=== PATIENT | male | born 1945 | race Caucasian/White ===

== ENCOUNTER 2023-12-31 19:42 | Emergency (ER) | payer MEDICARE, SELFPAY ==
--- NOTE | 2023-12-31 | ECG_ITS ---
Test Reason : sob Blood Pressure : / mmHG Vent. Rate : 084 BPM Atrial Rate : 084 BPM P-R Int : 232 ms QRS Dur : 138 ms QT Int : 404 ms P-R-T Axes : 082 -43 054 degrees QTc Int : 477 ms Sinus rhythm with 1st degree A-V block Left axis deviation Right bundle branch block Septal infarct , age undetermined Abnormal ECG No previous ECGs available Referred By: Generic ED Physician Electronically Signed By:BENJY SANTANA
--- NOTE | ~2023-12-31 | CT_ITS ---
EXAMINATION: CTA CHEST, ABDOMEN AND PELVIS CLINICAL INFORMATION: History of aneurysm with chest pain. Known AAA COMPARISON: No pertinent prior studies are available for comparison. TECHNIQUE: Multidetector volumetric imaging was performed from the thoracic inlet through the pubic symphysis both before as well as following administration of 100 mL of Omnipaque 350. Sagittal and coronal reformatted images were obtained on the technologist's workstation. Additional 2-D coronal and sagittal reformatted images and axial 3-D maximum intensity projection MIP images are generated on the CT workstation. This CT examination was performed using dose optimization techniques as appropriate, variously including the following: *Automated exposure control *Adjustment of mA and/or kV according to patient size (this includes techniques or standardized protocols for targeted exams where dose is matched to indication/reason for exam; i.e. extremities or head) *Use of iterative reconstruction technique DLP: 1081 mGy-cm VASCULAR FINDINGS: There is a tricuspid aortic valve with calcification of the leaflets. Mild coronary calcium is present. No thoracic aortic aneurysm is seen. Normal three-vessel branching pattern of the arch is present with patent great vessels. There are atherosclerotic changes seen in the transverse arch with some small areas of ulceration. The descending thoracic aorta is nonaneurysmal. Marked atherosclerotic changes are present in the infrarenal aorta which has marked irregular noncalcified plaque. There is aneurysmal dilatation of the infrarenal abdominal aorta with a maximum transverse dimension of around 4.0 cm (7:584). There is aneurysmal dilatation of the right common iliac artery, but not the left. Both internal iliac arteries are patent. External iliac arteries common femoral arteries and proximal profunda femoris and superficial femoral arteries are patent although with mild atherosclerotic disease. The celiac, SMA as well as NOBLE are all patent. There are single renal arteries seen bilaterally. There is a renal artery stenosis on the left present with luminal diameter of less than 3 mm. The left kidney is atrophic compared to the right. Although not carried out for evaluation pulmonary arteries, no pulmonary emboli are seen. NONVASCULAR FINDINGS: CHEST: Lung: There is mild emphysema and bronchial thickening. Bibasilar atelectasis is present. No focal consolidations or lung masses. Mediastinum: No hilar or mediastinal lymphadenopathy. Coronary Artery Calcification: Mild to moderate Pericardium/Pleura: No significant effusion. No pleural mass or thickening. Chest Wall/Axilla: Unremarkable ABDOMEN/PELVIS: Peritoneal Space: No significant free air or free fluid identified. Liver, Gallbladder, Biliary Tree: The liver is mildly prominent at 17 cm in length. No focal masses are seen aside from a single punctate granuloma. Patient status post cholecystectomy with pneumobilia which is often normal. Pancreas: Unremarkable Spleen: Unremarkable Adrenal Glands: There is a 3.2 cm water density mass arising from the lateral limb of the left adrenal gland. This is consistent with a benign adenoma with no need for additional imaging or follow-up Kidneys and Ureters: Left kidney is smaller and slightly atrophic. A benign left upper pole 3.0 cm Bosniak class I renal cyst is noted which requires no additional imaging or follow up. No solid renal masses are seen. The right kidney appears unremarkable. No hydronephrosis. Ureters are nondilated. Bladder: Unremarkable Gastrointestinal Tract: The small and large bowel are unremarkable aside from scattered colonic diverticula without diverticulitis. The appendix is unremarkable. Abdominal Wall: No significant hernia is appreciated. Lymph Nodes: No retroperitoneal lymphadenopathy. PELVIC VISCERA: Mild BPH. Seminal vesicles appear normal. OSSEUS STRUCTURES: Biconvex thoracolumbar scoliosis is present. Marked degenerative changes are seen throughout the spine CT/CT angio abdomen pelvis IMPRESSION: 1. No evidence of aortic dissection. 2. Infrarenal abdominal aortic aneurysm with maximum dimension of 4.0 cm. 3. Left renal artery stenosis with mildly atrophic left kidney. 4. Incidental note made of emphysema, cholecystectomy, benign left adrenal adenoma, colonic diverticulosis, BPH and degenerative changes in the spine. Fleischner guidelines were followed. Electronically signed by: Pacheco Cool MD 12/31/2023 10:58 PM EDT
--- NOTE | ~2023-12-31 | XR_ITS ---
EXAMINATION: XR CHEST CLINICAL INFORMATION: Shortness of breath COMPARISON: None available. TECHNIQUE: Frontal view of the chest was obtained. FINDINGS: No significant abnormality is noted involving the heart, lungs, mediastinum, bony thorax or soft tissues. Some left basilar atelectasis is present. XR/XR chest 1V IMPRESSION: Unremarkable examination. Electronically signed by: Pacheco Cool MD 12/31/2023 09:49 PM EDT RP
--- NOTE | ~2023-12-31 | CT_ITS ---
EXAMINATION: CT HEAD WITHOUT CONTRAST CLINICAL INFORMATION: Headache. Patient on Xarelto. COMPARISON: None available. TECHNIQUE: Contiguous axial imaging was performed from the skull base to vertex without intravenous administration of contrast. This CT examination was performed using dose optimization techniques as appropriate, variously including the following: *Automated exposure control. *Adjustment of mA and/or kV according to patient size (this includes techniques or standardized protocols for targeted exams where dose is matched to indication/reason for exam; i.e. extremities or head). *Use of iterative reconstruction technique. DLP: 702 mGy-cm FINDINGS: There is no evidence of acute intracranial hemorrhage or edematous territorial infarction. Seals-white matter differentiation is preserved. 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 A few foci of hypoattenuation in the periventricular and deep white matter are consistent with mild microangiopathy. The ventricles are normal in morphology and size. No evidence for obstructive hydrocephalus. No abnormal mass effect or midline shift. No extra-axial fluid collections. There is a 1.8 cm osteoma along the right aspect of the occipital bone. No acute soft tissue or osseous abnormalities. Mild mucosal thickening of the paranasal sinuses. The mastoid air cells and middle ear cavities are clear. CT/CT head/brain wo IV con IMPRESSION: 1. No evidence of acute intracranial hemorrhage or edematous territorial infarction. 2. Mild underlying microangiopathy. 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 Electronically signed by: Wm Key DO 12/31/2023 09:28 PM EDT
[2023-12-31 19:51] VITALS: BP 158/82; PULSE 110; O2SAT 98
[2023-12-31 20:01] VITALS: BP 155/78; PULSE 91; RESP 17; TEMP 36.7; O2SAT 96; BMI 31.0
--- NOTE | 2023-12-31 20:15 | ED_ITS ---
HPI - SOB/Dyspnea General Chief Complaint: Dyspnea Stated Complaint: diff breathing Time Seen by Provider: 12/31/23 20:15 Source: patient and family Mode of arrival: EMS Limitations: no limitations History of Present Illness ED Provider: audelia ISABEL Narrative: Patient's history of COPD sleep apnea oxygen dependent recently moved from [place] about 4 weeks ago and left his oxygen and nebulizer in [place] was at [facility] yesterday AMA ran out of his oxygen while sleeping woke up gasping for the ear with chest tightness hands came to the ER at room air patient was saturating 90% on 2 L 96% patient also does have aortic aneurysm size and location not clear Related Data Previous Rx's ?Medication ?Instructions ?Recorded Oxygen Home Use #1 ea 12/31/23 albuterol sulfate 2.5 mg/3 mL 2.5 mg (3 mL) inhalation Q4-6H PRN 12/31/23 (0.083 %) solution for nebulization shortness of breath or wheezing #90 mL albuterol sulfate 90 mcg/actuation 2 puff inhalation Q6H PRN 12/31/23 aerosol inhaler shortness of breath or wheezing #8.5 grams nebulizer accessories #1 ea 12/31/23 Allergies Allergy/AdvReac Type Severity Reaction Status Date / Time lemon Allergy Anaphylaxis Verified 12/31/23 20:05 morphine Allergy Anaphylaxis Verified 12/31/23 20:05 Review of Systems 2 Review of Systems: Yes all other systems are reviewed and are negative [facility] Social History Social History Smoked in Last 30 Days: Yes Use of substances other than those prescribed or required for medical reasons: No Advance Directives: No Advance Directives Information Provided: No Physical Exam 2 Vital Signs: Vital Signs: Last Vital Signs Temp 97.8 F 01/01/24 00:29 Pulse 66 01/01/24 00:29 Resp 12 01/01/24 00:29 BP 162/78 H 01/01/24 00:29 Pulse Ox 99 01/01/24 00:29 O2 Del Method Nasal Cannula 01/01/24 00:29 O2 Flow Rate 2 12/31/23 22:00 Oxygen Flow Rate 4 12/31/23 20:01 BMI result Body Mass Index 31.0 Appearance: Alert. Oriented X3. No acute distress. Eyes: PERRLA, No Nystagmus ENT: Pharynx normal. Oral Mucosa moist Neck: Normal inspection. Neck supple. CVS: Normal heart rate and rhythm. Pulses normal. Respiratory: No respiratory distress. Equal air entry bilateral, bilateral prolonged expiration no wheezing/rales/rhonchi Abdomen: Soft and nontender. Bowel sounds are present, no mass palpable, no CVA tenderness Skin: Skin warm and dry. Normal skin color. Normal skin turgor. Extremities: No lower extremity edema. No calf tenderness Neuro: Oriented X 3. No motor deficit. No sensory deficit.No cerebellar signs , cranial nerves II-XII intact Medications Administered Discontinued Medications Generic Name Dose Route Start Last Admin Trade Name Freq PRN Reason Stop Dose Admin Albuterol Sulfate 2 puff 12/31/23 23:47 01/01/24 00:01 Albuterol Sulfate 90 Mcg 8 Gm Inhaler INHALE 12/31/23 23:48 2 puff ONCE ONE Administration Iohexol 100 ml 12/31/23 22:14 12/31/23 22:15 Iohexol 350 Mg/Ml 100 Ml Infus..Btl IV 12/31/23 22:15 100 ml ONCE ONE Administration Medical Decision Making Medical Decision Making [facility] Narrative: Patient's COPD oxygen-dependent sleep apnea comes here for anxiety panic attack without oxygen at home workup is negative CTA chest and abdomen done to rule out aneurysm as patient had chest pain CTA showed 4 cm infrarenal aneurysm Differential Diagnosis Differential Diagnoses: The differential diagnosis associated with the presentation includes COPD/anxiety/panic attack/aneurysm Admission/Observation Consideration of admission/observation: Escalation of care including admission/observation considered Lab Data [facility] Lab Attestation statement: I reviewed the patient's lab results. 12/31/23 20:21 12/31/23 20:22 Labs: Lab Results 12/31/23 12/31/23 12/31/23 Range/Units 20:02 20:21 20:22 WBC 9.2 (4.8-10.8) X10*3/uL RBC 4.18 L (4.60-5.80) X10*6/uL Hgb 13.0 L (14.0-18.0) g/dl Hct 38.3 L (42.0-52.0) % MCV 91.6 (80.0-98.0) fL MCH 31.1 (27.0-33.0) pg MCHC 33.9 (31.0-36.0) g/dl RDW 15.0 (11.0-16.0) % Plt Count 165 (160-400) X10*3/uL MPV 11.1 (9.4-12.4) fL Immature Gran % (Auto) 0.3 (0.0-0.4) % Neut % (Auto) 71.8 (45-73) % Lymph % (Auto) 15.2 L (20-40) % [place] % (Auto) 6.3 (2-11) % Eos % (Auto) 5.6 H (0-4) % Baso % (Auto) 0.8 (0-2) % Lymph # (Auto) 1.4 (1.2-4.9) X10*3/uL [place] # (Auto) 0.6 (0.1-1.2) X10*3/uL Eos # (Auto) 0.5 H (0.0-0.4) X10*3/uL Baso # (Auto) 0.1 (0.0-0.2) X10*3/uL Abs Immat Gran (auto) 0.03 (0.00-0.03) X10*3/uL Absolute Neuts (auto) 6.6 (2.0-8.3) x10*3/uL Absolute Nucleated RBC 0.000 (0.0-0.012) X10*3/uL Nucleated RBC % (auto) 0.0 (0.0-0.2) /100WBC PT 16.4 H (10.9-12.4) SEC INR 1.4 H (0.9-1.1) VBG pH (7.32-7.43) VBG pCO2 mmHg VBG pO2 mmHg VBG HCO3 (22-26) mmol/L VBG O2 Saturation % VBG Base Excess mmol/L Sodium 142 (135-145) mmol/L Potassium 3.6 (3.3-5.1) mmol/L Chloride 106 (96-108) mmol/L Carbon Dioxide 27 (22-29) mmol/L Anion Gap 13 (12-20) BUN 23 H (9-16) mg/dL Creatinine 1.09 (0.5-1.4) mg/dL Estim Creat Clear Calc 67.5 Estimated GFR > 60 POC Glucose 149 H (60-115) mg/dL Random Glucose 149 H (60-115) mg/dL Calcium 8.8 (8.4-10.2) mg/dL Total Bilirubin 0.4 (0.0-1.0) mg/dL AST 18 (5-37) U/L ALT 17 (0-40) U/L Alkaline Phosphatase 113 (39-117) U/L Troponin I High Sens 3.4 (<3.5-35.0) ng/L B-Natriuretic Peptide 15 (<100) pg/mL Total Protein 6.7 (6.5-8.0) g/dL Albumin 3.5 (3.5-5.0) g/dL Ethyl Alcohol < 10 mg/dL 12/31/23 Range/Units 22:24 WBC (4.8-10.8) X10*3/uL RBC (4.60-5.80) X10*6/uL Hgb (14.0-18.0) g/dl Hct (42.0-52.0) % MCV (80.0-98.0) fL MCH (27.0-33.0) pg MCHC (31.0-36.0) g/dl RDW (11.0-16.0) % Plt Count (160-400) X10*3/uL MPV (9.4-12.4) fL Immature Gran % (Auto) (0.0-0.4) % Neut % (Auto) (45-73) % Lymph % (Auto) (20-40) % [place] % (Auto) (2-11) % Eos % (Auto) (0-4) % Baso % (Auto) (0-2) % Lymph # (Auto) (1.2-4.9) X10*3/uL [place] # (Auto) (0.1-1.2) X10*3/uL Eos # (Auto) (0.0-0.4) X10*3/uL Baso # (Auto) (0.0-0.2) X10*3/uL Abs Immat Gran (auto) (0.00-0.03) X10*3/uL Absolute Neuts (auto) (2.0-8.3) x10*3/uL Absolute Nucleated RBC (0.0-0.012) X10*3/uL Nucleated RBC % (auto) (0.0-0.2) /100WBC PT (10.9-12.4) SEC INR (0.9-1.1) VBG pH 7.44 H (7.32-7.43) VBG pCO2 47 mmHg VBG pO2 126 mmHg VBG HCO3 32 H (22-26) mmol/L VBG O2 Saturation 100.0 % VBG Base Excess 7.5 mmol/L Sodium (135-145) mmol/L Potassium (3.3-5.1) mmol/L Chloride (96-108) mmol/L Carbon Dioxide (22-29) mmol/L Anion Gap (12-20) BUN (9-16) mg/dL Creatinine (0.5-1.4) mg/dL Estim Creat Clear Calc Estimated GFR POC Glucose (60-115) mg/dL Random Glucose (60-115) mg/dL Calcium (8.4-10.2) mg/dL Total Bilirubin (0.0-1.0) mg/dL AST (5-37) U/L ALT (0-40) U/L Alkaline Phosphatase (39-117) U/L Troponin I High Sens (<3.5-35.0) ng/L B-Natriuretic Peptide (<100) pg/mL Total Protein (6.5-8.0) g/dL Albumin (3.5-5.0) g/dL Ethyl Alcohol mg/dL Independent Interpretation I performed an independent interpretation of an: EKG Interpretation: Sinus rhythm with heart rate 84 beats per minute first-degree heart block left axis deviation right bundle-branch block no acute ST-T no acute ischemia Critical Care Time Critical Care Time Critical Care Time: Yes Total Critical Care Time: 55 Attestation: The patient was critically ill with a high probability of imminent or life threatening deterioration. I spent greater than ?60??minutes of discontinuous time evaluating the patient,delivering critical care at the bedside, discussing and evaluating pertinent data with consultants. Critical care time does not include time spent performing separately billable procedures or teaching. Total time spent performing critical care was 55???minutes. Discharge Plan Discharge Clinical Impression: Acute exacerbation of chronic obstructive airways disease, Chronic hypoxic respiratory failure Patient Disposition: Home, Self-Care Instructions: COPD (Chronic Obstructive Pulmonary Disease) (ED), Hypoxemia (DC), Chronic Respiratory Failure (DC) Additional Instructions: You have COPD oxygen-dependent 2 L during daytime and 4 L at the time while sleeping and using the CPAP Prescriptions: New (DME) Oxygen Home Use Kit See Rx Instructions .Route Qty: 1 0RF Rx Instructions: 2 L during daytime and 4 L at the time of sleep (DME) nebulizer accessories Kit See Rx Instructions .Route Qty: 1 0RF Rx Instructions: As directed albuterol sulfate 2.5 mg /3 mL (0.083 %) solution for nebulization 2.5 mg inhalation Q4-6H PRN (Reason: shortness of breath or wheezing) Qty: 90 0RF albuterol sulfate 90 mcg/actuation HFA aerosol inhaler 2 puff inhalation Q6H PRN (Reason: shortness of breath or wheezing) Qty: 8.5 0RF Interventions: ED Discharge Assessment Last Done: 01/01/24 00:29 Discharge Date/Time: 01/01/24 00:30 Print Language: [place]ese
[2023-12-31 20:26] LABS: Basophils Absolute Auto 0.1 X10*3/uL (0.0-0.2); Basophils Percent Auto 0.8 % (0-2); Eosinophils Absolute Auto 0.5 X10*3/uL (0.0-0.4); Eosinophils Percent Auto 5.6 % (0-4); Hematocrit 38.3 % (42.0-52.0); Imm Gran Abs Auto 0.03 X10*3/uL (0.00-0.03); Imm Gran Pct Auto 0.3 % (0.0-0.4); Lymphocytes Absolute Auto 1.4 X10*3/uL (1.2-4.9); Lymphocytes Percent Auto 15.2 % (20-40); MANUAL DIFF FLAG NO; Mean Corpuscular HGB Conc 33.9 g/dl (31.0-36.0); Mean Corpuscular Hemoglobin 31.1 pg (27.0-33.0); Mean Corpuscular Volume 91.6 fL (80.0-98.0); Mean Platelet Volume 11.1 fL (9.4-12.4); Monocytes Absolute Auto 0.6 X10*3/uL (0.1-1.2); Monocytes Percent Auto 6.3 % (2-11); Neutrophils Absolute Auto 6.6 x10*3/uL (2.0-8.3); Neutrophils Percent Auto 71.8 % (45-73); Platelet Count 165 X10*3/uL (160-400); Red Blood Count 4.18 X10*6/uL (4.60-5.80); White Blood Count 9.2 X10*3/uL (4.8-10.8)
[2023-12-31 20:36] LABS: INTERNATIONAL NORM RATIO 1.4 (0.9-1.1); Prothrombin Time 16.4 SEC (10.9-12.4)
[2023-12-31 20:41] LABS: Ethanol < 10 mg/dL
[2023-12-31 20:42] LABS: Alanine Aminotransferase 17 U/L (0-40); Albumin Level 3.5 g/dL (3.5-5.0); Alkaline Phosphatase 113 U/L (39-117); Anion Gap 13 (12-20); Aspartate Amino Transferase 18 U/L (5-37); Bilirubin Total 0.4 mg/dL (0.0-1.0); Blood Urea Nitrogen 23 mg/dL (9-16); Calcium 8.8 mg/dL (8.4-10.2); Carbon Dioxide 27 mmol/L (22-29); Chloride 106 mmol/L (96-108); Creatinine Clr Calc Pharmacy 67.5; Estimated Glomerular Filt Rate > 60; Glucose Random 149 mg/dL (60-115); Potassium 3.6 mmol/L (3.3-5.1); Sodium 142 mmol/L (135-145); Total Protein 6.7 g/dL (6.5-8.0)
[2023-12-31 20:46] LABS: B Type Natriuretic Peptide 15 pg/mL (<100)
[2023-12-31 20:47] LABS: Glucose, Whole Blood 149 mg/dL (60-115)
[2023-12-31 20:49] LABS: Troponin-I High Sensitivity 3.4 ng/L (<3.5-35.0)
[2023-12-31 21:34] VITALS: BP 150/79; PULSE 70; RESP 12; TEMP 37.1; O2SAT 97
[2023-12-31 22:00] VITALS: BP 151/88; PULSE 66; RESP 12; O2SAT 98
[2023-12-31] MEDS: iohexoL 350 MG/ML 100 ML INFUS..BTL IV (22:15)
[2023-12-31 22:30] LABS: VBG Base Excess 7.5 mmol/L; VBG HCO3 32 mmol/L (22-26); VBG pCO2 47 mmHg; VBG pH 7.44 (7.32-7.43); VBG pO2 126 mmHg
[2023-12-31 22:49] LABS: Venous Blood Gas Refer to POC result
[2023-12-31 23:13] VITALS: BP 162/78; PULSE 66; RESP 12; TEMP 36.6; O2SAT 99
[2024-01-01] MEDS: Albuterol Sulfate 90 MCG 8 GM INHALER 2 PUFF INHALE (00:01)
[2024-01-01 00:29] VITALS: BP 162/78; PULSE 66; RESP 12; TEMP 36.6; O2SAT 99
== END 2024-01-01 00:30 | disposition home or self-care (01) ==
PROVIDERS: Emergency Provider Internal Medicine
DX: J44.1 Chronic obstructive pulmonary disease with (acute) exacerbation (principal); J96.11 Chronic respiratory failure with hypoxia; R07.9 Chest pain, unspecified; I11.0 Hypertensive heart disease with heart failure; I50.9 Heart failure, unspecified; E78.5 Hyperlipidemia, unspecified; R51.9 Headache, unspecified; Z79.899 Other long term (current) drug therapy
CPT/HCPCS: 36415; 70450; 71045; 71275; 74174; 80053; 80307; 82803; 82947; 83880; 84484; 85025; 85610; 93005; 99284; 99285; Q9967

== ENCOUNTER 2024-01-09 09:53 | Outpatient (AMB) | payer MEDICARE, SELFPAY ==
--- NOTE | 2024-01-09 10:02 | MHC.PC.OV ---
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 Requesting referral to [facility]. O2 Stats while on oxygen at 4 liters was 97 resting. O2 stats off oxygen for 15 minutes was 94 resting. Typewriter Ribbon Winder Required: No Allergies lemon Allergy (Verified 01/11/24 22:14) Anaphylaxis morphine Allergy (Verified 01/11/24 22:14) Anaphylaxis Tobacco use date assessed: 01/09/24 Fall risk assessment: 2 + Falls in past year Last assessed Fall Risk: 01/09/24 Dental Screening Dental Screen Date: 01/09/24 Did you have a dental visit in the last 12 months?: Yes Did you have a dental problem in the last 6 months where you did not have access to dental care?: No Was dental information given to patient?: Patient has dentist HPI HPI Comments History of Present Illness Details The patient is a 78 year old male with a past medical history of type 2 diabetes, CAD, CHF, COPD, chronic back pain presenting to [facility] care. Moved from [place] there has been some back and forth where patient is living now his niece is helping him with medical appts etc. His records have not yet been received In the ER one week ago for COPD exacerbation. COPD oxygen-dependent 2 L during daytime and 4 L at the time while sleeping and using the CPAP CV: Patient believes he has CHF, CAD-believes he had cardiac stents. Also reports a history of blood clots in the leg. Has chronic toe/foot wounds, sacral wound. Needs to be set up with vascular and wound care. Says he is on aspirin, plavix and xarelto as well as lipitor, lasix, History of chronic pain-lumbar, neck. Says past medications have included methadone, oxycodone, vicodin. Currently on tramadol, lyrica ROS No fevers Chronic sacral, extremity wounds PHYSICAL EXAM: GENERAL: Alert and oriented x 3. NAD EYES: EOMI. Anicteric. HENT: Moist mucous membranes. No scleral icterus. No cervical lymphadenopathy. LUNGS: Clear to auscultation bilaterally. CARDIOVASCULAR: Regular rate and rhythm. No murmur. No JVD. ABDOMEN: Soft, non-tender +bs EXTREMITIES: No edema. Non-tender. SKIN: Warm NEUROLOGIC: No focal neurological deficits. CN II-XII grossly intact PSYCHIATRIC: Cooperative. Appropriate mood and affect [facility] Social History Housing: House Patient Tobacco Use Status: Current everyday Tobacco user Cigarettes Per Day: 2 Years Smoked: 50 plus Smoked in Last 30 Days: Yes e-Cigarette/Vaping Use: Never Used Second Hand Smoke Exposure: No Use of substances other than those prescribed or required for medical reasons: No Advance Directives: No Advance Directives Information Provided: Yes Do you have a plan to hurt others: No Plan service: No Current occupational status: retired Cognitive needs: No Hearing needs: Yes Vision needs: Yes Questionnaire PHQ-9 Over the last 2 weeks, how often have you been bothered by any of the following problems? 1. Little interest or pleasure in doing things: more than half the days 2. Feeling down, depressed, or hopeless: more than half the days 3. Trouble falling or staying asleep, or sleeping too much: more than half the days 4. Feeling tired or having little energy: more than half the days 5. Poor appetite or overeating: more than half the days 6. Feeling bad about yourself - or that you are a failure or have let yourself or your family down: more than half the days 7. Trouble concentrating on things, such as reading the newspaper or watching television: more than half the days 8. Moving or speaking so slowly that other people could have noticed. Or the opposite - being so fidgety or restless that you have been moving around a lot more than usual: more than half the days 9. Thoughts that you would be better off or of hurting yourself in some way: not at all Total score: 16 Source: Developed by Drs. Russell Crouch, Tania Raya, Graham Luna and colleagues, with an educational jordan from [employer]. Thrive Questionnaire I am a: Patient What is your living situation today?: I have a steady place to live Within the past 12 months, did the food you bought not last and you didn't have the money to get more?: Sometimes True Within the past 12 months, did you worry whether your food would run out before you got money to buy more?: Sometimes True Do you have trouble paying for medicines?: Yes Do you have trouble getting transportation to medical appointments?: Yes Do you have trouble paying your heating and electricity bill?: Yes Do you have trouble taking care of your child, family member or friend?: Yes Do you have trouble with day-to-day activities such as bathing, preparing meals, shopping, managing finances, etc.?: Yes Are you currently unemployed and looking for a job?: No Are you interested in more education?: No Please select the resources that you would like help with: Food, Paying for medicine, Transportation, Utilities, Care for elder or disabled and Daily support Currently or been in a relationship where the following occur: I choose not to answer THRIVE Score: 4 AUDIT C Alcohol Use Questionnaire (AUDIT-C) 1. How often do you have a drink containing alcohol?: Never 3. How often do you have six or more drinks on one occasion?: Never Total Score: 0 ANTONIA-7 AMB Questionnaire ANTONIA-7 Date ANTONIA - 7 assessed: 01/09/24 Feeling nervous, anxious, or on edge: 2 = More than half the days Not being able to stop or control worryin = Nearly every day Worrying too much about different things: 3 = Nearly every day Trouble relaxin = Nearly every day Being so restless that it is hard to sit still: 2 = More than half the days Feeling afraid as if something awful might happen: 2 = More than half the days Source: Developed by Drs. Russell Crouch, Tania Raya, Graham Luna and colleagues, with an educational jordan from [employer]. ACT Questionnaire In the past 4 weeks, how much of the time did your asthma keep you from getting as much done at work, school or at home?: Most of the time During the past 4 weeks, how often have you had shortness of breath?: More than once a day (3 or more) During the past 4 weeks, how often did your asthma symptoms wake you up at night or earlier than usual in the morning?: 2-3 nights a week During the past 4 weeks, how often have you had to use your rescue inhaler or nebulizer medication?: 2-3 times a week How would you rate your asthma control during the past 4 weeks?: Poorly controlled Score: 10 Physical exam (Primary Care) Vital Signs: Last Vital Signs Temp 98.2 F 01/09/24 10:13 Pulse 76 01/09/24 10:13 Resp 16 01/09/24 10:13 BP 132/64 01/09/24 10:13 Pulse Ox 94 01/09/24 10:28 Oxygen Delivery Method Room Air 01/09/24 10:28 Oxygen Flow Rate 4 01/09/24 10:13 Tobacco/Smoking Status: Tobacco use Status Tobacco use date assessed 01/09/24 01/09/24 10:26 Patient Tobacco Use Status Current everyday Tobacco 01/09/24 10:26 e-Cigarette/Vaping Use Never Used 01/09/24 10:26 PHQ-9: PHQ-9 Score PHQ-9: Total score 16 01/09/24 11:14 Currently or been in a relationship where the following occur: I choose not to answer Coding Level of Care Code New Pt Level 5 (12660) Complex EM visit Add On G2211 Diagnoses Encounter to establish care Z76.89 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 Heart failure type: combined systolic and diastolic Heart failure chronicity: chronic Chronic obstructive pulmonary disease, unspecified COPD type J44.9 COPD type: unspecified COPD Infrarenal abdominal aortic aneurysm (AAA) without rupture I71.43 Peripheral vascular disease I73.9 Time Spent (min) 70 Assessment & Plan Assessment & Plan (1) Encounter to establish care: Code(s): Z76.89 - Persons encountering health services in other specified circumstances Category: Medical Plan: 78 year old to establish care. Past medical, surgical, social and family history reviewed. Medically complex. Is homebound without assistance. Using walker with seat. Cant use without resting >20 or 30 feet Needs pulm, cardiology, vascular, wound, home health, pain management-referrals placed. (2) CHF (congestive heart failure): Code(s): I50.9 - Heart failure, unspecified Category: Medical Qualifiers: Heart failure type: combined systolic and diastolic Heart failure chronicity: chronic Qualified Code(s): I50.42 - Chronic combined systolic (congestive) and diastolic (congestive) heart failure (3) COPD (chronic obstructive pulmonary disease): Code(s): J44.9 - Chronic obstructive pulmonary disease, unspecified Category: Medical Qualifiers: COPD type: unspecified COPD Qualified Code(s): J44.9 - Chronic obstructive pulmonary disease, unspecified (4) Infrarenal abdominal aortic aneurysm (AAA) without rupture: Code(s): I71.43 - Infrarenal abdominal aortic aneurysm, without rupture Category: Medical (5) Peripheral vascular disease: Code(s): I73.9 - Peripheral vascular disease, unspecified Category: Medical Plan Medically complex. PCP notes requested. Generalized weakness, chronic wounds, CHF COPD-referrals in place Orders: Orders AMB Hemoglobin A1c 01/09/24 Z13.9 - Encounter for screening, unspecified Referrals Cardiology Referral I50.9 - Heart failure, unspecified Pulmonology Referral J44.9 - Chronic obstructive pulmonary disease, unspecified Wound Care Referral L89.159 - Pressure ulcer of sacral region, unspecified stage Home Health Referral I50.9 - Heart failure, unspecified, J44.9 - Chronic obstructive pulmonary disease, unspecified, L89.159 - Pressure ulcer of sacral region, unspecified stage Vascular Surgery Referral I71.43 - Infrarenal abdominal aortic aneurysm, without rupture, I73.9 - Peripheral vascular disease, unspecified Medications: New pregabalin 100 mg PO BID 180 caps 3RF rivaroxaban (Xarelto) for 35 days 10 mg PO DAILY 90 tabs 3RF tramadol 50 mg PO Q6H PRN 120 tabs 0RF pain cyclobenzaprine 10 mg PO BEDTIME PRN 90 tabs 3RF muscle spasm
[2024-01-09 10:13] VITALS: BP 132/64; PULSE 76; RESP 16; TEMP 36.8; O2SAT 97
[2024-01-09 10:28] VITALS: O2SAT 94
== END 2024-01-09 11:45 | disposition home or self-care (01) ==
PROVIDERS: PCP Internal Medicine; Visit Provider Internal Medicine
DX: I50.42 Chronic combined systolic (congestive) and diastolic (congestive) heart failure (principal); J44.9 Chronic obstructive pulmonary disease, unspecified; I71.43 Infrarenal abdominal aortic aneurysm, without rupture; I73.9 Peripheral vascular disease, unspecified; Z76.89 Persons encountering health services in other specified circumstances

== ENCOUNTER → 2024-01-09 09:53 | Outpatient (BNVA) | payer MEDICARE, SELFPAY | PROVIDERS: Visit Provider Internal Medicine | DX: I50.42 Chronic combined systolic (congestive) and diastolic (congestive) heart failure (principal); I71.43 Infrarenal abdominal aortic aneurysm, without rupture; I73.9 Peripheral vascular disease, unspecified; J44.9 Chronic obstructive pulmonary disease, unspecified; Z76.89 Persons encountering health services in other specified circumstances | CPT/HCPCS: 83036; 99202 ==

== ENCOUNTER → 2024-01-11 22:02 | Outpatient (BNV) | payer MEDICARE, SELFPAY | PROVIDERS: Emergency Provider Student in an Organized Health Care Education/Training Program; Visit Provider Internal Medicine | DX: I45.2 Bifascicular block (principal) | CPT/HCPCS: 93010 ==

== ENCOUNTER 2024-01-11 22:04 | Emergency (ER) | payer MEDICARE, SELFPAY ==
--- NOTE | 2024-01-11 | ECG_ITS ---
Test Reason : CHEST PAIN Blood Pressure : / mmHG Vent. Rate : 093 BPM Atrial Rate : 093 BPM P-R Int : 202 ms QRS Dur : 164 ms QT Int : 416 ms P-R-T Axes : 080 -66 017 degrees QTc Int : 517 ms Normal sinus rhythm Right bundle branch block Left anterior fascicular block Bifascicular block Abnormal ECG When compared with ECG of 31-DEC-2023 20:14, No significant changes seen Referred By: Generic ED Physician Electronically Signed By:DMITRY HUDDLESTON
--- NOTE | ~2024-01-11 | XR_ITS ---
EXAMINATION: XR TOES, RIGHT CLINICAL INFORMATION: Toe infection COMPARISON: None available. TECHNIQUE: 3 views of the right toes were obtained. FINDINGS: The patient is status post amputation of the proximal first metatarsal. There is soft tissue swelling in the second digit. There is question of a minimally displaced fracture in the head of the second digit proximal phalanx which is associated with soft tissue swelling XR/XR toe RT min 2V IMPRESSION: There is question of a minimally displaced fracture in the head of the second digit proximal phalanx which is associated with soft tissue swelling. Correlate with exam and history. Electronically signed by: Russell Rios MD 01/11/2024 11:21 PM EDT
--- NOTE | ~2024-01-11 | XR_ITS ---
EXAMINATION: XR CHEST CLINICAL INFORMATION: Chest pain COMPARISON: 12/30/2073 TECHNIQUE: Frontal view of the chest was obtained. FINDINGS: Cardiomediastinal silhouette is stable. Low lung volumes. Mild bronchial wall thickening and streaky opacities without consolidation. No pleural effusion or pneumothorax. XR/XR chest 1V IMPRESSION: Low lung volumes. Mild bronchial wall thickening and streaky opacities suggesting small airways disease. No consolidation. Electronically signed by: Russell Rios MD 01/11/2024 10:53 PM EDT
[2024-01-11 22:08] VITALS: BP 107/59; BP 112/68; PULSE 87; PULSE 95; RESP 18; TEMP 36.7; O2SAT 97; O2SAT 99; BMI 32.7
[2024-01-11 22:24] LABS: MANUAL DIFF FLAG NO
[2024-01-11 22:25] LABS: Basophils Absolute Auto 0.1 X10*3/uL (0.0-0.2); Basophils Percent Auto 0.9 % (0-2); Eosinophils Absolute Auto 0.4 X10*3/uL (0.0-0.4); Eosinophils Percent Auto 3.8 % (0-4); Hematocrit 36.1 % (42.0-52.0); Hemoglobin 12.6 g/dl (14.0-18.0); Imm Gran Abs Auto 0.03 X10*3/uL (0.00-0.03); Imm Gran Pct Auto 0.3 % (0.0-0.4); Lymphocytes Absolute Auto 1.6 X10*3/uL (1.2-4.9); Lymphocytes Percent Auto 14.6 % (20-40); Mean Corpuscular HGB Conc 34.9 g/dl (31.0-36.0); Mean Corpuscular Hemoglobin 31.1 pg (27.0-33.0); Mean Corpuscular Volume 89.1 fL (80.0-98.0); Mean Platelet Volume 10.8 fL (9.4-12.4); Monocytes Absolute Auto 0.7 X10*3/uL (0.1-1.2); Monocytes Percent Auto 6.1 % (2-11); Neutrophils Absolute Auto 8.3 x10*3/uL (2.0-8.3); Neutrophils Percent Auto 74.3 % (45-73); Platelet Count 212 X10*3/uL (160-400); Red Blood Count 4.05 X10*6/uL (4.60-5.80); Red Cell Distribution Width 14.5 % (11.0-16.0); White Blood Count 11.1 X10*3/uL (4.8-10.8)
--- NOTE | 2024-01-11 22:31 | ED.CHESTPAIN ---
HPI - Chest Pain General Chief Complaint: Chest Pain Stated Complaint: Chest pain Time Seen by Provider: 01/11/24 22:17 History of Present Illness HPI narrative: 78-year-old male with past medical history of peripheral vascular disease, CHF, COPD on 2 L baseline, hypertension, hyperlipidemia - presenting with chest pain - patient's symptoms began this afternoon around 15:00 with substernal sharp chest pain that has been intermittent. He also endorses shortness of breath however denies diaphoresis. He states that he has been experiencing tingling in his bilateral hands since onset of chest pain. Patient called EMS tonight and was given sublingual nitro and aspirin with improvement in symptoms. Patient is currently not experiencing chest pain - patient denies fevers, chills, abdominal pain, nausea, vomiting Related Data Home Medications ?Medication ?Instructions ?Recorded ?Confirmed atorvastatin 40 mg tablet 40 mg PO DAILY 01/09/24 celecoxib 100 mg capsule 200 mg PO DAILY 01/09/24 clopidogrel 75 mg tablet 75 mg PO DAILY 01/09/24 dexlansoprazole 60 mg 60 mg PO DAILY 01/09/24 capsule,biphase delayed release famotidine 20 mg tablet 20 mg PO DAILY 01/09/24 furosemide 40 mg tablet 40 mg PO DAILY 01/09/24 magnesium 250 mg tablet 250 mg PO DAILY 01/09/24 pantoprazole 40 mg tablet,delayed 40 mg PO DAILY 01/09/24 release tamsulosin 0.4 mg capsule 0.8 mg PO DAILY 01/09/24 Previous Rx's ?Medication ?Instructions ?Recorded Oxygen Home Use #1 ea 12/31/23 albuterol sulfate 2.5 mg/3 mL 2.5 mg (3 mL) inhalation Q4-6H PRN 12/31/23 (0.083 %) solution for nebulization shortness of breath or wheezing #90 mL albuterol sulfate 90 mcg/actuation 2 puff inhalation Q6H PRN 12/31/23 aerosol inhaler shortness of breath or wheezing #8.5 grams nebulizer accessories #1 ea 12/31/23 cyclobenzaprine 10 mg tablet 10 mg PO BEDTIME PRN muscle spasm 01/09/24 #90 tabs pregabalin 100 mg capsule 100 mg PO BID #180 caps 01/09/24 rivaroxaban 10 mg tablet (Xarelto) 10 mg PO DAILY #90 tabs 01/09/24 tramadol 50 mg tablet 50 mg PO Q6H PRN pain #120 tabs 01/09/24 Allergies Allergy/AdvReac Type Severity Reaction Status Date / Time lemon Allergy Anaphylaxis Verified 01/11/24 22:14 morphine Allergy Anaphylaxis Verified 01/11/24 22:14 [facility] Social History Social History Housing: House Patient Tobacco Use Status: Current everyday Tobacco user Cigarettes Per Day: 2 Years Smoked: 50 plus Smoked in Last 30 Days: Yes e-Cigarette/Vaping Use: Never Used Second Hand Smoke Exposure: No Use of substances other than those prescribed or required for medical reasons: No Advance Directives: No Advance Directives Information Provided: Yes Do you have a plan to hurt others: No Plan service: No Current occupational status: retired Cognitive needs: No Hearing needs: Yes Vision needs: Yes Physical Exam Vital Signs: Vital Signs: Last Vital Signs Temp 98.7 F 01/11/24 23:39 Pulse 56 01/12/24 01:58 Resp 16 01/12/24 01:58 BP 118/51 L 01/11/24 23:39 Pulse Ox 100 01/11/24 23:39 O2 Del Method Nasal Cannula 01/11/24 23:39 O2 Flow Rate 4 01/11/24 23:39 Oxygen Flow Rate 4 01/11/24 22:08 BMI result Body Mass Index 32.7 Medications Administered Discontinued Medications Generic Name Dose Route Start Last Admin Trade Name Freq PRN Reason Stop Dose Admin Al Hydroxide/Mg Hydroxide 30 ml 01/12/24 01:54 01/12/24 02:15 Magnesium Hydrox/Alum Hydrox 30 Ml Oral.Susp PO 01/12/24 01:55 30 ml ONCE ONE Administration Albuterol/Ipratropium 3 ml 01/12/24 01:34 01/12/24 01:57 Albuterol/Iprat 2.5/0.5mg 3 Ml Ampul.Neb INHALE 01/12/24 01:35 3 ml ONCE ONE Administration Medical Decision Making Medical Decision Making MDM Narrative: This is a 78-year-old male with past medical history of peripheral vascular disease, CHF, hypertension, hyperlipidemia, COPD on 2 L baseline presenting for chest pain. Patient also complaining of toe pain - I am concerned for the following; ACS/angina, pneumonia, costochondritis, acid reflux - less likely COPD exacerbation - patient given aspirin and nitro by EMS. I ordered Pepcid, Maalox and DuoNeb - labs notable for mild leukocytosis, normal lactate, negative troponin, negative BNP - toe x-ray positive for fracture on my interpretation and radiologist's impression - blood gas within normal limits - on reassessment patient is still endorsing chest pain - I consulted infantryman Dr. Lang, who does not believe this to be ACS related and thinks that this is atypical chest pain. He recommends 3rd troponin and discharge home if still negative - patient signed out to night provider Differential Diagnosis Differential Diagnoses: The differential diagnosis associated with the presentation includes ACS/angina, pneumonia, CT contrast, acid reflux Toe fracture Lab Data 01/11/24 22:16 01/11/24 22:16 Labs: Lab Results 01/11/24 01/11/24 01/11/24 Range/Units 22:05 22:16 22:24 WBC 11.1 H (4.8-10.8) X10*3/uL RBC 4.05 L (4.60-5.80) X10*6/uL Hgb 12.6 L (14.0-18.0) g/dl Hct 36.1 L (42.0-52.0) % MCV 89.1 (80.0-98.0) fL MCH 31.1 (27.0-33.0) pg MCHC 34.9 (31.0-36.0) g/dl RDW 14.5 (11.0-16.0) % Plt Count 212 D (160-400) X10*3/uL MPV 10.8 (9.4-12.4) fL Immature Gran % (Auto) 0.3 (0.0-0.4) % Neut % (Auto) 74.3 H (45-73) % Lymph % (Auto) 14.6 L (20-40) % [place] % (Auto) 6.1 (2-11) % Eos % (Auto) 3.8 (0-4) % Baso % (Auto) 0.9 (0-2) % Lymph # (Auto) 1.6 (1.2-4.9) X10*3/uL [place] # (Auto) 0.7 (0.1-1.2) X10*3/uL Eos # (Auto) 0.4 (0.0-0.4) X10*3/uL Baso # (Auto) 0.1 (0.0-0.2) X10*3/uL Abs Immat Gran (auto) 0.03 (0.00-0.03) X10*3/uL Absolute Neuts (auto) 8.3 (2.0-8.3) x10*3/uL Absolute Nucleated RBC 0.000 (0.0-0.012) X10*3/uL Nucleated RBC % (auto) 0.0 (0.0-0.2) /100WBC Hold Blue Top SEE NOTE VBG pH (7.32-7.43) VBG pCO2 mmHg VBG pO2 mmHg VBG HCO3 (22-26) mmol/L VBG O2 Saturation % VBG Base Excess mmol/L Sodium 140 (135-145) mmol/L Potassium 3.6 (3.3-5.1) mmol/L Chloride 104 (96-108) mmol/L Carbon Dioxide 24 (22-29) mmol/L Anion Gap 16 (12-20) BUN 20 H (9-16) mg/dL Creatinine 1.04 (0.5-1.4) mg/dL Estim Creat Clear Calc 72.6 Estimated GFR > 60 Random Glucose 137 H (60-115) mg/dL Lactic Acid (0.5-2.0) mmol/L Calcium 8.6 (8.4-10.2) mg/dL Total Bilirubin 0.4 (0.0-1.0) mg/dL AST 21 (5-37) U/L ALT 17 (0-40) U/L Alkaline Phosphatase 106 (39-117) U/L Troponin I High Sens 5.3 D (<3.5-35.0) ng/L B-Natriuretic Peptide 11 (<100) pg/mL Total Protein 6.7 (6.5-8.0) g/dL Albumin 3.6 (3.5-5.0) g/dL 01/11/24 01/11/24 01/12/24 Range/Units 22:59 23:05 00:32 WBC (4.8-10.8) X10*3/uL RBC (4.60-5.80) X10*6/uL Hgb (14.0-18.0) g/dl Hct (42.0-52.0) % MCV (80.0-98.0) fL MCH (27.0-33.0) pg MCHC (31.0-36.0) g/dl RDW (11.0-16.0) % Plt Count (160-400) X10*3/uL MPV (9.4-12.4) fL Immature Gran % (Auto) (0.0-0.4) % Neut % (Auto) (45-73) % Lymph % (Auto) (20-40) % [place] % (Auto) (2-11) % Eos % (Auto) (0-4) % Baso % (Auto) (0-2) % Lymph # (Auto) (1.2-4.9) X10*3/uL [place] # (Auto) (0.1-1.2) X10*3/uL Eos # (Auto) (0.0-0.4) X10*3/uL Baso # (Auto) (0.0-0.2) X10*3/uL Abs Immat Gran (auto) (0.00-0.03) X10*3/uL Absolute Neuts (auto) (2.0-8.3) x10*3/uL Absolute Nucleated RBC (0.0-0.012) X10*3/uL Nucleated RBC % (auto) (0.0-0.2) /100WBC Hold Blue Top VBG pH 7.46 H (7.32-7.43) VBG pCO2 44 mmHg VBG pO2 79 mmHg VBG HCO3 31 H (22-26) mmol/L VBG O2 Saturation 98.0 % VBG Base Excess 7.2 mmol/L Sodium (135-145) mmol/L Potassium (3.3-5.1) mmol/L Chloride (96-108) mmol/L Carbon Dioxide (22-29) mmol/L Anion Gap (12-20) BUN (9-16) mg/dL Creatinine (0.5-1.4) mg/dL Estim Creat Clear Calc Estimated GFR Random Glucose (60-115) mg/dL Lactic Acid 1.4 (0.5-2.0) mmol/L Calcium (8.4-10.2) mg/dL Total Bilirubin (0.0-1.0) mg/dL AST (5-37) U/L ALT (0-40) U/L Alkaline Phosphatase (39-117) U/L Troponin I High Sens 7.4 (<3.5-35.0) ng/L B-Natriuretic Peptide (<100) pg/mL Total Protein (6.5-8.0) g/dL Albumin (3.5-5.0) g/dL Discharge Plan Discharge Clinical Impression: Chest pain Prescriptions: No Action (DME) Oxygen Home Use Kit See Rx Instructions .Route Qty: 1 0RF Rx Instructions: 2 L during daytime and 4 L at the time of sleep (DME) nebulizer accessories Kit See Rx Instructions .Route Qty: 1 0RF Rx Instructions: As directed albuterol sulfate 2.5 mg /3 mL (0.083 %) solution for nebulization 2.5 mg inhalation Q4-6H PRN (Reason: shortness of breath or wheezing) Qty: 90 0RF albuterol sulfate 90 mcg/actuation HFA aerosol inhaler 2 puff inhalation Q6H PRN (Reason: shortness of breath or wheezing) Qty: 8.5 0RF famotidine 20 mg tablet 20 mg PO DAILY atorvastatin 40 mg tablet 40 mg PO DAILY clopidogrel 75 mg tablet 75 mg PO DAILY tamsulosin 0.4 mg capsule 0.8 mg PO DAILY furosemide 40 mg tablet 40 mg PO DAILY pantoprazole 40 mg tablet,delayed release (DR/EC) 40 mg PO DAILY celecoxib 100 mg capsule 200 mg PO DAILY magnesium 250 mg tablet 250 mg PO DAILY dexlansoprazole 60 mg capsule,biphase delayed releas 60 mg PO DAILY Xarelto 10 mg tablet 10 mg PO DAILY Qty: 90 3RF Rx Instructions: for 35 days tramadol 50 mg tablet 50 mg PO Q6H PRN (Reason: pain) Qty: 120 0RF cyclobenzaprine 10 mg tablet 10 mg PO BEDTIME PRN (Reason: muscle spasm) Qty: 90 3RF pregabalin 100 mg capsule 100 mg PO BID Qty: 180 3RF Print Language: Lebanese
[2024-01-11 22:44] LABS: Alanine Aminotransferase 17 U/L (0-40); Albumin Level 3.6 g/dL (3.5-5.0); Alkaline Phosphatase 106 U/L (39-117); Anion Gap 16 (12-20); Aspartate Amino Transferase 21 U/L (5-37); Bilirubin Total 0.4 mg/dL (0.0-1.0); Blood Urea Nitrogen 20 mg/dL (9-16); Calcium 8.6 mg/dL (8.4-10.2); Carbon Dioxide 24 mmol/L (22-29); Chloride 104 mmol/L (96-108); Creatinine Clr Calc Pharmacy 72.6; Estimated Glomerular Filt Rate > 60; Glucose Random 137 mg/dL (60-115); Potassium 3.6 mmol/L (3.3-5.1); Sodium 140 mmol/L (135-145); Total Protein 6.7 g/dL (6.5-8.0)
[2024-01-11 22:49] LABS: Troponin-I High Sensitivity 5.3 ng/L (<3.5-35.0)
--- NOTE | 2024-01-11 22:52 | PC.NURSE ---
this rn assumed care of pt. pt a&ox4, respirations even and unlabored. vss. pt reports 'burning' chest pain starting 7 hours ago that radiates into left arm. pt received 2 nitro and 324 of aspirin administered by ems with good relief. ems placed 20g in L forearm. pt is on 2L nc at baseline during day, 4L baseline at night. pt noted to have bandage on R big toe. pt states it is from a diabetic ulcer. 18g placed in R forearm, labs obtained. ekg obtained. pt is normal sinus on tele.
[2024-01-11 23:10] LABS: VBG Base Excess 7.2 mmol/L; VBG HCO3 31 mmol/L (22-26); VBG pCO2 44 mmHg; VBG pH 7.46 (7.32-7.43); VBG pO2 79 mmHg
[2024-01-11 23:15] LABS: Lactic Acid 1.4 mmol/L (0.5-2.0)
[2024-01-11 23:17] LABS: Venous Blood Gas Refer to POC result
[2024-01-11 23:21] LABS: B Type Natriuretic Peptide 11 pg/mL (<100)
[2024-01-11 23:39] VITALS: BP 118/51; PULSE 64; RESP 12; TEMP 37.1; O2SAT 100
[2024-01-12 00:56] LABS: Troponin-I High Sensitivity 7.4 ng/L (<3.5-35.0)
[2024-01-12 01:37] VITALS: PULSE 53
[2024-01-12] MEDS: Albuterol/Iprat 2.5/0.5MG 3 ML AMPUL.NEB INHALE (01:57)
[2024-01-12 01:58] VITALS: PULSE 56; RESP 16; O2SAT 99
[2024-01-12] MEDS: Magnesium Hydrox/Alum Hydrox 30 ML ORAL.SUSP PO (02:15)
--- NOTE | 2024-01-12 02:46 | PC.NURSE ---
pt right big toe wrapped with clean, dry gauze. boot placed on right foot.
[2024-01-12 03:06] LABS: Troponin-I High Sensitivity 5.9 ng/L (<3.5-35.0)
[2024-01-12] MEDS: Albuterol Sulfate 90 MCG 8 GM INHALER 2 PUFF INHALE (03:17)
[2024-01-12] MEDS: traMADoL HCL 50 MG TABLET PO (04:13)
[2024-01-12 04:40] VITALS: BP 127/57; PULSE 67; RESP 18; TEMP 36.6; O2SAT 100
[2024-01-12 05:00] VITALS: BP 127/57; PULSE 67; RESP 18; TEMP 36.6; O2SAT 100
== END 2024-01-12 05:00 | disposition home or self-care (01) ==
PROVIDERS: Emergency Provider Student in an Organized Health Care Education/Training Program
DX: S90.414A Abrasion, right lesser toe(s), initial encounter (principal); R07.89 Other chest pain; M79.671 Pain in right foot; R06.02 Shortness of breath; X58.XXXA Exposure to other specified factors, initial encounter; Y93.89 Activity, other specified; Y92.89 Other specified places as the place of occurrence of the external cause; Y99.8 Other external cause status; Z79.899 Other long term (current) drug therapy
CPT/HCPCS: 36415; 71045; 73660; 80053; 82803; 83605; 83880; 84484; 85025; 93005; 94640; 99284; 99285

== ENCOUNTER 2024-01-13 09:38 | Outpatient (AMB) | payer MEDICARE, SELFPAY ==
[2024-01-13 09:39] VITALS: BP 136/78; PULSE 63; O2SAT 97; BMI 31.2
--- NOTE | 2024-01-13 09:39 | MHC.OFFVIS ---
Vital Signs 01/13/24 09:39 Height 5 ft 11 in Weight 223 lb 6 oz BMI 31.2 BP 136/78 Blood Pressure Location Rt brachial Position Sitting Pulse 63 Pulse Source Pulse Oximeter Pulse Oximetry (%) 97 Oxygen Delivery Method Room Air Intake Visit Reasons: COPD Allergies lemon Allergy (Verified 01/13/24 09:44) Anaphylaxis morphine Allergy (Verified 01/13/24 09:44) Anaphylaxis HPI HPI COPD: Details: Russell is a pleasant 78 year old male, current minimal smoker, with 100 pack year history, with underlying COPD on 2L supplemental oxygen, BUTCH noncompliant with CPAP, CHF, HTN, HLD, AAA, GERD, and PVD. He is accompanied by his nephew, ambulating with a walker. He was referred by PCP for pulmonary evaluation. He reports longstanding history of COPD currently managed on albuterol neb/MDI BID with moderate effect. He continues to report dyspnea on exertion and occasional productive cough with white sputum. He was previously on ICS/LABA, unclear why this was discontinued. He does note recently moving from [place] and had to urgently leave residence due to substandard living conditions, no longer has a nebulizer machine. He is currently residing locally with family. He was recently evaluated at [facility] for evaluation due to hypoxia, patient had left prior oxygen supplies in [place], where he resided prior to [place]. CTA performed, report below. He presents today with supplemental oxygen, a concentrator at home, supplies from [facility] [place]. He reports using 2.5-3L at rest and 4 L with exertion. He also notes prior diagnosis of BUTCH, unknown severity, however could not tolerate CPAP therapy and is not interested in reinitiating. He reports father, smoker, with emphysema, otherwise no pertinent family history. He denies any occupational exposures. He denies any seasonal allergies. [facility] Social History Housing: House Patient Tobacco Use Status: Current everyday Tobacco user Cigarettes Per Day: 2 Years Smoked: 50 plus e-Cigarette/Vaping Use: Never Used Second Hand Smoke Exposure: No service: No Current occupational status: retired Cognitive needs: No Hearing needs: Yes Vision needs: Yes Review of Systems Const Denies chills, Denies excessive sweating, Denies fever(s), Denies headache(s) and Denies night sweats Eyes Denies dry eyes, Denies irritation and Denies itchy eyes ENT Reports Normal hearing present, Denies headache(s), Denies nasal congestion, Denies nasal discharge, Denies post nasal drip and Denies sore throat Card Denies chest pain, Denies chest pain at rest, Denies chest pain with activity, Denies claudication, Denies orthopnea and Denies paroxysmal nocturnal dyspnea Resp Denies chest congestion, Denies excessive phlegm production, Denies pain on inspiration, Denies pain with cough, Denies stridor and Denies wheezing Musc Denies myalgias Neuro Reports Normal hearing present and Denies headache(s) Endo Denies excessive sweating Ken/Lymph Denies lymphadenopathy Aller/Immun Denies itchy eyes, Denies seasonal rhinorrhea and Denies wheezing Physical Exam Vital Signs: Last Vital Signs Pulse 63 01/13/24 09:39 BP 136/78 01/13/24 09:39 Pulse Ox 97 01/13/24 09:39 Oxygen Delivery Method Room Air 01/13/24 09:39 BMI result Body Mass Index 31.2 Const General: cooperative, healthy appearing, comfortable, no acute distress, well developed and alert Nutritional Appearance: obese Orientation/consciousness: patient oriented x3 HEENT Head: Yes normal to inspection, Yes normocephalic and Yes atraumatic Ears: hearing grossly normal bilaterally and external ears normal Eyes General: appearance normal, both eyes and all related structures Eyelids: Yes eyelids normal Sclerae: sclerae normal EOM: EOMs intact bilaterally Neck Neck: Yes normal visual inspection and Yes no lymphadenopathy Lymphatic: no lymphadenopathy noted Chest Chest palpation & inspection: normal inspection of the chest Resp Effort & Inspection: normal respiratory effort, able to speak in complete sentences, no audible wheezes, no cough, no stridor, not tachypneic, no tripod positioning and no use of accessory muscles Auscultation: clear to auscultation bilaterally Cardio Jugular venous distension: no JVD Rate: regular rate Rhythm: regular rhythm Skin Other: warm, dry Neuro General: patient oriented x3 Cranial nerves: Yes Normal hearing present Cognition (Neuro): normal cognition Psych Appearance: grossly normal and well kempt Speech and movement: Normal speech and movement present and Clear speech present Affect: normal affect Attitude: cooperative Thought process: Normal thought process present Thought content: Normal thought content present Insight: Good insight present (Psych) Judgement: Good judgement present (Psych) Results Reviewed Results Reviewed: [address] [address] [address] Scan Report Signed Patient: Russell Saeed MR#: [id number] : 1945 Acct:[id number] Age/Sex: 78 / M ADM Date: 12/31/23 Loc: HO.ED Attending Dr: Ordering Physician: Bhaskar Mittal MD Date of Service: 12/31/23 Procedure(s): CT angio chest aorta Accession Number(s): [id number] cc: Physician,Unknown ; Bhaskar Mittal MD~ EXAMINATION: CTA CHEST, ABDOMEN AND PELVIS CLINICAL INFORMATION: History of aneurysm with chest pain. Known AAA COMPARISON: No pertinent prior studies are available for comparison. TECHNIQUE: Multidetector volumetric imaging was performed from the thoracic inlet through the pubic symphysis both before as well as following administration of 100 mL of Omnipaque 350. Sagittal and coronal reformatted images were obtained on the technologist's workstation. Additional 2-D coronal and sagittal reformatted images and axial 3-D maximum intensity projection MIP images are generated on the CT workstation. This CT examination was performed using dose optimization techniques as appropriate, variously including the following: *Automated exposure control *Adjustment of mA and/or kV according to patient size (this includes techniques or standardized protocols for targeted exams where dose is matched to indication/reason for exam; i.e. extremities or head) *Use of iterative reconstruction technique DLP: 1081 mGy-cm VASCULAR FINDINGS: There is a tricuspid aortic valve with calcification of the leaflets. Mild coronary calcium is present. No thoracic aortic aneurysm is seen. Normal three-vessel branching pattern of the arch is present with patent great vessels. There are atherosclerotic changes seen in the transverse arch with some small areas of ulceration. The descending thoracic aorta is nonaneurysmal. Marked atherosclerotic changes are present in the infrarenal aorta which has marked irregular noncalcified plaque. There is aneurysmal dilatation of the infrarenal abdominal aorta with a maximum transverse dimension of around 4.0 cm (7:584). There is aneurysmal dilatation of the right common iliac artery, but not the left. Both internal iliac arteries are patent. External iliac arteries common femoral arteries and proximal profunda femoris and superficial femoral arteries are patent although with mild atherosclerotic disease. The celiac, SMA as well as NOBLE are all patent. There are single renal arteries seen bilaterally. There is a renal artery stenosis on the left present with luminal diameter of less than 3 mm. The left kidney is atrophic compared to the right. Although not carried out for evaluation pulmonary arteries, no pulmonary emboli are seen. NONVASCULAR FINDINGS: CHEST: Lung: There is mild emphysema and bronchial thickening. Bibasilar atelectasis is present. No focal consolidations or lung masses. Mediastinum: No hilar or mediastinal lymphadenopathy. Coronary Artery Calcification: Mild to moderate Pericardium/Pleura: No significant effusion. No pleural mass or thickening. Chest Wall/Axilla: Unremarkable ABDOMEN/PELVIS: Peritoneal Space: No significant free air or free fluid identified. Liver, Gallbladder, Biliary Tree: The liver is mildly prominent at 17 cm in length. No focal masses are seen aside from a single punctate granuloma. Patient status post cholecystectomy with pneumobilia which is often normal. Pancreas: Unremarkable Spleen: Unremarkable Adrenal Glands: There is a 3.2 cm water density mass arising from the lateral limb of the left adrenal gland. This is consistent with a benign adenoma with no need for additional imaging or follow-up Kidneys and Ureters: Left kidney is smaller and slightly atrophic. A benign left upper pole 3.0 cm Bosniak class I renal cyst is noted which requires no additional imaging or follow up. No solid renal masses are seen. The right kidney appears unremarkable. No hydronephrosis. Ureters are nondilated. Bladder: Unremarkable Gastrointestinal Tract: The small and large bowel are unremarkable aside from scattered colonic diverticula without diverticulitis. The appendix is unremarkable. Abdominal Wall: No significant hernia is appreciated. Lymph Nodes: No retroperitoneal lymphadenopathy. PELVIC VISCERA: Mild BPH. Seminal vesicles appear normal. OSSEUS STRUCTURES: Biconvex thoracolumbar scoliosis is present. Marked degenerative changes are seen throughout the spine CT/CT angio chest aorta IMPRESSION: 1. No evidence of aortic dissection. 2. Infrarenal abdominal aortic aneurysm with maximum dimension of 4.0 cm. 3. Left renal artery stenosis with mildly atrophic left kidney. 4. Incidental note made of emphysema, cholecystectomy, benign left adrenal adenoma, colonic diverticulosis, BPH and degenerative changes in the spine. Fleischner guidelines were followed. Electronically signed by: Pacheco Cool MD 12/31/2023 10:58 PM EDT RP Dictated By: Pacheco Cool MD Signed By: <Electronically signed by Pacheco Cool MD in OV> 12/31/23 2258 DD/ 35 TD/TT: 12/31/232214 Medical Record Technician: TED Assessment & Plan Assessment & Plan (1) COPD (chronic obstructive pulmonary disease): Code(s): J44.9 - Chronic obstructive pulmonary disease, unspecified Category: Medical Qualifiers: COPD type: unspecified COPD Qualified Code(s): J44.9 - Chronic obstructive pulmonary disease, unspecified (2) Nicotine dependence, cigarettes, uncomplicated: Code(s): F17.210 - Nicotine dependence, cigarettes, uncomplicated Category: Medical Plan Russell's symptoms are likely multifactorial with pulmonary, cardiac, and deconditioning/obesity etiologies. Will send for PFT to assess severity of COPD. Recent chest CT revealed mild bronchial thickening and emphysema, no concerning nodules noted. Will repeat in one year, as patient continues to smoker. Discussed smoking cessation. He was previously on ICS/LABA and reports suboptimal control on current regimen, will send for triple therapy to optimize respiratory status in addition to albuterol PRN. He is aware to call if issues obtaining. Will also send nebulizer for home use. Will perform 6MWT at next visit. Will send for overnight oximetry on 2.5 L to ensure optimal liter flow for nocturnal use. All questions were answered and patient is in agreement of plan. Will follow up in 4-6 weeks or sooner if needed. Orders: Orders CT chest wo IV con 11 Months F17.210 - Nicotine dependence, cigarettes, uncomplicated PFT pulmonary function test Today J44.9 - Chronic obstructive pulmonary disease, unspecified Overnight Pulse Oximetry Today G47.34 - Idiopathic sleep related nonobstructive alveolar hypoventilation Medications: New [id number]-[id number] 200-62.5-25 mcg (Trelegy Ellipta) 1 inh inhalation DAILY 60 ea 6RF Coding Level of Care Code New Pt Level 4 (83771) Diagnoses Chronic obstructive pulmonary disease, unspecified COPD type J44.9 COPD type: unspecified COPD Nicotine dependence, cigarettes, uncomplicated F17.210
== END 2024-01-13 10:18 | disposition home or self-care (01) ==
PROVIDERS: PCP Internal Medicine; Referring Provider Internal Medicine; Visit Provider Nurse Practitioner Family
DX: J44.9 Chronic obstructive pulmonary disease, unspecified (principal); F17.210 Nicotine dependence, cigarettes, uncomplicated
CPT/HCPCS: 99204

== ENCOUNTER → 2024-01-13 09:38 | Outpatient (BNVA) | payer MEDICARE, SELFPAY | PROVIDERS: PCP Internal Medicine; Referring Provider Internal Medicine; Visit Provider Nurse Practitioner Family | DX: J44.9 Chronic obstructive pulmonary disease, unspecified (principal); F17.210 Nicotine dependence, cigarettes, uncomplicated | CPT/HCPCS: 99202 ==

== ENCOUNTER 2024-02-10 13:25 | Outpatient (AMB) | payer MEDICARE, SELFPAY ==
[2024-02-10 13:41] VITALS: BP 124/72; BMI 31.0
--- NOTE | 2024-02-10 13:41 | A.OFFVIS_ITS ---
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 Hercules for AAA and LE ulcers. Pt states he has an ulcer on his right foot. He is post great toe amputation about 2 years ago in [place]. Pt states his toe is tender to the touch. Pt states he has a visiting nurse that comes and changes the bandage 2x a week. 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 He had originally been seen in [place] had undergone endovascular intervention along with great toe amp of the right lower extremity. Of note he has a prior history of diabetes coronary artery disease Congestive heart failure COPD and chronic back pain. He is O2 dependent on his COPD. In addition he smokes a few cigarettes a day which is down from his previous 2 packs per day. He now presents for vascular evaluation regarding nonhealing right 2nd toe. [facility] Social History Housing: House Patient Tobacco Use Status: Current everyday Tobacco user Cigarettes Per Day: 2 Years Smoked: 50 plus e-Cigarette/Vaping Use: Never Used Second Hand Smoke Exposure: No service: No Current occupational status: retired Cognitive needs: No Hearing needs: Yes Vision needs: Yes Review of Systems Const All systems reviewed & are unremarkable except as noted in HPI and below Reports no additional complaints ENT Reports Normal hearing present Card Denies chest pain, Denies chest pain at rest, Denies chest pain with activity and Denies pedal edema Resp Denies cough GI Denies abdominal pain Musc Denies abnormal gait, Denies muscle cramps and Denies radiating pain into limb Skin/Breast Denies skin ulcer and Denies wounds Neuro Reports Normal hearing present and Denies abnormal gait Psych Reports no additional complaints Physical Exam Vital Signs: Last Vital Signs BP 124/72 02/10/24 13:41 BMI result Body Mass Index 31.0 Const General: cooperative, healthy appearing and comfortable Orientation/consciousness: oriented to person, oriented to place and oriented to time HEENT Head: Yes normal to inspection Neck Neck: Yes normal visual inspection Carotids: no bruits Chest Chest palpation & inspection: normal inspection of the chest Resp Effort & Inspection: normal respiratory effort and able to speak in complete sentences Auscultation: clear to auscultation bilaterally, no crackles, no rales, no rhonchi and no wheezes Cardio Other: Left side palpable DP. Right side DP signal with 2nd toe hammertoe deformity nonhealing ulcer of the toe including the tip of the toe. Tip of the toe appears boggy. Rate: regular rate Rhythm: regular rhythm Heart sounds: S1 normal heart sound present and S2 normal heart sound present Bruits: no carotid bruits Peripheral pulses: Peripheral pulses 2+ throughout GI Inspection: Yes normal to inspection Skin Wounds: no wounds Hair: normal Neuro General: oriented to person, oriented to place and oriented to time Cranial nerves: Yes CN's II-XII intact bilaterally and Yes Normal hearing present Cognition (Neuro): normal cognition Motor exam (neuro): 5/5 motor strength present throughout Extrem Other: venous exam: No significant superficial varicosities or spider telangiectasias, minimal edema General: No clubbing, No cyanosis and No edema Psych Appearance: grossly normal Mental Status: mental status grossly normal Speech and movement: Normal speech and movement present Assessment & Plan Assessment & Plan (1) PAD (peripheral artery disease): Comment: 2021 - right lower extremity angiogram x2 in [place] 2021 - right great toe amputation and [place] Code(s): I73.9 - Peripheral vascular disease, unspecified Category: Medical Plan: In short patient has nonhealing right foot ulcer. I did review the pathophysiology of peripheral vascular disease with the patient. In addition we did discuss routine conservative measures including a healthy diet and the importance of exercise and ambulation. We did discuss risk factor modification. The patient will require noninvasive arterial testing. Thank you for allowing us to participate in this patient's care. If there are any questions or concerns please do not hesitate to contact us. Please note a longitudinal relationship has been created with the patient and we have been following and surveillance this chronic condition. Orders: Orders US arterial duplex LE BI 1 Week I73.9 - Peripheral vascular disease, unspecified Coding Level of Care Code New Pt Level 4 (92838) Complex EM visit Add On G2211 Diagnoses PAD (peripheral artery disease) I73.9
== END 2024-02-10 14:23 | disposition home or self-care (01) ==
PROVIDERS: PCP Internal Medicine; Visit Provider Surgery Vascular Surgery
DX: I73.9 Peripheral vascular disease, unspecified (principal)
CPT/HCPCS: 99204; G2211

== ENCOUNTER → 2024-02-10 13:25 | Outpatient (BNVA) | payer MEDICARE, SELFPAY | PROVIDERS: PCP Internal Medicine; Visit Provider Surgery Vascular Surgery | DX: I73.9 Peripheral vascular disease, unspecified (principal) | CPT/HCPCS: 99202 ==

== ENCOUNTER 2024-02-19 12:54 | Outpatient (REF) | payer MEDICARE, SELFPAY | END 2024-02-19 12:55 | disposition home or self-care (01) | LOC: HO.US 12:54 | PROVIDERS: PCP Internal Medicine; Visit Provider Surgery Vascular Surgery | DX: I73.9 Peripheral vascular disease, unspecified (principal) | CPT/HCPCS: 93922; 93925 ==

== ENCOUNTER 2024-02-27 14:10 | Inpatient (IN) | payer MEDICARE, SELFPAY ==
[2024-02-27] VITALS (7 sets, daily range): BP systolic 62–160; BP diastolic 36–80; PULSE 53–77; RESP 16–20; TEMP 36.3–36.5; O2SAT 91–100; BMI 31.2
--- NOTE | ~2024-02-27 | XR_ITS ---
EXAMINATION: Right tibia-fibula series. Right foot series. CLINICAL INFORMATION: Red warm osteomyelitis cellulitis. COMPARISON: X-ray of the right toes 01/11/2024 TECHNIQUE: AP and lateral views of the right tibia fibula 3 views of the right foot FINDINGS: Right tibia-fibula: The bone and surrounding soft tissues are unremarkable. Right foot: Postoperative changes related to amputation distal to level of the proximal 1st metatarsal. Small bony excrescence extending off the dorsal aspect of the head of the proximal phalanx unchanged compared to prior Small spur extending off the lateral aspect of the distal neck of the 5th metatarsal I do not see soft tissue gas or definite ulceration. XR/XR tibia fibula RT 2V IMPRESSION: Right tibia-fibula: Unremarkable. Right foot: Postoperative changes stable. Small bony excrescence of the head of the 2nd proximal phalanx unchanged. Question age indeterminate fracture Electronically signed by: Maldonado Canchola MD 02/27/2024 04:41 PM EST
--- NOTE | ~2024-02-27 | XR_ITS ---
EXAMINATION: Right tibia-fibula series. Right foot series. CLINICAL INFORMATION: Red warm osteomyelitis cellulitis. COMPARISON: X-ray of the right toes 01/11/2024 TECHNIQUE: AP and lateral views of the right tibia fibula 3 views of the right foot FINDINGS: Right tibia-fibula: The bone and surrounding soft tissues are unremarkable. Right foot: Postoperative changes related to amputation distal to level of the proximal 1st metatarsal. Small bony excrescence extending off the dorsal aspect of the head of the proximal phalanx unchanged compared to prior Small spur extending off the lateral aspect of the distal neck of the 5th metatarsal I do not see soft tissue gas or definite ulceration. XR/XR foot RT 2V IMPRESSION: Right tibia-fibula: Unremarkable. Right foot: Postoperative changes stable. Small bony excrescence of the head of the 2nd proximal phalanx unchanged. Question age indeterminate fracture Electronically signed by: Maldonado Canchola MD 02/27/2024 04:41 PM EST
--- NOTE | 2024-02-27 14:58 | ED.GENADULT ---
HPI - General Adult General Chief complaint: Wound/Laceration Stated complaint: R FOOT INFECTION Time Seen by Provider: 02/27/24 14:45 Source: patient Mode of arrival: ambulatory Limitations: no limitations History of Present Illness ED Provider: Dexter XIAO HPI narrative: 79 yold male with pmh of CHF, pad, BPH, Triple AAA, degenerative disease Presents to ED for right leg foot that is red warm inability to be infected by visiting nurse. Patient did not have states redness and pain 2 days ago. Patient denies any fever or chills. Patient has had stents placed in right leg in the past. Patient denies any calf pain, chest pain, shortness of breath, or recent trauma. Related Data Home Medications ?Medication ?Instructions ?Recorded ?Confirmed atorvastatin 40 mg tablet 40 mg PO DAILY 01/09/24 02/27/24 celecoxib 100 mg capsule 200 mg PO BEDTIME 01/09/24 02/27/24 clopidogrel 75 mg tablet 75 mg PO DAILY 01/09/24 dexlansoprazole 60 mg 60 mg PO DAILY 01/09/24 02/27/24 capsule,biphase delayed release famotidine 20 mg tablet 20 mg PO DAILY 01/09/24 02/27/24 furosemide 40 mg tablet 40 mg PO DAILY 01/09/24 02/27/24 magnesium 250 mg tablet 250 mg PO DAILY 01/09/24 02/27/24 pantoprazole 40 mg tablet,delayed 40 mg PO DAILY@0630 01/09/24 02/27/24 release tamsulosin 0.4 mg capsule 0.8 mg PO DAILY 01/09/24 02/27/24 lisinopril 5 mg tablet 5 mg PO DAILY 02/27/24 02/27/24 Previous Rx's ?Medication ?Instructions ?Recorded Oxygen Home Use #1 ea 12/31/23 albuterol sulfate 90 mcg/actuation 2 puff inhalation Q6H PRN 12/31/23 aerosol inhaler shortness of breath or wheezing #8.5 grams nebulizer accessories #1 ea 12/31/23 cyclobenzaprine 10 mg tablet 10 mg PO BEDTIME PRN muscle spasm 01/09/24 #90 tabs pregabalin 100 mg capsule 100 mg PO BID #180 caps 01/09/24 rivaroxaban 10 mg tablet (Xarelto) 10 mg PO DAILY #90 tabs 01/09/24 fluticasone fur. 200 mcg-umeclid 1 inh inhalation DAILY #60 ea 01/13/24 62.5 mcg-vilant 25 mcg inhalat.powder (Trelegy Ellipta) tramadol 50 mg tablet 50 mg PO Q6H PRN pain #120 tabs 02/16/24 Allergies Allergy/AdvReac Type Severity Reaction Status Date / Time lemon Allergy Anaphylaxis Verified 02/27/24 14:30 morphine Allergy Anaphylaxis Verified 02/27/24 14:30 vancomycin Allergy Chest Pain Verified 02/28/24 02:34 Review of Systems Review of Systems: right leg redness pain Yes all other systems are reviewed and are negative [facility] Social History Social History Household Members: Other Household Members Other:: niece Housing: House Do you presently have visiting nurse or other home services: Yes Patient Tobacco Use Status: Current everyday Tobacco user Cigarettes Per Day: 3 Years Smoked: 50 plus Smoked in Last 30 Days: Yes e-Cigarette/Vaping Use: Never Used Second Hand Smoke Exposure: No Use of substances other than those prescribed or required for medical reasons: No Currently Displaying Signs/Symptoms of Drug Intoxication Withdrawal: No Have you been hit, kicked, punched, or otherwise hurt by someone within the past year? If so, by whom?: No Do you feel safe in your current relationship?: No Current Relationship Is there a partner from a previous relationship who is making you feel unsafe now?: No Are you made to feel afraid or neglected: No Advance Directives: No Advance Directives Information Provided: No Do you have a plan to hurt others: No Plan Recently lost weight without trying: No Eating poorly because of decreased appetite: No Nutrition Risks: No Nutritional Risk service: Yes Current occupational status: retired Cognitive needs: No Hearing needs: Yes Vision needs: Yes Physical Exam ED Vital Signs: Vital Signs - 24 hr 02/27/24 14:27 02/27/24 16:41 02/27/24 16:45 Temperature 97.4 F Pulse Rate 66 74 77 Respiratory Rate 18 18 18 Blood Pressure 109/62 69/42 L 62/36 L Pulse Oximetry 98 91 L 93 Oxygen Delivery Method Nasal Cannula Nasal Cannula Nasal Cannula Oxygen Flow Rate 2 2 02/27/24 17:04 02/27/24 17:35 Temperature Pulse Rate 55 Respiratory Rate 16 Blood Pressure 108/46 L 128/64 Pulse Oximetry 97 Oxygen Delivery Method Nasal Cannula Oxygen Flow Rate 2 BMI result Body Mass Index 31.2 Const General: cooperative, healthy appearing, comfortable, no acute distress, well developed, alert, awake and Physically active Orientation/consciousness: patient oriented x3 [facility] Head: Yes normal to inspection, Yes No palpable skull fracture present, Yes normocephalic and Yes atraumatic Eyes General: appearance normal, both eyes and all related structures Neck Neck: Yes normal visual inspection, Yes full ROM, Yes no lymphadenopathy, Yes no meningeal signs, Yes trachea midline, Yes supple, No anterior neck swelling and No tender Chest Chest palpation & inspection: normal inspection of the chest and normal palpation of entire chest wall Resp Effort & Inspection: normal respiratory effort and able to speak in complete sentences Auscultation: clear to auscultation bilaterally Cardio Jugular venous distension: no JVD Heart sounds: S1 normal heart sound present and S2 normal heart sound present GI Inspection: Yes normal to inspection Palpation (GI): Soft to palpation, not firm, nontender, no guarding and not rigid General: Yes no CVA tenderness Back/Spine/Pelvis Back: no CVA tenderness and No back tenderness Skin General skin exam: no rashes or lesions noted, elasticity normal and turgor normal Neuro Other: positive for warmth and tenderness on exam. Negative for any active drainage. Vascular exam intact neuro exam intact. Motor exam intact but limited due to pain. General: patient oriented x3, gait normal, tone normal, moves all extremities, Normal light touch and pain sensation, no meningeal signs, no focal motor deficits, CN's II-XI intact bilaterally and normal sensation to monofilament Extrem General: Yes normal to inspection, Yes full ROM and Yes capillary refill normal Psych Appearance: grossly normal, well kempt and not disheveled Medications Administered Generic Name Dose Route Start Last Admin Trade Name Freq PRN Reason Stop Dose Admin Acetaminophen 650 mg 02/27/24 19:58 02/28/24 08:37 Acetaminophen 325 Mg Tablet PO 650 mg Q6H PRN Administration Pain, Mild (Pain Scale 1-3), fever or headache Atorvastatin Calcium 40 mg 02/28/24 09:00 02/28/24 08:38 Atorvastatin Calcium 40 Mg Tablet PO 40 mg DAILY JESSICA Administration Clotrimazole 1 appl 02/28/24 10:15 02/28/24 19:33 Clotrimazole 1 % Cream 15 Gm Tube TOPICAL 1 appl BID JESSICA Administration Protocol Cyclobenzaprine HCl 10 mg 02/27/24 20:10 02/28/24 02:09 Cyclobenzaprine Hcl 10 Mg Tablet PO 10 mg BEDTIME PRN Administration muscle spasm Famotidine 20 mg 02/28/24 09:00 02/28/24 08:39 Famotidine 20 Mg Tablet PO 20 mg DAILY JESSICA Administration Fluticasone/Umeclidinium/Vilanterol 1 puff 02/28/24 08:00 02/28/24 08:50 Fluticasone/Umeclidinium/Vilanterol 200/62.5/25 Blst.W.Dev INHALE 1 puff RDAILY JESSICA Administration Furosemide 40 mg 02/28/24 14:30 02/28/24 15:51 Furosemide 40 Mg Tablet PO 40 mg DAILY JESSICA Administration Protocol Doxycycline Hyclate 100 mg/ 250 mls @ 166.67 mls/hr 02/27/24 20:00 02/28/24 19:30 Sodium Chloride IV 166.67 mls/hr Q12H JESSICA Administration Magnesium Oxide 200 mg 02/28/24 09:00 02/28/24 08:38 Magnesium Oxide 400 Mg Tablet PO 200 mg DAILY JESSICA Administration Methylprednisolone Sodium Succinate 60 mg 02/28/24 19:00 02/28/24 19:32 Methylprednisolone Sod Succ 125 Mg/2 Ml Vial IVPUSH 60 mg Q6H JESSICA Administration Pantoprazole Sodium 40 mg 02/28/24 06:30 02/28/24 06:00 Pantoprazole Sodium 20 Mg Tablet.Dr PO 40 mg DAILY@0630 JESSICA Administration Pregabalin 100 mg 02/27/24 21:00 02/28/24 19:32 Pregabalin 100 Mg Capsule PO 100 mg BID JESSICA Administration Rivaroxaban 10 mg 02/28/24 09:00 02/28/24 08:38 Rivaroxaban 10 Mg Tablet PO 10 mg DAILY JESSICA Administration Sodium Chloride 3 ml 02/28/24 00:00 02/28/24 19:33 0.9 % Sodium Chloride Flush 3 Ml Syringe IVFLUSH 3 ml QSHIFT JESSICA Administration Tamsulosin HCl 0.8 mg 02/28/24 09:00 02/28/24 08:37 Tamsulosin Hcl 0.4 Mg Capsule PO 0.8 mg DAILY JESSICA Administration Tramadol HCl 50 mg 02/27/24 20:10 02/28/24 19:32 Tramadol Hcl 50 Mg Tablet PO 50 mg Q6H PRN Administration Pain, Moderate(Pain Scale 4-6) Discontinued Medications Generic Name Dose Route Start Last Admin Trade Name Freq PRN Reason Stop Dose Admin Vancomycin HCl 2,000 mg in 500 mls @ 250 mls/hr 02/27/24 14:57 02/27/24 17:57 Vancomycin/Ns IV 02/27/24 16:56 Infused ONCE ONE Infusion Piperacillin Sod/Tazobactam 50 mls @ 100 mls/hr 02/27/24 14:57 02/27/24 16:24 Sod 3.375 gm/ Sodium Chloride IV 02/27/24 15:26 Infused ONCE ONE Infusion Sodium Chloride 500 mls @ 500 mls/hr 02/27/24 17:00 02/27/24 17:43 Ns IV 02/27/24 17:59 Infused .Q1H JESSICA Infusion Influenza Virus Vaccine 0.5 ml 02/28/24 01:46 02/28/24 02:11 Flu Vacc [id number](6mos Up)/Pf 0.5 Ml Syringe IM 02/28/24 01:47 0.5 ml .ONCE ONE Administration Methylprednisolone Sodium Succinate 125 mg 02/28/24 11:00 02/28/24 11:07 Methylprednisolone Sod Succ 125 Mg/2 Ml Vial IVPUSH 02/28/24 11:01 125 mg ONCE ONE Administration Medical Decision Making Medical Decision Making MDM Narrative: 79-year-old male presents to ED for right leg redness and warmth and tenderness for couple of days. Patient is sent by visiting nurse to rule out infection. Patient has had left big toe amputated. labs xray ordered. Vancyomycin and Zosyn ordered 5:07pm: Patient became hypotensive.. While receiving vanco patient has started complaining of left arm burning and pain and chest pressure with lightheadedness. Vancomycin stopped. Negative for any swelling of the lips, swelling of the uvula, rash, or hypoxia. Blood pressure soft systolic in the 60s twice. EKG BNP troponin and fluids of 500 ml ordered only due to history of CHF. Patient neice then states patient's took 2 dose of tramadol 1 at 12 and another one while being a patient in the ED around 16:00. patient states he took his own meds from his pockets. Patient's transfer immediately to the main ED doctor. Evaluated patient. Antibiotics were ordered before ESR CRP or x-ray results. - I received sign-out from my colleague TRINI Alcala. - patient had a drop in blood pressure while the vancomycin was running. The vancomycin was shut off immediately. Patient did not experience any chest pain or shortness of breath, no angioedema, no wheezing. Patient states that he was very lightheaded but rapidly recovered. Of note, around this time, patient also took 2 doses of tramadol, which patient brought from home. - Patient's blood pressure increased back to normal limits. I do not believe that the patient is septic. Blood pressure dropped likely secondary to medication overdose versus side effect to the vancomycin. Patient already received Zosyn. - Patient recovered uneventfully, no only complaining of localized pain in his right foot. - I discussed the patient with our hospitalist, patient being admitted Differential Diagnosis Differential Diagnoses: The differential diagnosis associated with the presentation includes (Cellulitis, osteomyelitis,) Lab Data 02/27/24 15:31 02/27/24 15:31 Labs: Lab Results 02/27/24 02/27/24 Range/Units 15:31 17:04 WBC 9.4 (4.8-10.8) X10*3/uL RBC 4.20 L (4.60-5.80) X10*6/uL Hgb 12.8 L (14.0-18.0) g/dl Hct 37.9 L (42.0-52.0) % MCV 90.2 (80.0-98.0) fL MCH 30.5 (27.0-33.0) pg MCHC 33.8 (31.0-36.0) g/dl RDW 13.2 (11.0-16.0) % Plt Count 184 (160-400) X10*3/uL MPV 11.0 (9.4-12.4) fL Immature Gran % (Auto) 0.4 (0.0-0.4) % Neut % (Auto) 63.3 (45-73) % Lymph % (Auto) 19.0 L (20-40) % [place] % (Auto) 8.6 (2-11) % Eos % (Auto) 8.0 H (0-4) % Baso % (Auto) 0.7 (0-2) % Lymph # (Auto) 1.8 (1.2-4.9) X10*3/uL [place] # (Auto) 0.8 (0.1-1.2) X10*3/uL Eos # (Auto) 0.8 H (0.0-0.4) X10*3/uL Baso # (Auto) 0.1 (0.0-0.2) X10*3/uL Abs Immat Gran (auto) 0.04 H (0.00-0.03) X10*3/uL Absolute Neuts (auto) 5.9 (2.0-8.3) x10*3/uL Absolute Nucleated RBC 0.000 (0.0-0.012) X10*3/uL Nucleated RBC % (auto) 0.0 (0.0-0.2) /100WBC ESR 14 (0-15) MM/HR PT 16.2 H (10.9-12.4) SEC INR 1.4 H (0.9-1.1) APTT 39.2 H (26.0-36.8) SEC Sodium 142 (135-145) mmol/L Potassium 3.8 (3.3-5.1) mmol/L Chloride 103 (96-108) mmol/L Carbon Dioxide 30 H (22-29) mmol/L Anion Gap 13 (12-20) BUN 21 H (9-16) mg/dL Creatinine 1.23 (0.5-1.4) mg/dL Estim Creat Clear Calc 59.1 Estimated GFR 57 Random Glucose 102 (60-115) mg/dL Lactic Acid 1.1 (0.5-2.0) mmol/L Calcium 8.6 (8.4-10.2) mg/dL Total Bilirubin 0.3 (0.0-1.0) mg/dL AST 33 (5-37) U/L ALT 28 (0-40) U/L Alkaline Phosphatase 108 (39-117) U/L Troponin I High Sens < 2.7 D (<3.5-35.0) ng/L C-Reactive Protein 0.73 H (< or = 0.50) mg/dL B-Natriuretic Peptide < 10 (<100) pg/mL Total Protein 6.4 L (6.5-8.0) g/dL Albumin 3.4 L (3.5-5.0) g/dL Critical Care Time Critical Care Time Critical Care Time: Yes Total Critical Care Time: 60 Attestation: I have personally provided critical care time. Time includes review of lab data, radiology results, discussion with consultants, and monitoring for potential decompensation. Intervention performed as documented. Discharge Plan Discharge Clinical Impression: Cellulitis of foot Patient Disposition: Admitted As Inpatient Interventions: Admission Worksheet (ED) Last Done: 02/28/24 00:14 Discharge Date/Time: 02/28/24 01:13
[2024-02-27 15:38] LABS: MANUAL DIFF FLAG NO
[2024-02-27 15:39] LABS: Basophils Absolute Auto 0.1 X10*3/uL (0.0-0.2); Basophils Percent Auto 0.7 % (0-2); Eosinophils Absolute Auto 0.8 X10*3/uL (0.0-0.4); Hematocrit 37.9 % (42.0-52.0); Hemoglobin 12.8 g/dl (14.0-18.0); Imm Gran Abs Auto 0.04 X10*3/uL (0.00-0.03); Imm Gran Pct Auto 0.4 % (0.0-0.4); Lymphocytes Absolute Auto 1.8 X10*3/uL (1.2-4.9); Mean Corpuscular HGB Conc 33.8 g/dl (31.0-36.0); Mean Corpuscular Hemoglobin 30.5 pg (27.0-33.0); Mean Corpuscular Volume 90.2 fL (80.0-98.0); Monocytes Absolute Auto 0.8 X10*3/uL (0.1-1.2); Monocytes Percent Auto 8.6 % (2-11); Neutrophils Absolute Auto 5.9 x10*3/uL (2.0-8.3); Neutrophils Percent Auto 63.3 % (45-73); Platelet Count 184 X10*3/uL (160-400); Red Cell Distribution Width 13.2 % (11.0-16.0); White Blood Count 9.4 X10*3/uL (4.8-10.8)
[2024-02-27] MEDS: Piperacillin Sodium/Tazobactam 3.375 GM in 0.9 % Sodium Chloride 50 ML IV (15:47)
[2024-02-27 15:52] LABS: Lactic Acid 1.1 mmol/L (0.5-2.0)
[2024-02-27 15:59] LABS: Albumin Level 3.4 g/dL (3.5-5.0); Anion Gap 13 (12-20); Aspartate Amino Transferase 33 U/L (5-37); Bilirubin Total 0.3 mg/dL (0.0-1.0); Blood Urea Nitrogen 21 mg/dL (9-16); C Reactive Protein 0.73 mg/dL (< or = 0.50); Calcium 8.6 mg/dL (8.4-10.2); Carbon Dioxide 30 mmol/L (22-29); Chloride 103 mmol/L (96-108); Creatinine Clr Calc Pharmacy 59.1; Estimated Glomerular Filt Rate 57; Glucose Random 102 mg/dL (60-115); Potassium 3.8 mmol/L (3.3-5.1); Sodium 142 mmol/L (135-145); Total Protein 6.4 g/dL (6.5-8.0)
[2024-02-27 16:19] LABS: Erythrocyte Sedimentation Rate 14 MM/HR (0-15)
[2024-02-27] MEDS: vancomycin/NS 2,000 MG/500 ML PLAST..BAG 250 MG IV (16:24)
[2024-02-27 16:28] LABS: Alanine Aminotransferase 28 U/L (0-40); Alkaline Phosphatase 108 U/L (39-117)
[2024-02-27 16:41] LABS: INTERNATIONAL NORM RATIO 1.4 (0.9-1.1); Prothrombin Time 16.2 SEC (10.9-12.4)
--- NOTE | 2024-02-27 16:43 | ECG_ITS ---
Test Reason : CP Blood Pressure : / mmHG Vent. Rate : 075 BPM Atrial Rate : 075 BPM P-R Int : 202 ms QRS Dur : 122 ms QT Int : 428 ms P-R-T Axes : 071 -48 006 degrees QTc Int : 477 ms Normal sinus rhythm Left anterior fascicular block Abnormal ECG When compared with ECG of 11-JAN-2024 22:02, Right bundle branch block is no longer Present Referred By: Dexter Alcala Electronically Signed By:DMITRY HUDDLESTON
[2024-02-27 16:44] LABS: Partial Thromboplastin Time 39.2 SEC (26.0-36.8)
--- NOTE | 2024-02-27 16:44 | PC.NURSE ---
pt c/o burning senstaion after started vanco. BP low 69/42, c/o dizziness. Dexter FELIZ at bedside. stat EKG ordered
[2024-02-27] MEDS: 0.9 % Sodium Chloride 500 ML IV (16:56)
--- NOTE | 2024-02-27 17:08 | PC.NURSE ---
PT C/O chest pressure, warmth spreading from R arm across chest. pt endorses dizziness and lightheaded, decreased responsiveness - requires prompting. also c/o difficulty breathing. pts family at bedside reports that pt took a pill from his pocket at 1600 - pt reports it was his home Tramadol
--- NOTE | 2024-02-27 17:10 | PC.NURSE ---
report given to Sita and moved pt to ED 5
[2024-02-27 17:29] LABS: B Type Natriuretic Peptide < 10 pg/mL (<100); Troponin-I High Sensitivity < 2.7 ng/L (<3.5-35.0)
--- NOTE | 2024-02-27 17:40 | ECG_ITS ---
Test Reason : chest pain Blood Pressure : / mmHG Vent. Rate : 052 BPM Atrial Rate : 000 BPM P-R Int : 000 ms QRS Dur : 132 ms QT Int : 460 ms P-R-T Axes : 000 -36 -08 degrees QTc Int : 427 ms Normal sinus rhythm Premature atrial complexes Premature ventricular complexes Left axis deviation Right bundle branch block Abnormal ECG When compared with ECG of 27-FEB-2024 16:38, No significant changes seen Referred By: Harriet Barkley Electronically Signed By:DMITRY HUDDLESTON
[2024-02-27] MEDS: Doxycycline Hyclate 100 MG in 0.9 % Sodium Chloride 250 ML 166.67 MG IV (19:32)
--- NOTE | 2024-02-27 19:42 | PHA.MEDREC ---
Pharmacy Consult ? Medication Reconciliation Pharmacy has completed the medication reconciliation. Spoke to patient to confirm med list. Patient states he is on both Clopidogrel 75 mg and Xarelto 10 mg, Last fill date 01/22/24 for 90 days, however there are no claim history for Clopidogrel 75 mg. patient states he fills them through [facility] [employer]. called [employer] and [facility] and they confirmed no claims for Clopidogrel. left unconfirmed on med rec and will notify the dr. Patient also states he takes Atorvastatin 40 mg , Flexril 10 mg, Furosemide 20 mg, and Tamsulosin , however no claim history. patients list has Lisinopril 10 mg daily, however claims has 5 mg daily.
--- NOTE | 2024-02-27 20:19 | P.HPHOSP_ITS ---
History of Present Illness Date of Service: 02/27/24 Attending physician on admission: [facility] Chief Complaint: Right foot redness and pain Pt is a 79-year-old male with a PMH significant for?CHF, COPD chronically on 2L home O2, peripheral artery disease s/p right great toe amputation, AAA, paroxysmal AFib on Xarelto, HTN, peripheral neuropathy, BPH, current smoker and GERD who presents to the ED with right foot swelling, redness, and pain x2 days. Patient is status post right great toe amputation over 1 year ago in [place]. Subsequently developed nonhealing ulcer on right 2nd digit. Is seen by VNA services twice a week who change his dressing. Has not yet established with Wound Care though has upcoming appointment. States approximately 3 days ago patient experienced sudden onset of redness, swelling, pain, and scaling of his skin. Was seen by VNA services today who suggested he come to the ED for further evaluation due to concern for foot infection. Patient otherwise had no acute medical complaints at brought him in. Of note, while patient was being treated in the ED with vancomycin, patient had a sudden onset episode where he felt that his arms and chest were ?on fire? and felt a tightness and heaviness in his chest. Also felt lightheaded, dizzy, and like he was going to pass out. Patient was noted to suddenly become hypotensive as low as 62/36. Vancomycin was stopped with quick improvement in patient's blood pressure which returned to normal. Patient was then administered 500 cc of IVF. Currently patient complains of continue chest tightness, but no other symptoms. Denies nausea, vomiting, abdominal pain. No fever, chills. Denies lightheadedness or dizziness. In the ED pt was hypotensive as low as 62/36, vitals otherwise stable and WNL. Labs were grossly unremarkable and around baseline for patient. No leukocytosis. Stable H&H. ESR WNL at 14. CRP mildly elevated at 0.73. Troponin negative. BNP negative. No significant electrolyte abnormalities. Renal and hepatic function WNL. X-ray of right foot without evidence of osteomyelitis.. X-ray of right tibia and fibula unremarkable. Initial EKG demonstrated normal sinus rhythm without evidence of significant ST elevations or depressions. Repeat EKG showed atrial fibrillation with slow ventricular response and PVCs. Pt was treated with IVF, Zosyn, and doxycycline. Pt will be admitted to the hospital for treatment and further evaluation of left leg cellulitis in the setting of chronic right foot ulcer. Review of Systems 2 Review of Systems: Negative except for that which is stated in the [facility] Social History Housing: House Patient Tobacco Use Status: Current everyday Tobacco user Cigarettes Per Day: 2 Years Smoked: 50 plus Smoked in Last 30 Days: Yes e-Cigarette/Vaping Use: Never Used Second Hand Smoke Exposure: No Use of substances other than those prescribed or required for medical reasons: No Advance Directives: No Advance Directives Information Provided: No Do you have a plan to hurt others: No Plan service: No Current occupational status: retired Cognitive needs: No Hearing needs: Yes Vision needs: Yes Meds Allergies Allergy/AdvReac Type Severity Reaction Status Date / Time lemon Allergy Anaphylaxis Verified 02/27/24 14:30 morphine Allergy Anaphylaxis Verified 02/27/24 14:30 Active Medications: Current Medications Acetaminophen (Acetaminophen 325 Mg Tablet) 650 mg PO Q6H PRN PRN Reason: Pain, Mild (Pain Scale 1-3), fever or headache Benzonatate (Benzonatate 100 Mg Capsule) 100 mg PO TID PRN PRN Reason: Cough Calcium Carbonate (Calcium Carbonate 750 Mg Tab.Chew) 750 mg PO Q4H PRN PRN Reason: Heartburn Doxycycline Hyclate 100 mg/ (Sodium Chloride) 250 mls @ 166.67 mls/hr IV Q12H [facility] Last Admin: 02/27/24 19:32 Dose: 166.67 mls/hr Magnesium Hydroxide (Milk Of Magnesia 30 Ml Oral.Susp) 30 ml PO DAILY PRN PRN Reason: Constipation Melatonin (Melatonin 3 Mg Tablet) 6 mg PO BEDTIME PRN PRN Reason: Insomnia Nicotine (Nicotine 14 Mg Patch.Td24) 14 mg TRANSDERMA DAILY PRN PRN Reason: Nicotine Cravings Ondansetron HCl (Ondansetron Hcl 4 Mg/2 Ml Vial) 4 mg IVPUSH Q8H PRN PRN Reason: Nausea and Vomiting Pharmacy Consult (Consult Rx Vancomycin Dosing) 1 each MISCELLANE DAILY PRN PRN Reason: Consult order Sodium Chloride (0.9 % Sodium Chloride Flush 3 Ml Syringe) 3 ml IVFLUSH [facility] Home Medications ?Medication ?Instructions ?Recorded ?Confirmed ?Last Taken ?Type atorvastatin 40 mg tablet 40 mg PO DAILY 01/09/24 02/27/24 02/27/24 12:00 History celecoxib 100 mg capsule 200 mg PO BEDTIME 01/09/24 02/27/24 02/27/24 12:00 History clopidogrel 75 mg tablet 75 mg PO DAILY 01/09/24 Unknown History dexlansoprazole 60 mg 60 mg PO DAILY 01/09/24 02/27/24 02/27/24 12:00 History capsule,biphase delayed release famotidine 20 mg tablet 20 mg PO DAILY 01/09/24 02/27/24 02/27/24 12:00 History furosemide 40 mg tablet 40 mg PO DAILY 01/09/24 02/27/24 02/27/24 12:00 History magnesium 250 mg tablet 250 mg PO DAILY 01/09/24 02/27/24 02/27/24 12:00 History pantoprazole 40 mg tablet,delayed 40 mg PO DAILY@0630 01/09/24 02/27/24 02/27/24 12:00 History release tamsulosin 0.4 mg capsule 0.8 mg PO DAILY 01/09/24 02/27/24 02/27/24 12:00 History lisinopril 5 mg tablet 5 mg PO DAILY 02/27/24 02/27/24 02/27/24 12:00 History Physical Exam 2 Vital Signs and Narrative: Vital Signs: Last Vital Signs Temp 97.4 F 02/27/24 14:27 Pulse 53 02/27/24 18:11 Resp 20 02/27/24 18:11 BP 133/52 L 02/27/24 18:11 Pulse Ox 100 02/27/24 18:11 O2 Del Method Room Air 02/27/24 18:11 O2 Flow Rate 2 02/27/24 18:11 Oxygen Flow Rate 2 02/27/24 14:27 BMI result Body Mass Index 31.2 General: AOx3, no acute distress Resp: CTA bilaterally CVS: Irregularly irregular rhythm GI: +BS, NT, no distention Skin: Warm, dry Neuro: Cranial nerves II-XII grossly intact bilaterally. Motor grossly intact bilaterally Extremities: Right leg s/p great toe amputation. Right lower extremity with swelling, redness, warmth, chronic 2nd toe wound, and skin desquamation as pictured below Psych: Appropriate affect Results Labs 02/27/24 15:31 02/27/24 15:31 Labs: Laboratory Results - last 24 hr 02/27/24 02/27/24 15:31 17:04 MCV 90.2 MCH 30.5 MCHC 33.8 RDW 13.2 Plt Count 184 MPV 11.0 Immature Gran % (Auto) 0.4 Neut % (Auto) 63.3 Lymph % (Auto) 19.0 L [place] % (Auto) 8.6 Eos % (Auto) 8.0 H Baso % (Auto) 0.7 Lymph # (Auto) 1.8 [place] # (Auto) 0.8 Eos # (Auto) 0.8 H Baso # (Auto) 0.1 Abs Immat Gran (auto) 0.04 H Absolute Neuts (auto) 5.9 Absolute Nucleated RBC 0.000 Nucleated RBC % (auto) 0.0 ESR 14 PT 16.2 H INR 1.4 H APTT 39.2 H Anion Gap 13 Estim Creat Clear Calc 59.1 Estimated GFR 57 Random Glucose 102 Lactic Acid 1.1 Calcium 8.6 Total Bilirubin 0.3 AST 33 ALT 28 Alkaline Phosphatase 108 Troponin I High Sens < 2.7 D C-Reactive Protein 0.73 H B-Natriuretic Peptide < 10 Total Protein 6.4 L Albumin 3.4 L Imaging Radiologist's Impressions: Impressions Tibia/Fibula X-Ray 02/27/24 14:53 IMPRESSION: Right tibia-fibula: Unremarkable. Right foot: Postoperative changes stable. Small bony excrescence of the head of the 2nd proximal phalanx unchanged. Question age indeterminate fracture Electronically signed by: Maldonado Canchola MD 02/27/2024 04:41 PM EST RP Foot X-Ray 02/27/24 15:10 IMPRESSION: Right tibia-fibula: Unremarkable. Right foot: Postoperative changes stable. Small bony excrescence of the head of the 2nd proximal phalanx unchanged. Question age indeterminate fracture Electronically signed by: Maldonado Canchola MD 02/27/2024 04:41 PM EST RP Assessment and Plan (1) Cellulitis of foot: Status: Acute Plan Pt is a 79-year-old male with a PMH significant for?CHF, COPD chronically on 2L home O2, peripheral artery disease s/p right great toe amputation, AAA, paroxysmal AFib on Xarelto, HTN, peripheral neuropathy, BPH, current smoker and GERD who presents to the ED with right foot swelling, redness, and pain x2 days. Pt will be admitted to the hospital for treatment and further evaluation of right leg cellulitis in the setting of chronic right foot ulcer. Right leg cellulitis In the setting of chronic right foot ulcer secondary to peripheral artery disease Patient with left warmth, redness, pain, desquamation x3 days Little concern for osteomyelitis at this time: X-ray negative, ESR and CRP unremarkable No sepsis: No tachycardic, tachypnea, fever, leukocytosis Will treat with doxycycline, started 02/27/2024 Hypotension Patient with symptomatic episode of hypotension as low as 62/36 shortly after starting vancomycin BP improved after stopping vancomycin Hold antihypertensives, resume as warranted Monitor BP Peripheral neuropathy Continue pregabalin Paroxysmal AFib Continue Xarelto CHF unspecified Not in acute exacerbation Hold furosemide due to hypotension HLD Continue statin Peripheral vascular disease Pharmacy has not yet been able to verify prescription for Plavix Continue if verified BPH Hold tamsulosin due to episode of hypotension Resume as warranted Full Code Attending:?Dr. Diane DVT Prophylaxis: On Xarelto Given the extent of pt's cellulitis as well as episode of significant hypotension in the ED, patient will pt will require a hospitalization of at least two nights for treatment of?right leg cellulitis in the setting of chronic right foot ulcer with IV antibiotics. Quality Stroke Does the patient have a stroke diagnosis?: No VTE Prior VTE?: No VTE Risk Level:: Medical - moderate - high VTE Device Contraindication: Treatment Not Indicated VTE Drug Contraindication: N/A - Med Ordered
[2024-02-27] MEDS: Pregabalin 100 MG CAPSULE PO (21:37)
[2024-02-27] MEDS: traMADoL HCL 50 MG TABLET PO (21:42)
--- NOTE | 2024-02-28 00:14 | PC.NURSE ---
RN to RN report given to Mayte. Preparing for admission to room 384.
--- NOTE | 2024-02-28 00:46 | PC.NURSE ---
RN to RN report given to Mayte. Plan for admission to [facility]. Spoke with TRINI Daley regarding canceling future Vancomycin orders due to previous reaction (see previous RN notes) and inquired regarding cardiac monitoring/telemetry orders. TRINI Daley to cancel Vancomycin orders and enter cardiac monitoring orders/parameters. Floor RN notified regarding order changes.
[2024-02-28 01:37] VITALS: BP 166/78; PULSE 62; RESP 18; TEMP 36.4; O2SAT 98
[2024-02-28] MEDS: Cyclobenzaprine HCl 10 MG TABLET PO (02:09)
[2024-02-28] MEDS: 0.9 % Sodium Chloride Flush 3 ML SYRINGE IVFLUSH ×4 (02:10→19:33)
[2024-02-28] MEDS: Flu Vacc TS2024-25(6mos up)/PF 0.5 ML SYRINGE IM (02:11)
[2024-02-28] MEDS: traMADoL HCL 50 MG TABLET PO ×3 (03:47→19:32)
[2024-02-28 03:49] VITALS: BP 147/69; PULSE 61; RESP 18; TEMP 36.4; O2SAT 100
[2024-02-28] MEDS: Pantoprazole Sodium 20 MG TABLET.DR 40 MG PO (06:00)
[2024-02-28 07:26] VITALS: BP 167/74; PULSE 57; RESP 18; TEMP 35.9; O2SAT 100
[2024-02-28] MEDS: Acetaminophen 325 MG TABLET 650 MG PO (08:37)
[2024-02-28] MEDS: Tamsulosin HCL 0.4 MG CAPSULE 0.8 MG PO (08:37)
[2024-02-28] MEDS: Rivaroxaban 10 MG TABLET PO (08:38)
[2024-02-28] MEDS: Magnesium Oxide 400 MG TABLET 200 MG PO (08:38)
[2024-02-28] MEDS: Atorvastatin Calcium 40 MG TABLET PO (08:38)
[2024-02-28] MEDS: Famotidine 20 MG TABLET PO (08:39)
[2024-02-28] MEDS: Doxycycline Hyclate 100 MG in 0.9 % Sodium Chloride 250 ML 166.67 MG IV ×2 (08:48→19:30)
[2024-02-28] MEDS: Fluticasone/Umeclidinium/Vilanterol 200/62.5/25 BLST.W.DEV 1 PUFF INHALE (08:50)
[2024-02-28 08:53] VITALS: PULSE 76; RESP 18; O2SAT 99
[2024-02-28] MEDS: methylPREDNISolone Sod Succ 125 MG/2 ML VIAL IVPUSH (11:07)
--- NOTE | 2024-02-28 11:11 | MHC.CM.PN ---
PT REPORTS HE LIVES WITH HIS NIECE AND IS INDEPENDENT WITH CARE HE IS ACTIVE WITH A VNA, BUT DOES NOT KNOW THE NAME OF THE AGENCY, AND MOW HE USES BOTH A CANE AND A WALKER PCP: APRIL MURRAY PT WILL CONSIDER COMPLETING A HCP IMM DELIVERED DCP: HOME RESUME VNA AND MOW NIECE VS BLS TRANSPORT PENDING RECOVERY CM SPOKE TO PTS NIECE, DUDLEY [phone] WHO REPORTS [facility]
[2024-02-28] MEDS: Pregabalin 100 MG CAPSULE PO ×2 (12:21→19:32)
[2024-02-28] MEDS: Clotrimazole 1 % Cream 15 GM TUBE 1 APPL TOPICAL ×2 (12:22→19:33)
--- NOTE | 2024-02-28 14:21 | HO.PM.IMPN ---
Subjective Subjective Date of Service: 02/28/24 Interval History: States foot feels somewhat better this a.m.. No acute issues overnight Review of Systems Denies chest pain Denies shortness of breath Denies nausea vomiting diarrhea Denies fever chills Physical Exam Vital Signs: Vital Signs: Last Vital Signs Temp 96.6 F L 02/28/24 07:26 Pulse 76 02/28/24 08:53 Resp 18 02/28/24 08:53 BP 167/74 H 02/28/24 07:26 Pulse Ox 100 02/28/24 07:26 O2 Del Method Nasal Cannula 02/28/24 07:26 O2 Flow Rate 2 02/28/24 07:26 Oxygen Flow Rate 2 02/27/24 14:27 BMI result Body Mass Index 31.2 Const: Other: Awake alert oriented x3 no acute distress Resp: Other: Clear to auscultation bilaterally no rales rhonchi or wheezes Cardio: Other: No S4; positive S1-S2; no S3 murmurs rubs or gallops GI: Other: Soft nontender nondistended normoactive bowel sounds Skin: General skin exam: no rashes or lesions noted, elasticity normal and turgor normal Extrem: Other: Erythema right foot essentially unchanged no edema bilaterally Objective Data Active Medications Acetaminophen (Acetaminophen 325 Mg Tablet) 650 mg PO Q6H PRN PRN Reason: Pain, Mild (Pain Scale 1-3), fever or headache Last Admin: 02/28/24 08:37 Dose: 650 mg Documented By: YURIY Albuterol Sulfate (Albuterol Sulfate 90 Mcg 8 Gm Inhaler) 2 puff INHALE Q6H PRN PRN Reason: shortness of breath or wheezing Atorvastatin Calcium (Atorvastatin Calcium 40 Mg Tablet) 40 mg PO DAILY [facility] Last Admin: 02/28/24 08:38 Dose: 40 mg Documented By: YURIY Benzonatate (Benzonatate 100 Mg Capsule) 100 mg PO TID PRN PRN Reason: Cough Calcium Carbonate (Calcium Carbonate 750 Mg Tab.Chew) 750 mg PO Q4H PRN PRN Reason: Heartburn Clotrimazole (Clotrimazole 1 % Cream 15 Gm Tube) 1 appl TOPICAL BID [facility]; Protocol Last Admin: 02/28/24 12:22 Dose: 1 appl Documented By: YURIY Cyclobenzaprine HCl (Cyclobenzaprine Hcl 10 Mg Tablet) 10 mg PO BEDTIME PRN PRN Reason: muscle spasm Last Admin: 02/28/24 02:09 Dose: 10 mg Documented By: CHINEDU Famotidine (Famotidine 20 Mg Tablet) 20 mg PO DAILY [facility] Last Admin: 02/28/24 08:39 Dose: 20 mg Documented By: YURIY Fluticasone/Umeclidinium/Vilanterol (Fluticasone/Umeclidinium/Vilanterol 200/62.5/25 Blst.W.Dev) 1 puff INHALE RDAILY [facility] Last Admin: 02/28/24 08:50 Dose: 1 puff Documented By: ZOE Doxycycline Hyclate 100 mg/ (Sodium Chloride) 250 mls @ 166.67 mls/hr IV Q12H [facility] Last Infusion: 02/28/24 10:18 Dose: Infused Documented By: YURIY Magnesium Hydroxide (Milk Of Magnesia 30 Ml Oral.Susp) 30 ml PO DAILY PRN PRN Reason: Constipation Magnesium Oxide (Magnesium Oxide 400 Mg Tablet) 200 mg PO DAILY [facility] Last Admin: 02/28/24 08:38 Dose: 200 mg Documented By: YURIY Melatonin (Melatonin 3 Mg Tablet) 6 mg PO BEDTIME PRN PRN Reason: Insomnia Methylprednisolone Sodium Succinate (Methylprednisolone Sod Succ 125 Mg/2 Ml Vial) 60 mg IVPUSH Q6H [facility] Nicotine (Nicotine 14 Mg Patch.Td24) 14 mg TRANSDERMA DAILY PRN PRN Reason: Nicotine Cravings Ondansetron HCl (Ondansetron Hcl 4 Mg/2 Ml Vial) 4 mg IVPUSH Q8H PRN PRN Reason: Nausea and Vomiting Pantoprazole Sodium (Pantoprazole Sodium 20 Mg Tablet.Dr) 40 mg PO DAILY@0630 [facility] Last Admin: 02/28/24 06:00 Dose: 40 mg Documented By: CASTILMaco Pregabalin (Pregabalin 100 Mg Capsule) 100 mg PO BID [facility] Last Admin: 02/28/24 12:21 Dose: 100 mg Documented By: YURIY Comments: med had to be brought up by pharmacy Rivaroxaban (Rivaroxaban 10 Mg Tablet) 10 mg PO DAILY [facility] Last Admin: 02/28/24 08:38 Dose: 10 mg Documented By: YURIY Sodium Chloride (0.9 % Sodium Chloride Flush 3 Ml Syringe) 3 ml IVFLUSH QSHIFT [facility] Last Admin: 02/28/24 08:41 Dose: 3 ml Documented By: YURIY Tamsulosin HCl (Tamsulosin Hcl 0.4 Mg Capsule) 0.8 mg PO DAILY [facility] Last Admin: 02/28/24 08:37 Dose: 0.8 mg Documented By: YURIY Tramadol HCl (Tramadol Hcl 50 Mg Tablet) 50 mg PO Q6H PRN PRN Reason: Pain, Moderate(Pain Scale 4-6) Last Admin: 02/28/24 11:06 Dose: 50 mg Documented By: YURIY Labs 02/27/24 15:31 02/27/24 15:31 Labs: Laboratory Results - last 24 hr 02/27/24 02/27/24 15:31 17:04 MCV 90.2 MCH 30.5 MCHC 33.8 RDW 13.2 Plt Count 184 MPV 11.0 Immature Gran % (Auto) 0.4 Neut % (Auto) 63.3 Lymph % (Auto) 19.0 L [place] % (Auto) 8.6 Eos % (Auto) 8.0 H Baso % (Auto) 0.7 Lymph # (Auto) 1.8 [place] # (Auto) 0.8 Eos # (Auto) 0.8 H Baso # (Auto) 0.1 Abs Immat Gran (auto) 0.04 H Absolute Neuts (auto) 5.9 Absolute Nucleated RBC 0.000 Nucleated RBC % (auto) 0.0 ESR 14 PT 16.2 H INR 1.4 H APTT 39.2 H Anion Gap 13 Estim Creat Clear Calc 59.1 Estimated GFR 57 Random Glucose 102 Lactic Acid 1.1 Calcium 8.6 Total Bilirubin 0.3 AST 33 ALT 28 Alkaline Phosphatase 108 Troponin I High Sens < 2.7 D C-Reactive Protein 0.73 H B-Natriuretic Peptide < 10 Total Protein 6.4 L Albumin 3.4 L Assessment and Plan (1) Cellulitis of foot: Status: Acute (2) Hypertension: Status: Acute Plan Pt is a 79-year-old male with a PMH significant for?CHF, COPD chronically on 2L home O2, peripheral artery disease s/p right great toe amputation, AAA, paroxysmal AFib on Xarelto, HTN, peripheral neuropathy, BPH, current smoker and GERD who presents to the ED with right foot swelling, redness, and pain x2 days. Pt will be admitted to the hospital for treatment and further evaluation of right leg cellulitis in the setting of chronic right foot ulcer. 1.Right leg cellulitis (component of eczematous dermatitis) -doxycycline (1) -pulse dose methylprednisolone -clotrimazole cream in between toes 2. Hypertension (relative hypotension on admission) -acceptable control at this point -adjust/add back therapies as clinically indicated 3.Paroxysmal AFib -rate control acceptable -continue Xarelto -adjust therapies as indicated 4. HFpEF -stable and well compensated -resume Lasix now that normotensive Full Code Xarelto Requires ongoing hospitalization to treat cellulitis with IV antibiotics. High risk for outpatient failure Quality Stroke Does the patient have a stroke diagnosis?: No VTE Prior VTE?: No VTE Risk Level:: Medical - moderate - high VTE Device Contraindication: Treatment Not Indicated VTE Drug Contraindication: N/A - Med Ordered
[2024-02-28 15:14] VITALS: BP 138/68; PULSE 66; RESP 16; TEMP 36.4; O2SAT 98
[2024-02-28] MEDS: Furosemide 40 MG TABLET PO (15:51)
[2024-02-28 16:38] LABS: Vancomycin Random < 2.0 mcg/mL (15-20)
[2024-02-28 19:31] VITALS: BP 112/73; PULSE 86; RESP 16; TEMP 36.4; O2SAT 96
[2024-02-28] MEDS: methylPREDNISolone Sod Succ 125 MG/2 ML VIAL 60 MG IVPUSH (19:32)
[2024-02-29] VITALS (7 sets, daily range): BP systolic 120–158; BP diastolic 58–70; PULSE 65–78; RESP 16–18; TEMP 36–36.3; O2SAT 96–100
[2024-02-29] MEDS: Acetaminophen 325 MG TABLET 650 MG PO ×3 (00:35→22:27)
[2024-02-29] MEDS: methylPREDNISolone Sod Succ 125 MG/2 ML VIAL 60 MG IVPUSH ×4 (00:36→19:49)
[2024-02-29] MEDS: traMADoL HCL 50 MG TABLET PO ×3 (02:21→17:25)
--- NOTE | 2024-02-29 04:55 | PC.NURSE ---
Patient states he ate piece of pie a couple hours ago and feels his blood sugar is high. I do not see that he is diabetic by his chart, but he reports doctors have questioned if he was a diabetic. [employer] checked POC as precaution. Blood sugar 148
[2024-02-29 05:02] LABS: Glucose, Whole Blood 148 mg/dL (60-115)
[2024-02-29] MEDS: Pantoprazole Sodium 20 MG TABLET.DR 40 MG PO (06:22)
[2024-02-29 08:02] LABS: Hematocrit 41.3 % (42.0-52.0); Hemoglobin 13.5 g/dl (14.0-18.0); Mean Corpuscular HGB Conc 32.7 g/dl (31.0-36.0); Mean Corpuscular Hemoglobin 29.7 pg (27.0-33.0); Platelet Count 211 X10*3/uL (160-400); Red Blood Count 4.54 X10*6/uL (4.60-5.80); Red Cell Distribution Width 12.9 % (11.0-16.0)
[2024-02-29 08:06] LABS: WBC ABN SCTR FOR CBC 1
[2024-02-29] MEDS: Fluticasone/Umeclidinium/Vilanterol 200/62.5/25 BLST.W.DEV 1 PUFF INHALE (08:17)
[2024-02-29 08:23] LABS: Alanine Aminotransferase 81 U/L (0-40); Albumin Level 3.5 g/dL (3.5-5.0); Alkaline Phosphatase 111 U/L (39-117); Anion Gap 14 (12-20); Aspartate Amino Transferase 76 U/L (5-37); Bilirubin Total 0.3 mg/dL (0.0-1.0); Blood Urea Nitrogen 24 mg/dL (9-16); Calcium 8.9 mg/dL (8.4-10.2); Carbon Dioxide 27 mmol/L (22-29); Chloride 103 mmol/L (96-108); Creatinine Clr Calc Pharmacy 58.6; Estimated Glomerular Filt Rate 56; Glucose Fasting 194 mg/dL (60-99); Potassium 4.1 mmol/L (3.3-5.1); Sodium 140 mmol/L (135-145); Total Protein 6.6 g/dL (6.5-8.0)
[2024-02-29 08:27] LABS: Band Neutrophils Percent 4 % (3-5); Lymphocytes Percent Manual 3 % (20-40); Monocytes Percent Manual 1 % (2-11); Neutrophils Percent Manual 92 % (45-73)
[2024-02-29 08:28] LABS: Lymphocytes Absolute Manual 0.5 X10*3/uL (1.2-4.9); Monocytes Absolute Manual 0.2 X10*3/uL (0.1-1.2); Neutrophils Absolute Manual 17.1 X10*3/uL (2.0-8.3); Platelet Estimate NORMAL (NORMAL); Platelet Morphology Comment NORMAL; RBC Morphology NORMAL; White Blood Count 17.8 X10*3/uL (4.8-10.8)
[2024-02-29] MEDS: 0.9 % Sodium Chloride Flush 3 ML SYRINGE IVFLUSH ×3 (08:50→19:50)
[2024-02-29] MEDS: Doxycycline Hyclate 100 MG in 0.9 % Sodium Chloride 250 ML 166.67 MG IV ×2 (08:54→19:49)
[2024-02-29] MEDS: Magnesium Oxide 400 MG TABLET 200 MG PO (08:56)
[2024-02-29] MEDS: Pregabalin 100 MG CAPSULE PO ×2 (08:56→19:50)
[2024-02-29] MEDS: Tamsulosin HCL 0.4 MG CAPSULE 0.8 MG PO (08:57)
[2024-02-29] MEDS: lisinopriL 5 MG TABLET PO (08:57)
[2024-02-29] MEDS: Famotidine 20 MG TABLET PO (08:57)
[2024-02-29] MEDS: Rivaroxaban 10 MG TABLET PO (08:57)
[2024-02-29] MEDS: Atorvastatin Calcium 40 MG TABLET PO (08:57)
[2024-02-29] MEDS: Furosemide 40 MG TABLET PO (09:01)
[2024-02-29] MEDS: Clotrimazole 1 % Cream 15 GM TUBE 1 APPL TOPICAL ×2 (09:03→19:50)
--- NOTE | 2024-02-29 13:07 | HO.PM.IMPN ---
Subjective Subjective Date of Service: 02/29/24 Interval History: Continues to improve with the addition of steroids. States less pain when ambulating Review of Systems Denies chest pain Denies shortness of breath Denies nausea vomiting diarrhea Denies fever chills Physical Exam Vital Signs: Vital Signs: Last Vital Signs Temp 96.8 F 02/29/24 07:17 Pulse 78 02/29/24 08:19 Resp 18 02/29/24 08:19 BP 120/58 L 02/29/24 09:01 Pulse Ox 100 02/29/24 07:17 O2 Del Method Nasal Cannula 02/29/24 07:17 O2 Flow Rate 4 02/29/24 07:17 Oxygen Flow Rate 2 02/27/24 14:27 BMI result Body Mass Index 31.2 Const: Other: Awake alert oriented x3 no acute distress Resp: Other: Clear to auscultation bilaterally no rales rhonchi or wheezes Cardio: Other: No S4; positive S1-S2; no S3 murmurs rubs or gallops GI: Other: Soft nontender nondistended normoactive bowel sounds Skin: General skin exam: no rashes or lesions noted, elasticity normal and turgor normal Extrem: Other: Erythema right foot essentially unchanged no edema bilaterally Objective Data Active Medications Acetaminophen (Acetaminophen 325 Mg Tablet) 650 mg PO Q6H PRN PRN Reason: Pain, Mild (Pain Scale 1-3), fever or headache Last Admin: 02/29/24 00:35 Dose: 650 mg Documented By: MIGUEL Albuterol Sulfate (Albuterol Sulfate 90 Mcg 8 Gm Inhaler) 2 puff INHALE Q6H PRN PRN Reason: shortness of breath or wheezing Atorvastatin Calcium (Atorvastatin Calcium 40 Mg Tablet) 40 mg PO DAILY [facility] Last Admin: 02/29/24 08:57 Dose: 40 mg Documented By: YURIY Benzonatate (Benzonatate 100 Mg Capsule) 100 mg PO TID PRN PRN Reason: Cough Calcium Carbonate (Calcium Carbonate 750 Mg Tab.Chew) 750 mg PO Q4H PRN PRN Reason: Heartburn Clotrimazole (Clotrimazole 1 % Cream 15 Gm Tube) 1 appl TOPICAL BID [facility]; Protocol Last Admin: 02/29/24 09:03 Dose: 1 appl Documented By: YURIY Cyclobenzaprine HCl (Cyclobenzaprine Hcl 10 Mg Tablet) 10 mg PO BEDTIME PRN PRN Reason: muscle spasm Last Admin: 02/28/24 02:09 Dose: 10 mg Documented By: CHINEDU Famotidine (Famotidine 20 Mg Tablet) 20 mg PO DAILY [facility] Last Admin: 02/29/24 08:57 Dose: 20 mg Documented By: YURIY Fluticasone/Umeclidinium/Vilanterol (Fluticasone/Umeclidinium/Vilanterol 200/62.5/25 Blst.W.Dev) 1 puff INHALE RDAILY [facility] Last Admin: 02/29/24 08:17 Dose: 1 puff Documented By: BLAROGER Furosemide (Furosemide 40 Mg Tablet) 40 mg PO DAILY [facility]; Protocol Last Admin: 02/29/24 09:01 Dose: 40 mg Documented By: YURIY Doxycycline Hyclate 100 mg/ (Sodium Chloride) 250 mls @ 166.67 mls/hr IV Q12H [facility] Last Infusion: 02/29/24 10:32 Dose: Infused Documented By: YURIY Lisinopril (Lisinopril 5 Mg Tablet) 5 mg PO DAILY [facility]; Protocol Last Admin: 02/29/24 08:57 Dose: 5 mg Documented By: YURIY Magnesium Hydroxide (Milk Of Magnesia 30 Ml Oral.Susp) 30 ml PO DAILY PRN PRN Reason: Constipation Magnesium Oxide (Magnesium Oxide 400 Mg Tablet) 200 mg PO DAILY [facility] Last Admin: 02/29/24 08:56 Dose: 200 mg Documented By: YURIY Melatonin (Melatonin 3 Mg Tablet) 6 mg PO BEDTIME PRN PRN Reason: Insomnia Methylprednisolone Sodium Succinate (Methylprednisolone Sod Succ 125 Mg/2 Ml Vial) 60 mg IVPUSH Q6H [facility] Last Admin: 02/29/24 08:52 Dose: 60 mg Documented By: YURIY Nicotine (Nicotine 14 Mg Patch.Td24) 14 mg TRANSDERMA DAILY PRN PRN Reason: Nicotine Cravings Ondansetron HCl (Ondansetron Hcl 4 Mg/2 Ml Vial) 4 mg IVPUSH Q8H PRN PRN Reason: Nausea and Vomiting Pantoprazole Sodium (Pantoprazole Sodium 20 Mg Tablet.Dr) 40 mg PO DAILY@0630 [facility] Last Admin: 02/29/24 06:22 Dose: 40 mg Documented By: MIGUEL Pregabalin (Pregabalin 100 Mg Capsule) 100 mg PO BID [facility] Last Admin: 02/29/24 08:56 Dose: 100 mg Documented By: YURIY Rivaroxaban (Rivaroxaban 10 Mg Tablet) 10 mg PO DAILY [facility] Last Admin: 02/29/24 08:57 Dose: 10 mg Documented By: YURIY Sodium Chloride (0.9 % Sodium Chloride Flush 3 Ml Syringe) 3 ml IVFLUSH QSHIFT [facility] Last Admin: 02/29/24 08:50 Dose: 3 ml Documented By: YURIY Tamsulosin HCl (Tamsulosin Hcl 0.4 Mg Capsule) 0.8 mg PO DAILY [facility] Last Admin: 02/29/24 08:57 Dose: 0.8 mg Documented By: YURIY Tramadol HCl (Tramadol Hcl 50 Mg Tablet) 50 mg PO Q6H PRN PRN Reason: Pain, Moderate(Pain Scale 4-6) Last Admin: 02/29/24 10:30 Dose: 50 mg Documented By: YURIY Labs 02/29/24 06:24 02/29/24 06:24 Labs: Laboratory Results - last 24 hr 02/28/24 02/29/24 02/29/24 16:09 04:57 06:24 MCV 91.0 MCH 29.7 MCHC 32.7 RDW 12.9 Plt Count 211 MPV 12.0 Immature Gran % (Auto) Cancelled Neut % (Auto) Cancelled Lymph % (Auto) Cancelled [place] % (Auto) Cancelled Eos % (Auto) Cancelled Baso % (Auto) Cancelled Lymph # (Auto) Cancelled [place] # (Auto) Cancelled Eos # (Auto) Cancelled Baso # (Auto) Cancelled Abs Immat Gran (auto) Cancelled Absolute Neuts (auto) Cancelled Absolute Nucleated RBC 0.000 Nucleated RBC % (auto) 0.0 Neutrophils % (Manual) 92 H Band Neutrophils % 4 Lymphocytes % (Manual) 3 L Monocytes % (Manual) 1 L Abs Neuts (Manual) 17.1 H Lymphocytes # (Manual) 0.5 L Monocytes # (Manual) 0.2 Platelet Estimate NORMAL Plt Morphology Comment NORMAL RBC Morphology NORMAL Anion Gap 14 Estim Creat Clear Calc 58.6 Estimated GFR 56 POC Glucose 148 H Fasting Glucose 194 H Calcium 8.9 Total Bilirubin 0.3 AST 76 H ALT 81 H Alkaline Phosphatase 111 Total Protein 6.6 Albumin 3.5 Random Vancomycin < 2.0 L Microbiology Microbiology Results: Microbiology 02/27/24 15:42 Blood Culture - Preliminary Blood - Venous No growth after 24 hours. 02/27/24 15:31 Blood Culture - Preliminary Blood - Venous No growth after 24 hours. Assessment and Plan (1) Cellulitis of foot: Status: Acute Plan Pt is a 79-year-old male with a PMH significant for?CHF, COPD chronically on 2L home O2, peripheral artery disease s/p right great toe amputation, AAA, paroxysmal AFib on Xarelto, HTN, peripheral neuropathy, BPH, current smoker and GERD who presents to the ED with right foot swelling, redness, and pain x2 days. Pt will be admitted to the hospital for treatment and further evaluation of right leg cellulitis in the setting of chronic right foot ulcer. 1.Right foot cellulitis (component of eczematous dermatitis) -doxycycline (2) -pulse dose methylprednisolone -clotrimazole cream in between toes.. Leave open to air 2. Hypertension (relative hypotension on admission) -acceptable control at this point -adjust/add back therapies as clinically indicated 3.Paroxysmal AFib -rate control acceptable -continue Xarelto -adjust therapies as indicated 4. HFpEF -stable and well compensated -resume Lasix now that normotensive Full Code Xarelto Requires ongoing hospitalization to treat cellulitis with IV antibiotics. High risk for outpatient failure Quality Stroke Does the patient have a stroke diagnosis?: No VTE Prior VTE?: No VTE Risk Level:: Medical - moderate - high VTE Device Contraindication: Treatment Not Indicated VTE Drug Contraindication: N/A - Med Ordered
--- NOTE | 2024-02-29 18:22 | PC.NURSE ---
Pt. refused dsg change today, wanted to leave right foot wound open to air. aware.
[2024-02-29] MEDS: Cyclobenzaprine HCl 10 MG TABLET PO (19:50)
[2024-03-01] MEDS: methylPREDNISolone Sod Succ 125 MG/2 ML VIAL 60 MG IVPUSH ×2 (00:45→06:05)
[2024-03-01] MEDS: traMADoL HCL 50 MG TABLET PO ×3 (01:41→21:46)
[2024-03-01 04:00] VITALS: BP 142/79; PULSE 85; RESP 18; TEMP 36.1; O2SAT 99
[2024-03-01] MEDS: Pantoprazole Sodium 20 MG TABLET.DR 40 MG PO (06:05)
[2024-03-01 06:12] LABS: Alanine Aminotransferase 112 U/L (0-40); Albumin Level 3.6 g/dL (3.5-5.0); Alkaline Phosphatase 117 U/L (39-117); Anion Gap 16 (12-20); Aspartate Amino Transferase 76 U/L (5-37); Bilirubin Total 0.3 mg/dL (0.0-1.0); Blood Urea Nitrogen 29 mg/dL (9-16); Carbon Dioxide 24 mmol/L (22-29); Chloride 102 mmol/L (96-108); Creatinine Clr Calc Pharmacy 49.8; Estimated Glomerular Filt Rate 47; Glucose Fasting 205 mg/dL (60-99); Potassium 4.3 mmol/L (3.3-5.1); Sodium 138 mmol/L (135-145); Total Protein 6.9 g/dL (6.5-8.0)
[2024-03-01 07:11] LABS: Basophils Percent Auto 0.1 % (0-2); Eosinophils Absolute Auto 0.1 X10*3/uL (0.0-0.4); Eosinophils Percent Auto 0.3 % (0-4); Hematocrit 40.9 % (42.0-52.0); Hemoglobin 13.6 g/dl (14.0-18.0); Imm Gran Abs Auto 0.27 X10*3/uL (0.00-0.03); Imm Gran Pct Auto 1.2 % (0.0-0.4); Lymphocytes Absolute Auto 0.9 X10*3/uL (1.2-4.9); Lymphocytes Percent Auto 4.1 % (20-40); MANUAL DIFF FLAG SCAN; Mean Corpuscular HGB Conc 33.3 g/dl (31.0-36.0); Mean Corpuscular Volume 90.1 fL (80.0-98.0); Mean Platelet Volume 11.2 fL (9.4-12.4); Monocytes Absolute Auto 0.5 X10*3/uL (0.1-1.2); Monocytes Percent Auto 2.3 % (2-11); Neutrophils Absolute Auto 20.8 x10*3/uL (2.0-8.3); Platelet Count 219 X10*3/uL (160-400); Red Blood Count 4.54 X10*6/uL (4.60-5.80); Red Cell Distribution Width 13.1 % (11.0-16.0); SCAN SMEAR FLAG 1; White Blood Count 22.6 X10*3/uL (4.8-10.8)
[2024-03-01 07:26] VITALS: BP 123/73; PULSE 84; RESP 12; TEMP 36.1; O2SAT 99
[2024-03-01 07:46] LABS: SLIDE REVIEW VERIFIED
[2024-03-01] MEDS: Tamsulosin HCL 0.4 MG CAPSULE 0.8 MG PO (08:27)
[2024-03-01] MEDS: Rivaroxaban 10 MG TABLET PO (08:27)
[2024-03-01] MEDS: Atorvastatin Calcium 40 MG TABLET PO (08:27)
[2024-03-01] MEDS: Famotidine 20 MG TABLET PO (08:27)
[2024-03-01] MEDS: lisinopriL 5 MG TABLET PO (08:27)
[2024-03-01] MEDS: Furosemide 40 MG TABLET PO (08:28)
[2024-03-01] MEDS: Magnesium Oxide 400 MG TABLET 200 MG PO (08:28)
[2024-03-01] MEDS: Pregabalin 100 MG CAPSULE PO ×2 (08:28→19:21)
[2024-03-01] MEDS: 0.9 % Sodium Chloride Flush 3 ML SYRINGE IVFLUSH ×2 (08:30→21:53)
[2024-03-01] MEDS: Doxycycline Hyclate 100 MG in 0.9 % Sodium Chloride 250 ML 166.67 MG IV (08:32)
[2024-03-01] MEDS: Clotrimazole 1 % Cream 15 GM TUBE 1 APPL TOPICAL ×2 (08:33→19:27)
[2024-03-01] MEDS: Doxycycline Monohydrate 100 MG CAPSULE PO ×2 (11:51→21:52)
--- NOTE | 2024-03-01 12:24 | HO.PM.IMPN ---
Subjective Subjective Date of Service: 03/01/24 Interval History: being followed for right foot cellulitis, feeling better decreased redness and swelling complaining of persistent mild discomfort with ambulation, no fevers no lightheadedness dizziness, no nausea vomiting or diarrhea. Review of Systems All other system reviewed and are negative. Physical Exam Vital Signs: Vital Signs: Last Vital Signs Temp 97.0 F 03/01/24 07:26 Pulse 84 03/01/24 07:26 Resp 12 03/01/24 07:26 BP 123/73 03/01/24 07:26 Pulse Ox 99 03/01/24 07:26 O2 Del Method Nasal Cannula 03/01/24 07:26 O2 Flow Rate 4 03/01/24 07:26 Oxygen Flow Rate 2 02/27/24 14:27 BMI result Body Mass Index 31.2 Const: Other: General: AOx3, no acute distress neck no JVD Resp: CTA bilaterally CVS: Irregularly irregular rhythm GI: +BS, NT, no distention Neuro: non focal Extremities: Right leg s/p great toe amputation. Right lower extremity/foot, redness swelling significantly improved, dry scaly skin dorsum of foot and lower leg Psych: Appropriate affect Objective Data Active Medications Acetaminophen (Acetaminophen 325 Mg Tablet) 650 mg PO Q6H PRN PRN Reason: Pain, Mild (Pain Scale 1-3), fever or headache Last Admin: 02/29/24 22:27 Dose: 650 mg Documented By: LAYTON Albuterol Sulfate (Albuterol Sulfate 90 Mcg 8 Gm Inhaler) 2 puff INHALE Q6H PRN PRN Reason: shortness of breath or wheezing Atorvastatin Calcium (Atorvastatin Calcium 40 Mg Tablet) 40 mg PO DAILY [facility] Last Admin: 03/01/24 08:27 Dose: 40 mg Documented By: HOLLY Benzonatate (Benzonatate 100 Mg Capsule) 100 mg PO TID PRN PRN Reason: Cough Calcium Carbonate (Calcium Carbonate 750 Mg Tab.Chew) 750 mg PO Q4H PRN PRN Reason: Heartburn Clotrimazole (Clotrimazole 1 % Cream 15 Gm Tube) 1 appl TOPICAL BID [facility]; Protocol Last Admin: 03/01/24 08:33 Dose: 1 appl Documented By: HOLLY Cyclobenzaprine HCl (Cyclobenzaprine Hcl 10 Mg Tablet) 10 mg PO BEDTIME PRN PRN Reason: muscle spasm Last Admin: 02/29/24 19:50 Dose: 10 mg Documented By: LAYTON Doxycycline Monohydrate (Doxycycline Monohydrate 100 Mg Capsule) 100 mg PO Q12H [facility] Last Admin: 03/01/24 11:51 Dose: 100 mg Documented By: HOLLY Famotidine (Famotidine 20 Mg Tablet) 20 mg PO DAILY [facility] Last Admin: 03/01/24 08:27 Dose: 20 mg Documented By: HOLLY Fluticasone/Umeclidinium/Vilanterol (Fluticasone/Umeclidinium/Vilanterol 200/62.5/25 Blst.W.Dev) 1 puff INHALE RDAILY [facility] Last Admin: 03/01/24 07:49 Dose: Not Given Documented By: SHABANA Non-Admin Reason: Patient Asleep Sodium Chloride (Ns) 1,000 mls @ 100 mls/hr IVCONT .Q10H [facility] Stop: 03/01/24 17:29 Lisinopril (Lisinopril 5 Mg Tablet) 5 mg PO DAILY [facility]; Protocol Last Admin: 03/01/24 08:27 Dose: 5 mg Documented By: HOLLY Magnesium Hydroxide (Milk Of Magnesia 30 Ml Oral.Susp) 30 ml PO DAILY PRN PRN Reason: Constipation Magnesium Oxide (Magnesium Oxide 400 Mg Tablet) 200 mg PO DAILY [facility] Last Admin: 03/01/24 08:28 Dose: 200 mg Documented By: HOLLY Melatonin (Melatonin 3 Mg Tablet) 6 mg PO BEDTIME PRN PRN Reason: Insomnia Nicotine (Nicotine 14 Mg Patch.Td24) 14 mg TRANSDERMA DAILY PRN PRN Reason: Nicotine Cravings Ondansetron HCl (Ondansetron Hcl 4 Mg/2 Ml Vial) 4 mg IVPUSH Q8H PRN PRN Reason: Nausea and Vomiting Pantoprazole Sodium (Pantoprazole Sodium 20 Mg Tablet.Dr) 40 mg PO DAILY@0630 [facility] Last Admin: 03/01/24 06:05 Dose: 40 mg Documented By: LAYTON Pregabalin (Pregabalin 100 Mg Capsule) 100 mg PO BID [facility] Last Admin: 03/01/24 08:28 Dose: 100 mg Documented By: HOLLY Rivaroxaban (Rivaroxaban 10 Mg Tablet) 10 mg PO DAILY [facility] Last Admin: 03/01/24 08:27 Dose: 10 mg Documented By: HOLLY Sodium Chloride (0.9 % Sodium Chloride Flush 3 Ml Syringe) 3 ml IVFLUSH QSHIFT [facility] Last Admin: 03/01/24 08:30 Dose: 3 ml Documented By: HOLLY Tamsulosin HCl (Tamsulosin Hcl 0.4 Mg Capsule) 0.8 mg PO DAILY [facility] Last Admin: 03/01/24 08:27 Dose: 0.8 mg Documented By: HOLLY Tramadol HCl (Tramadol Hcl 50 Mg Tablet) 50 mg PO Q6H PRN PRN Reason: Pain, Moderate(Pain Scale 4-6) Last Admin: 03/01/24 01:41 Dose: 50 mg Documented By: LAYTON Labs 03/01/24 07:02 03/01/24 05:24 Labs: Laboratory Results - last 24 hr 03/01/24 03/01/24 05:24 07:02 MCV 90.1 MCH 30.0 MCHC 33.3 RDW 13.1 Plt Count 219 MPV 11.2 Immature Gran % (Auto) 1.2 H Neut % (Auto) 92.0 H Lymph % (Auto) 4.1 L [place] % (Auto) 2.3 Eos % (Auto) 0.3 Baso % (Auto) 0.1 Lymph # (Auto) 0.9 L [place] # (Auto) 0.5 Eos # (Auto) 0.1 Baso # (Auto) 0.0 Abs Immat Gran (auto) 0.27 H Absolute Neuts (auto) 20.8 H Absolute Nucleated RBC 0.000 Nucleated RBC % (auto) 0.0 Smear Tech's Comments VERIFIED Anion Gap 16 Estim Creat Clear Calc 49.8 Estimated GFR 47 Fasting Glucose 205 H Calcium 9.0 Total Bilirubin 0.3 AST 76 H ALT 112 H Alkaline Phosphatase 117 Total Protein 6.9 Albumin 3.6 Microbiology Microbiology Results: Microbiology 02/27/24 15:42 Blood Culture - Preliminary Blood - Venous No growth after 48 hours. 02/27/24 15:31 Blood Culture - Preliminary Blood - Venous No growth after 48 hours. Assessment and Plan (1) Cellulitis of foot: Status: Acute (2) PAD (peripheral artery disease): Status: Acute Plan 79-year-old male with a PMH significant for?CHF, COPD chronically on 2L home O2, peripheral artery disease s/p right great toe amputation, AAA, paroxysmal AFib on Xarelto, HTN, peripheral neuropathy, BPH, current smoker and GERD who presents to the ED with right foot swelling, redness, and pain x2 days. Pt will be admitted to the hospital for treatment and further evaluation of right leg cellulitis in the setting of chronic right foot ulcer. 1.Right foot cellulitis (component of eczematous dermatitis) - no fevers significant improvement in redness, no swelling, mild discomfort with ambulation -on iv doxycycline (3), will transition to po doxy -dc pulse dose methylprednisolone, DC Lasix - continue clotrimazole cream in between toes.. Leave open to air - Kenalog cream to right lower leg b.i.d. 2. Hypertension (relative hypotension on admission) -acceptable control at this point -adjust/add back therapies as clinically indicated 3.Paroxysmal AFib -rate control acceptable -continue Xarelto -adjust therapies as indicated 4. HFpEF -stable and well compensated -resume Lasix now that normotensive 5. leukocytosis likely due to steroids 6. slight bump in creatinine no MAGDY will hold Lasix give IV fluid 500 mL follow BMP. Full Code Xarelto Requires ongoing hospitalization to treat cellulitis with antibiotics and IV fluid for rising creatinine. Quality Stroke Does the patient have a stroke diagnosis?: No VTE Prior VTE?: No VTE Risk Level:: Medical - moderate - high VTE Device Contraindication: Treatment Not Indicated VTE Drug Contraindication: N/A - Med Ordered
[2024-03-01] MEDS: 0.9 % Sodium Chloride 500 ML 100 ML IVCONT (13:26)
[2024-03-01] MEDS: Triamcinolone Acet 0.5 % Cream 15 GM TUBE 1 APPL TOPICAL ×2 (15:12→19:28)
[2024-03-01 15:21] VITALS: BP 121/58; PULSE 82; RESP 16; TEMP 36.3; O2SAT 99
[2024-03-01] MEDS: Acetaminophen 325 MG TABLET 650 MG PO (19:20)
[2024-03-01 19:38] VITALS: BP 117/77; PULSE 66; RESP 16; TEMP 35.7; O2SAT 98
[2024-03-02 03:09] VITALS: BP 155/72; PULSE 66; RESP 18; TEMP 36.1; O2SAT 98
[2024-03-02] MEDS: Acetaminophen 325 MG TABLET 650 MG PO ×2 (03:13→09:42)
[2024-03-02] MEDS: traMADoL HCL 50 MG TABLET PO ×2 (03:46→09:47)
[2024-03-02] MEDS: Cyclobenzaprine HCl 10 MG TABLET PO (03:46)
[2024-03-02] MEDS: Pantoprazole Sodium 20 MG TABLET.DR 40 MG PO (06:12)
[2024-03-02 07:00] LABS: MANUAL DIFF FLAG NO
[2024-03-02 07:04] LABS: Basophils Percent Auto 0.1 % (0-2); Hematocrit 42.2 % (42.0-52.0); Imm Gran Abs Auto 0.33 X10*3/uL (0.00-0.03); Imm Gran Pct Auto 1.6 % (0.0-0.4); Lymphocytes Absolute Auto 2.2 X10*3/uL (1.2-4.9); Mean Corpuscular HGB Conc 33.2 g/dl (31.0-36.0); Mean Corpuscular Hemoglobin 30.1 pg (27.0-33.0); Mean Corpuscular Volume 90.8 fL (80.0-98.0); Mean Platelet Volume 11.8 fL (9.4-12.4); Monocytes Absolute Auto 1.4 X10*3/uL (0.1-1.2); Monocytes Percent Auto 6.9 % (2-11); Neutrophils Absolute Auto 16.2 x10*3/uL (2.0-8.3); Neutrophils Percent Auto 80.4 % (45-73); Platelet Count 224 X10*3/uL (160-400); Red Blood Count 4.65 X10*6/uL (4.60-5.80); Red Cell Distribution Width 13.2 % (11.0-16.0); White Blood Count 20.2 X10*3/uL (4.8-10.8)
[2024-03-02 07:38] LABS: Alanine Aminotransferase 105 U/L (0-40); Albumin Level 3.2 g/dL (3.5-5.0); Alkaline Phosphatase 86 U/L (39-117); Anion Gap 9 (12-20); Aspartate Amino Transferase 55 U/L (5-37); Bilirubin Total 0.2 mg/dL (0.0-1.0); Blood Urea Nitrogen 32 mg/dL (9-16); Calcium 8.3 mg/dL (8.4-10.2); Carbon Dioxide 34 mmol/L (22-29); Chloride 102 mmol/L (96-108); Creatinine Clr Calc Pharmacy 50.8; Estimated Glomerular Filt Rate 48; Glucose Fasting 116 mg/dL (60-99); Potassium 4.3 mmol/L (3.3-5.1); Sodium 141 mmol/L (135-145); Total Protein 5.9 g/dL (6.5-8.0)
[2024-03-02 07:45] VITALS: BP 133/60; PULSE 54; RESP 16; TEMP 36.6; O2SAT 100
[2024-03-02] MEDS: Pregabalin 100 MG CAPSULE PO (08:40)
[2024-03-02] MEDS: Tamsulosin HCL 0.4 MG CAPSULE 0.8 MG PO (08:40)
[2024-03-02] MEDS: lisinopriL 5 MG TABLET PO (08:40)
[2024-03-02] MEDS: Famotidine 20 MG TABLET PO (08:40)
[2024-03-02] MEDS: Magnesium Oxide 400 MG TABLET 200 MG PO (08:41)
[2024-03-02] MEDS: Atorvastatin Calcium 40 MG TABLET PO (08:41)
[2024-03-02] MEDS: Rivaroxaban 10 MG TABLET PO (08:41)
[2024-03-02] MEDS: Fluticasone/Umeclidinium/Vilanterol 200/62.5/25 BLST.W.DEV 1 PUFF INHALE (08:41)
[2024-03-02 08:43] VITALS: PULSE 54; RESP 16; O2SAT 99
[2024-03-02] MEDS: Sodium Chloride 0.65 % Nasal 44 ML SPRBTL 1 SPRAY NOSTRIL-B (08:46)
[2024-03-02] MEDS: 0.9 % Sodium Chloride Flush 3 ML SYRINGE IVFLUSH (08:49)
[2024-03-02] MEDS: Doxycycline Monohydrate 100 MG CAPSULE PO (09:47)
--- NOTE | 2024-03-02 10:46 | P.DS_ITS ---
DS: Providers Provider Date of Service: 03/02/24 Date of admission: 02/27/24 19:58 Date of discharge: 03/02/24 Primary care physician: Kiana Carrillo MD Consults: 02/28/24 01:37 Consult to Wound Care Routine Reason for consultation: cellulitis to right foot. DS: Diagnosis Discharge Diagnosis (1) Cellulitis of foot: Status: Acute (2) PAD (peripheral artery disease): Status: Acute DS: Summary Hospital Course Hospital Course: Date of Service: 02/27/24 Attending physician on admission: [facility] Chief Complaint: Right foot redness and pain Pt is a 79-year-old male with a PMH significant for?CHF, COPD chronically on 2L home O2, peripheral artery disease s/p right great toe amputation, AAA, paroxysmal AFib on Xarelto, HTN, peripheral neuropathy, BPH, current smoker and GERD who presents to the ED with right foot swelling, redness, and pain x2 days. Patient is status post right great toe amputation over 1 year ago in [place]. Subsequently developed nonhealing ulcer on right 2nd digit. Is seen by [facility]NA services twice a week who change his dressing. Has not yet established with Wound Care though has upcoming appointment. States approximately 3 days ago patient experienced sudden onset of redness, swelling, pain, and scaling of his skin. Was seen by VNA services today who suggested he come to the ED for further evaluation due to concern for foot infection. Patient otherwise had no acute medical complaints at brought him in. Of note, while patient was being treated in the ED with vancomycin, patient had a sudden onset episode where he felt that his arms and chest were ?on fire? and felt a tightness and heaviness in his chest. Also felt lightheaded, dizzy, and like he was going to pass out. Patient was noted to suddenly become hypotensive as low as 62/36. Vancomycin was stopped with quick improvement in patient's blood pressure which returned to normal. Patient was then administered 500 cc of IVF. Currently patient complains of continue chest tightness, but no other symptoms. Denies nausea, vomiting, abdominal pain. No fever, chills. Denies lightheadedness or dizziness. In the ED pt was hypotensive as low as 62/36, vitals otherwise stable and WNL. Labs were grossly unremarkable and around baseline for patient. No leukocytosis. Stable H&H. ESR WNL at 14. CRP mildly elevated at 0.73. Troponin negative. BNP negative. No significant electrolyte abnormalities. Renal and hepatic function WNL. X-ray of right foot without evidence of osteomyelitis.. X-ray of right tibia and fibula unremarkable. Initial EKG demonstrated normal sinus rhythm without evidence of significant ST elevations or depressions. Repeat EKG showed atrial fibrillation with slow ventricular response and PVCs. Pt was treated with IVF, Zosyn, and doxycycline. Pt will be admitted to the hospital for treatment and further evaluation of left leg cellulitis in the setting of chronic right foot ulcer. Hospital course: 79-year-old male with a PMH significant for?CHF, COPD chronically on 2L home O2, peripheral artery disease s/p right great toe amputation, AAA, paroxysmal AFib on Xarelto, HTN, peripheral neuropathy, BPH, current smoker and GERD who presents to the ED with right foot swelling, redness, and pain x2 days, and admitted to hospital with a diagnosis of right foot cellulitis. 1.Right foot cellulitis with component of eczematous dermatitis, patient treated with intravenous doxycycline, IV steroids and Lasix with good response, swelling and redness significantly improved, recommend doxycycline 1 tablet twice daily for 5 more days and steroid cream twice daily to right lower leg, recommend continue VNA services at home. 2. Hypertension stable continue lisinopril. 3.Paroxysmal AFib continue Xarelto 4. HFpEF no acute exacerbation noted will hold Lasix due to bump in creatinine recommend to repeat BMP in few days and resume Lasix on March 05. 5. leukocytosis likely due to steroids trending down. 6. slight bump in creatinine no MAGDY recommend to hold Lasix and follow BMP. Time Attestation Discharge Coordination Time (in mins): 40 Quality: Safe Use of Opioids Does Pt have an Active Cancer Diagnosis on the Problem List?: No Quality: Stroke Does the patient have a stroke diagnosis?: No Physical Exam Vital Signs: Vital Signs: Last Vital Signs Temp 97.8 F 03/02/24 07:45 Pulse 54 03/02/24 08:43 Resp 16 03/02/24 08:43 BP 133/60 03/02/24 07:45 Pulse Ox 100 03/02/24 07:45 O2 Del Method Nasal Cannula 03/02/24 07:45 O2 Flow Rate 2.0 03/02/24 07:45 Oxygen Flow Rate 2 02/27/24 14:27 BMI result Body Mass Index 31.2 Const: Other: General: AOx3, no acute distress Neck no JVD Resp: CTA bilaterally CVS: Irregularly irregular rhythm GI: +BS, NT, no distention Neuro: non focal Extremities: Right leg s/p great toe amputation. Right lower extremity/foot, redness swelling significantly improved, dry scaly skin dorsum of foot and lower leg. Chronic 2nd toe wound stable with no drainage. Psych: Appropriate affect DS: Data Data Completed and Pending Labs on day of discharge: Laboratory Results - last 24 hr 03/02/24 05:51 WBC 20.2 H RBC 4.65 Hgb 14.0 Hct 42.2 MCV 90.8 MCH 30.1 MCHC 33.2 RDW 13.2 Plt Count 224 MPV 11.8 Immature Gran % (Auto) 1.6 H Neut % (Auto) 80.4 H Lymph % (Auto) 11.0 L [place] % (Auto) 6.9 Eos % (Auto) 0.0 Baso % (Auto) 0.1 Lymph # (Auto) 2.2 [place] # (Auto) 1.4 H Eos # (Auto) 0.0 Baso # (Auto) 0.0 Abs Immat Gran (auto) 0.33 H Absolute Neuts (auto) 16.2 H Absolute Nucleated RBC 0.000 Nucleated RBC % (auto) 0.0 Sodium 141 Potassium 4.3 Chloride 102 Carbon Dioxide 34 H Anion Gap 9 L BUN 32 H Creatinine 1.43 H Estim Creat Clear Calc 50.8 Estimated GFR 48 Fasting Glucose 116 H Calcium 8.3 L D Total Bilirubin 0.2 AST 55 H ALT 105 H Alkaline Phosphatase 86 Total Protein 5.9 L Albumin 3.2 L Preliminary micro results at discharge 02/27/24 15:42 Blood Culture - Preliminary Blood - Venous No growth after 48 hours. 02/27/24 15:31 Blood Culture - Preliminary Blood - Venous No growth after 48 hours. Discharge Plan Discharge Anticipated Discharge Date/Time: 03/02/24 11:05 Patient Disposition: Home Health Service Discharge Diagnosis: right foot cellulitis Referrals: [facility] [Outside] Kiana Carrillo MD [Primary Care Provider] - 1 Week Discharge Medications: New doxycycline monohydrate 100 mg Capsule 100 mg PO Q12H Qty: 10 0RF triamcinolone acetonide 0.5 % cream 1 appl topical BID Qty: 15 0RF Rx Instructions: apply to right lower leg Continued tramadol 50 mg tablet 50 mg PO Q6H PRN (Reason: pain) Qty: 120 0RF (DME) Oxygen Home Use Kit See Rx Instructions .Route Qty: 1 0RF Rx Instructions: 2 L during daytime and 4 L at the time of sleep (DME) nebulizer accessories Kit See Rx Instructions .Route Qty: 1 0RF Rx Instructions: As directed albuterol sulfate 90 mcg/actuation HFA aerosol inhaler 2 puff inhalation Q6H PRN (Reason: shortness of breath or wheezing) Qty: 8.5 0RF lisinopril 5 mg tablet 5 mg PO DAILY famotidine 20 mg tablet 20 mg PO DAILY atorvastatin 40 mg tablet 40 mg PO DAILY clopidogrel 75 mg tablet 75 mg PO DAILY tamsulosin 0.4 mg capsule 0.8 mg PO DAILY pantoprazole 40 mg tablet,delayed release (DR/EC) 40 mg PO DAILY@0630 celecoxib 100 mg capsule 200 mg PO BEDTIME magnesium 250 mg tablet 250 mg PO DAILY dexlansoprazole 60 mg capsule,biphase delayed releas 60 mg PO DAILY Xarelto 10 mg tablet 10 mg PO DAILY Qty: 90 3RF Rx Instructions: for 35 days cyclobenzaprine 10 mg tablet 10 mg PO BEDTIME PRN (Reason: muscle spasm) Qty: 90 3RF pregabalin 100 mg capsule 100 mg PO BID Qty: 180 3RF Trelegy Ellipta 200-62.5-25 mcg blister with device 1 inh inhalation DAILY Qty: 60 6RF Held furosemide 40 mg tablet 40 mg PO DAILY Hold Instructions: Resume on 03/06/24. Discharge Orders: Discharge Order (Routine); Ordered 03/02/24 Ordered By: Caity Reyes Diet: Advance to usual diet Activity on Discharge: As tolerated Stand Alone Forms: Patient Portal Discharge page Print Language: Spanish Other Ambulatory Orders: Basic Metabolic Panel (Routine) Timeframe: [id number] Facility: [facility] - Location: Laboratory Ordered By: Caity Reyes Care Plan Goals: apply Kenalog steroid cream to right lower leg twice daily for 7-10 days, keep right lower leg moisturized, take doxycycline 1 tablet twice daily for 5 more days Hold Lasix for 3 days due to dehydration, check BMP on 03/05 avoid putting pressure on toes with ambulation/ keep leg elevated while sitting continue 2 L of home oxygen Health Concerns: continue all home medications Plan of Treatment: follow-up with PCP in 1 week Assessment: as above
[2024-03-02] MEDS: Triamcinolone Acet 0.5 % Cream 15 GM TUBE 1 APPL TOPICAL (11:27)
--- NOTE | 2024-03-02 12:05 | MHC.CM.PN ---
PT WILL DC HOME TODAY WITH [facility] TO TRANSPORT
== END 2024-03-02 11:46 | disposition home health service (06) | DRG 603 ==
LOC: HO.ED 18:10 → HO.EDOVER 20:14 → HO.S3 23:44
PROVIDERS: Hospitalist; Physician Assistant; Admitting Provider Student in an Organized Health Care Education/Training Program; Emergency Provider Emergency Medicine; PCP Internal Medicine; Visit Provider Hospitalist
DX: L03.115 Cellulitis of right lower limb (principal); I50.32 Chronic diastolic (congestive) heart failure; I11.0 Hypertensive heart disease with heart failure; F17.210 Nicotine dependence, cigarettes, uncomplicated; I48.0 Paroxysmal atrial fibrillation; N40.0 Benign prostatic hyperplasia without lower urinary tract symptoms; G62.9 Polyneuropathy, unspecified; J44.9 Chronic obstructive pulmonary disease, unspecified; Z71.6 Tobacco abuse counseling; L30.9 Dermatitis, unspecified; I70.235 Atherosclerosis of native arteries of right leg with ulceration of other part of foot; L97.519 Non-pressure chronic ulcer of other part of right foot with unspecified severity; I95.2 Hypotension due to drugs; E78.5 Hyperlipidemia, unspecified; T36.8X5A Adverse effect of other systemic antibiotics, initial encounter; Z23 Encounter for immunization; Z99.81 Dependence on supplemental oxygen; Z79.01 Long term (current) use of anticoagulants; Z79.51 Long term (current) use of inhaled steroids; Z79.899 Other long term (current) drug therapy
CPT/HCPCS: 36415; 73590; 73620; 80053; 80202; 82947; 83605; 83880; 84484; 85007; 85025; 85027; 85610; 85652; 85730; 86140; 87040; 90656; 93005; 99221; 99285; J2543; J2919; J3370

== ENCOUNTER → 2024-02-27 16:43 | Outpatient (BNV) | payer MEDICARE, SELFPAY | PROVIDERS: Admitting Provider Student in an Organized Health Care Education/Training Program; Emergency Provider Emergency Medicine; Visit Provider Internal Medicine | DX: I44.4 Left anterior fascicular block (principal); I49.1 Atrial premature depolarization; I49.3 Ventricular premature depolarization | CPT/HCPCS: 93010 ==

== ENCOUNTER → 2024-02-27 19:58 | Outpatient (BNV) | payer MEDICARE, SELFPAY | PROVIDERS: Admitting Provider Student in an Organized Health Care Education/Training Program; Emergency Provider Emergency Medicine; Visit Provider Hospitalist | DX: L03.119 Cellulitis of unspecified part of limb (principal) | CPT/HCPCS: 99232; 99239 ==

== ENCOUNTER 2024-03-08 11:00 | Outpatient (RCR) | payer MEDICARE, SELFPAY | END 2024-04-22 15:27 | disposition home or self-care (01) | LOC: HO.WCC 11:00 | PROVIDERS: PCP Internal Medicine; Visit Provider Surgery | DX: S81.802D Unspecified open wound, left lower leg, subsequent encounter (principal); F17.210 Nicotine dependence, cigarettes, uncomplicated; I10 Essential (primary) hypertension; I25.2 Old myocardial infarction; X58.XXXD Exposure to other specified factors, subsequent encounter | CPT/HCPCS: 99212 ==

== ENCOUNTER 2024-03-09 11:45 | Outpatient (AMB) | payer MEDICARE, SELFPAY ==
--- NOTE | 2024-03-09 11:29 | MHC.PC.OV ---
Vital Signs 03/09/24 11:53 BMI Reason not done Patient refused/unable BP 124/64 Blood Pressure Location Rt brachial Position Sitting Pulse 93 Pulse Source Pulse Oximeter Pulse Oximetry (%) 98 Oxygen Delivery Method Room Air Intake Visit Reasons: Tmc /Right Foot cellulitis Intake Note: Hospital follow up, right foot cellulitis. Saw charge entry specialist yesterday. Fibrous Plasterer Required: No Allergies lemon Allergy (Verified 03/10/24 13:22) Anaphylaxis morphine Allergy (Verified 03/10/24 13:22) Anaphylaxis vancomycin Allergy (Verified 03/10/24 13:22) Chest Pain Tobacco use date assessed: 01/09/24 Dental Screening Dental Screen Date: 01/09/24 HPI HPI Comments History of Present Illness Details The patient is a 79 year old male with a past medical history of type 2 diabetes, CAD, CHF, COPD on 2 L home 02, chronic back pain presenting for hospital follow up [place] [facility] [place] to [place] with right foot swelling, redness and pain for 2 days. In ED received vancomycin. Had feels that arms and chest were on fire. Got tightness and heaviness in the chest. Became hypotensive to 62/36. Vanc stopped. xray foot without evidence of osteomyelitis. Went into afib. Got IVF, zosyn, doxyccyline. Continued on IV doxycycline, IV steroids and Lasix with good response. DCd on additional po 5 days of doxycycline COPD oxygen-dependent 2 L during daytime and 4 L at the time while sleeping and using the CPAP. CV: Patient believes he has CHF, CAD-believes he had cardiac stents. Also reports a history of blood clots in the leg. Has chronic toe/foot wounds, sacral wound. Needs to be set up with vascular and wound care. Says he is on aspirin, plavix and xarelto as well as lipitor, lasix. Lasix was held during hospitalization for MAGDY. He is due for repeat BMP History of chronic pain-lumbar, neck. Says past medications have included methadone, oxycodone, vicodin. Currently on tramadol, lyrica, flexeril ROS No fevers Chronic sacral, extremity wounds PHYSICAL EXAM: GENERAL: Alert and oriented x 3. NAD EYES: EOMI. Anicteric. HENT: Moist mucous membranes. No scleral icterus. No cervical lymphadenopathy. LUNGS: Clear to auscultation bilaterally. CARDIOVASCULAR: Regular rate and rhythm. No murmur. No JVD. ABDOMEN: Soft, non-tender +bs EXTREMITIES: Right foot with mild redness, significant chronic distal peripheral vascular changes SKIN: Warm NEUROLOGIC: No focal neurological deficits. CN II-XII grossly intact PSYCHIATRIC: Cooperative. Appropriate mood and affect [facility] Social History (Updated 03/10/24 @ 13:23 by Katrin Marsh [facility]) Household Members: Other Household Members Other:: niece Housing: House Do you presently have visiting nurse or other home services: Yes Patient Tobacco Use Status: Current everyday Tobacco user Cigarettes Per Day: 2 Years Smoked: 50 plus e-Cigarette/Vaping Use: Never Used Second Hand Smoke Exposure: No service: Yes Current occupational status: retired Cognitive needs: No Hearing needs: Yes Vision needs: Yes Questionnaire Thrive Questionnaire Date Thrive assessed: 02/28/24 ANTONIA-7 AMB Questionnaire ANTONIA-7 Date ANTONIA - 7 assessed: 01/09/24 Source: Developed by Drs. Russell Crouch, Tania Raya, Graham Luna and colleagues, with an educational jordan from [employer]. Physical exam (Primary Care) Vital Signs: Last Vital Signs Pulse 93 03/09/24 11:53 BP 124/64 03/09/24 11:53 Pulse Ox 98 03/09/24 11:53 Oxygen Delivery Method Room Air 03/09/24 11:53 Tobacco/Smoking Status: Tobacco use Status Tobacco use date assessed 01/09/24 03/09/24 11:30 Patient Tobacco Use Status Current everyday Tobacco 03/09/24 11:30 e-Cigarette/Vaping Use Never Used 03/09/24 11:30 Thrive Assessment: Date of Thrive Assessment Date Thrive assessed 01/09/24 03/09/24 11:46 Coding Level of Care Code TCM Mod MDM <= 7 Days Diagnoses Hospital discharge follow-up Z09 Cellulitis of foot L03.119 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 Heart failure chronicity: chronic Heart failure type: combined systolic and diastolic Peripheral vascular disease I73.9 Chronic obstructive pulmonary disease, unspecified COPD type J44.9 COPD type: unspecified COPD Assessment & Plan Assessment & Plan (1) Hospital discharge follow-up: Code(s): Z09 - Encounter for follow-up examination after completed treatment for conditions other than malignant neoplasm Category: Medical Plan: Hospital discharge reviewed. Medications reconciled Repeat BMP today (2) Cellulitis of foot: Code(s): L03.119 - Cellulitis of unspecified part of limb Category: Medical Plan: Resolving. Signinficant PAD. Has appt with vascular (3) CHF (congestive heart failure): Code(s): I50.9 - Heart failure, unspecified Category: Medical Qualifiers: Heart failure chronicity: chronic Heart failure type: combined systolic and diastolic Qualified Code(s): I50.42 - Chronic combined systolic (congestive) and diastolic (congestive) heart failure Plan: Appears euvolemic on exam (4) Peripheral vascular disease: Code(s): I73.9 - Peripheral vascular disease, unspecified Category: Medical Plan: Vascular follow up. Continue cound care (5) COPD (chronic obstructive pulmonary disease): Code(s): J44.9 - Chronic obstructive pulmonary disease, unspecified Category: Medical Qualifiers: COPD type: unspecified COPD Qualified Code(s): J44.9 - Chronic obstructive pulmonary disease, unspecified Plan: stable without exacerbation Orders: Referrals Podiatry Referral L03.119 - Cellulitis of unspecified part of limb, Z89.429 - Acquired absence of other toe(s), unspecified side Medications: Changed From pregabalin 100 mg PO BID 180 caps 3RF To pregabalin 100 mg PO TID 270 caps 3RF Refilled cyclobenzaprine 10 mg PO BEDTIME PRN 270 tabs 3RF muscle spasm
[2024-03-09 11:53] VITALS: BP 124/64; PULSE 93; O2SAT 98
== END 2024-03-09 12:22 | disposition home or self-care (01) ==
PROVIDERS: PCP Internal Medicine; Visit Provider Internal Medicine
DX: I50.42 Chronic combined systolic (congestive) and diastolic (congestive) heart failure (principal); I73.9 Peripheral vascular disease, unspecified; J44.9 Chronic obstructive pulmonary disease, unspecified; Z09 Encounter for follow-up examination after completed treatment for conditions other than malignant neoplasm; L03.119 Cellulitis of unspecified part of limb

== ENCOUNTER → 2024-03-09 11:45 | Outpatient (BNVA) | payer MEDICARE, SELFPAY | PROVIDERS: PCP Internal Medicine; Visit Provider Internal Medicine | DX: Z09 Encounter for follow-up examination after completed treatment for conditions other than malignant neoplasm (principal); L03.119 Cellulitis of unspecified part of limb; I50.42 Chronic combined systolic (congestive) and diastolic (congestive) heart failure; I73.9 Peripheral vascular disease, unspecified; J44.9 Chronic obstructive pulmonary disease, unspecified; E11.9 Type 2 diabetes mellitus without complications; Z99.81 Dependence on supplemental oxygen; I25.10 Atherosclerotic heart disease of native coronary artery without angina pectoris; Z79.899 Other long term (current) drug therapy; Z89.429 Acquired absence of other toe(s), unspecified side | CPT/HCPCS: 99495 ==

== ENCOUNTER 2024-03-09 12:27 | Outpatient (REF) | payer MEDICARE, SELFPAY ==
[2024-03-09 14:31] LABS: Anion Gap 14 (12-20); Blood Urea Nitrogen 29 mg/dL (9-16); Calcium 8.9 mg/dL (8.4-10.2); Carbon Dioxide 29 mmol/L (22-29); Chloride 99 mmol/L (96-108); Estimated Glomerular Filt Rate 54; Glucose Random 143 mg/dL (60-115); Sodium 138 mmol/L (135-145)
== END 2024-03-09 12:28 | disposition home or self-care (01) ==
LOC: HO.WFDLDS 12:27
PROVIDERS: Visit Provider Hospitalist
DX: E86.0 Dehydration (principal)
CPT/HCPCS: 36415; 80048

== ENCOUNTER 2024-03-10 13:11 | Outpatient (AMB) | payer MEDICARE, SELFPAY ==
[2024-03-10 13:14] VITALS: BP 120/74; PULSE 103; O2SAT 98; BMI 31.8
--- NOTE | 2024-03-10 13:14 | A.OFFVIS_ITS ---
Vital Signs 03/10/24 13:14 Height 5 ft 11 in Weight 228 lb 6 oz BMI 31.8 BP 120/74 Blood Pressure Location Lt brachial Position Sitting Pulse 103 H Pulse Source Pulse Oximeter Pulse Oximetry (%) 98 Oxygen Delivery Method Room Air Intake Visit Reasons: COPD/PFT FU Allergies lemon Allergy (Verified 03/10/24 13:22) Anaphylaxis morphine Allergy (Verified 03/10/24 13:22) Anaphylaxis vancomycin Allergy (Verified 03/10/24 13:22) Chest Pain HPI HPI COPD/PFT FU: Details: Russell is a pleasant 79 year old male, current minimal smoker, with 100 pack year history, with underlying COPD on 2L supplemental oxygen, BUTCH noncompliant with CPAP, CHF, HTN, HLD, AAA, GERD, and PVD. He is accompanied by his nephew, ambulating with a walker. He reports longstanding history of COPD currently managed on albuterol neb/MDI BID with moderate effect. He continues to report dyspnea on exertion and occasional productive cough with white sputum. He reports using 2.5-3L at rest and 4 L with exertion. Has a concentrator at home. He also notes prior diagnosis of BUTCH, unknown severity, however could not tolera te CPAP therapy and is not interested in reinitiating. At the last visit, he was started on Trelegy with moderate improvement in symptoms. He was also sent for overnight oximetry sent to [facility], however he is not a patient in their system. He also notes this is where he has obtained supplemental oxygen through. He presents requesting tanks of supplemental oxygen for travel. Of note, patient previously under the care of [facility] in [place], will request records. [facility] Social History (Updated 03/10/24 @ 13:23 by Katrin Marsh [facility]) Household Members: Other Household Members Other:: niece Housing: House Do you presently have visiting nurse or other home services: Yes Patient Tobacco Use Status: Current everyday Tobacco user Cigarettes Per Day: 2 Years Smoked: 50 plus e-Cigarette/Vaping Use: Never Used Second Hand Smoke Exposure: No service: Yes Current occupational status: retired Cognitive needs: No Hearing needs: Yes Vision needs: Yes Review of Systems Const Denies chills, Denies excessive sweating, Denies fever(s), Denies headache(s) and Denies night sweats Eyes Denies dry eyes, Denies irritation and Denies itchy eyes ENT Reports Normal hearing present, Denies headache(s), Denies nasal congestion, Denies nasal discharge, Denies post nasal drip and Denies sore throat Card Denies chest pain, Denies chest pain at rest, Denies chest pain with activity, Denies claudication, Denies orthopnea and Denies paroxysmal nocturnal dyspnea Resp Denies chest congestion, Denies excessive phlegm production, Denies pain on inspiration, Denies pain with cough, Denies stridor and Denies wheezing Musc Denies myalgias Neuro Reports Normal hearing present and Denies headache(s) Endo Denies excessive sweating Ken/Lymph Denies lymphadenopathy Aller/Immun Denies itchy eyes, Denies seasonal rhinorrhea and Denies wheezing Physical Exam Vital Signs: Last Vital Signs Pulse 103 H 03/10/24 13:14 BP 120/74 03/10/24 13:14 Pulse Ox 98 03/10/24 13:14 Oxygen Delivery Method Room Air 03/10/24 13:14 BMI result Body Mass Index 31.8 Const General: cooperative, healthy appearing, comfortable, no acute distress, well developed and alert Nutritional Appearance: obese Orientation/consciousness: patient oriented x3 HEENT Head: Yes normal to inspection, Yes normocephalic and Yes atraumatic Ears: hearing grossly normal bilaterally and external ears normal Eyes General: appearance normal, both eyes and all related structures Eyelids: Yes eyelids normal Sclerae: sclerae normal EOM: EOMs intact bilaterally Neck Neck: Yes normal visual inspection and Yes no lymphadenopathy Lymphatic: no lymphadenopathy noted Chest Chest palpation & inspection: normal inspection of the chest Resp Effort & Inspection: normal respiratory effort, able to speak in complete sentences, no audible wheezes, no cough, no stridor, not tachypneic, no tripod positioning and no use of accessory muscles Auscultation: wheezes (faint) Cardio Jugular venous distension: no JVD Rate: regular rate Rhythm: regular rhythm Skin Other: warm, dry Neuro General: patient oriented x3 Cranial nerves: Yes Normal hearing present Cognition (Neuro): normal cognition Psych Appearance: grossly normal and well kempt Speech and movement: Normal speech and movement present and Clear speech present Affect: normal affect Attitude: cooperative Thought process: Normal thought process present Thought content: Normal thought content present Insight: Good insight present (Psych) Judgement: Good judgement present (Psych) Assessment & Plan Assessment & Plan (1) COPD (chronic obstructive pulmonary disease): Code(s): J44.9 - Chronic obstructive pulmonary disease, unspecified Category: Medical Qualifiers: COPD type: unspecified COPD Qualified Code(s): J44.9 - Chronic obstructive pulmonary disease, unspecified (2) Nicotine dependence, cigarettes, uncomplicated: Code(s): F17.210 - Nicotine dependence, cigarettes, uncomplicated Category: Medical Plan Will send prednisone for worsening dyspnea and faint expiratory wheezes on exam. Advised to continue to use Trelegy, Order for PFT entered however there were issues scheduling, will enter order. Attempted 6MWT, walked 50 yards before patient needed to rest due to dyspnea and weakness, lowest 93%, recovered to 99%, max hr 103. Unfortunately unable to thoroughly assess due to difficulties with ambulation, however patient did not desaturate. Overnight oximetry reportedly performed, however when office called, Sundar states patient not in the system. Will reach out to [facility] to see if order was sent there. Patient poor historian and family states, dyspneic episodes may be related to anxiety. Will attempt to obtain records from prior pulmonary provider. Patient's family also states patient has been more confused lately, will send for ABGs given prior h/o of severe BUTCH and noncompliant with CPAP. All questions were answered and patient is in agreement of plan. Will follow up in 4-6 weeks or sooner if needed. Orders: Orders ABG 03/10/24 J44.9 - Chronic obstructive pulmonary disease, unspecified Medications: New prednisone see taper instructions; 40 mg Daily x3 days, 30 mg daily x3 days, 20 mg daily x3 days, 10 mg daily x3 days 10 mg PO DIRECTED 30 tabs 0RF Coding Level of Care Code Est Pt Level 4 (60403) Diagnoses Chronic obstructive pulmonary disease, unspecified COPD type J44.9 COPD type: unspecified COPD Nicotine dependence, cigarettes, uncomplicated F17.210
== END 2024-03-10 14:17 | disposition home or self-care (01) ==
PROVIDERS: PCP Internal Medicine; Visit Provider Nurse Practitioner Family
DX: J44.9 Chronic obstructive pulmonary disease, unspecified (principal); F17.210 Nicotine dependence, cigarettes, uncomplicated
CPT/HCPCS: 99214

== ENCOUNTER → 2024-03-10 13:11 | Outpatient (BNVA) | payer MEDICARE, SELFPAY | PROVIDERS: PCP Internal Medicine; Visit Provider Nurse Practitioner Family | DX: J44.9 Chronic obstructive pulmonary disease, unspecified (principal); G47.33 Obstructive sleep apnea (adult) (pediatric); F17.210 Nicotine dependence, cigarettes, uncomplicated; Z99.81 Dependence on supplemental oxygen | CPT/HCPCS: 99212 ==

== ENCOUNTER 2024-03-22 11:48 | Outpatient (REF) | payer MEDICARE, SELFPAY ==
[2024-03-22 12:20] LABS: ABG Refer to POC result
[2024-03-22 12:25] LABS: ABG Base Excess 5.6 mmol/L; ABG pCO2 45 mmHg (32-45); ABG pH 7.43 (7.35-7.45); ABG pO2 71 mmHg (83-108)
[2024-03-22 12:26] LABS: ABG HCO3 30 mmol/L (22-26)
== END 2024-03-22 11:49 | disposition home or self-care (01) ==
LOC: HO.LAB 11:48
PROVIDERS: PCP Internal Medicine; Visit Provider Nurse Practitioner Family
DX: J44.9 Chronic obstructive pulmonary disease, unspecified (principal)
CPT/HCPCS: 82803

== ENCOUNTER 2024-03-28 10:33 | Emergency (ER) | payer MEDICARE, SELFPAY ==
--- NOTE | ~2024-03-28 | CT_ITS ---
CLINICAL HISTORY: Chest pain, elevated D-dimer, abnormal x-ray CT angiography chest with contrast. 3D Postprocessing. Comparison: CT/[place]/SR - CT ANGIO CHEST AORTA - 12/31/23 21:53 EDT Findings: Normal heart size. Moderate coronary artery calcification. There is elongation of the thoracic aorta. There is no aneurysm or dissection. There is moderate atherosclerotic change including foci of ulcerative plaque at the level of the aortic arch, similar to the prior study. No acute pulmonary embolus. The visualized thyroid and mediastinum are unremarkable. Mild pulmonary emphysema, predominantly paraseptal. No consolidation or pleural effusion. Small focus of ground-glass opacity and nodularity within the left upper lobe (7, 181-198). Prior cholecystectomy. Pneumobilia is present. There is a left kidney cyst. There is colonic diverticulosis. Note is made that evaluation of the upper abdomen is moderately limited by artifact. No acute fractures. IMPRESSION: 1. Evaluation for pulmonary artery embolism is limited by contrast phase. No central pulmonary embolus. 2. There is a small focus of infiltrate within the left upper lobe. This document has been electronically signed by: Lizbet Pollard MD on 03/28/2024 13:57:14
--- NOTE | ~2024-03-28 | US_ITS ---
CLINICAL HISTORY: Pain, R O DVT. Right lower extremity duplex venous Doppler Comparison: None Technique: Grayscale/Color/Duplex Doppler sonographic evaluation of the deep venous system within the right lower extremity. Findings: Right lower extremity Common femoral vein: Patent bilaterally CFV/GSV junction: Patent Femoral vein: Patent Popliteal vein: Patent Infrapopliteal veins: Patent where seen Soft tissue: No focal abnormality Impression: 1. Negative for right lower extremity DVT. 2. No Callahan's cyst This document has been electronically signed by: Adriel Floyd MD on 03/28/2024 12:38:21
--- NOTE | ~2024-03-28 | XR_ITS ---
CLINICAL HISTORY: Chest pain Chest radiograph, 1 view Comparison: CR/SR - XR CHEST 1V - 01/11/24 22:12 EDT CR/VA/SR - XR CHEST 1V - 12/31/23 20:20 EDT Findings: The heart is not enlarged. The mediastinum is prominent. Pulmonary vascularity is unremarkable. Possible mild airspace opacities within the right upper lung zone. No other focal consolidation or pleural effusion. No pneumothorax. IMPRESSION: 1. Prominent mediastinum. Consider further evaluation with CT angiography of the chest if there is a clinical concern for aortic dissection. 2. Possible mild right apical airspace disease. Lungs are otherwise clear. This document has been electronically signed by: Kt Ward DO on 03/28/2024 12:10:01
--- NOTE | 2024-03-28 10:37 | ECG_ITS ---
Test Reason : CHEST PAIN Blood Pressure : / mmHG Vent. Rate : 071 BPM Atrial Rate : 071 BPM P-R Int : 242 ms QRS Dur : 178 ms QT Int : 428 ms P-R-T Axes : 077 -54 010 degrees QTc Int : 465 ms Sinus rhythm with 1st degree A-V block Right bundle branch block Left anterior fascicular block Bifascicular block Abnormal ECG When compared with ECG of 27-FEB-2024 18:29, Significant changes have occurred Referred By: Generic ED Physician Electronically Signed By:VISHAL SARAH MD
[2024-03-28 10:39] VITALS: BP 114/75; PULSE 80; O2SAT 98
[2024-03-28 10:42] VITALS: BP 116/56; PULSE 68; RESP 20; TEMP 36.9; O2SAT 97; BMI 32.9
--- NOTE | 2024-03-28 11:16 | ED.CHESTPAIN ---
HPI - Chest Pain General Chief Complaint: Chest Pain Stated Complaint: SOB W/CP THIS AM,BLE/PURPLE X WKS PER EMS Time Seen by Provider: 03/28/24 10:49 Source: patient, EMS and old records reviewed Mode of arrival: EMS Limitations: no limitations History of Present Illness ED Provider: DR. Sales HPI narrative: 79-year-old male with PMH significant for CHF, COPD, 2 L home supplemental O2, VAD s/p right great toe amputation, AAA, paroxysmal atrial fibrillation on Xarelto, HTN, peripheral neuropathy, BPH who presented to ED by ambulance for evaluation of left-sided chest pain describes the pain as localized to the left side of the chest as a heaviness on the left side of the chest, no other associated symptoms patient took 2 nitro sublingual with partial relief of the symptoms patient took 2 aspirin pills. Currently patient has no pain the pain started at 05:00. Patient also is complaining of right ankle pain radiating to the light calf area. Related Data Home Medications ?Medication ?Instructions ?Recorded ?Confirmed atorvastatin 40 mg tablet 40 mg PO DAILY 01/09/24 03/03/24 celecoxib 100 mg capsule 200 mg PO BEDTIME 01/09/24 03/03/24 clopidogrel 75 mg tablet 75 mg PO DAILY 01/09/24 03/03/24 dexlansoprazole 60 mg 60 mg PO DAILY 01/09/24 03/03/24 capsule,biphase delayed release famotidine 20 mg tablet 20 mg PO DAILY 01/09/24 03/03/24 furosemide 40 mg tablet 40 mg PO DAILY 01/09/24 03/03/24 magnesium 250 mg tablet 250 mg PO DAILY 01/09/24 03/03/24 pantoprazole 40 mg tablet,delayed 40 mg PO DAILY@0630 01/09/24 03/03/24 release tamsulosin 0.4 mg capsule 0.8 mg PO DAILY 01/09/24 03/03/24 lisinopril 5 mg tablet 5 mg PO DAILY 02/27/24 03/03/24 Previous Rx's ?Medication ?Instructions ?Recorded Oxygen Home Use #1 ea 12/31/23 albuterol sulfate 90 mcg/actuation 2 puff inhalation Q6H PRN 12/31/23 aerosol inhaler shortness of breath or wheezing #8.5 grams nebulizer accessories #1 ea 12/31/23 rivaroxaban 10 mg tablet (Xarelto) 10 mg PO DAILY #90 tabs 01/09/24 fluticasone fur. 200 mcg-umeclid 1 inh inhalation DAILY #60 ea 01/13/24 62.5 mcg-vilant 25 mcg inhalat.powder (Trelegy Ellipta) doxycycline monohydrate 100 mg 100 mg PO Q12H #10 caps 03/01/24 capsule triamcinolone acetonide 0.5 % 1 appl topical BID #15 grams 03/01/24 topical cream cyclobenzaprine 10 mg tablet 10 mg PO BEDTIME PRN muscle spasm 03/09/24 #270 tabs pregabalin 100 mg capsule 100 mg PO TID #270 caps 03/09/24 prednisone 10 mg tablet 10 mg PO DIRECTED #30 tabs 03/10/24 tramadol 50 mg tablet 50 mg PO Q6H PRN pain 28 days #112 03/27/24 tabs doxycycline hyclate 100 mg tablet 100 mg PO BID #14 tabs 03/28/24 Allergies Allergy/AdvReac Type Severity Reaction Status Date / Time lemon Allergy Anaphylaxis Verified 03/28/24 10:47 morphine Allergy Anaphylaxis Verified 03/28/24 10:47 vancomycin Allergy Chest Pain Verified 03/28/24 10:47 Review of Systems Review of Systems: All other systems are reviewed and are negative Constitutional: Reports as per HPI and Reports no additional constitutional complaints Eyes: Reports as per HPI and Reports no additional eye complaints Reports system reviewed and no additional complaints, except as documented Cardiovascular: Reports as per HPI and Reports no additional cardiovascular complaints Respiratory: Reports as per HPI and Reports no additional respiratory complaints Gastrointestinal: Reports as per HPI and Reports no additional gastrointestinal complaints Genitourinary: Reports no additional female genitourinary complaints Musculoskeletal: Reports no additional musculoskeletal complaints Skin/Breast: Reports system reviewed and no additional complaints, except as docu Psychiatric: Reports no additional psychiatric complaints Endocrine: Reports no additional endocrine complaints Hematologic/Lymphatic: Reports no additional hematologic/lymphatic complaints Allergic/Immunologic: Reports no additional allergic/immunologic complaints Reports system reviewed and no additional complaints, except as documented and Reports Abnormal speech present [facility] Social History Social History Household Members: Other Household Members Other:: niece Housing: House Do you presently have visiting nurse or other home services: Yes Patient Tobacco Use Status: Current everyday Tobacco user Cigarettes Per Day: 2 Years Smoked: 50 plus Smoked in Last 30 Days: Yes e-Cigarette/Vaping Use: Never Used Second Hand Smoke Exposure: No Use of substances other than those prescribed or required for medical reasons: No Advance Directives: No Advance Directives Information Provided: No Do you have a plan to hurt others: No Plan service: Yes Current occupational status: retired Cognitive needs: No Hearing needs: Yes Vision needs: Yes Physical Exam Vital Signs: Vital Signs: Last Vital Signs Temp 98.4 F 03/28/24 10:42 Pulse 62 03/28/24 12:41 Resp 12 03/28/24 12:41 BP 115/52 L 03/28/24 12:41 Pulse Ox 93 03/28/24 12:41 O2 Del Method Nasal Cannula 03/28/24 12:41 O2 Flow Rate 3 03/28/24 12:41 Oxygen Flow Rate 2 03/28/24 10:42 BMI result Body Mass Index 32.9 Vital signs have been reviewed and appear to be correct. Blood pressure elevated. Heart rate normal. Respiratory rate normal. Temperature normal. Oxygen saturation normal. Appearance: Alert. Oriented X3. No acute distress. Head: Normal external exam. Normocephalic. Atraumatic. No Leyva signs noted. No raccoon eyes noted Eyes: PERRLA. EOMI. Conjunctiva and sclera normal. Eyelids normal. ENT: TM's Normal. Pharynx normal. Uvula midline. Moist mucous membranes. No trismus noted. No drooling noted. No muffled voice noted. Neck: Normal inspection. Neck supple. FROM. No adenopathy. Thyroid Normal. No meningeal signs. No neck mass noted. CVS: Normal heart rate and rhythm. Heart sound normal. No murmurs noted. Pulses normal throughout. Respiratory: No respiratory distress. Painless inspiration. Breath sounds normal. No wheezes/rales/rhonchi noted. Chest nontender. No accessory muscle usage noted or decreased air movement noted. Abdomen: Soft and nontender. Bowel sounds normal in all 4 quadrants. No distention noted. No organomegaly noted. No visible injury noted. Back: No CVA tenderness. Full range of motion noted. Skin: Skin warm and dry. Normal skin color. Normal skin turgor. No rashes/lesions/lacerations noted. Extremities: No lower extremity edema. Extremities exhibit normal range of motion. Extremities nontender. Neuro: Oriented X 3. Cranial nerve exam: II-XII are grossly intact No motor deficit. No sensory deficit. Reflexes normal. Course Reevaluation(s) Reevaluation #1: Chest pain this morning took 2 nitro with partial relief of the chest pain, EKG shows minimal EKG changes from prior EKG but no ischemic change, troponin is negative x2, CTA is limited but ruled out central pulmonary embolism, left upper lobe infiltrate on the CT. Will discharge on doxycycline. Negative for right lower extremity DVT. Time: 15:03 Medications Administered Discontinued Medications Generic Name Dose Route Start Last Admin Trade Name Freq PRN Reason Stop Dose Admin Iohexol 100 ml 03/28/24 13:26 03/28/24 13:26 Iohexol 350 Mg/Ml 100 Ml Infus..Btl IV 03/28/24 13:27 65 ml ONCE ONE Administration Medical Decision Making Differential Diagnosis Differential Diagnoses: The differential diagnosis associated with the presentation includes (ACS, pulmonary embolism, pneumonia, pneumothorax, pleural effusion, electrolyte derangement, severe anemia.) Admission/Observation Consideration of admission/observation: Escalation of care including admission/observation considered Lab Data MDM Lab Attestation statement: I reviewed the patient's lab results. 03/28/24 11:30 03/28/24 11:31 Labs: Lab Results 03/28/24 03/28/24 03/28/24 Range/Units 11:28 11:30 11:31 WBC 7.7 (4.8-10.8) X10*3/uL RBC 4.02 L (4.60-5.80) X10*6/uL Hgb 12.1 L (14.0-18.0) g/dl Hct 36.6 L (42.0-52.0) % MCV 91.0 (80.0-98.0) fL MCH 30.1 (27.0-33.0) pg MCHC 33.1 (31.0-36.0) g/dl RDW 12.7 (11.0-16.0) % Plt Count 196 (160-400) X10*3/uL MPV 10.8 (9.4-12.4) fL Immature Gran % (Auto) 0.5 H (0.0-0.4) % Neut % (Auto) 55.1 (45-73) % Lymph % (Auto) 24.8 (20-40) % [place] % (Auto) 9.3 (2-11) % Eos % (Auto) 9.4 H (0-4) % Baso % (Auto) 0.9 (0-2) % Lymph # (Auto) 1.9 (1.2-4.9) X10*3/uL [place] # (Auto) 0.7 (0.1-1.2) X10*3/uL Eos # (Auto) 0.7 H (0.0-0.4) X10*3/uL Baso # (Auto) 0.1 (0.0-0.2) X10*3/uL Abs Immat Gran (auto) 0.04 H (0.00-0.03) X10*3/uL Absolute Neuts (auto) 4.2 (2.0-8.3) x10*3/uL Absolute Nucleated RBC 0.000 (0.0-0.012) X10*3/uL Nucleated RBC % (auto) 0.0 (0.0-0.2) /100WBC D-Dimer High Sensitivty 358 NG/ML Sodium 138 (135-145) mmol/L Potassium 3.9 (3.3-5.1) mmol/L Chloride 102 (96-108) mmol/L Carbon Dioxide 30 H (22-29) mmol/L Anion Gap 10 L (12-20) BUN 23 H (9-16) mg/dL Creatinine 1.20 (0.5-1.4) mg/dL Estim Creat Clear Calc 62.1 Estimated GFR 58 Random Glucose 139 H (60-115) mg/dL Calcium 8.7 (8.4-10.2) mg/dL Total Bilirubin 0.4 (0.0-1.0) mg/dL Direct Bilirubin 0.2 (0.0-0.5) mg/dL AST 25 (5-37) U/L ALT 22 (0-40) U/L Alkaline Phosphatase 111 (39-117) U/L Troponin I High Sens 2.8 (<3.5-35.0) ng/L B-Natriuretic Peptide 10 (<100) pg/mL Total Protein 6.2 L (6.5-8.0) g/dL Albumin 3.4 L (3.5-5.0) g/dL Lipase 7 L (8-78) U/L Urine Color Urine Appearance Urine pH (5.0-9.0) Ur Specific [place] (1.005-1.025) Urine Protein (Neg-Trace) mg/dL Urine Glucose (UA) (Negative) mg/dL Urine Ketones (Negative) mg/dL Urine Blood (Negative) Urine Nitrite (Negative) Ur Leukocyte Esterase (Negative) Influenza Type A (PCR) NEGATIVE (Negative) Influenza Type B (PCR) NEGATIVE (Negative) RSV RNA Qual (PCR) NEGATIVE (Negative) SARS-CoV-2 RNA (RT-PCR) NEGATIVE (Negative) 03/28/24 Range/Units 11:52 WBC (4.8-10.8) X10*3/uL RBC (4.60-5.80) X10*6/uL Hgb (14.0-18.0) g/dl Hct (42.0-52.0) % MCV (80.0-98.0) fL MCH (27.0-33.0) pg MCHC (31.0-36.0) g/dl RDW (11.0-16.0) % Plt Count (160-400) X10*3/uL MPV (9.4-12.4) fL Immature Gran % (Auto) (0.0-0.4) % Neut % (Auto) (45-73) % Lymph % (Auto) (20-40) % [place] % (Auto) (2-11) % Eos % (Auto) (0-4) % Baso % (Auto) (0-2) % Lymph # (Auto) (1.2-4.9) X10*3/uL [place] # (Auto) (0.1-1.2) X10*3/uL Eos # (Auto) (0.0-0.4) X10*3/uL Baso # (Auto) (0.0-0.2) X10*3/uL Abs Immat Gran (auto) (0.00-0.03) X10*3/uL Absolute Neuts (auto) (2.0-8.3) x10*3/uL Absolute Nucleated RBC (0.0-0.012) X10*3/uL Nucleated RBC % (auto) (0.0-0.2) /100WBC D-Dimer High Sensitivty NG/ML Sodium (135-145) mmol/L Potassium (3.3-5.1) mmol/L Chloride (96-108) mmol/L Carbon Dioxide (22-29) mmol/L Anion Gap (12-20) BUN (9-16) mg/dL Creatinine (0.5-1.4) mg/dL Estim Creat Clear Calc Estimated GFR Random Glucose (60-115) mg/dL Calcium (8.4-10.2) mg/dL Total Bilirubin (0.0-1.0) mg/dL Direct Bilirubin (0.0-0.5) mg/dL AST (5-37) U/L ALT (0-40) U/L Alkaline Phosphatase (39-117) U/L Troponin I High Sens (<3.5-35.0) ng/L B-Natriuretic Peptide (<100) pg/mL Total Protein (6.5-8.0) g/dL Albumin (3.5-5.0) g/dL Lipase (8-78) U/L Urine Color Yellow Urine Appearance Clear Urine pH 5.5 (5.0-9.0) Ur Specific [place] <= 1.005 (1.005-1.025) Urine Protein Negative (Neg-Trace) mg/dL Urine Glucose (UA) Negative (Negative) mg/dL Urine Ketones Negative (Negative) mg/dL Urine Blood Negative (Negative) Urine Nitrite Negative (Negative) Ur Leukocyte Esterase Negative (Negative) Influenza Type A (PCR) (Negative) Influenza Type B (PCR) (Negative) RSV RNA Qual (PCR) (Negative) SARS-CoV-2 RNA (RT-PCR) (Negative) Independent Interpretation I performed an independent interpretation of an: Ultrasound (Right lower extremity ultrasound: No DVT. ) and CT Scan (CT angio:. Evaluation for pulmonary artery embolism is limited by contrast phase. No central pulmonary embolus. 2. There is a small focus of infiltrate within the left upper lobe.) Radiology Impression Discussion of test interpretation with radiology: I have reviewed the radiologist's reading. Discharge Plan Discharge Clinical Impression: Chest pain, Pneumonia Patient Disposition: Home, Self-Care Instructions: Pneumonia (ED) Prescriptions: New doxycycline hyclate 100 mg tablet 100 mg PO BID Qty: 14 0RF No Action tramadol 50 mg tablet 50 mg PO Q6H PRN (Reason: pain) 28 Days Qty: 112 0RF (DME) Oxygen Home Use Kit See Rx Instructions .Route Qty: 1 0RF Rx Instructions: 2 L during daytime and 4 L at the time of sleep (DME) nebulizer accessories Kit See Rx Instructions .Route Qty: 1 0RF Rx Instructions: As directed albuterol sulfate 90 mcg/actuation HFA aerosol inhaler 2 puff inhalation Q6H PRN (Reason: shortness of breath or wheezing) Qty: 8.5 0RF lisinopril 5 mg tablet 5 mg PO DAILY doxycycline monohydrate 100 mg Capsule 100 mg PO Q12H Qty: 10 0RF triamcinolone acetonide 0.5 % cream 1 appl topical BID Qty: 15 0RF Rx Instructions: apply to right lower leg famotidine 20 mg tablet 20 mg PO DAILY atorvastatin 40 mg tablet 40 mg PO DAILY clopidogrel 75 mg tablet 75 mg PO DAILY tamsulosin 0.4 mg capsule 0.8 mg PO DAILY furosemide 40 mg tablet 40 mg PO DAILY pantoprazole 40 mg tablet,delayed release (DR/EC) 40 mg PO DAILY@0630 celecoxib 100 mg capsule 200 mg PO BEDTIME magnesium 250 mg tablet 250 mg PO DAILY dexlansoprazole 60 mg capsule,biphase delayed releas 60 mg PO DAILY Xarelto 10 mg tablet 10 mg PO DAILY Qty: 90 3RF Rx Instructions: for 35 days Trelegy Ellipta 200-62.5-25 mcg blister with device 1 inh inhalation DAILY Qty: 60 6RF cyclobenzaprine 10 mg tablet 10 mg PO BEDTIME PRN (Reason: muscle spasm) Qty: 270 3RF pregabalin 100 mg capsule 100 mg PO TID Qty: 270 3RF prednisone 10 mg tablet 10 mg PO DIRECTED Qty: 30 0RF Rx Instructions: see taper instructions; 40 mg Daily x3 days, 30 mg daily x3 days, 20 mg daily x3 days, 10 mg daily x3 days Referrals: Kiana Carrillo MD [Primary Care Provider] - Print Language: Thai
[2024-03-28 11:44] LABS: MANUAL DIFF FLAG NO
[2024-03-28 11:46] LABS: Basophils Absolute Auto 0.1 X10*3/uL (0.0-0.2); Basophils Percent Auto 0.9 % (0-2); Eosinophils Absolute Auto 0.7 X10*3/uL (0.0-0.4); Eosinophils Percent Auto 9.4 % (0-4); Hematocrit 36.6 % (42.0-52.0); Hemoglobin 12.1 g/dl (14.0-18.0); Imm Gran Abs Auto 0.04 X10*3/uL (0.00-0.03); Imm Gran Pct Auto 0.5 % (0.0-0.4); Lymphocytes Absolute Auto 1.9 X10*3/uL (1.2-4.9); Lymphocytes Percent Auto 24.8 % (20-40); Mean Corpuscular HGB Conc 33.1 g/dl (31.0-36.0); Mean Corpuscular Hemoglobin 30.1 pg (27.0-33.0); Mean Platelet Volume 10.8 fL (9.4-12.4); Monocytes Absolute Auto 0.7 X10*3/uL (0.1-1.2); Monocytes Percent Auto 9.3 % (2-11); Neutrophils Absolute Auto 4.2 x10*3/uL (2.0-8.3); Neutrophils Percent Auto 55.1 % (45-73); Platelet Count 196 X10*3/uL (160-400); Red Blood Count 4.02 X10*6/uL (4.60-5.80); Red Cell Distribution Width 12.7 % (11.0-16.0); White Blood Count 7.7 X10*3/uL (4.8-10.8)
[2024-03-28 11:52] LABS: D Dimer High Sensitivity 358 NG/ML
[2024-03-28 12:00] LABS: Alanine Aminotransferase 22 U/L (0-40); Albumin Level 3.4 g/dL (3.5-5.0); Alkaline Phosphatase 111 U/L (39-117); Anion Gap 10 (12-20); Aspartate Amino Transferase 25 U/L (5-37); Bilirubin Direct 0.2 mg/dL (0.0-0.5); Bilirubin Total 0.4 mg/dL (0.0-1.0); Blood Urea Nitrogen 23 mg/dL (9-16); Calcium 8.7 mg/dL (8.4-10.2); Carbon Dioxide 30 mmol/L (22-29); Chloride 102 mmol/L (96-108); Creatinine Clr Calc Pharmacy 62.1; Estimated Glomerular Filt Rate 58; Glucose Random 139 mg/dL (60-115); Lipase 7 U/L (8-78); Potassium 3.9 mmol/L (3.3-5.1); Sodium 138 mmol/L (135-145); Total Protein 6.2 g/dL (6.5-8.0)
[2024-03-28 12:00] LABS: Appearance Urine Clear; Color Urine Yellow; Glucose Urine UA Negative (Negative); Leukocyte Esterase Urine Negative (Negative); Nitrite Urine Negative (Negative); PH 5.5 (5.0-9.0); Specific Gravity - Urine <= 1.005 (1.005-1.025); Urine Blood Negative (Negative); Urine Ketones Negative (Negative); Urine Protein Negative (Neg-Trace)
[2024-03-28 12:05] LABS: B Type Natriuretic Peptide 10 pg/mL (<100)
[2024-03-28 12:08] LABS: Troponin-I High Sensitivity 2.8 ng/L (<3.5-35.0)
[2024-03-28 12:25] LABS: Influenza A PCR NEGATIVE (Negative); Influenza B PCR NEGATIVE (Negative); Resp Syncy Virus RNA Qual PCR NEGATIVE (Negative); SARS COV2 PCR INHOUSE NEGATIVE (Negative)
[2024-03-28 12:41] VITALS: BP 115/52; PULSE 62; RESP 12; O2SAT 93
[2024-03-28] MEDS: iohexoL 350 MG/ML 100 ML INFUS..BTL IV (13:26)
[2024-03-28 15:13] LABS: Troponin-I High Sensitivity < 2.7 ng/L (<3.5-35.0)
[2024-03-28 15:20] VITALS: BP 99/47; PULSE 62; RESP 20; TEMP 36.4; O2SAT 96
[2024-03-28] MEDS: Doxycycline Monohydrate 100 MG CAPSULE PO (15:23)
[2024-03-28 16:17] VITALS: BP 95/50; PULSE 62; RESP 20; TEMP 36.4; O2SAT 99
== END 2024-03-28 16:19 | disposition home or self-care (01) ==
PROVIDERS: Emergency Provider Emergency Medicine; PCP Internal Medicine
DX: J18.9 Pneumonia, unspecified organism (principal); R07.89 Other chest pain; R06.02 Shortness of breath; J44.9 Chronic obstructive pulmonary disease, unspecified; I10 Essential (primary) hypertension; R60.0 Localized edema; F17.210 Nicotine dependence, cigarettes, uncomplicated; Z79.01 Long term (current) use of anticoagulants; Z99.81 Dependence on supplemental oxygen; Z79.899 Other long term (current) drug therapy; Z03.818 Encounter for observation for suspected exposure to other biological agents ruled out
CPT/HCPCS: 0241U; 36415; 71045; 71275; 80048; 80076; 81003; 83690; 83880; 84484; 85025; 85379; 93005; 93971; 99285; Q9967

== ENCOUNTER → 2024-03-28 10:37 | Outpatient (BNV) | payer MEDICARE, SELFPAY | PROVIDERS: Emergency Provider Emergency Medicine; PCP Internal Medicine; Visit Provider Internal Medicine Cardiovascular Disease | DX: R94.31 Abnormal electrocardiogram [ECG] [EKG] (principal) | CPT/HCPCS: 93010 ==

== ENCOUNTER → 2024-03-28 11:14 | Outpatient (BNV) | payer MEDICARE, SELFPAY | PROVIDERS: Emergency Provider Emergency Medicine; PCP Internal Medicine; Visit Provider Radiology Diagnostic Radiology | DX: R91.8 Other nonspecific abnormal finding of lung field (principal); I25.84 Coronary atherosclerosis due to calcified coronary lesion; M79.661 Pain in right lower leg | CPT/HCPCS: 71045; 71275; 93971 ==

== ENCOUNTER 2024-03-29 14:12 | Inpatient (IN) | payer MEDICARE, SELFPAY ==
[2024-03-29] VITALS (8 sets, daily range): BP systolic 109–155; BP diastolic 53–81; PULSE 67–90; RESP 12–18; TEMP 36.3–36.6; O2SAT 97–99; BMI 32.9
--- NOTE | ~2024-03-29 | XR_ITS ---
EXAMINATION: XR CHEST CLINICAL INFORMATION: SOB COMPARISON: CTA chest 03/28/2024. TECHNIQUE: Frontal view of the chest was obtained. FINDINGS: Patient is mildly rotated to the right side. The lungs are hypoexpanded but clear. The heart size and pulmonary vascularity is normal. No gross bony abnormality seen. XR/XR chest 1V IMPRESSION: Unremarkable chest exam. Electronically signed by: Sim Read MD 03/29/2024 03:35 PM EST
--- NOTE | 2024-03-29 14:21 | ECG_ITS ---
Test Reason : CP Blood Pressure : / mmHG Vent. Rate : 072 BPM Atrial Rate : 000 BPM P-R Int : 000 ms QRS Dur : 142 ms QT Int : 448 ms P-R-T Axes : 000 -37 012 degrees QTc Int : 490 ms Normal sinus rhythm with 1st degree A-V block Left anterior fascicular block Right bundle branch block Abnormal ECG When compared with ECG of 28-MAR-2024 10:48, No significant changes seen Referred By: Generic ED Physician Electronically Signed By:VISHAL SARAH MD
--- NOTE | 2024-03-29 14:33 | PC.NURSE ---
Pt to Xray.
[2024-03-29 14:56] LABS: MANUAL DIFF FLAG NO
[2024-03-29 14:58] LABS: Basophils Absolute Auto 0.1 X10*3/uL (0.0-0.2); Basophils Percent Auto 0.9 % (0-2); Eosinophils Absolute Auto 0.7 X10*3/uL (0.0-0.4); Eosinophils Percent Auto 9.7 % (0-4); Hematocrit 34.2 % (42.0-52.0); Hemoglobin 11.3 g/dl (14.0-18.0); Imm Gran Abs Auto 0.03 X10*3/uL (0.00-0.03); Imm Gran Pct Auto 0.4 % (0.0-0.4); Lymphocytes Absolute Auto 1.4 X10*3/uL (1.2-4.9); Lymphocytes Percent Auto 19.7 % (20-40); Mean Corpuscular Volume 90.7 fL (80.0-98.0); Mean Platelet Volume 10.7 fL (9.4-12.4); Monocytes Absolute Auto 0.7 X10*3/uL (0.1-1.2); Monocytes Percent Auto 10.7 % (2-11); Neutrophils Absolute Auto 4.1 x10*3/uL (2.0-8.3); Neutrophils Percent Auto 58.6 % (45-73); Platelet Count 181 X10*3/uL (160-400); Red Blood Count 3.77 X10*6/uL (4.60-5.80); White Blood Count 6.9 X10*3/uL (4.8-10.8)
[2024-03-29 15:01] LABS: Venous Blood Gas Refer to POC result
[2024-03-29 15:02] LABS: VBG Base Excess 6.7 mmol/L; VBG HCO3 34 mmol/L (22-26); VBG pCO2 64 mmHg; VBG pH 7.33 (7.32-7.43); VBG pO2 143 mmHg
[2024-03-29 15:10] LABS: Anion Gap 10 (12-20); Blood Urea Nitrogen 24 mg/dL (9-16); Carbon Dioxide 31 mmol/L (22-29); Chloride 104 mmol/L (96-108); Creatinine Clr Calc Pharmacy 65.9; Estimated Glomerular Filt Rate > 60; Glucose Random 129 mg/dL (60-115); Potassium 3.9 mmol/L (3.3-5.1); Sodium 141 mmol/L (135-145)
--- NOTE | 2024-03-29 15:11 | ED_ITS ---
HPI - SOB/Dyspnea General Chief Complaint: Dyspnea Stated Complaint: CP,SOB Time Seen by Provider: 03/29/24 14:23 Source: patient History of Present Illness ED Provider: Denice ISABEL Narrative: 79-year-old male with past medical history of CHF, COPD presenting for shortness of breath. Patient was seen here yesterday for similar complaints was diagnosed with pneumonia. He was discharged on doxycycline however he represents today due to persistent/worsening symptoms. Patient denies chest pain, fevers, chills however he does endorse cough. Patient is on 2 L oxygen baseline however EMS had to bump him to 4 L in transport. Patient states that he is taking his doxycycline Related Data Home Medications ?Medication ?Instructions ?Recorded ?Confirmed atorvastatin 40 mg tablet 40 mg PO DAILY 01/09/24 03/03/24 celecoxib 100 mg capsule 200 mg PO BEDTIME 01/09/24 03/29/24 clopidogrel 75 mg tablet 75 mg PO DAILY 01/09/24 03/03/24 dexlansoprazole 60 mg 60 mg PO DAILY 01/09/24 03/29/24 capsule,biphase delayed release famotidine 20 mg tablet 20 mg PO DAILY 01/09/24 03/03/24 furosemide 40 mg tablet 40 mg PO DAILY 01/09/24 03/03/24 magnesium 250 mg tablet 250 mg PO DAILY 01/09/24 03/03/24 pantoprazole 40 mg tablet,delayed 40 mg PO DAILY@0630 01/09/24 03/29/24 release tamsulosin 0.4 mg capsule 0.8 mg PO DAILY 01/09/24 03/03/24 lisinopril 5 mg tablet 5 mg PO DAILY 02/27/24 03/29/24 fluticasone fur. 200 mcg-umeclid 1 ea inhalation DAILY 03/29/24 03/29/24 62.5 mcg-vilant 25 mcg inhalat.powder (Trelegy Ellipta) Previous Rx's ?Medication ?Instructions ?Recorded Oxygen Home Use #1 ea 12/31/23 albuterol sulfate 90 mcg/actuation 2 puff inhalation Q6H PRN 12/31/23 aerosol inhaler shortness of breath or wheezing #8.5 grams nebulizer accessories #1 ea 12/31/23 rivaroxaban 10 mg tablet (Xarelto) 10 mg PO DAILY #90 tabs 01/09/24 triamcinolone acetonide 0.5 % 1 appl topical BID #15 grams 03/01/24 topical cream cyclobenzaprine 10 mg tablet 10 mg PO BEDTIME PRN muscle spasm 03/09/24 #270 tabs pregabalin 100 mg capsule 100 mg PO TID #270 caps 03/09/24 prednisone 10 mg tablet 10 mg PO DIRECTED #30 tabs 03/10/24 tramadol 50 mg tablet 50 mg PO Q6H PRN pain 28 days #112 03/27/24 tabs doxycycline hyclate 100 mg tablet 100 mg PO BID #14 tabs 03/28/24 Allergies Allergy/AdvReac Type Severity Reaction Status Date / Time lemon Allergy Anaphylaxis Verified 03/29/24 14:55 morphine Allergy Anaphylaxis Verified 03/29/24 14:55 vancomycin Allergy Chest Pain Verified 03/29/24 14:55 Review of Systems 2 Review of Systems: Patient endorses shortness of breath Yes all other systems are reviewed and are negative PMFSH Social History Social History Household Members: Other Household Members Other:: niece Housing: House Do you presently have visiting nurse or other home services: Yes Patient Tobacco Use Status: Current everyday Tobacco user Cigarettes Per Day: 2 Years Smoked: 50 plus Smoked in Last 30 Days: Yes e-Cigarette/Vaping Use: Never Used Second Hand Smoke Exposure: No Use of substances other than those prescribed or required for medical reasons: No Advance Directives: No Advance Directives Information Provided: Yes Do you have a plan to hurt others: No Plan Nutrition Risks: No Nutritional Risk service: Yes Current occupational status: retired Cognitive needs: No Hearing needs: Yes Vision needs: Yes Physical Exam 2 Vital Signs: Vital Signs: Last Vital Signs Temp 97.9 F 03/29/24 20:08 Pulse 89 03/29/24 20:08 Resp 16 03/29/24 20:08 BP 117/54 L 03/29/24 20:08 Pulse Ox 98 03/29/24 20:08 O2 Del Method Nasal Cannula 03/29/24 20:08 O2 Flow Rate 2 03/29/24 20:08 BMI result Body Mass Index 32.9 Somnolent appearing male in no acute distress Diminished lung [place] bilaterally Normal S1-S2 regular rate and rhythm Mild bilateral lower extremity edema Medications Administered Generic Name Dose Route Start Last Admin Trade Name Corie PRN Reason Stop Dose Admin Doxycycline Hyclate 100 mg/ 250 mls @ 166.67 mls/hr 03/29/24 19:00 03/29/24 19:32 Sodium Chloride IV 166.67 mls/hr Q12H JESSICA Administration Discontinued Medications Generic Name Dose Route Start Last Admin Trade Name Dillanq PRN Reason Stop Dose Admin Albuterol/Ipratropium 6 ml 03/29/24 17:38 03/29/24 17:52 Albuterol/Iprat 2.5/0.5mg 3 Ml Ampul.Neb INHALE 03/29/24 17:39 6 ml ONCE ONE Administration Ceftriaxone Sodium 1 gm 03/29/24 17:39 03/29/24 18:56 Ceftriaxone Sodium 1 Gm Vial IVPUSH 03/29/24 17:40 1 gm ONCE ONE Administration Methylprednisolone Sodium Succinate 125 mg 03/29/24 17:38 03/29/24 18:21 Methylprednisolone Sod Succ 125 Mg/2 Ml Vial IVPUSH 03/29/24 17:39 125 mg ONCE ONE Administration Medical Decision Making Medical Decision Making [facility] Narrative: 79-year-old male presents for shortness of breath. I am concerned for the following; pneumonia, CHF exacerbation, COPD exacerbation, viral URI, COVID, flu -labs and imaging studies ordered -chest x-ray unremarkable; patient had a CTA chest performed yesterday that showed a small left upper lobe infiltrate -no signs of ischemia patient's EKG -labs notable for stable H&H, no white count, negative troponin, electrolytes within normal limits -no concern for hypercarbia on venous blood gas -duo nebs and steroids ordered; antibiotics ordered I consulted the on-call hospitalist who accepted the patient for admission Lab Data 03/29/24 14:50 03/29/24 14:50 Labs: Lab Results 03/29/24 03/29/24 03/29/24 Range/Units 14:50 14:51 14:56 WBC 6.9 (4.8-10.8) X10*3/uL RBC 3.77 L (4.60-5.80) X10*6/uL Hgb 11.3 L (14.0-18.0) g/dl Hct 34.2 L (42.0-52.0) % MCV 90.7 (80.0-98.0) fL MCH 30.0 (27.0-33.0) pg MCHC 33.0 (31.0-36.0) g/dl RDW 13.0 (11.0-16.0) % Plt Count 181 (160-400) X10*3/uL MPV 10.7 (9.4-12.4) fL Immature Gran % (Auto) 0.4 (0.0-0.4) % Neut % (Auto) 58.6 (45-73) % Lymph % (Auto) 19.7 L (20-40) % [place] % (Auto) 10.7 (2-11) % Eos % (Auto) 9.7 H (0-4) % Baso % (Auto) 0.9 (0-2) % Lymph # (Auto) 1.4 (1.2-4.9) X10*3/uL [place] # (Auto) 0.7 (0.1-1.2) X10*3/uL Eos # (Auto) 0.7 H (0.0-0.4) X10*3/uL Baso # (Auto) 0.1 (0.0-0.2) X10*3/uL Abs Immat Gran (auto) 0.03 (0.00-0.03) X10*3/uL Absolute Neuts (auto) 4.1 (2.0-8.3) x10*3/uL Absolute Nucleated RBC 0.000 (0.0-0.012) X10*3/uL Nucleated RBC % (auto) 0.0 (0.0-0.2) /100WBC VBG pH 7.33 (7.32-7.43) VBG pCO2 64 mmHg VBG pO2 143 mmHg VBG HCO3 34 H (22-26) mmol/L VBG O2 Saturation 99.0 % VBG Base Excess 6.7 mmol/L Sodium 141 (135-145) mmol/L Potassium 3.9 (3.3-5.1) mmol/L Chloride 104 (96-108) mmol/L Carbon Dioxide 31 H (22-29) mmol/L Anion Gap 10 L (12-20) BUN 24 H (9-16) mg/dL Creatinine 1.13 (0.5-1.4) mg/dL Estim Creat Clear Calc 65.9 Estimated GFR > 60 Random Glucose 129 H (60-115) mg/dL Lactic Acid 0.8 (0.5-2.0) mmol/L Calcium 8.0 L D (8.4-10.2) mg/dL Troponin I High Sens < 2.7 (<3.5-35.0) ng/L Urine Color Urine Appearance Urine pH (5.0-9.0) Ur Specific [place] (1.005-1.025) Urine Protein (Neg-Trace) mg/dL Urine Glucose (UA) (Negative) mg/dL Urine Ketones (Negative) mg/dL Urine Blood (Negative) Urine Nitrite (Negative) Ur Leukocyte Esterase (Negative) Urine RBC (0-2) /HPF Urine WBC (0-5) /HPF Ur Squamous Epith Cells (0-2) /HPF Urine Bacteria (None Seen) Hyaline Casts (0-2) /LPF Urine Opiates Screen (Not Detect) Ur Buprenorphine Scrn (Not Detect) ng/mL Ur Oxycodone Screen (Not Detect) ng/mL Urine Methadone Screen (Not Detect) ng/mL Urine Fentanyl Screen (Not Detect) Ur Barbiturates Screen (Not Detect) Ur Phencyclidine Scrn (Not Detect) Ur Amphetamines Screen (Not Detect) U Benzodiazepines Scrn (Not Detect) Urine Cocaine Screen (Not Detect) U Marijuana (THC) Screen (Not Detect) Influenza Type A (PCR) NEGATIVE (Negative) Influenza Type B (PCR) NEGATIVE (Negative) RSV RNA Qual (PCR) NEGATIVE (Negative) SARS-CoV-2 RNA (RT-PCR) NEGATIVE (Negative) 03/29/24 03/29/24 Range/Units 16:44 17:15 WBC (4.8-10.8) X10*3/uL RBC (4.60-5.80) X10*6/uL Hgb (14.0-18.0) g/dl Hct (42.0-52.0) % MCV (80.0-98.0) fL MCH (27.0-33.0) pg MCHC (31.0-36.0) g/dl RDW (11.0-16.0) % Plt Count (160-400) X10*3/uL MPV (9.4-12.4) fL Immature Gran % (Auto) (0.0-0.4) % Neut % (Auto) (45-73) % Lymph % (Auto) (20-40) % [place] % (Auto) (2-11) % Eos % (Auto) (0-4) % Baso % (Auto) (0-2) % Lymph # (Auto) (1.2-4.9) X10*3/uL [place] # (Auto) (0.1-1.2) X10*3/uL Eos # (Auto) (0.0-0.4) X10*3/uL Baso # (Auto) (0.0-0.2) X10*3/uL Abs Immat Gran (auto) (0.00-0.03) X10*3/uL Absolute Neuts (auto) (2.0-8.3) x10*3/uL Absolute Nucleated RBC (0.0-0.012) X10*3/uL Nucleated RBC % (auto) (0.0-0.2) /100WBC VBG pH (7.32-7.43) VBG pCO2 mmHg VBG pO2 mmHg VBG HCO3 (22-26) mmol/L VBG O2 Saturation % VBG Base Excess mmol/L Sodium (135-145) mmol/L Potassium (3.3-5.1) mmol/L Chloride (96-108) mmol/L Carbon Dioxide (22-29) mmol/L Anion Gap (12-20) BUN (9-16) mg/dL Creatinine (0.5-1.4) mg/dL Estim Creat Clear Calc Estimated GFR Random Glucose (60-115) mg/dL Lactic Acid (0.5-2.0) mmol/L Calcium (8.4-10.2) mg/dL Troponin I High Sens < 2.7 (<3.5-35.0) ng/L Urine Color Yellow Urine Appearance Clear Urine pH 5.5 (5.0-9.0) Ur Specific [place] 1.010 (1.005-1.025) Urine Protein Negative (Neg-Trace) mg/dL Urine Glucose (UA) Negative (Negative) mg/dL Urine Ketones Negative (Negative) mg/dL Urine Blood Negative (Negative) Urine Nitrite Negative (Negative) Ur Leukocyte Esterase Negative (Negative) Urine RBC 0-2 (0-2) /HPF Urine WBC 0-5 (0-5) /HPF Ur Squamous Epith Cells 0-2 (0-2) /HPF Urine Bacteria None Seen (None Seen) Hyaline Casts 0-2 (0-2) /LPF Urine Opiates Screen Not Detected (Not Detect) Ur Buprenorphine Scrn Not Detected (Not Detect) ng/mL Ur Oxycodone Screen Not Detected (Not Detect) ng/mL Urine Methadone Screen Positive H (Not Detect) ng/mL Urine Fentanyl Screen Not Detected (Not Detect) Ur Barbiturates Screen Not Detected (Not Detect) Ur Phencyclidine Scrn Not Detected (Not Detect) Ur Amphetamines Screen Not Detected (Not Detect) U Benzodiazepines Scrn Not Detected (Not Detect) Urine Cocaine Screen Not Detected (Not Detect) U Marijuana (THC) Screen Not Detected (Not Detect) Influenza Type A (PCR) (Negative) Influenza Type B (PCR) (Negative) RSV RNA Qual (PCR) (Negative) SARS-CoV-2 RNA (RT-PCR) (Negative) Discharge Plan Discharge Clinical Impression: Shortness of breath Patient Disposition: Admitted As Inpatient
[2024-03-29 15:12] LABS: Lactic Acid 0.8 mmol/L (0.5-2.0)
[2024-03-29 15:19] LABS: Troponin-I High Sensitivity < 2.7 ng/L (<3.5-35.0)
--- NOTE | 2024-03-29 15:30 | PC.NURSE ---
this nurse took over care of patient at 1500, pt a&ox3, vss, lungs diminished throughout with crackles at bases, pt wears 2L NC during the day 4L NC at night, bilateral lower extremity edema, awake overnight monitor intact nsr on monitor, labs previously drawn, xray performed, plan of care ongoing.
[2024-03-29 15:38] LABS: Influenza A PCR NEGATIVE (Negative); Influenza B PCR NEGATIVE (Negative); Resp Syncy Virus RNA Qual PCR NEGATIVE (Negative); SARS COV2 PCR INHOUSE NEGATIVE (Negative)
--- NOTE | 2024-03-29 16:34 | ECG_ITS ---
Test Reason : change Blood Pressure : / mmHG Vent. Rate : 071 BPM Atrial Rate : 000 BPM P-R Int : 000 ms QRS Dur : 182 ms QT Int : 446 ms P-R-T Axes : 000 -46 009 degrees QTc Int : 484 ms Normal sinus rhythm with frequent Premature atrial complexes Right bundle branch block Left anterior fascicular block Bifascicular block Abnormal ECG When compared with ECG of 29-MAR-2024 14:24, Premature atrial complexes are now Present Referred By: Cash Galdamez Electronically Signed By:VISHAL SARAH MD
[2024-03-29 17:14] LABS: Troponin-I High Sensitivity < 2.7 ng/L (<3.5-35.0)
[2024-03-29 17:22] LABS: Appearance Urine Clear; Color Urine Yellow; Glucose Urine UA Negative (Negative); Leukocyte Esterase Urine Negative (Negative); Nitrite Urine Negative (Negative); PH 5.5 (5.0-9.0); Urine Blood Negative (Negative); Urine Ketones Negative (Negative); Urine Protein Negative (Neg-Trace)
[2024-03-29 17:24] LABS: Bacteria Urine None Seen (None Seen); Hyaline Casts Urine 0-2 /LPF (0-2); RBC Urine 0-2 /HPF (0-2); Squamous Epithelial Cell Urine 0-2 /HPF (0-2); WBC Urine 0-5 /HPF (0-5)
[2024-03-29 17:31] LABS: Amphetamine Screen Urine Not Detected (Not Detect); Barbiturates, Urine Not Detected (Not Detect); Benzodiazepines Screen Urine Not Detected (Not Detect); Buprenorphine Scr Not Detected (Not Detect); Cannabinoid Screen Urine Not Detected (Not Detect); Cocaine Screen Urine Not Detected (Not Detect); Fentanyl, urine Not Detected (Not Detect); Methadone Screen, Urine Positive (Not Detect); Opiate Screen Urine Not Detected (Not Detect); Oxycodone Screen Urine Not Detected (Not Detect); Phencyclidine Screen Urine Not Detected (Not Detect)
[2024-03-29] MEDS: Albuterol/Iprat 2.5/0.5MG 3 ML AMPUL.NEB 6 ML INHALE (17:52)
--- NOTE | 2024-03-29 18:20 | P.HPHOSP_ITS ---
History of Present Illness Date of Service: 03/29/24 Chief Complaint: Shortness of breath 79-year-old male with PMH significant for CHF, COPD, 2 L home supplemental O2, VAD s/p right great toe amputation, AAA, paroxysmal atrial fibrillation on Xarelto, HTN, peripheral neuropathy, BPH who presented to ED by ambulance 03/28/2024 for complaints of left-sided chest pain and worsening shortness of breath. CTA demonstrated left upper lobe infiltrate. Patient was discharged on oral doxycycline but became worse over the course of the day prompting ambulance called to return to ER. In the emergency room he is found to be hypoxic and will be admitted for failed outpatient therapies Review of Systems 2 Review of Systems: Denies chest pain Denies shortness of breath Denies nausea vomiting diarrhea Denies fever chills PMFSH Social History Household Members: Other Household Members Other:: niece Housing: House Do you presently have visiting nurse or other home services: Yes Patient Tobacco Use Status: Current everyday Tobacco user Cigarettes Per Day: 2 Years Smoked: 50 plus e-Cigarette/Vaping Use: Never Used Second Hand Smoke Exposure: No Advance Directives: No Advance Directives Information Provided: Yes service: Yes Current occupational status: retired Cognitive needs: No Hearing needs: Yes Vision needs: Yes Meds Allergies Allergy/AdvReac Type Severity Reaction Status Date / Time lemon Allergy Anaphylaxis Verified 03/29/24 14:55 morphine Allergy Anaphylaxis Verified 03/29/24 14:55 vancomycin Allergy Chest Pain Verified 03/29/24 14:55 Active Medications: Current Medications Acetaminophen (Acetaminophen 325 Mg Tablet) 650 mg PO Q6H PRN PRN Reason: Pain, Mild 1-3,fever,headache Calcium Carbonate (Calcium Carbonate 750 Mg Tab.Chew) 750 mg PO Q4H PRN PRN Reason: Heartburn Ceftriaxone Sodium (Ceftriaxone Sodium 1 Gm Vial) 1 gm IVPUSH DAILY JESSICA Doxycycline Hyclate 100 mg/ (Sodium Chloride) 250 mls @ 166.67 mls/hr IV ONCE ONE Stop: 03/29/24 19:08 Doxycycline Hyclate 100 mg/ (Sodium Chloride) 250 mls @ 166.67 mls/hr IV Q12H JESSICA Magnesium Hydroxide (Milk Of Magnesia 30 Ml Oral.Susp) 30 ml PO DAILY PRN PRN Reason: Constipation Melatonin (Melatonin 3 Mg Tablet) 6 mg PO BEDTIME PRN PRN Reason: Insomnia Methylprednisolone Sodium Succinate (Methylprednisolone Sod Succ 125 Mg/2 Ml Vial) 60 mg IVPUSH Q6H [facility] Ondansetron HCl (Ondansetron Hcl 4 Mg/2 Ml Vial) 4 mg IVPUSH Q8H PRN PRN Reason: Nausea and Vomiting Sodium Chloride (0.9 % Sodium Chloride Flush 3 Ml Syringe) 3 ml IVFLUSH QSHIFT [facility] Home Medications ?Medication ?Instructions ?Recorded ?Confirmed ?Last Taken ?Type atorvastatin 40 mg tablet 40 mg PO DAILY 01/09/24 03/03/24 02/27/24 12:00 History celecoxib 100 mg capsule 200 mg PO BEDTIME 01/09/24 03/03/24 02/27/24 12:00 History clopidogrel 75 mg tablet 75 mg PO DAILY 01/09/24 03/03/24 Unknown History dexlansoprazole 60 mg 60 mg PO DAILY 01/09/24 03/03/24 02/27/24 12:00 History capsule,biphase delayed release famotidine 20 mg tablet 20 mg PO DAILY 01/09/24 03/03/24 02/27/24 12:00 History furosemide 40 mg tablet 40 mg PO DAILY 01/09/24 03/03/24 02/27/24 12:00 History magnesium 250 mg tablet 250 mg PO DAILY 01/09/24 03/03/24 02/27/24 12:00 History pantoprazole 40 mg tablet,delayed 40 mg PO DAILY@0630 01/09/24 03/03/24 02/27/24 12:00 History release tamsulosin 0.4 mg capsule 0.8 mg PO DAILY 01/09/24 03/03/24 02/27/24 12:00 History lisinopril 5 mg tablet 5 mg PO DAILY 02/27/24 03/03/24 02/27/24 12:00 History Physical Exam 2 Vital Signs and Narrative: Vital Signs: Last Vital Signs Temp 97.9 F 03/29/24 14:53 Pulse 69 03/29/24 18:00 Resp 15 03/29/24 18:00 BP 127/61 03/29/24 18:00 Pulse Ox 97 03/29/24 18:00 O2 Del Method Room Air 03/29/24 18:00 O2 Flow Rate 2 03/29/24 16:00 BMI result Body Mass Index 32.9 Const: Other: Awake alert no acute distress Resp: Other: Diminished throughout with crackles left base to mid lung field with scattered expiratory wheezes throughout Cardio: Other: No S4; positive S1-S2; no S3 murmurs rubs or gallops GI: Other: Soft nontender nondistended normoactive bowel sounds Extrem: Other: No edema bilaterally Results Labs 03/29/24 14:50 03/29/24 14:50 Labs: Laboratory Results - last 24 hr 03/29/24 03/29/24 03/29/24 14:50 14:51 14:56 MCV 90.7 MCH 30.0 MCHC 33.0 RDW 13.0 Plt Count 181 MPV 10.7 Immature Gran % (Auto) 0.4 Neut % (Auto) 58.6 Lymph % (Auto) 19.7 L [place] % (Auto) 10.7 Eos % (Auto) 9.7 H Baso % (Auto) 0.9 Lymph # (Auto) 1.4 [place] # (Auto) 0.7 Eos # (Auto) 0.7 H Baso # (Auto) 0.1 Abs Immat Gran (auto) 0.03 Absolute Neuts (auto) 4.1 Absolute Nucleated RBC 0.000 Nucleated RBC % (auto) 0.0 VBG pH 7.33 VBG pCO2 64 VBG pO2 143 VBG HCO3 34 H VBG O2 Saturation 99.0 VBG Base Excess 6.7 Anion Gap 10 L Estim Creat Clear Calc 65.9 Estimated GFR > 60 Random Glucose 129 H Lactic Acid 0.8 Calcium 8.0 L D Troponin I High Sens < 2.7 Urine Color Urine Appearance Urine pH Ur Specific [place] Urine Protein Urine Glucose (UA) Urine Ketones Urine Blood Urine Nitrite Ur Leukocyte Esterase Urine RBC Urine WBC Ur Squamous Epith Cells Urine Bacteria Hyaline Casts Urine Opiates Screen Ur Buprenorphine Scrn Ur Oxycodone Screen Urine Methadone Screen Urine Fentanyl Screen Ur Barbiturates Screen Ur Phencyclidine Scrn Ur Amphetamines Screen U Benzodiazepines Scrn Urine Cocaine Screen U Marijuana (THC) Screen Influenza Type A (PCR) NEGATIVE Influenza Type B (PCR) NEGATIVE RSV RNA Qual (PCR) NEGATIVE SARS-CoV-2 RNA (RT-PCR) NEGATIVE 03/29/24 03/29/24 16:44 17:15 MCV MCH MCHC RDW Plt Count MPV Immature Gran % (Auto) Neut % (Auto) Lymph % (Auto) [place] % (Auto) Eos % (Auto) Baso % (Auto) Lymph # (Auto) [place] # (Auto) Eos # (Auto) Baso # (Auto) Abs Immat Gran (auto) Absolute Neuts (auto) Absolute Nucleated RBC Nucleated RBC % (auto) VBG pH VBG pCO2 VBG pO2 VBG HCO3 VBG O2 Saturation VBG Base Excess Anion Gap Estim Creat Clear Calc Estimated GFR Random Glucose Lactic Acid Calcium Troponin I High Sens < 2.7 Urine Color Yellow Urine Appearance Clear Urine pH 5.5 Ur Specific [place] 1.010 Urine Protein Negative Urine Glucose (UA) Negative Urine Ketones Negative Urine Blood Negative Urine Nitrite Negative Ur Leukocyte Esterase Negative Urine RBC 0-2 Urine WBC 0-5 Ur Squamous Epith Cells 0-2 Urine Bacteria None Seen Hyaline Casts 0-2 Urine Opiates Screen Not Detected Ur Buprenorphine Scrn Not Detected Ur Oxycodone Screen Not Detected Urine Methadone Screen Positive H Urine Fentanyl Screen Not Detected Ur Barbiturates Screen Not Detected Ur Phencyclidine Scrn Not Detected Ur Amphetamines Screen Not Detected U Benzodiazepines Scrn Not Detected Urine Cocaine Screen Not Detected U Marijuana (THC) Screen Not Detected Influenza Type A (PCR) Influenza Type B (PCR) RSV RNA Qual (PCR) SARS-CoV-2 RNA (RT-PCR) Imaging Radiologist's Impressions: Impressions Chest X-Ray 03/29/24 14:24 IMPRESSION: Unremarkable chest exam. Electronically signed by: Sim Read MD 03/29/2024 03:35 PM [facility] Assessment and Plan (1) Left upper lobe pulmonary infiltrate: Status: Acute (2) Paroxysmal atrial fibrillation: Status: Acute (3) COPD (chronic obstructive pulmonary disease): Qualifiers: COPD type: unspecified COPD Qualified Code(s): J44.9 - Chronic obstructive pulmonary disease, unspecified Status: Acute (4) Peripheral vascular disease: Status: Acute Plan 79-year-old male with PMH significant for CHF, COPD, 2 L home supplemental O2, VAD s/p right great toe amputation, AAA, paroxysmal atrial fibrillation on Xarelto, HTN, peripheral neuropathy returns to the ER this evening hypoxic having failed outpatient therapies for left upper lobe pneumonia 1. Left upper lobe infiltrate/COPD exacerbation -ceftriaxone/doxycycline (1) -methylprednisolone 60 mg IV q.6 hours -DuoNebs q.4 hours while awake -titrate O2 to maintain sats greater than or equal to 92% 2. Paroxysmal atrial fibrillation -acceptable rate control at this time -continue Xarelto 10 mg daily -adjust therapies as indicated 3. Peripheral vascular disease -continue Plavix and Xarelto Full code Xarelto Requires at least 2 midnights going forward of inpatient stay to treat left upper lobe pneumonia with IV antibiotics that has failed outpatient therapies. This can not be achieved a lesser acute setting Quality Stroke Does the patient have a stroke diagnosis?: No VTE Prior VTE?: No VTE Risk Level:: Medical - moderate - high VTE Device Contraindication: Treatment Not Indicated VTE Drug Contraindication: N/A - Med Ordered
[2024-03-29] MEDS: methylPREDNISolone Sod Succ 125 MG/2 ML VIAL IVPUSH (18:21)
--- NOTE | 2024-03-29 18:50 | PC.NURSE ---
pt a&ox3, this nurse noted abn rhythm on security monitor- provider was notified- repeat ekg performed- pt found to be in afib, RT gave pt updraft, blood cultures ordered and drawn, pt will be given ABX per order.
[2024-03-29] MEDS: cefTRIAXone sodium 1 GM VIAL IVPUSH (18:56)
[2024-03-29] MEDS: Doxycycline Hyclate 100 MG in 0.9 % Sodium Chloride 250 ML 166.67 MG IV (19:32)
--- NOTE | 2024-03-29 19:41 | PC.NURSE ---
This RN assumed pt care @ 1900. Pt a&ox4, no signs of distress. Pt requested and given water. Pt changed into hospital bed for comfort. Pt medicated per [facility] Plan of care ongoing.
--- NOTE | 2024-03-29 20:04 | PHA.MEDREC ---
Addendum entered by Rosales Santiago 03/30/24 08:48: Was able to contact Dr Carrillo's office at [facility] [phone] to confirm that the Atorvastatin 40mg, Clopidogrel 75mg, Famotidine 20mg, Furosemide 40mg, Magnesium 250mg, and Tamsulosin 0.4mg were all prescribed recently, and the patient should be on them despite no recent fill history. Also confirmed that the patient is prescribed both Pantoprazole 40mg daily, Dexlansoprazole 60mg daily, and Famotidine 20mg daily. Addendum entered by Vera Levine [facility] 03/29/24 21:59: Sent a message to Dr. Ibanez letting him know the med rec is confirmed with medications he has been filling at the pharmacy. Unable to confirm patient is on atorvastatin, plavix, famotodine and flomax because there is no fill history. Patient is poor historian and family did not have the list because they gave to EMT's. Leaving a note for the med rec pharmacist to follow up with PCP tomorrow to see if we can get any more information? Previous discharge on 02/26 has patient on all of these medications for some reason but unsure where he is filling them or why they were on his med rec in the past? Original Note: Pharmacy Consult ? Medication Reconciliation Pharmacy has completed the medication reconciliation. Patient is a poor historian. Patient said he had a list of medications in his wallet, however it is no longer there. Called and spoke to Patients HCP Inés she states she gave a medication list to EMS. Inéss then put her son on the phone to try to confirm med list. Inés's son proceeded to go in to patients room to see if there was another list of medication. Son says There isn't another list. We gave the list to the EMS. It is not my problem that the list didn't get transferred. It is your problem! This is unacceptable ! So, utilized claims to confirm med list.
--- NOTE | 2024-03-30 | ECG_ITS ---
Test Reason : CHEST PRESSURE Blood Pressure : / mmHG Vent. Rate : 100 BPM Atrial Rate : 100 BPM P-R Int : 112 ms QRS Dur : 162 ms QT Int : 422 ms P-R-T Axes : 000 -55 019 degrees QTc Int : 544 ms Sinus rhythm Right bundle branch block Left anterior fascicular block Bifascicular block Abnormal ECG When compared with ECG of 29-MAR-2024 16:36, Premature atrial complexes is no longer Present QT has lengthened Referred By: Lisa Ibanez Electronically Signed By:VISHAL SARAH MD
[2024-03-30] MEDS: methylPREDNISolone Sod Succ 125 MG/2 ML VIAL 60 MG IVPUSH ×5 (00:11→23:21)
[2024-03-30] MEDS: 0.9 % Sodium Chloride Flush 3 ML SYRINGE IVFLUSH ×3 (00:12→23:22)
[2024-03-30] MEDS: Acetaminophen 325 MG TABLET 650 MG PO (04:22)
--- NOTE | 2024-03-30 04:24 | PC.NURSE ---
Pt requesting pain meds Provider notified and aware. Plan of care ongoing.
--- NOTE | 2024-03-30 04:25 | PC.NURSE ---
Pt requested and given tylenol Plan of care ongoing.
[2024-03-30] MEDS: LORazepam 2 MG/ML VIAL 1 MG IVPUSH (04:56)
[2024-03-30] MEDS: traMADoL HCL 50 MG TABLET PO (04:59)
[2024-03-30 05:25] LABS: Basophils Percent Auto 0.1 % (0-2); Hematocrit 37.9 % (42.0-52.0); Hemoglobin 12.7 g/dl (14.0-18.0); Imm Gran Abs Auto 0.05 X10*3/uL (0.00-0.03); Imm Gran Pct Auto 0.6 % (0.0-0.4); Lymphocytes Absolute Auto 0.6 X10*3/uL (1.2-4.9); Lymphocytes Percent Auto 7.2 % (20-40); MANUAL DIFF FLAG SCAN; Mean Corpuscular HGB Conc 33.5 g/dl (31.0-36.0); Mean Corpuscular Hemoglobin 29.7 pg (27.0-33.0); Mean Corpuscular Volume 88.8 fL (80.0-98.0); Mean Platelet Volume 10.5 fL (9.4-12.4); Monocytes Absolute Auto 0.1 X10*3/uL (0.1-1.2); Monocytes Percent Auto 0.7 % (2-11); Neutrophils Absolute Auto 7.4 x10*3/uL (2.0-8.3); Neutrophils Percent Auto 91.4 % (45-73); Platelet Count 200 X10*3/uL (160-400); Red Blood Count 4.27 X10*6/uL (4.60-5.80); Red Cell Distribution Width 12.9 % (11.0-16.0); SCAN SMEAR FLAG 1; White Blood Count 8.1 X10*3/uL (4.8-10.8)
[2024-03-30 05:47] LABS: Alanine Aminotransferase 24 U/L (0-40); Albumin Level 3.5 g/dL (3.5-5.0); Alkaline Phosphatase 110 U/L (39-117); Anion Gap 19 (12-20); Aspartate Amino Transferase 28 U/L (5-37); Bilirubin Total 0.2 mg/dL (0.0-1.0); Blood Urea Nitrogen 22 mg/dL (9-16); Calcium 8.2 mg/dL (8.4-10.2); Carbon Dioxide 21 mmol/L (22-29); Chloride 104 mmol/L (96-108); Creatinine Clr Calc Pharmacy 68.3; Estimated Glomerular Filt Rate > 60; Glucose Random 153 mg/dL (60-115); Sodium 140 mmol/L (135-145); Total Protein 6.5 g/dL (6.5-8.0)
[2024-03-30 05:55] LABS: SLIDE REVIEW VERIFIED
[2024-03-30 07:10] VITALS: BP 114/63; PULSE 89; RESP 12; TEMP 37.1; O2SAT 98
[2024-03-30] MEDS: Doxycycline Hyclate 100 MG in 0.9 % Sodium Chloride 250 ML 166.67 MG IV ×2 (07:21→17:14)
--- NOTE | 2024-03-30 07:29 | PC.NURSE ---
patient resting quietly in hospital bed, resp even and unlabored, on 3l NC. patient VSS, skin noted to be PWD, patient medicated per MAY.
[2024-03-30] MEDS: cefTRIAXone sodium 1 GM VIAL IVPUSH (08:58)
[2024-03-30 10:06] VITALS: BP 111/54; PULSE 74; RESP 11
--- NOTE | 2024-03-30 11:17 | MHC.CM.PN ---
Addendum entered by Padmini Mejias 04/01/24 13:57: Pt said that he has O2 concentrator from [facility], he does not have portable tanks. Original Note: IMM 03/30/24, Pt lives with family, he is signed up for home health services, but it has not started yet, he did not know through which agency. He has used services from [facility] in the recent past. For DME, he has a walker, and he said he does not have home O2, and is trying to get it. He said [facility], CM is unsure what about. HCP discussed, form to be completed here and added to chart. He will need assistance with transportation home at [place]. He confirmed PCP is Kiana Carrillo. CM to follow for DC needs.
--- NOTE | 2024-03-30 13:48 | HO.PM.IMPN ---
Subjective Subjective Date of Service: 03/30/24 Interval History: No acute issues overnight. Breathing slowly improving Review of Systems Denies chest pain Denies shortness of breath Denies nausea vomiting diarrhea Denies fever chills Physical Exam Vital Signs: Vital Signs: Last Vital Signs Temp 98.8 F 03/30/24 07:10 Pulse 74 03/30/24 10:06 Resp 11 L 03/30/24 10:06 BP 111/54 L 03/30/24 10:06 Pulse Ox 98 03/30/24 07:10 O2 Del Method Nasal Cannula 03/30/24 07:10 O2 Flow Rate 3 03/30/24 07:10 BMI result Body Mass Index 32.9 Const: Other: Awake alert no acute distress Resp: Other: Diminished throughout with crackles left base to mid lung field with scattered expiratory wheezes throughout Cardio: Other: No S4; positive S1-S2; no S3 murmurs rubs or gallops GI: Other: Soft nontender nondistended normoactive bowel sounds Extrem: Other: No edema bilaterally Objective Data Active Medications Acetaminophen (Acetaminophen 325 Mg Tablet) 650 mg PO Q6H PRN PRN Reason: Pain, Mild 1-3,fever,headache Last Admin: 03/30/24 04:22 Dose: 650 mg Documented By: TAWANNA Calcium Carbonate (Calcium Carbonate 750 Mg Tab.Chew) 750 mg PO Q4H PRN PRN Reason: Heartburn Ceftriaxone Sodium (Ceftriaxone Sodium 1 Gm Vial) 1 gm IVPUSH DAILY [facility] Last Admin: 03/30/24 08:58 Dose: 1 gm Documented By: MARK ANTHONY Doxycycline Hyclate 100 mg/ (Sodium Chloride) 250 mls @ 166.67 mls/hr IV Q12H [facility] Last Infusion: 03/30/24 09:00 Dose: Infused Documented By: MARK ANTHONY Magnesium Hydroxide (Milk Of Magnesia 30 Ml Oral.Susp) 30 ml PO DAILY PRN PRN Reason: Constipation Melatonin (Melatonin 3 Mg Tablet) 6 mg PO BEDTIME PRN PRN Reason: Insomnia Methylprednisolone Sodium Succinate (Methylprednisolone Sod Succ 125 Mg/2 Ml Vial) 60 mg IVPUSH Q6H [facility] Last Admin: 03/30/24 12:26 Dose: 60 mg Documented By: LIANNE Ondansetron HCl (Ondansetron Hcl 4 Mg/2 Ml Vial) 4 mg IVPUSH Q8H PRN PRN Reason: Nausea and Vomiting Sodium Chloride (0.9 % Sodium Chloride Flush 3 Ml Syringe) 3 ml IVFLUSH QSHIFT JESSICA Last Admin: 03/30/24 07:30 Dose: Not Given Documented By: MARK ANTHONY Non-Admin Reason: IV Running Labs 03/30/24 05:19 03/30/24 05:19 Labs: Laboratory Results - last 24 hr 03/29/24 03/29/24 03/29/24 14:50 14:51 14:56 MCV 90.7 MCH 30.0 MCHC 33.0 RDW 13.0 Plt Count 181 MPV 10.7 Immature Gran % (Auto) 0.4 Neut % (Auto) 58.6 Lymph % (Auto) 19.[address] [place] % (Auto) 10.7 Eos % (Auto) 9.7 H Baso % (Auto) 0.9 Lymph # (Auto) 1.4 [place] # (Auto) 0.7 Eos # (Auto) 0.7 H Baso # (Auto) 0.1 Abs Immat Gran (auto) 0.03 Absolute Neuts (auto) 4.1 Absolute Nucleated RBC 0.000 Nucleated RBC % (auto) 0.0 Smear Tech's Comments VBG pH 7.33 VBG pCO2 64 VBG pO2 143 VBG HCO3 34 H VBG O2 Saturation 99.0 VBG Base Excess 6.7 Anion Gap 10 L Estim Creat Clear Calc 65.9 Estimated GFR > 60 Random Glucose 129 H Lactic Acid 0.8 Calcium 8.0 L D Total Bilirubin AST ALT Alkaline Phosphatase Troponin I High Sens < 2.7 Total Protein Albumin Urine Color Urine Appearance Urine pH Ur Specific [place] Urine Protein Urine Glucose (UA) Urine Ketones Urine Blood Urine Nitrite Ur Leukocyte Esterase Urine RBC Urine WBC Ur Squamous Epith Cells Urine Bacteria Hyaline Casts Urine Opiates Screen Ur Buprenorphine Scrn Ur Oxycodone Screen Urine Methadone Screen Urine Fentanyl Screen Ur Barbiturates Screen Ur Phencyclidine Scrn Ur Amphetamines Screen U Benzodiazepines Scrn Urine Cocaine Screen U Marijuana (THC) Screen Influenza Type A (PCR) NEGATIVE Influenza Type B (PCR) NEGATIVE RSV RNA Qual (PCR) NEGATIVE SARS-CoV-2 RNA (RT-PCR) NEGATIVE 03/29/24 03/29/24 03/30/24 16:44 17:15 05:19 MCV 88.8 MCH 29.7 MCHC 33.5 RDW 12.9 Plt Count 200 MPV 10.5 Immature Gran % (Auto) 0.6 H Neut % (Auto) 91.4 H Lymph % (Auto) 7.[address] % (Auto) 0.7 L Eos % (Auto) 0.0 Baso % (Auto) 0.1 Lymph # (Auto) 0.[address] # (Auto) 0.1 Eos # (Auto) 0.0 Baso # (Auto) 0.0 Abs Immat Gran (auto) 0.05 H Absolute Neuts (auto) 7.4 Absolute Nucleated RBC 0.000 Nucleated RBC % (auto) 0.0 Smear Tech's Comments VERIFIED VBG pH VBG pCO2 VBG pO2 VBG HCO3 VBG O2 Saturation VBG Base Excess Anion Gap 19 Estim Creat Clear Calc 68.3 Estimated GFR > 60 Random Glucose 153 H Lactic Acid Calcium 8.2 L Total Bilirubin 0.2 AST 28 ALT 24 Alkaline Phosphatase 110 Troponin I High Sens < 2.7 Total Protein 6.5 Albumin 3.5 Urine Color Yellow Urine Appearance Clear Urine pH 5.5 Ur Specific [place] 1.010 Urine Protein Negative Urine Glucose (UA) Negative Urine Ketones Negative Urine Blood Negative Urine Nitrite Negative Ur Leukocyte Esterase Negative Urine RBC 0-2 Urine WBC 0-5 Ur Squamous Epith Cells 0-2 Urine Bacteria None Seen Hyaline Casts 0-2 Urine Opiates Screen Not Detected Ur Buprenorphine Scrn Not Detected Ur Oxycodone Screen Not Detected Urine Methadone Screen Positive H Urine Fentanyl Screen Not Detected Ur Barbiturates Screen Not Detected Ur Phencyclidine Scrn Not Detected Ur Amphetamines Screen Not Detected U Benzodiazepines Scrn Not Detected Urine Cocaine Screen Not Detected U Marijuana (THC) Screen Not Detected Influenza Type A (PCR) Influenza Type B (PCR) RSV RNA Qual (PCR) SARS-CoV-2 RNA (RT-PCR) Assessment and Plan (1) Left upper lobe pulmonary infiltrate: Status: Acute (2) Paroxysmal atrial fibrillation: Status: Acute Plan 79-year-old male with PMH significant for CHF, COPD, 2 L home supplemental O2, VAD s/p right great toe amputation, AAA, paroxysmal atrial fibrillation on Xarelto, HTN, peripheral neuropathy returns to the ER this evening hypoxic having failed outpatient therapies for left upper lobe pneumonia 1. Left upper lobe infiltrate/COPD exacerbation -ceftriaxone/doxycycline (2) -methylprednisolone 60 mg IV q.6 hours -DuoNebs q.4 hours while awake -titrate O2 to maintain sats greater than or equal to 92% 2. Paroxysmal atrial fibrillation -acceptable rate control at this time -continue Xarelto 10 mg daily -adjust therapies as indicated 3. Peripheral vascular disease -continue Plavix and Xarelto Full code Xarelto Requires at least 2 midnights going forward of inpatient stay to treat left upper lobe pneumonia with IV antibiotics that has failed outpatient therapies. This can not be achieved a lesser acute setting Quality Stroke Does the patient have a stroke diagnosis?: No VTE Prior VTE?: No VTE Risk Level:: Medical - moderate - high VTE Device Contraindication: Treatment Not Indicated VTE Drug Contraindication: N/A - Med Ordered
[2024-03-30 13:51] VITALS: BP 118/55; PULSE 97; RESP 18; TEMP 36.1; O2SAT 98
[2024-03-30 14:20] VITALS: O2SAT 95
[2024-03-30 16:00] VITALS: BP 118/56; PULSE 77; RESP 10; TEMP 36.2; O2SAT 97
[2024-03-30 19:59] VITALS: BP 116/63; PULSE 81; RESP 20; TEMP 36.3; O2SAT 97
[2024-03-31] VITALS (8 sets, daily range): BP systolic 114–159; BP diastolic 57–80; PULSE 64–82; RESP 17–20; TEMP 36.3–36.9; O2SAT 95–100
[2024-03-31] MEDS: traMADoL HCL 50 MG TABLET PO ×4 (00:21→21:00)
[2024-03-31] MEDS: methylPREDNISolone Sod Succ 125 MG/2 ML VIAL 60 MG IVPUSH (05:14)
[2024-03-31] MEDS: Doxycycline Hyclate 100 MG in 0.9 % Sodium Chloride 250 ML 166.67 MG IV (05:14)
[2024-03-31] MEDS: Omeprazole 40 MG CAPSULE.DR PO (05:51)
[2024-03-31 07:42] LABS: Basophils Percent Auto 0.1 % (0-2); Hematocrit 37.1 % (42.0-52.0); Hemoglobin 12.2 g/dl (14.0-18.0); Imm Gran Abs Auto 0.13 X10*3/uL (0.00-0.03); Imm Gran Pct Auto 0.6 % (0.0-0.4); Lymphocytes Percent Auto 4.6 % (20-40); MANUAL DIFF FLAG SCAN; Mean Corpuscular HGB Conc 32.9 g/dl (31.0-36.0); Mean Corpuscular Hemoglobin 29.5 pg (27.0-33.0); Mean Corpuscular Volume 89.8 fL (80.0-98.0); Mean Platelet Volume 11.4 fL (9.4-12.4); Monocytes Absolute Auto 0.9 X10*3/uL (0.1-1.2); Monocytes Percent Auto 4.1 % (2-11); Neutrophils Absolute Auto 18.9 x10*3/uL (2.0-8.3); Neutrophils Percent Auto 90.6 % (45-73); Platelet Count 219 X10*3/uL (160-400); Red Blood Count 4.13 X10*6/uL (4.60-5.80); Red Cell Distribution Width 13.2 % (11.0-16.0); SCAN SMEAR FLAG 1; White Blood Count 20.9 X10*3/uL (4.8-10.8)
[2024-03-31 07:54] LABS: Alanine Aminotransferase 21 U/L (0-40); Albumin Level 3.3 g/dL (3.5-5.0); Alkaline Phosphatase 97 U/L (39-117); Anion Gap 12 (12-20); Aspartate Amino Transferase 26 U/L (5-37); Bilirubin Total 0.2 mg/dL (0.0-1.0); Blood Urea Nitrogen 27 mg/dL (9-16); Calcium 8.3 mg/dL (8.4-10.2); Carbon Dioxide 27 mmol/L (22-29); Chloride 106 mmol/L (96-108); Creatinine Clr Calc Pharmacy 81.9; Estimated Glomerular Filt Rate > 60; Glucose Random 123 mg/dL (60-115); Potassium 4.2 mmol/L (3.3-5.1); Sodium 141 mmol/L (135-145); Total Protein 6.2 g/dL (6.5-8.0)
[2024-03-31] MEDS: Fluticasone/Umeclidinium/Vilanterol 200/62.5/25 BLST.W.DEV 1 PUFF INHALE (08:07)
[2024-03-31] MEDS: Pregabalin 100 MG CAPSULE PO ×3 (08:51→20:59)
[2024-03-31] MEDS: Clopidogrel Bisulfate 75 MG TABLET PO (08:51)
[2024-03-31] MEDS: Atorvastatin Calcium 40 MG TABLET PO (08:51)
[2024-03-31] MEDS: Magnesium Oxide 400 MG TABLET 200 MG PO (08:51)
[2024-03-31] MEDS: Famotidine 20 MG TABLET PO (08:51)
[2024-03-31] MEDS: Furosemide 40 MG TABLET PO (08:52)
[2024-03-31] MEDS: lisinopriL 5 MG TABLET PO (08:52)
[2024-03-31] MEDS: Rivaroxaban 10 MG TABLET PO (08:52)
[2024-03-31] MEDS: cefTRIAXone sodium 1 GM VIAL IVPUSH (08:52)
[2024-03-31] MEDS: Tamsulosin HCL 0.4 MG CAPSULE 0.8 MG PO (08:52)
[2024-03-31] MEDS: 0.9 % Sodium Chloride Flush 3 ML SYRINGE IVFLUSH ×3 (08:53→21:01)
[2024-03-31 08:55] LABS: SLIDE REVIEW VERIFIED
--- NOTE | 2024-03-31 15:18 | P.PNIM_ITS ---
Subjective Subjective Date of Service: 03/31/24 Interval History: Being followed for shortness breath Complaining of heartburn, denies PND, no orthopnea, no worsening shortness of breath, no chest pain, no fever or chills, no acute events overnight Review of Systems All other system reviewed and are negative Physical Exam 2 Vital Signs: Vital Signs: Last Vital Signs Temp 97.3 F 03/31/24 15:12 Pulse 73 03/31/24 15:12 Resp 20 03/31/24 15:12 BP 114/57 L 03/31/24 15:12 Pulse Ox 95 03/31/24 15:12 O2 Del Method Nasal Cannula 03/31/24 15:12 O2 Flow Rate 2 03/31/24 15:12 BMI result Body Mass Index 32.9 Const: Other: General: AOx3, no acute distress Neck no JVD Resp: Lungs clear occasional wheeze, no crackles CVS: Irregularly irregular rhythm GI: +BS, NT, no distention Neuro: non focal Extremities: Right leg s/p great toe amputation, no surrounding redness. Psych: Appropriate affect Objective Data Active Medications Acetaminophen (Acetaminophen 325 Mg Tablet) 650 mg PO Q6H PRN PRN Reason: Pain, Mild 1-3,fever,headache Last Admin: 03/30/24 04:22 Dose: 650 mg Documented By: TAWANNA Al Hydroxide/Mg Hydroxide (Magnesium Hydrox/Alum Hydrox 30 Ml Oral.Susp) 30 ml PO Q4H PRN PRN Reason: Heartburn Atorvastatin Calcium (Atorvastatin Calcium 40 Mg Tablet) 40 mg PO DAILY [facility] Last Admin: 03/31/24 08:51 Dose: 40 mg Documented By: JASMYNE Calcium Carbonate (Calcium Carbonate 750 Mg Tab.Chew) 750 mg PO Q4H PRN PRN Reason: Heartburn Ceftriaxone Sodium (Ceftriaxone Sodium 1 Gm Vial) 1 gm IVPUSH DAILY [facility] Last Admin: 03/31/24 08:52 Dose: 1 gm Documented By: JASMYNE Clopidogrel Bisulfate (Clopidogrel Bisulfate 75 Mg Tablet) 75 mg PO DAILY [facility] Last Admin: 03/31/24 08:51 Dose: 75 mg Documented By: JASMYNE Cyclobenzaprine HCl (Cyclobenzaprine Hcl 10 Mg Tablet) 10 mg PO BEDTIME PRN PRN Reason: muscle spasm Famotidine (Famotidine 20 Mg Tablet) 20 mg PO DAILY [facility] Last Admin: 03/31/24 08:51 Dose: 20 mg Documented By: JASMYNE Fluticasone/Umeclidinium/Vilanterol (Fluticasone/Umeclidinium/Vilanterol 200/62.5 Blst.W.Dev) 1 puff INHALE DAILY [facility] Last Admin: 03/31/24 08:07 Dose: 1 puff Documented By: CALIN Furosemide (Furosemide 40 Mg Tablet) 40 mg PO DAILY [facility]; Protocol Last Admin: 03/31/24 08:52 Dose: 40 mg Documented By: JASMYNE Doxycycline Hyclate 100 mg/ (Sodium Chloride) 250 mls @ 166.67 mls/hr IV Q12H [facility] Last Infusion: 03/31/24 08:53 Dose: Infused Documented By: JASMYNE Lisinopril (Lisinopril 5 Mg Tablet) 5 mg PO DAILY [facility]; Protocol Last Admin: 03/31/24 08:52 Dose: 5 mg Documented By: JASMYNE Magnesium Hydroxide (Milk Of Magnesia 30 Ml Oral.Susp) 30 ml PO DAILY PRN PRN Reason: Constipation Magnesium Oxide (Magnesium Oxide 400 Mg Tablet) 200 mg PO DAILY [facility] Last Admin: 03/31/24 08:51 Dose: 200 mg Documented By: JASMYNE Melatonin (Melatonin 3 Mg Tablet) 6 mg PO BEDTIME PRN PRN Reason: Insomnia Methylprednisolone Sodium Succinate (Methylprednisolone Sod Succ 40 Mg/Ml Vial) 20 mg IVPUSH Q12H [facility] Omeprazole (Omeprazole 40 Mg Capsule.Dr) 40 mg PO DAILY@0630 [facility] Last Admin: 03/31/24 05:51 Dose: 40 mg Documented By: JANESSA Ondansetron HCl (Ondansetron Hcl 4 Mg/2 Ml Vial) 4 mg IVPUSH Q8H PRN PRN Reason: Nausea and Vomiting Pregabalin (Pregabalin 100 Mg Capsule) 100 mg PO TID [facility] Last Admin: 03/31/24 08:51 Dose: 100 mg Documented By: JASMYNE Rivaroxaban (Rivaroxaban 10 Mg Tablet) 10 mg PO DAILY [facility] Last Admin: 03/31/24 08:52 Dose: 10 mg Documented By: JASMYNE Sodium Chloride (0.9 % Sodium Chloride Flush 3 Ml Syringe) 3 ml IVFLUSH QSHIFT [facility] Last Admin: 03/31/24 08:53 Dose: 3 ml Documented By: JASMYNE Tamsulosin HCl (Tamsulosin Hcl 0.4 Mg Capsule) 0.8 mg PO DAILY [facility] Last Admin: 03/31/24 08:52 Dose: 0.8 mg Documented By: JASMYNE Tramadol HCl (Tramadol Hcl 50 Mg Tablet) 50 mg PO Q6H PRN PRN Reason: Pain, Severe (Pain Scale 7-10) Last Admin: 03/31/24 08:56 Dose: 50 mg Documented By: JASMYNE Labs 03/31/24 06:43 03/31/24 06:43 Labs: Laboratory Results - last 24 hr 03/31/24 06:43 MCV 89.8 MCH 29.5 MCHC 32.9 RDW 13.2 Plt Count 219 MPV 11.4 Immature Gran % (Auto) 0.6 H Neut % (Auto) 90.6 H Lymph % (Auto) 4.6 L [place] % (Auto) 4.1 Eos % (Auto) 0.0 Baso % (Auto) 0.1 Lymph # (Auto) 1.0 L [place] # (Auto) 0.9 Eos # (Auto) 0.0 Baso # (Auto) 0.0 Abs Immat Gran (auto) 0.13 H Absolute Neuts (auto) 18.9 H Absolute Nucleated RBC 0.000 Nucleated RBC % (auto) 0.0 Smear Tech's Comments VERIFIED Anion Gap 12 Estim Creat Clear Calc 81.9 Estimated GFR > 60 Random Glucose 123 H Calcium 8.3 L Total Bilirubin 0.2 AST 26 ALT 21 Alkaline Phosphatase 97 Total Protein 6.2 L Albumin 3.3 L Microbiology Microbiology Results: Microbiology 03/29/24 18:39 Blood Culture - Preliminary Blood - Venous No growth after 24 hours. 03/29/24 18:39 Blood Culture - Preliminary Blood - Venous No growth after 24 hours. Assessment and Plan (1) Shortness of breath: Status: Acute (2) Paroxysmal atrial fibrillation: Status: Acute (3) Left upper lobe pulmonary infiltrate: Status: Acute Plan 79-year-old male with PMH significant for CHF, COPD, 2 L home supplemental O2, VAD s/p right great toe amputation, AAA, paroxysmal atrial fibrillation on Xarelto, HTN, peripheral neuropathy returns to the ER this evening hypoxic having failed outpatient therapies for left upper lobe pneumonia 1. Left upper lobe infiltrate/COPD exacerbation -shortness of breath improved, no fevers, no chills Continue IV ceftriaxone/doxycycline day 3 -wean IV methylprednisolone from 60 mg IV q.6 hours to iv steroids 20 b.i.d. -DuoNebs q.4 hours while awake and as needed -on 2 L of home oxygen -transitioned to by mouth antibiotics and discharged home at a.m. if remains clinically stable -elevated WBC due to steroids 2. Paroxysmal atrial fibrillation -acceptable rate control at this time -continue Xarelto 10 mg daily 3. Peripheral vascular disease -continue Plavix and Xarelto Full code Xarelto Requires continued inpatient stay to treat left upper lobe pneumonia with IV antibiotics that has failed outpatient therapies. This can not be achieved a lesser acute setting Quality Stroke Does the patient have a stroke diagnosis?: No VTE Prior VTE?: No VTE Risk Level:: Medical - moderate - high VTE Device Contraindication: Treatment Not Indicated VTE Drug Contraindication: N/A - Med Ordered
[2024-03-31] MEDS: methylPREDNISolone Sod Succ 40 MG/ML VIAL 20 MG IVPUSH (18:26)
[2024-03-31] MEDS: DOXYCYCLINE HYCLATE IV (19:02)
[2024-03-31] MEDS: SODIUM CHLORIDE 0.9% IV (19:02)
[2024-04-01] VITALS (7 sets, daily range): BP systolic 120–173; BP diastolic 63–84; PULSE 62–80; RESP 16–20; TEMP 36–36.2; O2SAT 96–99
[2024-04-01] MEDS: traMADoL HCL 50 MG TABLET PO ×4 (03:39→21:48)
[2024-04-01] MEDS: methylPREDNISolone Sod Succ 40 MG/ML VIAL 20 MG IVPUSH (05:05)
[2024-04-01] MEDS: Omeprazole 40 MG CAPSULE.DR PO (05:06)
[2024-04-01] MEDS: DOXYCYCLINE HYCLATE IV (06:07)
[2024-04-01] MEDS: SODIUM CHLORIDE 0.9% IV (06:07)
[2024-04-01 07:27] LABS: MANUAL DIFF FLAG NO
[2024-04-01 07:31] LABS: Basophils Percent Auto 0.2 % (0-2); Eosinophils Percent Auto 0.1 % (0-4); Hematocrit 38.4 % (42.0-52.0); Hemoglobin 12.9 g/dl (14.0-18.0); Imm Gran Abs Auto 0.19 X10*3/uL (0.00-0.03); Imm Gran Pct Auto 1.2 % (0.0-0.4); Lymphocytes Absolute Auto 1.3 X10*3/uL (1.2-4.9); Lymphocytes Percent Auto 7.7 % (20-40); Mean Corpuscular HGB Conc 33.6 g/dl (31.0-36.0); Mean Corpuscular Hemoglobin 29.9 pg (27.0-33.0); Mean Corpuscular Volume 89.1 fL (80.0-98.0); Mean Platelet Volume 11.1 fL (9.4-12.4); Monocytes Absolute Auto 0.6 X10*3/uL (0.1-1.2); Monocytes Percent Auto 3.6 % (2-11); Neutrophils Absolute Auto 14.3 x10*3/uL (2.0-8.3); Neutrophils Percent Auto 87.2 % (45-73); Platelet Count 199 X10*3/uL (160-400); Red Blood Count 4.31 X10*6/uL (4.60-5.80); White Blood Count 16.3 X10*3/uL (4.8-10.8)
[2024-04-01 07:46] LABS: Alanine Aminotransferase 22 U/L (0-40); Albumin Level 3.3 g/dL (3.5-5.0); Alkaline Phosphatase 96 U/L (39-117); Anion Gap 13 (12-20); Aspartate Amino Transferase 25 U/L (5-37); Bilirubin Total 0.2 mg/dL (0.0-1.0); Blood Urea Nitrogen 29 mg/dL (9-16); Calcium 8.2 mg/dL (8.4-10.2); Carbon Dioxide 28 mmol/L (22-29); Chloride 103 mmol/L (96-108); Creatinine Clr Calc Pharmacy 71.6; Estimated Glomerular Filt Rate > 60; Glucose Random 133 mg/dL (60-115); Potassium 4.1 mmol/L (3.3-5.1); Sodium 140 mmol/L (135-145); Total Protein 6.1 g/dL (6.5-8.0)
[2024-04-01] MEDS: Atorvastatin Calcium 40 MG TABLET PO (08:29)
[2024-04-01] MEDS: Famotidine 20 MG TABLET PO (08:29)
[2024-04-01] MEDS: Rivaroxaban 10 MG TABLET PO (08:29)
[2024-04-01] MEDS: lisinopriL 5 MG TABLET PO (08:29)
[2024-04-01] MEDS: Pregabalin 100 MG CAPSULE PO ×3 (08:29→21:48)
[2024-04-01] MEDS: cefTRIAXone sodium 1 GM VIAL IVPUSH (08:29)
[2024-04-01] MEDS: Clopidogrel Bisulfate 75 MG TABLET PO (08:30)
[2024-04-01] MEDS: Doxycycline Monohydrate 100 MG CAPSULE PO ×2 (08:30→21:48)
[2024-04-01] MEDS: Magnesium Oxide 400 MG TABLET 200 MG PO (08:30)
[2024-04-01] MEDS: Tamsulosin HCL 0.4 MG CAPSULE 0.8 MG PO (08:30)
[2024-04-01] MEDS: Cyclobenzaprine HCl 10 MG TABLET PO ×2 (08:32→22:00)
[2024-04-01] MEDS: 0.9 % Sodium Chloride Flush 3 ML SYRINGE IVFLUSH ×3 (08:34→21:50)
[2024-04-01] MEDS: Furosemide 40 MG TABLET PO (08:49)
--- NOTE | 2024-04-01 13:45 | P.PNIM_ITS ---
Subjective Subjective Date of Service: 04/01/24 Interval History: Noted to have hypoxia overnight since was kept on 2 L of oxygen as opposed to 4 L at baseline. This morning feeling better stable oxygenation denies fever, no chills, has been mostly in bed, tolerating diet no nausea no vomiting or abdominal pain. Ambulate short distances at baseline. Review of Systems All other system reviewed and are negative. Physical Exam 2 Vital Signs: Vital Signs: Last Vital Signs Temp 96.8 F 04/01/24 11:17 Pulse 69 04/01/24 11:17 Resp 16 04/01/24 11:17 BP 136/72 04/01/24 11:17 Pulse Ox 97 04/01/24 11:17 O2 Del Method Nasal Cannula 04/01/24 11:17 O2 Flow Rate 2 04/01/24 11:17 BMI result Body Mass Index 32.9 Const: Other: General: AOx3, no acute distress Neck no JVD Resp: Lungs clear occasional wheeze, no crackles CVS: Irregularly irregular rhythm GI: +BS, NT, no distention Neuro: non focal Extremities: Right leg s/p great toe amputation, no surrounding redness. Psych: Appropriate affect Objective Data Active Medications Acetaminophen (Acetaminophen 325 Mg Tablet) 650 mg PO Q6H PRN PRN Reason: Pain, Mild 1-3,fever,headache Last Admin: 03/30/24 04:22 Dose: 650 mg Documented By: TAWANNA Al Hydroxide/Mg Hydroxide (Magnesium Hydrox/Alum Hydrox 30 Ml Oral.Susp) 30 ml PO Q4H PRN PRN Reason: Heartburn Atorvastatin Calcium (Atorvastatin Calcium 40 Mg Tablet) 40 mg PO DAILY [facility] Last Admin: 04/01/24 08:29 Dose: 40 mg Documented By: LINN Calcium Carbonate (Calcium Carbonate 750 Mg Tab.Chew) 750 mg PO Q4H PRN PRN Reason: Heartburn Ceftriaxone Sodium (Ceftriaxone Sodium 1 Gm Vial) 1 gm IVPUSH DAILY [facility] Last Admin: 04/01/24 08:29 Dose: 1 gm Documented By: LINN Clopidogrel Bisulfate (Clopidogrel Bisulfate 75 Mg Tablet) 75 mg PO DAILY [facility] Last Admin: 04/01/24 08:30 Dose: 75 mg Documented By: LINN Cyclobenzaprine HCl (Cyclobenzaprine Hcl 10 Mg Tablet) 10 mg PO BEDTIME PRN PRN Reason: muscle spasm Last Admin: 04/01/24 08:32 Dose: 10 mg Documented By: LINN Doxycycline Monohydrate (Doxycycline Monohydrate 100 Mg Capsule) 100 mg PO Q12H [facility] Last Admin: 04/01/24 08:30 Dose: 100 mg Documented By: LINN Famotidine (Famotidine 20 Mg Tablet) 20 mg PO DAILY [facility] Last Admin: 04/01/24 08:29 Dose: 20 mg Documented By: LINN Fluticasone/Umeclidinium/Vilanterol (Fluticasone/Umeclidinium/Vilanterol 200/62.5/25 Blst.W.Dev) 1 puff INHALE DAILY [facility] Last Admin: 04/01/24 10:11 Dose: Not Given Documented By: SHABANA Non-Admin Reason: See Note Furosemide (Furosemide 40 Mg Tablet) 40 mg PO DAILY [facility]; Protocol Last Admin: 04/01/24 08:49 Dose: 40 mg Documented By: LINN Lisinopril (Lisinopril 5 Mg Tablet) 5 mg PO DAILY [facility]; Protocol Last Admin: 04/01/24 08:29 Dose: 5 mg Documented By: LINN Magnesium Hydroxide (Milk Of Magnesia 30 Ml Oral.Susp) 30 ml PO DAILY PRN PRN Reason: Constipation Magnesium Oxide (Magnesium Oxide 400 Mg Tablet) 200 mg PO DAILY [facility] Last Admin: 04/01/24 08:30 Dose: 200 mg Documented By: LINN Melatonin (Melatonin 3 Mg Tablet) 6 mg PO BEDTIME PRN PRN Reason: Insomnia Methylprednisolone Sodium Succinate (Methylprednisolone Sod Succ 40 Mg/Ml Vial) 20 mg IVPUSH Q12H [facility] Last Admin: 04/01/24 05:05 Dose: 20 mg Documented By: AKIRA Omeprazole (Omeprazole 40 Mg Capsule.) 40 mg PO DAILY@0630 [facility] Last Admin: 04/01/24 05:06 Dose: 40 mg Documented By: AKIRA Ondansetron HCl (Ondansetron Hcl 4 Mg/2 Ml Vial) 4 mg IVPUSH Q8H PRN PRN Reason: Nausea and Vomiting Pregabalin (Pregabalin 100 Mg Capsule) 100 mg PO TID [facility] Last Admin: 04/01/24 08:29 Dose: 100 mg Documented By: LINN Rivaroxaban (Rivaroxaban 10 Mg Tablet) 10 mg PO DAILY [facility] Last Admin: 04/01/24 08:29 Dose: 10 mg Documented By: LINN Sodium Chloride (0.9 % Sodium Chloride Flush 3 Ml Syringe) 3 ml IVFLUSH QSHIFT [facility] Last Admin: 04/01/24 08:34 Dose: 3 ml Documented By: LINN Tamsulosin HCl (Tamsulosin Hcl 0.4 Mg Capsule) 0.8 mg PO DAILY [facility] Last Admin: 04/01/24 08:30 Dose: 0.8 mg Documented By: LINN Tramadol HCl (Tramadol Hcl 50 Mg Tablet) 50 mg PO Q6H PRN PRN Reason: Pain, Severe (Pain Scale 7-10) Last Admin: 04/01/24 08:52 Dose: 50 mg Documented By: LINN Labs 04/01/24 06:50 04/01/24 06:50 Labs: Laboratory Results - last 24 hr 04/01/24 06:50 MCV 89.1 MCH 29.9 MCHC 33.6 RDW 13.0 Plt Count 199 MPV 11.1 Immature Gran % (Auto) 1.2 H Neut % (Auto) 87.2 H Lymph % (Auto) 7.7 L [place] % (Auto) 3.6 Eos % (Auto) 0.1 Baso % (Auto) 0.2 Lymph # (Auto) 1.3 [place] # (Auto) 0.6 Eos # (Auto) 0.0 Baso # (Auto) 0.0 Abs Immat Gran (auto) 0.19 H Absolute Neuts (auto) 14.3 H Absolute Nucleated RBC 0.000 Nucleated RBC % (auto) 0.0 Anion Gap 13 Estim Creat Clear Calc 71.6 Estimated GFR > 60 Random Glucose 133 H Calcium 8.2 L Total Bilirubin 0.2 AST 25 ALT 22 Alkaline Phosphatase 96 Total Protein 6.1 L Albumin 3.3 L Microbiology Microbiology Results: Microbiology 03/29/24 18:39 Blood Culture - Preliminary Blood - Venous No growth after 48 hours. 03/29/24 18:39 Blood Culture - Preliminary Blood - Venous No growth after 48 hours. Assessment and Plan (1) Shortness of breath: Status: Acute (2) Paroxysmal atrial fibrillation: Status: Acute (3) Left upper lobe pulmonary infiltrate: Status: Acute Plan 79-year-old male with PMH significant for CHF, COPD, 2 L home supplemental O2, VAD s/p right great toe amputation, AAA, paroxysmal atrial fibrillation on Xarelto, HTN, peripheral neuropathy returns to the ER this evening hypoxic having failed outpatient therapies for left upper lobe pneumonia 1. Left upper lobe infiltrate/COPD exacerbation -shortness of breath improved, no fevers, no chills on iV ceftriaxone/doxycycline day 3 will transition to by mouth antibiotics -on iv steroids 20 b.i.d. will transition to by mouth prednisone -DuoNebs q.4 hours while awake and as needed -on 2 L of home oxygen at rest and 4 L at night -possible discharge home at a.m. if remains clinically stable recommend out of bed to chair and ambulation -elevated WBC due to steroids 2. Paroxysmal atrial fibrillation -acceptable rate control ,continue Xarelto 10 mg daily 3. Peripheral vascular disease -continue Plavix and Xarelto Full code Xarelto Requires continued inpatient stay to treat left upper lobe pneumonia with IV antibiotics that has failed outpatient therapies. This can not be achieved a lesser acute setting Quality Stroke Does the patient have a stroke diagnosis?: No VTE Prior VTE?: No VTE Risk Level:: Medical - moderate - high VTE Device Contraindication: Treatment Not Indicated VTE Drug Contraindication: N/A - Med Ordered
[2024-04-01] MEDS: cefuroxime axetiL 500 MG TABLET PO (15:49)
[2024-04-02] VITALS: BP 137/65; PULSE 69; RESP 18; TEMP 36.3; O2SAT 96
[2024-04-02] MEDS: cefuroxime axetiL 500 MG TABLET PO ×2 (01:10→15:37)
[2024-04-02 04:00] VITALS: BP 143/69; PULSE 57; RESP 18; TEMP 36.1; O2SAT 99
[2024-04-02] MEDS: traMADoL HCL 50 MG TABLET PO (04:36)
[2024-04-02] MEDS: Milk of Magnesia 30 ML ORAL.SUSP PO (04:38)
[2024-04-02] MEDS: Omeprazole 40 MG CAPSULE.DR PO (05:03)
[2024-04-02 07:20] VITALS: BP 130/70; PULSE 59; RESP 16; TEMP 36.1; O2SAT 98
[2024-04-02] MEDS: Fluticasone/Umeclidinium/Vilanterol 200/62.5/25 BLST.W.DEV 1 PUFF INHALE (07:45)
[2024-04-02 07:47] VITALS: PULSE 56; RESP 18; O2SAT 95
[2024-04-02] MEDS: Magnesium Oxide 400 MG TABLET 200 MG PO (08:50)
[2024-04-02] MEDS: Rivaroxaban 10 MG TABLET PO (08:50)
[2024-04-02] MEDS: 0.9 % Sodium Chloride Flush 3 ML SYRINGE IVFLUSH (08:50)
[2024-04-02] MEDS: Famotidine 20 MG TABLET PO (08:51)
[2024-04-02] MEDS: predniSONE 20 MG TABLET PO (08:51)
[2024-04-02] MEDS: Furosemide 40 MG TABLET PO (08:51)
[2024-04-02] MEDS: Doxycycline Monohydrate 100 MG CAPSULE PO (08:51)
[2024-04-02] MEDS: Pregabalin 100 MG CAPSULE PO ×2 (08:51→15:37)
[2024-04-02] MEDS: Clopidogrel Bisulfate 75 MG TABLET PO (08:51)
[2024-04-02] MEDS: Tamsulosin HCL 0.4 MG CAPSULE 0.8 MG PO (08:51)
[2024-04-02] MEDS: Atorvastatin Calcium 40 MG TABLET PO (08:51)
[2024-04-02] MEDS: lisinopriL 5 MG TABLET PO (08:51)
--- NOTE | 2024-04-02 10:18 | P.CDIM_ITS ---
PROVIDER RESPONSE TEXT: To clarify, the appropriate diagnosis supported by the clinical indicators: Other (explain): no hx of chf crackles due to pnuemonia QUERY TEXT: PHYSICIAN'S DOCUMENTATION REQUEST Date of Query: 04/01/2024 08:03 AM EST Patient Name: Russell Saeed Admit Date: 03/29/2024 Dear Caity Reyes MD, A review of the medical record indicates additional documentation may be needed. Please review below and update the documentation accordingly. Clinical Indicators: PMH CHF On Lasix therapy crackles left base to mid lung 2 L home oxygen Please provide further specificity regarding the most likely type and acuity of CHF you are evaluatin g, treating, or monitoring. Systolic Please specify if Acute, Chronic, or Acute on chronic, or Unable to determine Diastolic Please specify if Acute, Chronic, or Acute on chronic, or Unable to determine Combined Systolic/Diastolic Please specify if Acute, Chronic, or Acute on chronic, or Unable to determine Other (explain) Clinically unable to determine (explain) Thank you, Lizz Andrade RN Use of terms such as suspected, likely, concern for, or probable (associated with a specific diagnosi s that is being evaluated, monitored, or treated as if it exists) are acceptable and can be coded in the inpatient se tting, when documented at the time of discharge. Please use your independent medical judgment in providing your response. THIS QUERY IS PART OF THE PERMANENT MEDICAL RECORD
--- NOTE | 2024-04-02 10:19 | PM.DS ---
DS: Providers Provider Date of Service: 04/02/24 Date of admission: 03/29/24 18:14 Date of discharge: 04/02/24 Primary care physician: Kiana Carrillo MD DS: Diagnosis Discharge Diagnosis (1) Shortness of breath: Status: Acute (2) Paroxysmal atrial fibrillation: Status: Acute (3) Left upper lobe pulmonary infiltrate: Status: Acute DS: Summary Hospital Course Hospital Course: History of presenting illness: Date of Service: 03/29/24 Chief Complaint: Shortness of breath 79-year-old male with PMH significant for CHF, COPD, 2 L home supplemental O2, VAD s/p right great toe amputation, AAA, paroxysmal atrial fibrillation on Xarelto, HTN, peripheral neuropathy, BPH who presented to ED by ambulance 03/28/2024 for complaints of left-sided chest pain and worsening shortness of breath. CTA demonstrated left upper lobe infiltrate. Patient was discharged on oral doxycycline but became worse over the course of the day prompting ambulance called to return to ER. In the emergency room he is found to be hypoxic and will be admitted for failed outpatient therapies. Hospital course: 79-year-old male with PMH significant for CHF, COPD, 2 L home supplemental O2, VAD s/p right great toe amputation, AAA, paroxysmal atrial fibrillation on Xarelto, HTN, peripheral neuropathy returns to the ER this evening hypoxic having failed outpatient therapies for left upper lobe pneumonia , therefore patient admitted to [facility] with a diagnosis of acute COPD exacerbation with chronic hypoxic respiratory failure and left lower lobe pneumonia, treated with IV ceftriaxone ,iv doxycycline, IV steroids and updraft treatment patient responded well to above treatment currently feeling better ambulating with minimal shortness of breath with exertion that is his baseline, no recurrent fevers no chills blood cultures x2 are negative elevated WBC due to steroids patient is being discharged home to finish a 5 day course of antibiotics and few more days of prednisone he is recommend to continue home oxygen 2 L during day and 4 L at night. In regard to paroxysmal atrial fibrillation he is continued on Xarelto and for peripheral vascular disease he was continued on Plavix. Patient was recently diagnosed for right foot cellulitis that has now resolved he finished the course of doxycycline. Time Attestation Discharge Coordination Time (in mins): 40 Quality: Safe Use of Opioids Does Pt have an Active Cancer Diagnosis on the Problem List?: No Quality: Stroke Does the patient have a stroke diagnosis?: No Physical Exam Vital Signs: Vital Signs: Last Vital Signs Temp 96.9 F 04/02/24 07:20 Pulse 56 04/02/24 07:47 Resp 18 04/02/24 07:47 BP 130/70 04/02/24 07:20 Pulse Ox 98 04/02/24 07:20 O2 Del Method Nasal Cannula 04/02/24 07:20 O2 Flow Rate 2 04/02/24 07:20 BMI result Body Mass Index 32.9 Const: Other: General: AxOx3, no acute distress Neck no JVD Resp: Lungs coarse breath sounds, no wheeze, no crackles CVS: Irregularly irregular rhythm GI: +BS, NT, no distention Neuro: non focal Extremities: Right leg s/p great toe amputation, no surrounding redness. Psych: Appropriate affect DS: Data Data Completed and Pending Labs on day of discharge: Preliminary micro results at discharge 03/29/24 18:39 Blood Culture - Preliminary Blood - Venous No growth after 48 hours. 03/29/24 18:39 Blood Culture - Preliminary Blood - Venous No growth after 48 hours. Discharge Plan Discharge Anticipated Discharge Date/Time: 04/02/24 10:10 Patient Disposition: Home, Self-Care Discharge Diagnosis: Acute COPD exacerbation/left upper lobe pneumonia Referrals: Kiana Carrillo MD [Primary Care Provider] - 1 Week Discharge Medications: New prednisone 20 mg Tablet 20 mg PO DAILY Qty: 3 0RF cefuroxime axetil 500 mg Tablet 500 mg PO Q12H Qty: 4 0RF Continued tramadol 50 mg tablet 50 mg PO Q6H PRN (Reason: pain) 28 Days Qty: 112 0RF (DME) Oxygen Home Use Kit See Rx Instructions .Route Qty: 1 0RF Rx Instructions: 2 L during daytime and 4 L at the time of sleep (DME) nebulizer accessories Kit See Rx Instructions .Route Qty: 1 0RF Rx Instructions: As directed albuterol sulfate 90 mcg/actuation HFA aerosol inhaler 2 puff inhalation Q6H PRN (Reason: shortness of breath or wheezing) Qty: 8.5 0RF lisinopril 5 mg tablet 5 mg PO DAILY triamcinolone acetonide 0.5 % cream 1 appl topical BID Qty: 15 0RF Rx Instructions: apply to right lower leg Trelegy Ellipta 200-62.5-25 mcg blister with device 1 ea INHALATION DAILY famotidine 20 mg tablet 20 mg PO DAILY atorvastatin 40 mg tablet 40 mg PO DAILY clopidogrel 75 mg tablet 75 mg PO DAILY tamsulosin 0.4 mg capsule 0.8 mg PO DAILY furosemide 40 mg tablet 40 mg PO DAILY pantoprazole 40 mg tablet,delayed release (DR/EC) 40 mg PO DAILY@0630 magnesium 250 mg tablet 250 mg PO DAILY dexlansoprazole 60 mg capsule,biphase delayed releas 60 mg PO DAILY Xarelto 10 mg tablet 10 mg PO DAILY Qty: 90 3RF Rx Instructions: for 35 days cyclobenzaprine 10 mg tablet 10 mg PO BEDTIME PRN (Reason: muscle spasm) Qty: 270 3RF pregabalin 100 mg capsule 100 mg PO TID Qty: 270 3RF Held celecoxib 100 mg capsule 100 mg PO BEDTIME Hold Instructions: Resume on 04/05/24. Discontinued doxycycline hyclate 100 mg tablet 100 mg PO BID Qty: 14 0RF Discharge Orders: Discharge Order (Routine); Ordered 04/02/24 Ordered By: Caity Reyes Diet: Advance to usual diet Activity on Discharge: As tolerated Stand Alone Forms: Patient Portal Discharge page Print Language: Armenian Care Plan Goals: Recent episode of Cellulitis resolved Health Concerns: Continue all home medications as before Take prednisone 20 mg daily with food for 3 days Take Ceftin 1 tablet twice daily for 2 days Continue home oxygen as before Plan of Treatment: Outpatient follow-up with primary care physician call for appointment Assessment: As above
--- NOTE | 2024-04-02 11:24 | MHC.CM.PN ---
Second IMM 04/02/24, Pt has been medically cleared, he will go home this afternoon via BLS, plan is: self care.
[2024-04-02 11:28] VITALS: BP 114/66; PULSE 87; RESP 16; TEMP 36.4; O2SAT 96
== END 2024-04-02 15:55 | disposition home or self-care (01) | DRG 194 ==
LOC: HO.ED 19:08 → HO.EDOVER 19:14 → HO.IMC 03-30 11:21
PROVIDERS: Admitting Provider Hospitalist; Emergency Provider Student in an Organized Health Care Education/Training Program; PCP Internal Medicine; Visit Provider Hospitalist
DX: J18.9 Pneumonia, unspecified organism (principal); J44.0 Chronic obstructive pulmonary disease with (acute) lower respiratory infection; J96.11 Chronic respiratory failure with hypoxia; J44.1 Chronic obstructive pulmonary disease with (acute) exacerbation; I48.0 Paroxysmal atrial fibrillation; G62.9 Polyneuropathy, unspecified; I73.9 Peripheral vascular disease, unspecified; F17.210 Nicotine dependence, cigarettes, uncomplicated; Z20.822 Contact with and (suspected) exposure to COVID-19; Z71.6 Tobacco abuse counseling; Z99.81 Dependence on supplemental oxygen; Z79.01 Long term (current) use of anticoagulants; Z79.02 Long term (current) use of antithrombotics/antiplatelets; Z79.899 Other long term (current) drug therapy
CPT/HCPCS: 0241U; 36415; 71045; 80048; 80053; 80307; 81001; 82803; 83605; 84484; 85025; 87040; 93005; 94640; 99285; J0696; J2060; J2919

== ENCOUNTER → 2024-03-29 14:21 | Outpatient (BNV) | payer MEDICARE, SELFPAY | PROVIDERS: Admitting Provider Hospitalist; Emergency Provider Student in an Organized Health Care Education/Training Program; PCP Internal Medicine; Visit Provider Internal Medicine Cardiovascular Disease | DX: I44.0 Atrioventricular block, first degree (principal); I45.2 Bifascicular block; I49.1 Atrial premature depolarization | CPT/HCPCS: 93010 ==

== ENCOUNTER → 2024-03-29 14:24 | Outpatient (BNV) | payer MEDICARE, SELFPAY | PROVIDERS: Emergency Provider Student in an Organized Health Care Education/Training Program; PCP Internal Medicine; Visit Provider Radiology Diagnostic Radiology | DX: R06.02 Shortness of breath (principal) | CPT/HCPCS: 71045 ==

== ENCOUNTER → 2024-03-29 15:08 | Outpatient (BNV) | payer MEDICARE, SELFPAY | PROVIDERS: Emergency Provider Student in an Organized Health Care Education/Training Program; PCP Internal Medicine; Visit Provider Hospitalist | DX: R91.8 Other nonspecific abnormal finding of lung field (principal); I48.0 Paroxysmal atrial fibrillation; J44.9 Chronic obstructive pulmonary disease, unspecified; I73.9 Peripheral vascular disease, unspecified | CPT/HCPCS: 99223 ==

== ENCOUNTER 2024-03-29 18:14 | Outpatient (BNV) | payer MEDICARE, SELFPAY | END 2024-03-30 04:56 | PROVIDERS: Admitting Provider Hospitalist; Emergency Provider Student in an Organized Health Care Education/Training Program; PCP Internal Medicine; Visit Provider Internal Medicine Cardiovascular Disease | DX: I45.2 Bifascicular block (principal) | CPT/HCPCS: 93010 ==

== ENCOUNTER → 2024-04-21 13:17 | Outpatient (BNVA) | payer MEDICARE, MEDICAID, SELFPAY | PROVIDERS: PCP Internal Medicine; Visit Provider Nurse Practitioner Family | DX: J44.9 Chronic obstructive pulmonary disease, unspecified (principal); R06.02 Shortness of breath; F17.210 Nicotine dependence, cigarettes, uncomplicated; R91.8 Other nonspecific abnormal finding of lung field; Z99.81 Dependence on supplemental oxygen | CPT/HCPCS: 99212 ==

== ENCOUNTER 2024-04-22 11:25 | Outpatient (REF) | payer MEDICARE, MEDICAID, SELFPAY ==
--- NOTE | ~2024-04-22 | XR_ITS ---
EXAMINATION: XR CHEST CLINICAL INFORMATION: R91.8 - Other nonspecific abnormal finding of lung field COMPARISON: 03/29/2024, 03/28/2024. TECHNIQUE: 2 views of the chest were obtained. FINDINGS: The cardiac, hilar, and mediastinal contours are normal. The lungs are clear bilaterally. There is no pneumothorax or pleural effusion. There is no focal osseous or soft tissue abnormality. Degenerative changes and thoracolumbar dextroconvex scoliosis of the spine. Cholecystectomy clips noted. XR/XR chest 2V IMPRESSION: No active pulmonary disease. Electronically signed by: Sunny Avendano MD 04/22/2024 01:28 PM [facility]
== END 2024-04-22 11:26 | disposition home or self-care (01) ==
LOC: HO.XRAY 11:25
PROVIDERS: PCP Internal Medicine; Referring Provider Nurse Practitioner Family; Visit Provider Surgery Vascular Surgery
DX: I73.9 Peripheral vascular disease, unspecified (principal); I71.43 Infrarenal abdominal aortic aneurysm, without rupture; R91.8 Other nonspecific abnormal finding of lung field; M79.604 Pain in right leg; Z89.411 Acquired absence of right great toe; Z87.01 Personal history of pneumonia (recurrent); Z99.81 Dependence on supplemental oxygen; Z98.890 Other specified postprocedural states
CPT/HCPCS: 71046; 99212

== ENCOUNTER 2024-04-22 11:25 | Outpatient (AMB) | payer MEDICARE, MEDICAID, SELFPAY ==
[2024-04-22 11:33] VITALS: BMI 31.0
--- NOTE | 2024-04-22 11:33 | MHC.OFFVIS ---
Vital Signs 04/22/24 11:33 Height 5 ft 11 in Weight 222 lb BMI 31.0 Intake Visit Reasons: follow up s/p Arterial US 02/19/24 Intake Note: follow up arterial US 02/19/24 for Right LE cramping and pain w/ hx of Right Angio and Right Great toe amp 2 yrs ago in [place]. Pt has questions of cardiac issues and respiratory issues. Accompanied by: niece Allergies lemon Allergy (Verified 04/22/24 11:46) Anaphylaxis morphine Allergy (Verified 04/22/24 11:46) Anaphylaxis vancomycin Allergy (Verified 04/22/24 11:46) Chest Pain HPI HPI follow up s/p Arterial US 02/19/24: Details: Very pleasant 79-year-old gentleman presents for follow-up evaluation regarding his vascular care. Had undergone endovascular intervention along with great toe amp of the right lower extremity [place]. Of note most recently he was hospitalized for pneumonia. He has followed up with pulmonology regarding this. He is on oxygen and was treated with doxycycline on discharge for a left upper lobe infiltrate. [facility] Social History (Updated 04/22/24 @ 11:48 by HENRI Kruse) Household Members: Other Household Members Other:: neice Housing: House Do you presently have visiting nurse or other home services: No Patient Tobacco Use Status: Current everyday Tobacco user Tobacco use type: Cigarette Cigarettes Per Day: 1 Years Smoked: 50 plus e-Cigarette/Vaping Use: Former Use Second Hand Smoke Exposure: No service: Yes Current occupational status: retired Cognitive needs: No Hearing needs: Yes Vision needs: Yes Review of Systems Const All systems reviewed & are unremarkable except as noted in HPI and below Reports no additional complaints ENT Reports Normal hearing present Card Denies chest pain, Denies chest pain at rest, Denies chest pain with activity and Denies pedal edema Resp Denies cough GI Denies abdominal pain Musc Denies abnormal gait, Denies muscle cramps and Denies radiating pain into limb Skin/Breast Denies skin ulcer and Denies wounds Neuro Reports Normal hearing present and Denies abnormal gait Psych Reports no additional complaints Physical Exam Vital Signs: BMI result Body Mass Index 31.0 Const General: cooperative, healthy appearing and comfortable Orientation/consciousness: oriented to person, oriented to place and oriented to time HEENT Head: Yes normal to inspection Neck Neck: Yes normal visual inspection Carotids: no bruits Chest Chest palpation & inspection: normal inspection of the chest Resp Effort & Inspection: normal respiratory effort and able to speak in complete sentences Auscultation: clear to auscultation bilaterally, no crackles, no rales, no rhonchi and no wheezes Cardio Other: Bilateral DP signals Rate: regular rate Rhythm: regular rhythm Heart sounds: S1 normal heart sound present and S2 normal heart sound present Bruits: no carotid bruits Peripheral pulses: Peripheral pulses 2+ throughout GI Inspection: Yes normal to inspection Skin Wounds: no wounds Hair: normal Neuro General: oriented to person, oriented to place and oriented to time Cranial nerves: Yes CN's II-XII intact bilaterally and Yes Normal hearing present Cognition (Neuro): normal cognition Motor exam (neuro): 5/5 motor strength present throughout Extrem Other: venous exam: No significant superficial varicosities or spider telangiectasias, minimal edema General: No clubbing, No cyanosis and No edema Psych Appearance: grossly normal Mental Status: mental status grossly normal Speech and movement: Normal speech and movement present Results Reviewed Results Reviewed: Noninvasive arterial testing from 02/19/2024 demonstrates IZABELA on the right of 0.83 and on the left of 0.95. This may be artifactually elevated due to his calcified vessels as he does have monophasic waveforms from SFA on down. Written report and images were reviewed CT angio of abdomen and pelvis on 12/31/2023 demonstrates aortic aneurysm of 4 cm. Assessment & Plan Assessment & Plan (1) PAD (peripheral artery disease): Comment: 2021 - right lower extremity angiogram x2 in [place] 2021 - right great toe amputation and [place] Code(s): I73.9 - Peripheral vascular disease, unspecified Category: Medical Plan: In short patient has stable PA D. I did review the pathophysiology of peripheral vascular disease with the patient. At the current time would like to manage him as conservatively as possible. He does not have any active ulcerations or wounds. I do think his pulmonary and cardiac issues may be more pressing at the current time. I did schedule him for a six-month surveillance arterial ultrasound. Should there be any interval issues happy to see him back sooner. Thank you for allowing us to assist in his care. If there are any questions or concerns please do not hesitate to contact us. (2) Infrarenal abdominal aortic aneurysm (AAA) without rupture: Code(s): I71.43 - Infrarenal abdominal aortic aneurysm, without rupture Category: Medical Plan: In short patient has radiologic evidence of a AAA on CT scan dated 12/31/2023 of 4 cm. We have discussed the pathophysiology of aortic aneurysms and the risk of ruptures. We have discussed rupture risk based on size. In addition we have discussed conservative measures and risk factor modification for prevention of increase in size of the aneurysm. We will discuss surveillance follow-up on his next visit and should be a proximally 1 year from the 12/31/2023 study. Orders: Orders US arterial duplex LE BI 6 Months I73.9 - Peripheral vascular disease, unspecified Coding Level of Care Code Est Pt Level 4 (00918) Complex EM visit Add On G2211 Diagnoses PAD (peripheral artery disease) I73.9 Infrarenal abdominal aortic aneurysm (AAA) without rupture I71.43
== END 2024-04-22 12:14 | disposition home or self-care (01) ==
PROVIDERS: PCP Internal Medicine; Visit Provider Surgery Vascular Surgery
DX: I73.9 Peripheral vascular disease, unspecified (principal); I71.43 Infrarenal abdominal aortic aneurysm, without rupture
CPT/HCPCS: 99214; G2211

== ENCOUNTER → 2024-04-22 12:34 | Outpatient (BNV) | payer MEDICARE, MEDICAID, SELFPAY | PROVIDERS: PCP Internal Medicine; Referring Provider Nurse Practitioner Family; Visit Provider Radiology Diagnostic Radiology | DX: R91.8 Other nonspecific abnormal finding of lung field (principal) | CPT/HCPCS: 71046 ==

== ENCOUNTER → 2024-04-26 15:42 | Outpatient (BNVA) | payer MEDICARE, MEDICAID, SELFPAY | PROVIDERS: PCP Internal Medicine; Visit Provider Internal Medicine | DX: E11.9 Type 2 diabetes mellitus without complications (principal); I25.10 Atherosclerotic heart disease of native coronary artery without angina pectoris; I50.9 Heart failure, unspecified; J44.9 Chronic obstructive pulmonary disease, unspecified; M54.9 Dorsalgia, unspecified; G89.29 Other chronic pain; R06.00 Dyspnea, unspecified; F17.210 Nicotine dependence, cigarettes, uncomplicated; Z99.81 Dependence on supplemental oxygen; Z79.899 Other long term (current) drug therapy | CPT/HCPCS: 99212 ==

== ENCOUNTER → 2024-05-06 11:18 | Outpatient (BNV) | payer MEDICARE, SELFPAY | PROVIDERS: PCP Internal Medicine; Visit Provider Internal Medicine Cardiovascular Disease | DX: I42.2 Other hypertrophic cardiomyopathy (principal); I35.0 Nonrheumatic aortic (valve) stenosis; I35.8 Other nonrheumatic aortic valve disorders; I34.81 Nonrheumatic mitral (valve) annulus calcification | CPT/HCPCS: 93306 ==

== ENCOUNTER 2024-06-01 13:39 | Outpatient (REF) | payer MEDICARE, SELFPAY ==
[2024-06-01 14:55] LABS: Anion Gap 14 (12-20); Blood Urea Nitrogen 24 mg/dL (9-16); Calcium 9.1 mg/dL (8.4-10.2); Carbon Dioxide 29 mmol/L (22-29); Chloride 104 mmol/L (96-108); Estimated Glomerular Filt Rate > 60; Glucose Random 114 mg/dL (60-115); Potassium 3.6 mmol/L (3.3-5.1); Sodium 143 mmol/L (135-145)
== END 2024-06-01 13:40 | disposition home or self-care (01) ==
LOC: HO.LAB 13:39
PROVIDERS: PCP Internal Medicine; Visit Provider Internal Medicine
DX: J44.9 Chronic obstructive pulmonary disease, unspecified (principal); M51.372 Other intervertebral disc degeneration, lumbosacral region with discogenic back pain and lower extremity pain; G89.29 Other chronic pain; I73.9 Peripheral vascular disease, unspecified; E11.9 Type 2 diabetes mellitus without complications; I25.10 Atherosclerotic heart disease of native coronary artery without angina pectoris; Z79.891 Long term (current) use of opiate analgesic; Z99.81 Dependence on supplemental oxygen; R06.02 Shortness of breath
CPT/HCPCS: 36415; 80048; 99212

== ENCOUNTER 2024-06-01 16:06 | Outpatient (AMB) | payer MEDICARE, MEDICAID, SELFPAY ==
--- NOTE | 2024-06-01 15:13 | A.OFFPC_ITS ---
Intake Visit Reasons: 4 weeks-f/up meds Allergies lemon Allergy (Verified 06/04/24 14:52) Anaphylaxis morphine Allergy (Verified 06/04/24 14:52) Anaphylaxis vancomycin Allergy (Verified 06/04/24 14:52) Chest Pain Tobacco use date assessed: 01/09/24 Dental Screening Dental Screen Date: 01/09/24 HPI HPI Comments History of Present Illness Details The patient is a 79 year old male with a past medical history of type 2 diabetes, CAD, CHF, COPD on 2 L home 02, chronic back pain presenting for follow up Hospitalized end of February for pneumonia, COPD exacerbation. Has had appropriate follow up with pulmonary. Echo ordered given history of CHF, persistent shortness of breath. Cardiology appt pending Hospitalized 02/26-03/02/24 at [facility]. presented to the ER with right foot swelling, redness and pain for 2 days. In ED received vancomycin. Had feels that arms and chest were on fire. Got tightness and heaviness in the chest. Became hypotensive to 62/36. Vanc stopped. xray foot without evidence of osteomyelitis. Went into afib. Got IVF, zosyn, doxyccyline. Continued on IV doxycycline, IV steroids and Lasix with good response. DCd on additional po 5 days of doxycycline COPD oxygen-dependent. On trelegy. Following with pulm. using CPAP. CV: CHF, CAD, h/o afib-believes he had cardiac stents. Also reports a history of blood clots in the leg. Has chronic toe/foot wounds, sacral wound-following vascular and wound. Says he is on aspirin, plavix and xarelto as well as lipitor, lasix. Lasix currently at 40mg daily History of chronic pain-lumbar, neck. Says past medications have included methadone, oxycodone, vicodin. Currently on tramadol, lyrica, flexeril. Pain is not controlled. referral to pain management placed. Will start xtampza and short acting oxycodone for pain. stop tramadol. Flexeril and lyrica will be continued ROS No fevers Chronic sacral, extremity wounds PHYSICAL EXAM: GENERAL: Alert and oriented x 3. NAD EYES: EOMI. Anicteric. HENT: Moist mucous membranes. No scleral icterus. No cervical lymphadenopathy. LUNGS: Clear to auscultation bilaterally. CARDIOVASCULAR: Regular rate and rhythm. No murmur. No JVD. ABDOMEN: Soft, non-tender +bs EXTREMITIES: Bilateral chronic distal peripheral vascular changes SKIN: Warm NEUROLOGIC: No focal neurological deficits. CN II-XII grossly intact PSYCHIATRIC: Cooperative. Appropriate mood and affect ON LICENSE OF [facility] Social History Household Members: Other Household Members Other:: neice Housing: House Do you presently have visiting nurse or other home services: No Patient Tobacco Use Status: Current everyday Tobacco user Tobacco use type: Cigarette Cigarettes Per Day: 1 Years Smoked: 50 plus e-Cigarette/Vaping Use: Former Use Second Hand Smoke Exposure: No service: Yes Current occupational status: retired Cognitive needs: No Hearing needs: Yes Vision needs: Yes Questionnaire Thrive Questionnaire Date Thrive assessed: 01/09/24 ANTONIA-7 AMB Questionnaire ANTONIA-7 Date ANTONIA - 7 assessed: 01/09/24 Source: Developed by Drs. Russell Crouch, Tania Raya, Graham Luna and colleagues, with an educational jordan from [employer]. Physical exam (Primary Care) Tobacco/Smoking Status: Tobacco use Status Tobacco use date assessed 01/09/24 06/01/24 15:13 Patient Tobacco Use Status Current everyday Tobacco 06/01/24 15:13 Tobacco use type Cigarette 06/01/24 15:13 e-Cigarette/Vaping Use Former Use 06/01/24 15:13 Thrive Assessment: Date of Thrive Assessment Date Thrive assessed 01/09/24 06/01/24 15:13 Coding Level of Care Code Est Pt Level 4 (29951) Diagnoses Chronic obstructive pulmonary disease, unspecified COPD type J44.9 COPD type: unspecified COPD Degeneration of intervertebral disc of lumbosacral region with discogenic back pain and lower extremity pain M51.372 Disc-related pain type: discogenic back pain and lower extremity pain PAD (peripheral artery disease) I73.9 Assessment & Plan Assessment & Plan (1) COPD (chronic obstructive pulmonary disease): Code(s): J44.9 - Chronic obstructive pulmonary disease, unspecified Category: Medical Qualifiers: COPD type: unspecified COPD Qualified Code(s): J44.9 - Chronic obstructive pulmonary disease, unspecified Plan: without exacerbation continue close pulmonary follow up (2) DDD (degenerative disc disease), lumbosacral: Code(s): M51.379 - Other intervertebral disc degeneration, lumbosacral region without m ention of lumbar back pain or lower extremity pain Category: Medical Qualifiers: Disc-related pain type: discogenic back pain and lower extremity pain Qualified Code(s): M51.372 - Other intervertebral disc degeneration, lumbosacral region with discogenic back pain and lower extremity pain Plan: Med changes as per HPI (3) PAD (peripheral artery disease): Comment: 2021 - right lower extremity angiogram x2 in [place] 2021 - right great toe amputation and [place] Code(s): I73.9 - Peripheral vascular disease, unspecified Category: Medical Plan: follow up vascular Medications: New oxycodone myristate CR-ER (Xtampza ER) must administer with a meal/food; Partial Fill upon patient request. 18 mg PO BID 56 caps 0RF naloxone 4 mg/actuation (Narcan) spray 1 dose into ONE nostril; alternate nostrils w each dose until help arrives 4 mg intranasal Q2M 2 ea 1RF Changed From oxycodone Partial Fill upon patient request. 5 mg PO QID PRN 112 tabs 0RF pain To oxycodone Partial Fill upon patient request. 5 mg PO .every 4 hour PRN 168 tabs 0RF pain Discontinued oxycodone myristate CR-ER (Xtampza ER) must administer with a meal/food; Partial Fill upon patient request. Discontinued Reason: Doctor's Order 9 mg PO Q12H 56 caps 0RF
== END 2024-06-01 17:05 | disposition home or self-care (01) ==
LOC: HO.HMCFM 16:06
PROVIDERS: PCP Internal Medicine; Visit Provider Internal Medicine
DX: J44.9 Chronic obstructive pulmonary disease, unspecified (principal); M51.372 Other intervertebral disc degeneration, lumbosacral region with discogenic back pain and lower extremity pain; I73.9 Peripheral vascular disease, unspecified

== ENCOUNTER 2024-06-04 13:54 | Outpatient (AMB) | payer MEDICARE, SELFPAY ==
--- NOTE | 2024-06-04 14:52 | MHC.PC.OV ---
Vital Signs 06/04/24 15:00 Height 5 ft 11 in Weight 230 lb BMI 32.1 BP 126/60 Blood Pressure Location Rt brachial Position Sitting Respiration 16 Pulse 124 H Pulse Source Pulse Oximeter Temp 98.2 F Temp Source Oral Pulse Oximetry (%) 95 Oxygen Delivery Method Room Air Intake Visit Reasons: wound on hand Intake Note: Wound on left hand about a week Porcelain Enameling Supervisor Required: No Allergies lemon Allergy (Verified 06/04/24 14:52) Anaphylaxis morphine Allergy (Verified 06/04/24 14:52) Anaphylaxis vancomycin Allergy (Verified 06/04/24 14:52) Chest Pain Medication List - Last Reconciled 06/06/24 by Kiana Carrillo MD albuterol sulfate 90 mcg/actuation 2 puffs inhalation Q6H PRN amoxicillin-pot clavulanate 875-125 mg 1 tab PO Q12H atorvastatin 40 mg PO DAILY blood sugar diagnostic (FreeStyle Lite Strips) once daily celecoxib 100 mg PO BEDTIME clopidogrel 75 mg PO DAILY cyclobenzaprine 10 mg PO TID PRN dexlansoprazole 60 mg PO DAILY [Diabetic shoes As directed] doxycycline hyclate 100 mg PO BID famotidine 20 mg PO DAILY qqwtknivjeu-ssusdsdlr-zgjigszl 200-62.5-25 mcg (Trelegy Ellipta) 1 ea inhalation DAILY FreeStyle Lancets (lancets) once daily NS FreeStyle Lite Meter (blood-glucose meter) As directed NS furosemide 40 mg PO DAILY hydroxyzine HCl 25 mg PO TID PRN ipratropium-albuterol 0.5 mg-3 mg(2.5 mg base)/3 mL 3 mL inhalation Q6H PRN lisinopril 10 mg PO DAILY magnesium 250 mg PO DAILY naloxone 4 mg/actuation (Narcan) 4 mg intranasal Q2M nebulizer accessories As directed oxycodone 5 mg PO .every 4 hour PRN oxycodone myristate CR-ER (Xtampza ER) 18 mg PO BID Oxygen Home Use 2 L during daytime and 4 L at the time of sleep pantoprazole 40 mg PO DAILY@0630 prednisone 20 mg PO DAILY prednisone Take pregabalin 100 mg PO TID rivaroxaban (Xarelto) 10 mg PO DAILY tamsulosin 0.8 mg (2 x 0.4 mg) PO DAILY triamcinolone acetonide 0.5% 1 appl topical BID triamcinolone acetonide 0.1% 1 appl topical DAILY Tobacco use date assessed: 01/09/24 Dental Screening Dental Screen Date: 01/09/24 HPI HPI Comments History of Present Illness Details The patient is a 79 year old male with a past medical history of type 2 diabetes, CAD, CHF, COPD on 2 L home 02, chronic back pain presenting for rash left hand Over the past two weeks has rash that started between his fingers then spread over the lateral back of the hand. Its itchy. some minimal clear fluid after itching. Known eczema Hospitalized end of February for pneumonia, COPD exacerbation. Has had appropriate follow up with pulmonary. Echo ordered given history of CHF, persistent shortness of breath. Cardiology appt pending Hospitalized 02/26-03/02/24 at [facility] [place]. presented to the ER with right foot swelling, redness and pain for 2 days. In ED received vancomycin. Had feels that arms and chest were on fire. Got tightness and heaviness in the chest. Became hypotensive to 62/36. Vanc stopped. xray foot without evidence of osteomyelitis. Went into afib. Got IVF, zosyn, doxyccyline. Continued on IV doxycycline, IV steroids and Lasix with good response. DCd on additional po 5 days of doxycycline COPD oxygen-dependent. On trelegy. Following with pulm. using CPAP. CV: CHF, CAD, h/o afib-believes he had cardiac stents. Also reports a history of blood clots in the leg. Has chronic toe/foot wounds, sacral wound-following vascular and wound. Says he is on aspirin, plavix and xarelto as well as lipitor, lasix. Lasix currently at 40mg daily History of chronic pain-lumbar, neck. Says past medications have included methadone, oxycodone, vicodin. Currently on tramadol, lyrica, flexeril. Pain is not controlled. referral to pain management placed. Will start xtampza and short acting oxycodone for pain. stop tramadol. Flexeril and lyrica will be continued ROS see HPI PHYSICAL EXAM: GENERAL: Alert and oriented x 3. NAD EYES: EOMI. Anicteric. HENT: Moist mucous membranes. No scleral icterus. No cervical lymphadenopathy. LUNGS: Clear to auscultation bilaterally. CARDIOVASCULAR: Regular rate and rhythm. No murmur. No JVD. ABDOMEN: Soft, non-tender +bs EXTREMITIES: Bilateral chronic distal peripheral vascular changes SKIN: Patch of confluent dishydrotic eczema on the dorsal hand NEUROLOGIC: No focal neurological deficits. CN II-XII grossly intact PSYCHIATRIC: Cooperative. Appropriate mood and affect [facility] Social History Household Members: Other Household Members Other:: neice Housing: House Do you presently have visiting nurse or other home services: No Patient Tobacco Use Status: Current everyday Tobacco user Tobacco use type: Cigarette Cigarettes Per Day: 1 Years Smoked: 50 plus e-Cigarette/Vaping Use: Former Use Second Hand Smoke Exposure: No service: Yes Current occupational status: retired Cognitive needs: No Hearing needs: Yes Vision needs: Yes Questionnaire Thrive Questionnaire Date Thrive assessed: 01/09/24 I am a: Patient What is your living situation today?: I have a steady place to live Within the past 12 months, did the food you bought not last and you didn't have the money to get more?: Sometimes True Within the past 12 months, did you worry whether your food would run out before you got money to buy more?: Sometimes True Do you have trouble paying for medicines?: Yes Do you have trouble getting transportation to medical appointments?: Yes Do you have trouble paying your heating and electricity bill?: Yes Do you have trouble taking care of your child, family member or friend?: Yes Do you have trouble with day-to-day activities such as bathing, preparing meals, shopping, managing finances, etc.?: Yes Are you currently unemployed and looking for a job?: No Are you interested in more education?: No Currently or been in a relationship where the following occur: I choose not to answer THRIVE Score: 4 ANTONIA-7 AMB Questionnaire ANTONIA-7 Date ANTONIA - 7 assessed: 01/09/24 Source: Developed by Drs. Russell Crouch, Tania Raya, Graham Luna and colleagues, with an educational jordan from [employer]. Physical exam (Primary Care) Vital Signs: Last Vital Signs Temp 98.2 F 06/04/24 15:00 Pulse 124 H 06/04/24 15:00 Resp 16 06/04/24 15:00 BP 126/60 03/07/25 15:00 Pulse Ox 95 06/04/24 15:00 Oxygen Delivery Method Room Air 06/04/24 15:00 BMI result Body Mass Index 32.1 Tobacco/Smoking Status: Tobacco use Status Tobacco use date assessed 01/09/24 06/04/24 14:55 Patient Tobacco Use Status Current everyday Tobacco 06/04/24 14:55 Tobacco use type Cigarette 06/04/24 14:55 e-Cigarette/Vaping Use Former Use 06/04/24 14:55 Thrive Assessment: Date of Thrive Assessment Date Thrive assessed 01/09/24 06/04/24 14:55 Currently or been in a relationship where the following occur: I choose not to answer Coding Level of Care Code Est Pt Level 4 (14004) Diagnoses Rash R21 Diabetic polyneuropathy associated with type 2 diabetes mellitus E11.42 Diabetes mellitus complication detail: diabetic polyneuropathy Diabetes mellitus type: type 2 Assessment & Plan Assessment & Plan (1) Rash: Code(s): R21 - Rash and other nonspecific skin eruption Category: Medical Plan: Dishydrotic eczema without evidence of superimposed infection Oral prednisone, topical steroid Will call for persistent or worsening symptoms (2) Diabetic neuropathy: Code(s): E11.40 - Type 2 diabetes mellitus with diabetic neuropathy, unspecified Qualifiers: Diabetes mellitus complication detail: diabetic polyneuropathy Diabetes mellitus type: type 2 Qualified Code(s): E11.42 - Type 2 diabetes mellitus with diabetic polyneuropathy Plan: diabetic shoes ordered Medications: New prednisone Take 45 tabs 0RF triamcinolone acetonide 0.1% to rash of the hand 1 appl topical DAILY 30 grams 0RF [Diabetic shoes] As directed 1 ea 0RF E11.40 - Type 2 diabetes mellitus with diabetic neuropathy, unspecified hydroxyzine HCl 25 mg PO TID PRN 90 tabs 0RF itching
[2024-06-04 15:00] VITALS: BP 126/60; PULSE 124; RESP 16; TEMP 36.8; O2SAT 95; BMI 32.1
== END 2024-06-04 16:18 | disposition home or self-care (01) ==
PROVIDERS: PCP Internal Medicine; Visit Provider Internal Medicine
DX: R21 Rash and other nonspecific skin eruption (principal); E11.42 Type 2 diabetes mellitus with diabetic polyneuropathy

== ENCOUNTER 2024-06-04 13:54 | Outpatient (AMB) | payer MEDICARE, MEDICAID, SELFPAY ==
[2024-06-04 13:58] VITALS: BP 122/68; PULSE 104; O2SAT 98; BMI 32.1
--- NOTE | 2024-06-04 13:58 | MHC.OFFVIS ---
Vital Signs 06/04/24 13:58 Height 5 ft 11 in Weight 230 lb BMI 32.1 BP 122/68 Blood Pressure Location Lt brachial Position Sitting Pulse 104 H Pulse Source Pulse Oximeter Pulse Oximetry (%) 98 Oxygen Delivery Method Room Air Intake Visit Reasons: COPD Blood Bank Specialist Required: No Road Advisor: Road Advisor offered & declined Accompanied by: geotechnical engineering technician Allergies lemon Allergy (Verified 06/04/24 14:52) Anaphylaxis morphine Allergy (Verified 06/04/24 14:52) Anaphylaxis vancomycin Allergy (Verified 06/04/24 14:52) Chest Pain Medication List - Last Reconciled 06/04/24 by Omaira Coles LPN albuterol sulfate 90 mcg/actuation 2 puffs inhalation Q6H PRN atorvastatin 40 mg PO DAILY blood sugar diagnostic (FreeStyle Lite Strips) once daily celecoxib 100 mg PO BEDTIME clopidogrel 75 mg PO DAILY cyclobenzaprine 10 mg PO TID PRN dexlansoprazole 60 mg PO DAILY doxycycline hyclate 100 mg PO BID famotidine 20 mg PO DAILY huiazwauunv-pbdijcvbb-ubklhmnz 200-62.5-25 mcg (Trelegy Ellipta) 1 ea inhalation DAILY FreeStyle Lancets (lancets) once daily NS FreeStyle Lite Meter (blood-glucose meter) As directed NS furosemide 40 mg PO DAILY ipratropium-albuterol 0.5 mg-3 mg(2.5 mg base)/3 mL 3 mL inhalation Q6H PRN lisinopril 10 mg PO DAILY magnesium 250 mg PO DAILY naloxone 4 mg/actuation (Narcan) 4 mg intranasal Q2M nebulizer accessories As directed oxycodone 5 mg PO .every 4 hour PRN oxycodone myristate CR-ER (Xtampza ER) 18 mg PO BID Oxygen Home Use 2 L during daytime and 4 L at the time of sleep pantoprazole 40 mg PO DAILY@0630 prednisone 20 mg PO DAILY pregabalin 100 mg PO TID rivaroxaban (Xarelto) 10 mg PO DAILY tamsulosin 0.8 mg (2 x 0.4 mg) PO DAILY triamcinolone acetonide 0.5% 1 appl topical BID HPI HPI COPD: Details: Russell is a pleasant 79 year old male, current minimal smoker, with 100 pack year history, with underlying COPD, BUTCH noncompliant with CPAP, CHF, HTN, HLD, AAA, GERD, and PVD. He is accompanied by his nephew and niece, ambulating with a walker. He reports longstanding history of COPD currently managed on Trelegy and albuterol MDI BID with moderate effect. A prescription for a nebulizer was sent previously, however patient states he received a call saying it would be delivered in a few days, two weeks ago and is yet to have it delivered. He did receive the flutter valve which he has been using QID. He continues to report dyspnea on exertion and continues with productive cough with brown sputum with associated wheezing. At the last visit, he was treated with doxycycline however no change in cough. Of note, he was admitted to [facility] [place] 03/29-04/02 for PNA and COPD exacerbation. [facility] Social History Household Members: Other Household Members Other:: neice Housing: House Do you presently have visiting nurse or other home services: No Patient Tobacco Use Status: Current everyday Tobacco user Tobacco use type: Cigarette Cigarettes Per Day: 1 Years Smoked: 50 plus e-Cigarette/Vaping Use: Former Use Second Hand Smoke Exposure: No service: Yes Current occupational status: retired Cognitive needs: No Hearing needs: Yes Vision needs: Yes Review of Systems Const Denies chills, Denies excessive sweating, Denies fever(s), Denies headache(s) and Denies night sweats Eyes Denies dry eyes, Denies irritation and Denies itchy eyes ENT Reports Normal hearing present, Denies headache(s), Denies nasal congestion, Denies nasal discharge, Denies post nasal drip and Denies sore throat Card Denies chest pain, Denies chest pain at rest, Denies chest pain with activity, Denies claudication, Reports dyspnea on exertion, Denies orthopnea and Denies paroxysmal nocturnal dyspnea Resp Reports change in phlegm color, Reports chest congestion, Reports cough, Denies hemoptysis, Denies excessive phlegm production, Denies pain on inspiration, Denies pain with cough, Reports dyspnea on exertion, Denies stridor and Reports wheezing Musc Denies myalgias Neuro Reports Normal hearing present and Denies headache(s) Endo Denies excessive sweating Ken/Lymph Denies lymphadenopathy Aller/Immun Denies itchy eyes, Denies seasonal rhinorrhea and Reports wheezing Physical Exam Vital Signs: Last Vital Signs Pulse 104 H 06/04/24 13:58 BP 122/68 06/04/24 13:58 Pulse Ox 98 06/04/24 13:58 Oxygen Delivery Method Room Air 06/04/24 13:58 BMI result Body Mass Index 32.1 Const General: cooperative, healthy appearing, comfortable, no acute distress, well developed and alert Nutritional Appearance: obese Orientation/consciousness: patient oriented x3 Limitations: ambulation with walker HEENT Head: Yes normal to inspection, Yes normocephalic and Yes atraumatic Ears: hearing grossly normal bilaterally and external ears normal Eyes General: appearance normal, both eyes and all related structures Eyelids: Yes eyelids normal Sclerae: sclerae normal EOM: EOMs intact bilaterally Neck Neck: Yes normal visual inspection and Yes no lymphadenopathy Lymphatic: no lymphadenopathy noted Chest Chest palpation & inspection: normal inspection of the chest Resp Effort & Inspection: normal respiratory effort, able to speak in complete sentences, no audible wheezes, Actively coughing, no stridor, not tachypneic, no tripod positioning and no use of accessory muscles Auscultation: crackles (faint inspiratory LLL) and diminished lung sounds Cardio Jugular venous distension: no JVD Rate: regular rate Rhythm: regular rhythm Skin Other: warm, dry Neuro General: patient oriented x3 Cranial nerves: Yes Normal hearing present Cognition (Neuro): normal cognition Psych Appearance: grossly normal and well kempt Speech and movement: Normal speech and movement present and Clear speech present Affect: normal affect Attitude: cooperative Thought process: Normal thought process present Thought content: Normal thought content present Insight: Good insight present (Psych) Judgement: Good judgement present (Psych) Assessment & Plan Assessment & Plan (1) COPD (chronic obstructive pulmonary disease): Code(s): J44.9 - Chronic obstructive pulmonary disease, unspecified Category: Medical Qualifiers: COPD type: unspecified COPD Qualified Code(s): J44.9 - Chronic obstructive pulmonary disease, unspecified (2) Nicotine dependence, cigarettes, uncomplicated: Code(s): F17.210 - Nicotine dependence, cigarettes, uncomplicated Category: Medical (3) Shortness of breath: Code(s): R06.02 - Shortness of breath Category: Medical Plan Will send Augmentin for bronchitic symptoms and send for CXR given inspiratory crackles of LLL. Overnight oximetry reportedly performed, awaiting results. Patient awaiting nebulizer to be delivered. We also discussed h/o CHF with persistent BLE edema and may have a cardiac component contributing to dyspnea, he does have an upcoming appt with cardiology in Friday. All questions were answered and patient is in agreement of plan. Will follow up in 2-4 weeks or sooner if needed. Orders: Orders XR chest 2V Today R05.9 - Cough, unspecified Immunoglobulin E Today Z91.09 - Other allergy status, other than to drugs and biological substances Resp Allergy Profile Region I Today Z91.09 - Other allergy status, other than to drugs and biological substances Medications: New amoxicillin-pot clavulanate 875-125 mg 1 tab PO Q12H 20 tabs 0RF Coding Level of Care Code Est Pt Level 4 (41767) Diagnoses Chronic obstructive pulmonary disease, unspecified COPD type J44.9 COPD type: unspecified COPD Nicotine dependence, cigarettes, uncomplicated F17.210 Shortness of breath R06.02
== END 2024-06-04 14:49 | disposition home or self-care (01) ==
PROVIDERS: PCP Internal Medicine; Visit Provider Nurse Practitioner Family
DX: J44.9 Chronic obstructive pulmonary disease, unspecified (principal); F17.210 Nicotine dependence, cigarettes, uncomplicated; R06.02 Shortness of breath
CPT/HCPCS: 99214

== ENCOUNTER → 2024-06-04 13:54 | Outpatient (BNVA) | payer MEDICARE, MEDICAID, SELFPAY | PROVIDERS: PCP Internal Medicine; Visit Provider Nurse Practitioner Family | DX: J44.9 Chronic obstructive pulmonary disease, unspecified (principal); R06.02 Shortness of breath; F17.210 Nicotine dependence, cigarettes, uncomplicated; R21 Rash and other nonspecific skin eruption; E11.42 Type 2 diabetes mellitus with diabetic polyneuropathy | CPT/HCPCS: 99212 ==

== ENCOUNTER 2024-06-07 09:04 | Outpatient (AMB) | payer OTHER, MEDICAID, SELFPAY ==
[2024-06-07 09:05] VITALS: BP 120/74; PULSE 72; BMI 32.0
--- NOTE | 2024-06-07 09:05 | MHC.OFFVIS ---
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 Required: No Hydro Sprayer Operator: Hydro Sprayer Operator Present Accompanied by: Family/Other Allergies lemon Allergy (Verified 06/04/24 14:52) Anaphylaxis morphine Allergy (Verified 06/04/24 14:52) Anaphylaxis vancomycin Allergy (Verified 06/04/24 14:52) Chest Pain Medication List - Last Reconciled 06/07/24 by Yash Lang MD albuterol sulfate 90 mcg/actuation 2 puffs inhalation Q6H PRN amoxicillin-pot clavulanate 875-125 mg 1 tab PO Q12H atorvastatin 40 mg PO DAILY blood sugar diagnostic (FreeStyle Lite Strips) once daily celecoxib 100 mg PO BEDTIME clopidogrel 75 mg PO DAILY cyclobenzaprine 10 mg PO TID PRN dexlansoprazole 60 mg PO DAILY [Diabetic shoes As directed] doxycycline hyclate 100 mg PO BID famotidine 20 mg PO DAILY ybdgmpchave-dslgvcgiq-zjfswwdg 200-62.5-25 mcg (Trelegy Ellipta) 1 ea inhalation DAILY FreeStyle Lancets (lancets) once daily NS FreeStyle Lite Meter (blood-glucose meter) As directed NS furosemide 40 mg PO DAILY hydroxyzine HCl 25 mg PO TID PRN ipratropium-albuterol 0.5 mg-3 mg(2.5 mg base)/3 mL 3 mL inhalation Q6H PRN lisinopril 10 mg PO DAILY magnesium 250 mg PO DAILY naloxone 4 mg/actuation (Narcan) 4 mg intranasal Q2M nebulizer accessories As directed oxycodone 5 mg PO .every 4 hour PRN oxycodone myristate CR-ER (Xtampza ER) 18 mg PO BID Oxygen Home Use 2 L during daytime and 4 L at the time of sleep pantoprazole 40 mg PO DAILY@0630 prednisone 20 mg PO DAILY prednisone Take pregabalin 100 mg PO TID rivaroxaban (Xarelto) 10 mg PO DAILY tamsulosin 0.8 mg (2 x 0.4 mg) PO DAILY triamcinolone acetonide 0.5% 1 appl topical BID triamcinolone acetonide 0.1% 1 appl topical DAILY HPI Comments Details: Russell was referred here for exertional shortness of breath and was told that he had cardiac issues. Patient does carry a past history of congestive heart failure says he was diagnose in 1999 and was put on diuretic therapy since then has currently been on Lasix 40 mg. He has been getting more leg swelling recently. Said he also has minimal functionality and gets short of breath with minimal exertion. Although he is very inactive and sedentary and does not do any exercise due to multitude of different issues. He had a fall in [place]. His medical history is scattered as he has had care in [place] where he was living and then had moved to [place] and then currently now moved to [facility] where he was living and his niece and grand nephew are involved in his care. They were both present during the office visit. Patient is currently on furosemide 40 mg daily and was advised to increase furosemide 80 mg daily because of leg edema. He denies any clear orthopnea, PND. He said he used to have oxygen while in [place] but this since he has been in [place] has been discontinued. He was tested by Pulmonary and was told that he does not have hypoxemia with walking and is currently not on chronic oxygen therapy. He is also supposed to be on CPAP therapy, currently still waiting for the same. An echocardiogram which showed normal LV ejection fraction of 60 65% with moderate asymmetric septal hypertrophy with impaired relaxation filling pattern without elevated filling pressures with vqpy-aj-alqbylpm aortic stenosis and mildly dilated ascending aorta. Also has geps-bw-vbcjjkuz infrarenal abdominal aortic aneurysm at 4 cm being followed by vascular surgery. He was history of peripheral vascular disease had stents put in many years ago in [place] due to vascular insufficiency, being followed by vascular surgery again and has mild disease based on his IZABELA. He is currently on chronic anticoagulation with Xarelto because of blood clots and currently on 10 mg daily maintenance dose for usually venous thromboembolic disease. He is also on clopidogrel therapy. He has not had a myocardial infarction although in mid he said he had kind of a panic attack and they were going to do an angiogram but did not. He has not had any chest pain. No lightheadedness, syncope. No prolonged palpitation irregular heartbeat. [facility] Social History Household Members: Other Household Members Other:: kenneth Housing: House Do you presently have visiting nurse or other home services: No Patient Tobacco Use Status: Current everyday Tobacco user Tobacco use type: Cigarette Cigarettes Per Day: 1 Years Smoked: 50 plus e-Cigarette/Vaping Use: Former Use Second Hand Smoke Exposure: No service: Yes Current occupational status: retired Cognitive needs: No Hearing needs: Yes Vision needs: Yes Review of Systems Const Denies chills, Denies daytime sleepiness, Denies fatigue, Denies fever(s), Denies frequent falls, Denies poor appetite, Denies snoring, Denies stops breathing during sleep, Denies weakness, Denies weight gain and Denies weight loss Eyes Denies loss of vision ENT Denies dizziness and Denies hearing loss Card Denies chest pain, Denies claudication, Denies leg edema, Denies lightheadedness, Denies palpitations, Denies dyspnea, Denies dyspnea on exertion and Denies orthopnea Resp Denies cough, Denies excessive phlegm production, Denies dyspnea, Denies dyspnea on exertion, Denies snoring and Denies wheezing GI Denies abdominal pain, Denies hematochezia, Denies change in bowel habits, Denies nausea and Denies vomiting Denies dysuria and Denies urinary frequency Musc Denies arthralgias, Denies muscle weakness, Denies numbness and Denies other (frequent falls) Skin/Breast Denies nail changes and Denies rash Neuro Denies Abnormal speech present, Denies dizziness, Denies frequent falls, Denies loss of vision, Denies memory loss, Denies numbness and Denies weakness Psych Denies depression and Denies memory loss Endo Denies fatigue and Denies palpitations Ken/Lymph Reports easy bruising and Reports other (anemia) Aller/Immun Denies wheezing Physical Exam Vital Signs: Last Vital Signs Pulse 72 06/07/24 09:05 BP 120/74 06/07/24 09:05 BMI result Body Mass Index 32.0 Const General: cooperative, comfortable, alert, awake, poor hygiene and tired appearing Nutritional Appearance: obese and other (Frail with poor functionality getting off the chair) Orientation/consciousness: patient oriented x3 Limitations: wheelchair HEENT Head: Yes normocephalic and Yes atraumatic Neck Neck: Yes trachea midline, Yes supple and No no JVD Resp Effort & Inspection: normal respiratory effort Auscultation: clear to auscultation bilaterally, no rales, no wheezes and diminished lung sounds Cardio Jugular venous distension: no JVD Rate: regular rate Rhythm: regular rhythm Heart sounds: S1 normal heart sound present, S2 normal heart sound present, no click, no gallops and Murmur heart sound present systolic early, decrescendo and crescendo GI Auscultation: normal bowel sounds Neuro General: patient oriented x3 and no focal motor deficits Speech: No Abnormal speech present Extrem General: No clubbing, No cyanosis and Yes edema Assessment & Plan Assessment & Plan (1) Dyspnea: Code(s): R06.00 - Dyspnea, unspecified Category: Medical Qualifiers: Dyspnea type: unspecified Qualified Code(s): R06.00 - Dyspnea, unspecified Plan: Patient with exertional shortness minimal activity but this is longstanding and gradually progressive. He was very poor functional status. His shortness of breath probably multifactorial given his deconditioning and weight as well as underlying COPD. Does not have any overt signs of fluid overload congestive heart failure although he was bilateral leg edema he does not have any evidence of venous congestion. I would suggest a BNP level to further guide treatment and I would not increase his furosemide. He is likely that shortness of breath could be related to coronary disease although he had a myocardial perfusion imaging within last year in [place]. Will obtain the results from [place] and if he was not able to will pursue a vasodilating myocardial perfusion imaging of her own. Unfortunately has very poor overall functional status and I think that is contributing most to his shortness of breath. At rest and with exercise as noted by Pulmonary there was no evidence of hypoxemia and may not qualify for oxygen therapy. Continue risk factor modification. (2) Aortic stenosis: Code(s): I35.0 - Nonrheumatic aortic (valve) stenosis Category: Medical Plan: Aortic stenosis which is svjx-gw-xikdnfsa by echocardiogram done in February. Not a reason for intervention although requires aggressive vascular risk factor modification. He also has diffuse vascular disease in the peripheral vascular system as well as infra renal aortic aneurysm. Continue aggressive vascular risk factor modification. Currently on high-intensity statin therapy. Target goal LDL less than 70 mg/dL. Continue aggressive diabetes management goal hemoglobin A1c less than 7% being pursue through your office. Blood pressure is currently well optimized. Follow-up echocardiogram in 1 year's time (3) CHF (congestive heart failure): Code(s): I50.9 - Heart failure, unspecified Category: Medical Qualifiers: Heart failure chronicity: chronic Heart failure type: combined systolic and diastolic Qualified Code(s): I50.42 - Chronic combined systolic (congestive) and diastolic (congestive) heart failure Plan: Reported history of congestive heart failure, clinically does not appear to have any evidence of central venous congestion. Will obtain a BNP level as above. Continue current furosemide therapy. Can consider adding SGLT2 1 inhibitor therapy and would consider adding Jardiance or Farxiga to his regimen for both management of heart failure as well as diabetes management. Daily weight monitoring avoidance salt loading was discussed. Increase activity level should help overall functionality. Continue aggressive blood pressure control which is optimized. CPAP should be prescribed as well. Will follow up in the clinic in 1 year's time, sooner p.r.n.. Thank you for allowing me to partake in his care (4) Bifascicular block: Code(s): I45.2 - Bifascicular block Category: Medical Plan: Bifascicular block on EKG most likely due to calcific aortic valvular disease. No symptoms related to it. No interventions required. Follow up with EKG in 1 year's time Orders: Orders B Type Natriuretic Peptide Today Yash Lang MD R06.02 - Shortness of breath Medications: Changed From furosemide 40 mg PO DAILY 90 tabs 3RF To furosemide extra prn 40 mg PO DAILY Kiana Carrillo MD Coding Level of Care Code New Pt Level 4 (35399) Complex EM visit Add On G2211 Diagnoses Dyspnea, unspecified type R06.00 Dyspnea type: unspecified Aortic stenosis I35.0 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 Heart failure chronicity: chronic Heart failure type: combined systolic and diastolic Bifascicular block I45.2
== END 2024-06-07 10:19 | disposition home or self-care (01) ==
PROVIDERS: PCP Internal Medicine; Visit Provider Internal Medicine Cardiovascular Disease
DX: I50.42 Chronic combined systolic (congestive) and diastolic (congestive) heart failure (principal); R06.00 Dyspnea, unspecified; I35.0 Nonrheumatic aortic (valve) stenosis; I45.2 Bifascicular block
CPT/HCPCS: 99214

== ENCOUNTER 2024-06-07 09:04 | Outpatient (REF) | payer MEDICARE, MEDICAID, SELFPAY ==
--- NOTE | ~2024-06-07 | XR_ITS ---
EXAMINATION: XR CHEST 2 VIEWS HISTORY: R05.9 - Cough, unspecified COMPARISON: Comparison is made with the prior examination dated 04/22/2024. FINDINGS: PA and lateral views of the chest are submitted. The lungs are expanded and clear. There is no pleural effusion, pneumothorax, or pulmonary vascular congestion. The heart is normal in size. There is degenerative disc disease of the spine. XR/XR chest 2V IMPRESSION: No acute cardiopulmonary abnormality. Electronically signed by: Russell Man MD 06/07/2024 10:40 AM EDT
[2024-06-07 11:21] LABS: B Type Natriuretic Peptide < 10 pg/mL (<100)
[2024-06-11 13:53] LABS: Class Alternaria alternata 0; Class Aspergillus fumigatus 0; Class Bermuda Grass 0; Class Birch 0; Class Cat Dander 0; Class Cladosporium herbarum 0; Class Cockroach 0/1; Class Common Ragweed 0; Class Cottonwood 0; Class Derm. pterony 0; Class Dermatophagoides farinae 0; Class Dog Dander 0/1; Class Elm 0; Class Maple Box Elder 0; Class Mountain Cedar 0; Class Mouse Urine Protein 0; Class Mugwort 0; Class Oak 0; Class Penicillium crysogenum 0; Class Rough Pigweed 0; Class Sheep Sorrel 0; Class Sycamore 0; Class Timothy Grass 1; Class Walnut Tree 0/1; Class White Ash 0; Class White Mulberry 0; D001 IgE D pteronyssinus <0.10 kU/L; D002 - IgE D farinae <0.10 kU/L; E001 - IgE Cat Dander <0.10 kU/L; E005 - IgE Dog Dander 0.12 kU/L; E072-IgE Mouse Urine <0.10 kU/L; G002 IgE Bermuda Grass <0.10 kU/L; I006-IgE Cockroach, German 0.17 kU/L; Immunoglobulin E 2601 kU/L (<OR=114); M001 IgE Penicillium chrysogen <0.10 kU/L; M002 - IgE Cladosporium herbar <0.10 kU/L; M003 - IgE Aspergillus fumigat <0.10 kU/L; M006 - IgE Alternaria alternat <0.10 kU/L; T001 IgE Maple/Box Elder <0.10 kU/L; T003 IgE Common Silver Birch <0.10 kU/L; T006 - IgE Cedar, Mountain <0.10 kU/L; T007 - IgE Oak, White <0.10 kU/L; T008 IgE Elm, American <0.10 kU/L; T010 - IgE Walnut 0.11 kU/L; T011 - IgE Maple Leaf Sycamore <0.10 kU/L; T014 - IgE Cottonwood <0.10 kU/L; T015 - IgE Ash, White <0.10 kU/L; T070 - IgE White Mulberry <0.10 kU/L; W001 - IgE Ragweed, Short <0.10 kU/L; W006 - IgE Mugwort <0.10 kU/L; W014 IgE Pigweed, Common <0.10 kU/L; W018 IgE Sheep Sorrel <0.10 kU/L
== END 2024-06-07 09:05 | disposition home or self-care (01) ==
LOC: HO.XRAY 09:04
PROVIDERS: Absent Provider Nurse Practitioner Family; PCP Internal Medicine; Visit Provider Internal Medicine Cardiovascular Disease
DX: R06.02 Shortness of breath (principal); Z91.09 Other allergy status, other than to drugs and biological substances; R05.9 Cough, unspecified
CPT/HCPCS: 36415; 71046; 82785; 83880; 86003

== ENCOUNTER → 2024-06-07 10:11 | Outpatient (BNV) | payer MEDICARE, MEDICAID, SELFPAY | PROVIDERS: Absent Provider Nurse Practitioner Family; PCP Internal Medicine; Visit Provider Radiology Diagnostic Radiology | DX: R05.9 Cough, unspecified (principal) | CPT/HCPCS: 71046 ==

== ENCOUNTER 2024-06-27 15:06 | Inpatient (IN) | payer MEDICARE, MEDICAID, SELFPAY ==
--- NOTE | ~2024-06-27 | XR_ITS ---
CLINICAL HISTORY: eval for fluid overload Two views of the chest. COMPARISON: XR chest dated 06/07/24 at 10:29 EDT FINDINGS: Low lung volumes. Borderline cardiomegaly, stable. No consolidation. Crowding of the bronchovascular markings, likely secondary to low lung volumes. No definite pleural effusion. No pneumothorax. Leftward curvature of the lower thoracic spine. No acute fracture identified. IMPRESSION: 1. Low lung volumes. No consolidation. This document has been electronically signed by: Harsha Cheng MD on 06/27/2024 17:19:06
--- NOTE | ~2024-06-27 | XR_ITS ---
CLINICAL HISTORY: wound 2nd toe eval for osteo Three views of the right foot. COMPARISON: XR right foot dated 02/27/24 at 15:00 EST FINDINGS: Soft tissue swelling overlying the forefoot. No ankle joint effusion. Small calcaneal enthesophyte present. Small osteophytes present along the dorsal aspect of the tarsal bones. Normal tarsometatarsal alignment. 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 Remaining metatarsals appear intact and normal in alignment. Phalanges appear intact. Hammertoe deformity of the 2nd digit. Lucency along the head of the 2nd middle phalanx seen only on lateral imaging, new since prior imaging. IMPRESSION: 1. Soft tissue swelling overlying the forefoot. Lucency along the head of the 2nd middle phalanx raises suspicion for developing osteomyelitis. This is new since prior imaging. This document has been electronically signed by: Harsha Cheng MD on 06/27/2024 17:26:04
--- NOTE | ~2024-06-27 | US_ITS ---
EXAMINATION: US NONINVASIVE ASSESSMENT OF THE RIGHT LOWER EXTREMITY WITHOUT ARTERIAL DUPLEX AND ANKLE BRACHIAL INDICES (ABIS) CLINICAL INFORMATION: Right great toe amputation. COMPARISON: None available. TECHNIQUE: Duplex Doppler techniques with waveform analysis and measurement of velocities in the common femoral, profunda femoris, superficial femoral, popliteal and tibial arteries were performed. The study was performed only at rest. FINDINGS: RIGHT LOWER EXTREMITY DUPLEX ULTRASOUND: Common femoral artery: 198 cm/s. Monophasic. Spectral broadening. Profunda femoris artery: 71 cm/s. Biphasic. Spectral broadening. Superficial femoral artery (proximal): 237 cm/s. Triphasic. Spectral broadening. Superficial femoral artery (mid): 89 cm/s. Triphasic. Spectral broadening. Superficial femoral artery (distal): 48 cm/s. Biphasic. Spectral broadening. Popliteal artery: 47 cm/s Monophasic. Spectral broadening. Posterior tibial artery: 68 cm/s Monophasic. Spectral broadening. Anterior tibialis artery: 55 cm/s. Monophasic. Spectral broadening. Dorsalis pedis artery: 53 cm/s. Monophasic waveform. Spectral broadening. 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 Electronically signed by: Alek Harris MD 06/28/2024 10:49 AM EDT
--- NOTE | ~2024-06-27 | US_ITS ---
CLINICAL HISTORY: swelling, h o dvt Venous duplex ultrasound bilateral lower extremity COMPARISON: US right lower extremity veins dated 03/28/24 at 11:52 EST FINDINGS: The visualized deep veins are fully compressible with normal Doppler color flow and spectral tracings. No popliteal cyst. IMPRESSION: 1. Negative for bilateral lower extremity deep vein thrombosis. This document has been electronically signed by: Harsha Cheng MD on 06/27/2024 17:12:37
--- NOTE | ~2024-06-27 | MR_ITS ---
CLINICAL HISTORY: <OBR.31.1><OBR.31.1.1>Evaluate osteomyelitis Incomplete exam. Pt refused to contin ue exam due to pain in leg </OBR.31.1.1><OBR.31.1.2> back. NO contrast administered.</OBR.31.1.2></OB R.31.1> MR right foot without gadolinium Comparison: CR - XR FOOT RT 2V - 06/27/24 16:49 EDT Findings: Edema in the dorsum of the foot. Amputation of the 1st ray. No fracture. Minimal degenerative changes. No bone marrow edema to suggest osteomyelitis. In the absence of contrast, occult osteomyelitis can not be excluded. IMPRESSION: No bone marrow edema to suggest osteomyelitis. In the absence of contrast, occult osteomyelitis can not be excluded. This document has been electronically signed by: Artem Livingston MD on 06/27/2024 23:58:40
[2024-06-27 15:24] VITALS: BP 112/54; PULSE 89; RESP 14; TEMP 36.9; O2SAT 96; BMI 31.8
[2024-06-27 15:44] LABS: Basophils Percent Auto 0.4 % (0-2); Eosinophils Absolute Auto 0.1 X10*3/uL (0.0-0.4); Eosinophils Percent Auto 0.9 % (0-4); Hematocrit 39.1 % (42.0-52.0); Hemoglobin 13.1 g/dl (14.0-18.0); Imm Gran Abs Auto 0.04 X10*3/uL (0.00-0.03); Imm Gran Pct Auto 0.4 % (0.0-0.4); Lymphocytes Percent Auto 9.2 % (20-40); MANUAL DIFF FLAG NO; Mean Corpuscular HGB Conc 33.5 g/dl (31.0-36.0); Mean Corpuscular Hemoglobin 29.4 pg (27.0-33.0); Mean Corpuscular Volume 87.7 fL (80.0-98.0); Mean Platelet Volume 10.3 fL (9.4-12.4); Monocytes Absolute Auto 0.9 X10*3/uL (0.1-1.2); Monocytes Percent Auto 7.7 % (2-11); Neutrophils Percent Auto 81.4 % (45-73); Platelet Count 173 X10*3/uL (160-400); Red Blood Count 4.46 X10*6/uL (4.60-5.80); Red Cell Distribution Width 14.2 % (11.0-16.0); White Blood Count 11.1 X10*3/uL (4.8-10.8)
--- NOTE | 2024-06-27 15:48 | ECG_ITS ---
Test Reason : WEAKNESS Blood Pressure : */* mmHG Vent. Rate : 85 BPM Atrial Rate : * BPM P-R Int : * ms QRS Dur : 170 ms QT Int : 414 ms P-R-T Axes : * -59 14 degrees QTcB Int : 492 ms Normal sinus rhythm Right bundle branch block Left anterior fascicular block Bifascicular block Abnormal ECG When compared with ECG of 30-Mar-2024 04:56, No significant changes seen Referred By: Denia Haro Electronically Signed By: DMITRY HUDDLESTON
--- NOTE | 2024-06-27 15:57 | ED_ITS ---
Estimated GFR > 60 Random Glucose 138 H (60-115) mg/dL Lactic Acid 1.4 (0.5-2.0) mmol/L Calcium 8.5 D (8.4-10.2) mg/dL Total Bilirubin 1.4 H (0.0-1.0) mg/dL AST 59 H (5-37) U/L ALT 21 (0-40) U/L Alkaline Phosphatase 86 (39-117) U/L B-Natriuretic Peptide 37 (<100) pg/mL Total Protein 6.5 (6.5-8.0) g/dL Albumin 3.4 L (3.5-5.0) g/dL Independent Interpretation I performed an independent interpretation of an: EKG, Plain X-Ray and Ultrasound Interpretation: I independently reviewed the EKG which shows right bundle branch block with a rate of 85 I independently reviewed the x-ray and the ultrasound agree with the radiology report Radiology Impression Discussion of test interpretation with radiology: I have reviewed the radiologist's reading. Radiologist Impression: [address] [address] Ultrasound Report Signed Patient: Russell Saeed MR#: [id number] : 1945 Acct:[id number] Age/Sex: 79 / M ADM Date: 06/27/24 Loc: .ED Attending Dr: Ordering Physician: Denia Haro NP Date of Service: 06/27/24 Procedure(s): US venous duplex LE BI Accession Number(s): [id number] cc: Kiana Carrillo MD; Denia Haro NP~ CLINICAL HISTORY: swelling, h o dvt Venous duplex ultrasound bilateral lower extremity COMPARISON: US right lower extremity veins dated 03/28/24 at 11:52 EST FINDINGS: The visualized deep veins are fully compressible with normal Doppler color flow and spectral tracings. No popliteal cyst. IMPRESSION: 1. Negative for bilateral lower extremity deep vein thrombosis. [address] [address] XRay Report Signed Patient: Russell Saeed MR#: [id number] : 1945 Acct:[id number] Age/Sex: 79 / M ADM Date: 06/27/24 Loc: .ED Attending Dr: Ordering Physician: Denia Haro NP Date of Service: 06/27/24 Procedure(s): XR foot RT 2V Accession Number(s): [id number] cc: Kiana Carrillo MD; Denia Haro NP~ CLINICAL HISTORY: wound 2nd toe eval for osteo Three views of the right foot. COMPARISON: XR right foot dated 02/27/24 at 15:00 EST FINDINGS: Soft tissue swelling overlying the forefoot. No ankle joint effusion. Small calcaneal enthesophyte present. Small osteophytes present along the dorsal aspect of the tarsal bones. Normal tarsometatarsal alignment. 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 Remaining metatarsals appear intact and normal in alignment. Phalanges appear intact. Hammertoe deformity of the 2nd digit. Lucency along the head of the 2nd middle phalanx seen only on lateral imaging, new since prior imaging. IMPRESSION: 1. Soft tissue swelling overlying the forefoot. Lucency along the head of the 2nd middle phalanx raises suspicion for developing osteomyelitis. This is new since prior imaging. This document has been electronically signed by: Harsha Cheng MD on 06/27/2024 17:26:04 [place] [address] XRay Report Signed Patient: Russell Saeed MR#: [id number] : 1945 Acct:[id number] Age/Sex: 79 / M ADM Date: 06/27/24 Loc: .ED Attending Dr: Ordering Physician: Denia Haro NP Date of Service: 06/27/24 Procedure(s): XR chest 2V Accession Number(s): [id number] cc: Kiana Carrillo MD; Denia Haro NP~ CLINICAL HISTORY: eval for fluid overload Two views of the chest. COMPARISON: XR chest dated 06/07/24 at 10:29 EDT FINDINGS: Low lung volumes. Borderline cardiomegaly, stable. No consolidation. Crowding of the bronchovascular markings, likely secondary to low lung volumes. No definite pleural effusion. No pneumothorax. Leftward curvature of the lower thoracic spine. No acute fracture identified. IMPRESSION: 1. Low lung volumes. No consolidation. This document has been electronically signed by: Harsha Cheng MD on 06/27/2024 17:19:06 Independent Historian Clinical information obtained from an independent historian. History obtained from or confirmed by: EMS External Record Review External record reviewed: Inpatient record Critical Care Time Critical Care Time Critical Care Time: Yes Total Critical Care Time: 45 Attestation: osteomyelitis requiring IV antibiotics and admission. Patient was reassessed, I had to speak to the hospitalist who accepted admission. Discharge Plan Discharge Clinical Impression: Osteomyelitis Patient Disposition: Admitted As Inpatient Print Language: Khmer HPI - Wound/Laceration General Chief Complaint: Wound/Laceration Stated Complaint: swollen feet Time Seen by Provider: 06/27/24 15:37 Source: patient and EMS Mode of arrival: EMS Limitations: no limitations History of Present Illness ED Provider: Denia Haro APRN HPI narrative: 79-year-old male with PMH significant for CHF, COPD, 2 L home supplemental O2, PAD s/p right great toe amputation, AAA, paroxysmal atrial fibrillation on Xarelto, HTN, peripheral neuropathy, BPH presents to the ER with complaints of bilateral lower extremity swelling noted this morning with a 5 lb weight gain since yesterday. Patient also having some orthopnea and dyspnea with exertion. Also noted that the right foot is swollen, painful and has redness with a wound to the right 2nd toe. Unclear length of these symptoms. Patient denies fevers or chills vomiting or diarrhea or chest pain. He does live home. Related Data Home Medications ?Medication ?Instructions ?Recorded ?Confirmed celecoxib 100 mg capsule 100 mg PO BEDTIME 01/09/24 06/07/24 magnesium 250 mg tablet 250 mg PO DAILY 01/09/24 06/07/24 furosemide 40 mg tablet 40 mg PO DAILY 06/07/24 06/07/24 Previous Rx's ?Medication ?Instructions ?Recorded Oxygen Home Use #1 ea 12/31/23 albuterol sulfate 90 mcg/actuation 2 puff inhalation Q6H PRN 12/31/23 aerosol inhaler shortness of breath or wheezing #8.5 grams nebulizer accessories #1 ea 12/31/23 prednisone 20 mg tablet 20 mg PO DAILY #3 tabs 04/02/24 atorvastatin 40 mg tablet 40 mg PO DAILY #90 tabs 01/21/25 clopidogrel 75 mg tablet 75 mg PO DAILY #90 tabs 04/20/24 famotidine 20 mg tablet 20 mg PO DAILY #90 tabs 04/20/24 fluticasone fur. 200 mcg-umeclid 1 ea inhalation DAILY #90 ea 04/20/24 62.5 mcg-vilant 25 mcg inhalat.powder (Trelegy Ellipta) pantoprazole 40 mg tablet,delayed 40 mg PO DAILY@0630 #90 tabs 04/20/24 release pregabalin 100 mg capsule 100 mg PO TID #270 caps 04/20/24 rivaroxaban 10 mg tablet (Xarelto) 10 mg PO DAILY #90 tabs 04/20/24 tamsulosin 0.4 mg capsule 0.8 mg (2 x 0.4 mg) PO DAILY #180 04/20/24 caps triamcinolone acetonide 0.5 % 1 appl topical BID #15 grams 04/20/24 topical cream doxycycline hyclate 100 mg capsule 100 mg PO BID #14 caps 04/21/24 FreeStyle Lancets 28 gauge #100 ea 04/26/24 (lancets) FreeStyle Lite Meter #1 ea 04/26/24 (blood-glucose meter) blood sugar diagnostic (FreeStyle #100 ea 04/26/24 Lite Strips) cyclobenzaprine 10 mg tablet 10 mg PO TID PRN muscle spasm #270 04/26/24 tabs dexlansoprazole 60 mg 60 mg PO DAILY #90 caps 04/26/24 capsule,biphase delayed release lisinopril 10 mg tablet 10 mg PO DAILY #90 tabs 04/26/24 ipratropium 0.5 mg-albuterol 3 mg 3 ml inhalation Q6H PRN wheezing 04/27/24 (2.5 mg base)/3 mL nebulization #180 mL soln naloxone 4 mg/actuation nasal 4 mg intranasal Q2M #2 ea 06/01/24 spray (Narcan) oxycodone 5 mg tablet 5 mg PO .every 4 hour PRN pain 06/01/24 #168 tabs oxycodone myristate 18 mg capsule 18 mg PO BID #56 caps 06/01/24 sprinkle extended release 12hr(DON'T CRUSH) (Xtampza ER) Diabetic shoes #1 ea 06/04/24 amoxicillin 875 mg-potassium 1 tab PO Q12H #20 tabs 06/04/24 clavulanate 125 mg tablet hydroxyzine HCl 25 mg tablet 25 mg PO TID PRN itching #90 tabs 06/04/24 prednisone 10 mg tablet See Rx Instructions .Route 06/04/24 .COMPLEX #45 tabs triamcinolone acetonide 0.1 % 1 appl topical DAILY #30 grams 06/04/24 topical cream Allergies Allergy/AdvReac Type Severity Reaction Status Date / Time lemon Allergy Anaphylaxis Verified 06/27/24 15:25 morphine Allergy Anaphylaxis Verified 06/27/24 15:25 vancomycin Allergy Chest Pain Verified 06/27/24 15:25 Review of Systems 2 Review of Systems: Yes all other systems are reviewed and are negative Constitutional: Constitutional: Reports no additional constitutional complaints, Denies body ache(s), Denies chills, Denies fever(s), Denies headache(s) and Denies weakness Eyes: Eyes: Reports no additional eye complaints and Denies change in vision ENT: Reports system reviewed and no additional complaints, except as documented, Denies dizziness, Denies headache(s), Denies nasal congestion, Denies nasal discharge and Denies neck pain Cardiovascular: Cardiovascular: Reports no additional cardiovascular complaints, Denies chest pain, Reports leg edema, Reports dyspnea, Reports dyspnea on exertion and Reports orthopnea Respiratory: Respiratory: Reports no additional respiratory complaints, Denies cough, Reports dyspnea and Reports dyspnea on exertion Gastrointestinal: Gastrointestinal: Reports no additional gastrointestinal complaints, Denies abdominal pain, Denies diarrhea, Denies nausea and Denies vomiting Genitourinary: Genitourinary: Denies urinary incontinence Musculoskeletal: Musculoskeletal: Reports no additional musculoskeletal complaints, Denies back pain, Denies arthralgias, Denies joint swelling, Denies neck pain, Denies numbness and Denies tingling Integumentary/Breasts: Skin/Breast: Reports system reviewed and no additional complaints, except as docu, Reports swelling, Reports erythema, Denies rash and Reports wounds Neurologic: Reports system reviewed and no additional complaints, except as documented, Denies Abnormal speech present, Denies dizziness, Denies headache(s), Denies numbness, Denies tingling and Denies weakness [facility] Past Medical History Attestation statement: The following information was validated with the patient. Source: old records reviewed and nursing notes reviewed Social History Social History Household Members: Other Household Members Other:: neice Housing: House Do you presently have visiting nurse or other home services: No Patient Tobacco Use Status: Current everyday Tobacco user Tobacco use type: Cigarette Cigarettes Per Day: 1 Years Smoked: 50 plus e-Cigarette/Vaping Use: Former Use Second Hand Smoke Exposure: No Advance Directives: No Advance Directives Information Provided: No service: Yes Current occupational status: retired Cognitive needs: No Hearing needs: Yes Vision needs: Yes Physical Exam 2 Vital Signs: Vital Signs: Last Vital Signs Temp 97.8 F 06/27/24 17:32 Pulse 81 06/27/24 17:32 Resp 18 06/27/24 17:32 BP 94/56 L 06/27/24 17:32 Pulse Ox 99 06/27/24 17:32 O2 Del Method Room Air 06/27/24 17:32 O2 Flow Rate 2 06/27/24 16:00 Oxygen Flow Rate 2 06/27/24 15:24 BMI result Body Mass Index 31.8 Const: General: cooperative, healthy appearing, comfortable and no acute distress Orientation/consciousness: patient oriented x3 Limitations: no limitations HEENT: Head: Yes normal to inspection Ears: hearing grossly normal bilaterally General nose exam: Normal external nose present Face and sinus: Yes normal facial exam Mouth: Normal oral and palatal mucosa present Throat: Yes posterior oropharynx normal Eyes: General: appearance normal, both eyes and all related structures P upils: Equal, round and reactive pupils present Neck: Neck: Yes normal visual inspection Chest: Chest palpation & inspection: normal inspection of the chest Resp: Effort & Inspection: normal respiratory effort Auscultation: clear to auscultation bilaterally Cardio: Rate: regular rate Rhythm: regular rhythm Peripheral pulses: P eripheral pulses 2+ throughout GI: Inspection: Yes normal to inspection Palpation (GI): Soft to palpation and nontender Auscultation: normal bowel sounds Back/Spine/Pelvis: Thoracic/Lumbar Spine: thoracic and lumbar spine normal to inspection Skin: General skin exam: no rashes or lesions noted Neuro: General: patient oriented x3, no focal motor deficits and normal sensation to monofilament Cranial nerves: Yes Equal, round and reactive pupils present Cognition (Neuro): normal cognition Speech: No Abnormal speech present Gait exam (Neuro): Normal gait present Motor exam (neuro): 5/5 motor strength present throughout Extrem: Other: there is 2+ pedal edema in the lower extremities which is pitting There are palpable DP and PT pulses. There is warmth on exam right greater than left. Skin is warm. Course Course Course Narrative: 1739- x-ray is concerning for osteomyelitis the 2nd toe. This time infection is suspected. Antibiotics ordered Medications Administered Discontinued Medications Generic Name Dose Route Start Last Admin Trade Name Corie PRN Reason Stop Dose Admin Piperacillin Sod/Tazobactam 50 mls @ 100 mls/hr 06/27/24 17:34 06/27/24 18:05 Sod 3.375 gm/ Sodium Chloride IV 06/27/24 18:03 100 mls/hr ONCE ONE Administration Medical Decision Making Medical Decision Making [facility] Narrative: 79-year-old male with PMH significant for CHF, COPD, 2 L home supplemental O2, PAD s/p right great toe amputation, AAA, paroxysmal atrial fibrillation on Xarelto, HTN, peripheral neuropathy, BPH presents to the ER with complaints of bilateral lower extremity swelling noted this morning with a 5 lb weight gain since yesterday. Patient also having some orthopnea and dyspnea with exertion. Also noted that the right foot is swollen, painful and has redness with a wound to the right 2nd toe. Unclear length of these symptoms. Patient denies fevers or chills vomiting or diarrhea or chest pain. He does live home. there is pitting edema to both lower extremities. Does appear to be some redness and swelling over both extremities right greater than left with a wound on the right 2nd toe. vitals are stable will obtain labs, EKG, chest x-ray, ultrasound Differential Diagnosis Differential Diagnoses: The differential diagnosis associated with the presentation includes DVT, congestive heart failure, low suspicion for ischemic injury, neck fascia, compartment syndrome Admission/Observation Consideration of admission/observation: Escalation of care including admission/observation considered x-ray concerning for osteomyelitis requiring IV antibiotics and admission Consult Healthcare Provider Management of the patient was discussed with: Hospitalist 1729-Luiz alfonso to hospitalist for admission 1819-Dr Hebert accepted admissiomm Lab Data [facility] Lab Attestation statement: I reviewed the patient's lab results. 06/27/24 15:39 06/27/24 15:39 Labs: Lab Results 03/30/25 03/30/25 Range/Units 15:39 16:10 WBC 11.1 H (4.8-10.8) X10*3/uL RBC 4.46 L (4.60-5.80) X10*6/uL Hgb 13.1 L (14.0-18.0) g/dl Hct 39.1 L (42.0-52.0) % MCV 87.7 (80.0-98.0) fL MCH 29.4 (27.0-33.0) pg MCHC 33.5 (31.0-36.0) g/dl RDW 14.2 (11.0-16.0) % Plt Count 173 (160-400) X10*3/uL MPV 10.3 (9.4-12.4) fL Immature Gran % (Auto) 0.4 (0.0-0.4) % Neut % (Auto) 81.4 H (45-73) % Lymph % (Auto) 9.2 L (20-40) % [place] % (Auto) 7.7 (2-11) % Eos % (Auto) 0.9 (0-4) % Baso % (Auto) 0.4 (0-2) % Lymph # (Auto) 1.0 L (1.2-4.9) X10*3/uL [place] # (Auto) 0.9 (0.1-1.2) X10*3/uL Eos # (Auto) 0.1 (0.0-0.4) X10*3/uL Baso # (Auto) 0.0 (0.0-0.2) X10*3/uL Abs Immat Gran (auto) 0.04 H (0.00-0.03) X10*3/uL Absolute Neuts (auto) 9.0 H (2.0-8.3) x10*3/uL Absolute Nucleated RBC 0.000 (0.0-0.012) X10*3/uL Nucleated RBC % (auto) 0.0 (0.0-0.2) /100WBC Sodium 137 (135-145) mmol/L Potassium 4.4 D (3.3-5.1) mmol/L Chloride 104 (96-108) mmol/L Carbon Dioxide 23 (22-29) mmol/L Anion Gap 14 (12-20) BUN 33 H (9-16) mg/dL Creatinine 1.10 (0.5-1.4) mg/dL Estim Creat Clear Calc 66.6
[2024-06-27 16:00] VITALS: BP 112/54; PULSE 93; RESP 19; TEMP 36.9; O2SAT 96
[2024-06-27 16:02] LABS: Alanine Aminotransferase 21 U/L (0-40); Albumin Level 3.4 g/dL (3.5-5.0); Alkaline Phosphatase 86 U/L (39-117); Anion Gap 14 (12-20); Aspartate Amino Transferase 59 U/L (5-37); Bilirubin Total 1.4 mg/dL (0.0-1.0); Blood Urea Nitrogen 33 mg/dL (9-16); Calcium 8.5 mg/dL (8.4-10.2); Carbon Dioxide 23 mmol/L (22-29); Chloride 104 mmol/L (96-108); Creatinine Clr Calc Pharmacy 66.6; Estimated Glomerular Filt Rate > 60; Glucose Random 138 mg/dL (60-115); Potassium 4.4 mmol/L (3.3-5.1); Sodium 137 mmol/L (135-145); Total Protein 6.5 g/dL (6.5-8.0)
[2024-06-27 16:16] LABS: B Type Natriuretic Peptide 37 pg/mL (<100)
[2024-06-27 16:28] LABS: Lactic Acid 1.4 mmol/L (0.5-2.0)
[2024-06-27 17:32] VITALS: BP 94/56; PULSE 81; RESP 18; TEMP 36.6; O2SAT 99
[2024-06-27] MEDS: Piperacillin Sodium/Tazobactam 3.375 GM in 0.9 % Sodium Chloride 50 ML IV (18:05)
[2024-06-27 18:28] VITALS: BP 103/58; PULSE 79; RESP 12; TEMP 36.3; O2SAT 98
--- NOTE | 2024-06-27 19:38 | PM.IMHP ---
History of Present Illness Date of Service: 06/27/24 Attending physician on admission: Dottie Hebert Chief Complaint: dyspnea, redness R foot 79-year-old male with history of paroxysmal atrial fibrillation anticoagulated with Eliquis, peripheral arterial disease, BPH, heart failure reduced ejection fraction, history of type 2 diabetes per patient, COPD with chronic hypoxemic respiratory failure, GERD, hyperlipidemia, chronic low back pain, with history of osteomyelitis right great toe s/p amputation presented to the ED earlier today for evaluation of worsening dyspnea, orthopnea, and swelling. His daughter is at bedside who states that she actually called EMS due to significant erythema of the right foot which was noted this afternoon. He has had ulcerations on the right 2nd and 3rd great toe that have not healed over last few months. There has been no purulent drainage. He has not have a director of environmental services at this time. He reports the pain in his foot makes it difficult to ambulate even with his walker. Regarding the respiratory symptoms, he reports these been ongoing for several weeks but worsening over the last few days. He has not needed to increase O2 requirement but has been using albuterol inhaler with increased frequency. He has a chronic cough but denies any change in quality or severity, no increased sputum production. No fevers or chills. Since arrival, vitals have been stable. Remains on 2 L supplemental O2. Blood pressure soft but no hypotension. He has mild leukocytosis of 11.1. Renal function baseline, electrolyte levels normal. Glucose 138. Total bilirubin 1.4, AST 59, ALT 21. BNP 37. Venous duplex of the right lower extremity negative for DVT. Chest x-ray negative for any focal consolidation, edema, effusions. X-ray of the right foot shows soft tissue swelling overlying the forefoot with lucency along the head of the 2nd middle phalanx raising suspicion for developing osteomyelitis. ESR and CRP pending. In the ED has received IV Zosyn. Review of Systems Review of Systems: Yes all other systems are reviewed and are negative [facility] Medical History COPD (chronic obstructive pulmonary disease) GERD (gastroesophageal reflux disease) Hyperlipidemia Hypertension BPH (benign prostatic hyperplasia) CHF (congestive heart failure) Infrarenal abdominal aortic aneurysm (AAA) without rupture Peripheral vascular disease DDD (degenerative disc disease), lumbosacral Nicotine dependence, cigarettes, uncomplicated Nocturnal hypoxemia PAD (peripheral artery disease) Paroxysmal atrial fibrillation Social History Household Members: Other Household Members Other:: neice Housing: House Do you presently have visiting nurse or other home services: No Patient Tobacco Use Status: Current everyday Tobacco user Tobacco use type: Cigarette Cigarettes Per Day: 1 Years Smoked: 50 plus e-Cigarette/Vaping Use: Former Use Second Hand Smoke Exposure: No Advance Directives: No Advance Directives Information Provided: No service: Yes Current occupational status: retired Cognitive needs: No Hearing needs: Yes Vision needs: Yes Meds Allergies Allergy/AdvReac Type Severity Reaction Status Date / Time lemon Allergy Anaphylaxis Verified 06/27/24 15:25 morphine Allergy Anaphylaxis Verified 06/27/24 15:25 vancomycin Allergy Chest Pain Verified 06/27/24 15:25 Active Medications: Current Medications Acetaminophen (Acetaminophen 325 Mg Tablet) 650 mg PO Q6H PRN PRN Reason: Pain, Mild 1-3,fever,headache Albuterol/Ipratropium (Albuterol/Iprat 2.5/0.5mg 3 Ml Ampul.Neb) 3 ml INHALE RQ4H WHILE AWAKE [facility] Calcium Carbonate (Calcium Carbonate 750 Mg Tab.Chew) 750 mg PO Q4H PRN PRN Reason: Heartburn Piperacillin Sod/Tazobactam (Sod 4.5 gm/ Sodium Chloride) 100 mls @ 200 mls/hr IV Q6H [facility] Magnesium Hydroxide (Milk Of Magnesia 30 Ml Oral.Susp) 30 ml PO DAILY PRN PRN Reason: Constipation Melatonin (Melatonin 3 Mg Tablet) 6 mg PO BEDTIME PRN PRN Reason: Insomnia Methylprednisolone Sodium Succinate (Methylprednisolone Sod Succ 40 Mg/Ml Vial) 40 mg IVPUSH Q12H [facility] Pharmacy Consult (Consult Rx Vancomycin Dosing) 1 each MISCELLANE DAILY PRN PRN Reason: Consult order Sodium Chloride (0.9 % Sodium Chloride Flush 3 Ml Syringe) 3 ml IVFLUSH QSHIFT [facility] Home Medications ?Medication ?Instructions ?Recorded ?Confirmed ?Last Taken ?Type celecoxib 100 mg capsule 100 mg PO BEDTIME 01/09/24 06/07/24 02/27/24 12:00 History magnesium 250 mg tablet 250 mg PO DAILY 01/09/24 06/07/24 02/27/24 12:00 History furosemide 40 mg tablet 40 mg PO DAILY 06/07/24 06/07/24 Unknown History Physical Exam Vital Signs and Narrative: Vital Signs: Last Vital Signs Temp 97.3 F 06/27/24 18:28 Pulse 79 06/27/24 18:28 Resp 12 06/27/24 18:28 BP 103/58 L 06/27/24 18:28 Pulse Ox 98 06/27/24 18:28 O2 Del Method Nasal Cannula 06/27/24 18:28 O2 Flow Rate 2 06/27/24 18:28 Oxygen Flow Rate 2 06/27/24 15:24 BMI result Body Mass Index 31.8 Constitutional - Awake and Alert, No apparent distress Eyes - PERRLA, EOMI Cardiovascular - S1S2, RRR, No edema Respiratory - Normal lung expansion, Normal respiratory effort, No respiratory distress, rhonchi lower lobes bilaterally with scattered expiratory wheezing Gastrointestinal - NT / ND; +BS; No rebound or guarding Extremities - no calf tenderness bilaterally, no swelling. s/p amp R great toe Skin - Warm/Dry. Scabbing and ulceration of the dorsum of the R 2nd toe, 1cm ulceration of the plantar surface R 3rd toe without any purulent drainage or erythema. There is significant erythema and warmth of the R foot and distal third of the R lower leg. Dusky purple discoloration bilateral lower legs with red speckling of the dorsum of the L great toe. Hypertrophy and onychomycosis of the toenails bilaterally Neurological - Alert & oriented x3 Psychological - Appropriate affect Results Labs 06/27/24 15:39 06/27/24 15:39 Labs: Laboratory Results - last 24 hr 06/27/24 06/27/24 15:39 16:10 MCV 87.7 MCH 29.4 MCHC 33.5 RDW 14.2 Plt Count 173 MPV 10.3 Immature Gran % (Auto) 0.4 Neut % (Auto) 81.4 H Lymph % (Auto) 9.2 L [place] % (Auto) 7.7 Eos % (Auto) 0.9 Baso % (Auto) 0.4 Lymph # (Auto) 1.0 L [place] # (Auto) 0.9 Eos # (Auto) 0.1 Baso # (Auto) 0.0 Abs Immat Gran (auto) 0.04 H Absolute Neuts (auto) 9.0 H Absolute Nucleated RBC 0.000 Nucleated RBC % (auto) 0.0 Anion Gap 14 Estim Creat Clear Calc 66.6 Estimated GFR > 60 Random Glucose 138 H Lactic Acid 1.4 Calcium 8.5 D Total Bilirubin 1.4 H AST 59 H ALT 21 Alkaline Phosphatase 86 B-Natriuretic Peptide 37 Total Protein 6.5 Albumin 3.4 L Assessment and Plan (1) Osteomyelitis: Status: Acute (2) COPD exacerbation: Status: Acute (3) Cellulitis of right foot: Status: Acute Plan 79-year-old male with history of paroxysmal atrial fibrillation anticoagulated with Eliquis, peripheral arterial disease, BPH, heart failure reduced ejection fraction, history of type 2 diabetes per patient, COPD with chronic hypoxemic respiratory failure, GERD, hyperlipidemia, chronic low back pain, with history of osteomyelitis right great toe s/p amputation admitted for osteomyelitis of the right 2nd toe with right lower extremity cellulitis and acute COPD exacerbation Acute osteomyelitis of the right 2nd toe and right lower extremity cellulitis X-ray of the right foot shows developing osteomyelitis of the right 2nd toe MRI right foot ordered for better characterization and evaluation of osteomyelitis ESR and CRP pending. Mild leukocytosis 11.1. No sepsis/severe sepsis IV Zosyn. Patient allergy to vancomycin. IV linezolid Arterial Doppler ordered to evaluate for worsening PAD Vascular surgery and Infectious Disease consult Follow CBC, cultures COPD exacerbation with chronic hypoxemic respiratory failure IV methylprednisolone 40 mg b.i.d. DuoNebs q.4h CXR negative for any focal consolidation Check RPP Continue maintenance inhalers Continue supplemental O2 per protocol Paroxysmal atrial fibrillation-rate controlled Continue Xarelto for anticoagulation Coreg for rate control PVD As above continue xarelto and plavix Heart failure reduced ejection fraction No exacerbation po diuretics BPH Continue Flomax ?hx type 2 diabetes pt reports diagnosed 20 years ago hgb a1c pending (last measured 01/21 at 5.5%) Can give low sodium diet POC glucose GERD continue ppi HLD statin DVT prophylaxis- xarelto Full code Pt requires inpt stay at least 2 midnights for evaluation for acute cellulitis and osteomyelitis of the right foot requiring IV broad-spectrum antibiotics, expert consultation, and close monitoring of cultures with possible surgical intervention versus long-term antibiotics Quality Stroke Does the patient have a stroke diagnosis?: No VTE Prior VTE?: No VTE Risk Level:: Medical - moderate - high VTE Device Contraindication: Treatment Not Indicated VTE Drug Contraindication: N/A - Med Ordered
[2024-06-27 20:15] LABS: C Reactive Protein 20.31 mg/dL (< or = 0.50)
--- NOTE | 2024-06-27 20:15 | PC.NURSE ---
This greeting card writer assumed care of this Pt at 1900. Pt A&Ox3, MRI screening for completed with Pt and family at bedside.
[2024-06-27] MEDS: Albuterol/Iprat 2.5/0.5MG 3 ML AMPUL.NEB INHALE (20:16)
[2024-06-27 20:22] VITALS: PULSE 80; RESP 16; O2SAT 96
[2024-06-27 20:56] LABS: Vancomycin Trough < 2.0 mcg/mL (10.0-20.0)
[2024-06-27] MEDS: Linezolid/D5W 600 MG/300 ML PIGGYBACK 300 MG IV (20:58)
[2024-06-27] MEDS: methylPREDNISolone Sod Succ 40 MG/ML VIAL IVPUSH (20:58)
[2024-06-27 21:05] LABS: Glucose, Whole Blood 141 mg/dL (60-115)
[2024-06-27 21:08] LABS: Erythrocyte Sedimentation Rate 26 MM/HR (0-15)
[2024-06-28] VITALS (8 sets, daily range): BP systolic 100–150; BP diastolic 55–79; PULSE 59–80; RESP 16–20; TEMP 36.1–36.6; O2SAT 95–100
[2024-06-28] MEDS: Piperacillin Sodium/Tazobactam 4.5 GM in 0.9 % Sodium Chloride 100 ML IV ×5 (01:09→23:04)
[2024-06-28] MEDS: 0.9 % Sodium Chloride Flush 3 ML SYRINGE IVFLUSH ×3 (01:10→23:05)
[2024-06-28] MEDS: oxyCODONE HCl Immed Release 5 MG TABLET PO ×4 (01:19→19:27)
[2024-06-28 05:30] LABS: Basophils Percent Auto 0.1 % (0-2); Hematocrit 37.8 % (42.0-52.0); Hemoglobin 12.4 g/dl (14.0-18.0); Imm Gran Abs Auto 0.04 X10*3/uL (0.00-0.03); Imm Gran Pct Auto 0.4 % (0.0-0.4); Lymphocytes Absolute Auto 0.6 X10*3/uL (1.2-4.9); Lymphocytes Percent Auto 5.4 % (20-40); MANUAL DIFF FLAG SCAN; Mean Corpuscular HGB Conc 32.8 g/dl (31.0-36.0); Mean Corpuscular Volume 88.5 fL (80.0-98.0); Mean Platelet Volume 10.6 fL (9.4-12.4); Monocytes Absolute Auto 0.3 X10*3/uL (0.1-1.2); Monocytes Percent Auto 2.5 % (2-11); Neutrophils Absolute Auto 9.3 x10*3/uL (2.0-8.3); Neutrophils Percent Auto 91.6 % (45-73); Platelet Count 165 X10*3/uL (160-400); Red Blood Count 4.27 X10*6/uL (4.60-5.80); Red Cell Distribution Width 14.1 % (11.0-16.0); SCAN SMEAR FLAG 1; White Blood Count 10.2 X10*3/uL (4.8-10.8)
[2024-06-28 05:45] LABS: Anion Gap 15 (12-20); Blood Urea Nitrogen 31 mg/dL (9-16); Calcium 8.4 mg/dL (8.4-10.2); Carbon Dioxide 24 mmol/L (22-29); Chloride 104 mmol/L (96-108); Creatinine Clr Calc Pharmacy 69.1; Estimated Glomerular Filt Rate > 60; Glucose Random 159 mg/dL (60-115); Potassium 4.6 mmol/L (3.3-5.1); Sodium 138 mmol/L (135-145)
[2024-06-28 05:57] LABS: SLIDE REVIEW VERIFIED
--- NOTE | 2024-06-28 06:14 | PC.NURSE ---
Pt awake, able to pivot to bedside commode with stand by assist.
[2024-06-28 06:24] LABS: Estimated Average Glucose 120 mg/dL; Hemoglobin A1C 132.9753 umol/L; Hemoglobin A1c % 5.8 % (<6.0); Total Hemoglobin (HGBA1C) 3298.8296 umol/L
[2024-06-28] MEDS: Insulin Lispro 100 UNIT/ML 3 ML VIAL SUBCUT ×4 (07:40→22:10)
[2024-06-28] MEDS: methylPREDNISolone Sod Succ 40 MG/ML VIAL IVPUSH ×2 (07:41→19:24)
[2024-06-28 08:13] LABS: Glucose, Whole Blood 154 mg/dL (60-115)
--- NOTE | 2024-06-28 09:20 | PHA.MEDREC ---
Addendum entered by Rosales Santiago 06/28/24 09:34: reviewed Original Note: Pharmacy Consult ? Medication Reconciliation Pharmacy has completed the medication reconciliation. Spoke to and family at bedside. Patient states he no longer takes Cyclobenaprine 10 mg, Ipratropium 0.5 mg-Albuterol 3 mg. Patient states he is taking Xtampza Er 18 mg and Oxycondone 5 mg.
[2024-06-28] MEDS: Linezolid/D5W 600 MG/300 ML PIGGYBACK 300 MG IV ×2 (10:23→19:25)
[2024-06-28 11:26] LABS: Adenovirus PCR Not Detected (Not Detect.); Bordetella parapertussis PCR Not Detected (Not Detect.); Bordetella pertussis PCR Not Detected (Not Detect.); Chlamydia pneumoniae PCR Not Detected (Not Detect.); Coronavirus 229E PCR Not Detected (Not Detect.); Coronavirus HKU1 PCR Not Detected (Not Detect.); Coronavirus NL63 PCR Not Detected (Not Detect.); Coronavirus OC43 PCR Not Detected (Not Detect.); Human metapneumovirus PCR Not Detected (Not Detect.); Influenza A PCR Not Detected (Not Detect.); Mycoplasma pneumoniae PCR Not Detected (Not Detect.); Parainfluenza 1 PCR Not Detected (Not Detect.); Parainfluenza 2 PCR Not Detected (Not Detect.); Parainfluenza 3 PCR Not Detected (Not Detect.); Parainfluenza 4 PCR Not Detected (Not Detect.); RSV PCR Not Detected (Not Detect.); Rhino/Enterovirus PCR Not Detected (Not Detect.)
[2024-06-28] MEDS: Albuterol/Iprat 2.5/0.5MG 3 ML AMPUL.NEB INHALE ×2 (11:44→18:44)
[2024-06-28 11:45] LABS: Influenza A H1 PCR Not Detected (Not Detect.); Influenza A H1-2009 PCR Not Detected (Not Detect.); Influenza A H3 PCR Not Detected (Not Detect.); Influenza B PCR Not Detected (Not Detect.); SARS-CoV-2 PCR Not Detected (Not Detect.)
[2024-06-28 11:48] LABS: Glucose, Whole Blood 208 mg/dL (60-115)
--- NOTE | 2024-06-28 12:18 | MHC.CM.PN ---
pt lives with family he is on home 02 he may need assistance with transport home dc plan home
[2024-06-28] MEDS: Flu Vacc TS2024-25(6mos up)/PF 0.5 ML SYRINGE IM (12:47)
--- NOTE | 2024-06-28 13:20 | P.CONGS_ITS ---
<Statement entered by Oleksandr Kearns MD - 06/28/24 15:27> I have seen and evaluated the patient and agree with history, findings, assessment and plan documented by Lizbet Miguel PA-c. Case reviewed with Dr. Patricia. At the current time motor and sensation intact. Foot does not appear acutely ischemic. Will plan for continued IV antibiotics. Will follow up with primary care team. History of Present Illness Consult details Consult date: 06/28/24 Narrative: We were consulted for Russell, for concerns of osteo in the right second toe as well as nonhealing ulcers. He presented to the ER yesterday for possible CHF/COPD exacerbation with concerns of bilateral lower extremity swelling and a weight gain of 5 pounds over a day. He has a medical hx significant for a right great toe amputation, appx 3y ago in [place], COPD, CHF, PAD, AAA measuring 4cm appx 6m ago, HTN, peripheral neuropathy, BPH, and prediabetes. He states that he has noticed some small wounds over his 2nd right toe for awhile now but they started to hurt just recently. He also states he began having swelling in his lower extremities over the last 2 days, which brought him to the ER. He states his great toe amputation was appx 3y ago in [place]. He was also found to have an AAA on CXR appx 6m ago, he states measuring 4cm, he remains asymptomatic. He states that the pain in his toe has gotten better since his admission. He states he is able to bear weight on his foot a little more today. He denies any injuries to the foot. He is a current everyday smoker, smoking 1 cigarette a day; he states he is a former significant smoker. He is not a diabetic. Review of Systems 2 Constitutional: Constitutional: Reports as per HPI and Denies weakness ENT: Reports Normal hearing present and Denies dizziness Cardiovascular: Cardiovascular: Reports as per HPI, Denies chest pain, Denies chest pain at rest, Denies chest pain with activity, Denies dyspnea and Denies dyspnea on exertion Respiratory: Respiratory: Reports as per HPI, Denies cough, Denies dyspnea and Denies dyspnea on exertion Gastrointestinal: Gastrointestinal: Reports as per HPI, Denies abdominal pain, Denies nausea and Denies vomiting Musculoskeletal: Musculoskeletal: Denies numbness Integumentary/Breasts: Skin/Breast: Reports as per HPI, Denies erythema and Denies wounds Neurologic: Reports Normal hearing present, Denies dizziness, Denies numbness, Denies Sensory deficit (Neuro) and Denies weakness Psychiatric: Psychiatric: Reports no additional psychiatric complaints Endocrine: Endocrine: Reports no additional endocrine complaints [facility] Past Medical History Medical History COPD (chronic obstructive pulmonary disease) GERD (gastroesophageal reflux disease) Hyperlipidemia Hypertension BPH (benign prostatic hyperplasia) CHF (congestive heart failure) Infrarenal abdominal aortic aneurysm (AAA) without rupture Peripheral vascular disease DDD (degenerative disc disease), lumbosacral Nicotine dependence, cigarettes, uncomplicated Nocturnal hypoxemia PAD (peripheral artery disease) Paroxysmal atrial fibrillation Social History Social History Household Members: Other Household Members Other:: niece and family live upstairs Housing: House Do you presently have visiting nurse or other home services: No Patient Tobacco Use Status: Current everyday Tobacco user Tobacco use type: Cigarette Cigarettes Per Day: 1 Years Smoked: 50 plus e-Cigarette/Vaping Use: Former Use Second Hand Smoke Exposure: No service: No Current occupational status: retired Cognitive needs: No Hearing needs: Yes Vision needs: Yes Meds Allergies Allergy/AdvReac Type Severity Reaction Status Date / Time lemon Allergy Anaphylaxis Verified 06/27/24 15:25 morphine Allergy Anaphylaxis Verified 06/27/24 15:25 vancomycin Allergy Chest Pain Verified 06/27/24 15:25 Active Medications: Current Medications Acetaminophen (Acetaminophen 325 Mg Tablet) 650 mg PO Q6H PRN PRN Reason: Pain, Mild 1-3,fever,headache Albuterol Sulfate (Albuterol Sulfate 90 Mcg 8 Gm Inhaler) 2 puff INHALE Q6H PRN PRN Reason: shortness of breath or wheezing Albuterol/Ipratropium (Albuterol/Iprat 2.5/0.5mg 3 Ml Ampul.Neb) 3 ml INHALE RQ4H WHILE AWAKE [facility] Last Admin: 06/28/24 11:44 Dose: 3 ml Atorvastatin Calcium (Atorvastatin Calcium 40 Mg Tablet) 40 mg PO DAILY [facility] Calcium Carbonate (Calcium Carbonate 750 Mg Tab.Chew) 750 mg PO Q4H PRN PRN Reason: Heartburn Celecoxib (Celecoxib 100 Mg Capsule) 100 mg PO BEDTIME [facility] Clopidogrel Bisulfate (Clopidogrel Bisulfate 75 Mg Tablet) 75 mg PO DAILY [facility] Dextrose (Dextrose 50 % 25 Gm/50 Ml Syringe) 25 gm IVPUSH Q15M PRN; Protocol PRN Reason: per Hypoglycemia Standing Ord. Famotidine (Famotidine 20 Mg Tablet) 20 mg PO DAILY [facility] Fluticasone/Umeclidinium/Vilanterol (Fluticasone/Umeclidinium/Vilanterol 200/62.5/25 Blst.W.Dev) 1 puff INHALE RDAILY [facility] Furosemide (Furosemide 40 Mg Tablet) 40 mg PO DAILY [facility]; Protocol Glucose (Glucose Gel 15 Gm Gel..Gram.) 15 gm PO Q15M PRN; Protocol PRN Reason: per Hypoglycemia Standing Ord. Hydroxyzine HCl (Hydroxyzine Hcl 25 Mg Tablet) 25 mg PO TID PRN PRN Reason: itching Piperacillin Sod/Tazobactam (Sod 4.5 gm/ Sodium Chloride) 100 mls @ 200 mls/hr IV Q6H [facility] Last Admin: 06/28/24 12:49 Dose: 200 mls/hr Linezolid (Zyvox/D5w) 600 mg in 300 mls @ 300 mls/hr IV Q12H [facility] Last Infusion: 06/28/24 11:44 Dose: Infused Insulin Human Lispro (Insulin Lispro 100 Unit/Ml 3 Ml Vial) 0 unit SUBCUT QIDACHS [facility]; Protocol Last Admin: 06/28/24 12:45 Dose: 4 unit Lisinopril (Lisinopril 10 Mg Tablet) 10 mg PO DAILY [facility]; Protocol Magnesium Hydroxide (Milk Of Magnesia 30 Ml Oral.Susp) 30 ml PO DAILY PRN PRN Reason: Constipation Melatonin (Melatonin 3 Mg Tablet) 6 mg PO BEDTIME PRN PRN Reason: Insomnia Methylprednisolone Sodium Succinate (Methylprednisolone Sod Succ 40 Mg/Ml Vial) 40 mg IVPUSH Q12H [facility] Last Admin: 06/28/24 07:41 Dose: 40 mg Non-Formulary Medication (Oxycodone Myristate [Xtampza Er]) 18 mg PO BID [facility] Non-Formulary Medication (Magnesium) 250 mg PO DAILY [facility] Non-Formulary Medication (Dexlansoprazole) 60 mg PO DAILY [facility] Non-Formulary Medication (Pantoprazole) 40 mg PO DAILY@0630 [facility] Pregabalin (Pregabalin 100 Mg Capsule) 100 mg PO TID [facility] Rivaroxaban (Rivaroxaban 10 Mg Tablet) 10 mg PO DAILY [facility] Sodium Chloride (0.9 % Sodium Chloride Flush 3 Ml Syringe) 3 ml IVFLUSH QSHIFT [facility] Last Admin: 06/28/24 09:34 Dose: Not Given Tamsulosin HCl (Tamsulosin Hcl 0.4 Mg Capsule) 0.8 mg PO DAILY [facility] Home Medications ?Medication ?Instructions ?Recorded ?Confirmed ?Last Taken ?Type celecoxib 100 mg capsule 100 mg PO BEDTIME 01/09/24 06/28/24 06/27/24 History magnesium 250 mg tablet 250 mg PO DAILY 01/09/24 06/28/24 06/27/24 History furosemide 40 mg tablet 40 mg PO DAILY 06/07/24 06/28/24 06/27/24 History fluticasone fur. 200 mcg-umeclid 1 ea inhalation DAILY 06/28/24 06/28/24 06/27/24 History 62.5 mcg-vilant 25 mcg inhalat.powder (Trelegy Ellipta) oxycodone 5 mg tablet 5 mg PO Q4H PRN pain 06/28/24 06/28/24 Unknown History oxycodone myristate 18 mg capsule 18 mg PO BID 06/28/24 06/28/24 06/27/24 History sprinkle extended release 12hr(DON'T CRUSH) (Xtampza ER) Physical Exam 2 Vital Signs: Vital Signs: Last Vital Signs Temp 97.4 F 06/28/24 11:14 Pulse 80 06/28/24 11:46 Resp 18 06/28/24 11:46 BP 146/71 H 06/28/24 11:14 Pulse Ox 100 06/28/24 11:14 O2 Del Method Nasal Cannula 06/28/24 11:14 O2 Flow Rate 2 06/28/24 11:14 Oxygen Flow Rate 2 06/27/24 15:24 BMI result Body Mass Index 31.8 Const: General: comfortable and no acute distress O rientation/consciousness: patient oriented x3 HEENT: Ears: hearing grossly normal bilaterally Resp: Effort & Inspection: normal respiratory effort and able to speak in complete sentences Auscultation: clear to auscultation bilaterally Cardio: Rate: regular rate Rhythm: regular rhythm Heart sounds: S1 normal heart sound present and S2 normal heart sound present Bruits: no abdominal aortic bruits, no carotid bruits, no femoral bruits and no renal bruits GI: Palpation (GI): No Abdominal aortic bruit present Neuro: General: patient oriented x3 Cranial nerves: Yes Normal hearing present Sensory Exam: No Sensory deficit (Neuro) Extrem: Other: Right 2nd toe: 2 small wounds on the toe and one around the toenail/nail bed. Toenail thick and curled. Toe is slightly erythematous but not warm to the touch. No bleeding or discharge noted from the wounds. Dry eschar/scabbing noted on the 2 smaller wounds. Bilateral lower extremities: +1/2 pitting edema noted. Erythematous discoloration noted from the tibial tuberosity to the ankles. Palpable DP pulses. Results Labs 06/28/24 05:06 06/28/24 05:06 Labs: Abnormal lab results 06/27/24 06/27/24 06/27/24 Range/Units 15:39 20:23 20:59 WBC 11.1 H (4.8-10.8) X10*3/uL RBC 4.46 L (4.60-5.80) X10*6/uL Hgb 13.1 L (14.0-18.0) g/dl Hct 39.1 L (42.0-52.0) % Neut % (Auto) 81.4 H (45-73) % Lymph % (Auto) 9.2 L (20-40) % Lymph # (Auto) 1.0 L (1.2-4.9) X10*3/uL Abs Immat Gran (auto) 0.04 H (0.00-0.03) X10*3/uL Absolute Neuts (auto) 9.0 H (2.0-8.3) x10*3/uL ESR 26 H (0-15) MM/HR BUN 33 H (9-16) mg/dL POC Glucose 141 H (60-115) mg/dL Random Glucose 138 H (60-115) mg/dL Total Bilirubin 1.4 H (0.0-1.0) mg/dL AST 59 H (5-37) U/L C-Reactive Protein 20.31 H (< or = 0.50) mg/dL Albumin 3.4 L (3.5-5.0) g/dL Vancomycin Trough < 2.0 L (10.0-20.0) mcg/mL 06/28/24 06/28/24 06/28/24 Range/Units 05:06 07:19 11:23 WBC (4.8-10.8) X10*3/uL RBC 4.27 L (4.60-5.80) X10*6/uL Hgb 12.4 L (14.0-18.0) g/dl Hct 37.8 L (42.0-52.0) % Neut % (Auto) 91.6 H (45-73) % Lymph % (Auto) 5.4 L (20-40) % Lymph # (Auto) 0.6 L (1.2-4.9) X10*3/uL Abs Immat Gran (auto) 0.04 H (0.00-0.03) X10*3/uL Absolute Neuts (auto) 9.3 H (2.0-8.3) x10*3/uL ESR (0-15) MM/HR BUN 31 H (9-16) mg/dL POC Glucose 154 H 208 H (60-115) mg/dL Random Glucose 159 H (60-115) mg/dL Total Bilirubin (0.0-1.0) mg/dL AST (5-37) U/L C-Reactive Protein (< or = 0.50) mg/dL Albumin (3.5-5.0) g/dL Vancomycin Trough (10.0-20.0) mcg/mL Short CBC 06/27/24 06/28/24 Range/Units 15:39 05:06 WBC 11.1 H 10.2 (4.8-10.8) X10*3/uL Hgb 13.1 L 12.4 L (14.0-18.0) g/dl Hct 39.1 L 37.8 L (42.0-52.0) % Plt Count 173 165 (160-400) X10*3/uL BMP 06/27/24 06/28/24 15:39 05:06 Sodium 137 138 Potassium 4.4 D 4.6 Chloride 104 104 Carbon Dioxide 23 24 BUN 33 H 31 H Creatinine 1.10 1.06 Calcium 8.5 D 8.4 Liver Function 06/27/24 Range/Units 15:39 Total Bilirubin 1.4 H (0.0-1.0) mg/dL AST 59 H (5-37) U/L ALT 21 (0-40) U/L Alkaline Phosphatase 86 (39-117) U/L Albumin 3.4 L (3.5-5.0) g/dL All other labs normal. Assessment and Plan (1) PAD (peripheral artery disease): Status: Acute Plan We were consulted for Russell, for concerns of nonhealing wounds on the right foot with bilateral lower extremity swelling. He was found to have lucency along the head of the 2nd middle phalanx which raises suspicion for developing osteo on foot XR; foot MRI without ki revealed no bone marrow edema to suggest osteo, in the absence of contrast, occult osteo cannot be excluded. The pt had an arterial duplex US today which revealed moderate-severe diseases throughout the interrogated arteries in the right lower extremity. He was started on IV Linezolid, due to a Vanco allergy. The pt states that he is not a diabetic and these wounds are not due to diabetic ulcers, which he states he always gets diagnosed with. He states that he had to have an amputation of the right great toe due to an nonhealing wound, and does not want to go that route again. He states he would like to do IV Abx and see what happens. There is no acute vascular surgical intervention at this point. The pt would prefer not to have surgery at this point. We will continue to monitor. If there are any questions or concerns, please do not hesitate to reach out to us. Procedures Date of Service Date of Service: 06/28/24
--- NOTE | 2024-06-28 13:54 | HO.PM.IMPN ---
Subjective Subjective Date of Service: 06/28/24 Interval History: No acute issues since admission. Pain control adequate Review of Systems Denies chest pain Denies shortness of breath Denies nausea vomiting diarrhea Denies fever chills Physical Exam Vital Signs: Vital Signs: Last Vital Signs Temp 97.4 F 06/28/24 11:14 Pulse 80 06/28/24 11:46 Resp 18 06/28/24 11:46 BP 146/71 H 06/28/24 11:14 Pulse Ox 100 06/28/24 11:14 O2 Del Method Nasal Cannula 06/28/24 11:14 O2 Flow Rate 2 06/28/24 11:14 Oxygen Flow Rate 2 06/27/24 15:24 BMI result Body Mass Index 31.8 Const: Other: Awake alert no acute distress Resp: Other: Diminished at bases bilaterally with scattered expiratory wheezes Cardio: Other: No S4; positive S1-S2; no S3 murmurs rubs or gallops GI: Other: Soft nontender nondistended normoactive bowel sounds Extrem: Other: No edema bilaterally Objective Data Active Medications Acetaminophen (Acetaminophen 325 Mg Tablet) 650 mg PO Q6H PRN PRN Reason: Pain, Mild 1-3,fever,headache Albuterol Sulfate (Albuterol Sulfate 90 Mcg 8 Gm Inhaler) 2 puff INHALE Q6H PRN PRN Reason: shortness of breath or wheezing Albuterol/Ipratropium (Albuterol/Iprat 2.5/0.5mg 3 Ml Ampul.Neb) 3 ml INHALE RQ4H WHILE AWAKE [facility] Last Admin: 06/28/24 11:44 Dose: 3 ml Documented By: JYOTHI Atorvastatin Calcium (Atorvastatin Calcium 40 Mg Tablet) 40 mg PO DAILY [facility] Calcium Carbonate (Calcium Carbonate 750 Mg Tab.Chew) 750 mg PO Q4H PRN PRN Reason: Heartburn Celecoxib (Celecoxib 100 Mg Capsule) 100 mg PO BEDTIME [facility] Clopidogrel Bisulfate (Clopidogrel Bisulfate 75 Mg Tablet) 75 mg PO DAILY [facility] Dextrose (Dextrose 50 % 25 Gm/50 Ml Syringe) 25 gm IVPUSH Q15M PRN; Protocol PRN Reason: per Hypoglycemia Standing Ord. Famotidine (Famotidine 20 Mg Tablet) 20 mg PO DAILY [facility] Fluticasone/Umeclidinium/Vilanterol (Fluticasone/Umeclidinium/Vilanterol 200/62.5/25 Blst.W.Dev) 1 puff INHALE RDAILY [facility] Furosemide (Furosemide 40 Mg Tablet) 40 mg PO DAILY [facility]; Protocol Glucose (Glucose Gel 15 Gm Gel..Gram.) 15 gm PO Q15M PRN; Protocol PRN Reason: per Hypoglycemia Standing Ord. Hydroxyzine HCl (Hydroxyzine Hcl 25 Mg Tablet) 25 mg PO TID PRN PRN Reason: itching Piperacillin Sod/Tazobactam (Sod 4.5 gm/ Sodium Chloride) 100 mls @ 200 mls/hr IV Q6H [facility] Last Infusion: 06/28/24 13:23 Dose: Infused Documented By: LEEROY Linezolid (Zyvox/D5w) 600 mg in 300 mls @ 300 mls/hr IV Q12H [facility] Last Infusion: 06/28/24 11:44 Dose: Infused Documented By: LEEROY Insulin Human Lispro (Insulin Lispro 100 Unit/Ml 3 Ml Vial) 0 unit SUBCUT QIDACHS [facility]; Protocol Last Admin: 06/28/24 12:45 Dose: 4 unit Documented By: LEEROY Lisinopril (Lisinopril 10 Mg Tablet) 10 mg PO DAILY [facility]; Protocol Magnesium Hydroxide (Milk Of Magnesia 30 Ml Oral.Susp) 30 ml PO DAILY PRN PRN Reason: Constipation Magnesium Oxide (Magnesium Oxide 400 Mg Tablet) 400 mg PO DAILY [facility] Melatonin (Melatonin 3 Mg Tablet) 6 mg PO BEDTIME PRN PRN Reason: Insomnia Methylprednisolone Sodium Succinate (Methylprednisolone Sod Succ 40 Mg/Ml Vial) 40 mg IVPUSH Q12H [facility] Last Admin: 06/28/24 07:41 Dose: 40 mg Documented By: RICHMOND Non-Formulary Medication (Oxycodone Myristate [Xtampza Er]) 18 mg PO BID [facility] Pantoprazole Sodium (Pantoprazole Sodium 20 Mg Tablet.Dr) 40 mg PO DAILY@0630 [facility] Pregabalin (Pregabalin 100 Mg Capsule) 100 mg PO TID [facility] Rivaroxaban (Rivaroxaban 10 Mg Tablet) 10 mg PO DAILY [facility] Sodium Chloride (0.9 % Sodium Chloride Flush 3 Ml Syringe) 3 ml IVFLUSH QSHIFT [facility] Last Admin: 06/28/24 09:34 Dose: Not Given Documented By: RICHMOND Non-Admin Reason: IV Running Tamsulosin HCl (Tamsulosin Hcl 0.4 Mg Capsule) 0.8 mg PO DAILY [facility] Labs 06/28/24 05:06 06/28/24 05:06 Labs: Laboratory Results - last 24 hr 06/27/24 06/27/24 06/27/24 15:39 16:10 20:23 MCV 87.7 MCH 29.4 MCHC 33.5 RDW 14.2 Plt Count 173 MPV 10.3 Immature Gran % (Auto) 0.4 Neut % (Auto) 81.4 H Lymph % (Auto) 9.2 L [place] % (Auto) 7.7 Eos % (Auto) 0.9 Baso % (Auto) 0.4 Lymph # (Auto) 1.0 L [place] # (Auto) 0.9 Eos # (Auto) 0.1 Baso # (Auto) 0.0 Abs Immat Gran (auto) 0.04 H Absolute Neuts (auto) 9.0 H Absolute Nucleated RBC 0.000 Nucleated RBC % (auto) 0.0 Smear Tech's Comments ESR 26 H Anion Gap 14 Estim Creat Clear Calc 66.6 Estimated GFR > 60 POC Glucose Random Glucose 138 H Estimat Average Glucose 120 Hemoglobin A1c % 5.8 Lactic Acid 1.4 Calcium 8.5 D Total Bilirubin 1.4 H AST 59 H ALT 21 Alkaline Phosphatase 86 C-Reactive Protein 20.31 H B-Natriuretic Peptide 37 Total Protein 6.5 Albumin 3.4 L Vancomycin Trough < 2.0 L Respiratory Panel Beth Adenovirus (Rapid PCR) B.pert (TEM-PCR) B.parapertussis DNA PCR C. pneumoniae DNA (PCR) Coronavirus OC43 (PCR) Coronavirus HKU1 (PCR) Coronavirus 229E (PCR) Coronavirus NL63 (PCR) Human Metapneumovir PCR Influenza A (RT-PCR) Influenza A (H1) PCR Influ A (H1/09) PCR Influenza A (H3) PCR Influenza B (RT-PCR) M. pneumoniae (PCR) Parainfluenza 1 (PCR) Parainfluenza 2 (PCR) Parainfluenza 3 (PCR) Parainfluenza 4 (PCR) RSV (PCR) Entero/Rhino (PCR) SARS-CoV-2 RNA (RT-PCR) 03/30/25 03/30/25 03/30/25 20:59 21:07 Unknown MCV MCH MCHC RDW Plt Count MPV Immature Gran % (Auto) Neut % (Auto) Lymph % (Auto) [place] % (Auto) Eos % (Auto) Baso % (Auto) Lymph # (Auto) [place] # (Auto) Eos # (Auto) Baso # (Auto) Abs Immat Gran (auto) Absolute Neuts (auto) Absolute Nucleated RBC Nucleated RBC % (auto) Smear Tech's Comments ESR Anion Gap Estim Creat Clear Calc Estimated GFR POC Glucose 141 H Random Glucose Estimat Average Glucose Cancelled Hemoglobin A1c % Cancelled Lactic Acid Calcium Total Bilirubin AST ALT Alkaline Phosphatase C-Reactive Protein B-Natriuretic Peptide Total Protein Albumin Vancomycin Trough Respiratory Panel Beth See Note Adenovirus (Rapid PCR) Not Detected B.pert (TEM-PCR) Not Detected B.parapertussis DNA PCR Not Detected C. pneumoniae DNA (PCR) Not Detected Coronavirus OC43 (PCR) Not Detected Coronavirus HKU1 (PCR) Not Detected Coronavirus 229E (PCR) Not Detected Coronavirus NL63 (PCR) Not Detected Human Metapneumovir PCR Not Detected Influenza A (RT-PCR) Not Detected Influenza A (H1) PCR Not Detected Influ A (H1/09) PCR Not Detected Influenza A (H3) PCR Not Detected Influenza B (RT-PCR) Not Detected M. pneumoniae (PCR) Not Detected Parainfluenza 1 (PCR) Not Detected Parainfluenza 2 (PCR) Not Detected Parainfluenza 3 (PCR) Not Detected Parainfluenza 4 (PCR) Not Detected RSV (PCR) Not Detected Entero/Rhino (PCR) Not Detected SARS-CoV-2 RNA (RT-PCR) Not Detected 06/28/24 06/28/24 06/28/24 05:06 07:19 11:23 MCV 88.5 MCH 29.0 MCHC 32.8 RDW 14.1 Plt Count 165 MPV 10.6 Immature Gran % (Auto) 0.4 Neut % (Auto) 91.6 H Lymph % (Auto) 5.4 L [place] % (Auto) 2.5 Eos % (Auto) 0.0 Baso % (Auto) 0.1 Lymph # (Auto) 0.6 L [place] # (Auto) 0.3 Eos # (Auto) 0.0 Baso # (Auto) 0.0 Abs Immat Gran (auto) 0.04 H Absolute Neuts (auto) 9.3 H Absolute Nucleated RBC 0.000 Nucleated RBC % (auto) 0.0 Smear Tech's Comments VERIFIED ESR Anion Gap 15 Estim Creat Clear Calc 69.1 Estimated GFR > 60 POC Glucose 154 H 208 H Random Glucose 159 H Estimat Average Glucose Hemoglobin A1c % Lactic Acid Calcium 8.4 Total Bilirubin AST ALT Alkaline Phosphatase C-Reactive Protein B-Natriuretic Peptide Total Protein Albumin Vancomycin Trough Respiratory Panel Beth Adenovirus (Rapid PCR) B.pert (TEM-PCR) B.parapertussis DNA PCR C. pneumoniae DNA (PCR) Coronavirus OC43 (PCR) Coronavirus HKU1 (PCR) Coronavirus 229E (PCR) Coronavirus NL63 (PCR) Human Metapneumovir PCR Influenza A (RT-PCR) Influenza A (H1) PCR Influ A (H1/) PCR Influenza A (H3) PCR Influenza B (RT-PCR) M. pneumoniae (PCR) Parainfluenza 1 (PCR) Parainfluenza 2 (PCR) Parainfluenza 3 (PCR) Parainfluenza 4 (PCR) RSV (PCR) Entero/Rhino (PCR) SARS-CoV-2 RNA (RT-PCR) Assessment and Plan (1) Osteomyelitis: Status: Acute (2) COPD exacerbation: Status: Acute Plan 79-year-old male with history of paroxysmal atrial fibrillation anticoagulated with Eliquis, peripheral arterial disease, BPH, heart failure reduced ejection fraction, history of type 2 diabetes per patient, COPD with chronic hypoxemic respiratory failure, GERD, hyperlipidemia, chronic low back pain, with history of osteomyelitis right great toe s/p amputation admitted for osteomyelitis of the right 2nd toe with right lower extremity cellulitis and acute COPD exacerbation 1.Acute osteomyelitis of the right 2nd toe and right lower extremity cellulitis -x-ray and inflammatory markers consistent with osteomyelitis -MRI equivocal -IV Zosyn/linezolid -await ID input/vascular surgery 2.COPD exacerbation with chronic hypoxemic respiratory failure - methylprednisolone 40 mg b.i.d. -antibiotics as above -DuoNebs q.4h -supplemental O2 as indicated; titrate to maintain sats greater than equal to 90% 3.Paroxysmal atrial fibrillation -acceptable rate control -continue Plavix/Xarelto 4.Hxtype 2 diabetes -lispro correctional scale.. Given steroids -adjust therapies as indicated Xarelto Full code Requires ongoing hospitalization for IV antibiotics and to complete workup for osteomyelitis along with specialty consultation. Quality Stroke Does the patient have a stroke diagnosis?: No VTE Prior VTE?: No VTE Risk Level:: Medical - moderate - high VTE Device Contraindication: Treatment Not Indicated VTE Drug Contraindication: N/A - Med Ordered
[2024-06-28] MEDS: Clopidogrel Bisulfate 75 MG TABLET PO (15:08)
[2024-06-28] MEDS: lisinopriL 10 MG TABLET PO (15:08)
[2024-06-28] MEDS: Pregabalin 100 MG CAPSULE PO ×2 (15:08→22:09)
[2024-06-28] MEDS: Furosemide 40 MG TABLET PO (15:08)
[2024-06-28 18:01] LABS: Glucose, Whole Blood 245 mg/dL (60-115)
[2024-06-28 21:22] LABS: Glucose, Whole Blood 251 mg/dL (60-115)
[2024-06-28] MEDS: oxyCODONE HCl ER 10 MG TAB.ER.12H 20 MG PO (22:09)
[2024-06-28] MEDS: Celecoxib 100 MG CAPSULE PO (23:04)
[2024-06-29] MEDS: oxyCODONE HCl Immed Release 5 MG TABLET PO ×3 (01:57→19:29)
[2024-06-29 03:13] VITALS: BP 135/59; PULSE 63; RESP 18; TEMP 36.1; O2SAT 97
[2024-06-29] MEDS: Pantoprazole Sodium 20 MG TABLET.DR 40 MG PO (06:02)
[2024-06-29] MEDS: Piperacillin Sodium/Tazobactam 4.5 GM in 0.9 % Sodium Chloride 100 ML IV ×3 (06:02→17:01)
[2024-06-29 06:58] LABS: MANUAL DIFF FLAG NO
[2024-06-29 07:04] LABS: Basophils Percent Auto 0.1 % (0-2); Hematocrit 35.9 % (42.0-52.0); Hemoglobin 11.8 g/dl (14.0-18.0); Imm Gran Abs Auto 0.08 X10*3/uL (0.00-0.03); Imm Gran Pct Auto 0.6 % (0.0-0.4); Lymphocytes Absolute Auto 0.8 X10*3/uL (1.2-4.9); Lymphocytes Percent Auto 5.3 % (20-40); Mean Corpuscular HGB Conc 32.9 g/dl (31.0-36.0); Mean Corpuscular Volume 88.2 fL (80.0-98.0); Mean Platelet Volume 10.7 fL (9.4-12.4); Monocytes Absolute Auto 0.6 X10*3/uL (0.1-1.2); Monocytes Percent Auto 4.4 % (2-11); Neutrophils Absolute Auto 12.7 x10*3/uL (2.0-8.3); Neutrophils Percent Auto 89.6 % (45-73); Platelet Count 189 X10*3/uL (160-400); Red Blood Count 4.07 X10*6/uL (4.60-5.80); Red Cell Distribution Width 13.9 % (11.0-16.0); White Blood Count 14.1 X10*3/uL (4.8-10.8)
[2024-06-29 07:10] VITALS: BP 158/72; PULSE 57; RESP 16; TEMP 36.7; O2SAT 98
[2024-06-29 07:57] LABS: Glucose, Whole Blood 146 mg/dL (60-115)
[2024-06-29 07:58] LABS: Alanine Aminotransferase 18 U/L (0-40); Alkaline Phosphatase 71 U/L (39-117); Anion Gap 11 (12-20); Aspartate Amino Transferase 28 U/L (5-37); Bilirubin Total 0.4 mg/dL (0.0-1.0); Blood Urea Nitrogen 27 mg/dL (9-16); Calcium 8.2 mg/dL (8.4-10.2); Carbon Dioxide 27 mmol/L (22-29); Chloride 104 mmol/L (96-108); Creatinine Clr Calc Pharmacy 67.2; Estimated Glomerular Filt Rate > 60; Glucose Fasting 149 mg/dL (60-99); Potassium 4.6 mmol/L (3.3-5.1); Sodium 137 mmol/L (135-145); Total Protein 5.9 g/dL (6.5-8.0)
[2024-06-29] MEDS: oxyCODONE HCl ER 10 MG TAB.ER.12H 20 MG PO ×2 (08:27→20:36)
[2024-06-29] MEDS: methylPREDNISolone Sod Succ 40 MG/ML VIAL IVPUSH ×2 (08:27→19:30)
[2024-06-29] MEDS: Atorvastatin Calcium 40 MG TABLET PO (08:28)
[2024-06-29] MEDS: Famotidine 20 MG TABLET PO (08:28)
[2024-06-29] MEDS: Magnesium Oxide 400 MG TABLET PO (08:28)
[2024-06-29] MEDS: Pregabalin 100 MG CAPSULE PO ×3 (08:28→20:37)
[2024-06-29] MEDS: lisinopriL 10 MG TABLET PO (08:28)
[2024-06-29] MEDS: Tamsulosin HCL 0.4 MG CAPSULE 0.8 MG PO (08:28)
[2024-06-29] MEDS: Clopidogrel Bisulfate 75 MG TABLET PO (08:28)
[2024-06-29] MEDS: Rivaroxaban 10 MG TABLET PO (08:28)
[2024-06-29] MEDS: Furosemide 40 MG TABLET PO (08:28)
[2024-06-29] MEDS: Linezolid/D5W 600 MG/300 ML PIGGYBACK 300 MG IV ×2 (08:29→19:30)
[2024-06-29] MEDS: 0.9 % Sodium Chloride Flush 3 ML SYRINGE IVFLUSH ×3 (08:29→20:37)
--- NOTE | 2024-06-29 09:20 | HO.VASCPN ---
Subjective Subjective Date of Service: 06/29/24 Interval history: Russell is doing well this morning. He is getting OOB to the chair. He continues on IV Zosyn and Linezolid for osteo. He states he is eating, drinking, and sleeping well. He has no new concerns this morning. Physical Exam Vital Signs: Vital Signs: Last Vital Signs Temp 98.1 F 06/29/24 07:10 Pulse 57 06/29/24 07:10 Resp 16 06/29/24 07:10 BP 158/72 H 06/29/24 07:10 Pulse Ox 98 06/29/24 07:10 O2 Del Method Nasal Cannula 06/29/24 07:10 O2 Flow Rate 2.0 06/29/24 07:10 Oxygen Flow Rate 2 06/27/24 15:24 BMI result Body Mass Index 31.8 Const: General: comfortable and no acute distress Orientation/consciousness: patient oriented x3 HEENT: Ears: hearing grossly normal bilaterally Resp: Effort & Inspection: normal respiratory effort and able to speak in complete sentences Auscultation: clear to auscultation bilaterally Cardio: Rate: regular rate Rhythm: regular rhythm Heart sounds: S1 normal heart sound present and S2 normal heart sound present Bruits: no abdominal aortic bruits, no carotid bruits, no femoral bruits and no renal bruits GI: Palpation (GI): No Abdominal aortic bruit present Neuro: General: patient oriented x3 Cranial nerves: Yes CN's II-XII intact bilaterally Extrem: Other: Right 2nd toe: 2 small wounds on the toe and one around the toenail/nail bed. Toenail thick and curled. Toe is slightly erythematous but not warm to the touch. No bleeding or discharge noted from the wounds. Dry eschar/scabbing noted on the 2 smaller wounds. Bilateral lower extremities: +1/2 pitting edema noted. Erythematous discoloration noted from the tibial tuberosity to the ankles. Palpable DP pulses. Progress Note: A&P Assessment and plan (1) Osteomyelitis: Status: Acute Assessment and Plan: Russell remains stable from a vascular standpoint. He continues to endorse that he would not like surgical intervention at this point. We would continue with IV abx. We will continue to monitor. If there are any questions or concerns, please do not hesitate to reach out to us. Time Spent With Patient Time: Total time managing care of this patient today ____ minutes. Procedures Date of Service Date of Service: 06/29/24 Quality Stroke Does the patient have a stroke diagnosis?: No VTE Prior VTE?: No VTE Risk Level:: Medical - moderate - high VTE Device Contraindication: Treatment Not Indicated VTE Drug Contraindication: N/A - Med Ordered
[2024-06-29 11:22] LABS: Glucose, Whole Blood 174 mg/dL (60-115)
[2024-06-29] MEDS: Albuterol/Iprat 2.5/0.5MG 3 ML AMPUL.NEB INHALE ×2 (11:40→19:09)
[2024-06-29 11:47] VITALS: PULSE 42; RESP 16; O2SAT 99
[2024-06-29] MEDS: Insulin Lispro 100 UNIT/ML 3 ML VIAL SUBCUT ×3 (12:03→20:35)
[2024-06-29 14:41] VITALS: BP 109/51; PULSE 71; RESP 18; TEMP 36.7; O2SAT 98
--- NOTE | 2024-06-29 15:30 | P.PNIM_ITS ---
Subjective Subjective Date of Service: 06/29/24 Interval History: being followed for right foot cellulitis and COPD exacerbation with chronic hypoxic respiratory failure. good pain control/ denies fever, no chills, tolerating diet. Review of Systems all other system reviewed and are negative. Physical Exam 2 Vital Signs: Vital Signs: Last Vital Signs Temp 98.1 F 06/29/24 14:41 Pulse 71 06/29/24 14:41 Resp 18 06/29/24 14:41 BP 109/51 L 06/29/24 14:41 Pulse Ox 98 06/29/24 14:41 O2 Del Method Nasal Cannula 06/29/24 14:41 O2 Flow Rate 2.0 06/29/24 14:41 Oxygen Flow Rate 2 06/27/24 15:24 BMI result Body Mass Index 31.8 Const: Other: General: AOx3, no acute distress Neck no JVD Resp: Lungs clear , no wheeze,no crackles CVS: regular rhythm GI: +BS, NT, no distention Neuro: non focal Extremities: Right leg s/p great toe amputation, Right 2nd toe 2 small wounds on the toe and one around the toenail/nail bed. slightly erythematous toe no bleeding or discharge noted from the wounds. Dry eschar/scabbing noted on the 2 smaller wounds no foul odor, no swelling Psych: Appropriate affect Objective Data Active Medications Acetaminophen (Acetaminophen 325 Mg Tablet) 650 mg PO Q6H PRN PRN Reason: Pain, Mild 1-3,fever,headache Albuterol Sulfate (Albuterol Sulfate 90 Mcg 8 Gm Inhaler) 2 puff INHALE Q6H PRN PRN Reason: shortness of breath or wheezing Albuterol/Ipratropium (Albuterol/Iprat 2.5/0.5mg 3 Ml Ampul.Neb) 3 ml INHALE RQ4H WHILE AWAKE [facility] Last Admin: 06/29/24 11:40 Dose: 3 ml Documented By: MARCIANO Atorvastatin Calcium (Atorvastatin Calcium 40 Mg Tablet) 40 mg PO DAILY [facility] Last Admin: 06/29/24 08:28 Dose: 40 mg Documented By: LEEROY Calcium Carbonate (Calcium Carbonate 750 Mg Tab.Chew) 750 mg PO Q4H PRN PRN Reason: Heartburn Celecoxib (Celecoxib 100 Mg Capsule) 100 mg PO BEDTIME [facility] Last Admin: 06/28/24 23:04 Dose: 100 mg Documented By: CHINEDU Clopidogrel Bisulfate (Clopidogrel Bisulfate 75 Mg Tablet) 75 mg PO DAILY [facility] Last Admin: 06/29/24 08:28 Dose: 75 mg Documented By: LEEROY Dextrose (Dextrose 50 % 25 Gm/50 Ml Syringe) 25 gm IVPUSH Q15M PRN; Protocol PRN Reason: per Hypoglycemia Standing Ord. Famotidine (Famotidine 20 Mg Tablet) 20 mg PO DAILY [facility] Last Admin: 06/29/24 08:28 Dose: 20 mg Documented By: LEEROY Fluticasone/Umeclidinium/Vilanterol (Fluticasone/Umeclidinium/Vilanterol 200/62.5/ Blst.W.Dev) 1 puff INHALE RDAILY [facility] Last Admin: 06/29/24 08:16 Dose: Not Given Documented By: MARCIANO Non-Admin Reason: Med Not Available Furosemide (Furosemide 40 Mg Tablet) 40 mg PO DAILY [facility]; Protocol Last Admin: 06/29/24 08:28 Dose: 40 mg Documented By: LEEROY Glucose (Glucose Gel 15 Gm Gel..Gram.) 15 gm PO Q15M PRN; Protocol PRN Reason: per Hypoglycemia Standing Ord. Hydroxyzine HCl (Hydroxyzine Hcl 25 Mg Tablet) 25 mg PO TID PRN PRN Reason: itching Piperacillin Sod/Tazobactam (Sod 4.5 gm/ Sodium Chloride) 100 mls @ 200 mls/hr IV Q6H [facility] Last Infusion: 06/29/24 12:59 Dose: Infused Documented By: LEEROY Linezolid (Zyvox/D5w) 600 mg in 300 mls @ 300 mls/hr IV Q12H [facility] Last Infusion: 06/29/24 09:35 Dose: Infused Documented By: LEEROY Insulin Human Lispro (Insulin Lispro 100 Unit/Ml 3 Ml Vial) 0 unit SUBCUT QIDACHS [facility]; Protocol Last Admin: 06/29/24 12:03 Dose: 2 unit Documented By: LEEROY Lisinopril (Lisinopril 10 Mg Tablet) 10 mg PO DAILY [facility]; Protocol Last Admin: 06/29/24 08:28 Dose: 10 mg Documented By: LEEROY Magnesium Hydroxide (Milk Of Magnesia 30 Ml Oral.Susp) 30 ml PO DAILY PRN PRN Reason: Constipation Magnesium Oxide (Magnesium Oxide 400 Mg Tablet) 400 mg PO DAILY [facility] Last Admin: 06/29/24 08:28 Dose: 400 mg Documented By: LEEROY Melatonin (Melatonin 3 Mg Tablet) 6 mg PO BEDTIME PRN PRN Reason: Insomnia Methylprednisolone Sodium Succinate (Methylprednisolone Sod Succ 40 Mg/Ml Vial) 40 mg IVPUSH Q12H [facility] Last Admin: 06/29/24 08:27 Dose: 40 mg Documented By: LEEROY Oxycodone HCl (Oxycodone Hcl Er 10 Mg Tab.Er.12h) 20 mg PO BID [facility] Last Admin: 06/29/24 08:27 Dose: 20 mg Documented By: LEEROY Oxycodone HCl (Oxycodone Hcl Immed Release 5 Mg Tablet) 5 mg PO Q4H PRN PRN Reason: Pain, Moderate(Pain Scale 4-6) Last Admin: 06/29/24 13:58 Dose: 5 mg Documented By: LEEROY Pantoprazole Sodium (Pantoprazole Sodium 20 Mg Tablet.Dr) 40 mg PO DAILY@0630 [facility] Last Admin: 06/29/24 06:02 Dose: 40 mg Documented By: CHINEDU Pregabalin (Pregabalin 100 Mg Capsule) 100 mg PO TID [facility] Last Admin: 06/29/24 13:58 Dose: 100 mg Documented By: LEEROY Rivaroxaban (Rivaroxaban 10 Mg Tablet) 10 mg PO DAILY [facility] Last Admin: 06/29/24 08:28 Dose: 10 mg Documented By: LEEROY Sodium Chloride (0.9 % Sodium Chloride Flush 3 Ml Syringe) 3 ml IVFLUSH QSHIFT [facility] Last Admin: 06/29/24 08:29 Dose: 3 ml Documented By: LEEROY Tamsulosin HCl (Tamsulosin Hcl 0.4 Mg Capsule) 0.8 mg PO DAILY [facility] Last Admin: 06/29/24 08:28 Dose: 0.8 mg Documented By: LEEROY Labs 06/29/24 06:38 06/29/24 06:38 Labs: Laboratory Results - last 24 hr 06/28/24 06/28/24 06/29/24 15:33 20:14 06:38 MCV 88.2 MCH 29.0 MCHC 32.9 RDW 13.9 Plt Count 189 MPV 10.7 Immature Gran % (Auto) 0.6 H Neut % (Auto) 89.6 H Lymph % (Auto) 5.3 L Coffee % (Auto) 4.4 Eos % (Auto) 0.0 Baso % (Auto) 0.1 Lymph # (Auto) 0.8 L Coffee # (Auto) 0.6 Eos # (Auto) 0.0 Baso # (Auto) 0.0 Abs Immat Gran (auto) 0.08 H Absolute Neuts (auto) 12.7 H Absolute Nucleated RBC 0.000 Nucleated RBC % (auto) 0.0 Anion Gap 11 L Estim Creat Clear Calc 67.2 Estimated GFR > 60 POC Glucose 245 H 251 H Fasting Glucose 149 H Calcium 8.2 L Total Bilirubin 0.4 AST 28 ALT 18 Alkaline Phosphatase 71 Total Protein 5.9 L Albumin 3.0 L 06/29/24 06/29/24 07:15 11:05 MCV MCH MCHC RDW Plt Count MPV Immature Gran % (Auto) Neut % (Auto) Lymph % (Auto) Coffee % (Auto) Eos % (Auto) Baso % (Auto) Lymph # (Auto) Coffee # (Auto) Eos # (Auto) Baso # (Auto) Abs Immat Gran (auto) Absolute Neuts (auto) Absolute Nucleated RBC Nucleated RBC % (auto) Anion Gap Estim Creat Clear Calc Estimated GFR POC Glucose 146 H 174 H Fasting Glucose Calcium Total Bilirubin AST ALT Alkaline Phosphatase Total Protein Albumin Microbiology Microbiology Results: Microbiology 06/27/24 16:10 Blood Culture - Preliminary Blood - Venous No growth after 24 hours. 06/27/24 15:39 Blood Culture - Preliminary Blood - Venous No growth after 24 hours. Assessment and Plan (1) Cellulitis of right foot: Status: Acute (2) COPD exacerbation: Status: Acute Plan 79-year-old male with history of paroxysmal atrial fibrillation anticoagulated with Eliquis, peripheral arterial disease, BPH, heart failure reduced ejection fraction, history of type 2 diabetes per patient, COPD with chronic hypoxemic respiratory failure, GERD, hyperlipidemia, chronic low back pain, with history of osteomyelitis right great toe s/p amputation admitted for ? osteomyelitis of the right 2nd toe with right lower extremity cellulitis and acute COPD exacerbation 1.? acute osteomyelitis of the right 2nd toe / right lower extremity cellulitis -x-ray foot showed soft tissue swelling overlying the for foot lucency along the head of the 2nd middle phalanx raises suspicion for developing osteomyelitis, ESR 26 -MRI showed no bone marrow edema to suggest osteomyelitis in the absence of contrast occult osteomyelitis can not be excl - on IV Zosyn/linezolid -await ID input for duration and choice of antibiotic. - seen by vascular surgery they recommend to continue IV antibiotic patient declined surgical intervention. 2.COPD exacerbation with chronic hypoxemic respiratory failure - on iv methylprednisolone 40 mg b.i.d. -antibiotics as above -DuoNebs q.4h - on 2 L supplemental O2 at rest and 4 L at night 3.Paroxysmal atrial fibrillation -acceptable rate control -continue Plavix/Xarelto 4.Hxtype 2 diabetes - stable blood sugar continue lispro correctional scale and diabetic diet. Xarelto Full code Requires ongoing hospitalization for IV antibiotics and for expert consultation. Quality Stroke Does the patient have a stroke diagnosis?: No VTE Prior VTE?: No VTE Risk Level:: Medical - moderate - high VTE Device Contraindication: Treatment Not Indicated VTE Drug Contraindication: N/A - Med Ordered
[2024-06-29 16:23] LABS: Glucose, Whole Blood 203 mg/dL (60-115)
[2024-06-29] MEDS: Cyclobenzaprine HCl 10 MG TABLET PO (17:00)
[2024-06-29 19:03] VITALS: BP 110/53; PULSE 72; RESP 18; TEMP 36.8; O2SAT 97
[2024-06-29 19:09] VITALS: PULSE 72; RESP 18; O2SAT 97
[2024-06-29 20:17] LABS: Glucose, Whole Blood 160 mg/dL (60-115)
[2024-06-29] MEDS: Celecoxib 100 MG CAPSULE PO (21:11)
--- NOTE | 2024-06-29 21:31 | W.PM.IDCN ---
History of Present Illness Data of Consult Service Date: 06/29/24 Requesting physician: Abilio Patricia Primary Care Provider: Kiana Carrillo MD [facility] Reason for consult: right foot erythema He presents with right foot redness and swelling over last week. ESR is 26. He has no fever or chills. He also has cough. Review of Systems Review of Systems: Yes all other systems are reviewed and are negative PMFSH Past Medical History Medical History COPD (chronic obstructive pulmonary disease) GERD (gastroesophageal reflux disease) Hyperlipidemia Hypertension BPH (benign prostatic hyperplasia) CHF (congestive heart failure) Infrarenal abdominal aortic aneurysm (AAA) without rupture Peripheral vascular disease DDD (degenerative disc disease), lumbosacral Nicotine dependence, cigarettes, uncomplicated Nocturnal hypoxemia PAD (peripheral artery disease) Paroxysmal atrial fibrillation Family History Family history: reviewed and not pertinent Social History Social History Household Members: Other Household Members Other:: niece and family live upstairs Housing: House Do you presently have visiting nurse or other home services: No Patient Tobacco Use Status: Current everyday Tobacco user Tobacco use type: Cigarette Cigarettes Per Day: 1 Years Smoked: 50 plus e-Cigarette/Vaping Use: Former Use Second Hand Smoke Exposure: No service: No Current occupational status: retired Cognitive needs: No Hearing needs: Yes Vision needs: Yes Meds Allergies Allergy/AdvReac Type Severity Reaction Status Date / Time lemon Allergy Anaphylaxis Verified 06/27/24 15:25 morphine Allergy Anaphylaxis Verified 06/27/24 15:25 vancomycin Allergy Chest Pain Verified 06/27/24 15:25 Active Medications: Current Medications Acetaminophen (Acetaminophen 325 Mg Tablet) 650 mg PO Q6H PRN PRN Reason: Pain, Mild 1-3,fever,headache Albuterol Sulfate (Albuterol Sulfate 90 Mcg 8 Gm Inhaler) 2 puff INHALE Q6H PRN PRN Reason: shortness of breath or wheezing Albuterol/Ipratropium (Albuterol/Iprat 2.5/0.5mg 3 Ml Ampul.Neb) 3 ml INHALE RQ4H WHILE AWAKE [facility] Last Admin: 06/29/24 19:09 Dose: 3 ml Atorvastatin Calcium (Atorvastatin Calcium 40 Mg Tablet) 40 mg PO DAILY [facility] Last Admin: 06/29/24 08:28 Dose: 40 mg Calcium Carbonate (Calcium Carbonate 750 Mg Tab.Chew) 750 mg PO Q4H PRN PRN Reason: Heartburn Celecoxib (Celecoxib 100 Mg Capsule) 100 mg PO BEDTIME [facility] Last Admin: 06/29/24 21:11 Dose: 100 mg Clopidogrel Bisulfate (Clopidogrel Bisulfate 75 Mg Tablet) 75 mg PO DAILY [facility] Last Admin: 06/29/24 08:28 Dose: 75 mg Cyclobenzaprine HCl (Cyclobenzaprine Hcl 10 Mg Tablet) 10 mg PO TID PRN PRN Reason: spasm Last Admin: 06/29/24 17:00 Dose: 10 mg Dextrose (Dextrose 50 % 25 Gm/50 Ml Syringe) 25 gm IVPUSH Q15M PRN; Protocol PRN Reason: per Hypoglycemia Standing Ord. Famotidine (Famotidine 20 Mg Tablet) 20 mg PO DAILY [facility] Last Admin: 06/29/24 08:28 Dose: 20 mg Fluticasone/Umeclidinium/Vilanterol (Fluticasone/Umeclidinium/Vilanterol 200/62.5/25 Blst.W.Dev) 1 puff INHALE RDAILY [facility] Last Admin: 06/29/24 08:16 Dose: Not Given Furosemide (Furosemide 40 Mg Tablet) 40 mg PO DAILY [facility]; Protocol Last Admin: 06/29/24 08:28 Dose: 40 mg Glucose (Glucose Gel 15 Gm Gel..Gram.) 15 gm PO Q15M PRN; Protocol PRN Reason: per Hypoglycemia Standing Ord. Hydroxyzine HCl (Hydroxyzine Hcl 25 Mg Tablet) 25 mg PO TID PRN PRN Reason: itching Piperacillin Sod/Tazobactam (Sod 4.5 gm/ Sodium Chloride) 100 mls @ 200 mls/hr IV Q6H [facility] Last Infusion: 06/29/24 18:03 Dose: Infused Linezolid (Zyvox/D5w) 600 mg in 300 mls @ 300 mls/hr IV Q12H [facility] Last Infusion: 06/29/24 20:39 Dose: Infused Insulin Human Lispro (Insulin Lispro 100 Unit/Ml 3 Ml Vial) 0 unit SUBCUT QIDACHS [facility]; Protocol Last Admin: 06/29/24 20:35 Dose: 2 unit Lisinopril (Lisinopril 10 Mg Tablet) 10 mg PO DAILY [facility]; Protocol Last Admin: 06/29/24 08:28 Dose: 10 mg Magnesium Hydroxide (Milk Of Magnesia 30 Ml Oral.Susp) 30 ml PO DAILY PRN PRN Reason: Constipation Magnesium Oxide (Magnesium Oxide 400 Mg Tablet) 400 mg PO DAILY [facility] Last Admin: 06/29/24 08:28 Dose: 400 mg Melatonin (Melatonin 3 Mg Tablet) 6 mg PO BEDTIME PRN PRN Reason: Insomnia Methylprednisolone Sodium Succinate (Methylprednisolone Sod Succ 40 Mg/Ml Vial) 40 mg IVPUSH Q12H [facility] Last Admin: 06/29/24 19:30 Dose: 40 mg Oxycodone HCl (Oxycodone Hcl Er 10 Mg Tab.Er.12h) 20 mg PO BID [facility] Last Admin: 06/29/24 20:36 Dose: 20 mg Oxycodone HCl (Oxycodone Hcl Immed Release 5 Mg Tablet) 5 mg PO Q4H PRN PRN Reason: Pain, Moderate(Pain Scale 4-6) Last Admin: 06/29/24 19:29 Dose: 5 mg Pantoprazole Sodium (Pantoprazole Sodium 20 Mg Tablet.Dr) 40 mg PO DAILY@0630 [facility] Last Admin: 06/29/24 06:02 Dose: 40 mg Pregabalin (Pregabalin 100 Mg Capsule) 100 mg PO TID [facility] Last Admin: 06/29/24 20:37 Dose: 100 mg Rivaroxaban (Rivaroxaban 10 Mg Tablet) 10 mg PO DAILY [facility] Last Admin: 06/29/24 08:28 Dose: 10 mg Sodium Chloride (0.9 % Sodium Chloride Flush 3 Ml Syringe) 3 ml IVFLUSH QSHIFT [facility] Last Admin: 06/29/24 20:37 Dose: 3 ml Tamsulosin HCl (Tamsulosin Hcl 0.4 Mg Capsule) 0.8 mg PO DAILY [facility] Last Admin: 06/29/24 08:28 Dose: 0.8 mg Home Medications ?Medication ?Instructions ?Recorded ?Confirmed ?Last Taken ?Type celecoxib 100 mg capsule 100 mg PO BEDTIME 01/09/24 06/28/24 06/27/24 History magnesium 250 mg tablet 250 mg PO DAILY 01/09/24 06/28/24 06/27/24 History furosemide 40 mg tablet 40 mg PO DAILY 06/07/24 06/28/24 06/27/24 History fluticasone fur. 200 mcg-umeclid 1 ea inhalation DAILY 06/28/24 06/28/24 06/27/24 History 62.5 mcg-vilant 25 mcg inhalat.powder (Trelegy Ellipta) oxycodone 5 mg tablet 5 mg PO Q4H PRN pain 06/28/24 06/28/24 Unknown History oxycodone myristate 18 mg capsule 18 mg PO BID 06/28/24 06/28/24 06/27/24 History sprinkle extended release 12hr(DON'T CRUSH) (Xtampza ER) Physical Exam Vital Signs: Vital Signs: Last Vital Signs Temp 98.2 F 06/29/24 19:03 Pulse 72 06/29/24 19:09 Resp 18 06/29/24 19:09 BP 110/53 L 06/29/24 19:03 Pulse Ox 97 06/29/24 19:03 O2 Del Method Nasal Cannula 06/29/24 19:03 O2 Flow Rate 2.0 06/29/24 14:41 Oxygen Flow Rate 2 06/27/24 15:24 BMI result Body Mass Index 31.8 Const: General: cooperative HEENT: Head: Yes normal to inspection Face and sinus: Yes normal facial exam Mouth: Normal oral and palatal mucosa present Teeth and gingiva: dentition normal Eyes: General: appearance normal, both eyes and all related structures Pupils: Equal, round and reactive pupils present Resp: Effort & Inspection: normal respiratory effort Cardio: Rate: regular rate Rhythm: regular rhythm GI: Palpation (GI): Soft to palpation and nontender : General: Yes no CVA tenderness Back/Spine/Pelvis: Back: no CVA tenderness Skin: General skin exam: no rashes or lesions noted Neuro: General: moves all extremities Cranial nerves: Yes Equal, round and reactive pupils present Extrem: Other: 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 reddened foot including right second toe,plus 2 edema Psych: Appearance: grossly normal Results Labs 06/29/24 06:38 06/29/24 06:38 Labs: Short CBC 06/29/24 Range/Units 06:38 WBC 14.1 H (4.8-10.8) X10*3/uL Hgb 11.8 L (14.0-18.0) g/dl Hct 35.9 L (42.0-52.0) % Plt Count 189 (160-400) X10*3/uL BMP 06/29/24 06:38 Sodium 137 Potassium 4.6 Chloride 104 Carbon Dioxide 27 BUN 27 H Creatinine 1.09 Calcium 8.2 L Liver Function 06/29/24 Range/Units 06:38 Total Bilirubin 0.4 (0.0-1.0) mg/dL AST 28 (5-37) U/L ALT 18 (0-40) U/L Alkaline Phosphatase 71 (39-117) U/L Albumin 3.0 L (3.5-5.0) g/dL Microbiology Microbiology Results: Microbiology 06/27/24 16:10 Blood - Venous Blood Culture - Preliminary No growth after 48 hours. 06/27/24 15:39 Blood - Venous Blood Culture - Preliminary No growth after 48 hours. Assessment and Plan (1) Cellulitis of right foot: Status: Acute He has no OM seen on MRI. He has no abscess to drain on MRI. He has no elevated sed rate either. He has CHF,COPD on 2 liters,PAD. Would give po Augmentin and linezolid for total 14 days Follow vascular (2) Aortic stenosis: Status: Acute
[2024-06-30] MEDS: Piperacillin Sodium/Tazobactam 4.5 GM in 0.9 % Sodium Chloride 100 ML IV ×2 (00:10→05:26)
[2024-06-30 03:57] VITALS: BP 172/84; PULSE 93; RESP 18; TEMP 36.4; O2SAT 95
[2024-06-30] MEDS: oxyCODONE HCl Immed Release 5 MG TABLET PO (05:25)
[2024-06-30] MEDS: Pantoprazole Sodium 20 MG TABLET.DR 40 MG PO (05:26)
[2024-06-30 07:27] VITALS: BP 152/70; PULSE 65; RESP 18; TEMP 36.9; O2SAT 100
[2024-06-30 07:30] LABS: Glucose, Whole Blood 148 mg/dL (60-115)
[2024-06-30] MEDS: Linezolid 600 MG TABLET PO (08:01)
[2024-06-30] MEDS: Rivaroxaban 10 MG TABLET PO (08:01)
[2024-06-30] MEDS: Amoxicillin/Potassium Clav 875 MG TABLET PO (08:01)
[2024-06-30] MEDS: Clopidogrel Bisulfate 75 MG TABLET PO (08:02)
[2024-06-30] MEDS: Pregabalin 100 MG CAPSULE PO (08:02)
[2024-06-30] MEDS: Magnesium Oxide 400 MG TABLET PO (08:02)
[2024-06-30] MEDS: lisinopriL 10 MG TABLET PO (08:02)
[2024-06-30] MEDS: Furosemide 40 MG TABLET PO (08:03)
[2024-06-30] MEDS: Atorvastatin Calcium 40 MG TABLET PO (08:03)
[2024-06-30] MEDS: Famotidine 20 MG TABLET PO (08:03)
[2024-06-30] MEDS: Tamsulosin HCL 0.4 MG CAPSULE 0.8 MG PO (08:03)
[2024-06-30] MEDS: oxyCODONE HCl ER 10 MG TAB.ER.12H 20 MG PO (08:04)
[2024-06-30] MEDS: methylPREDNISolone Sod Succ 40 MG/ML VIAL IVPUSH (08:05)
[2024-06-30] MEDS: 0.9 % Sodium Chloride Flush 3 ML SYRINGE IVFLUSH (08:05)
--- NOTE | 2024-06-30 10:43 | HO.VASCPN ---
Subjective Subjective Date of Service: 06/30/24 Interval history: Russell is doing well this morning. He is OOB in the chair. He has been eating, drinking, and sleeping well. He states the pain is better this morning. He is likely being discharged home today. He has no new concerns this morning. Physical Exam Vital Signs: Vital Signs: Last Vital Signs Temp 98.5 F 06/30/24 07:27 Pulse 65 06/30/24 07:27 Resp 18 06/30/24 07:27 BP 152/70 H 06/30/24 07:27 Pulse Ox 100 06/30/24 07:27 O2 Del Method Nasal Cannula 06/30/24 07:27 O2 Flow Rate 2.0 06/30/24 07:27 Oxygen Flow Rate 2 06/27/24 15:24 BMI result Body Mass Index 31.8 Const: General: comfortable and no acute distress Orientation/consciousness: patient oriented x3 HEENT: Ears: hearing grossly normal bilaterally Resp: Effort & Inspection: normal respiratory effort and able to speak in complete sentences Auscultation: clear to auscultation bilaterally Cardio: Rate: regular rate Rhythm: regular rhythm Heart sounds: S1 normal heart sound present and S2 normal heart sound present Bruits: no abdominal aortic bruits, no carotid bruits, no femoral bruits and no renal bruits GI: Palpation (GI): No Abdominal aortic bruit present Neuro: General: patient oriented x3 Cranial nerves: Yes CN's II-XII intact bilaterally Extrem: Other: Right 2nd toe: 2 small wounds on the toe and one around the toenail/nail bed. Toenail thick and curled. Toe is slightly erythematous but not warm to the touch. Dry eschar/scabbing removed easily this morning. Minimal bleeding. Bandage placed over it. Bilateral lower extremities: +1 nonpitting edema noted. Erythematous discoloration noted from the tibial tuberosity to the ankles. Palpable DP pulses. Progress Note: A&P Assessment and plan (1) Cellulitis of right foot: Status: Acute Assessment and Plan: Russell remains stable from a vascular standpoint. We were able to easily remove the dry eschar/scabbing over the smaller wounds, which only resulted in minimal bleeding and superficial wounds. We recommend follow up outpatient in 2w. Wound care can consist of keeping the area clean and dry, and applying a bandage as needed. If there are any questions or concerns, please do not hesitate to reach out to us. Time Spent With Patient Time: Total time managing care of this patient today ____ minutes. Procedures Date of Service Date of Service: 06/30/24 Quality Stroke Does the patient have a stroke diagnosis?: No VTE Prior VTE?: No VTE Risk Level:: Medical - moderate - high VTE Device Contraindication: Treatment Not Indicated VTE Drug Contraindication: N/A - Med Ordered
--- NOTE | 2024-06-30 11:17 | P.DS_ITS ---
DS: Providers Provider Date of Service: 06/30/24 Date of admission: 06/27/24 19:31 Date of discharge: 06/30/24 Primary care physician: Kiana Carrillo MD Consults: 06/27/24 19:31 Consult to Infectious Diseases Routine Consulting Provider: [facility] Reason for consultation: Osteomyelitis right foot Consult to Vascular Surgery Routine Consulting Provider: [facility] Vascular Services Reason for consultation: Osteomyelitis right foot, PAD 06/28/24 16:39 Consult to Wound Care Routine Reason for consultation: diabetic ulcer right 2nd toe DS: Diagnosis Discharge Diagnosis (1) Cellulitis of right foot: Status: Acute DS: Summary Hospital Course Hospital Course: Date of Service: 06/27/24 Attending physician on admission: Dottie Hebert Chief Complaint: dyspnea, redness R foot 79-year-old male with history of paroxysmal atrial fibrillation anticoagulated with Eliquis, peripheral arterial disease, BPH, heart failure reduced ejection fraction, history of type 2 diabetes per patient, COPD with chronic hypoxemic respiratory failure, GERD, hyperlipidemia, chronic low back pain, with history of osteomyelitis right great toe s/p amputation presented to the ED earlier today for evaluation of worsening dyspnea, orthopnea, and swelling. His daughter is at bedside who states that she actually called EMS due to significant erythema of the right foot which was noted this afternoon. He has had ulcerations on the right 2nd and 3rd great toe that have not healed over last few months. There has been no purulent drainage. He has not have a client experience manager at this time. He reports the pain in his foot makes it difficult to ambulate even with his walker. Regarding the respiratory symptoms, he reports these been ongoing for several weeks but worsening over the last few days. He has not needed to increase O2 requirement but has been using albuterol inhaler with increased frequency. He has a chronic cough but denies any change in quality or severity, no increased sputum production. No fevers or chills. Since arrival, vitals have been stable. Remains on 2 L supplemental O2. Blood pressure soft but no hypotension. He has mild leukocytosis of 11.1. Renal function baseline, electrolyte levels normal. Glucose 138. Total bilirubin 1.4, AST 59, ALT 21. BNP 37. Venous duplex of the right lower extremity negative for DVT. Chest x-ray negative for any focal consolidation, edema, effusions. X-ray of the right foot shows soft tissue swelling overlying the forefoot with lucency along the head of the 2nd middle phalanx raising suspicion for developing osteomyelitis. ESR and CRP pending. In the ED has received IV Zosyn. Hospital course: 79-year-old male with history of paroxysmal atrial fibrillation anticoagulated with Eliquis, peripheral arterial disease, BPH, heart failure reduced ejection fraction, history of type 2 diabetes per patient, COPD with chronic hypoxemic respiratory failure, GERD, hyperlipidemia, chronic low back pain, with history of osteomyelitis right great toe s/p amputation admitted for ? osteomyelitis of the right 2nd toe with right lower extremity cellulitis and acute COPD exacerbation 1.Right lower extremity cellulitis, -x-ray foot showed soft tissue swelling overlying the fore foot lucency along the head of the 2nd middle phalanx raises suspicion for developing osteomyelitis, ESR 26 however MRI showed no bone marrow edema to suggest osteomyelitis in the absence of contrast occult osteomyelitis can not be excluded, seen by vascular surgery no surgical intervention recommended Initially treated with IV Zosyn and linezolid subsequently seen by ID she recommend by mouth Augmentin and linezolid for total 14 days as per ID less likely to have osteomyelitis with no elevated sed rate and no abscess to drain on MRI and no osteo on MRI. 2.COPD exacerbation with chronic hypoxemic respiratory failure treated with IV steroids and antibiotics as above with good response, being discharged home on baseline O2 2 L of supplemental oxygen at rest and 4 L at night 3.Paroxysmal atrial fibrillation -acceptable rate control continue Xarelto 4.Type 2 diabetes - stable blood sugar continue diabetic diet and home meds. Time Attestation Discharge Coordination Time (in mins): 40 Quality: Safe Use of Opioids Does Pt have an Active Cancer Diagnosis on the Problem List?: No Quality: Stroke Does the patient have a stroke diagnosis?: No Physical Exam Vital Signs: Vital Signs: Last Vital Signs Temp 98.5 F 06/30/24 07:27 Pulse 65 06/30/24 07:27 Resp 18 06/30/24 07:27 BP 152/70 H 06/30/24 07:27 Pulse Ox 100 06/30/24 07:27 O2 Del Method Nasal Cannula 06/30/24 07:27 O2 Flow Rate 2.0 06/30/24 07:27 Oxygen Flow Rate 2 06/27/24 15:24 BMI result Body Mass Index 31.8 Const: Other: General: AOx3, no acute distress Neck no JVD Resp: Lungs clear , no wheeze,no crackles CVS: regular rhythm GI: +BS, NT, no distention Neuro: non focal Extremities: Right leg s/p great toe amputation, Right 2nd toe 2 small wounds on the toe and one around the toenail/nail bed. no bleeding or discharge noted from the wounds. Psych: Appropriate affect DS: Data Data Completed and Pending Labs on day of discharge: Laboratory Results - last 24 hr 06/29/24 06/29/24 06/29/24 11:05 16:18 20:07 POC Glucose 174 H 203 H 160 H 06/30/24 07:21 POC Glucose 148 H Preliminary micro results at discharge 06/27/24 16:10 Blood Culture - Preliminary Blood - Venous No growth after 48 hours. 06/27/24 15:39 Blood Culture - Preliminary Blood - Venous No growth after 48 hours. Discharge Plan Discharge Anticipated Discharge Date/Time: 06/30/24 11:03 Patient Disposition: Home Health Service Discharge Diagnosis: Right lower extremity cellulitis COPD exacerbation Referrals: [facility]er [Other] - 1 Week Kiana Carrillo MD [Primary Care Provider] - 1 Week Discharge Medications: New linezolid 600 mg Tablet 600 mg PO Q12H Qty: 26 0RF amoxicillin-pot clavulanate 875-125 mg Tablet 1 tab PO Q12H Qty: 26 0RF ipratropium-albuterol 0.5 mg-3 mg(2.5 mg base)/3 mL Solution For Nebulization 3 ml inhalation TID Qty: 180 0RF Continued atorvastatin 40 mg tablet 40 mg PO DAILY Qty: 90 3RF clopidogrel 75 mg tablet 75 mg PO DAILY Qty: 90 3RF famotidine 20 mg tablet 20 mg PO DAILY Qty: 90 3RF pantoprazole 40 mg tablet,delayed release (DR/EC) 40 mg PO DAILY@0630 Qty: 90 3RF pregabalin 100 mg capsule 100 mg PO TID Qty: 270 3RF Xarelto 10 mg tablet 10 mg PO DAILY Qty: 90 3RF Rx Instructions: for 35 days tamsulosin 0.4 mg capsule 0.8 mg PO DAILY Qty: 180 3RF hydroxyzine HCl 25 mg tablet 25 mg PO TID Qty: 270 1RF (DME) Oxygen Home Use Kit See Rx Instructions .Route Qty: 1 0RF Rx Instructions: 2 L during daytime and 4 L at the time of sleep (DME) nebulizer accessories Kit See Rx Instructions .Route Qty: 1 0RF Rx Instructions: As directed albuterol sulfate 90 mcg/actuation HFA aerosol inhaler 2 puff inhalation Q6H PRN (Reason: shortness of breath or wheezing) Qty: 8.5 0RF oxycodone 5 mg tablet 5 mg PO Q4H PRN (Reason: pain) Xtampza ER 18 mg cap,sprinkl,ER12hr(DONT CRUSH) 18 mg PO BID Trelegy Ellipta 200-62.5-25 mcg blister with device 1 ea inhalation DAILY celecoxib 100 mg capsule 100 mg PO BEDTIME magnesium 250 mg tablet 250 mg PO DAILY furosemide 40 mg tablet 40 mg PO DAILY Rx Instructions: extra prn naloxone [Narcan] 4 mg/actuation spray,non-aerosol 4 mg intranasal Q2M Qty: 2 1RF Rx Instructions: spray 1 dose into ONE nostril; alternate nostrils w each dose until help arrives lisinopril 10 mg tablet 10 mg PO DAILY Qty: 90 3RF dexlansoprazole 60 mg capsule,biphase delayed releas 60 mg PO DAILY Qty: 90 3RF (DME) lancets [FreeStyle Lancets] 28 gauge misc See Rx Instructions .Route Qty: 100 3RF Rx Instructions: once daily (DME) FreeStyle Lite Strips Strip See Rx Instructions .Route Qty: 100 3RF Rx Instructions: once daily (DME) blood-glucose meter [FreeStyle Lite Meter] Kit See Rx Instructions .Route Qty: 1 0RF Rx Instructions: As directed triamcinolone acetonide 0.1 % cream 1 appl topical DAILY Qty: 30 0RF Rx Instructions: to rash of the hand (DME) Diabetic shoes See Rx Instructions .Route .MEDSUPPLY Qty: 1 0RF Rx Instructions: As directed Discharge Orders: Discharge Order (Routine); Ordered 06/30/24 Ordered By: Caity Reyes Diet: Advance to usual diet Activity on Discharge: As tolerated Stand Alone Forms: Patient Portal Discharge page Print Language: Czech Activity Restrictions/Additional Instructions: Wound care upon discharge: keep the area clean and dry. Apply bandage (BandAid) daily as needed. Please call Dr. Kearns at [phone] for 2 week follow up Care Plan Goals: Continue all home medications as before Take Augmentin 1 tablet twice daily and Zyvox 1 tablet twice daily for total 2 weeks Health Concerns: COPD/chronic hypoxic respiratory failure continue home oxygen as before Plan of Treatment: Outpatient follow-up with primary care physician Outpatient follow-up with Dr. Kearns call for appointment in 2 weeks Assessment: As above Discharge Date/Time: 06/30/24 14:11
[2024-06-30] MEDS: Albuterol/Iprat 2.5/0.5MG 3 ML AMPUL.NEB INHALE (11:27)
[2024-06-30 11:28] VITALS: PULSE 65; RESP 18; O2SAT 99
[2024-06-30 11:48] LABS: Glucose, Whole Blood 130 mg/dL (60-115)
--- NOTE | 2024-06-30 11:50 | W.MHC.F2F ---
Service Date Service Date: 06/30/24 Encounter Date of encounter: 06/30/24 Reasons for Services Signs and symptoms assessed: Right foot cellulitis right 2nd toe small ulceration plantar surface without purulent discharge. COPD chronic hypoxic respiratory failure Reason for detention: wound care and medication management Homebound: Leaving the home is medically contraindicated at this time without the asist of a device and/or another person due th the listed conditions above and below. Reason homebound: weakness related to hospital stay Certification: Based on the above findings, I certify that this patient is confined to the home and needs intermittent detention care, physical therapy and/or speech therapy, or continues to need occupational therapy. The patient is under my care, and I have initiated the establishment of the plan of care. The patient will be followed by a physician who will periodically review the plan of care. Time Spent With Patient Time: Total time managing care of this patient today ____ minutes.
--- NOTE | 2024-06-30 12:13 | MHC.CM.PN ---
pt dcd home with ns
[2024-06-30 13:37] VITALS: BP 137/63; PULSE 99; RESP 16; TEMP 36.8; O2SAT 96
--- NOTE | 2024-06-30 14:50 | HO.WOUND ---
Wound consult: Initial 79yr old Male admitted to [facility] 06/27/24 see H7P for detailed history. Wound consult placed for Right 2nd toe wound. Chart review completed - seen by vascular services and topical recommendations made. Defer to Vascular Surgery topical orders. Inpatient wound care nurse will not make topical recommendations at this time.
== END 2024-06-30 14:11 | disposition home health service (06) | DRG 603 ==
LOC: HO.ED 17:39 → HO.EDOVER 19:42 → HO.S3 06-28 09:54
PROVIDERS: Family Medicine; Hospitalist; Nurse Practitioner Family; Admitting Provider Physician Assistant; Emergency Provider Internal Medicine; PCP Internal Medicine; Visit Provider Hospitalist
DX: L03.115 Cellulitis of right lower limb (principal); J44.1 Chronic obstructive pulmonary disease with (acute) exacerbation; J96.11 Chronic respiratory failure with hypoxia; M86.171 Other acute osteomyelitis, right ankle and foot; E11.69 Type 2 diabetes mellitus with other specified complication; I48.0 Paroxysmal atrial fibrillation; E11.51 Type 2 diabetes mellitus with diabetic peripheral angiopathy without gangrene; L97.519 Non-pressure chronic ulcer of other part of right foot with unspecified severity; E11.42 Type 2 diabetes mellitus with diabetic polyneuropathy; Z20.822 Contact with and (suspected) exposure to COVID-19; Z99.81 Dependence on supplemental oxygen; Z23 Encounter for immunization; Z79.01 Long term (current) use of anticoagulants; Z79.02 Long term (current) use of antithrombotics/antiplatelets; Z79.899 Other long term (current) drug therapy
CPT/HCPCS: 36415; 71046; 73620; 73718; 80048; 80053; 80202; 82947; 83036; 83605; 83880; 85025; 85652; 86140; 87040; 87633; 90656; 93005; 93926; 93970; 94640; 99285; J2020; J2543; J2919

== ENCOUNTER → 2024-06-27 15:48 | Outpatient (BNV) | payer MEDICARE, MEDICAID, SELFPAY | PROVIDERS: Admitting Provider Physician Assistant; Emergency Provider Internal Medicine; PCP Internal Medicine; Visit Provider Internal Medicine | DX: I45.2 Bifascicular block (principal) | CPT/HCPCS: 93010 ==

== ENCOUNTER → 2024-06-27 15:48 | Outpatient (BNV) | payer MEDICARE, MEDICAID, SELFPAY | PROVIDERS: Emergency Provider Internal Medicine; PCP Internal Medicine; Visit Provider Radiology Diagnostic Radiology | DX: I70.211 Atherosclerosis of native arteries of extremities with intermittent claudication, right leg (principal); R94.2 Abnormal results of pulmonary function studies; M70.871 Other soft tissue disorders related to use, overuse and pressure, right ankle and foot | CPT/HCPCS: 71046; 73620; 93970 ==

== ENCOUNTER 2024-06-27 19:31 | Outpatient (BNV) | payer MEDICARE, MEDICAID, SELFPAY | END 2024-06-28 08:11 | PROVIDERS: Admitting Provider Physician Assistant; Emergency Provider Internal Medicine; PCP Internal Medicine; Visit Provider Radiology Diagnostic Radiology | DX: S98.111A Complete traumatic amputation of right great toe, initial encounter (principal) | CPT/HCPCS: 93926 ==

== ENCOUNTER → 2024-06-27 19:31 | Outpatient (BNV) | payer MEDICARE, MEDICAID, SELFPAY | PROVIDERS: Admitting Provider Physician Assistant; Emergency Provider Internal Medicine; PCP Internal Medicine; Visit Provider Physician Assistant Surgical | DX: M86.9 Osteomyelitis, unspecified (principal) | CPT/HCPCS: 99222; 99232 ==

== ENCOUNTER → 2024-06-27 19:31 | Outpatient (BNV) | payer MEDICARE, MEDICAID, SELFPAY | PROVIDERS: Admitting Provider Physician Assistant; Emergency Provider Internal Medicine; PCP Internal Medicine; Visit Provider Physician Assistant | DX: L03.115 Cellulitis of right lower limb (principal) | CPT/HCPCS: 99223; 99233; 99239; G0180 ==

== ENCOUNTER → 2024-06-27 19:31 | Outpatient (BNV) | payer MEDICARE, MEDICAID, SELFPAY | PROVIDERS: Admitting Provider Physician Assistant; Emergency Provider Internal Medicine; PCP Internal Medicine; Visit Provider Internal Medicine | DX: L03.115 Cellulitis of right lower limb (principal); I35.0 Nonrheumatic aortic (valve) stenosis | CPT/HCPCS: 99222 ==

== ENCOUNTER 2024-07-10 22:21 | Emergency (ER) | payer MEDICARE, MEDICAID, SELFPAY ==
--- NOTE | ~2024-07-10 | XR_ITS ---
CLINICAL HISTORY: g toe R r o bone erosion 3 view right 1st toe Comparison: MR - MR FOOT RT WO CON - 06/27/24 22:42 EDT Findings: No erosive bone lesion identified. No significant soft tissue lucencies to suggest subcutaneous gas. No foreign body. Postsurgical changes of right 1st digit resection. No acute fracture. IMPRESSION: 1. No plain radiographic evidence of osteomyelitis. No erosive bone lesion identified. This document has been electronically signed by: Jan Gonzalez MD on 07/11/2024 02:40:44
--- NOTE | ~2024-07-10 | XR_ITS ---
CLINICAL HISTORY: ?fluid overload EXAM: One view chest x-ray COMPARISON: CR - XR CHEST 2V - 06/27/24 16:48 EDT FINDINGS: Normal cardiac, mediastinal, and hilar contours. Normal heart size. No pleural effusion or pneumothorax. Lungs are clear. No acute bone finding. IMPRESSION: 1. No acute cardiopulmonary process demonstrated. This document has been electronically signed by: Jan Gonzalez MD on 07/11/2024 02:41:02
[2024-07-10 22:35] VITALS: BP 96/68; PULSE 110; O2SAT 95; BMI 28.4
[2024-07-10 22:42] VITALS: BP 96/41; PULSE 102; RESP 14; TEMP 36.7; O2SAT 94
[2024-07-10 22:50] LABS: Basophils Percent Auto 0.2 % (0-2); Eosinophils Percent Auto 0.2 % (0-4); Hematocrit 35.9 % (42.0-52.0); Hemoglobin 12.2 g/dl (14.0-18.0); Imm Gran Abs Auto 0.05 X10*3/uL (0.00-0.03); Imm Gran Pct Auto 0.5 % (0.0-0.4); Lymphocytes Absolute Auto 0.6 X10*3/uL (1.2-4.9); Lymphocytes Percent Auto 5.4 % (20-40); Mean Corpuscular Hemoglobin 29.3 pg (27.0-33.0); Mean Corpuscular Volume 86.3 fL (80.0-98.0); Mean Platelet Volume 9.8 fL (9.4-12.4); Monocytes Absolute Auto 0.2 X10*3/uL (0.1-1.2); Monocytes Percent Auto 2.1 % (2-11); Neutrophils Absolute Auto 9.8 x10*3/uL (2.0-8.3); Neutrophils Percent Auto 91.6 % (45-73); Platelet Count 150 X10*3/uL (160-400); Red Blood Count 4.16 X10*6/uL (4.60-5.80); Red Cell Distribution Width 13.6 % (11.0-16.0); SCAN SMEAR FLAG 1; White Blood Count 10.7 X10*3/uL (4.8-10.8)
--- NOTE | 2024-07-10 22:51 | ECG_ITS ---
Test Reason : swollen legs Blood Pressure : */* mmHG Vent. Rate : 99 BPM Atrial Rate : 99 BPM P-R Int : 112 ms QRS Dur : 166 ms QT Int : 386 ms P-R-T Axes : * -58 10 degrees QTcB Int : 495 ms Normal sinus rhythm Right bundle branch block Left anterior fascicular block Bifascicular block Septal infarct , age undetermined Abnormal ECG When compared with ECG of 27-Jun-2024 15:58, Sinus rhythm has replaced Wide QRS rhythm Referred By: Generic ED Physician Electronically Signed By: Rohan Recinos
[2024-07-10 22:52] LABS: MANUAL DIFF FLAG SCAN
[2024-07-10 22:55] LABS: INTERNATIONAL NORM RATIO 3.7 (0.9-1.1); Prothrombin Time 43.7 SEC (10.9-12.4)
[2024-07-10 23:05] LABS: Alanine Aminotransferase 25 U/L (0-40); Albumin Level 3.3 g/dL (3.5-5.0); Alkaline Phosphatase 90 U/L (39-117); Anion Gap 17 (12-20); Aspartate Amino Transferase 32 U/L (5-37); Bilirubin Total 0.5 mg/dL (0.0-1.0); Blood Urea Nitrogen 25 mg/dL (9-16); Calcium 8.3 mg/dL (8.4-10.2); Carbon Dioxide 24 mmol/L (22-29); Chloride 103 mmol/L (96-108); Creatinine Clr Calc Pharmacy 44.5; Estimated Glomerular Filt Rate 54; Glucose Random 151 mg/dL (60-115); Potassium 4.4 mmol/L (3.3-5.1); Sodium 140 mmol/L (135-145); Total Protein 6.3 g/dL (6.5-8.0)
[2024-07-10 23:09] LABS: Troponin-I High Sensitivity 5.8 ng/L (<3.5-35.0)
[2024-07-10 23:10] LABS: SLIDE REVIEW VERIFIED
[2024-07-10 23:17] LABS: B Type Natriuretic Peptide 30 pg/mL (<100)
[2024-07-11 00:04] VITALS: BP 95/46; PULSE 80; RESP 16; TEMP 36.7; O2SAT 97
--- NOTE | 2024-07-11 00:39 | ED.GENADULT ---
HPI - General Adult General Chief complaint: Extremity Problem Stated complaint: swelling in both feet. hx chf Time Seen by Provider: 07/11/24 00:06 Source: patient Mode of arrival: ambulatory Limitations: no limitations History of Present Illness ED Provider: HPI narrative: 79-year-old male with history of paroxysmal atrial fibrillation anticoagulated with Eliquis, peripheral arterial disease, BPH, heart failure reduced ejection fraction, history of type 2 diabetes per patient, COPD with chronic hypoxemic respiratory failure, GERD, hyperlipidemia, chronic low back pain, with history of osteomyelitis right great toe s/p amputation presented to the ED earlier today for evaluation of worsening dyspnea, orthopnea, and swelling both lower extremities, patient was just discharged on 06/30 for similar presentation no osteomyelitis was noticed and discharged on Augmentin and linezolid for 14 days comes here as for last few days swelling is getting worse Related Data Home Medications ?Medication ?Instructions ?Recorded ?Confirmed celecoxib 100 mg capsule 100 mg PO BEDTIME 01/09/24 07/01/24 magnesium 250 mg tablet 250 mg PO DAILY 01/09/24 07/01/24 furosemide 40 mg tablet 40 mg PO DAILY 06/07/24 07/01/24 fluticasone fur. 200 mcg-umeclid 1 ea inhalation DAILY 06/28/24 07/01/24 62.5 mcg-vilant 25 mcg inhalat.powder (Trelegy Ellipta) oxycodone 5 mg tablet 5 mg PO Q4H PRN pain 06/28/24 07/01/24 oxycodone myristate 18 mg capsule 18 mg PO BID 06/28/24 07/01/24 sprinkle extended release 12hr(DON'T CRUSH) (Xtampza ER) Previous Rx's ?Medication ?Instructions ?Recorded Oxygen Home Use #1 ea 12/31/23 albuterol sulfate 90 mcg/actuation 2 puff inhalation Q6H PRN 12/31/23 aerosol inhaler shortness of breath or wheezing #8.5 grams nebulizer accessories #1 ea 12/31/23 atorvastatin 40 mg tablet 40 mg PO DAILY #90 tabs 04/20/24 clopidogrel 75 mg tablet 75 mg PO DAILY #90 tabs 04/20/24 famotidine 20 mg tablet 20 mg PO DAILY #90 tabs 04/20/24 pantoprazole 40 mg tablet,delayed 40 mg PO DAILY@0630 #90 tabs 04/20/24 release pregabalin 100 mg capsule 100 mg PO TID #270 caps 04/20/24 rivaroxaban 10 mg tablet (Xarelto) 10 mg PO DAILY #90 tabs 04/20/24 tamsulosin 0.4 mg capsule 0.8 mg (2 x 0.4 mg) PO DAILY #180 04/20/24 caps FreeStyle Lancets 28 gauge #100 ea 04/26/24 (lancets) FreeStyle Lite Meter #1 ea 04/26/24 (blood-glucose meter) blood sugar diagnostic (FreeStyle #100 ea 04/26/24 Lite Strips) dexlansoprazole 60 mg 60 mg PO DAILY #90 caps 04/26/24 capsule,biphase delayed release lisinopril 10 mg tablet 10 mg PO DAILY #90 tabs 04/26/24 naloxone 4 mg/actuation nasal 4 mg intranasal Q2M #2 ea 06/01/24 spray (Narcan) Diabetic shoes #1 ea 06/04/24 triamcinolone acetonide 0.1 % 1 appl topical DAILY #30 grams 06/04/24 topical cream hydroxyzine HCl 25 mg tablet 25 mg PO TID for itch #270 tabs 06/28/24 amoxicillin 875 mg-potassium 1 tab PO Q12H #26 tabs 06/30/24 clavulanate 125 mg tablet ipratropium 0.5 mg-albuterol 3 mg 3 ml inhalation TID #180 mL 06/30/24 (2.5 mg base)/3 mL nebulization soln linezolid 600 mg tablet 600 mg PO Q12H #26 tabs 06/30/24 furosemide 20 mg tablet 20 mg PO .at 2 pm #30 tabs 07/11/24 Allergies Allergy/AdvReac Type Severity Reaction Status Date / Time lemon Allergy Anaphylaxis Verified 07/10/24 22:40 morphine Allergy Anaphylaxis Verified 07/10/24 22:40 vancomycin Allergy Chest Pain Verified 07/10/24 22:40 Review of Systems Review of Systems: Yes all other systems are reviewed and are negative [facility] Past Medical History Medical History COPD (chronic obstructive pulmonary disease) GERD (gastroesophageal reflux disease) Hyperlipidemia Hypertension BPH (benign prostatic hyperplasia) CHF (congestive heart failure) Infrarenal abdominal aortic aneurysm (AAA) without rupture Peripheral vascular disease DDD (degenerative disc disease), lumbosacral Nicotine dependence, cigarettes, uncomplicated Nocturnal hypoxemia PAD (peripheral artery disease) Paroxysmal atrial fibrillation Social History Social History Household Members: Other Household Members Other:: niece and family live upstairs Housing: House Do you presently have visiting nurse or other home services: No Patient Tobacco Use Status: Current everyday Tobacco user Tobacco use type: Cigarette Cigarettes Per Day: 1 Years Smoked: 50 plus e-Cigarette/Vaping Use: Former Use Second Hand Smoke Exposure: No Advance Directives Date on File: 07/01/24 service: No Current occupational status: retired Cognitive needs: No Hearing needs: Yes Vision needs: Yes Physical Exam ED Vital Signs: Vital Signs - 24 hr 07/10/24 22:42 07/11/24 00:04 07/11/24 04:06 Temperature 98.0 F 98.1 F 98 F Pulse Rate 102 H 80 80 Respiratory Rate 14 16 16 Blood Pressure 96/41 L 95/46 L 98/56 L Pulse Oximetry 94 97 98 Oxygen Delivery Method Room Air Room Air Nasal Cannula BMI result Body Mass Index 28.4 Appearance: Alert. Oriented X3. No acute distress. Eyes: PERRLA, No Nystagmus ENT: Pharynx normal. Oral Mucosa moist Neck: Normal inspection. Neck supple. CVS: Normal heart rate and rhythm. Pulses normal. Respiratory: No respiratory distress. Equal air entry bilateral, no wheezing/rales/rhonchi Abdomen: Soft and nontender. Bowel sounds are present, no mass palpable, no CVA tenderness Skin: Skin warm and dry. Normal skin color. Normal skin turgor. Extremities:3++ lower extremity edema. No calf tenderness right great toe with dry gangrene of the toe Neuro: Oriented X 3. No motor deficit. No sensory deficit.No cerebellar signs , cranial nerves II-XII intact Medical Decision Making Medical Decision Making MDM Narrative: Patient with chronic dependent leg edema with dry gangrene of right great toe already on linezolid and augmentin x-ray without any signs of bony erosion/osteomyelitis labs are stable no signs of CHF patient is already taking 40 mg of furosemide in a.m. will add 20 mmg in the afternoon and advised to continue same medication and follow up with PCP keep the legs elevated Differential Diagnosis Differential Diagnoses: The differential diagnosis associated with the presentation includes CHF/dependent edema/osteomyelitis Lab Data MDM Lab Attestation statement: I reviewed the patient's lab results. 07/10/24 22:45 07/10/24 22:45 Labs: Lab Results 07/10/24 Range/Units 22:45 WBC 10.7 (4.8-10.8) X10*3/uL RBC 4.16 L (4.60-5.80) X10*6/uL Hgb 12.2 L (14.0-18.0) g/dl Hct 35.9 L (42.0-52.0) % MCV 86.3 (80.0-98.0) fL MCH 29.3 (27.0-33.0) pg MCHC 34.0 (31.0-36.0) g/dl RDW 13.6 (11.0-16.0) % Plt Count 150 L (160-400) X10*3/uL MPV 9.8 (9.4-12.4) fL Immature Gran % (Auto) 0.5 H (0.0-0.4) % Neut % (Auto) 91.6 H (45-73) % Lymph % (Auto) 5.4 L (20-40) % [place] % (Auto) 2.1 (2-11) % Eos % (Auto) 0.2 (0-4) % Baso % (Auto) 0.2 (0-2) % Lymph # (Auto) 0.6 L (1.2-4.9) X10*3/uL [place] # (Auto) 0.2 (0.1-1.2) X10*3/uL Eos # (Auto) 0.0 (0.0-0.4) X10*3/uL Baso # (Auto) 0.0 (0.0-0.2) X10*3/uL Abs Immat Gran (auto) 0.05 H (0.00-0.03) X10*3/uL Absolute Neuts (auto) 9.8 H (2.0-8.3) x10*3/uL Absolute Nucleated RBC 0.000 (0.0-0.012) X10*3/uL Nucleated RBC % (auto) 0.0 (0.0-0.2) /100WBC Smear Tech's Comments VERIFIED PT 43.7 H D (10.9-12.4) SEC INR 3.7 H D (0.9-1.1) Sodium 140 (135-145) mmol/L Potassium 4.4 (3.3-5.1) mmol/L Chloride 103 (96-108) mmol/L Carbon Dioxide 24 (22-29) mmol/L Anion Gap 17 (12-20) BUN 25 H (9-16) mg/dL Creatinine 1.29 (0.5-1.4) mg/dL Estim Creat Clear Calc 44.5 Estimated GFR 54 Random Glucose 151 H (60-115) mg/dL Calcium 8.3 L (8.4-10.2) mg/dL Total Bilirubin 0.5 (0.0-1.0) mg/dL AST 32 (5-37) U/L ALT 25 (0-40) U/L Alkaline Phosphatase 90 (39-117) U/L Troponin I High Sens 5.8 D (<3.5-35.0) ng/L B-Natriuretic Peptide 30 (<100) pg/mL Total Protein 6.3 L (6.5-8.0) g/dL Albumin 3.3 L (3.5-5.0) g/dL Independent Interpretation I performed an independent interpretation of an: Plain X-Ray Radiology Impression Discussion of test interpretation with radiology: I have reviewed the radiologist's reading. Discharge Plan Discharge Clinical Impression: Leg edema Patient Disposition: Home, Self-Care Instructions: Leg Edema (ED) Additional Instructions: Continue take your medications and furosemide Take extra furosemide 20 mg in the afternoon for increased leg swelling Follow up with your PCP Prescriptions: New furosemide 20 mg tablet 20 mg PO .at 2 pm Qty: 30 0RF No Action atorvastatin 40 mg tablet 40 mg PO DAILY Qty: 90 3RF clopidogrel 75 mg tablet 75 mg PO DAILY Qty: 90 3RF famotidine 20 mg tablet 20 mg PO DAILY Qty: 90 3RF pantoprazole 40 mg tablet,delayed release (DR/EC) 40 mg PO DAILY@0630 Qty: 90 3RF pregabalin 100 mg capsule 100 mg PO TID Qty: 270 3RF Xarelto 10 mg tablet 10 mg PO DAILY Qty: 90 3RF Rx Instructions: for 35 days tamsulosin 0.4 mg capsule 0.8 mg PO DAILY Qty: 180 3RF hydroxyzine HCl 25 mg tablet 25 mg PO TID Qty: 270 1RF (DME) Oxygen Home Use Kit See Rx Instructions .Route Qty: 1 0RF Rx Instructions: 2 L during daytime and 4 L at the time of sleep (DME) nebulizer accessories Kit See Rx Instructions .Route Qty: 1 0RF Rx Instructions: As directed albuterol sulfate 90 mcg/actuation HFA aerosol inhaler 2 puff inhalation Q6H PRN (Reason: shortness of breath or wheezing) Qty: 8.5 0RF oxycodone 5 mg tablet 5 mg PO Q4H PRN (Reason: pain) Xtampza ER 18 mg cap,sprinkl,ER12hr(DONT CRUSH) 18 mg PO BID Trelegy Ellipta 200-62.5-25 mcg blister with device 1 ea inhalation DAILY linezolid 600 mg Tablet 600 mg PO Q12H Qty: 26 0RF amoxicillin-pot clavulanate 875-125 mg Tablet 1 tab PO Q12H Qty: 26 0RF ipratropium-albuterol 0.5 mg-3 mg(2.5 mg base)/3 mL Solution For Nebulization 3 ml inhalation TID Qty: 180 0RF celecoxib 100 mg capsule 100 mg PO BEDTIME magnesium 250 mg tablet 250 mg PO DAILY furosemide 40 mg tablet 40 mg PO DAILY Rx Instructions: extra prn naloxone [Narcan] 4 mg/actuation spray,non-aerosol 4 mg intranasal Q2M Qty: 2 1RF Rx Instructions: spray 1 dose into ONE nostril; alternate nostrils w each dose until help arrives lisinopril 10 mg tablet 10 mg PO DAILY Qty: 90 3RF dexlansoprazole 60 mg capsule,biphase delayed releas 60 mg PO DAILY Qty: 90 3RF (DME) lancets [FreeStyle Lancets] 28 gauge misc See Rx Instructions .Route Qty: 100 3RF Rx Instructions: once daily (DME) FreeStyle Lite Strips Strip See Rx Instructions .Route Qty: 100 3RF Rx Instructions: once daily (DME) blood-glucose meter [FreeStyle Lite Meter] Kit See Rx Instructions .Route Qty: 1 0RF Rx Instructions: As directed triamcinolone acetonide 0.1 % cream 1 appl topical DAILY Qty: 30 0RF Rx Instructions: to rash of the hand (DME) Diabetic shoes See Rx Instructions .Route .MEDSUPPLY Qty: 1 0RF Rx Instructions: As directed Interventions: ED Discharge Assessment Last Done: 07/11/24 04:06 Discharge Date/Time: 07/11/24 04:13 Print Language: Romanian
[2024-07-11 04:06] VITALS: BP 98/56; PULSE 80; RESP 16; TEMP 36.6; O2SAT 98
== END 2024-07-11 04:13 | disposition home or self-care (01) ==
PROVIDERS: Emergency Provider Internal Medicine; PCP Internal Medicine
DX: R60.0 Localized edema (principal); I48.91 Unspecified atrial fibrillation; R94.31 Abnormal electrocardiogram [ECG] [EKG]; E11.9 Type 2 diabetes mellitus without complications; R06.02 Shortness of breath; F17.210 Nicotine dependence, cigarettes, uncomplicated; Z79.01 Long term (current) use of anticoagulants; Z79.899 Other long term (current) drug therapy
CPT/HCPCS: 36415; 71045; 73660; 80053; 83880; 84484; 85025; 85610; 93005; 99283; 99284

== ENCOUNTER → 2024-07-10 22:51 | Outpatient (BNV) | payer MEDICARE, MEDICAID, SELFPAY | PROVIDERS: Emergency Provider Internal Medicine; PCP Internal Medicine; Visit Provider Internal Medicine Cardiovascular Disease | DX: I45.2 Bifascicular block (principal) | CPT/HCPCS: 93010 ==

== ENCOUNTER → 2024-07-11 01:13 | Outpatient (BNV) | payer MEDICARE, MEDICAID, SELFPAY | PROVIDERS: Emergency Provider Internal Medicine; PCP Internal Medicine; Visit Provider Radiology Diagnostic Radiology | DX: R22.43 Localized swelling, mass and lump, lower limb, bilateral (principal); T87.89 Other complications of amputation stump; Z89.411 Acquired absence of right great toe | CPT/HCPCS: 71045; 73660 ==

== ENCOUNTER → 2024-07-27 23:59 | Outpatient (BNV) | payer MEDICARE, MEDICAID, SELFPAY | PROVIDERS: PCP Internal Medicine; Visit Provider Internal Medicine | DX: E11.59 Type 2 diabetes mellitus with other circulatory complications (principal); M86.171 Other acute osteomyelitis, right ankle and foot | CPT/HCPCS: G0180 ==

== ENCOUNTER 2024-08-17 15:59 | Outpatient (AMB) | payer MEDICARE, MEDICAID, SELFPAY ==
--- NOTE | 2024-08-17 16:05 | MHC.PC.OV ---
Vital Signs 08/17/24 16:07 Height 5 ft 5 in BMI Reason not done Patient refused/unable BP 134/70 Blood Pressure Location Rt brachial Position Sitting Respiration 16 Pulse 74 Pulse Source Pulse Oximeter Pulse Oximetry (%) 100 Oxygen Delivery Method Room Air Intake Visit Reasons: hos (need to get new bed) Intake Note: Hospital follow up Network Pricing Consultant Required: No Allergies lemon Allergy (Verified 08/17/24 16:06) Anaphylaxis morphine Allergy (Verified 08/17/24 16:06) Anaphylaxis vancomycin Allergy (Verified 08/17/24 16:06) Chest Pain Medication List - Last Reconciled 08/18/24 by Kiana Carrillo MD albuterol sulfate 90 mcg/actuation 2 puffs inhalation Q6H PRN atorvastatin 40 mg PO DAILY blood sugar diagnostic (FreeStyle Lite Strips) once daily celecoxib 100 mg PO BEDTIME cephalexin 500 mg PO QID [Chucks disposable under pads As directed] clopidogrel 75 mg PO DAILY [COMMODE daily/continuous] dexlansoprazole 60 mg PO DAILY [Diabetic shoes As directed] famotidine 20 mg PO DAILY zbkybrylavp-njlihvkzz-ftnniysc 200-62.5-25 mcg (Trelegy Ellipta) 1 ea inhalation DAILY FreeStyle Lancets (lancets) once daily NS FreeStyle Lite Meter (blood-glucose meter) As directed NS furosemide 40 mg PO DAILY [Hospital Bed Ht- , Wt- 229] ipratropium-albuterol 0.5 mg-3 mg(2.5 mg base)/3 mL 3 mL inhalation TID linezolid 600 mg PO Q12H lisinopril 5 mg PO DAILY naloxone 4 mg/actuation (Narcan) 4 mg intranasal Q2M nebulizer accessories As directed oxycodone 10 mg PO Q4H PRN Oxygen Home Use 2 L during daytime and 4 L at the time of sleep pantoprazole 40 mg PO DAILY@0630 pregabalin 100 mg PO TID rivaroxaban (Xarelto) 10 mg PO DAILY tamsulosin 0.8 mg (2 x 0.4 mg) PO DAILY [[place]iet seat risers Ht- . Wt 229] triamcinolone acetonide 0.1% 1 appl topical DAILY Xtampza ER (oxycodone myristate) 18 mg PO BID NS Xtampza ER (oxycodone myristate) 27 mg PO BID NS Tobacco use date assessed: 08/17/24 Fall risk assessment: 2 + Falls in past year (3) Last assessed Fall Risk: 08/17/24 Dental Screening Dental Screen Date: 08/17/24 Did you have a dental visit in the last 12 months?: No Did you have a dental problem in the last 6 months where you did not have access to dental care?: Yes Was dental information given to patient?: Patient declined HPI HPI Comments History of Present Illness Details The patient is a 79 year old male with a past medical history of type 2 diabetes, CAD, CHF, COPD on 2 L home , chronic back pain presenting for hospital follow up Patient was hospitalized from August 08-August 09. Presented after falling at home-tripped on carpeting, UA suggestive of UTI. Given keflex x 5 days. MRI c spine negative for acute, CT tspine with fracture of a T11 osteophyte, CT lspine without acute fracture, CT pelvis negative for hip fracture. Advanced DDD thoracolumbar spine. Patient is doing ok. He continues to have unsteadiness, generalized weakness most of which he attributes to arthritis and severe chronic pain. He has VNA in the home, has been assessed and recommendation for hospital bed, commode have been made. His mobility is poor. Supportive family COPD/BUTCH: Previously on . On trelegy. Following with pulm. CV: CHF, h/o afib, PAD, ?h/o CAD, ?h/o DVT. Following with cardiology. Echo LVEF 60 65% with moderate asymmetric septal hypertrophy with impaired relaxation filling pattern without elevated filling pressures with wjhv-gv-dzlbxutt aortic stenosis and mildly dilated ascending aorta. Also has iiwf-xi-ezbjycrs infrarenal abdominal aortic aneurysm at 4 cm being followed by vascular surgery. He was history of peripheral vascular disease had stents put in many years ago in [place] due to vascular insufficiency, being followed by vascular surgery again and has mild disease based on his IZABELA. He is currently on chronic anticoagulation with Xarelto because of blood clots and currently on 10 mg daily maintenance dose for usually venous thromboembolic disease. He is also on clopidogrel therapy. Has chronic toe/foot wounds, sacral wound-following vascular and wound. History of chronic pain-lumbar, neck, hip. legs. Recent imaging as above. Says past medications have included methadone, oxycodone, vicodin then on tramadol, lyrica, flexeril-was poorly controlled. He missed appt with pain management but plans to follow up. Started xtampza and short acting oxycodone for pain-improving but still inadequate pain relief stopping him from being more mobile. Continues flexeril, lyrica Hospitalized end of February for pneumonia, COPD exacerbation. Has had appropriate follow up with pulmonary. Echo ordered given history of CHF, persistent shortness of breath. Cardiology appt pending Hospitalized 02/26-03/02/24 at [facility]. presented to the ER with right foot swelling, redness and pain for 2 days. In ED received vancomycin. Had feels that arms and chest were on fire. Got tightness and heaviness in the chest. Became hypotensive to 62/36. Vanc stopped. xray foot without evidence of osteomyelitis. Went into afib. Got IVF, zosyn, doxyccyline. Continued on IV doxycycline, IV steroids and Lasix with good response. DCd on additional po 5 days of doxycycline ROS see HPI PHYSICAL EXAM: GENERAL: Alert and oriented x 3. NAD EYES: EOMI. Anicteric. HENT: Moist mucous membranes. No scleral icterus. No cervical lymphadenopathy. LUNGS: Clear to auscultation bilaterally. CARDIOVASCULAR: Regular rate and rhythm. No JVD. ABDOMEN: Soft, non-tender +bs EXTREMITIES: Bilateral chronic distal peripheral vascular changes SKIN: Patch of confluent dishydrotic eczema on the dorsal hand NEUROLOGIC: No focal neurological deficits. CN II-XII grossly intact PSYCHIATRIC: Cooperative. Appropriate mood and affect REPLACED BY [facility] Medical History COPD (chronic obstructive pulmonary disease) GERD (gastroesophageal reflux disease) Hyperlipidemia Hypertension BPH (benign prostatic hyperplasia) CHF (congestive heart failure) Infrarenal abdominal aortic aneurysm (AAA) without rupture Peripheral vascular disease DDD (degenerative disc disease), lumbosacral Nicotine dependence, cigarettes, uncomplicated Nocturnal hypoxemia PAD (peripheral artery disease) Paroxysmal atrial fibrillation Social History Household Members: Other Household Members Other:: niece and family live upstairs Housing: House Do you presently have visiting nurse or other home services: No Alcohol intake: current Patient Tobacco Use Status: Current everyday Tobacco user Tobacco use type: Cigarette Cigarettes Per Day: 1 Years Smoked: 50 plus e-Cigarette/Vaping Use: Former Use Second Hand Smoke Exposure: No Advance Directives Date on File: 07/01/24 service: No Current occupational status: retired Cognitive needs: No Hearing needs: Yes Vision needs: Yes Questionnaire Thrive Questionnaire Date Thrive assessed: 01/09/24 I am a: Patient What is your living situation today?: I have a steady place to live Within the past 12 months, did the food you bought not last and you didn't have the money to get more?: Sometimes True Within the past 12 months, did you worry whether your food would run out before you got money to buy more?: Sometimes True Do you have trouble paying for medicines?: Yes Do you have trouble getting transportation to medical appointments?: Yes Do you have trouble paying your heating and electricity bill?: Yes Do you have trouble taking care of your child, family member or friend?: Yes Do you have trouble with day-to-day activities such as bathing, preparing meals, shopping, managing finances, etc.?: Yes Are you currently unemployed and looking for a job?: No Are you interested in more education?: No Currently or been in a relationship where the following occur: I choose not to answer THRIVE Score: 4 AUDIT C Alcohol Use Questionnaire (AUDIT-C) 1. How often do you have a drink containing alcohol?: Never 3. How often do you have six or more drinks on one occasion?: Never Total Score: 0 ANTONIA-7 AMB Questionnaire ANTONIA-7 Date ANTONIA - 7 assessed: 01/09/24 Source: Developed by Drs. Russell Crouch, Tania Raya, Grhaam Luna and colleagues, with an educational jordan from [employer]. Physical exam (Primary Care) Vital Signs: Last Vital Signs Pulse 74 08/17/24 16:07 Resp 16 08/17/24 16:07 BP 134/70 08/17/24 16:07 Pulse Ox 100 08/17/24 16:07 Oxygen Delivery Method Room Air 08/17/24 16:07 Tobacco/Smoking Status: Tobacco use Status Tobacco use date assessed 08/17/24 08/17/24 16:16 Patient Tobacco Use Status Current everyday Tobacco 08/17/24 16:19 Tobacco use type Cigarette 08/17/24 16:19 e-Cigarette/Vaping Use Former Use 08/17/24 16:19 Thrive Assessment: Date of Thrive Assessment Date Thrive assessed 01/09/24 08/17/24 16:16 Currently or been in a relationship where the following occur: I choose not to answer Coding Level of Care Code Est Pt Level 5 (27977) Diagnoses Hospital discharge follow-up Z09 Generalized weakness R53.1 Frequent falls R29.6 Other chronic pain G89.29 Chronic pain type: other chronic pain Time Spent (min) 52 Assessment & Plan Assessment & Plan (1) Hospital discharge follow-up: Code(s): Z09 - Encounter for follow-up examination after completed treatment for conditions other than malignant neoplasm Category: Medical (2) Generalized weakness: Code(s): R53.1 - Weakness Category: Medical (3) Frequent falls: Code(s): R29.6 - Repeated falls Category: Medical (4) Chronic pain: Code(s): G89.29 - Other chronic pain Category: Medical Qualifiers: Chronic pain type: other chronic pain Qualified Code(s): G89.29 - Other chronic pain Plan 79 year old male presenting for hospital follow up Hospitalization reviewed. Imaging reviewed, medications reconciled Chronic pain limiting mobility. Significant DDD, OA. Will increase his medications-both the xtampza and oxycodone. Advised of potential of addiction, sedation etc. He has narcan at home. He has been advised to call pain management for follow up Needs DME and continued VNA at home. Orders provided Medications: New [COMMODE] daily/continuous 1 ea 0RF I73.9 - Peripheral vascular disease, unspecified, M86.9 - Osteomyelitis, unspecified, R29.6 - Repeated falls, R53.1 - Weakness Xtampza ER (oxycodone myristate) must administer with a meal/food; Partial Fill upon patient request. 27 mg PO BID 56 caps 0RF NS [COMMODE] daily/continuous 1 ea 0RF I73.9 - Peripheral vascular disease, unspecified, M86.9 - Osteomyelitis, unspecified, R29.6 - Repeated falls, R53.1 - Weakness oxycodone Partial Fill upon patient request. 10 mg PO Q4H PRN 168 tabs 0RF pain Discontinued oxycodone partial fill upon patient request Discontinued Reason: Doctor's Order 5 mg PO Q4H PRN 168 tabs 0RF pain G89.29 - Other chronic pain, M51.372 - Other intervertebral disc degeneration, lumbosacral region with discogenic back pain and lower extremity pain
[2024-08-17 16:07] VITALS: BP 134/70; PULSE 74; RESP 16; O2SAT 100
--- OUTSIDE RECORDS SUMMARY | 2024-08-17 16:43 | XMS_ITS | Patient Health Record ---
Author Organization [facility] la[facility] CallManuelito Address [address] [place] [address] Care Team Providers Care Cherry Sorter Name Role Phone Kiana Mckenna MD Primary Care Provider Raul Romero Unavailable [phone] Allergies Allergen (clinical drug ingredient) Drug/Non Drug Allergy documented on EMR Reaction Allergy Type Onset Date Status ibuprofen Advil Throw up Drug Allergy Active Aleve Throw up Drug Allergy Active Motrin Throw up Drug Allergy Active Reason For Referral No Information Medications Medication SIG (Take, Route, Frequency, Duration) Notes Start Date End Date Status Furosemide 20 MG Oral for 30 Days Active Amoxicillin-Pot Clavulanate 875-125 MG Oral for 13 Days Active Ipratropium-Albuterol 0.5-2.5 (3) MG/3ML Inhalation for 20 Days Active Linezolid 600 MG TAKE 1 TABLET BY IFRAH TH EVERY 12 HOURS Oral for 13 Days Active Cyclobenzaprine HCl 10 MG Oral for 30 Days Active Trelegy Ellipta 200-62.5-25 MCG/ACT USE 1 INHALATION BY MOUTH DIRECTED DAILY Inhalation for 30 Days Active Pregabalin 100 MG TAKE 1 CAPSULE BY MO UTH 3 TIMES A DAY Oral for 30 Days Active oxyCODONE HCl 5 MG Oral for 28 Days Active Famotidine 20 MG TAKE 1 TABLET BY IFRAH TH DAILY Oral for 90 Days Active Pantoprazole Sodium 40 MG TAKE 1 TABLET BY MOUTH DAILY AT 630 Oral for 90 Days Active Clopidogrel Bisulfate 75 MG TAKE 1 TABLE T BY MOUTH DAILY Oral for 30 Days Active Nystatin 121500 UNIT/GM External for 30 Days Active Naloxone HCl 4 MG/0.1ML PLEASE SEE ATTAC HED FOR DETAILED DIRECTIONS Nasal for 30 Days Active Xtampza ER 18 MG Oral for 28 Days Active Lisinopril 10 MG Oral for 90 Days Active Nystatin 498957 UNIT/GM External for 7 Days Active Tamsulosin HCl 0.4 MG Oral for 90 Days Active predniSONE 10 MG PLEASE SEE ATTACHED FOR DETAILED DIRECTIONS Oral for 15 Days Active Triamcinolone Acetonide 0.1 % USE 1 APPLICATION TOPICALLY DAILY TO RASH OF THE HAND External for 14 Days Active Xarelto 10 MG Oral for 30 Days Active Magnesium 250 MG 1 tablet with a meal Orally Once a day 07/16/2024 Active hydrOXYzine HCl 25 MG TAKE 1 TABLET BY M OUT THREE TIMES A DAY FOR ITCH Oral for 90 Days Active Atorvastatin Calcium 40 MG Oral for 30 Days Active Celecoxib 100 MG Oral for 30 Days Active Dexlansoprazole 60 MG Oral for 30 Days Active Social History Tobacco Use: Social History Observation Description Date Details (start date - stop date) Current Smoker 07/02/2004 - NA Tobacco use other than smoking: Question Answer Notes Are you an other tobacco user? No Tobacco Control (Standard) Question Answer Notes Tobacco use: Current smoker When did you start smoking? 07/02/2004 How often do you smoke cigarettes? Every day How many cigarettes a day do you smoke? 5 or les s How soon after you wake up d o you smoke your first cigarette? 6-30 minutes Are you interested in quitting? Ready to quit Additional Findings: Tobacco user Modera te cigarette smoker (10-19 cigs/day) AUDIT-C (Standard) Question Answer Notes Did you have a drink containing alcohol in the p ast year? No Points 0 Interpretation Negative Problems Problem Type SNOMED Code ICD Code Onset Dates Problem Status W/U Status Risk Notes Problem Acquired hammer toe of right foot (1067766390276205) Other hammer toe(s) (acquired), right foot (M20.41) Active confirmed Problem Acquired hammer toe of left foot (0373800956650997) Other hammer toe(s) (acquired), left foot (M20.42) Active confirmed Problem Bilateral atherosclerosis of arteries of lower limbs (disorder) (16190679131099123 ) Atherosclerosis of lytton artery of both lower extremities, with unspecified presence of clinical manifestation (I70.203) Active confirmed Q7(A), Q8(2B), Q9(1B,2 C) Problem Localized, primary osteoarthritis of the ankle and/or foot (531183038) Arthritis of joint of lesser toe, left (M19.072) Active confirmed Problem Localized, primary osteoarthritis of the ankle and/or foot (714762117) Arthritis of joint of lesser toe, right (M19.071) Active confirmed Vital Signs Blood pressure diastolic 65 mm Hg 07/23/2024 Height 5 ft 11inch in 07/23/2024 Blood pressure systolic 130 mm Hg 07/23/2024 Weight 220 lbs 07/23/2024 BMI 30.68 kg/m2 07/23/2024 Procedures Procedure Date Ordered Date Performed Result Body Sit e 03040-[id number] NAIL, 6 OR MORE 07/23/2024 N/A [id number] SKIN LESIONS, OVER 4 07/23/2024 N/A Encounters Encounter Location Date Provider Diagnosis [facility] [address] [address] 07/23/2024 Raul Tavera Atherosclerosis of lytton artery of both lower extremities, with unspecified presence of clinical manifestation I70.203 ; Tinea unguium B35.1 ; Pain in right toe(s) M79.674 ; Pain in left toe(s) M79.675 ; Other hammer toe(s) (acquired), right foot M20.41 ; Arthritis of joint of lesser toe, right M19.071 ; Other hammer toe(s) (acquired), left foot M20.42 and Arthritis of joint of lesser toe, left M19.072 Assessments Encounter Date Diagnosis (ICD Code) Assessment Notes Treatment Notes Treatment Clinical Notes Section Notes 07/23/2024 Tinea 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) 07/23/2024 Atherosclerosis of lytton artery of both lower extremities, with unspecified presence of clinical manifestation (ICD-10 - I70.203) Q7(A), Q8(2B), Q9(1B,2C) 07/23/2024 Pain in right toe(s) (ICD-10 - M79.674) 07/23/2024 Pain in left toe(s) (ICD-10 - M79.675) 07/23/2024 Other hammer toe(s) (acquired), right foot (ICD-10 - M20.41) 07/23/2024 Arthritis of joint of lesser toe, right (ICD-10 - M19.071) 07/23/2024 Other hammer toe(s) (acquired), left foot (ICD-10 - M20.42) 07/23/2024 Arthritis of joint of lesser toe, left (ICD-10 - M19.072) Plan Of Treatment Pending Test Test Name Order Date [id number] NAIL, 6 OR MORE 07/23/2024 [id number]-ONWU SKIN LESIONS, OVER 4 07/24/19 Next Appt Details Provider Name:Raul Tavera , 10/22/2024 09:30:00 AM, [address] [place], [address], Insurance Providers Payer Name Payer Address Payer Phone Subscriber Number Group Number Insured Name Patient Relationship to Insured Coverage Start Date Coverage End Date [employer] Medicare [id number] [address] [address] [place] [address] [id number] Russell Saeed Self - patient is the insured Medical (General) History Medical History History ICD Code asthma Back,Hip,and Knee pain Broken bones Headaches/Migraines Heart disease Hiatal hernia Numbness (Neuropathy) Poor circulation Reflux ( GERD) Stomach ulcer Ulcer (Skin) Vascular phlebitis (clots) Measles Mumps Chicken pox Joint implants/screws Hypertension Hypercholesterolemia Surgical History Surgery Date(Month/Year) back surgery 2014 Hospitalization History Reason Date(Month/Year) [facility] [place]-Pneumonia 05/2024
--- OUTSIDE RECORDS SUMMARY | 2024-08-17 16:43 | XMS_ITS ---
Author Organization [facility] [place] Address [address] [facility] [place] [address] Care Team Providers Care Site Foreman Name Role Phone Kiana Mckenna MD Primary Care Provider Raul Romero Unavailable [phone] Allergies Allergen (clinical drug ingredient) Drug/Non Drug Allergy documented on EMR Reaction Allergy Type Onset Date Status ibuprofen Advil Throw up Drug Allergy Active Aleve Throw up Drug Allergy Active Motrin Throw up Drug Allergy Active REASON FOR VISIT At Risk Footcare, Painful Nail(s) aggravated by shoes and causing difficulty standing/walking., Painful Toe(s) Medications Medication SIG (Take, Route, Frequency, Duration) Notes Start Date End Date Status Xarelto 10 MG Oral for 30 Days Active Naloxone HCl 4 MG/0.1ML PLEASE SEE ATTAC HED FOR DETAILED DIRECTIONS Nasal for 30 Days Active Lisinopril 10 MG Oral for 90 Days Active predniSONE 10 MG PLEASE SEE ATTACHED FOR DETAILED DIRECTIONS Oral for 15 Days Active Triamcinolone Acetonide 0.1 % USE 1 APPLICATION TOPICALLY DAILY TO RASH OF THE HAND External for 14 Days Active hydrOXYzine HCl 25 MG TAKE 1 TABLET BY M OUTH THREE TIMES A DAY FOR ITCH Oral for 90 Days Active Atorvastatin Calcium 40 MG Oral for 30 Days Active Celecoxib 100 MG Oral for 30 Days Active Dexlansoprazole 60 MG Oral for 30 Days Active Linezolid 600 MG TAKE 1 TABLET BY IFRAH TH EVERY 12 HOURS Oral for 13 Days Active Pregabalin 100 MG TAKE 1 CAPSULE BY MO UTH 3 TIMES A DAY Oral for 30 Days Active Furosemide 20 MG Oral for 30 Days Active Amoxicillin-Pot Clavulanate 875-125 MG Oral for 13 Days Active Ipratropium-Albuterol 0.5-2.5 (3) MG/3ML Inhalation for 20 Days Active Cyclobenzaprine HCl 10 MG Oral for 30 Days Active Trelegy Ellipta 200-62.5-25 MCG/ACT USE 1 INHALATION BY MOUTH DIRECTED DAILY Inhalation for 30 Days Active oxyCODONE HCl 5 MG Oral for 28 Days Active Famotidine 20 MG TAKE 1 TABLET BY IFRAH TH DAILY Oral for 90 Days Active Pantoprazole Sodium 40 MG TAKE 1 TABLET BY MOUTH DAILY AT 630 Oral for 90 Days Active Clopidogrel Bisulfate 75 MG TAKE 1 TABLE T BY MOUTH DAILY Oral for 30 Days Active Magnesium 250 MG 1 tablet with a meal Orally Once a day 07/16/2024 Active Nystatin 819281 UNIT/GM External for 30 Days Active Xtampza ER 18 MG Oral for 28 Days Active Nystatin 909235 UNIT/GM External for 7 Days Active Tamsulosin HCl 0.4 MG Oral for 90 Days Active Social History Tobacco Use: Social [...] Problem Status W/U Status Risk Notes Problem Bilateral atherosclerosis of arteries of lower limbs (disorder) (48782976132441622 ) Atherosclerosis of [place] artery of both lower extremities, with unspecified presence of clinical manifestation (I70.203) Active confirmed Q7(A), Q8(2B), Q9(1B,2 C) Problem Acquired hammer toe of right foot (4377347880194739) Other hammer toe(s) (acquired), right foot (M20.41) Active confirmed Problem Localized, primary osteoarthritis of the ankle and/or foot (091163871) Arthritis of joint of lesser toe, right (M19.071) Active confirmed Problem Acquired hammer toe of left foot (9181129122494277) Other hammer toe(s) (acquired), left foot (M20.42) Active confirmed Problem Localized, primary osteoarthritis of the ankle and/or foot (401620430) Arthritis of joint of lesser toe, left (M19.072) Active confirmed Vital Signs Height 5 ft 11inch in 07/23/2024 Weight 220 lbs 07/23/2024 BMI 30.68 kg/m2 07/23/2024 Blood pressure systolic 130 mm Hg 07/24/19 Blood pressure diastolic 65 mm Hg 025 Procedures Procedure Date Ordered Date Performed Result Body Sit e 04633-JBKBBGK NAIL, 6 OR MORE 07/23/2024 N/A 55235-FIXT SKIN LESIONS, OVER 4 07/23/2024 N/A Encounters Encounter Location Date Provider Diagnosis [facility] [place] [address] [place] [address] 07/23/2024 Raul Tavera Atherosclerosis of [place] artery of both lower extremities, with unspecified [...] Notes Treatment Clinical Notes Section Notes 07/23/2024 Atherosclerosis of [place] artery of both lower extremities, with unspecified presence of clinical manifestation (ICD-10 - I70.203) Q7(A), Q8(2B), Q9(1B,2C) 07/23/2024 Tinea 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) 07/23/2024 Pain in right toe(s) (ICD-10 - [...] Treatment Pending Test Test Name Order Date 32854-IPPWAYR NAIL, 6 OR MORE 07/23/2024 17041-PSJD SKIN LESIONS, OVER 4 07/24/19 Next Appt Details Follow Up: prn, Reason: Provider Name:Raul Tavera , 10/22/2024 09:30:00 AM, [address] [place] [address], [id number], Procedure Notes * Category Sub-Category Detail Notes Debride Nail 6-10 Nail debridement Due to the cl inical pathology outlined in the exam findings, performance of this nail treatment is medically necessary as its management by an unskilled/untrained nonprofessional would put this patients foot and overall health at risk. Therefore, debridement to affected nail(s), as described in exam ( TA, T1, T2, T3, T4, T6, T7, T8, T9 ), was performed exclusively by the physician of record to reduce/remove overall nail length, girth, thickness, subungual debris, and necrotic tissue, by manual and/or electrical means through the use of a nail nipper and/or dremel-type custom grinder, to a more viable healthy nail plate or bed tissue 6-10 nails in total. Silver nitrate was used for any petechial bleeding as necessary. Definitive antifungal treatment options, both pharmaceutical and surgical, have been reviewed and discussed with the patient. The patient solely prefers the use of intermittent/as needed professional debridement services for their nail condition and understands the need for additional periodic treatments to maintain effectiveness in symptomatic relief - 81138 Keratoma Treatment Parring or Cutting o f Benign Hyperkeratotic Lesion(s) (-57) More than 4 Lesions - Due to the at risk nature of the patients medical condition as documented in the exam findings, performance of this keratoderma treatment is medically necessary as its management by an unskilled/untrained nonprofessional would put this patients foot and overall health at risk. Therefore, the benign hyperkeratotic lesions, (7) in total, locations as stated and described in the exam ( Plantar, IPJ, TA, SUB MTH (s), 1, Left, SUB MTH (s), 2, Left, SUB MTH (s), 4, B/L, SUB MTH (s), 5, B/L ), were pared, and/or cut utilizing a sterile 15 blade, tissue nippers, and/or power dremel instrumentation by the physician of record - 11373, Q7 Progress Notes * Russell MARIADOB:1945 (79 yo M)Acc No.[id number]:07/23/2024 Progress Notes Patient:?Russell MARIA Provider:?Raul Tavera DPM :1945???Age:79 Y???Sex:Male Dereck e:07/23/2024 Address:[address] [place], [place] [id number] Pcp:Kiana Mckenna MD Subjective: * Chief Complaints: * ???At Risk FootcarePainful N ail(s) aggravated by shoes and causing difficulty standing/walking.Painful Toe(s) * HPI: ???At Risk footcare:?Pt States Last PCP Visit:?Date?06/10/2024 ?Misc?Patient accompanied by, Nephew,JHONATAN, who is physically present in exam room at time of visit.?Toe pain:?Nature:?tenderness.?Location:?B/L feet.?Duration:?several years.?Aggravated by:?shoes, any pressure.?Treatments:?rest/alter normal daily activity, change in shoes.? * ROS:?General/Constitutional:?Nausea?denies.?Vomiting?denies.?Hunger Thirst?denies.?Loss appetite?denies.?Chills?denies.?Fatigue?denies.?Fever?denies.?Night Sweats?denies.?Unexplained weight loss?denies.?Unexplained weight gain?admits.?HEENTM:?Dentures?denies.?Dizziness?denies.?Glasses/contacts?denies.?Retinopathy?de nies.?Blurred/double vision?denies.?TMJ?denies.?Discharge/drainage?denies.?Implants?denies.?Sore throat?denies.?Dental implants?denies.?Hard of hearing ?denies.?Difficulty chewing/swallowing/speaking?denies.?Nose bleeds?denies.?Sore mouth?denies.?Respiratory:?On Oxygen?denies.?Pneumonia/pleurisy?denies.?Bronchitis?denies.?Emphysema?denies.?C oughing?denies.?Cough blood?denies.?Shortness of breath?denies.?Wheezing?denies.?Cardiovascular:?Pacemaker?denies.?MVP?denies.?WPW?denies.?CHF?denies.?Heart attack?denies.?Septal defect?denies.?Rapid beat?denies.?Chest pain ?denies.?Atrial Fib.?denies.?Murmur/Palpitations?denies.?Gastrointestinal:?Hemorrhoids?denies.?Stomach/Abdominal pain?denies.?Dark blood stool?denies.?Irritable bowel ?denies.?Constipation?denies.?Diarrhea?denies.?Hematology:?Swelling?admits.?Clots?denies.?Varicose Veins?admits.?Bruising?admits, on anticoagulants.?Bleeding problem?admits, on anticoagulants.?Genitourinary:?Blood urine?denies.?Frequent/Painfu/urination/bladder control?denies.?Kidney stones?denies.?Infection (UTI)?denies.?Nephropathy?denies.?sex trans dis (STD)?denies.?Prostate?denies.?Musculoskeletal:?Hammertoes?admits.?Bunions?denies.?Back Pain?denies.?Muscle Cramps/ Resting?denies.?Muscle cramps / walking?denies.?Generalized aches and pains?denies.?Weakness?denies.?Integ.:?Jin?denies.?Scars?denies.?Corns/calluses?admits.?Ingrown nails?admits.?Painful nails?admits.?Open Sores?denies.?Rashes?denies.?Neurologic:?Difficulty sleeping?denies.?Brain disorder?denies.?Numbness?denies.?Balance trouble?denies.?Confusion?denies.?Fainting/blackouts?denies.?Tingling?denies.?Tr emors?denies.? * Medical History:? * Surgical History:?back surge ry 2014 * Hospitalization/Major Diagno stic Procedure:?C-Pneumonia 05/2024 * Family History:?Mother: dece ased, diagnosed with Diabetic - NIDDM.?Father: .? * Social History:?Tobacco Use:?Tobacco use other than smoking?Are you an other tobacco user??No ?Tobacco Control (Standard)?Tobacco use:?Current smoker ?When did you start smoking??07/02/2004 ?How often do you smoke cigarettes??Every day ?How many cigarettes a day do you smoke??5 or less ?How soon after you wake up do you smoke your first cigarette??6-30 minutes ?Are you interested in quitting??Ready to quit ?Additional Findings: Tobacco user?Moderate cigarette smoker (10-19 cigs/day) ???Drugs/Alcohol:?Drugs?Have you used drugs other than those for medical reasons in the past 12 months??No ???Miscellaneous:?Caffeine: yes, frequency:. ?Exercise: no. ?Marital status: Single. ?Occupation: None. ???Drug/Alcohol:?AUDIT-C (Standard)?Did you have a drink containing alcohol in the past year??No ?Points?0 ?Interpretation?Negative * Medications:?TakingMagnesium 250 MG Tablet 1 tablet with a meal Orally Once a day Nystatin 361866 UNIT/GM Powder External Xtampza ER 18 MG Capsule ER 12 Hour Abuse-Deterrent Oral Nystatin 815662 UNIT/GM Cream External Tamsulosin HCl 0.4 MG Capsule Oral oxyCODONE HCl 5 MG Tablet Oral Famotidine 20 MG Tablet TAKE 1 TABLET BY MOUTH DAILY Oral Pantoprazole Sodium 40 MG Tablet Delayed Release TAKE 1 TABLET BY MOUTH DAILY AT 630 Oral Clopidogrel Bisulfate 75 MG Tablet TAKE 1 TABLET BY MOUTH DAILY Oral Trelegy Ellipta 200-62.5-25 MCG/ACT Aerosol Powder Breath Activated USE 1 INHALATION BY MOUTH DIRECTED DAILY Inhalation Pregabalin 100 MG Capsule TAKE 1 CAPSULE BY MOUTH 3 TIMES A DAY Oral Cyclobenzaprine HCl 10 MG Tablet Oral Furosemide 20 MG Tablet Oral Amoxicillin-Pot Clavulanate 875-125 MG Tablet Oral Ipratropium-Albuterol 0.5-2.5 (3) MG/3ML Solution Inhalation Linezolid 600 MG Tablet TAKE 1 TABLET BY MOUTH EVERY 12 HOURS Oral hydrOXYzine HCl 25 MG Tablet TAKE 1 TABLET BY MOUTH THREE TIMES A DAY FOR ITCH Oral Atorvastatin Calcium 40 MG Tablet Oral Celecoxib 100 MG Capsule Oral Dexlansoprazole 60 MG Capsule Delayed Release Oral Xarelto 10 MG Tablet Oral predniSONE 10 MG Tablet PLEASE SEE ATTACHED FOR DETAILED DIRECTIONS Oral Triamcinolone Acetonide 0.1 % Cream USE 1 APPLICATION TOPICALLY DAILY TO RASH OF THE HAND External Naloxone HCl 4 MG/0.1ML Liquid PLEASE SEE ATTACHED FOR DETAILED DIRECTIONS Nasal Lisinopril 10 MG Tablet Oral Medication List reviewed and reconciled with the patientTaking Magnesium 250 MG Tablet 1 tablet with a meal Orally Once a day Taking Nystatin 003204 UNIT/GM Powder External Taking Xtampza ER 18 MG Capsule ER 12 Hour Abuse-Deterrent Oral Taking Nystatin 170395 UNIT/GM Cream External Taking Tamsulosin HCl 0.4 MG Capsule Oral Taking oxyCODONE HCl 5 MG Tablet Oral Taking Famotidine 20 MG Tablet TAKE 1 TABLET BY MOUTH DAILY Oral Taking Pantoprazole Sodium 40 MG Tablet Delayed Release TAKE 1 TABLET BY MOUTH DAILY AT 630 Oral Taking Clopidogrel Bisulfate 75 MG Tablet TAKE 1 TABLET BY MOUTH DAILY Oral Taking Trelegy Ellipta 200-62.5-25 MCG/ACT Aerosol Powder Breath Activated USE 1 INHALATION BY MOUTH DIRECTED DAILY Inhalation Taking Pregabalin 100 MG Capsule TAKE 1 CAPSULE BY MOUTH 3 TIMES A DAY Oral Taking Cyclobenzaprine HCl 10 MG Tablet Oral Taking Furosemide 20 MG Tablet Oral Taking Amoxicillin-Pot Clavulanate 875-125 MG Tablet Oral Taking Ipratropium-Albuterol 0.5-2.5 (3) MG/3ML Solution Inhalation Taking Linezolid 600 MG Tablet TAKE 1 TABLET BY MOUTH EVERY 12 HOURS Oral Taking hydrOXYzine HCl 25 MG Tablet TAKE 1 TABLET BY MOUTH THREE TIMES A DAY FOR ITCH Oral Taking Atorvastatin Calcium 40 MG Tablet Oral Taking Celecoxib 100 MG Capsule Oral Taking Dexlansoprazole 60 MG Capsule Delayed Release Oral Taking Xarelto 10 MG Tablet Oral Taking predniSONE 10 MG Tablet PLEASE SEE ATTACHED FOR DETAILED DIRECTIONS Oral Taking Triamcinolone Acetonide 0.1 % Cream USE 1 APPLICATION TOPICALLY DAILY TO RASH OF THE HAND External Taking Naloxone HCl 4 MG/0.1ML Liquid PLEASE SEE ATTACHED FOR DETAILED DIRECTIONS Nasal Taking Lisinopril 10 MG Tablet Oral Medication List reviewed and reconciled with the patient * Allergies:?Advil: Throw upAl karma: Throw upMotrin: Throw upyes[Allergies Verified] Objective: * Vitals:?Ht:5 ft 11inch, Wt:2 20, BMI: 30.68, Shoe size:11-11.5, BP:130/65mm Hg, Ht-cm: 180.34 cm, Wt-k.79 kg. 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 0/4, B/L.?PT PULSES (B):? 0/4, B/L.?CAPILLARY FILL TIME:? delayed, all digits, B/L.?TROPHIC CONDITION-TEXTURE/ELASTICITY/TURGOR/HAIR GROWTH (B):? decreased, fragile, thin, shiny skin, with sparse to absent hair growth, B/L.?TEMPERTURE GRADIENT (C):? decreased, cool to cool, proximal to distal, B/L.?PIGMENTATION:?brawny, B/L.?EDEMA (C):?3/4, non-pitting, without aching pain, Leg(s), Ankle(s), Foot/Feet, B/L.?CLAUDICATION (C):?denies, B/L.?REST PAIN:?denies, B/L.?PARESTHESIA (C):?absent, B/L.?BURNING (C):?absent, B/L.?Nails: ?NAILS are:? Elongated, overgrown, dystrophic, lytic, greater than 3mm thick, discolored and friable with crumbly malodorous subungual debris, with pain on palpation,?TA, T1, T2, T3, T4,?T6, T7, T8, T9.?Dermatologic: ?SKIN FINDINGS:?Skin exam reveals Keratotic lesion(s) located at, Plantar, IPJ, TA, SUB MTH (s), 1, Left, SUB MTH (s), 2, Left, SUB MTH (s), 4, B/L, SUB MTH (s), 5, B/L.?Orthopedic: ?MUSCLE STRENGTH:?Generalized decrease in strength, B/L.?DIGITAL DEFORMITIES:?Digital contracture, PIPJ, 2-5 B/L, non-reducible with WB or to push-up test, no over, nor underlapping.?FOOTWEAR EVALUATION:? shoe gear properties exacerbate patients foot/toe deformity.?Neurological: ?SENSORY:?Neurological exam reveals intact sensorium, pain sensation normal, vibration sensation intact, pinprick sensation is normal in the lower extremities, Pt denies, anesthesia, burning, paresthesia, tingling, B/L.?General Examination: ?GENERAL APPEARANCE:?Reveals a pleasant, alert, well nourished, well- developed, well hydrated individual, who demonstrates proper attention to hygiene/body habitus, and is in no acute distress, Pt serves as own historian for office visit today.?ORIENTED:?person, place, and time.? Assessment: * Assessment: 1.?Tinea unguium - B35.1???2 .?Atherosclerosis of [place] artery of both lower extremities, with unspecified presence of clinical manifestation - I70.203 (Primary)???Specify :Q7???Notes :Q7(A), Q8(2B), Q9(1B,2C)???3.?Pain in right toe(s) - M79.674???4.?Pain in left toe(s) - M79.675???5.?Other hammer toe(s) (acquired), right foot - M20.41???Specify :? Chronic problem, Stable (1=3,2=4)???6.?Arthritis of joint of lesser toe, right - M19.071???7. Other hammer toe(s) (acquired), left foot - M20.42???Specify :Chronic problem, Stable (1=3,2=4)???8.?Arthritis of joint of lesser toe, left - M19.072??? Plan: * Treatment: 2.?Tinea unguium?Procedure: 10069-DWDOPOI NAIL, 6 OR MORE * Procedures:?Debride Nail 6-10:?Nail debridement?Due to the clinical pathology outlined in the exam findings, performance of this nail treatment is medically necessary as its management by an unskilled/untrained nonprofessional would put this patients foot and overall health at risk. Therefore, debridement to affected nail(s), as described in exam (?TA, T1, T2, T3, T4,?T6, T7, T8, T9?), was performed exclusively by the physician of record to reduce/remove overall nail length, girth, thickness, subungual debris, and necrotic tissue, by manual and/or electrical means through the use of a nail nipper and/or dremel-type custom grinder, to a more viable healthy nail plate or bed tissue 6-10 nails in total. Silver nitrate was used for any petechial bleeding as necessary. Definitive antifungal treatment options, both pharmaceutical and surgical, have been reviewed and discussed with the patient. The patient solely prefers the use of intermittent/as needed professional debridement services for their nail condition and understands the need for additional periodic treatments to maintain effectiveness in symptomatic relief - 36434.?Keratoma Treatment:?Parring or Cutting of Benign Hyperkeratotic Lesion(s)?(-57) More than 4 Lesions - Due to the at risk nature of the patients medical condition as documented in the exam findings, performance of this keratoderma treatment is medically necessary as its management by an unskilled/untrained nonprofessional would put this patients foot and overall health at risk. Therefore, the benign hyperkeratotic lesions, (7) in total, locations as stated and described in the exam (?Plantar,?IPJ,?TA,?SUB MTH (s),?1,?Left,?SUB MTH (s),?2,?Left,?SUB MTH (s),?4,?B/L,?SUB MTH (s),?5,?B/L?), were pared, and/or cut utilizing a sterile 15 blade, tissue nippers, and/or power dremel instrumentation by the physician of record - 90578, Q7.? * Procedure Codes:?35493 DEBRI DE NAIL, 6 OR MORE, Modifiers: XS 95251 TRIM SKIN LESIONS, OVER 4, Modifiers: XS , Q7 * Preventive Medicine:? ??Counseling:?Tobacco use:?Patient counseled on the dangers of smoking and urged to quit:?07/23/2024 ?Discussion:?-03: Office or other outpatient visit for the evaluation and management of a new patient, which required a medically appropriate history and/or examination and LOW level of DECISION MAKING for: 1 STABLE ACUTE UNCOMPLICATED PROBLEM, 2 OR MORE MINOR PROBLEMS, OR 1 STABLE CHRONIC PROBLEM, THAT POSE(S) A LOW RISK FOR MORBIDITY/MORTALITY. The visit on the day of the encounter encompassed interpreting the data and educating the patient as to the nature of their condition, treatment options available according to their individual PMH, meds, allergies, and overall health/living conditions, as well as any potential risks or complications that may occur from a failure to adhere to, and participate in, the recommended course of therapy. The discussion included a complete verbal, and/or written explanation of the examination results, any x-rays taken, the proposed diagnosis, and outline of the treatment plan. A schedule for future care needs was also explained. The patient verbalized an understanding of the instructions at this time and agreed to be an active participant in their treatment. If the patient should think of any questions or concerns after the visit, I have encouraged the patient to call the office.?Digital Surgery:?We elected to try conservative treatment at the present time, due to the patients age, medical history, and circulatory constraints.?Digital Treatment:?HT- I explained to the patient the possible etiologies of Hammertoes, including genetics/foot type/shoegear/activity level/exercise routine and the risks/benefits of all the different treatment options for their pain including: No treatment at all, Rest, Ice, New/supportive/wider/deeper Shoe gear, Digital Padding/Strapping/Taping/Bracing/Gel protective sleeves, Foot/Ankle AFO Bracing, Stretching exercises, Deep Tissue Massage, Arch support/shoe inserts with splay metatarsal padding, and Custom orthoses. I insisted that any digital devices be removed daily and not worn overnight for safety. The patient is to carefully examine the toes daily for any skin irritation while using any splinting or padding device. The advantages and disadvantages of each option were discussed and the patients questions re: shoe gear, padding, custom vs prefabricated inserts, activity level, and consistency in home treatment regimens for optimal success were answered to their verbally confirmed satisfaction.?Shoe Gear Counseling:?The patient and I reviewed the types of shoes they should be wearing. My recommendation included obtaining a well-fitted shoe with a good supportive, non-foldable nor twistable sole, plenty of toe/room for the forefoot, and proper arch support. Based on todays examination, I recommended the patient look for new shoes, by having their feet professionally measured. We discussed that generally the best time of the day for a shoe fitting is the afternoon. Different shoes types and brands to best match the patients occupation and vocation were discussed. Specific brand selection will be up to the patient, their individual foot condition/deformities, and fit. The patient and I reviewed the standard new shoe break in period by wearing them for a few hours a day while checking for redness or sores as wear time is increased. The patient verbally confirmed to understanding the information discussed.? ??Screening/Special Tests:?Fall Risk?Screening:?No falls in the past year ?FALLS: Screening for Future Fall Risk?Have you had any falls with injury in the past year??No * Follow Up:?prn * Images: * Sign off status: Completed true * Provider:?Raul Tavera DPM Date:?2024 Generated for Qamar rock/Micki/Larry on:?08/17/2024 04:42 PM EDT History and Physical Notes * HPI (History of Present Illness) Category Sub-Category Detail Notes Category Not es Toe pain Nature: tenderness Location: B/L feet Duration: several years Aggravated by: shoes, any pressure Treatments: rest/alter normal da mike activity, change in shoes At Risk footcare Pt States Last PCP Visit: Date: 5 [facility] Patient accompanied by, Nephew, JHONATAN, who is physically present in exam room at time of visit Examination Category Sub-Category Detail Notes Category Not es Neurological SENSORY: Neurological exa m reveals intact sensorium, pain sensation normal, vibration sensation intact, pinprick sensation is normal in the lower extremities, Pt denies, anesthesia, burning, paresthesia, tingling, B/L Dermatologic SKIN FINDINGS: Skin exam reveal s Keratotic lesion(s) located at, Plantar, IPJ, TA, SUB MTH (s), 1, Left, SUB MTH (s), 2, Left, SUB MTH (s), 4, B/L, SUB MTH (s), 5, B/L Orthopedic FOOTWEAR EVALUATION: shoe gear p roperties exacerbate patients foot/toe deformity DIGITAL DEFORMITIES: Digital contracture , PIPJ, 2-5 B/L, non-reducible with WB or to push-up test, no over, nor underlapping MUSCLE STRENGTH: Generalized decrease in strength, B/L General Examination GENERAL APPEARANCE: Reveals a pleasant, alert, well nourished, well-developed, well hydrated individual, who demonstrates proper attention to hygiene/body habitus, and is in no acute distress, Pt serves as own historian for office visit today ORIENTED: person, place, and t art Vascular DP PULSES (B): 0/4, B/L PT PULSES (B): 0/4, B/L CAPILLARY FILL TIME: delayed, all digits , B/L TEMPERTURE GRADIENT (C): decreased, cool to cool, proximal to distal, B/L TROPHIC CONDITION-TEXTURE/ELASTICITY/TURGOR/HAIR GROWTH (B): decreased, fragile, thin, shiny skin, wi th sparse to absent hair growth, B/L EDEMA (C): 3/4, non-pitting, wi thout aching pain, Leg(s), Ankle(s), Foot/Feet, B/L CLAUDICATION (C): denies, B/L REST PAIN: denies, B/L PIGMENTATION: brawny, B/L AMPUTATION, NON-TRAUMATIC (A): T5 PARESTHESIA (C): absent, B/L BURNING (C): absent, B/L Nails NAILS are: Elongated, overg rown, dystrophic, lytic, greater than 3mm thick, discolored and friable with crumbly malodorous subungual debris, with pain on palpation, TA, T1, T2, T3, T4, T6, T7, T8, T9
== END 2024-08-17 16:43 | disposition home or self-care (01) ==
LOC: HO.HMCFM 16:00
PROVIDERS: PCP Internal Medicine; Visit Provider Internal Medicine
DX: R53.1 Weakness (principal); Z09 Encounter for follow-up examination after completed treatment for conditions other than malignant neoplasm; R29.6 Repeated falls; G89.29 Other chronic pain

== ENCOUNTER → 2024-08-17 15:59 | Outpatient (BNVA) | payer MEDICARE, MEDICAID, SELFPAY | PROVIDERS: PCP Internal Medicine; Visit Provider Internal Medicine | DX: Z09 Encounter for follow-up examination after completed treatment for conditions other than malignant neoplasm (principal); R53.1 Weakness; R29.6 Repeated falls; G89.29 Other chronic pain; M51.35 Other intervertebral disc degeneration, thoracolumbar region; E11.9 Type 2 diabetes mellitus without complications; I25.10 Atherosclerotic heart disease of native coronary artery without angina pectoris; J44.9 Chronic obstructive pulmonary disease, unspecified; I50.9 Heart failure, unspecified; Z79.891 Long term (current) use of opiate analgesic; Z99.81 Dependence on supplemental oxygen | CPT/HCPCS: 99212 ==

== ENCOUNTER 2024-08-25 16:12 | Emergency (ER) | payer MEDICARE, MEDICAID, SELFPAY ==
--- NOTE | ~2024-08-25 | XR_ITS ---
CLINICAL HISTORY: cough 1 view chest x-ray Comparison: CR - XR CHEST 1V - 07/11/24 01:50 EDT Findings: No consolidation or effusion. Normal size heart. No acute fracture. IMPRESSION: 1. No acute findings. This document has been electronically signed by: Lizbet Pollard MD on 08/25/2024 18:37:18
--- NOTE | ~2024-08-25 | CT_ITS ---
CLINICAL HISTORY: fall CT cervical spine without contrast Comparison: None Findings: Normal limited view of the intracranial contents. Soft tissues of the neck are normal. Lung apices are clear. Normal vertebral body alignment. No fractures or dislocations. There is advanced degenerative narrowing of C5-6 and C6-7. The spinous processes are unremarkable. There is ankylosis of facet joints at C4-5. The facet joints are in good alignment. There is uncovertebral joint and facet hypertrophy with moderate foraminal stenosis at C2-3 on the right, advanced bilateral foraminal stenosis at C3-4, advanced foraminal stenosis at C4-5 on the right, moderate foraminal stenosis at C5-6 on the right, moderate bilateral foraminal stenosis at C6-7, Impression: Degenerative changes with no signs of acute trauma. This document has been electronically signed by: Clayton Nagel MD on 08/25/2024 19:57:10
--- NOTE | ~2024-08-25 | CT_ITS ---
CLINICAL HISTORY: fall , ?head strike CT Head Without Contrast: Comparison: 12/31/2023 Findings: Cortical sulci are prominent Basal ganglia are unremarkable . 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 No shift in midline structures No intraparenchymal bleeding or abnormal extra axial blood fluid collections Normal pituitary size Clear paranasal sinuses Unremarkable orbital structures No depressed fractures Impression: Unremarkable CT of the head, no signs of acute trauma This document has been electronically signed by: Clayton Nagel MD on 08/25/2024 19:56:29
--- NOTE | 2024-08-25 16:49 | ECG_ITS ---
Test Reason : WEAKESS Blood Pressure : */* mmHG Vent. Rate : 97 BPM Atrial Rate : 102 BPM P-R Int : * ms QRS Dur : 166 ms QT Int : 404 ms P-R-T Axes : * -49 8 degrees QTcB Int : 513 ms Sinus tachycardia Premature ventricular complexes Right bundle branch block Left anterior fascicular block Bifascicular block Abnormal ECG When compared with ECG of 10-Jul-2024 23:00, Premature ventricular complexes are now Present Referred By: Generic ED Physician Electronically Signed By: VISHAL SARAH MD
[2024-08-25 16:58] VITALS: BP 129/79; PULSE 103; RESP 14; TEMP 36.8; O2SAT 99
[2024-08-25 17:00] VITALS: BP 129/79; BP 158/72; PULSE 100; PULSE 71; RESP 14; TEMP 36.8; O2SAT 95; O2SAT 96; BMI 35.7
--- NOTE | 2024-08-25 17:22 | ED_ITS ---
HPI - Fall General Chief Complaint: Fall Stated Complaint: fell out of bed, weakness Time Seen by Provider: 08/25/24 16:44 History of Present Illness ED Provider: Abhishek Henriquez MD HPI Narrative: [age] male who says he nearly fell when changing a pot of coffee he tells me he caught himself on the bed with his elbows and he only feels he may have injured his right lateral neck when he twisted to prevent his fall. No head strike Related Data Home Medications ?Medication ?Instructions ?Recorded ?Confirmed celecoxib 100 mg capsule 100 mg PO BEDTIME 01/09/24 08/18/24 furosemide 40 mg tablet 40 mg PO DAILY 06/07/24 08/18/24 fluticasone fur. 200 mcg-umeclid 1 ea inhalation DAILY 06/28/24 08/18/24 62.5 mcg-vilant 25 mcg inhalat.powder (Trelegy Ellipta) cephalexin 500 mg tablet 500 mg PO QID 08/17/24 08/18/24 lisinopril 5 mg tablet 5 mg PO DAILY 08/17/24 08/18/24 Previous Rx's ?Medication ?Instructions ?Recorded Oxygen Home Use #1 ea 12/31/23 albuterol sulfate 90 mcg/actuation 2 puff inhalation Q6H PRN 12/31/23 aerosol inhaler shortness of breath or wheezing #8.5 grams nebulizer accessories #1 ea 12/31/23 atorvastatin 40 mg tablet 40 mg PO DAILY #90 tabs 04/20/24 clopidogrel 75 mg tablet 75 mg PO DAILY #90 tabs 04/20/24 famotidine 20 mg tablet 20 mg PO DAILY #90 tabs 04/20/24 pantoprazole 40 mg tablet,delayed 40 mg PO DAILY@0630 #90 tabs 04/20/24 release pregabalin 100 mg capsule 100 mg PO TID #270 caps 04/20/24 rivaroxaban 10 mg tablet (Xarelto) 10 mg PO DAILY #90 tabs 04/20/24 tamsulosin 0.4 mg capsule 0.8 mg (2 x 0.4 mg) PO DAILY #180 04/20/24 caps FreeStyle Lancets 28 gauge #100 ea 04/26/24 (lancets) FreeStyle Lite Meter #1 ea 04/26/24 (blood-glucose meter) blood sugar diagnostic (FreeStyle #100 ea 04/26/24 Lite Strips) dexlansoprazole 60 mg 60 mg PO DAILY #90 caps 04/26/24 capsule,biphase delayed release naloxone 4 mg/actuation nasal 4 mg intranasal Q2M #2 ea 06/01/24 spray (Narcan) Diabetic shoes #1 ea 06/04/24 triamcinolone acetonide 0.1 % 1 appl topical DAILY #30 grams 06/04/24 topical cream ipratropium 0.5 mg-albuterol 3 mg 3 ml inhalation TID #180 mL 06/30/24 (2.5 mg base)/3 mL nebulization soln linezolid 600 mg tablet 600 mg PO Q12H #26 tabs 06/30/24 Xtampza ER 18 mg capsule sprinkle 18 mg PO BID #56 caps 07/14/24 (oxycodone myristate) Chucks disposable under pads #1 ea 08/16/24 Hospital Bed #1 ea 08/16/24 Toliet seat risers #1 ea 08/16/24 COMMODE #1 ea 08/17/24 Xtampza ER 27 mg capsule sprinkle 27 mg PO BID #56 caps 08/17/24 (oxycodone myristate) oxycodone 10 mg tablet 10 mg PO Q4H PRN pain #168 tabs 08/17/24 Allergies Allergy/AdvReac Type Severity Reaction Status Date / Time lemon Allergy Anaphylaxis Verified 08/25/24 18:51 morphine Allergy Anaphylaxis Verified 08/25/24 18:51 vancomycin Allergy Chest Pain Verified 08/25/24 18:51 [facility] Past Medical History Medical History COPD (chronic obstructive pulmonary disease) GERD (gastroesophageal reflux disease) Hyperlipidemia Hypertension BPH (benign prostatic hyperplasia) CHF (congestive heart failure) Infrarenal abdominal aortic aneurysm (AAA) without rupture Peripheral vascular disease DDD (degenerative disc disease), lumbosacral Nicotine dependence, cigarettes, uncomplicated Nocturnal hypoxemia PAD (peripheral artery disease) Paroxysmal atrial fibrillation Social History Social History Household Members: Other Household Members Other:: niece and family live upstairs Housing: House Do you presently have visiting nurse or other home services: No Alcohol intake: current Patient Tobacco Use Status: Current everyday Tobacco user Tobacco use type: Cigarette Cigarettes Per Day: 1 Years Smoked: 50 plus e-Cigarette/Vaping Use: Former Use Second Hand Smoke Exposure: No Advance Directives Date on File: 07/01/24 service: No Current occupational status: retired Cognitive needs: No Hearing needs: Yes Vision needs: Yes Physical Exam 2 Vital Signs: Vital Signs: Last Vital Signs Temp 97.9 F 08/25/24 21:14 Pulse 83 08/25/24 21:14 Resp 16 08/25/24 21:14 BP 128/61 08/25/24 21:14 Pulse Ox 98 08/25/24 21:14 O2 Del Method Nasal Cannula 08/25/24 21:14 O2 Flow Rate 4 08/25/24 21:14 Oxygen Flow Rate 2 08/25/24 17:00 BMI result Body Mass Index 35.7 Const: Other: EXAM: Gen: Alert, awake, chronically ill-appearing. Await alert oriented x3. Head: Atraumatic no abrasions skin break hematoma or step-off Eyes: Anicteric, Normal conjunctiva. ENT: Moist mucosa, no pallor. ? Neck: Supple. No midline bony tenderness. He is tender when I palpate the superior paraspinal musculature particularly on the right side there is no lesions or bruising there Respiratory: Breathing comfortably, No distress.Clear to auscultation bilaterally, symmetric chest expansion, No wheeze, rales, ronchi. Cardiovascular: Regular rate and rhythm. No murmurs or rub. Well perfused periphery, warm extremities. No edema. ? Abdominal: No FOCAL TENDERNESS. Soft, no objective distension. No palpable masses or obvious organomegaly. ?No guarding, no rebound tenderness or other peritoneal findings. : No flank tenderness. Neuro: Alert. Gross movement of all extremities intact. ? Vital signs: See flowsheet Medications Administered Discontinued Medications Generic Name Dose Route Start Last Admin Trade Name Freq PRN Reason Stop Dose Admin Acetaminophen 975 mg 08/25/24 17:24 08/25/24 17:57 Acetaminophen 325 Mg Tablet PO 08/25/24 17:25 975 mg ONCE ONE Administration Benzonatate 100 mg 08/25/24 17:55 08/25/24 17:59 Benzonatate 100 Mg Capsule PO 08/25/24 17:56 100 mg ONCE ONE Administration Procedures Procedure Narrative Procedure Narrative: EMERGENCY ULTRASOUND INTERPRETATION-Limited Point of Care Venous (DVT) [This study was ordered, performed, and interpreted by myself. The study reveals: Impression: NO EVIDENCE OF DVT. I RECOMMENDED TO THE PATIENT REPEAT ULTRASOUND IN ONE WEEK IF SYMPTOMS PERSIST.] [Indication: Laterality: RIGHT Common Femoral: -Full Compressibility: YES -Clot Seen: NO Superficial Femoral: -Full Compressibility: YES -Clot Seen: NO Popliteal: -Full Compressibility: YES -Clot Seen: NO Other: Performed by: Abhishek Henriquez MD Images were stored CPT: 84575] Medical Decision Making Medical Decision Making MDM Narrative: 79-year-old male bed-bound chronically ill. Mainly coming in for a near fall he tells me he braced himself with his elbows. He thinks upon twisting he strained his neck and has some tenderness of the paraspinal neck musculature. No obvious signs of head strike he is awake alert oriented x3 his niece came into the ED. I am doubtful the patient had head strike LOC or any significant neck injury other than likely cervical muscular strain. Incidentally he points to his right ankle and tells me he has swelling there his legs look chronically edematous left greater than right and he is treated for chronic DVT with anticoagulant. There was no injury or skin break in the right side nor any bony deformities but felt it reasonable to exclude acute DVT with bedside ultrasound. See the note above DVT has been excluded. Patient incidentally reports a cough going on 2 weeks with mild phlegm production no shortness of breath or chest pain Lab Data 08/25/24 18:07 08/25/24 18:07 Labs: Lab Results 08/25/24 Range/Units 18:07 WBC 13.4 H (4.8-10.8) X10*3/uL RBC 4.34 L (4.60-5.80) X10*6/uL Hgb 12.6 L (14.0-18.0) g/dl Hct 38.3 L (42.0-52.0) % MCV 88.2 (80.0-98.0) fL MCH 29.0 (27.0-33.0) pg MCHC 32.9 (31.0-36.0) g/dl RDW 14.3 (11.0-16.0) % Plt Count 278 D (160-400) X10*3/uL MPV 10.3 (9.4-12.4) fL Immature Gran % (Auto) 0.4 (0.0-0.4) % Neut % (Auto) 82.2 H (45-73) % Lymph % (Auto) 8.6 L (20-40) % Cedar % (Auto) 7.7 (2-11) % Eos % (Auto) 0.7 (0-4) % Baso % (Auto) 0.4 (0-2) % Lymph # (Auto) 1.2 (1.2-4.9) X10*3/uL Cedar # (Auto) 1.0 (0.1-1.2) X10*3/uL Eos # (Auto) 0.1 (0.0-0.4) X10*3/uL Baso # (Auto) 0.1 (0.0-0.2) X10*3/uL Abs Immat Gran (auto) 0.05 H (0.00-0.03) X10*3/uL Absolute Neuts (auto) 11.0 H (2.0-8.3) x10*3/uL Absolute Nucleated RBC 0.000 (0.0-0.012) X10*3/uL Nucleated RBC % (auto) 0.0 (0.0-0.2) /100WBC PT 14.6 H D (10.9-12.4) SEC INR 1.3 H D (0.9-1.1) Sodium 137 (135-145) mmol/L Potassium 4.5 (3.3-5.1) mmol/L Chloride 101 (96-108) mmol/L Carbon Dioxide 27 (22-29) mmol/L Anion Gap 14 (12-20) BUN 21 H (9-16) mg/dL Creatinine 1.07 (0.5-1.4) mg/dL Estim Creat Clear Calc TNP Estimated GFR > 60 Random Glucose 138 H (60-115) mg/dL Calcium 8.9 D (8.4-10.2) mg/dL Total Bilirubin 1.0 (0.0-1.0) mg/dL AST 30 (5-37) U/L ALT 15 (0-40) U/L Alkaline Phosphatase 109 (39-117) U/L Troponin I High Sens 5.0 (<3.5-35.0) ng/L Total Protein 7.4 (6.5-8.0) g/dL Albumin 3.9 (3.5-5.0) g/dL Discharge Plan Discharge Clinical Impression: Injury of neck, superficial Patient Disposition: Home, Self-Care Instructions: Acute Neck Pain (ED), Ankle Strain (ED) Additional Instructions: _ DISCHARGE DIAGNOSES: Strain or contusion of the right side of the neck from a fall. Serious bony neck injuries or severe head injuries have been excluded with CT scan DVT or blood clot of the right leg excluded by ultrasound HISTORY OF PRESENTATION: ?Fall prior to arrival EMERGENCY DEPARTMENT COURSE,TESTS, TREATMENTS: While in the ED today you had an ultrasound your right leg which did not show blood clot. You had a CT scan of your head and cervical spine without bony injury or other severe traumatic injuries. You had tenderness on the muscles of your neck suggesting a contusion or strain from your fall. Your lab work was reassuring at a chest x-ray that did not show pneumonia despite your cough. DISCHARGE MEDICATIONS: ?[We have made no changes to your regular medication regimen] FOLLOW-UP: ?Call your primary or general physician soon as possible to discuss your symptoms, your ED visit and to discuss follow up plans Call your primary doctor for follow up INSTRUCTIONS ?& RETURN PRECAUTIONS: If any symptoms change first call your primary physician, if it is after-hours your primary doctors office should have a provider field applications specialist you can speak with. If the symptoms are severe or very concerning to you then call 911 or return to the ED. [07] Abhishek Henriquez MD Emergency Physician [facility] Prescriptions: No Action atorvastatin 40 mg tablet 40 mg PO DAILY Qty: 90 3RF clopidogrel 75 mg tablet 75 mg PO DAILY Qty: 90 3RF famotidine 20 mg tablet 20 mg PO DAILY Qty: 90 3RF pantoprazole 40 mg tablet,delayed release (DR/EC) 40 mg PO DAILY@0630 Qty: 90 3RF pregabalin 100 mg capsule 100 mg PO TID Qty: 270 3RF Xarelto 10 mg tablet 10 mg PO DAILY Qty: 90 3RF Rx Instructions: for 35 days tamsulosin 0.4 mg capsule 0.8 mg PO DAILY Qty: 180 3RF Xtampza ER 18 mg cap,sprinkl,ER12hr(DONT CRUSH) 18 mg PO BID Qty: 56 0RF Rx Instructions: partial fill upon patient request (DME) Chucks disposable under pads See Rx Instructions .Route .MEDSUPPLY Qty: 1 3RF Rx Instructions: As directed (DME) Hospital Bed See Rx Instructions .Route .MEDSUPPLY Qty: 1 0RF Rx Instructions: Ht- , Wt- 229 (DME) Toliet seat risers See Rx Instructions .Route .MEDSUPPLY Qty: 1 0RF Rx Instructions: Ht- . Wt 229 (DME) Oxygen Home Use Kit See Rx Instructions .Route Qty: 1 0RF Rx Instructions: 2 L during daytime and 4 L at the time of sleep (DME) nebulizer accessories Kit See Rx Instructions .Route Qty: 1 0RF Rx Instructions: As directed albuterol sulfate 90 mcg/actuation HFA aerosol inhaler 2 puff inhalation Q6H PRN (Reason: shortness of breath or wheezing) Qty: 8.5 0RF Trelegy Ellipta 200-62.5-25 mcg blister with device 1 ea inhalation DAILY linezolid 600 mg Tablet 600 mg PO Q12H Qty: 26 0RF ipratropium-albuterol 0.5 mg-3 mg(2.5 mg base)/3 mL Solution For Nebulization 3 ml inhalation TID Qty: 180 0RF celecoxib 100 mg capsule 100 mg PO BEDTIME furosemide 40 mg tablet 40 mg PO DAILY Rx Instructions: extra prn naloxone [Narcan] 4 mg/actuation spray,non-aerosol 4 mg intranasal Q2M Qty: 2 1RF Rx Instructions: spray 1 dose into ONE nostril; alternate nostrils w each dose until help arrives dexlansoprazole 60 mg capsule,biphase delayed releas 60 mg PO DAILY Qty: 90 3RF (DME) lancets [FreeStyle Lancets] 28 gauge misc See Rx Instructions .Route Qty: 100 3RF Rx Instructions: once daily (DME) FreeStyle Lite Strips Strip See Rx Instructions .Route Qty: 100 3RF Rx Instructions: once daily (DME) blood-glucose meter [FreeStyle Lite Meter] Kit See Rx Instructions .Route Qty: 1 0RF Rx Instructions: As directed triamcinolone acetonide 0.1 % cream 1 appl topical DAILY Qty: 30 0RF Rx Instructions: to rash of the hand (DME) Diabetic shoes See Rx Instructions .Route .MEDSUPPLY Qty: 1 0RF Rx Instructions: As directed cephalexin 500 mg tablet 500 mg PO QID lisinopril 5 mg tablet 5 mg PO DAILY (DME) COMMODE aduLT See Rx Instructions .Route .MEDSUPPLY Qty: 1 0RF Rx Instructions: daily/continuous Xtampza ER 27 mg cap,sprinkl,ER12hr(DONT CRUSH) 27 mg PO BID Qty: 56 0RF Rx Instructions: must administer with a meal/food; Partial Fill upon patient request. oxycodone 10 mg tablet 10 mg PO Q4H PRN (Reason: pain) Qty: 168 0RF Rx Instructions: Partial Fill upon patient request. Interventions: ED Discharge Assessment Last Done: 08/25/24 21:14 Discharge Date/Time: 08/25/24 21:45 Print Language: [place]
[2024-08-25] MEDS: Acetaminophen 325 MG TABLET 975 MG PO (17:57)
[2024-08-25] MEDS: Benzonatate 100 MG CAPSULE PO (17:59)
[2024-08-25 18:11] VITALS: BP 134/71; PULSE 93; RESP 17; TEMP 36.5; O2SAT 99
[2024-08-25 18:11] LABS: MANUAL DIFF FLAG NO
[2024-08-25 18:18] LABS: Basophils Absolute Auto 0.1 X10*3/uL (0.0-0.2); Basophils Percent Auto 0.4 % (0-2); Eosinophils Absolute Auto 0.1 X10*3/uL (0.0-0.4); Eosinophils Percent Auto 0.7 % (0-4); Hematocrit 38.3 % (42.0-52.0); Hemoglobin 12.6 g/dl (14.0-18.0); Imm Gran Abs Auto 0.05 X10*3/uL (0.00-0.03); Imm Gran Pct Auto 0.4 % (0.0-0.4); Lymphocytes Absolute Auto 1.2 X10*3/uL (1.2-4.9); Lymphocytes Percent Auto 8.6 % (20-40); Mean Corpuscular HGB Conc 32.9 g/dl (31.0-36.0); Mean Corpuscular Volume 88.2 fL (80.0-98.0); Mean Platelet Volume 10.3 fL (9.4-12.4); Monocytes Percent Auto 7.7 % (2-11); Neutrophils Percent Auto 82.2 % (45-73); Platelet Count 278 X10*3/uL (160-400); Red Blood Count 4.34 X10*6/uL (4.60-5.80); Red Cell Distribution Width 14.3 % (11.0-16.0); White Blood Count 13.4 X10*3/uL (4.8-10.8)
[2024-08-25 18:31] LABS: Alanine Aminotransferase 15 U/L (0-40); Albumin Level 3.9 g/dL (3.5-5.0); Alkaline Phosphatase 109 U/L (39-117); Anion Gap 14 (12-20); Aspartate Amino Transferase 30 U/L (5-37); Blood Urea Nitrogen 21 mg/dL (9-16); Calcium 8.9 mg/dL (8.4-10.2); Carbon Dioxide 27 mmol/L (22-29); Chloride 101 mmol/L (96-108); Estimated Glomerular Filt Rate > 60; Glucose Random 138 mg/dL (60-115); INTERNATIONAL NORM RATIO 1.3 (0.9-1.1); Potassium 4.5 mmol/L (3.3-5.1); Prothrombin Time 14.6 SEC (10.9-12.4); Sodium 137 mmol/L (135-145); Total Protein 7.4 g/dL (6.5-8.0)
--- NOTE | 2024-08-25 19:41 | MHC.EDTECH ---
sofia Conte, would like to be called with updates, #[phone].
[2024-08-25 20:17] VITALS: BP 128/61; PULSE 83; RESP 16; O2SAT 98
[2024-08-25 21:14] VITALS: BP 128/61; PULSE 83; RESP 16; TEMP 36.6; O2SAT 98
== END 2024-08-25 21:45 | disposition home or self-care (01) ==
PROVIDERS: Emergency Provider Emergency Medicine; PCP Internal Medicine
DX: S16.1XXA Strain of muscle, fascia and tendon at neck level, initial encounter (principal); W06.XXXA Fall from bed, initial encounter; Y93.84 Activity, sleeping; Y92.013 Bedroom of single-family (private) house as the place of occurrence of the external cause; Y99.9 Unspecified external cause status; M54.2 Cervicalgia; R29.6 Repeated falls; Z91.81 History of falling; R05.9 Cough, unspecified; R53.1 Weakness; R00.0 Tachycardia, unspecified; I11.0 Hypertensive heart disease with heart failure; I50.9 Heart failure, unspecified; J44.9 Chronic obstructive pulmonary disease, unspecified; E78.5 Hyperlipidemia, unspecified; F17.210 Nicotine dependence, cigarettes, uncomplicated; Z79.02 Long term (current) use of antithrombotics/antiplatelets; Z79.899 Other long term (current) drug therapy
CPT/HCPCS: 36415; 70450; 71045; 72125; 80053; 84484; 85025; 85610; 93005; 99284

== ENCOUNTER → 2024-08-25 16:49 | Outpatient (BNV) | payer MEDICARE, MEDICAID, SELFPAY | PROVIDERS: Emergency Provider Emergency Medicine; PCP Internal Medicine; Visit Provider Internal Medicine Cardiovascular Disease | DX: I49.3 Ventricular premature depolarization (principal); I45.2 Bifascicular block; R00.1 Bradycardia, unspecified | CPT/HCPCS: 93010 ==

== ENCOUNTER → 2024-08-25 17:55 | Outpatient (BNV) | payer MEDICARE, MEDICAID, SELFPAY | PROVIDERS: Emergency Provider Emergency Medicine; PCP Internal Medicine; Visit Provider Radiology Diagnostic Radiology | DX: M50.322 Other cervical disc degeneration at C5-C6 level (principal); G44.309 Post-traumatic headache, unspecified, not intractable; R05.9 Cough, unspecified | CPT/HCPCS: 70450; 71045; 72125 ==

== ENCOUNTER 2024-09-02 10:18 | Outpatient (AMB) | payer MEDICARE, MEDICAID, SELFPAY ==
--- NOTE | 2024-09-02 10:20 | MHC.PC.OV ---
Vital Signs 09/02/24 10:26 Height 5 ft 10 in BP 100/62 Blood Pressure Location Rt brachial Position Sitting Pulse 107 H Pulse Source Pulse Oximeter Temp 98.6 F Temp Source Temporal Artery Scan Pulse Oximetry (%) 97 Oxygen Delivery Method Room Air Intake Visit Reasons: ED F/U [facility] / Fall / Dr. Carrillo's pt. Intake Note: ED follow up after a fall. Patient may have a concussion. Allergies lemon Allergy (Verified 09/02/24 10:23) Anaphylaxis morphine Allergy (Verified 09/02/24 10:23) Anaphylaxis vancomycin Allergy (Verified 09/02/24 10:23) Chest Pain Medication List - Last Reconciled 09/02/24 by TRINI Up albuterol sulfate 90 mcg/actuation 2 puffs inhalation Q6H PRN atorvastatin 40 mg PO DAILY blood sugar diagnostic (FreeStyle Lite Strips) once daily celecoxib 100 mg PO BEDTIME [Chucks disposable under pads As directed] clopidogrel 75 mg PO DAILY [COMMODE daily/continuous] dexlansoprazole 60 mg PO DAILY [Diabetic shoes As directed] famotidine 20 mg PO DAILY fkwdvioipdx-pdquaxnoc-kiyyueue 200-62.5-25 mcg (Trelegy Ellipta) 1 ea inhalation DAILY FreeStyle Lancets (lancets) once daily NS FreeStyle Lite Meter (blood-glucose meter) As directed NS furosemide 40 mg PO DAILY [Hospital Bed Ht- , Wt- 229] ipratropium-albuterol 0.5 mg-3 mg(2.5 mg base)/3 mL 3 mL inhalation TID linezolid 600 mg PO Q12H lisinopril 5 mg PO DAILY naloxone 4 mg/actuation (Narcan) 4 mg intranasal Q2M nebulizer accessories As directed oxycodone 10 mg PO Q4H PRN Oxygen Home Use 2 L during daytime and 4 L at the time of sleep pantoprazole 40 mg PO DAILY@0630 pregabalin 100 mg PO TID rivaroxaban (Xarelto) 10 mg PO DAILY tamsulosin 0.8 mg (2 x 0.4 mg) PO DAILY [[place] seat risers Ht- . Wt 229] triamcinolone acetonide 0.1% 1 appl topical DAILY Xtampza ER (oxycodone myristate) 18 mg PO BID NS Xtampza ER (oxycodone myristate) 27 mg PO BID NS Tobacco use date assessed: 09/02/24 Fall risk assessment: 1 Fall in past year Last assessed Fall Risk: 09/02/24 Dental Screening Dental Screen Date: 09/02/24 Did you have a dental visit in the last 12 months?: No Did you have a dental problem in the last 6 months where you did not have access to dental care?: No Was dental information given to patient?: Patient has dentist HPI HPI Comments History of Present Illness Details 79-year-old male with a past medical history of type 2 diabetes, CAD, CHF, COPD on 2 L of home oxygen, chronic back pain presents for routine ER follow up. He is accompanied by his nephew, Russell. His healthcare proxy, Inés, is on the phone. He has had multiple ER visits and hospitalizations over the past few months. Most recently was seen at [facility] 08/25/24 after unwitnessed fall at home. Diagnosed with strain or confusion of the left side of the neck. Patient had CT head and neck which showed no signs of acute trauma. They endorse mental status changes since this morning. Patient usually is joking and talking and able to walk with his walker. He could not get up off the toilet this morning without them lifting him and had to use a wheelchair to come into the appointment. He is not speaking very much. He appears tired and seems to be dozing off frequently this morning. He seems confused to them. The patient has well-controlled type 2 diabetes with a hemoglobin A1c of 5/8% on 06/27/2024, and he does not take medications for diabetes. Patient is on a chronic pain regimen consisting of Celebrex, oxycodone and Xtampza and Lyrica. ROS: Constitutional: Denies fevers or chills Eyes: When asked if it is difficult to open his eyes he says that it is. Denies blurry vision. ENT: No sore throat, runny nose or ear pain Respiratory: Patient endorses mild shortness of breath. Denies cough. Cardiovascular: No chest pain or palpitations. They endorse chronic lower extremity edema. Gastrointestinal: No vomiting or diarrhea. Denies abdominal pain. Genitourinary: No dysuria, hematuria, urinary frequency. Neurologic: Endorses headache, dizziness, weakness and numbness in both legs.. Musculoskeletal: +neck pain Physical exam: Constitutional: Patient is obtunded. Seated in wheelchair. Head: No visible signs of trauma. Eyes: Pupils are equal, round and reactive to light. Crusty discharge around both eyes. Respiratory: Clear to auscultation. Cardiovascular: S1 S2 regular. II/ systolic murmur. Gastrointestinal: Abdomen soft, non-tender Neurologic: Handgrip strength 4/5 bilaterally. Slow speech which does not sound slurred. Patient's eyes are closed the majority of the visit with head slumped down, and he is dozing off frequently. He opens his eyes when I speak directly to him or grab his hand, and he answers questions with 1-3 word answers. No visible facial drooping. Skin: Superficial abrasion on the right knee Musculoskeletal: Negative midline spinal tenderness. Tenderness of the left paraspinal area and upper trapezius muscle- patient winces with pain. Extremities: Warm and well perfused. Bilateral lower extremity edema. Intact peripheral pulses bilaterally. [facility] Medical History (Updated 09/02/24 @ 11:26 by TRIIN Up) Weakness Mental status alteration COPD (chronic obstructive pulmonary disease) GERD (gastroesophageal reflux disease) Hyperlipidemia Hypertension BPH (benign prostatic hyperplasia) CHF (congestive heart failure) Infrarenal abdominal aortic aneurysm (AAA) without rupture Peripheral vascular disease DDD (degenerative disc disease), lumbosacral Nicotine dependence, cigarettes, uncomplicated Nocturnal hypoxemia PAD (peripheral artery disease) Paroxysmal atrial fibrillation Social History Household Members: Other Household Members Other:: niece and family live upstairs Housing: House Do you presently have visiting nurse or other home services: No Alcohol intake: current Patient Tobacco Use Status: Current everyday Tobacco user Tobacco use type: Cigarette Cigarettes Per Day: 1 Years Smoked: 50 plus e-Cigarette/Vaping Use: Former Use Second Hand Smoke Exposure: No Advance Directives Date on File: 07/01/24 service: No Current occupational status: retired Cognitive needs: No Hearing needs: Yes Vision needs: Yes Questionnaire Thrive Questionnaire Date Thrive assessed: 01/09/24 I am a: Patient What is your living situation today?: I have a steady place to live Within the past 12 months, did the food you bought not last and you didn't have the money to get more?: Sometimes True Within the past 12 months, did you worry whether your food would run out before you got money to buy more?: Sometimes True Do you have trouble paying for medicines?: Yes Do you have trouble getting transportation to medical appointments?: Yes Do you have trouble paying your heating and electricity bill?: Yes Do you have trouble taking care of your child, family member or friend?: Yes Do you have trouble with day-to-day activities such as bathing, preparing meals, shopping, managing finances, etc.?: Yes Are you currently unemployed and looking for a job?: No Are you interested in more education?: No Currently or been in a relationship where the following occur: I choose not to answer THRIVE Score: 4 ANTONIA-7 AMB Questionnaire ANTONIA-7 Date ANTONIA - 7 assessed: 01/09/24 Source: Developed by Drs. Russell Crouch, Tania Raya, Graham Luna and colleagues, with an educational jordan from [employer]. Physical exam (Primary Care) Tobacco/Smoking Status: Tobacco use Status Tobacco use date assessed 09/02/24 09/02/24 10:22 Patient Tobacco Use Status Current everyday Tobacco 09/02/24 10:22 Tobacco use type Cigarette 09/02/24 10:22 e-Cigarette/Vaping Use Former Use 09/02/24 10:22 Thrive Assessment: Date of Thrive Assessment Date Thrive assessed 01/09/24 09/02/24 10:22 Currently or been in a relationship where the following occur: I choose not to answer Coding Level of Care Code Est Pt Level 5 (32272) Complex EM visit Add On G2211 Diagnoses Frequent falls R29.6 Altered mental status, unspecified altered mental status type R41.82 Altered mental status type: unspecified Weakness R53.1 Time Spent (min) 45 Comment Chart review, direct patient care, coordinating care, completing documentation Assessment & Plan Assessment & Plan (1) Frequent falls: Code(s): R29.6 - Repeated falls Category: Medical (2) Mental status alteration: Code(s): R41.82 - Altered mental status, unspecified Category: Medical Qualifiers: Altered mental status type: unspecified Qualified Code(s): R41.82 - Altered mental status, unspecified (3) Weakness: Code(s): R53.1 - Weakness Category: Medical Plan 79-year-old male with complex medical history presented today for routine ER follow up, but he has developed acute mental status changes since this morning and he is obtunded at the visit. Differential includes accidental opioid overdose, TIA/CVA, OH, infection/sepsis, electrolyte disturbance, dehydration, viral illness. Patient is transported by EMS to the hospital for further evaluation.
[2024-09-02 10:26] VITALS: BP 100/62; PULSE 107; TEMP 37; O2SAT 97
--- OUTSIDE RECORDS SUMMARY | 2024-09-02 12:01 | XMS_ITS | Patient Health Record ---
[facility] Organization [place] [facility] [place] Address [address] [place] [address] Care Team Providers Care Medical Librarian Name Role Phone Kiana Mckenna MD Primary Care Provider Raul Romero Unavailable [phone] Allergies Allergen (clinical drug ingredient) Drug/Non Drug [...] DAILY Oral for 30 Days Active Nystatin 485971 UNIT/GM External for 30 Days Active Naloxone HCl 4 MG/0.1ML PLEASE SEE ATTAC HED FOR DETAILED DIRECTIONS Nasal for 30 Days Active Xtampza ER 18 MG Oral for 28 Days Active Lisinopril 10 MG Oral for 90 Days Active Nystatin 463068 UNIT/GM External for 7 Days Active Tamsulosin [...] Problem Acquired hammer toe of right foot (0411144375221592) Other hammer toe(s) (acquired), right foot (M20.41) Active confirmed Problem Acquired hammer toe of left foot (6723180386980013) Other hammer toe(s) (acquired), left foot (M20.42) Active confirmed Problem Bilateral atherosclerosis of arteries of lower limbs (disorder) (68481695557055013 ) Atherosclerosis of creek artery of both lower extremities, with unspecified presence of clinical manifestation (I70.203) Active confirmed Q7(A), Q8(2B), Q9(1B,2 C) Problem Localized, primary osteoarthritis of the ankle and/or foot (117533883) Arthritis of joint of lesser toe, left (M19.072) Active confirmed Problem Localized, primary osteoarthritis of the ankle and/or foot (656683544) Arthritis of joint of lesser toe, right (M19.071) Active confirmed Vital Signs Blood pressure diastolic 65 mm Hg 07/23/2024 Height 5 ft 11inch in 07/23/2024 Blood pressure systolic 130 mm Hg 07/23/2024 Weight 220 lbs 07/23/2024 BMI 30.68 kg/m2 07/23/2024 Procedures Procedure Date Ordered Date Performed Result Body Sit e 73018-JAQT SKIN LESIONS, OVER 4 07/23/2024 N/A 35486-OQLVWXM NAIL, 6 OR MORE 07/23/2024 N/A Encounters Encounter Location Date Provider Diagnosis [facility] [address] [address] 07/23/2024 Raul Tavera Atherosclerosis of creek artery of both lower extremities, with unspecified [...] 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) 07/23/2024 Atherosclerosis of creek artery of both lower extremities, with unspecified [...] Treatment Pending Test Test Name Order Date [id number] NAIL, 6 OR MORE 07/23/2024 75858-YIZM SKIN LESIONS, OVER 4 07/24/19 Next Appt Details Provider Name:Raul Tavera , 10/22/2024 09:30:00 AM, [address] [place], [address], Insurance Providers Payer Name Payer Address Payer Phone Subscriber Number Group Number Insured Name Patient Relationship to Insured Coverage Start Date Coverage End Date [employer] Medicare Adv-[id number] [address] [address] [place] [address] [id number] Russell Saeed Self - patient is the insured Medical (General) History Medical History History ICD Code asthma Back,Hip,and Knee pain Broken bones Headaches/Migraines Heart disease Hiatal hernia Numbness (Neuropathy) Poor circulation Reflux ( GERD) Stomach ulcer Ulcer (Skin) Vascular phlebitis (clots) Measles Mumps Chicken pox Joint implants/screws Hypertension Hypercholesterolemia Surgical History Surgery Date(Month/Year) back surgery 2014 Hospital[place] Reason [place] [facility] [place]
== END 2024-09-02 11:30 | disposition home or self-care (01) ==
LOC: HO.HMCFM 10:18
PROVIDERS: PCP Internal Medicine; Visit Provider Physician Assistant Medical
DX: R29.6 Repeated falls (principal); R41.82 Altered mental status, unspecified; R53.1 Weakness

== ENCOUNTER → 2024-09-02 10:18 | Outpatient (BNVA) | payer MEDICARE, MEDICAID, SELFPAY | PROVIDERS: PCP Internal Medicine; Visit Provider Physician Assistant Medical | DX: E11.9 Type 2 diabetes mellitus without complications (principal); I25.10 Atherosclerotic heart disease of native coronary artery without angina pectoris; I50.9 Heart failure, unspecified; J44.9 Chronic obstructive pulmonary disease, unspecified; R29.6 Repeated falls; R41.82 Altered mental status, unspecified; R53.1 Weakness; F17.210 Nicotine dependence, cigarettes, uncomplicated; Z99.81 Dependence on supplemental oxygen | CPT/HCPCS: 99212 ==

== ENCOUNTER 2024-10-07 14:48 | Outpatient (AMB) | payer MEDICARE, MEDICAID, SELFPAY ==
--- OUTSIDE RECORDS SUMMARY | 2024-10-07 14:52 | XMS_ITS | Patient Health Record ---
[facility] [place] Address [address] [place] [address] Care Team Providers Care Discharge Rn Name Role Phone Kiana Mckenna MD Primary Care Provider Raul Romero Unavailable [phone] Allergies Allergen (clinical drug ingredient) Drug/Non Drug Allergy documented on EMR Reaction Allergy Type Onset Date Status ibuprofen Advil Throw up Drug Allergy Active Aleve Throw up Drug Allergy Active Motrin Throw up Drug Allergy Active Reason For Referral No Information Medications Medication SIG (Take, Route, Frequency, Duration) Notes Start Date End Date Status Furosemide 20 MG Oral; Duration: 30 Days Active Amoxicillin-Pot Clavulanate 875-125 MG Oral; Duration: 13 Days Acti ve Ipratropium-Albuterol 0.5-2.5 (3) MG/3ML Inhalation; Duration: 20 Days Active Linezolid 600 MG TAKE 1 TABLET BY IFRAH TH EVERY 12 HOURS Oral; Duration: 13 Days Active Cyclobenzaprine HCl 10 MG Oral; Duration: 30 Days Active Trelegy Ellipta 200-62.5-25 MCG/ACT USE 1 INHALATION BY MOUTH DIRECTED DAILY Inhalation; Duration: 30 Days Active Pregabalin 100 MG TAKE 1 CAPSULE BY MO UTH 3 TIMES A DAY Oral; Duration: 30 Days Active oxyCODONE HCl 5 MG Oral; Duration: 28 Days Active Famotidine 20 MG TAKE 1 TABLET BY IFRAH TH DAILY Oral; Duration: 90 Days Active Pantoprazole Sodium 40 MG TAKE 1 TABLET BY MOUTH DAILY AT 630 Oral; Duration: 90 Days Active Clopidogrel Bisulfate 75 MG TAKE 1 TABLE T BY MOUTH DAILY Oral; Duration: 30 Days Active Nystatin 389488 UNIT/GM External; Durati on: 30 Days Active Naloxone HCl 4 MG/0.1ML PLEASE SEE ATTAC HED FOR DETAILED DIRECTIONS Nasal; Duration: 30 Days Active Xtampza ER 18 MG Oral; Duration: 28 Days Active Lisinopril 10 MG Oral; Duration: 90 Days Active Nystatin 905787 UNIT/GM External; Durati on: 7 Days Active Tamsulosin HCl 0.4 MG Oral; Duration: 90 Days Active predniSONE 10 MG PLEASE SEE ATTACHED FOR DETAILED DIRECTIONS Oral; Duration: 15 Days Active Triamcinolone Acetonide 0.1 % USE 1 APPLICATION TOPICALLY DAILY TO RASH OF THE HAND External; Duration: 14 Days Active Xarelto 10 MG Oral; Duration: 30 Days Active Magnesium 250 MG 1 tablet with a meal Orally Once a day 07/16/2024 Active hydrOXYzine HCl 25 MG TAKE 1 TABLET BY M OUTH THREE TIMES A DAY FOR ITCH Oral; Duration: 90 Days Active Atorvastatin Calcium 40 MG Oral; Duration: 30 Days Active Celecoxib 100 MG Oral; Duration: 30 Days Active Dexlansoprazole 60 MG Oral; Duration: 30 Days Active Social History Tobacco Use: [...] Problem Acquired hammer toe of right foot (5247601171416024) Other hammer toe(s) (acquired), right foot (M20.41) Active confirmed Problem Acquired hammer toe of left foot (4439020324196605) Other hammer toe(s) (acquired), left foot (M20.42) Active confirmed Problem Bilateral atherosclerosis of arteries of lower limbs (disorder) (42869856751292933 ) Atherosclerosis of [place] artery of both lower extremities, with unspecified presence of clinical manifestation (I70.203) Active confirmed Q7(A), Q8(2B), Q9(1B,2 C) Problem Localized, primary osteoarthritis of the ankle and/or foot (529082343) Arthritis of joint of lesser toe, left (M19.072) Active confirmed Problem Localized, primary osteoarthritis of the ankle and/or foot (738154329) Arthritis of joint of lesser toe, right (M19.071) Active confirmed Vital Signs Blood pressure diastolic 65 mm Hg 07/23/2024 Height 5 ft 11inch in 07/23/2024 Blood pressure systolic 130 mm Hg 07/23/2024 Weight 220 lbs 07/23/2024 BMI 30.68 kg/m2 07/23/2024 Procedures Procedure Date Ordered Date Performed Result Body Sit e 89395-GIKXSFI NAIL, 6 OR MORE 07/23/2024 N/A 61590-PHBW SKIN LESIONS, OVER 4 07/23/2024 N/A Encounters Encounter Location Date Provider Diagnosis [facility] [address] [address] 07/23/2024 Raul Tavera Atherosclerosis of [place] artery of both lower extremities, with unspecified [...] 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) 07/23/2024 Atherosclerosis of [place] artery of both lower extremities, with unspecified [...] Treatment Pending Test Test Name Order Date [id number] NAIL, 6 OR MORE 07/23/2024 68571-UTMJ SKIN LESIONS, OVER 4 07/24/19 Next Appt Details Provider Name:Raul Tavera , 10/22/2024 09:30:00 AM, [address] [place], [address], Insurance Providers Payer Name Payer Address Payer Phone Subscriber Number Group Number Insured Name Patient Relationship to Insured Coverage Start Date Coverage End Date [employer] Medicare [id number] [address] [address] [place] [address] [id number] Russell Saeed Self - patient is the insured Medical (General) History Medical History History ICD Code asthma Back,Hip,and Knee pain Broken bones Headaches/Migraines Heart disease Hiatal hernia Numbness (Neuropathy) Poor circulation Reflux ( GERD) Stomach ulcer Ulcer (Skin) Vascular phlebitis (clots) Measles Mumps Chicken pox Joint implants/screws Hypertension Hypercholesterolemia Surgical History Surgery Date(Month/Year) back surgery 2014 [place] Reason Date[place] [facility] [place]
--- NOTE | 2024-10-07 14:56 | MHC.PC.OV ---
Vital Signs 10/07/24 15:05 BP 98/66 Blood Pressure Location Rt brachial Position Sitting Respiration 14 Pulse 81 Pulse Source Pulse Oximeter Temp 98 F Temp Source Oral Pulse Oximetry (%) 96 Oxygen Delivery Method Room Air Intake Visit Reasons: Discharge Follow-Up Rehab Intake Note: Hospital follow up. Pt prescribed cyclobenzaprine, niece believes he should not be taking. Needs refill on albuterol inhaler Accompanied by: Family/Other Allergies lemon Allergy (Verified 10/07/24 15:11) Anaphylaxis morphine Allergy (Verified 10/07/24 15:11) Anaphylaxis vancomycin Allergy (Verified 10/07/24 15:11) Chest Pain Medication List - Last Reconciled 10/07/24 by GILES Andersen- albuterol sulfate 90 mcg/actuation 2 puffs inhalation Q6H PRN atorvastatin 40 mg PO DAILY blood sugar diagnostic (FreeStyle Lite Strips) once daily [Chucks disposable under pads As directed] clopidogrel 75 mg PO DAILY [COMMODE daily/continuous] cyclobenzaprine 5 mg PO TID PRN [Diabetic shoes As directed] wqzncbgselw-skqiphamb-gvdxpaym 200-62.5-25 mcg (Trelegy Ellipta) 1 ea inhalation DAILY FreeStyle Lancets (lancets) once daily NS FreeStyle Lite Meter (blood-glucose meter) As directed NS furosemide 40 mg PO DAILY [Hospital Bed Ht- ', Wt- 229] ipratropium-albuterol 0.5 mg-3 mg(2.5 mg base)/3 mL 3 mL inhalation TID naloxone 4 mg/actuation (Narcan) 4 mg intranasal Q2M nebulizer accessories As directed oxycodone 5 mg PO Q4H PRN Oxygen Home Use 2 L during daytime and 4 L at the time of sleep pantoprazole 40 mg PO DAILY@0630 potassium chloride ER (Klor-Con) 10 mEq PO DAILY pregabalin 100 mg PO BID tamsulosin 0.4 mg PO DAILY [[place] seat risers Ht- . Wt 229] triamcinolone acetonide 0.1% 1 appl topical DAILY Xtampza ER (oxycodone myristate) 18 mg PO BID NS Tobacco use date assessed: 10/07/24 Fall risk assessment: 2 + Falls in past year Last assessed Fall Risk: 10/07/24 Dental Screening Dental Screen Date: 09/02/24 HPI HPI Comments History of Present Illness Details Here today for a Transitional Care Management Visit Discharge summary reviewed. 79-year-old male with history of paroxysmal atrial fibrillation anticoagulated with Eliquis, peripheral arterial disease, BPH, heart failure reduced ejection fraction, history of type 2 diabetes per patient, COPD with chronic hypoxemic respiratory failure, GERD, hyperlipidemia, chronic low back pain, with history of osteomyelitis right great toe s/p amputation Admission Date: 09/02/2024 Discharge Date: FROM REHAB 09/29/24 Hospital: [facility] [place] [address] [place] [address] Date of interactive contact with Nurse Navigator: as documented in chart Pending diagnostic tests/treatments: N Pending consults: N DME: N PT/OT/ORACLE MANUFACTURING CONSULTANT: [place] Medications reconciled & updated. During todays TCM visit, the d/c summary was reviewed, along with the need for or follow-up on pending diagnostic tests and treatments, as necessary interaction with other health career discovery teacher who will assume or reassume care of the beneficiary?s system-specific problems was done or is being worked on, education was provided to the beneficiary, family, guardian, and/or caregiver, referrals to establish or re-establish and arrange needed community resources we completed, assistance in scheduling required follow-up with community providers and services & finally updated medication list given to patient/caregiver History of Present Illness - The patient is a 79-year-old male presenting for transitional care management. - Issues with medication management in rehab including oxycodone and Lyrica. - c/o Severe bilat knee osteoarthritis impacting mobility. [place] to [place] [facility]. Using Wheelchair - Improvement of dizziness noted post-discharge. No falls. - Niece helping manage his meds. sparing use of prn oxycodone 5mg; taking Xtampza ER 18mg twice per day at 0900 and 2100; reduced lyrica from 100mg TID to 100 mg BID at 12pm and 1800. Has not used cyclobenzaprine. More wakeful. No more dizziness. cont w pain but managing. - Reports chronic SOB worse w/ exertion - has chronic heart conditions, was referred to [facility] [place] but missed appt Asking for new referral today. Review of Systems - Musculoskeletal: Reports right knee instability and left knee postoperative complication. Reports chronic back issues. - Neurological: Denies current dizziness; reports past episodes. - Cardiovascular: Reports previous chest pain manageable with nitroglycerin. Needs new RX. Angina is chronic. - Psychiatric: Reports depressive symptoms impacting quality of life. Exam: General: AOx3, no acute distress Neck no JVD Resp: Lungs clear dim throughout, became dizzy w/ deep breathing, resolved within seconds w/o chest pain CVS: regular rhythm, 2/6 murmur Extremities: Right leg s/p great toe amputation, sitting in w/c, chronic hemosiderin staining BLE Psych/Neuro: Mood and affect appropriate Discussion Notes I discussed with the patient the need for careful management of medication post-discharge given the previous challenges faced in rehabilitation with pain and medication management. We reviewed the adjusted medication strategy, including oxycodone and Lyrica, and the necessity of avoiding overuse of 'as needed' medications to alleviate risk levels. We deliberated about continuing pain management within safety guidelines, referencing recent history and discussing knee joint instability and pain linked to osteoarthritis. Ultimately, the decision was made to pursue orthopedic consultation. The patient's cardiovascular health was assessed. Follow-up with cardiology and orthopedic specialists was recommended, and arrangements to visit these specialists have been made. Ongoing monitoring of symptoms and medication efficacy was emphasized, with anticipation of re-evaluation closer to the upcoming appointment with Dr. Carrillo. We reviewed appropriate use and warning indications for nitroglycerin related to episodic chest pain. Patient consented to follow the discussed care plan and agreed to a weight and fluid management strategy according to symptoms. Assessment and Plan 1. Transitional Care Management - Review and manage medication adherence post-discharge. - Cont to take meds as directed 2. Bilat Knee Osteoarthritis - Pursue orthopedic consultation. 3. SOB and dizziness Repeat labs and CXR Cards referral Patient Instructions - Take medications as directed, adhering to times discussed. - Schedule and attend orthopedic consultation for knee evaluation. - Monitor daily fluid intake and output; report any sudden changes. - Begin gentle exercises as tolerated; avoid full weight-bearing exercises until cleared. - Monitor symptoms of dizziness; take precautions with positioning. - Seek medical attention if experiencing unrelievable chest pain or other concerning symptoms. - Follow-up with cardiology as planned and consider advanced directives. Consent Patient was informed and verbally consented to the use of an ambient scribe for clinic note documentation during this visit. Total time spent caring for the patient today was 70 minutes. This includes time spent before the visit reviewing the chart, time spent during the visit, and time spent after the visit on documentation, reviewing laboratory results, diagnostic imaging, medications, performing a medically necessary evaluation, counseling on diagnoses, care coordination, ordering appropriate tests, ordering appropriate medications, review of tests performed by other providers, reporting test results with the patient, communication with other healthcare providers. ON LICENSE OF [facility] Medical History (Updated 10/07/24 @ 16:43 by Avril Brothers [facility]) BPH (benign prostatic hyperplasia) CHF (congestive heart failure) COPD (chronic obstructive pulmonary disease) DDD (degenerative disc disease), lumbosacral GERD (gastroesophageal reflux disease) Hyperlipidemia Hypertension Infrarenal abdominal aortic aneurysm (AAA) without rupture Mental status alteration Nicotine dependence, cigarettes, uncomplicated Nocturnal hypoxemia PAD (peripheral artery disease) Paroxysmal atrial fibrillation Peripheral vascular disease Weakness Social History (Updated 09/02/24 @ 10:25 by Alejandra Montalvo MA) Household Members: Other Household Members Other:: niece and family live upstairs Housing: House Do you presently have visiting nurse or other home services: No Alcohol intake: current Patient Tobacco Use Status: Current everyday Tobacco user Tobacco use type: Cigarette Cigarettes Per Day: 1 Years Smoked: 50 plus e-Cigarette/Vaping Use: Former Use Second Hand Smoke Exposure: No Advance Directives Date on File: 07/01/24 service: No Current occupational status: retired Cognitive needs: No Hearing needs: Yes Vision needs: Yes Questionnaire PHQ-9 Over the last 2 weeks, how often have you been bothered by any of the following problems? 1. Little interest or pleasure in doing things: not at all 2. Feeling down, depressed, or hopeless: not at all 3. Trouble falling or staying asleep, or sleeping too much: not at all 4. Feeling tired or having little energy: not at all 5. Poor appetite or overeating: not at all 6. Feeling bad about yourself - or that you are a failure or have let yourself or your family down: not at all 7. Trouble concentrating on things, such as reading the newspaper or watching television: not at all 8. Moving or speaking so slowly that other people could have noticed. Or the opposite - being so fidgety or restless that you have been moving around a lot more than usual: not at all 9. Thoughts that you would be better off or of hurting yourself in some way: not at all Total score: 0 Depression Screening Interpretation: Negative Depression Screening Done: Yes 59706 - PHQ-9 Billing: Yes Source: Developed by Drs. Russell Crouch, Tania Raya, Graham Luna and colleagues, with an educational jordan from [employer] Thrive Questionnaire Date Thrive assessed: 10/07/24 I am a: Parent/Caregiver What is your living situation today?: I have a steady place to live Within the past 12 months, did the food you bought not last and you didn't have the money to get more?: Never true Within the past 12 months, did you worry whether your food would run out before you got money to buy more?: Never true Do you have trouble paying for medicines?: No Do you have trouble getting transportation to medical appointments?: No Do you have trouble paying your heating and electricity bill?: No Do you have trouble taking care of your child, family member or friend?: No Do you have trouble with day-to-day activities such as bathing, preparing meals, shopping, managing finances, etc.?: No Are you currently unemployed and looking for a job?: No Are you interested in more education?: No Please select the resources that you would like help with: None Currently or been in a relationship where the following occur: No concerns reported THRIVE Score: 0 AUDIT C Alcohol Use Questionnaire (AUDIT-C) 1. How often do you have a drink containing alcohol?: Never Total Score: 0 Score Reviewed/Action Taken: Yes ANTONIA-7 AMB Questionnaire ANTONIA-7 Date ANTONIA - 7 assessed: 10/07/24 Feeling nervous, anxious, or on edge: 0 = Not at all Not being able to stop or control worryin = Not at all Worrying too much about different things: 0 = Not at all Trouble relaxin = Not at all Being so restless that it is hard to sit still: 0 = Not at all Becoming easily annoyed or irritable: 0 = Not at all Feeling afraid as if something awful might happen: 0 = Not at all Total ANTONIA-7 score (0-4 normal; 5-9 mild; 10-14 moderate; 15-21 severe): 0 Source: Developed by Drs. Russell Crouch, Tania Raya, Graham Luna and colleagues, with an educational jordan from [employer] ANTONIA-7 Assessment Billing ANTONIA-7 Assessment Tool: ANTONIA-7 Assessment 07066 Physical exam (Primary Care) Vital Signs: Last Vital Signs Temp 98 F 10/07/24 15:05 Pulse 81 10/07/24 15:05 Resp 14 10/07/24 15:05 BP 98/66 10/07/24 15:05 Pulse Ox 96 10/07/24 15:05 Oxygen Delivery Method Room Air 10/07/24 15:05 Tobacco/Smoking Status: Tobacco use Status Tobacco use date assessed 10/07/24 10/07/24 15:04 Patient Tobacco Use Status Current everyday Tobacco 10/07/24 14:57 Tobacco use type Cigarette 10/07/24 14:57 e-Cigarette/Vaping Use Former Use 10/07/24 14:57 Are you ready to quit: No Tobacco cessation counseling provided: Yes Items discussed: Nicotine replacement, QuitWorks and Other Relapse Prevention: discussed the importance of a supportive environment, discussed extending NRT, discussed negative mood or depression after quitting, weight gain after smoking is common and discussed dietary, exercise and/or lifestyle changes Number of minutes spent counselin CPT code: 75103 - 4-10 Minutes PHQ-9: PHQ-9 Score PHQ-9: Total score 0 10/07/24 15:09 Depression Screening Interpretation: Negative Thrive Assessment: Date of Thrive Assessment Date Thrive assessed 01/09/24 10/07/24 14:57 Currently or been in a relationship where the following occur: No concerns reported Coding Level of Care Code TCM High MDM <= 7 Days Complex EM visit Add On G2211 Diagnoses Hospital discharge follow-up Z09 Primary osteoarthritis of both knees M17.0 Osteoarthritis type: primary Primary hypertension I10 Hypertension type: primary hypertension 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 Heart failure type: combined systolic and diastolic Heart failure chronicity: chronic PAD (peripheral artery disease) I73.9 Bifascicular block I45.2 Nonrheumatic aortic valve stenosis I35.0 Cardiac valve disease etiology: nonrheumatic Multifocal pneumonia J18.8 DONALDSON (dyspnea on exertion) R06.09 Dizziness R42 High risk medication use Z79.899 Nicotine dependence, cigarettes, uncomplicated F17.210 Additional Codes PHQ-9 - 47832 - PHQ-9 Billing: Yes ([id number]) ANTONIA-7 Assessment Billing - ANTONIA-7 Assessment Tool: ANTONIA-7 Assessment 82310 ([id number]) Vital Signs *Quality* - CPT code: 14308 - 4-10 Minutes ([id number]) Assessment & Plan Assessment & Plan (1) Hospital discharge follow-up: Code(s): Z09 - Encounter for follow-up examination after completed treatment for conditions other than malignant neoplasm Category: Medical (2) Osteoarthritis of knees, bilateral: Code(s): M17.0 - Bilateral primary osteoarthritis of knee Category: Medical Qualifiers: Osteoarthritis type: primary Qualified Code(s): M17.0 - Bilateral primary osteoarthritis of knee (3) Hypertension: Code(s): I10 - Essential (primary) hypertension Category: Medical Qualifiers: Hypertension type: primary hypertension Qualified Code(s): I10 - Essential (primary) hypertension (4) CHF (congestive heart failure): Code(s): I50.9 - Heart failure, unspecified Category: Medical Qualifiers: Heart failure type: combined systolic and diastolic Heart failure chronicity: chronic Qualified Code(s): I50.42 - Chronic combined systolic (congestive) and diastolic (congestive) heart failure (5) PAD (peripheral artery disease): Comment: 2021 - right lower extremity angiogram x2 in [place] 2021 - right great toe amputation and [place] Code(s): I73.9 - Peripheral vascular disease, unspecified Category: Medical (6) Bifascicular block: Code(s): I45.2 - Bifascicular block Category: Medical (7) Aortic stenosis: Code(s): I35.0 - Nonrheumatic aortic (valve) stenosis Category: Medical Qualifiers: Cardiac valve disease etiology: nonrheumatic Qualified Code(s): I35.0 - Nonrheumatic aortic (valve) stenosis (8) Multifocal pneumonia: Code(s): J18.8 - Other pneumonia, unspecified organism Category: Medical (9) DONALDSON (dyspnea on exertion): Code(s): R06.09 - Other forms of dyspnea Category: Medical (10) Dizziness: Code(s): R42 - Dizziness and giddiness Category: Medical (11) High risk medication use: Code(s): Z79.899 - Other custodial (current) drug therapy Category: Medical (12) Nicotine dependence, cigarettes, uncomplicated: Comment: Smoking Cessation How to Quit There are a lot of ways to quit smoking and many resources to help you. Family members, friends, and co-workers may be supportive or encouraging, but to be successful the desire and commitment to quit must be your own. Most people who have been able to successfully quit smoking made at least one unsuccessful attempt in the past. Try not to view past attempts to quit as failures, but rather as learning experiences. Stopping smoking or using smokeless tobacco is difficult, but anyone can do it. Know the symptoms to expect when you stop. Common symptoms include: ? An intense craving for nicotine ? Anxiety, tension, restlessness, frustration, or impatience ? Difficulty concentrating ? Drowsiness or trouble sleeping, as well as bad dreams and nightmares ? Drowsiness and trouble sleeping ? Headaches ? Increased appetite and weight gain ? Irritability or depression How severe your symptoms are depends on how long you smoked and how many cigarettes you smoked each day. Feel ready to quit? ? First and foremost, set a quit date and quit completely on that day. Before your quit date, you may begin reducing your cigarette use. But remember, there is no safe level of cigarette smoking. ? List the reasons why you want to quit. Include both short- and long-term benefits. ? Identify the times you are most likely to smoke. For example, do you tend to smoke when feeling stressed or down? When out at night with friends? While drinking coffee or alcohol? When bored? While driving? Right after a meal or sex? During a work break? While watching TV or playing cards? When you are with other smokers? ? Let all of your friends, family, and co-workers know of your plan to stop smoking and your quit date. Just being aware that they know what you're going through can be helpful, especially when you are grumpy. ? Get rid of all your cigarettes just before the quit date, and clean out anything that smells like smoke, such as clothes and furniture. Make a plan about what you will do instead of smoking at those times when you are most likely to smoke. ? Be as specific as possible. For example, drink tea instead of coffee -- tea may not trigger the desire for a cigarette. Or, take a walk when you feel stressed. ? Remove ashtrays and cigarettes from the car. Place pretzels or hard candies there instead. Pretend-smoke with a straw. ? Find activities that focus your hands and mind but are not taxing or fattening. Computer games, solitaire, knitting, sewing, and crossword puzzles may help. ? If you normally smoke after eating, find other ways to end a meal. Play a tape or CD, eat a piece of fruit, get up and make a phone call, or take a walk (a good distraction that also guadarrama calories). Make other changes in your lifestyle. ? Change your daily schedule and habits. Eat at different times or eat several small meals instead of three large ones. Sit in a different chair or even a different room. ? Satisfy your oral habits by eating celery or other low-calorie snack, chewing sugarless gum, or sucking on a cinnamon stick. ? Go to public places and restaurants where smoking is prohibited or restricted. ? Eat regular meals and don't eat too much candy or sweet things. ? Get more exercise. Take walks or ride a bike. Exercise helps relieve the urge to smoke. Set short-term quitting goals and reward yourself when you meet them. ? Every day, put the money you normally spend on cigarettes in a jar. Then buy something pleasurable after a period of time. ? Try not to think about all the days ahead you will need to avoid smoking. Take it one day at a time. ? Even one puff or one cigarette will make your desire for more cigarettes even stronger. However, it is normal to make mistakes. So even if you have one cigarette, you don't need to take the next one. Other tips to help you quit smoking and stick to it: ? Enroll in a smoking cessation program (hospitals, health departments, community centers, and work sites often offer programs). Learn about self-hypnosis or other techniques. ? Ask your health care provider about prescription medications that are safe and appropriate for you. ? Find out about nicotine patches, gum, and sprays. The [place] [employer]'s web site -- www.cancer.org -- is an excellent resource for smokers who are trying to quit, and the [employer] [place] [employer] can help some smokers kick the habit. Above all, don't get discouraged if you aren't able to quit smoking the first time. Nicotine addiction is a hard habit to break. Try something different next time. Develop new strategies, and try again. Many people take several attempts to finally kick the habit. Code(s): F17.210 - Nicotine dependence, cigarettes, uncomplicated Category: Medical Plan . Orders: Orders XR chest 2V Today MEGAN Andersen I50.42 - Chronic combined systolic (congestive) and diastolic (congestive) heart failure Comprehensive Met. Panel Today MEGAN Andersen I50.42 - Chronic combined systolic (congestive) and diastolic (congestive) heart failure Complete Blood Count no Diff Today MEGAN Andersen I50.42 - Chronic combined systolic (congestive) and diastolic (congestive) heart failure B Type Natriuretic Peptide Today MEGAN Andersen I50.42 - Chronic combined systolic (congestive) and diastolic (congestive) heart failure Referrals Orthopedics Referral MEGAN Andersen M17.0 - Bilateral primary osteoarthritis of knee Cardiology Referral MEGAN Andersen E78.5 - Hyperlipidemia, unspecified, I10 - Essential (primary) hypertension, I45.2 - Bifascicular block, I50.42 - Chronic combined systolic (congestive) and diastolic (congestive) heart failure, I73.9 - Peripheral vascular disease, unspecified Medications: New nitroglycerin do not exceed 3 doses per episode 0.3 mg sublingual Q5M PRN 30 tabs 0RF chest pain MEGAN Andersen dqkvevgscrf-gyutowubd-brmwqvhd 200-62.5-25 mcg (Trelegy Ellipta) 1 ea inhalation DAILY 60 ea 2RF MEGAN Andersen Changed From tamsulosin 0.8 mg (2 x 0.4 mg) PO DAILY 180 caps 3RF To tamsulosin 0.4 mg PO DAILY Kiana Carrillo MD From pregabalin 100 mg PO TID 270 caps 3RF To pregabalin 100 mg PO BID Kiana Carrillo MD Refilled albuterol sulfate 90 mcg/actuation 2 puffs inhalation Q6H PRN 8.5 grams 0RF shortness of breath or wheezing Avril Brothers, RETAIL CUSTOMER SERVICE REPRESENTATIVE-[employer]
[2024-10-07 15:05] VITALS: BP 98/66; PULSE 81; RESP 14; TEMP 36.6; O2SAT 96
== END 2024-10-07 16:01 | disposition home or self-care (01) ==
LOC: HO.HMCFM 14:49
PROVIDERS: PCP Internal Medicine; Visit Provider Nurse Practitioner Family
DX: I50.42 Chronic combined systolic (congestive) and diastolic (congestive) heart failure (principal); M17.0 Bilateral primary osteoarthritis of knee; I10 Essential (primary) hypertension; I73.9 Peripheral vascular disease, unspecified; Z09 Encounter for follow-up examination after completed treatment for conditions other than malignant neoplasm; I45.2 Bifascicular block; I35.0 Nonrheumatic aortic (valve) stenosis; J18.8 Other pneumonia, unspecified organism; R06.09 Other forms of dyspnea; R42 Dizziness and giddiness; Z79.899 Other long term (current) drug therapy; F17.210 Nicotine dependence, cigarettes, uncomplicated

== ENCOUNTER → 2024-10-07 14:48 | Outpatient (BNVA) | payer MEDICARE, MEDICAID, SELFPAY | PROVIDERS: PCP Internal Medicine; Visit Provider Nurse Practitioner Family | DX: Z09 Encounter for follow-up examination after completed treatment for conditions other than malignant neoplasm (principal); M17.0 Bilateral primary osteoarthritis of knee; I11.0 Hypertensive heart disease with heart failure; I50.42 Chronic combined systolic (congestive) and diastolic (congestive) heart failure; I73.9 Peripheral vascular disease, unspecified; I45.2 Bifascicular block; I35.0 Nonrheumatic aortic (valve) stenosis; J18.8 Other pneumonia, unspecified organism; R06.09 Other forms of dyspnea; R42 Dizziness and giddiness; F17.210 Nicotine dependence, cigarettes, uncomplicated; Z79.899 Other long term (current) drug therapy; Z71.6 Tobacco abuse counseling | CPT/HCPCS: 96127; 99212 ==

== ENCOUNTER 2024-10-15 10:49 | Outpatient (REF) | payer MEDICARE, MEDICAID, SELFPAY ==
--- NOTE | ~2024-10-15 | XR_ITS ---
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 COMPARISON: 08/17/2024, 07/11/2024, dating back to 03/29/2024. TECHNIQUE: 2 views of the chest were obtained. FINDINGS: The cardiac, hilar, and mediastinal contours are normal. Mild aortic mural calcification. The lungs are clear bilaterally. There is no pneumothorax or pleural effusion. There is no focal osseous or soft tissue abnormality. There are degenerative changes throughout the spine. XR/XR chest 2V IMPRESSION: No active pulmonary disease. Electronically signed by: Sunny Avendano MD 10/15/2024 11:24 AM EDT RP
--- OUTSIDE RECORDS SUMMARY | 2024-10-15 11:23 | XMS_ITS | Patient Health Record ---
Author Organization [facility] laz CallDe Lancey Address [address] [place] [address] Care Team Providers Care Recycling Assistant Name Role Phone Kiana Mckenna MD Primary Care Provider Raul Romero Unavailable [phone] Allergies Allergen (clinical drug ingredient) Drug/Non Drug [...] DAILY Oral; Duration: 30 Days Active Nystatin 975063 UNIT/GM External; Durati on: 30 Days Active Naloxone HCl 4 MG/0.1ML PLEASE SEE ATTAC [facility] FOR DETAILED DIRECTIONS Nasal; Duration: 30 Days Active Xtampza ER 18 MG Oral; Duration: 28 Days Active Lisinopril 10 MG Oral; Duration: 90 Days Active Nystatin 474220 UNIT/GM External; Durati on: 7 Days Active [...] Problem Acquired hammer toe of right foot (3091518024419566) Other hammer toe(s) (acquired), right foot (M20.41) Active confirmed Problem Acquired hammer toe of left foot (4554342394626908) Other hammer toe(s) (acquired), left foot (M20.42) Active confirmed Problem Bilateral atherosclerosis of arteries of lower limbs (disorder) (47222510081568516 ) Atherosclerosis of tanana artery of both lower extremities, with unspecified presence of clinical manifestation (I70.203) Active confirmed Q7(A), Q8(2B), Q9(1B,2 C) Problem Localized, primary osteoarthritis of the ankle and/or foot (820798964) Arthritis of joint of lesser toe, left (M19.072) Active confirmed Problem Localized, primary osteoarthritis of the ankle and/or foot (107135918) Arthritis of joint of lesser toe, right (M19.071) Active confirmed Vital Signs Blood pressure diastolic 65 mm Hg 07/23/2024 Height 5 ft 11inch in 07/23/2024 Blood pressure systolic 130 mm Hg 07/23/2024 Weight 220 lbs 07/23/2024 BMI 30.68 kg/m2 07/23/2024 Procedures Procedure Date Ordered Date Performed Result Body Sit e 08331-[id number] NAIL, 6 OR MORE 07/23/2024 N/A 52613-QVPZ SKIN LESIONS, OVER 4 07/23/2024 N/A Encounters Encounter Location Date Provider Diagnosis [facility] [address] [address] 07/23/2024 Raul Tavera Atherosclerosis of tanana artery of both lower extremities, with unspecified [...] 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) 07/23/2024 Atherosclerosis of tanana artery of both lower extremities, with unspecified [...] Treatment Pending Test Test Name Order Date [id number] NAIL, 6 OR MORE 07/23/2024 [id number] SKIN LESIONS, OVER 4 07/24/19 Next Appt Details Provider Name:Raul Tavera , 10/22/2024 09:30:00 AM, [address] [place], [address], Insurance Providers Payer Name Payer Address Payer Phone Subscriber Number Group Number Insured Name Patient Relationship to Insured Coverage Start Date Coverage End Date [employer] Medicare [id number] [address] [address] [place] [address] [id number] Russell Saeed Self - patient is the insured Medical (General) History Medical History History ICD Code asthma Back,Hip,and Knee pain Broken bones Headaches/Migraines Heart disease Hiatal hernia Numbness (Neuropathy) Poor circulation Reflux ( GERD) Stomach ulcer Ulcer (Skin) Vascular phlebitis (clots) Measles Mumps Chicken pox Joint implants/screws Hypertension Hypercholesterolemia Surgical History Surgery Date(Month/Year) back surgery 2014 Hospitalization History Reason Date(Month/[place] [facility] [place]
--- OUTSIDE RECORDS SUMMARY | 2024-10-15 11:23 | XMS_ITS | Clinical Summary ---
Author Organization [facility] Address [facility] [place] [address] Care Team Providers Care Wad Lubricator Name Role Phone Kashif, Maida Raheem KU Primary Care Provider + Allergies Active Allergy Reactions Criticality Noted Date Comments Morphine Anaphylaxis High 12/09/2023 Opioids - Morphine Analogues Angioedema High 024 Medications aspirin 81 mg chewable tablet Take 81 mg by mouth daily. Active multivitamin with minerals (Thera M) 9 mg iron-400 mcg Tablet Take 1 tablet by mouth daily. 30 tablet 4 Active clopidogreL (Plavix) 75 mg tablet Take 1 tablet by mouth daily. 90 tablet 1 4 Active dexlansoprazole (Dexilant) [address] capsule Take 1 capsule by mouth 2 times daily. 60 capsule 1 4 Active famotidine (Pepcid) 20 mg tablet Take 1 tablet by mouth daily. 30 tablet 12 4 Active tamsulosin (Flomax) 0.4 mg capsule Take 1 capsule by mouth daily. 30 tablet 1 4 Active Additional Information Patient taking differently:0.4 mg Oral2 TIMES DAILY, Reported on 12/16/2023 olodateroL (Striverdi Respimat) 2.5 mcg/actuation inhalerIndicatio ns:Chronic obstructive pulmonary disease, unspecified COPD type Inhale 2 puffs into the lungs daily. 1 each 4 Active cyclobenzaprine (Flexeril) 10 mg tablet Take 1 tablet by mouth 3 times daily as needed for Muscle spasms. 30 tablet 1 4 Active Additional Information Patient not taking.Reported on 12/16/2023 atorvastatin (Lipitor) 40 mg tabletIndication s:Peripheral arterial disease with history of revascularizatio n,Chronic heart failure with preserved ejection fraction Take 1 tablet by mouth daily. 90 tablet 1 4 Active pregabalin (Lyrica) 100 mg capsule Take 1 capsule by mouth 3 times daily. 30 capsule 4 Active celecoxib (CeleBREX) 100 mg capsule Take 100 mg by mouth daily. 4 Active furosemide (Lasix) 40 mg tablet Take 1 tablet by mouth daily. Active lisinopriL (Zestril) 10 mg tablet Take 10 mg by mouth daily. Active nitroGLYcerin (Nitrostat) 0.[address] 0.4 mg under the tongue every 5 minutes as needed. Active nystatin (Mycostatin) Cream Apply topically 2 times daily. 4 Active traMADoL (Ultram) 50 mg tablet Take 50 mg by mouth every 6 hours as needed. 4 Active rivaroxaban (Xarelto) 10 mg tablet Take 10 mg by mouth daily. 4 Active pantoprazole EC (Protonix) [address] tablet Take 40 mg by mouth daily. 4 Active doxycycline (Avidoxy) 100 mg tabletIndication s:Osteomyelitis of toe of right foot Take 1 tablet by mouth 2 times daily. 20 tablet 4 Active Active Problems Problem Noted Date Diagnosed Date Diabetic ulcer of toe of rig ht foot associated with diabetes mellitus due to underlying condition, with fat layer exposed 09/12/2023 Diabetic ulcer of midfoot as sociated with diabetes mellitus due to underlying condition, with fat layer exposed 09/12/2023 Skin ulcer of right knee with fat layer exposed 09/12/2023 Centrilobular emphysema 08/22/2023 Foot infection 08/19/2023 H/O total knee replacement, left BPH (benign prostatic hyperplasia) Hypertension CAD (coronary artery disease) History of [place] (myocardial infarction) (HFpEF) heart failure with preserved ejection fr action COPD (chronic obstructive pulmonary disease) Osteoarthritis History of DVT (deep vein thrombosis) History of amputation of right great toe Peripheral vascular disease On supplemental oxygen therapy Social History Tobacco Use Types Packs/Day Years Used Date Smoking Tobacco: Every Day Cigarettes Smokeless Tobacco: Never Tobacco Cessation:Ready to Q uit: Not Asked; Counseling Given: Not Answered Comments:Smokes two to three cigarettes per day. Alcohol Use Standard Drinks/Week Comments Yes 0 (1 standard drink = 0.6 oz pur e alcohol) Has alcohol on New Year's PRAPARE - Transportation Answer Date Re corded In the past 12 months, has l ack of transportation kept you from medical appointments or from getting medications? No 07/30 In the past 12 months, has l ack of transportation kept you from meetings, work, or from getting things needed for daily living? No 08/20/2023 Housing Stability Vital Sign Answer Dereck e Recorded In the last 12 months, was t here a time when you were not able to pay the mortgage or rent on time? No 08/20/2023 In the past 12 months, how m any times have you moved where you were living? 1 08/20/2023 At any time in the past [address] [facility], were you homeless or living in a senior living (including now)? No 08/20/2023 DH IPV Inpatient Questions Answer Date Recorded Does Anyone Try to Keep You From Having Contact with Others or Doing Things Outside Your Home? no 12/10/2023 Feels Threatened by Someone no 11/29 Feels Unsafe at Home or Work/School no 12/10/2023 Physical Signs of Abuse Present no 12/10/2023 Sex and Gender Information Value Date Recorded Sex Assigned at Not on file Legal Sex Male 1:12 PM EDT Gender Identity Not on file Sexual Orientation Not on file Last Filed Vital Signs Vital Sign Reading Time Taken Comments Blood Pressure 106/65 12/10/2023 4:00 PM EDT Pulse 81 12/16/2023 2:21 PM EDT Temperature 36.2 C (97.1 F) 12/16/2023 2:21 PM EDT Respiratory Rate 12 12/10/2023 4:00 PM EDT Oxygen Saturation 96% 12/16/2023 2:21 PM EDT Inhaled Oxygen Concentration - - Weight 100.2 kg (221 lb) 12/09/2023 10:46 AM EDT Height 180.3 cm (5' 11 ) 12/09/2023 10:46 AM EDT Body Mass Index 30.82 12/09/2023 10:46 AM EDT Plan of Treatment Scheduled Procedures Name Priority Associated Diagnoses Date/Ti me COLONOSCOPY, DIAGNOSTIC (WRVU 3.26) +FIT Health Maintenance Due Date Last Done Comments DM Ophthalmology Exam 1955 DM Urine Microalbumin yearly 1955 Hepatitis C Screening 1963 Pneumoccocal Vaccine: 50+ (1 of 2 - PCV) 01/14/1964 Tetanus/Diphtheria/Pertussis Vaccines (1 - Tdap) 01/14/1964 Zoster vaccine (1 of 2) 1995 Advance Directive 01/14/2000 RSV Vaccine (1 - 1-dose 75+ series) 01/14/2020 Covid-19 Vaccine ( - 2023-2 5 season) 2023 DM Hemoglobin A1c 6 month 02/19/2024 08/19/2023, Influenza (Flu) vaccine (1 o f 1 - Influenza standard series) 11/29/2024 DM Creatinine yearly 12/08/2024 12/09/2023, 09/08/2023, 09/05/2023, Additional history exists Procedures Procedure Name Priority Date/Time Associated Diagnosis Comments BASIC METABOLIC PANEL STAT 12/09/2023 11:53 PM EDT HEMOGLOBIN A1C STAT 08/19/2023 2:16 PM EDT from Last 3 Months or Most Recently Relevant to Health Maintenance Results * (ABNORMAL) Basic Metabolic Panel (12/09/2023 11:53 PM EDT) Glucose 132 65 - 199 mg/dL 12/10/2023 1:16 AM EDT [facility] Comment:Glucose Concentratio n >=200 mg/dL plus symptoms is consistent with Diabetes Mellitus. Blood Urea Nitrogen 24(H) 10 - 20 mg/dL 12/10/2023 1:16 AM EDT [facility] Creatinine 1.05 0.80 - 1.50 mg/dL 12/10/2023 1:16 AM EDT [facility] Sodium 140 135 - 145 mMol/L 12/10/2023 1:16 AM EDT [facility] Potassium 4.2 3.5 - 5.0 mMol/L 12/10/2023 1:16 AM EDT [facility] Chloride 105 98 - 107 mMol/L 12/10/2023 1:16 AM EDT [facility] Carbon Dioxide 24 22 - 31 mMol/L 12/10/2023 1:16 AM EDT [facility] Anion Gap 11 5 - 15 mMol/L 12/10/2023 1:16 AM EDT [facility] Calcium 8.2(L) 8.5 - 10.5 mg/dL 12/10/2023 1:16 AM EDT [facility] Est Glomerular Filtration Rate - Male 73 mL/min/1. 73 m 12/10/2023 1:16 AM EDT [facility] Comment: This patient's estimated GFR was calculated using the 2020 CKD-EPI equation. The estimated GFR can vary from the measured GFR by up to 30% in the absence of rapidly changing kidney function. Assessment of the estimated GFR is not appropriate when creatinine concentrations are rapidly changing. For clinical situations in which a more precise estimate of GFR is necessary, consider alternative methods of GFR estimation such as a 24-hour urine creatinine clearance. Assignment of CKD stage 1 - 5 for patients with an eGFR near the transition point between stages may be based on clinical assessment of muscle mass and symptoms in addition to eGFR. Link: eGFR Calculator [employer] Blood VENOUS BLOOD SPECIMEN / Unknown Venipuncture / Unknown 12/09/2023 11:53 PM EDT 12/10/2023 12:34 AM EDT us Phil Mcgill DO CHEMISTRY ORDERABLES Final Re sult [facility] [place] [address] * (ABNORMAL) Hemoglobin A1c (08/19/2023 2:16 PM EDT) Hemoglobin A1c 6.2(H) 4.3 - 5.6 % [facility] Comment: Reference Range: 4.3 - 5.6% 5.7 - 6.4% - Increased Risk of Developing Diabetes Mellitus >= 6.5% - Consistent with diagnosis of Diabetes Mellitus In the absence of hyperglycemia (i.e. plasma glucose > 200 mg/dL) or classic symptoms of hyperglycemia a repeat measurement of HbA1c should be performed on a separate sample to confirm the diagnosis. Diagnosis and Classification of Diabetes Mellitus, Diabetes Care 2013; 36: Suppl. 1, I23-69 Estimated Average Glucose See note mg/dL [facility] Comment: Estimated Average Glucose not appropriate for patients over 70 years of age. Blood Venous Draw / Unknown 08/19/2023 2:16 PM EDT 08/19/2023 11:47 PM EDT Narrative Resulting Agency Comment Spec In Lab Chuy Balderas MD CHEMISTRY ORDERABLES Final Result [facility] [place] [address] from Last 3 Months or Most Recently Relevant to Health Maintenance Insurance [facility] MEDICARE MEDICAID [place] Advance Directives * Do NOT Attempt CPR - Inpatient (Latest Code Status on File) Date Activated Date Inactivated Comments 09/02/2023 6:31 PM 09/05/2023 6:21 PM Question Answer Comments Code Status decision made by: Patient Independent of Code Status d ecision, are there any PRE Arrest limitations (Intubation, Pressors, Cardioversion / Pacing, etc)? No Per policy, patient may rece malia all applicable life support PRE arrest: Acknowledged * Attempt Cardiopulmonary Resuscitation - Inpatient Date Activated Date Inactivated Comments 08/19/2023 9:58 PM 08/22/2023 5:39 PM Question Answer Comments Code Status decision made by: Patient Care Teams Wad Lubricator Relationship Specialty Start Date End Date Maida Rowland APRN [address] [place] [phone] PCP - General Internal Medicine 11/07/23
[2024-10-15 13:03] LABS: Hematocrit 40.1 % (42.0-52.0); Hemoglobin 12.8 g/dl (14.0-18.0); Mean Corpuscular HGB Conc 31.9 g/dl (31.0-36.0); Mean Corpuscular Hemoglobin 27.9 pg (27.0-33.0); Mean Corpuscular Volume 87.6 fL (80.0-98.0); NRBC Abs Auto 0.000 X10*3/uL (0.0-0.012); NRBC Pct Auto 0.0 /100WBC (0.0-0.2); Platelet Count 252 X10*3/uL (160-400); Red Blood Count 4.58 X10*6/uL (4.60-5.80); White Blood Count 8.6 X10*3/uL (4.8-10.8)
[2024-10-15 13:28] LABS: B Type Natriuretic Peptide 17 pg/mL (<100)
[2024-10-15 13:29] LABS: Alanine Aminotransferase 15 U/L (0-40); Albumin Level 3.7 g/dL (3.5-5.0); Alkaline Phosphatase 100 U/L (39-117); Anion Gap 13 (12-20); Aspartate Amino Transferase 32 U/L (5-37); Blood Urea Nitrogen 16 mg/dL (9-16); Calcium 8.9 mg/dL (8.4-10.2); Carbon Dioxide 30 mmol/L (22-29); Chloride 103 mmol/L (96-108); Estimated Glomerular Filt Rate > 60; Potassium 3.6 mmol/L (3.3-5.1); Sodium 142 mmol/L (135-145); Total Protein 7.0 g/dL (6.5-8.0)
== END 2024-10-15 10:50 | disposition home or self-care (01) ==
LOC: HO.HMGCX 10:49
PROVIDERS: PCP Internal Medicine; Visit Provider Nurse Practitioner Family
DX: I50.42 Chronic combined systolic (congestive) and diastolic (congestive) heart failure (principal)
CPT/HCPCS: 36415; 71046; 80053; 83880; 85027

== ENCOUNTER → 2024-10-15 10:54 | Outpatient (BNV) | payer MEDICARE, MEDICAID, SELFPAY | PROVIDERS: PCP Internal Medicine; Visit Provider Radiology Diagnostic Radiology | DX: M51.369 Other intervertebral disc degeneration, lumbar region without mention of lumbar back pain or lower extremity pain (principal) | CPT/HCPCS: 71046 ==

== ENCOUNTER → 2024-10-26 23:59 | Outpatient (BNV) | payer MEDICARE, MEDICAID, SELFPAY | PROVIDERS: PCP Internal Medicine; Visit Provider Internal Medicine | DX: I13.0 Hypertensive heart and chronic kidney disease with heart failure and stage 1 through stage 4 chronic kidney disease, or unspecified chronic kidney disease (principal); I50.32 Chronic diastolic (congestive) heart failure; J18.9 Pneumonia, unspecified organism; N18.2 Chronic kidney disease, stage 2 (mild) | CPT/HCPCS: G0180 ==

== ENCOUNTER 2024-11-02 14:14 | Outpatient (REF) | payer MEDICARE, MEDICAID, SELFPAY ==
[2024-11-02 18:23] LABS: Appearance Urine Clear; Glucose Urine UA Negative (Negative); PH 7.5 (5.0-9.0); Specific Gravity - Urine <= 1.005 (1.005-1.025)
== END 2024-11-02 14:15 | disposition home or self-care (01) ==
LOC: HO.LNP 14:14
PROVIDERS: PCP Internal Medicine; Visit Provider Internal Medicine
DX: Z09 Encounter for follow-up examination after completed treatment for conditions other than malignant neoplasm (principal); N50.89 Other specified disorders of the male genital organs; I50.42 Chronic combined systolic (congestive) and diastolic (congestive) heart failure; R35.89 Other polyuria
CPT/HCPCS: 81003; 99212

== ENCOUNTER 2024-11-02 14:14 | Outpatient (AMB) | payer MEDICARE, MEDICAID, SELFPAY ==
--- OUTSIDE RECORDS SUMMARY | 2024-10-28 13:58 | XMS_ITS | Continuity of Care Document ---
Author Organization [facility] ter Address [address] [place] [id number]- Care Team Providers Care Implementation Specialist Payroll Name Role Phone Not on Staff, PCP Primary Care Physician Unavail able [place]counter [facility] [place](s): 10/22/24 - 10/28/[address] [address]- Encounter Diagnosis COPD (chronic obstructive pulmonary disease)(Final) - 10/21/24 Discharge Disposition: A-D/C Home Attending Physician: Jeremy Banegas MD Admitting Physician: Wanda Banegas MD Referring Physician: Not on Staff, Referring MD Encounter Type: Disch IP Allergies, Adverse Reactions, Alerts Substance Criticality Severity Reaction Reaction Severity Status vancomycin Active morphine Active Duc Active Medications acetaminophen 325 mg oral tablet 650 mg, By Mouth, Every 4 hours, PRN, Temperature Greater than 100.5, Refills 0, Maintenance, Pain , Mild, 09/07/24 9:51:00 AM EDT, Partial fill upon patient request if the prescription is for a schedule II opioid drug. Start Date: 09/07/24 Status: Ordered Repeat number: 1 Albuterol (Eqv-ProAir HFA) 90 mcg/inh inhalation aerosol INHALE 2 PUFFS EVERY 6 HOURS NEEDED FOR SHORTNESS OF BREATH OR WHEEZING Start Date: 10/21/24 Status: Ordered Repeat number: 1 albuterol-ipratropium 3 mg-0.5 mg/3 ml inhalation solution 3 mL, Neb, 4 times a day, PRN as needed for shortness of breath or wheezing, # 120 each, 0 Refills,Maintenance, 10/28/24 12:40:00 PM EDT, Solution, [facility], Partial fill upon patientrequest if the prescription is for a schedule II opioid drug., 3 mL Neb 4 times a day,PRN:as neededfor shortness of breath or wheezing, 178, cm, 10/28/24 7:48:00 EDT, Height, 101.7, kg, 10/22/24 7:15:00 EDT, Dry Weight Start Date: 10/28/24 Status: Ordered Quantity: 120.0 Unit: each Repeat number: 1 atorvastatin 40 mg oral tablet 1 tablet = 40 mg, By Mouth, Daily, # 90 tablet, 0 Refills, Maintenance, 08/09/24 12:59:00 AM EDT, Tablet, Partial fill upon patient request if the prescription is for a schedule II opioid drug. Start Date: 08/09/24 Status: Ordered Quantity: 90.0 Unit: tablet Repeat number: 1 celecoxib 200 mg oral capsule 1 capsule = 200 mg, By Mouth, Daily at bedtime, # 30 capsule, 0 Refills, Maintenance, 09/02/24 12:56:00 PM EDT, Capsule, Partial fill upon patient request if the prescription is for a schedule II opioid drug. Start Date: 09/02/24 Status: Ordered Quantity: 30.0 Unit: capsule Repeat number: 1 dapagliflozin 10 mg oral tablet = 10 mg, By Mouth, Daily, # 90 tablet, 0 Refills, Maintenance, 10/28/24 12:38:00 PM EDT, Tablet, [facility], Partial fill upon patient request if the prescription is for a schedule II opioid drug., 178, cm, 10/28/24 7:48:00 EDT, Height, 101.7, kg, 10/22/24 7:15:00 EDT, Dry Weight Start Date: 10/28/24 Status: Ordered Quantity: 90.0 Unit: tablet Repeat number: 1 famotidine 20 mg oral tablet 20 mg, 1, tablet, By Mouth, Daily, # 30 tablet, Refills 0, Maintenance, 08/09/24 1:00:00 AM EDT, Partial fill upon patient request if the prescription is for a schedule II opioid drug. Start Date: 08/09/24 Status: Ordered Quantity: 30.0 Unit: tablet Repeat number: 1 Lyrica 100 mg oral capsule 1 capsule = 100 mg, By Mouth, 2 times a day, 0 Refills, Maintenance, 10/21/24 1:04:00 PM EDT, Capsule, Partial fill upon patient request if the prescription is for a schedule II opioid drug. Start Date: 10/21/24 Status: Ordered Repeat number: 1 nitroglycerin 0.3 mg sublingual tablet 1 tablet = 0.3 mg, Sublingual, Every 5 minutes, PRN as needed for chest pain, not to exceed 3 doses/15 min--if pain persists, seek medical attention, # 100 tablet, 0 Refills, Maintenance, 10/21/24 1:06:00 PM EDT, Tablet, Partial fill upon patient request if the prescription is for a schedule II opioid drug. Start Date: 10/21/24 Status: Ordered Quantity: 100.0 Unit: tablet Repeat number: 1 nystatin topical [id number] u/gm powder PRN Rash, 1 APPL TOPICALLY 2 TIMES A DAY Start Date: 10/21/24 Status: Ordered Repeat number: 1 oxyCODONE 5 mg oral tablet 5 mg, 1, tablet, By Mouth, Every 4 hours, PRN, Pain , Moderate Start Date: 10/21/24 Status: Ordered Repeat number: 1 Oxycontin ER 20 mg, ER Tablet, By Mouth, 10/28/24 10:00:00 AM EDT Start Date: 10/28/24 Stop Date: 10/28/24 Status: Completed Repeat number: 1 pantoprazole 40 mg oral delayed release tablet 1 tablet = 40 mg, By Mouth, Daily, # 30 tablet, 0 Refills, Maintenance, 08/09/24 1:00:00 AM EDT, EC Tablet Start Date: 08/09/24 Status: Ordered Quantity: 30.0 Unit: tablet Repeat number: 1 Plavix 75 mg oral tablet 75 mg, 1, tablet, By Mouth, Daily, # 30 tablet, Refills 5, Maintenance, 08/09/24 12:59:00 AM EDT, Partial fill upon patient request if the prescription is for a schedule II opioid drug. Start Date: 08/09/24 Status: Ordered Quantity: 30.0 Unit: tablet Repeat number: 1 polyethylene glycol 3350 oral powder for reconstitution = 17 Gm, By Mouth, Daily, PRN Constipation, dissolve in water before taking, # 30 each, 0 Refills, Maintenance, 10/28/24 12:45:00 PM EDT, REC Powder, [facility], Partial fill upon patient request if the prescription is for a schedule II opioid drug., 17 Gm By Mouth Daily,PRN:Constipation,Instr:dissolve in water before taking, 178, cm, 10/28/24 7:48:00 EDT, Height, 101.7, kg, 257:15:00 EDT, Dry Weight Start Date: 10/28/24 Status: Ordered Quantity: 30.0 Unit: each Repeat number: 1 predniSONE 20 mg oral tablet = 40 mg, By Mouth, Daily, for 2 days, # 4 tablet, 0 Refills, Acute 10/31/24 9:00:00 AM EDT, 10/29/24 9:00:00 AM EDT, Tablet, [facility], Partial fill upon patient request if the prescription is for a schedule II opioid drug., 178, cm, 10/28/24 7:48:00 EDT, Height, 101.7, kg, 10/22/24 7:15:00 EDT, Dry Weight Start Date: 10/29/24 Stop Date: 10/31/24 Status: Ordered Quantity: 4.0 Unit: tablet Repeat number: 1 senna 187 mg oral tablet 1 tablet = 8.6 mg, By Mouth, 2 times a day, PRN Constipation, 0 Refills, Maintenance, 09/07/24 9:51:00 AM EDT, Tablet, Partial fill upon patient request if the prescription is for a schedule II opioiddrug. Start Date: 09/07/24 Status: Ordered Repeat number: 1 tamsulosin 0.4 mg oral capsule 0.4 mg, 1, capsule, By Mouth, Daily, # 30 capsule, Refills 0, Maintenance, 08/09/24 12:59:00 AM EDT,Partial fill upon patient request if the prescription is for a schedule II opioid drug. Start Date: 08/09/24 Status: Ordered Quantity: 30.0 Unit: capsule Repeat number: 1 torsemide 20 mg oral tablet 1 tablet = 20 mg, By Mouth, Daily, Check weight daily; if weight >2 lb in 1 days or 5 lab over period of week take additional torsemide 20mg in the afternoon and call cardiology office., # 30 tablet, 0 Refills, Maintenance, 10/28/24 12:38:00 PM EDT, Tablet, [facility], Partial fill upon patient request if the prescription is for a schedule II opioid drug., 178, cm, 10/28/24 7:48:00 EDT, Height, 101.7, kg, 10/22/24 7:15:00 EDT, Dry Weight Start Date: 10/28/24 Status: Ordered Quantity: 30.0 Unit: tablet Repeat number: 1 Trelegy Ellipta 200 mcg-62.5 mcg-25 mcg/inh inhalation powder 1 puffs, Inhalation, Daily, at the same time every day, # 30 each, 0 Refills, Maintenance, 10/28/24 12:38:00 PM EDT, Powder, [facility], Partial fill upon patient request if the prescription is for a schedule II opioid drug., 1 puffs Inhalation Daily,Instr:at the same time every day, 178, cm, 10/28/24 7:48:00 EDT, Height, 101.7, kg, 10/22/24 7:15:00 EDT, Dry Weight Start Date: 10/28/24 Status: Ordered Quantity: 30.0 Unit: each Repeat number: 1 Xtampza ER 18 mg oral capsule, extended release 1 capsule = 18 mg, By Mouth, 2 times a day, with food, # 14 capsule, 0 Refills, Maintenance, 09/07/24 10:11:00 AM EDT, ER Capsule, Partial fill upon patient request if the prescription is for a schedule II opioid drug. Start Date: 09/07/24 Stop Date: 09/14/24 Status: Ordered Quantity: 14.0 Unit: capsule Repeat number: 1 Problem List Condition Confirmation Course Effective Dates Status H ealth Status Informant COPD exacerbation Confirmed Active BPH with urinary obstruction Confirmed Active CKD (chronic kidney disease) Confirmed Active COPD without exacerbation Confirmed Active Conjunctivitis Confirmed Active CAD in mechoopda artery Confirmed Active GERD without esophagitis Confirmed Active (HFpEF) heart failure with preserved ejection fraction Confirmed Active HLD (hyperlipidemia) Confirmed Active HTN (hypertension) Confirmed Active Hypoxia Confirmed Active Metabolic encephalopathy Confirmed Active Neuropathy Confirmed Active Obese class I Confirmed Active Multifocal pneumonia Confirmed Active TIA (transient ischemic attack) Confirmed Active Results Radiology Reports * Exam Date Time Procedure Performing Provider Status 10/22/24 6:[address] Angio Chest Auth (Veri fied) Notes: (CT Angio Chest) Reason For Exam: PE Suspected, Positive D-Dimer, rule out consolidation and pulmonary vascular congestion;Other: RESULT: CT Angio Chest CT Angio Chest Reason: Positive D-Dimer, concern for PE, consolidation, and pulmonary vascular congestion. TECHNIQUE: Spiral CTA of the chest was performed after rapid IV contrast administration without cardiac gating, triggered by an KASIE on the main pulmonary artery. Images are formatted in multiple planes using 2-D multiplanar and 3-D maximum intensity projection. 100 cc of Isovue 300 was administered intravenously. Weight-based protocol using automatic tube modulation was used to optimize exposure parameters. CTDIvol Body: 12.50 mGy, DLP Body: 678 mGy*cm. COMPARISONS: CT thoracic and lumbar spine 08/08/2024. ANGIOGRAPHIC FINDINGS: No pulmonary embolism to the subsegmental level. Normal caliber pulmonary arteries. No interventricular septal bowing or reflux of contrast into the IVC. RV:LV ratio < 0.9. No findings to suggest right heart strain. Moderate atherosclerotic calcification of the aorta without acute abnormality on this study performed without cardiac gating. NON-ANGIOGRAPHIC FINDINGS: Sales Service Executive view findings, lines and tubes: None. Trachea and airways: Opacification with moderate bronchial wall thickening of multiple right lower lobe bronchi (for example 405:64 and 62), likely mucous plugging. Trachea is patent without suspicious lesion. Lungs and pleura: Left costophrenic angle partially excluded from the [id number]. Increasing opacification of the posterior right lower lobe distal to the opacified bronchi. Worsening bibasilar and posterior left upper lobe tree in bud opacities. Linear atelectasis or scarring of the right upperlobe (405:30). Mild biapical paraseptal emphysema. No effusion or pneumothorax. Mediastinum and neal: No mass or hematoma. No mediastinal or hilar lymphadenopathy. No esophageal abnormality. Normal thyroid. Heart: Heart is normal in size. No pericardial effusion. Mild coronary artery calcification. Chest wall soft tissues: No acute abnormality. Mild bilateral gynecomastia. 2.1 cm hyperdensity in the subcutaneous tissues of the left posterior chest wall (401:46), likely an epidermal inclusion cyst. Diaphragm: Intact. Upper abdomen: No acute abnormality. No significant change in the pneumobilia, likely related to incompetent sphincter status post cholecystectomy. 4 mm calcification of the right hepatic lobe, likely related to prior granulomatous disease. Bones: No acute abnormality. Severe degenerative changes of the thoracic spine. IMPRESSION: 1. No evidence of pulmonary embolism. 2. Scattered tree-in-bud type opacities both lungs with differential of infection and aspiration. These may also be more chronic with somewhat unlikely present on the thoracic spine CT 08/08/2024. Consider follow-up imaging in 3 months. I have personally reviewed the images and I agree with this report. WSN: [id number] Ordering Physician: Arjun Fletcher Dictated By: Kiana Sykes DO Dictated Date/Time: 10/22/24 7:53 pm Reviewed By: Raul Oconnor MD Signed By: Raul Oconnor MD Signed Date/Time: 10/22/24 7:58 pm Transcribed By: JUANA Transcribed Date/Time: 10/22/24 7:44 pm * Exam Date Time Procedure Performing Provider Status 10/21/24 2:15 PM US Doppler Ext Lower Venous Bilat Auth (Verified) Notes: (US Doppler Ext Lower Venous Bilat) Reason For Exam: Pain in limb;Other: RESULT: US Doppler Ext Lower Venous Bilat US Doppler Ext Lower Venous Bilat Hx of Present Illness: CP SOB; Reason: Pain in limb; Clinical Question(s): Thrombosis COMPARISON: None IMAGING TECHNIQUE: Ultrasound of the veins from the groin through the calf was performed using grayscale, color, and spectral Doppler ultrasound assessing for complete compressibility and normal flowcharacteristics. FINDINGS: RIGHT LOWER EXTREMITY: Common femoral vein: Patent. No thrombosis. Femoral vein: Patent. No thrombosis. Popliteal vein: Patent. No thrombosis. Gastrocnemius veins: The visualized portions are patent without evidence of thrombosis. Peroneal veins: Not visualized. Posterior tibial veins: The visualized portions are patent without evidence of thrombosis. LEFT LOWER EXTREMITY: Common femoral vein: Patent. No thrombosis. Femoral vein: Patent. No thrombosis. Popliteal vein: Patent. No thrombosis. Gastrocnemius veins: The visualized portions are patent without evidence of thrombosis. Peroneal veins: The visualized portions are patent without evidence of thrombosis. Posterior tibial veins: The visualized portions are patent without evidence of thrombosis. OTHER FINDINGS: There is diffuse calf edema. Scattered atherosclerotic plaque. IMPRESSION: No evidence of deep venous thrombosis. I have personally reviewed the images and I agree with this report. WSN: [id number] Ordering Physician: Deandre Dotson Dictated By: Nila Cano DO Dictated Date/Time: 10/21/24 3:00 pm Reviewed By: Artem Ortez MD Signed By: Artem Ortez MD Signed Date/Time: 10/21/24 3:05 pm Transcribed By: JUANA Transcribed Date/Time: 10/21/24 2:20 pm * Exam Date Time Procedure Performing Provider Status 10/21/24 11:40 AM Chest 2 Views Frontal and Lat Auth (Verified) Notes: (Chest 2 Views Frontal and Lat) Reason For Exam: COPD RESULT: Chest 2 Views Frontal and Lat Chest 2 Views Frontal and Lat Hx of Present Illness: CP SOB; Reason: COPD; Clinical Question(s): Pneumonia COMPARISON: 09/03/2024 FINDINGS: LINES AND TUBES: None. LUNGS AND PLEURA: Low lung volumes with mild basilar atelectasis. Central vascular markings are prominent accentuatedby low lung volumes. No evidence of pleural effusion. No pneumothorax. HEART, MEDIASTINUM AND NEAL: Heart is at the upper limits of normal for size. Normal mediastinal and hilar contour. BONES AND SOFT TISSUES: No acute abnormality. IMPRESSION: Borderline cardiac enlargement and mild central vascular congestion without overt edema or effusions. No x-ray evidence of pneumonia. WSN: [id number] Ordering Physician: Deandre Dotson Dictated By: Turner Jason MD Dictated Date/Time: 10/21/24 11:59 a Reviewed By: Turner Jason MD Signed By: Turner Jaosn MD Signed Date/Time: 10/21/24 11:59 am Transcribed By: JUANA Transcribed Date/Time: 10/21/24 11:58 am Social History Social History Type Response Tobacco Use: 4 or less cigar ettes(less than 1/4 pack)/day in last 30 days. Interested in cessation: Yes. Yes, Other: One cigarette a day currently, five years ago smoked three packs a day. Sex Sex Representation Male (finding) Admission evaluation note * Marcial Perez: PERFORM Event Display: Admission Note Authored Date: [id number] Patient: ??BENJY MARIA ? Age:??79 Years?Sex:??Male?:??1945?? Chief Complaint/Reason for Consultation Bilateral LE pain and CP along with increased SOB. Junky lung sounds. History of Present Illness 79-year-old male with a history of HFrEF, CAD, CKD, COPD, hypertension, hyperlipidemia, and prior TIA presents with 2 days of chest tightness radiating to the left jaw, increased cough with sputum production, and bilateral lower extremity edema. He also endorses chills but no documented fevers. He reports shortness of breath with exertion. On exam, lungs reveal diffuse crackles without significant wheezing. Chest wall tenderness is present to palpation. He is on his baseline 2 L oxygen via nasal cannula and is moving air well. ?? He received steroids, albuterol, and aspirin by EMS. In the ED: ?? Chest X-ray: Borderline cardiomegaly and mild central vascular congestion; no clear infiltrate. ?? BNP: Not elevated. ?? Troponin: Flat at 16. ?? EKG: Sinus rhythm with first-degree AV block and known RBBB; no acute ischemic changes. ?? Lower extremity Doppler: Negative for DVT. Review of Systems CONSTITUTIONAL: ??Denies any fever, chills, changes to weight or fatigue. EYES: Denies any changes to vision, burning or diplopia. HEENT: Denies any MERCER, nasal d/c, nose bleeds, changes to voice, vertigo, photophobia, hearing changes or dental problems. CV: See HPI PULM: See HPI ABD: Denies any abdominal pain, N/V/D, heartburn, PRBPR, melena, or changes to bowel habits. : Denies any changes to frequency. ??Denies dysuria, urgency, straining, hematuria, incontinence.?? MS: Denies any joint or muscle pain, falls or changes to gait. NEURO: Denies any weakness, numbness, changes to speech confusion or memory loss. SKIN: Denies any rashes or lesions. ?? PSYCH: Denies any depression or anxiety. SIGECAPS negative. FUNCTIONAL: At baseline the patient is able to??ambulate independently Objective Vital Signs?? Temperature: 97.7 DegF (10/21/24 10:56:00) Temperature Route: Oral (10/21/24 10:56:00) Pulse Rate:??95 bpm??High (10/21/24 14:38:00) Respiratory Rate: 20 br/min (10/21/24 14:38:00) Systolic Blood Pressure: 116 mm Hg (10/21/24 14:38:00) Diastolic Blood Pressure: 63 mm Hg (10/21/24 14:38:00) Blood pressure sites: Arm, left (10/21/24 14:38:00) Mean Arterial Pressure: 81 mm Hg (10/21/24 14:38:00) Pulse Pressure: 53 mm Hg (10/21/24 14:38:00) Oxygen Saturation:??92 %??Low (10/21/24 14:38:00) Liters per Minute: 2 L/min (10/21/24 10:56:00) Mode of Delivery (Oxygen): Room air (10/21/24 14:38:00) Early Warning Score: 4 (10/21/24 16:36:14) ? Physical Exam General: 79??year old male??lies in bed comfortably in no acute distress HEENT: NCAT, moist oral mucosa, good dentition, oropharynx without erythema Card:??Tenderness to palpation of left chest wall Resp: Bilateral scattered crackles Abdomen: soft and non tender, bowel sounds WNL Extremities: 2+ bilateral lower extremity edema Skin: Without rashes or lesions, good turgor Hem/Lymph: without bruising or lymphadenopathy Psych: appropriate affect Neuro: A&OX3, no focal motor deficits Assessment/Plan Assessment:??Elderly male with multiple cardiopulmonary comorbidities presenting with subacute dyspnea, chest tightness, and lower extremity edema. Exam and imaging suggest some degree of pulmonary congestion, and he has chronic diastolic dysfunction with a history of HFrEF, though BNP is not elevated. No signs of acute coronary syndrome, and troponin/ECG are stable. Chest tightness is reproducible, pointing to musculoskeletal chest wall pain. No wheezing or new infiltrates to suggest a COPD orpneumonia exacerbation. Negative DVT makes PE less likely. ?? Overall, this appears to be: Mild volume overload in the setting of HFpEF, likely precipitated by dietary indiscretion, medication nonadherence Echo supports HFpEF with normal EF and Grade I diastolic dysfunction. Likely??mild CHF exacerbation, even though BNP is not elevated Musculoskeletal chest wall pain Rule out underlying infectious trigger vs. COPD contribution (though less likely) ?? Leg swelling (M79.89) (HFpEF) heart failure with preserved ejection fraction (I50.30) ? Lasix??60 mg IV??once now Monitor ins and outs, daily weight Monitor BMP Kindly order additional Lasix??as needed tomorrow ?? Chest tightness (R07.89):??Likely musculoskeletal??ACS ruled out continue to monitor ?? COPD (chronic obstructive pulmonary disease) (J44.9):??As needed albuterol??inhaler and DuoNebs ?? Neuropathy (G62.9):??Continue??Lyrica ?? Back pain, chronic (M54.9):??Continue oxycodone ?? BPH (benign prostatic hyperplasia) (N40.0):??Continue tamsulosin ?? History of TIA (transient ischemic attack) (Z86.73):??Continue Plavix ?? Chronic GERD (K21.9):??Continue PPI ?? VTE Prophylaxis:??Lovenox ?VTE Prophylaxis Assessment:??VTE Prophylaxis Ordered ?? Code Status:??Full code ? Histories Allergies Allergies ?(Active and Proposed Allergies Only) vancomycin? (Severity: Unknown severity, Onset: Unknown) Duc? (Severity: Unknown severity, Onset: Unknown) morphine? (Severity: Unknown severity, Onset: Unknown) ? Past Medical History/Problem List Active Problems(16) (HFpEF) heart failure with preserved ejection fraction BPH with urinary obstruction CAD in mechoopda artery CKD (chronic kidney disease) Conjunctivitis COPD exacerbation COPD without exacerbation GERD without esophagitis HLD (hyperlipidemia) HTN (hypertension) Hypoxia Metabolic encephalopathy Multifocal pneumonia Neuropathy Obese class I TIA (transient ischemic attack) ? Past Surgical History No surgery history documented. ? Social History Alcohol Details:??Use: Never. Details:??Use: Never. Substance Abuse Details:??Use: Never. Tobacco Details:??Use: 4 or less cigarettes(less than 1/4 pack)/day in last 30 days. ??Interested in cessation: Yes. ??Yes, Other: One cigarette a day currently, five years ago smoked three packs a day. Details:??Use: Never (less than 100 in lifetime). Electronic Cigarette/Vaping Details:??Electronic Cigarette Use: Never. ? Family History No Family History documented. ? Medications Home Medications Acetaminophen (acetaminophen 325 mg oral tablet)??650 Milligram By Mouth Every 4 hours as needed Temperature Greater than 100.5 Pain , Mild Albuterol (Albuterol (Eqv-ProAir HFA) 90 mcg/inh inhalation aerosol)??INHALE 2 PUFFS EVERY 6 HOURS NEEDED FOR SHORTNESS OF BREATH OR WHEEZING Amoxicillin-Clavulanate (Augmentin 875 Tablet)??1 tablet By Mouth 2 times a day for 2 Days Atorvastatin (atorvastatin 40 mg oral tablet)??1 tab(s) 40 Milligram By Mouth Daily Carbamide Peroxide Otic (Debrox 6.5% Otic)??5 Drops Ears, Both 2 times a day for 4 Days Celecoxib (celecoxib 200 mg oral capsule)??1 capsule 200 Milligram By Mouth Daily at bedtime Clopidogrel (Plavix 75 mg oral tablet)??75 Milligram 1 tablet By Mouth Daily dexlansoprazole (dexlansoprazole 60 mg oral delayed release capsule)??1 capsule 60 Milligram By Mouth Daily Famotidine (famotidine 20 mg oral tablet)??20 Milligram 1 tablet By Mouth Daily fluticason/umeclidinium/vilant (Trelegy Ellipta 200 mcg-62.5 mcg-25 mcg/inh inhalation powder)??1 puff(s) Inhalation Daily at the same time every day Furosemide (furosemide 40 mg oral tablet)??40 Milligram 1 tablet By Mouth Daily Lisinopril (lisinopril 5 mg oral tablet)??5 Milligram 1 tablet By Mouth Daily Nitroglycerin (nitroglycerin 0.3 mg sublingual tablet)??1 tab(s) 0.3 Milligram Sublingual Every 5 minutes as needed as needed for chest pain not to exceed 3 doses/15 min--if pain persists, seek medical attention Nystatin Topical (nystatin topical 689753 u/gm powder)??1 APPL TOPICALLY 2 TIMES A DAY Oxycodone (oxyCODONE 5 mg oral tablet)??5 Milligram 1 tablet By Mouth Every 4 hours as needed Pain , Moderate Oxycodone (Xtampza ER 18 mg oral capsule, extended release)??1 capsule 18 Milligram By Mouth 2 times a day for 7 Days with food Pantoprazole (pantoprazole 40 mg oral delayed release tablet)??1 tab(s) 40 Milligram By Mouth Daily Polymyxin B-Trimethoprim Ophthalmic (Polymyxin B/Trimethoprim Ophth)??2 Drops Eyes, Both 2 times a day Potassium Chloride (Potassium Chloride (Oot-Kcty-Xwp 10) 10 mEq oral tablet, extended release)??1 tab(s) 10 Milliequivalent By Mouth Daily Pregabalin (Lyrica 100 mg oral capsule)??1 capsule 100 Milligram By Mouth 2 times a day Senna (senna 187 mg oral tablet)??1 tab(s) 8.6 Milligram By Mouth 2 times a day as needed Constipation Tamsulosin (tamsulosin 0.4 mg oral capsule)??0.4 Milligram 1 capsule By Mouth Daily ? Results Recent Labs BLOOD COUNT & DIFF WBC 7.4 k/mm3 ()?? 10/21/2024 11:35 RBC 4.37 m/mm3 (Low)?? 10/21/2024 11:35 Hgb 12.3 Gm/dL (Low)?? 10/21/2024 11:35 Hct 38.1 % (Low)?? 10/21/2024 11:35 MCV 87.2 femtoliters ()?? 10/21/2024 11:35 MCH 28.1 pg ()?? 10/21/2024 11:35 MCHC 32.3 Gm/dL (Low)?? 10/21/2024 11:35 Platelet Count 221 k/mm3 ()?? 10/21/2024 11:35 RDW-SD 46.4 femtoliters ()?? 10/21/2024 11:35 MPV 10.9 femtoliters ()?? 10/21/2024 11:35 Nucleated RBC (Automated) 0.0 #/100 WBC'S ()?? 10/21/2024 11:35 Abs. NRBC 0.0 k/mm3 ()?? 10/21/2024 11:35 Abs. Neut 5.6 k/mm3 ()?? 10/21/2024 11:35 Abs. Lymph 1.1 k/mm3 ()?? 10/21/2024 11:35 Abs. [place] 0.4 k/mm3 ()?? 10/21/2024 11:35 Abs. Eo 0.3 k/mm3 ()?? 10/21/2024 11:35 Abs. Baso 0.1 k/mm3 ()?? 10/21/2024 11:35 Neut % 75.9 % ()?? 10/21/2024 11:35 Lymph % 14.4 % (Low)?? 10/21/2024 11:35 [place] % 4.7 % ()?? 10/21/2024 11:35 Eos % 3.9 % ()?? 10/21/2024 11:35 Baso % 0.8 % ()?? 10/21/2024 11:35 Imm Gran 0.3 % ()?? 10/21/2024 11:35 Abs. Imm Gran 0.0 k/mm3 ()?? 10/21/2024 11:35 ?? CARDIAC Nt-Probnp 229 pg/mL ()?? 10/21/2024 11:35 High Sensitivity Troponin (HSTnT) 13 ng/L ()?? 10/21/2024 13:22 ?? CHEM GENERAL Sodium 140 mmol/L ()?? 10/21/2024 11:35 Potassium 3.7 mmol/L ()?? 10/21/2024 11:35 Chloride 101 mmol/L ()?? 10/21/2024 11:35 Bicarbonate Level 27 mmol/L ()?? 10/21/2024 11:35 Anion Gap 12 mmol/L ()?? 10/21/2024 11:35 Glucose Level 134 mg/dL (High)?? 10/21/2024 11:35 BUN 15 mg/dL ()?? 10/21/2024 11:35 Creatinine-Blood 0.97 mg/dL ()?? 10/21/2024 11:35 Estimated GFR Creatinine 79 ML/MIN/1.73 M2 ()?? 10/21/2024 11:35 Calcium 9.1 mg/dL ()?? 10/21/2024 11:35 Protein, Total 6.8 Gm/dL ()?? 10/21/2024 11:35 Albumin 3.5 Gm/dL ()?? 10/21/2024 11:35 AG Ratio 1.1 ()?? 10/21/2024 11:35 Alkaline Phosphatase 97 units/L ()?? 10/21/2024 11:35 AST (SGOT) 25 units/L ()?? 10/21/2024 11:35 ALT (SGPT) 15 units/L ()?? 10/21/2024 11:35 Bilirubin, Total 0.4 mg/dL ()?? 10/21/2024 11:35 ?? VIROLOGY Adenovirus by PCR NEGATIVE ()?? 10/21/2024 13:22 Coronavirus 229E by PCR (not COVID-19) NEGATIVE ()?? 10/21/2024 13:22 Coronavirus HKU1 by PCR (not COVID-19) NEGATIVE ()?? 10/21/2024 13:22 Coronavirus NL63 by PCR (not COVID-19) NEGATIVE ()?? 10/21/2024 13:22 Coronavirus OC43 by PCR (not COVID-19) NEGATIVE ()?? 10/21/2024 13:22 Human Metapneumovirus by PCR NEGATIVE ()?? 10/21/2024 13:22 Rhinovirus/Enterovirus by PCR NEGATIVE ()?? 10/21/2024 13:22 Influenza A by PCR NEGATIVE ()?? 10/21/2024 13:22 Influenza B by PCR NEGATIVE ()?? 10/21/2024 13:22 Parainfluenza 1 by PCR NEGATIVE ()?? 10/21/2024 13:22 Parainfluenza 2 by PCR NEGATIVE ()?? 10/21/2024 13:22 Parainfluenza 3 by PCR NEGATIVE ()?? 10/21/2024 13:22 Parainfluenza 4 by PCR NEGATIVE ()?? 10/21/2024 13:22 RSV by PCR NEGATIVE ()?? 10/21/2024 13:22 Bordetella Pertussis by PCR NEGATIVE ()?? 10/21/2024 13:22 Chlamydophila Pneumoniae by PCR NEGATIVE ()?? 10/21/2024 13:22 Mycoplasma Pneumoniae by PCR NEGATIVE ()?? 10/21/2024 13:22 COVID-19 (SARS-CoV-2) by PCR NEGATIVE ()?? 10/21/2024 13:22 Bordetella Parapertussis by PCR NEGATIVE ()?? 10/21/2024 13:22 ? EKG study * Event Display: ECG 12-Lead Authored Date: Please click on pdf link to open report * Event Display: ECG 12-Lead Authored Date: Ventricular Rate: 74 BPM Atrial Rate: 74 BPM P-R Interval: 228 ms QRS Duration: 164 ms Q-T Interval: 430 ms QTC Calculation(Bazett): 477 ms P [place]: 76 degrees R [place]: -41 degrees T [place]: 15 degrees Sinus rhythm with 1st degree A-V block Left axis deviation Right bundle branch block Abnormal ECG When compared with ECG of 02-Sep-2024 11:51, T wave inversion now evident in Inferior leads Nonspecific T wave abnormality, worse in Lateral leads Confirmed by TREVER MERINO MD ([id number]) on 10/21/2024 12:31:32 PM [place]: TREVER MERINO MD Cardiology * Event Display: Cardiac Rhythm Strips Authored Date: * Event Display: Cardiac Rhythm Strips Authored Date: * Event Display: Cardiac Rhythm Strips Authored Date: * Event Display: Cardiac Rhythm Strips Authored Date: * Event Display: Cardiac Rhythm Strips Authored Date: Hospital Progress note * Payal Oreilly RN: SIGN, PERFORM, VERIFY Event Display: Progress Note Hospital Authored Date: Patient: BENJY MARIA Age: 79 years Sex: Male : 1945 Associated Diagnoses: None Author: Payal Oreilly RN Findings Problem Related to Alteration in Cardiac Function (new) : Alteration in Cardiac Function/new 10/28/2024 9:00 EDT Alteration in Cardiac Status Related to Heart failure Goals & Outcomes, Cardiac Status Pt will resume/maintain adequate cardiac output, Pt will resume/maintain adequate hemodynamic status, Pt will resume/maintain adequate respiratory function, Pt will resume/maintain intact neuro function, Pt will maintain adequate GI/ function appropriate for pt, Pt will maintain adequate nutrition status, Pt/caregiver will state understanding of diagnosis, Pt/caregiver will state strategies to reduce risk factors Cardiac Interventions Implemented Assess/monitor cardiac status, Assess/monitor neuro status, Assess/monitor respiratory status, Assess for tolerance of IV infusions; verify rate & dose, Call/Report variances in ECG to provider, Document & Monitor O2 Sats; Administer O2 as ordered, Ensure adequate caloric intake, If no bowel movement in 3 days activate bowel regime, Monitor & document daily weight, Monitor anticoagulation values, Monitor ECG w/administration of antiarrhythmics (CO 13.420), Obtain 12 Lead ECG and CXR as ordered, Prep pt for treatments & procedures, Teach/encourage deep breath & cough exercises, Teach/encourage use of incentive spirometer, Team conversation regarding appropriate level of care, Turn & reposition Q2 hours per activity restrictions, Useadjunctive therapies per Standards of Practice Goals/Interventions, Cardiac Yes Cardiac, Problem Start 10/23/2024 3:00 Reviewed Plan with, Cardiac Status Patient Patient Progression, Cardiac Status Patient progressing according to plan . Nursing Data Vital Signs : VITAL SIGNS SECTION 10/28/2024 12:30 EDT Early Warning Score 2.00 10/28/2024 12:29 EDT Respiratory Rate 18 br/min 10/28/2024 7:48 EDT Early Warning Score 2.00 10/28/2024 7:48 EDT Temperature 97.6 DegF Temperature Route Oral Pulse Rate 62 bpm Respiratory Rate 17 br/min Systolic Blood Pressure 117 mm Hg Diastolic Blood Pressure 56 mm Hg Blood pressure sites Arm, left Mean Arterial Pressure 76 mm Hg Pulse Pressure 61 mm Hg Oxygen Saturation 100 % Liters per Minute 2 L/min Mode of Delivery (Oxygen) Nasal cannula . Narrative/Incidental Pt A&Ox4, NSR on tele, with first degree IVCD, pt on no o2 assessd by pulmonary found to not need O2 during day, pt one assit with walker, able to walk to and from bathroom with walker. Pt moves well to chair, has incentive spirometer and acapella. Pt recives nystatin in groins and zinc on botoom. Pt on cardiac diet, last BM 10/28 pt recieved one dose lactulose see mar for details. Pt complains of 10/10 pain recieves oxycotin, see mar for details. 1400 pt discharged home taken to lobby in wheelchair. . Discharge Information Case Management Discharge Plan : Case Management Discharge Plan Data 10/28/2024 10:35 EDT Discharge Medical Equipment [employer] [phone] 10/27/2024 13:41 EDT Discharge Level of Care at Discharge Homehealth/VNA Discharge VNA/Hospice/Home Care [facility] [phone] Name of Agency #1 [facility] VNA/Hospice Agency [employer] Intake Service Categories #1 Physical Therapy, Senior Living Service Comments #1 [facility] [phone] will provide your care after discharge, if any questions or concerns please contact the agency directly. Pulmonary Rehab Discharge : Pulmonary Rehab Discharge Status 10/28/2024 10:35 EDT Home care instructions Call company when you get home. Rehabilitation Discharge : Rehab Discharge Index 10/24/2024 8:58 EDT Comments on treatment indicated Comments on treatment indicated Walker: distance < 10 Full chart review completed Yes Plan of care PT Gait training, Transfer training, Therapeutic exercise, Functional Activities, Balance training * Yolanda Villanueva LPN: PERFORM, SIGN, VERIFY Event Display: Progress Note Hospital Authored Date: Patient: BENJY MARIA Age: 79 years Sex: Male : 1945 Associated Diagnoses: None Author: Yolanda Villanueva LPN Findings Problem Related to Alteration in Cardiac Function (new) : Alteration in Cardiac Function/new 10/27/2024 21:00 EDT Alteration in Cardiac Status Related to Heart failure Goals & Outcomes, Cardiac Status Pt will resume/maintain adequate cardiac output, Pt will resume/maintain adequate hemodynamic status, Pt will resume/maintain adequate respiratory function, Pt will resume/maintain intact neuro function, Pt will maintain adequate GI/ function appropriate for pt, Pt will maintain adequate nutrition status, Pt/caregiver will state understanding of diagnosis, Pt/caregiver will state strategies to reduce risk factors Cardiac Interventions Implemented Assess/monitor cardiac status, Assess/monitor neuro status, Assess/monitor respiratory status, If no bowel movement in 3 days activate bowel regime, Monitor & document daily weight BH Goals/Interventions, Cardiac Yes Cardiac, Problem Start 10/23/2024 3:00 Reviewed Plan with, Cardiac Status Patient Patient Progression, Cardiac Status Patient progressing according to plan . Nursing Data Cardiac Data. : Cardiac Data. 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 Respiratory/Pulmonary Data. : Respiratory/Pulmonary Data. 10/27/2024 21:00 EDT Left Upper Lobe Breath Sounds Diminished Right Upper Lobe Breath Sounds Diminished Right Middle Lobe Breath Sounds Diminished Left Lower Lobe Breath Sounds Wheezing, expiratory Right Lower Lobe Breath Sounds Wheezing, expiratory Respiratory Treatment(s) Cough and deep breathe, Incentive spirometry Respiratory WNL except . Vital Signs : VITAL SIGNS SECTION 10/28/2024 2:48 EDT Temperature 97.4 DegF Temperature Route Oral Pulse Rate 74 bpm Respiratory Rate 18 br/min Systolic Blood Pressure 104 mm Hg Diastolic Blood Pressure 60 mm Hg Blood pressure sites Arm, right Mean Arterial Pressure 75 mm Hg Pulse Pressure 44 mm Hg Oxygen Saturation 99 % Liters per Minute 1 L/min Mode of Delivery (Oxygen) Nasal cannula 10/28/2024 1:47 EDT Early Warning Score 3.00 10/28/2024 0:44 EDT Respiratory Rate 18 br/min 10/27/2024 23:45 EDT Early Warning Score 3.00 10/27/2024 23:44 EDT Early Warning Score 3.00 10/27/2024 23:44 EDT Respiratory Rate 18 br/min 10/27/2024 23:25 EDT Respiratory Rate 18 br/min 10/27/2024 22:26 EDT Early Warning Score 3.00 10/27/2024 22:25 EDT Respiratory Rate 18 br/min 10/27/2024 21:33 EDT Early Warning Score 3.00 10/27/2024 21:31 EDT Early Warning Score 3.00 10/27/2024 21:29 EDT Temperature 97.6 DegF Temperature Route Temporal Pulse Rate 94 bpm H Respiratory Rate 18 br/min Systolic Blood Pressure 116 mm Hg Diastolic Blood Pressure 57 mm Hg Blood pressure sites Arm, left Mean Arterial Pressure 77 mm Hg Pulse Pressure 59 mm Hg Oxygen Saturation 98 % Liters per Minute 2 L/min Mode of Delivery (Oxygen) Nasal cannula . Psychosocial : Psychosocial Data. 10/27/2024 22:00 EDT Affect/Behavior Appropriate, Calm, Cooperative . Evaluation Pt is A&OX3. VSS. Lung sounds diminished with wheezing in the lower bases. 98% saturation on 2Lnasal cannula. On DuoNeb treatment. NSR with first degree AVB. Pt denies chest pain and dizziness. Edema noted to lower extremities. PRN oxycodone and schedule Oxycontin given with little to no ease.Zinc oxide to coccyx. all safety measures in place and call matias at bedside.. Discharge Information Case Management Discharge Plan : Case Management Discharge Plan Data 10/27/2024 13:41 EDT Discharge Level of Care at Discharge Homehealth/VNA Discharge VNA/Hospice/Home Care [facility] [phone] Name of Agency #1 [facility] VNA/Hospice Agency [employer] Intake Service Categories #1 Physical Therapy, Senior Living Service Comments #1 [facility] [phone] will provide your care after discharge, if any questions or concerns please contact the agency directly. Rehabilitation Discharge : Rehab Discharge Index 10/24/2024 8:58 EDT Comments on treatment indicated Comments on treatment indicated Walker: distance < 10 Full chart review completed Yes Plan of care PT Gait training, Transfer training, Therapeutic exercise, Functional Activities, Balance training * Payal Oreilly RN: VERIFY, MODIFY, SIGN, PERFORM, SIGN Event Display: Progress Note Hospital Authored Date: [id number] Patient: BENJY MARIA Age: 79 years Sex: Male : 1945 Associated Diagnoses: None Author: Payal Oreilly RN Findings Problem Related to Alteration in Cardiac Function (new) : Alteration in Cardiac Function/new 10/27/2024 9:00 EDT Alteration in Cardiac Status Related to Heart failure Goals & Outcomes, Cardiac Status Pt will resume/maintain adequate cardiac output, Pt will resume/maintain adequate hemodynamic status, Pt will resume/maintain adequate respiratory function, Pt will resume/maintain intact neuro function, Pt will maintain adequate GI/ function appropriate for pt, Pt will maintain adequate nutrition status, Pt/caregiver will state understanding of diagnosis, Pt/caregiver will state strategies to reduce risk factors Cardiac Interventions Implemented Assess/monitor cardiac status, Assess/monitor neuro status, Assess/monitor respiratory status, Assess for tolerance of IV infusions; verify rate & dose, Call/Report variances in ECG to provider, Document & Monitor O2 Sats; Administer O2 as ordered, Ensure adequate caloric intake, If no bowel movement in 3 days activate bowel regime, Monitor & document daily weight, Monitor anticoagulation values, Monitor ECG w/administration of antiarrhythmics (CO 13.420), Obtain 12 Lead ECG and CXR as ordered, Prep pt for treatments & procedures, Teach/encourage deep breath & cough exercises, Teach/encourage use of incentive spirometer, Team conversation regarding appropriate level of care, Turn & reposition Q2 hours per activity restrictions, Useadjunctive therapies per Standards of Practice Goals/Interventions, Cardiac Yes Cardiac, Problem Start 10/23/2024 3:00 Reviewed Plan with, Cardiac Status Patient Patient Progression, Cardiac Status Patient progressing according to plan . Nursing Data Vital Signs : VITAL SIGNS SECTION 10/27/2024 13:21 EDT Early Warning Score 3.00 10/27/2024 13:19 EDT Temperature 98.2 DegF Temperature Route Oral Pulse Rate 65 bpm Respiratory Rate 18 br/min Systolic Blood Pressure 123 mm Hg Diastolic Blood Pressure 74 mm Hg Mean Arterial Pressure 90 mm Hg Pulse Pressure 49 mm Hg Oxygen Saturation 95 % Liters per Minute 1 L/min Mode of Delivery (Oxygen) Nasal cannula 10/27/2024 12:49 EDT Early Warning Score 3.00 10/27/2024 12:41 EDT Respiratory Rate 18 br/min 10/27/2024 11:41 EDT Early Warning Score 3.00 10/27/2024 11:41 EDT Respiratory Rate 18 br/min 10/27/2024 7:46 EDT Early Warning Score 3.00 10/27/2024 7:44 EDT Temperature 97.9 DegF Temperature Route Oral Pulse Rate 88 bpm Respiratory Rate 20 br/min Systolic Blood Pressure 122 mm Hg Diastolic Blood Pressure 66 mm Hg Mean Arterial Pressure 85 mm Hg Pulse Pressure 56 mm Hg Oxygen Saturation 97 % Liters per Minute 2 L/min Mode of Delivery (Oxygen) Room air . Narrative/Incidental Pt A&Ox4, NSR on tele, with first degree IVCD, pt on 2L O2 during day, asha gramajo, pt one assit with walker, able to walk to and from bathroom with walker. Pt moves well to chair, has incentive spirometer and acapella. Pt recives nystatin in groins and zinc on botoom. Pt on cardiac diet, last BM 10/24. Pt lasix changed to torsemide see mar for details. Pt complains of 10/10 pain recieves oxycotin, see mar for details. Pt evaluates pt see chart for details. 181 pt given oxycodone for 10/10 pain see mar for details.. Discharge Information Case Management Discharge Plan : Case Management Discharge Plan Data 10/27/2024 13:41 EDT Discharge Level of Care at Discharge Homehealth/VNA Discharge VNA/Hospice/Home Care [facility] Visiting Nurse [facility] [phone] Name of Agency #1 [facility] VNA/Hospice Agency [employer] #1 Intake Service Categories #1 Physical Therapy, Senior Living Service Comments #1 [facility] Vis[facility] Nurse [facility] [phone] will provide your care after discharge, if any questions or concerns please contact the agency directly. Rehabilitation Discharge : Rehab Discharge Index 10/24/2024 8:58 EDT Comments on treatment indicated Comments on treatment indicated Walker: distance < 10 Full chart review completed Yes Plan of care PT Gait training, Transfer training, Therapeutic exercise, Functional Activities, Balance training Consult note * Otf Baker: PERFORM, MODIFY Event Display: Consultation Note Authored Date: [id number] Patient: ??BENJY MARIA ? Age:??79 Years?Sex:??Male?:??1945?? Patient Hx *text entered here will not copy forward Date:?? October 22, 2024 Referring Provider:?? Justine COELLO, Ajrun Primary Phlebotomy Manager:?? None at this time Indication for Consult Worsening LE edema, Shortness of breath and Chest Pressure History of Present Illness/Interval History Mr. Maria is a 79 year old male with past medical history of reported coronary artery disease, angina and heart failure diagnosed and treated in [place], chronic kidney disease, hypertension, hyperlipidemia, COPD, right knee replacement, neuropathy,??DJD??and prior TIA who presents with worsening lower extremity edema, shortness of breath and chest pressure.?? The patient reports that he was recently hospitalized in July with a fall at home as well as urinary tract infection and then in August with multifocal pneumonia and chronic respiratory failure as well as acute on chronic kidney dysfunction and metabolic encephalopathy.?? During his last admission the patient did have an echocardiogram which appeared to show preserved left ventricular systolic function without regional wall motion abnormalities, mild diastolic dysfunction and mild aortic stenosis.?? The patient reports that over the last several days he has noticed increasing lower extremity edema where he is having trouble walki ng.?? Additionally he noticed gradual onset shortness of breath and then eventually chest pressure.?? He was brought into the emergency room with chest x-ray showing mild central vascular congestion with normal BNP and flat troponin.?? EKG showed first-degree AV block with right bundle fernanda block consistent with bifascicular block with no acute ischemic changes.?? Lower extremity Doppler was negative for DVT.?? The patient was given mild diuretic and had some improvement of symptoms.?? At thetime of consultation the patient was reporting mild residual chest pressure but improving shortnessof breath and lower extremity edema.?? No palpitations, lightheadedness, presyncope or syncope.?? No orthopnea, paroxysmal nocturnal dyspnea, abdominal distention, cough.?? No fevers chills or sweats. Review of Systems 12 point review of systems reviewed in full and negative other then those listed above Physical Exam Vitals & Measurements T:??97.7?F?? HR:??69??(Peripheral)?? RR:??18?? BP:??127/65?? SpO2:??98%?? HT:??178??cm?? WT:??101.7??kg?? BMI:??31.88?? Weight lb/oz: 224 lb 3 oz General appearance: WDWN, no acute distress, resting comfortably?? HEENT: NCAT,??negative JVD, carotid pulses are +2 bilaterally without carotid bruit Respiratory: easy respiratory effort, lungs are clear Cardiac: S1S2, heart rate regular, +soft systolic murmur, no heaves/rubs/gallops Abdomen round, soft, non-tender, +bowel sounds x4 quadrants, no HSM appreciated?? Extremities:?? BLE edema, skin is warm, BLE venous stasis dermatitis Pulses: radial and pedal bilaterally +2 Neurologic: alert and oriented x3, grossly normal Mood and Affect: calm Integument no rashes , dry and intact, warm, scabs on feet possibly arterial wounds Intake and Output Today's Intake Total?280?? Today's Balance?280?? Yesterday's Output Total? 2250?? Yesterday's Urine Voided? 2250?? Yesterday's Balance?-2250?? Clinical Range's Intake Total?280?? Clinical Range's Output Total? 2250?? Clinical Range's Total Urine Voided? 2250?? Clinical Range's Balance ?-1970?? Assessment/Plan (HFpEF) heart failure with preserved ejection fraction Back pain, chronic BPH (benign prostatic hyperplasia) Cellulitis (Provisional) Chest tightness (Provisional) Chronic GERD COPD (chronic obstructive pulmonary disease) (Provisional) History of TIA (transient ischemic attack) Leg swelling (Provisional) Neuropathy Mr. Maria is a 79 year old male with past medical history of reported coronary artery disease, angina and heart failure diagnosed and treated in [place], chronic kidney disease, hypertension, hyperlipidemia, COPD, right knee replacement, neuropathy,??DJD??and prior TIA who presents with worsening lower extremity edema, shortness of breath and chest pressure.?? The patient's symptoms are suggestive of mild acute diastolic heart failure.?? He is responding to diuresis.?? This is potentially related to the down titration of his diuretics recently.?? Continue with IV diuresis.?? Continue with daily weights, strict intake and output and daily labs.?? Although the patient had BPH and a recent UTI he may still benefit from an SGLT2 inhibitor.?? Will consider starting this with careful monitoring for recurrent UTIs.?? No evidence of acute coronary syndrome or significant heart arrhythmias. ?Thank you for allowing us to participate in this patient's care. ??We will continue to follow them as an inpatient and outpatient. ??Please feel free to call with any questions or concerns. ?The patient was seen with ??Abilio Magana.?? Allergies Duc morphine vancomycin Home Medications Acetaminophen: 650 mg, By Mouth, Every 4 hours, PRN (Pain , Mild), Temperature Greater than 100.5 Albuterol: INHALE 2 PUFFS EVERY 6 HOURS NEEDED FOR SHORTNESS OF BREATH OR WHEEZING Amoxicillin-Clavulanate: 1 tablet, By Mouth, 2 times a day Atorvastatin: 40 mg = 1 tablet, By Mouth, Daily Carbamide Peroxide Otic: 5 drops, Ears, Both, 2 times a day Celecoxib: 200 mg = 1 capsule, By Mouth, Daily at bedtime Clopidogrel: 75 mg = 1 tablet, By Mouth, Daily dexlansoprazole: 60 mg = 1 capsule, By Mouth, Daily Famotidine: 20 mg = 1 tablet, By Mouth, Daily fluticason/umeclidinium/vilant: 1 puffs, Inhalation, Daily, at the same time every day Furosemide: 40 mg = 1 tablet, By Mouth, Daily Lisinopril: 5 mg = 1 tablet, By Mouth, Daily Nitroglycerin: 0.3 mg = 1 tablet, Sublingual, Every 5 minutes, PRN (as needed for chest pain), not to exceed 3 doses/15 min--if pain persists, seek medical attention Nystatin Topical: 1 APPL TOPICALLY 2 TIMES A DAY Oxycodone: 18 mg = 1 capsule, By Mouth, 2 times a day, with food Oxycodone: 5 mg = 1 tablet, By Mouth, Every 4 hours, PRN (Pain , Moderate) Pantoprazole: 40 mg = 1 tablet, By Mouth, Daily Polymyxin B-Trimethoprim Ophthalmic: 2 drops, Eyes, Both, 2 times a day Potassium Chloride: 10 mEq = 1 tablet, By Mouth, Daily Pregabalin: 100 mg = 1 capsule, By Mouth, 2 times a day Senna: 8.6 mg = 1 tablet, By Mouth, 2 times a day, PRN (Constipation) Tamsulosin: 0.4 mg = 1 capsule, By Mouth, Daily Hospital Medications Medications (20) Active SCHEDULED: (9) Atorvastatin 40 mg Tablet (atorvastatin 40 mg oral tablet) ??40 mg, By Mouth, Daily Clopidogrel 75 mg Tablet (Plavix 75 mg oral tablet) ??75 mg, By Mouth, Daily Enoxaparin 40 mg Inj (Enoxaparin Inj) ??40 mg 0.4 mL, Subcutaneous Injection, Daily NaCl 0.9% Flush 3ml (NaCL 0.9% Flush) ??3 mL, IV Push, Every 8 hours Nystatin Powder ??1 application, Topically, 2 times a day OxyCODONE 20 mg ER Tablet (Oxycontin ER) ??20 mg, By Mouth, Every 12 hours Pantoprazole 40 mg EC Tablet (pantoprazole 40 mg oral delayed release tablet) ??40 mg, By Mouth, Daily Pregabalin 50 mg Capsule (Lyrica 50 mg oral capsule) ??100 mg, By Mouth, 2 times a day Tamsulosin 0.4 mg Capsule (tamsulosin 0.4 mg oral capsule) ??0.4 mg, By Mouth, Daily CONTINUOUS: (0) PRN: (11) Acetaminophen 325 mg Tablet (Acetaminophen Tablet) ??650 mg, By Mouth, Every 4 hours Albuterol 90mcg/Inhalation Inhaler HFA (albuterol CFC free 90 mcg/inh inhalation aerosol) ??180 mcg2 puffs, Inhalation, Every 4 hours Albuterol/Ipratropium Inhalation [place] 3mL (Duoneb Inhalation Solution) ??1 vials, BAND Nebulizer, Every 4 hours Dextromethorphan-Guaifenesin 20 mg-200 mg/10 mL Liqu UD (Robitussin DM Liquid) ??10 mL, By Mouth, Every 4 hours Melatonin 3 mg Tablet (Melatonin Tablet) ??3 mg, By Mouth, Daily at bedtime NaCl 0.9% Flush 3ml (NaCL 0.9% Flush) ??3 mL, IV Push, Every 8 hours OxyCODONE 5 mg IR Tablet (oxyCODONE 5 mg oral tablet) ??5 mg, By Mouth, Every 4 hours Polyethylene Glycol 17 Gm Powder (MiraLax Powder) ??17 Gm 1 pack/packet, By Mouth, Daily Senna Tablet ??8.6 mg 1 tablet, By Mouth, 2 times a day Simethicone 80 mg Chewable Tablet (Simethicone Tablet) ??80 mg, Chew, 3 times a day Sodium Chloride 0.65% Nasal Luana (Salinex Luana) ??1 sprays, Nares, Both, 4 times a day Lab Results Cardiology Labs Blood Count & Diff COAG?? General Chemistry?? Cardiac?? WBC:??16.2 k/mm3??High (10/22/24) INR:??1.3??High (09/03/24) Sodium: 139 mmol/L (10/22/24) Bilirubin, Total: 0.4 mg/dL (10/21/24) RBC:??4.35 m/mm3??Low (10/22/24) Protime (PT):??13.2 seconds??High (09/03/24) Potassium: 3.9 mmol/L (10/22/24) ?? Hgb:??12.1 Gm/dL??Low (10/22/24) APTT:??34.6 seconds??High (09/02/24) Chloride: 99 mmol/L (10/22/24) ?? Hct:??37.7 %??Low (10/22/24) ?? Bicarbonate Level: 27 mmol/L (10/22/24) ?? MCV: 86.7 femtoliters (10/22/24) ?? Anion Gap: 13 mmol/L (10/22/24) ?? Platelet Count: 232 k/mm3 (10/22/24) ?? Glucose Level:??144 mg/dL??High (10/22/24) ? BUN: 22 mg/dL (10/22/24) ? Creatinine-Blood: 0.89 mg/dL (10/22/24) ? Estimated GFR Creatinine: 87 ML/MIN/1.73 M2 (10/22/24) ? Calcium: 9 mg/dL (10/22/24) ? Magnesium: 2.2 mg/dL (10/22/24) ? Protein, Total: 6.8 Gm/dL (10/21/24) ? Albumin: 3.5 Gm/dL (10/21/24) ? Alkaline Phosphatase: 97 units/L (10/21/24) ? AST (SGOT): 25 units/L (10/21/24) ? ALT (SGPT): 15 units/L (10/21/24) ?? Diagnostic Impression ECG ECG 12-Lead ?? 11:19:09 Please click on pdf link to open report ?? Signed By: Trever Merino MD ?? ECG 12-Lead ?? 11:19:09 Ventricular Rate: 74 BPM Atrial Rate: 74 BPM P-R Interval: 228 ms QRS Duration: 164 ms Q-T Interval: 430 ms QTC Calculation(Bazett): 477 ms P [place]: 76 degrees R [place]: -41 degrees T [place]: 15 degrees Sinus rhythm with 1st degree A-V block Left axis deviation Right bundle branch block Abnormal ECG When compared with ECG of 02-Sep-2024 11:51, T wave inversion now evident in Inferior leads Nonspecific T wave abnormality, worse in Lateral leads Confirmed ?? Signed By: Trever Merino MD Echo Echocardiogram - Complete ?? 07:33:22 Summary Suboptimal image quality due to patient???s body habitus. The aortic valve is poorly visualized on the parasternal short axis view. The aortic valve appears moderately calcified. There is mild aortic stenosis. There is no evidence of aortic regurgitation. There is moderate mitral annular calcification. There is no mitral stenosis or regurgitation. The left ventricular size is normal. Left ventricular wall thickness is normal. The LV systolic function is normal . The left ventricular ejection fraction is 55-60 %. There are no regional wall motion abnormalities. Grade I, mild diastolic dysfunction with impaired LV relaxation, which may be normal for the patient???s age. ?? Comparison No prior study available for comparison. ?? Signature ?? Signed By: Karlie COELLO, [facility] Problem List/Past Medical History Ongoing (HFpEF) heart failure with preserved ejection fraction BPH with urinary obstruction CAD in me[place]op[place] artery CKD (chronic kidney disease) Conjunctivitis COPD exacerbation COPD without exacerbation GERD without esophagitis HLD (hyperlipidemia) HTN (hypertension) Hypoxia Metabolic encephalopathy Multifocal pneumonia Neuropathy Obese class I TIA (transient ischemic attack) Procedure/Surgical History No qualifying data available. Social History Alcohol Use: Never. Electronic Cigarette/Vaping Electronic Cigarette Use: Never. Substance Abuse Use: Never. Tobacco Use: 4 or less cigarettes(less than 1/4 pack)/day in last 30 days. Interested in cessation: Yes. Yes, Other: One cigarette a day currently, five years ago smoked three packs a day. Family History No family history recorded. * Chino COELLO, Abilio Crowe: PERFORM Event Display: Consultation Note Authored Date: [id number] Patient seen and examined with DAV Spencer.?? I responsible for medical decision making. ?? Improving heart failure with preserved ejection fraction, continue IV diuresis.?? Likely needs a higher maintenance dose of oral diuretic.?? Considering SGL 2 inhibitor Note * Viridiana Colindres RN: PERFORM Event Display: Discharge/Transfer Note Hospital Authored Date: [id number] Nursing Discharge Note Entered On: 10/28/2024 13:58 EDT Performed On: 10/28/2024 13:58 EDT by Viridiana Colindres RN Nursing Discharge Note 2 Discharge Time : 10/28/2024 13:58 EDT Discharge Level of Care at Discharge : Homehealth/VNA Discharge VNA/Hospice/Home Care(v001) : [facility] [phone] Discharge Medical Equip Companies(v001) : [employer] [phone] Patient Left Unit Via : Wheelchair Patient Accompanied Off Unit with : Responsible adult DC Instructions Provided & Signed by Pt : Yes Patient Understands D/C Instructions : Yes Patient Instructions Discharge Signed : Yes Did Pt have Specialty Bed or Wound Vac : No Viridiana Colindres RN - 10/28/2024 13:58 EDT * Jeremy Banegas MD: PERFORM Event Display: Discharge/Transfer Note Hospital Authored Date: [id number] Patient: ??CANDACEBENJY ? Age:??79 Years?Sex:??Male?:??1945?? 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) COPD (chronic obstructive pulmonary disease) (J44.9) Acute on chronic heart failure with preserved ejection fraction (HFpEF) (I50.33) Chronic GERD (K21.9) BPH (benign prostatic hyperplasia) (N40.0) Back pain, chronic (M54.9) Neuropathy (G62.9) _ Discharge Medications Acetaminophen (acetaminophen 325 mg oral tablet)??650 Milligram By Mouth Every 4 hours as needed Temperature Greater than 100.5 Pain , Mild Albuterol (Albuterol (Eqv-ProAir HFA) 90 mcg/inh inhalation aerosol)??INHALE 2 PUFFS EVERY 6 HOURS NEEDED FOR SHORTNESS OF BREATH OR WHEEZING Albuterol/Ipratropium (albuterol-ipratropium 3 mg-0.5 mg/3 ml inhalation solution)??3 Milliliter Neb 4 times a day as needed as needed for shortness of breath or wheezing Atorvastatin (atorvastatin 40 mg oral tablet)??1 tab(s) 40 Milligram By Mouth Daily Celecoxib (celecoxib 200 mg oral capsule)??1 capsule 200 Milligram By Mouth Daily at bedtime Clopidogrel (Plavix 75 mg oral tablet)??75 Milligram 1 tablet By Mouth Daily dapagliflozin (dapagliflozin 10 mg oral tablet)??10 Milligram By Mouth Daily Famotidine (famotidine 20 mg oral tablet)??20 Milligram 1 tablet By Mouth Daily fluticason/umeclidinium/vilant (Trelegy Ellipta 200 mcg-62.5 mcg-25 mcg/inh inhalation powder)??1 puff(s) Inhalation Daily at the same time every day Nitroglycerin (nitroglycerin 0.3 mg sublingual tablet)??1 tab(s) 0.3 Milligram Sublingual Every 5 minutes as needed as needed for chest pain not to exceed 3 doses/15 min--if pain persists, seek medical attention Nystatin Topical (nystatin topical 081174 u/gm powder)??as needed Rash 1 APPL TOPICALLY 2 TIMES A DAY Oxycodone (oxyCODONE 5 mg oral tablet)??5 Milligram 1 tablet By Mouth Every 4 hours as needed Pain , Moderate Oxycodone (Xtampza ER 18 mg oral capsule, extended release)??1 capsule 18 Milligram By Mouth 2 times a day for 7 Days with food Pantoprazole (pantoprazole 40 mg oral delayed release tablet)??1 tab(s) 40 Milligram By Mouth Daily Polyethylene Glycol 3350 (polyethylene glycol 3350 oral powder for reconstitution)??17 gram By Mouth Daily as needed Constipation dissolve in water before taking PredniSONE (predniSONE 20 mg oral tablet)??40 Milligram By Mouth Daily for 2 Days Pregabalin (Lyrica 100 mg oral capsule)??1 capsule 100 Milligram By Mouth 2 times a day Senna (senna 187 mg oral tablet)??1 tab(s) 8.6 Milligram By Mouth 2 times a day as needed Constipation Tamsulosin (tamsulosin 0.4 mg oral capsule)??0.4 Milligram 1 capsule By Mouth Daily torsemide (torsemide 20 mg oral tablet)??1 tab(s) 20 Milligram By Mouth Daily Check weight daily; if weight >2 lb in 1 days or 5 lab over period of week take additional torsemide 20mg in the afternoon and call cardiology office. ? Medications Started Torsemide 20 mg daily?? Dapagliflozin 10 mg daily Prednisone for 2 more days Medications Discontinued Furosemide Allergies Allergies ?(Active and Proposed Allergies Only) vancomycin? (Severity: Unknown severity, Onset: Unknown) Duc? (Severity: Unknown severity, Onset: Unknown) morphine? (Severity: Unknown severity, Onset: Unknown) ? Hospital Course 79-year-old male with PMH significant and relevant for recent admission at [facility] 08/2024 treated for multifocal pneumonia, oxygen dependent COPD on 2 to 3 L at baseline, HFpEF, chronic back pain with opioid dependence, history of right lower extremity DVT previously on therapeutic a nticoagulation, GERD, BPH presented to [facility] with intermittent episodes of chest tightness as wellas progressive shortness of breath with minimal exertion currently being managed for acute on chronic HFpEF. ??He is also managed for COPD exacerbation with steroids and nebulization.?? With continued medical management??patient has good clinical response with??significant weight down and??improvement in lower extremity swelling.?? Is transition to p.o. diuretics??and started on dapagliflozin.?? Pulmonary rehab nurse evaluation is done.?? Patient denies any acute complaints and feels ready for discharge. ?? Assessment and plan while in the hospital ?? 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 Based on patient's history and presenting timeline,??it appears that??patient's??clinicalsigns/symptoms??are most consistent with acute on chronic??decompensated HFpEF.?Given??the??intermittent episodes of chest tightness,??concerns for??atypical angina although seems less likely now with improvement in symptoms with IV diuresis,?serial troponins x 3 have been negative??with no evidence??of acute ischemic changes??on EKG on admission.His BNP??is lower??when compared to admission. At this point in time clinically there is no evidence of acute exacerbation??of his COPD??with his oxygen requirements??at baseline 2 to 3 L. Leukocytosis has improved, likely reactive.CTA chest with no evidence of PE although mucus pluggingand likely consolidation from recently treated PNA. Appreciate??PV cardiology recommendations Plan -s/p IV lasix --->now change to torsemide 20mg PO daily-->Check weight daily; if weight >2lb in 1 days or 5 lab over period of week take additional torsemide 20mg in the afternoon and call cardiology office. -Continue dapagliflozin??10 Mg -Resume home inhalers and prn nebulizer. -Finish 5 days course of prednisone 40 Mg -Pulmonary rehab nurse evaluation done.?? No need for home oxygen. -[facility] cardiology planning??for ischemic workup outpatient ?? Chronic GERD (K21.9):??continue pantoprazole while inpatient ?? BPH (benign prostatic hyperplasia) (N40.0):??Continue tamsulosin ?? Back pain, chronic (M54.9) Uncomplicated opioid dependence (F11.20) ? Patient is on??extended release??oxycodone??at home 18 mg??twice daily.??Discussed with pharmacy, okay to use??OxyContin 20 mg twice daily??while inpatient??with??oxycodone immediate release??as needed for breakthrough pain Continue pregabalin?? Constipation??bowel regimen intensified. Objective Vital Signs?? Temperature: 97.6 DegF (10/28/24 07:48:00) Temperature Route: Oral (10/28/24 07:48:00) Pulse Rate: 62 bpm (10/28/24 07:48:00) Respiratory Rate: 17 br/min (10/28/24 07:48:00) Systolic Blood Pressure: 117 mm Hg (10/28/24 07:48:00) Diastolic Blood Pressure: 56 mm Hg (10/28/24 07:48:00) Blood pressure sites: Arm, left (10/28/24 07:48:00) Mean Arterial Pressure: 76 mm Hg (10/28/24 07:48:00) Pulse Pressure: 61 mm Hg (10/28/24 07:48:00) Oxygen Saturation: 100 % (10/28/24 07:48:00) Liters per Minute: 2 L/min (10/28/24 07:48:00) Mode of Delivery (Oxygen): Nasal cannula (10/28/24 07:48:00) Early Warning Score: 2 (10/28/24 07:48:51) ? . Physical Exam General:??Alert, awake, not in?? acute cardiopulmonary distress. Respiratory:??Clear to auscultation??. No wheezing, rales or rhonchi. Cardiovascular:??Heart sounds normal. Regular rate and rhythm, no murmurs Gastrointestinal:??Abdomen soft, non-tender, non-distended. Normal bowel sounds. Neurologic:??Cranial nerves II-XII grossly intact. No focal neurological deficits.?? Skin:??No rashes or lesions. No edema. Musculoskeletal:??No cyanosis or clubbing. No gross deformities. Pending Results Add On Lab Order ordered on 10/22/2024 Add On Lab Order ordered on 10/22/2024 Basic Metabolic Panel ordered on 10/23/2024 Magnesium Level ordered on 10/23/2024 Patient Education Titles Web[employer] Patient Education - Heart Failure: Tracking Your Weight?? [employer] Patient Education - Heart Failure: Making Changes to Your Diet?? [employer] Patient Education - Discharge Instructions for Heart Failure?? Follow-Up Appointments Added Follow Up ?Time Frame ?Comments Rossi Arnett?2 to 3 weeks?You will get call for appointment Not on Staff, PCP?1 week: call to discuss follow up visit Post Discharge Care Diet: ??Cardiac diet ?? Activity: ??Ambulate with assistance 3 times a day unless otherwise specified ?? Prognosis: ??Fair ?? Home Health Face to Face *Denotes mandatory thornton ?? *I certify that this patient is under my care and that I or an allowed non- physician working with me had a face to face encounter with the patient on this date:??10/28/2024 12:47 ?? 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 *Select the indications for the discipline/s that are being arranged for this patient. Nursing (select all that apply): [_] None [x] Medication management (reconciliation, teaching)?? [x] Chronic disease management?? [_] Wound care and treatment?? [_] Home safety evaluation [_] Administer SQ/IM/IV medications?? [_] Cath care?? [_] Drain care?? [_] Trach or GT care?? Other _ Occupation Therapy (select all that apply): [_] None [x] ADL Management [x] Fall prevention training [_] Energy conservation [_] Cognitive training Other _ Physical Therapy (select all that apply): [_] None [x] Functional mobility training [x] Home exercise program to strengthen [_] Increase ROM?? [_x Falls prevention training [_] Home maintenance program for chronic disease Other _ Speech Therapy (select all that apply): [_] None [_] Swallow evaluation and training [_] Speech and language training [_] Cognitive training to process, organize, and/or recall information Other _ ? *Homebound due to (select all that apply): [x] Inability to leave home without assistance/supervision [_] Inability to ambulate without assistance [_] Pain [x] Decreased strength and endurance [_] Unsteady gait [_] Severe SOB and fatigue [_] Impaired transfers [_] Inability to negotiate stairs [_] Limited weight bearing [_] Mental status change? *Physician Signature:??Jeremy Banegas MD ?? *By signing this, I certify that I have personally evaluated the patient and agree with the findings and recommendations as documented above. ? Results Discharge Labs BLOOD COUNT & DIFF WBC 12.2 k/mm3 (High)?? 10/27/2024 00:29 RBC 3.97 m/mm3 (Low)?? 10/27/2024 00:29 Hgb 11.1 Gm/dL (Low)?? 10/27/2024 00:29 Hct 34.4 % (Low)?? 10/27/2024 00:29 MCV 86.6 femtoliters ()?? 10/27/2024 00:29 MCH 28.0 pg ()?? 10/27/2024 00:29 MCHC 32.3 Gm/dL (Low)?? 10/27/2024 00:29 Platelet Count 195 k/mm3 ()?? 10/27/2024 00:29 RDW-SD 45.6 femtoliters ()?? 10/27/2024 00:29 MPV 11.0 femtoliters ()?? 10/27/2024 00:29 Nucleated RBC (Automated) 0.0 #/100 WBC'S ()?? 10/27/2024 00:29 Abs. NRBC 0.0 k/mm3 ()?? 10/27/2024 00:29 Abs. Neut 6.3 k/mm3 ()?? 10/23/2024 12:17 Abs. Lymph 2.0 k/mm3 ()?? 10/23/2024 12:17 Abs. [place] 0.8 k/mm3 ()?? 10/23/2024 12:17 Abs. Eo 0.3 k/mm3 ()?? 10/23/2024 12:17 Abs. Baso 0.1 k/mm3 ()?? 10/23/2024 12:17 Neut % 66.6 % ()?? 10/23/2024 12:17 Lymph % 21.1 % ()?? 10/23/2024 12:17 [place] % 8.0 % ()?? 10/23/2024 12:17 Eos % 3.2 % ()?? 10/23/2024 12:17 Baso % 0.8 % ()?? 10/23/2024 12:17 Imm Gran 0.3 % ()?? 10/23/2024 12:17 Abs. Imm Gran 0.0 k/mm3 ()?? 10/23/2024 12:17 ?? CARDIAC Nt-Probnp 229 pg/mL ()?? 10/21/2024 11:35 High Sensitivity Troponin (HSTnT) 15 ng/L ()?? 10/22/2024 08:20 ?? CHEM GENERAL Sodium 139 mmol/L ()?? 10/28/2024 01:45 Potassium 3.9 mmol/L ()?? 10/28/2024 01:45 Chloride 99 mmol/L ()?? 10/28/2024 01:45 Bicarbonate Level 28 mmol/L ()?? 10/28/2024 01:45 Anion Gap 12 mmol/L ()?? 10/28/2024 01:45 Glucose Level 130 mg/dL (High)?? 10/28/2024 01:45 BUN 28 mg/dL (High)?? 10/28/2024 01:45 Creatinine-Blood 1.15 mg/dL ()?? 10/28/2024 01:45 Estimated GFR Creatinine 65 ML/MIN/1.73 M2 ()?? 10/28/2024 01:45 Calcium 7.8 mg/dL (Low)?? 10/28/2024 01:45 Magnesium 2.4 mg/dL (High)?? 10/25/2024 05:36 Protein, Total 6.8 Gm/dL ()?? 10/21/2024 11:35 Albumin 3.5 Gm/dL ()?? 10/21/2024 11:35 AG Ratio 1.1 ()?? 10/21/2024 11:35 Alkaline Phosphatase 97 units/L ()?? 10/21/2024 11:35 AST (SGOT) 25 units/L ()?? 10/21/2024 11:35 ALT (SGPT) 15 units/L ()?? 10/21/2024 11:35 Bilirubin, Total 0.4 mg/dL ()?? 10/21/2024 11:35 ?? COAG D-Dimer 1.97 mg/L FEU (High)?? 10/22/2024 08:19 ? MISC. CHEMISTRY Procalcitonin 0.06 ng/mL ()?? 10/22/2024 08:20 Hold Red Top SPECIMEN DISCARDED AFTER 1 WEEK ()?? 10/22/2024 08:19 Hold Gel Top SPECIMEN DISCARDED AFTER 1 WEEK ()?? 10/23/2024 12:17 ? URINE OTHER Est Creatinine Clearance 53.91 mL/min ()?? 10/28/2024 03:01 ? VIROLOGY Adenovirus by PCR NEGATIVE ()?? 10/21/2024 13:22 Coronavirus 229E by PCR (not COVID-19) NEGATIVE ()?? 10/21/2024 13:22 Coronavirus HKU1 by PCR (not COVID-19) NEGATIVE ()?? 10/21/2024 13:22 Coronavirus NL63 by PCR (not COVID-19) NEGATIVE ()?? 10/21/2024 13:22 Coronavirus OC43 by PCR (not COVID-19) NEGATIVE ()?? 10/21/2024 13:22 Human Metapneumovirus by PCR NEGATIVE ()?? 10/21/2024 13:22 Rhinovirus/Enterovirus by PCR NEGATIVE ()?? 10/21/2024 13:22 Influenza A by PCR NEGATIVE ()?? 10/21/2024 13:22 Influenza B by PCR NEGATIVE ()?? 10/21/2024 13:22 Parainfluenza 1 by PCR NEGATIVE ()?? 10/21/2024 13:22 Parainfluenza 2 by PCR NEGATIVE ()?? 10/21/2024 13:22 Parainfluenza 3 by PCR NEGATIVE ()?? 10/21/2024 13:22 Parainfluenza 4 by PCR NEGATIVE ()?? 10/21/2024 13:22 RSV by PCR NEGATIVE ()?? 10/21/2024 13:22 Bordetella Pertussis by PCR NEGATIVE ()?? 10/21/2024 13:22 Chlamydophila Pneumoniae by PCR NEGATIVE ()?? 10/21/2024 13:22 Mycoplasma Pneumoniae by PCR NEGATIVE ()?? 10/21/2024 13:22 COVID-19 (SARS-CoV-2) by PCR NEGATIVE ()?? 10/21/2024 13:22 Bordetella Parapertussis by PCR NEGATIVE ()?? 10/21/2024 13:22 ? Image ?XR Chest 2 Views Frontal and Lat??10/21/2024 11:40 by Jessica Delaney ?Borderline cardiac enlargement and mild central vascular congestion without overt edema or effusions. No x-ray evidence of pneumonia. ?US Doppler Ext Lower Venous Bilat??10/21/2024 14:15 by Emelia Mcginnis ?No evidence of deep venous thrombosis. ?CT Angio Chest??10/22/2024 18:09 by Jenni Mcgee ?1. No evidence of pulmonary embolism. 2. Scattered tree-in-bud type opacities both lungs with differential of infection and aspiration. These may also be more chronic with somewhat unlikely present on the thoracic spine CT 08/08/2024. Consider follow-up imaging in 3 months. ?? 35??minutes spent on discharge * Catherine Garcia: PERFORM Event Display: Discharge/Transfer Note Hospital Authored Date: [id number] Pulmonary Rehab Discharge Status Entered On: 10/28/2024 10:35 EDT Performed On: 10/28/2024 10:35 EDT by Catherine Garcia Pulmonary Rehab Discharge Status Discharge [facility]+ Network(v001) : [employer] [phone] Home care instructions : Call company when you get home. Catherine Garcia - 10/28/2024 10:35 EDT * Bernadine BRISCOE, Viridiana Abbasi: PERFORM Event Display: Patient Education/Instruction Authored Date: [id number] Inpatient Adult Discharge Instructions. [address] [id number] Name: BENJY MARIA : 1945?? Visit: 10/22/2024 14:17?? Current Date: 10/28/2024 13:34 ?? Account: [id number]?? Inpatient Adult Discharge Instructions We would like to thank you for allowing us to assist you with your healthcare needs. The following includes patient education materials and information regarding your injury/illness. Our entire staffstrives to provide an excellent experience for our patients and their families. PLEASE ENSURE YOU FOLLOW-UP PER THE INSTRUCTIONS BELOW! ?? YOUR OPINION IS IMPORTANT TO US! Please complete the survey you may receive by mail or email. Your feedback will be used to make improvements to the healthcare experiences of our patients and their families. Surveys are administered by [employer] ?? If further treatment with your primary care physician or another doctor is recommended, it is important for you to keep the appointment. Call your primary care physician or return to the Emergency Department immediately if your condition worsens, fails to improve, or new symptoms develop. If you need to find a doctor, you can call [facility] [employer] for a referral at [phone] or toll free at [phone] or log in to [email or web address].. ?? [facility], in keeping with [facility] guidance, no longer requires face masks for staff, patientsor visitors in most situations. Similiar to time spent indoors at other locations, there is the chance that you were exposed to repiratory viruses during your time with us (such as flu or COVID-19). If you develop symptoms concerning for a viral respiratory infection, please seek testing (and treatment if indicated) from your medical provider or home test kit. ?? You can view and manage your care through the patient portal or by using a health care daphne of your choosing. [employer] is a website that allows you to securely view your medical information including your hospital discharge summary, office visit summaries, medications and follow-up visits. You can also request appointments, renew medications, and request access to your medical information using a health care daphne of your choosing, or just ask a question. You are entitled to know the individuals who participated in your treatment. This information is available within your medical record and will be provided upon your request. You can enroll at [email or web address] or register d uring your next office visit. You have been discharged from [facility], Patient Care Unit: M7??. If you have any questions regarding these instructions, including results of studies pending, afteryou leave, please call us and we will be happy to assist you 21/10. [facility] Your Care Team Attending Physician Jeremy Banegas MD?? Consulting Providers Jeremy Banegas MD?? Discharging Providers Jeremy Banegas MD Reason for Your Visit Bilateral LE pain and CP along with increased SOB. Junky lung sounds.?? Your Diagnosis Uncomplicated opioid dependence Atypical angina Acute on chronic heart failure with preserved ejection fraction (HFpEF) Back pain, chronic BPH (benign prostatic hyperplasia) Chronic GERD Neuropathy Tests Performed Below is a partial list of the tests performed during your hospitalization. You may have had other tests and procedures not included in this list. Please discuss all test results with your provider. Basic Metabolic Panel BUN Calcium Level CBC CBC w/ Differential Comprehensive Metabolic Panel Creatinine D Dimer DIFFERENTIAL Electrolytes Glucose Level High??Sensitivity??Troponin T HOLD GEL TUBE HOLD RED TUBE Magnesium Level ProBNP PROCALCITONIN Respiratory Pathogen PCR with COVID-19 Troponin T, High Sensitivity CT Angio Chest US Doppler Ext Lower Venous Bilat XR Chest 2 Views Frontal and Lat Add On Lab Order?? B Type Natriuretic Peptide (NT-proBNP) (ProBNP)?? BUN?? Basic Metabolic Panel?? CBC?? CBC w/ Differential?? CT Angio Chest?? Calcium Level?? Comprehensive Metabolic Panel?? Creatinine?? D Dimer?? Electrolytes?? Glucose Level?? High??Sensitivity??Troponin T (Troponin T, High Sensitivity)?? Hold Gel Top Tube (HOLD GEL TUBE)?? Hold Red Top Tube (HOLD RED TUBE)?? Magnesium Level?? Manual Differential (DIFFERENTIAL)?? Procalcitonin Level (PROCALCITONIN)?? Respiratory Pathogen PCR with COVID-19?? US Doppler Ext Lower Venous Bilat?? Chest 2 Views Frontal and Lat (XR Chest 2 Views Frontal and Lat)?? Primary Care Provider Not on Staff, PCP?? Advance Directive Health Care Proxy on File Yes - Health Care Proxy Discharge Vitals Temperature: 97.6 DegF Height: 178 cm Pulse Rate: 62 bpm Weight: 97.4 kg Respiratory Rate: 18 br/min Body Mass Index:??31.88 kg/m2??Critical Systolic Blood Pressure: 117 mm Hg Body surface area: 2.23 Diastolic Blood Pressure: 56 mm Hg ?? Oxygen Saturation: 100 % ?? Studies Pending All studies ordered during this hospital stay have been completed unless listed below. Please discuss all pending results with your provider listed above in these instructions. ?? Add On Lab Order?? Basic Metabolic Panel?? Magnesium Level?? What to do next Instructions From Your Doctor Please start taking torsemide 20 mg daily in the morning. Check weight daily; if weight >2 lb in 1 days or 5 lab over period of week take additional torsemide 20mg in the afternoon and call cardio logy office. Follow-up with [facility] cardiology closely. ?? Orders??:Cardiac diet :Ambulate with assistance ??3 times a day ??unless otherwise specified :Fair? 10/28/24 12:51:00 EDT?? You Need to Schedule the Following Appointments Follow Up with??Rossi Arnett When:??Within 2 to 3 weeks Why: You will get call for appointment Where: [address] [facility] [place] [address]- [facility] (1) Follow Up with??Not on Staff, PCP When:??Within 1 week: call to discuss follow up visit Discharge Medications BENJY MARIA :1945 Visit Date:10/22/2024 Medications: Please continue your medications until treatment is completed or stopped by your provider. Medications not listed below should be discontinued. Discuss any questions related to medications with your provider. What How Much When Instructions Next Dose New Albuterol/ Ipratropium (albuterol- ipratropium 3 mg-0.5 mg/ 3 ml inhalation solution) 3 Milliliter Nebulized inhalation 4 times a day as needed for as needed for shortness of breath or wheezing Pickup at [facility] 3 needed New dapagliflozin (dapagliflozin 10 mg oral tablet) 10 Milligram Oral Daily Pickup at [place] [address] In the AM New Polyethylene Glycol 3350 (polyethylene glycol 3350 oral powder for reconstitution) 17 gram Oral Daily as needed for Constipation dissolve in water before taking ?? Pickup at [place] [address] needed New PredniSONE (predniSONE 20 mg oral tablet) 40 Milligram Oral Daily Duration: 2 Days Pickup at [place] [address] In the AM New torsemide (torsemide 20 mg oral tablet) 1 tab(s) Oral Daily Check weight daily; if weight >2 lb in 1 days or 5 lab over period of week take additional torsemide 20mg in the afternoon and call cardiology office. ?? Pickup at [place] [address] In the AM Changed Nystatin Topical (nystatin topical 149254 u/ gm powder) As needed for Rash 1 APPL TOPICALLY 2 TIMES A DAY ?? needed Unchanged Acetaminophen (acetaminophen 325 mg oral tablet) 650 Milligram Oral Every 4 hours as needed for Pain , Mild Temperature Greater than 100.5 ?? needed Unchanged Albuterol (Albuterol (Eqv-ProAir HFA) 90 mcg/ inh inhalation aerosol) INHALE 2 PUFFS EVERY 6 HOURS NEEDED FOR SHORTNESS OF BREATH OR WHEEZING ?? needed Unchanged Atorvastatin (atorvastatin 40 mg oral tablet) 1 tab(s) Oral Daily In the AM Unchanged Celecoxib (celecoxib 200 mg oral capsule) 1 capsule Oral Daily at Bedtime Bedtime tonight Unchanged Clopidogrel (Plavix 75 mg oral tablet) 1 tab(s) Oral Daily In the AM Unchanged Famotidine (famotidine 20 mg oral tablet) 1 tab(s) Oral Daily In the AM Unchanged fluticason/ umeclidinium/ vilant (Trelegy Ellipta 200 mcg-62.5 mcg-25 mcg/ inh inhalationpowder) 1 puff(s) Inhalation Daily at the same time every day ?? Pickup at [facility] 3 In the AM Unchanged Nitroglycerin (nitroglycerin 0.3 mg sublingual tablet) 1 tab(s) Sublingual Every 5 minutes as needed for as needed for chest pain not to exceed 3 doses/ 15 min--if pain persists, seek medical attention ?? needed Unchanged Oxycodone (oxyCODONE 5 mg oral tablet) 1 tab(s) Oral Every 4 hours as needed for Pain , Moderate needed Unchanged Oxycodone (Xtampza ER 18 mg oral capsule, extended release) 1 capsule Oral Twice a day Duration: 7 Days with food ?? Bedtime tonight Unchanged Pantoprazole (pantoprazole 40 mg oral delayed release tablet) 1 tab(s) Oral Daily In the AM Unchanged Pregabalin (Lyrica 100 mg oral capsule) 1 capsule Oral Twice a day Bedtime tonight Unchanged Senna (senna 187 mg oral tablet) 1 tab(s) Oral Twice a day as needed for Constipation needed Unchanged Tamsulosin (tamsulosin 0.4 mg oral capsule) 1 capsule Oral Daily In the AM Pharmacy Information [facility] 3: [address] [place], [place] [id number] [phone] ?? What How Much When Comments Stop Taking Amoxicillin-Clavulanate (Augmentin 875 Tablet) 1 tab(s) Oral Twice a day Duration: 2 Days Stop Taking Carbamide Peroxide Otic (Debrox 6.5% Otic) 5 Drops Both ears Twice a day Duration: 4 Days Stop Taking dexlansoprazole (dexlansoprazole 60 mg oral delayed release capsule) 1 capsule Oral Daily Stop Taking Furosemide (furosemide 40 mg oral tablet) 1 tab(s) Oral Daily Stop Taking Lisinopril (lisinopril 5 mg oral tablet) 1 tab(s) Oral Daily Stop Taking Polymyxin B-Trimethoprim Ophthalmic (Polymyxin B/ Trimethoprim Ophth) 2 Drops Both eyes Twice a day Stop Taking Potassium Chloride (Potassium Chloride (Vub-Txlh-Hzh 10) 10 mEq oral tablet, extended release) 1 tab(s) Oral Daily Prescription Given During Visit Albuterol/Ipratropium (albuterol-ipratropium 3 mg-0.5 mg/3 ml inhalation solution) - 3 mL, Neb, 4 times a day, # 120 each, 0 Refills, [place] [address] [phone]?? Polyethylene Glycol 3350 (polyethylene glycol 3350 oral powder for reconstitution) - 17 Gm, By Mouth, Daily, # 30 each, 0 Refills, dissolve in water before taking, [place] [address] [phone]?? PredniSONE (predniSONE 20 mg oral tablet) - 40 mg, By Mouth, Daily, # 4 tablet, 0 Refills, [place] [address] [phone]?? dapagliflozin (dapagliflozin 10 mg oral tablet) - 10 mg, By Mouth, Daily, # 90 tablet, 0 Refills, [place] [address] [phone]?? fluticason/umeclidinium/vilant (Trelegy Ellipta 200 mcg-62.5 mcg-25 mcg/inh inhalation powder) - 1 puffs, Inhalation, Daily, # 30 each, 0 Refills, at the same time every day, [place] [address] [phone]?? torsemide (torsemide 20 mg oral tablet) - 1 tablet = 20 mg, By Mouth, Daily, # 30 tablet, 0 Refills, Check weight daily; if weight >2 lb in 1 days or 5 lab over period of week take additional torsemide 20mg in the afternoon and call cardiology office., [place] [address] [phone]?? Laboratory Results Below is a partial list of the most recent Laboratory test results done prior to this discharge. You may have had other tests and procedures not included in this list. Please discuss all test resultswith your provider. Est Creatinine Clearance - 53.91 mL/min (10/28/2024) Basic Metabolic Panel (10/27/2024) ???Sodium - 133 mmol/L???Potassium - 4.2 mmol/L???Chloride - 96 mmol/L???Bicarbonate Level - 24 mmol/L???Anion Gap - 13 mmol/L???Glucose Level - 160 mg/dL???BUN - 25 mg/dL???Creatinine-Blood - 1.22 mg/dL???Estimated GFR Creatinine - 60 ML/MIN/1.73 M2???Calcium - 8.5 mg/dL BUN (10/28/2024) ???BUN - 28 mg/dL Calcium Level (10/28/2024) ???Calcium - 7.8 mg/dL CBC (10/27/2024) ???WBC - 12.2 k/mm3???RBC - 3.97 m/mm3???Hgb - 11.1 Gm/dL???Hct - 34.4 %???MCV - 86.6 femtoliters???MCH - 28.0 pg???MCHC - 32.3 Gm/dL???Platelet Count - 195 k/mm3???RDW-SD - 45.6 femtoliters???MPV - 11.0 femtoliters???Nucleated RBC (Automated) - 0.0 #/100 WBC'S???Abs. NRBC - 0.0 k/mm3 CBC w/ Differential (10/23/2024) ???WBC - 9.4 k/mm3???RBC - 4.23 m/mm3???Hgb - 11.9 Gm/dL???Hct - 37.4 %???MCV - 88.4 femtoliters???MCH - 28.1 pg???MCHC - 31.8 Gm/dL???Platelet Count - 216 k/mm3???RDW-SD - 47.2 femtoliters???MPV - 10.9 femtoliters???Nucleated RBC (Automated) - 0.0 #/100 WBC'S???Abs. NRBC - 0.0 k/mm3???Abs. Neut - 6.3 k/mm3???Abs. Lymph - 2.0 k/mm3???Abs. [place] - 0.8 k/mm3???Abs. Eo - 0.3 k/mm3???Abs. Baso - 0.1 k/mm3???Neut % - 66.6 %???Lymph % - 21.1 %???[place] % - 8.0 %???Eos % - 3.2 %???Baso % - 0.8 %???Imm Gran - 0.3 %???Abs. Imm Gran - 0.0 k/mm3 Comprehensive Metabolic Panel (10/21/2024) ???Sodium - 140 mmol/L???Potassium - 3.7 mmol/L???Chloride - 101 mmol/L???Bicarbonate Level - 27 mmol/L???Anion Gap - 12 mmol/L???Glucose Level - 134 mg/dL???BUN - 15 mg/dL???Creatinine-Blood - 0.97 mg/dL???Estimated GFR Creatinine - 79 ML/MIN/1.73 M2???Calcium - 9.1 mg/dL???Protein, Total - 6.8 Gm/ dL???Albumin - 3.5 Gm/dL???AG Ratio - 1.1???Alkaline Phosphatase - 97 units/L???AST (SGOT) - 25 units/L???ALT (SGPT) - 15 units/L???Bilirubin, Total - 0.4 mg/dL Creatinine (10/28/2024) ???Creatinine-Blood - 1.15 mg/dL???Estimated GFR Creatinine - 65 ML/MIN/1.73 M2 D Dimer (10/22/2024) ???D-Dimer - 1.97 mg/L FEU DIFFERENTIAL (10/22/2024) ???Abs. Neut - 13.5 k/mm3???Abs. Lymph - 1.4 k/mm3???Abs. [place] - 1.0 k/mm3???Abs. Eo - 0.0 k/mm3???Abs. Baso - 0.0 k/mm3???Neut % - 84.6 %???Lymph % - 8.7 %???[place] % - 6.0 %???Eos % - 0.0 %???Baso % - 0.3 %???Imm Gran - 0.4 %???Abs. Imm Gran - 0.1 k/mm3 Electrolytes (10/28/2024) ???Sodium - 139 mmol/L???Potassium - 3.9 mmol/L???Chloride - 99 mmol/L???Bicarbonate Level - 28 mmol/L???Anion Gap - 12 mmol/L Glucose Level (10/28/2024) ???Glucose Level - 130 mg/dL High??Sensitivity??Troponin T (10/21/2024) ???High Sensitivity Troponin (HSTnT) - 16 ng/L HOLD GEL TUBE (10/23/2024) ???Hold Gel Top - SPECIMEN DISCARDED AFTER 1 WEEK HOLD RED TUBE (10/22/2024) ???Hold Red Top - SPECIMEN DISCARDED AFTER 1 WEEK Magnesium Level (10/25/2024) ???Magnesium - 2.4 mg/dL ProBNP (10/21/2024) ???Nt-Probnp - 229 pg/mL PROCALCITONIN (10/22/2024) ???Procalcitonin - 0.06 ng/mL Respiratory Pathogen PCR with COVID-19 (10/21/2024) ???Adenovirus by PCR - NEGATIVE???Coronavirus 229E by PCR (not COVID-19) - NEGATIVE???Coronavirus HKU1 by PCR (not COVID-19) - NEGATIVE???Coronavirus NL63 by PCR (not COVID-19) - NEGATIVE???Coronavirus OC43 by PCR (not COVID-19) - NEGATIVE???Human Metapneumovirus by PCR - NEGATIVE???Rhinovirus/Enterovirus by PCR - NEGATIVE???Influenza A by PCR - NEGATIVE???Influenza B by PCR - NEGATIVE???Parainfluenza 1 by PCR - NEGATIVE???Parainfluenza 2 by PCR - NEGATIVE???Parainfluenza 3 by PCR - NEGATIVE???Parainfluenza 4 by PCR - NEGATIVE???RSV by PCR - NEGATIVE???Bordetella Pertussis by PCR - NEGATIVE??? Chlamydophila Pneumoniae by PCR - NEGATIVE???Mycoplasma Pneumoniae by PCR - NEGATIVE???COVID-19 (SARS-CoV-2) by PCR - NEGATIVE???Bordetella Parapertussis by PCR - NEGATIVE Troponin T, High Sensitivity (10/22/2024) ???High Sensitivity Troponin (HSTnT) - 15 ng/L You will be contacted within 72 hours with your results. Allergies (NKA means No Known Allergies) Duc morphine vancomycin Problems Active Problems??(16) (HFpEF) heart failure with preserved ejection fraction?? BPH with urinary obstruction?? CAD in mechoopda artery?? CKD (chronic kidney disease)?? Conjunctivitis?? COPD exacerbation?? COPD without exacerbation?? GERD without esophagitis?? HLD (hyperlipidemia)?? HTN (hypertension)?? Hypoxia?? Metabolic encephalopathy?? Multifocal pneumonia?? Neuropathy?? Obese class I?? TIA (transient ischemic attack)?? Education Materials Below is the list of Educational Leaflet Providered with your Discharge Instructions. [employer] Patient Education - Prednisone?? [employer] Patient Education - Dapagliflozin?? [employer] Patient Education - Torsemide?? [employer] Patient Education - Discharge Instructions:??COPD?? [employer] Patient Education - COPD Zones?? [employer] Patient Education - Heart Failure Zones?? [employer] Patient Education - Heart Failure Discharge Instructions for Heart Failure?? [employer] Patient Education - Discharge Instructions: Eating a Low-Salt Diet?? [employer] Patient Education - Heart Failure: Tracking Your Weight?? [employer] Patient Education - Heart Failure: Making Changes to Your Diet?? [employer] Patient Education - Discharge Instructions for Heart Failure?? Valuables and Belongings I fully understand and agree that [facility] accepts no responsibility for all my personal property including clothing, toilet articles, radios, jewelry, dentures, hearing aids, rings, money, or any other property that is in my possession or is brought to me after admission. I understand certain valuables may be placed in a hospital safe for a short period of time. I understand that the hospital is not liable for loss or damage due to accident, fire, or other natural occurrence while said property is in the safe. I accept full responsibility for any personal property that I keep with me, and will not hold the hospital responsible in case of loss or disappearance. I acknowledge that i have been encouraged to send valuables and belongings home. ?? Review of Valuable and Belonging List: With patient, With witness Date for Pt to Sign Valuables/Belongings: 10/21/24 16:17:00 ?? Other Discharge Information ? Case Management Discharge Plan?? Discharge Plan?? Discharge Agency Information?? Discharge Level of Care at Discharge: Homehealth/VNA Name of Agency #1: [facility] Dis[facility] Rx Program: Discharge Prescription Program Agency [employer] #1: Intake Discharge V[facility]/Hospice/Home Care: [facility] [phone] Service Categories #1: Physical Therapy, Senior Living Discharge Medical Equipment Companies: [employer] [phone] Service Comments #1: [facility] [phone] will provide your care after discharge, if any questions or concerns please contact the agency directly. ?? Pulmonary Rehab Status?? Pulmonary Rehab Discharge Status?? Respiratory Rate: 18 br/min Discharge Medical Equipment Companies: [employer] [phone] Home care instructions: Call company when you get home. ? Common Emergency Awareness Tips IS IT A STROKE? Act FAST and Check for these signs: FACE Does the face look uneven? ARM Does one arm drift down? SPEECH Does their speech sound strange? TIME Call at any sign of stroke ?? Heart Attack Signs Chest discomfort: Most heart attacks involve discomfort in the center of the chest and lasts more than a few minutes, or goes away and comes back. It can feel like uncomfortable pressure, squeezing, fullness or pain. Discomfort in upper body: Symptoms can include pain or discomfort in one or both arms, back, neck, jaw or stomach. Shortness of breath: With or without discomfort. Other signs: Breaking out in a cold sweat, nausea, or lightheaded. Remember, MINUTES DO MATTER. If you experience any of these heart attack warning signs, call to get immediate medical attention! ?? Smoking can increase your chances of developing chronic health problems and can cause harmful effects to other family members in your house. If you smoke, you are strongly encouraged to quit. Please call [employer] at [phone] or 5-178-587[employer] ([phone]) or log in to [email or web address] for referrals to smoking cessation programs. ?? 988 Suicide & Crisis Lifeline is available 21/10 if you or someone you know needs to find a reason to keep living. By calling 988 you'll be connected to a skilled, trained counselor at a crisis center in your area. INPATIENT DISCHARGE INSTRUCTIONS SIGNATURE PAGE BENJY MARIA Location:[facility] Registration Date and Time:10/22/2024 14:17 EDT Primary Care Physician: Not on Staff, PCP Attending Physician: Jeremy Banegas MD, I BENJY MARIA, have received the above patient education materials/instructions and have verbalized understanding. If ambulance or transport services are being used I further acknowledge being given a choice of service. ?? If you need to contact me, please call me at this number: . Patient/Bridge Manager Name: Patient/Bridge Manager Signature: Relationship to Patient: Witness Name/Signature: Date: * Jeremy Banegas MD: PERFORM, SIGN, VERIFY Event Display: Patient Education Handout Authored Date: [id number] * Viridiana Colindres RN: PERFORM Event Display: Patient Education Leaflets Authored Date: [id number] Prednisone ?? [id number] Prednisone WHY is this medicine prescribed? Prednisone is used alone or with other medications to treat the symptoms of low corticosteroid levels (lack of certain substances that are usually produced by the body and are needed for normal body functioning). Prednisone is also used to treat other conditions in patients with normal corticosteroid levels. These conditions include certain types of arthritis; severe allergic reactions; multiple sclerosis (a disease in which the nerves do not function properly); lupus (a disease in which the body attacks many of its own organs); and certain conditions that affect the lungs, skin, eyes, kidneys blood, thyroid, stomach, and intestines. Prednisone is also sometimes used to treat the symptoms of certain types of cancer. Prednisone is in a class of medications called corticosteroids. It works to treat patients with low levels of corticosteroids by replacing steroids that are normally produced naturally by the body. It works to treat other conditions by reducing swelling and redness and by changing the way the immune system works. HOW should this medicine be used? Prednisone comes as a tablet, delayed-release tablet, as a solution (liquid), and as a concentratedsolution to take by mouth. Prednisone is usually taken with food one to four times a day or once every other day. Your doctor will probably tell you to take your dose(s) of prednisone at certain time(s) of day every day. Your personal dosing schedule will depend on your condition and on how you respond to treatment. Follow the directions on your prescription label carefully, and ask your doctor or pharmacist to explain any part you do not understand. Take prednisone exactly as directed. Do not take more or less of it or take it more often or for a longer period of time than prescribed by your doctor. If you are taking the concentrated solution, use the specially marked dropper that comes with the medication to measure your dose. You may mix the concentrated solution with juice, other flavored liquids, or soft foods such as applesauce. Swallow the delayed-release tablet whole; do not chew or crush it. Your doctor may change your dose of prednisone often during your treatment to be sure that you are always taking the lowest dose that works for you. Your doctor may also need to change your dose if you experience unusual stress on your body such as surgery, illness, infection, or a severe asthma attack. Tell your doctor if your symptoms improve or get worse or if you get sick or have any changes in your health during your treatment. If you are taking prednisone to treat a long-lasting disease, the medication may help control your condition but will not cure it. Continue to take prednisone even if you feel well. Do not stop taking prednisone without talking to your doctor. If you suddenly stop taking prednisone, your body may not have enough natural steroids to function normally. This may cause symptoms such as extreme tiredness, weakness, slowed movements, upset stomach, weight loss, changes in skin color, sores in the mouth, and craving for salt. Call your doctor if you experience these or other unusual symptoms while you are taking decreasing doses of prednisone or after you stop taking the medication. Are there OTHER USES for this medicine? Prednisone is also sometimes used with antibiotics to treat a certain type of pneumonia in patientswith acquired immunodeficiency syndrome (AIDS). Talk to your doctor about the risks of using this drug for your condition. This medication may be prescribed for other uses; ask your doctor or pharmacist for more information. What SPECIAL PRECAUTIONS should I follow? Before taking prednisone, ??? tell your doctor and pharmacist if you are allergic to prednisone, any other medications, or any of the inactive ingredients in prednisone tablets or solutions. Ask your doctor or pharmacist for a list of the inactive ingredients. ??? tell your doctor and pharmacist what prescription and nonprescription medications, vitamins, nutritional supplements, and herbal products you are taking or planto take while taking prednisone. Your doctor may need to change the doses of your medications or monitor you carefully for side effects.) ??? the following nonprescription or herbal products may interact with prednisone: [place]'s wort, cimetidine (Tagamet), aspirin. Be sure to let your doctor and pharmacist know that you are taking these medications before you start taking prednisone. Do not start any of these medications while taking prednisone without discussing with your healthcare provider.. ??? tell your doctor if you have an eye infection now or have ever had eye infections that come and go and if you have or have ever had threadworms (a type of worm that can live inside the body); diabetes; high blood pressure; emotional problems; mental illness; myasthenia gravis (a condition inwhich the muscles become weak); osteoporosis (condition in which the bones become weak and fragile and can break easily); seizures; tuberculosis (TB); ulcers; or liver, kidney, intestinal, heart, or t hyroid disease. ??? tell your doctor if you are , plan to become , or are breast-feeding. If you become while taking prednisone, call your doctor. ??? if you are having surgery, including dental surgery, or need emergency medical treatment, tell the doctor, dentist, or medical staff that you are taking or have recently stopped taking prednisone. You should carry a card orwear a bracelet with this information in case you are unable to speak in a medical emergency. ??? do not have any vaccinations (shots to prevent diseases) without talking to your doctor. ??? you should know that prednisone may decrease your ability to fight infection and may prevent you from developing symptoms if you get an infection. Stay away from people who are sick and wash your hands often while you are taking this medication. Be sure to avoid people who have chicken pox or measles. Call your doctor immediately if you think you may have been around someone who had chicken pox or measles. What SPECIAL DIETARY instructions should I follow? Your doctor may instruct you to follow a low-salt, high potassium, or high calcium diet. Your doctor may also prescribe or recommend a calcium or potassium supplement. Follow these directions carefully. Talk to your doctor about eating grapefruit and drinking grapefruit juice while you are taking thismedication. What should I do IF I FORGET to take a dose? When you start to take prednisone, ask your doctor what to do if you forget to take a dose. Write down these instructions so that you can refer to them later. Call your doctor or pharmacist if you miss a dose and do not know what to do. Do not take a double dose to make up for a missed dose. What SIDE EFFECTS can this medicine cause? Some side effects can be serious. If you experience any of the following symptoms, call your doctorimmediately: ??? vision problems ??? eye pain, redness, or tearing ??? sore throat, fever, chills, cough, or other signs of infection ??? seizures ??? depression ??? loss of contact with reality ??? confusion ???muscle twitching or tightening ??? shaking of the hands that you cannot control ??? numbness, burning, or tingling in the face, arms, legs, feet, or hands ??? upset stomach ??? vomiting ??? lightheadedness ??? irregular heartbeat ??? sudden weight gain ??? shortness of breath, especially during thenight ??? dry, hacking cough ??? swelling or pain in the stomach ??? swelling of the eyes, face, lips, tongue, throat, arms, hands, feet, ankles, or lower legs ??? difficulty breathing or swallowing ??? rash ??? hives ??? itching Prednisone may slow growth and development in children. Your child's doctor will watch his or her growth carefully. Talk to your child's doctor about the risks of giving prednisone to your child. Prednisone may increase the risk that you will develop osteoporosis. Talk to your doctor about the risks of taking prednisone and about things that you can do to decrease the chance that you will develop osteoporosis. Some patients who took prednisone or similar medications developed a type of cancer called Kaposi'ssarcoma. Talk to your doctor about the risks of taking prednisone. Prednisone may cause other side effects. Call your doctor if you have any unusual problems while you are taking this medication. If you experience a serious side effect, you or your doctor may send a report to the Food and Drug Administration's (FDA) MedWatch Adverse Event Reporting program online (https://www.fda.gov/Safety/MedWatch) or by phone ( ). What should I know about STORAGE and DISPOSAL of this medication? Keep this medication in the container it came in, tightly closed, and out of reach of children. Store it at room temperature and away from excess heat and moisture (not in the bathroom). Keep all medication out of sight and reach of children as many containers are not child-resistant. Always lock safety caps. Place the medication in a safe location ??? one that is up and away and outof their sight and reach. https://www.[employer].org Dispose of unneeded medications in a way so that pets, children, and other people cannot take them.Do not flush this medication down the toilet. Use a medicine take-back program. Talk to your pharmacist about take-back programs in your community. Visit the FDA's Safe Disposal of Medicines website h ttps://goo.gl/c4Rm4p for more information. What should I do in case of OVERDOSE? In case of overdose, call the poison control helpline at . Information is also available online at https://www.poisonhelp.org/help. If the victim has collapsed, had a seizure, has trouble breathing, or can't be awakened, immediately call emergency services at [phone]. What OTHER INFORMATION should I know? Keep all appointments with your doctor and the laboratory. Your doctor will order certain lab teststo check your body's response to prednisone. If you are having any skin tests such as allergy tests or tuberculosis tests, tell the doctor or resident care technician that you are taking prednisone. Do not let anyone else take your medication. Ask your pharmacist any questions you have about refilling your prescription. Keep a written list of all of the prescription and nonprescription (bclr-muz-nfstdyk) medicines, vitamins, minerals, and dietary supplements you are taking. Bring this list with you each time you visit a doctor or if you are admitted to the hospital. You should carry the list with you in case of xochitl rgencies. Brand Name(s): ??? April? Cortan? Deltasone? Orasone? Prednisone Intensol??? Sterapred? Sterapred?? DS also available generically ? This branded product is no longer on the market. Generic alternatives may be available. ?? This report on medications is for your information only, and is not considered individual patient advice. Because of the changing nature of drug information, please consult your physician or pharmacist about specific clinical use. [employer] represents that the information provided hereunder was formulated with a reasonable standard of care, and in conformity with professional standards in the field. [employer] makes no representations or warranties, express or implied, including, but not limited to, any implied warranty of merchantability and/or fitness for a particular purpose, with respect to such information and specifically disclaims all such warranties. Users are advised that decisions regarding drug therapy are complex medical decisions requiring the independent, informed decision of an appropriate health rn complex care, and the information is provided for informational purposes only. The entire monograph for a drug should be reviewed for a thorough understanding of the drug's actions, uses and side effects. The [employer] does not endorse or recommend the use of any drug.The information is not a substitute for medical care. AHFS?? Patient Medication Information???. ?? Copyright, 2023. [employer]??, [address], [address], [place], [place]. All Rights Reserved. Duplication for commercial use must be authorized by [facility]. Selected Revisions: September 18, 2023. AHFS?? Patient Medication Information???. ?? Copyright, 2024 ?? * Bernadine BRISCOE, Viridiana Abbasi: PERFORM Event Display: Patient Education Leaflets Authored Date: [id number] Dapagliflozin ?? [id number] Dapagliflozin WHY is this medicine prescribed? Dapagliflozin is used ??? to lower blood sugar in people with type 2 diabetes (condition in which blood sugar is too highbecause the body does not make or use insulin normally). ??? to reduce the risk of being hospitalized for heart failure in certain adults with type 2 diabetes ??? to reduce the risk of being hospitalized for heart failure and in adults with heart failure ??? to reduce the risk of worsening ofkidney disease, being hospitalized for heart failure, and in certain adults with kidney disease Dapagliflozin is in a class of medications called sodium-glucose co-transporter 2 (SGLT2) inhibitors. It lowers blood sugar by causing the kidneys to get rid of more glucose in the urine. Dapagliflozin is not used to treat type 1 diabetes (condition in which the body does not produce insulin and, therefore, cannot control the amount of sugar in the blood) or diabetic ketoacidosis (a serious condition that may develop if high blood sugar is not treated). Over time, people who have diabetes and high blood sugar can develop serious or life-threatening complications, including heart disease, stroke, kidney problems, nerve damage, and eye problems. Taking dapagliflozin, making lifestyle changes (e.g., diet, exercise, quitting smoking), and regularly checking your blood sugar may help to manage your diabetes and improve your health. This therapy may also decrease your chances of having a heart attack, stroke, or other diabetes-related complications such as kidney failure, nerve damage (numb, cold legs or feet; decreased sexual ability in men and women), eye problems, including changes or loss of vision, or gum disease. Your doctor and other healt hcare providers will talk to you about the best way to manage your diabetes. HOW should this medicine be used? Dapagliflozin comes as a tablet to take by mouth. Take with or without food once a day. Take dapagliflozin at around the same time every day. Take dapagliflozin exactly as directed. Do not take more or less of it or take it more often than prescribed by your doctor. Your doctor may start you on a low dose of dapagliflozin and increase your dose if needed. Dapagliflozin helps to control your condition but does not cure it. Continue to take dapagliflozin even if you feel well. Do not stop taking dapagliflozin without talking to your doctor. You will be given you the Medication Guide when you begin treatment with dapagliflozin and each time you refill your prescription. Read the information carefully and ask your doctor or pharmacist if you have any questions. You can also visit https://www.fda.gov/Drugs/DrugSafety/wmt208180.htm to obtain the Medication Guide. Are there OTHER USES for this medicine? This medication may be prescribed for other uses; ask your doctor or pharmacist for more information. What SPECIAL PRECAUTIONS should I follow? Before taking dapagliflozin, ??? tell your doctor and pharmacist if you are allergic to this drug, any part of this drug, or anyother drugs, foods or substances. Tell your doctor or pharmacist about the allergy and what symptoms you had. ??? tell your doctor and pharmacist what other prescription and nonprescription medications, vitamins, nutritional supplements, and herbal products you are taking or plan to take. Your doctor may need to change the doses of your medications or monitor you carefully for side effects. ??? tell your doctor if you regularly drink alcohol or sometimes drink large amounts of alcohol in a short time (binge drinking), if you are on a low sodium diet, or if you have an infection. Also tell your doctor if you have or have ever had heart failure, pancreatic disease including pancreatitis (swelling of the pancreas) or have had surgery on your pancreas, urinary tract infections or problems urinating, low blood pressure, yeast infections in the genital area, or kidney or liver disease. If youare male, tell your doctor if you have never been circumcised. Also, tell your doctor if you are eating or drinking less due to illness, surgery or a change in your diet; if you are following a ketogenic diet (a high fat, low carbohydrate diet); or have recently had diarrhea, vomiting, been in the sun too long, or have been sweating a lot, which may cause dehydration (loss of a large amount of body fluids). ??? tell your doctor if you are , plan to become , or are .Do not breastfeed while you are taking dapagliflozin. If you become while taking dapagliflozin, call your doctor. ??? if you are having surgery, including dental surgery, tell the doctor or dentist that you are taking dapagliflozin. Your doctor will probably tell you to stop taking dapagliflozin at least 3 days before a surgery. ??? alcohol may cause a change in blood sugar. Ask your doctor about the safe use of alcoholic beverages while you are taking dapagliflozin. ??? you should know that dapagliflozin may cause dizziness, lightheadedness, and fainting when you get up too quickly from a lying position. If you have this problem, call your doctor. This problem is more common when you first start taking dapagliflozin. To avoid this problem, get out of bed slowly, resting your feet on the floor for a few minutes before standing up. ??? ask your doctor what to do if you get sick,develop an infection or fever, experience unusual stress, or are injured. These conditions can affec t your blood sugar and the amount of dapagliflozin you may need. What SPECIAL DIETARY instructions should I follow? Be sure to follow all exercise and dietary recommendations made by your doctor or dietitian. It is important to eat a healthful diet and exercise regularly. Follow your doctor's instructions about drinking enough fluids throughout the day while you are on this medication. What should I do IF I FORGET to take a dose? Take the missed dose as soon as you remember it. However, if it is almost time for the next dose, skip the missed dose and continue your regular dosing schedule. Do not take a double dose to make up for a missed one. What SIDE EFFECTS can this medicine cause? Dapagliflozin may cause side effects. Tell your doctor if any of these symptoms are severe or do not go away: ??? urinating a lot, including at night ??? stuffy or runny nose ??? sore throat ??? leg or arm pain ??? constipation Some side effects can be serious. If you experience any of these symptoms, call your doctor immediately: ??? frequent, urgent, burning, or painful urination; urine that is cloudy, red, pink, or brown; strong smelling urine; decrease in amount of urine; fever, back pain, nausea or vomiting ??? dry mouth,dark urine, decreased sweating, dry skin, and other signs of dehydration ??? pelvic or rectal pain ??? (in women) vaginal odor, white or yellowish vaginal discharge (may be lumpy or look like cottage cheese), or vaginal itching ??? (in men) redness, itching, or swelling of the penis; rash on the penis; foul smelling discharge from the penis; or pain in the skin around the penis ??? feeling tired,weak, or uncomfortable; along with a fever and pain, tenderness, redness, and swelling of the genitals or the area between the genitals and the rectum If you experience any of the following symptoms, stop taking dapagliflozin and call your doctor immediately or get emergency medical treatment: ??? rash; hives; itching; difficulty breathing or swallowing; hoarseness; or swelling of the face, throat, tongue, lips, mouth, or eyes If you experience any of the following symptoms of ketoacidosis, stop taking dapagliflozin and callyour doctor immediately or get emergency medical treatment. If possible, check for ketones in your urine if you have these symptoms, even if your blood sugar is less than 250 mg/dL: ??? nausea, vomiting, stomach-area pain, tiredness, or difficulty breathing Dapagliflozin can cause dehydration. It is important that you drink plenty of water while taking dapagliflozin. Talk to your doctor or pharmacist about the right amount of water to drink to prevent dehydration while taking dapagliflozin. Dapagliflozin may cause other side effects. Call your doctor if you have any unusual problems whiletaking this medication. If you experience a serious side effect, you or your doctor may send a report to the Food and Drug Administration's (FDA) MedWatch Adverse Event Reporting program online (https://www.fda.gov/Safety/MedWatch) or by phone ( ). What should I know about STORAGE and DISPOSAL of this medication? Keep this medication in the container it came in, tightly closed, and out of reach of children. Store it at room temperature and away from excess heat and moisture (not in the bathroom). What should I do in case of OVERDOSE? In case of overdose, call the poison control helpline at . Information is also available online at https://www.poisonhelp.org/help. If the victim has collapsed, had a seizure, has trouble breathing, or can't be awakened, immediately call emergency services at [phone]. What OTHER INFORMATION should I know? Keep all appointments with your doctor and the laboratory. Your doctor will probably order certain laboratory test before and during your treatment to check your body's response to dapagliflozin. Your blood sugar levels should be checked regularly to determine your response to dapagliflozin. Your doctor will order other lab tests, including glycosylated hemoglobin (HbA1c), to check your response to dapagliflozin. Your doctor will also tell you how to check your response to this medication by measuring your blood sugar levels at home. Follow these instructions carefully. Before having any laboratory test, tell your doctor and the laboratory personnel that you are taking dapagliflozin. Because of the way this medication works, your urine may test positive for glucose. You should always wear a diabetic identification bracelet to be sure you get proper treatment in anemergency. Do not let anyone else take your medication. Ask your pharmacist any questions you have about refilling your prescription. Keep a written list of all of the prescription and nonprescription (treg-yga-fqcdoka) medicines, vitamins, minerals, and dietary supplements you are taking. Bring this list with you each time you visit a doctor or if you are admitted to the hospital. You should carry the list with you in case of xochitl rgencies. Brand Name(s): ??? Farxiga? Qtern?? (as a combination product containing Dapagliflozin, Saxagliptin) ??? Qternmet?? XR (as a combination product containing Dapagliflozin, Metformin, Saxagliptin)? Xigduo?? XR (as a combination product containing Dapagliflozin, Metformin) ? This branded product is no longer on the market. Generic alternatives may be available. ?? This report on medications is for your information only, and is not considered individual patient advice. Because of the changing nature of drug information, please consult your physician or pharmacist about specific clinical use. [employer] represents that the information provided hereunder was formulated with a reasonable standard of care, and in conformity with professional standards in the field. [employer] makes no representations or warranties, express or implied, including, but not limited to, any implied warranty of merchantability and/or fitness for a particular purpose, with respect to such information and specifically disclaims all such warranties. Users are advised that decisions regarding drug therapy are complex medical decisions requiring the independent, informed decision of an appropriate health rn complex care, and the information is provided for informational purposes only. The entire monograph for a drug should be reviewed for a thorough understanding of the drug's actions, uses and side effects. The [employer] does not endorse or recommend the use of any drug.The information is not a substitute for medical care. AHFS?? Patient Medication Information???. ?? Copyright, 2023. [employer]??, [address], [address], [place], [place]. All Rights Reserved. Duplication for commercial use must be authorized by [facility]. Selected Revisions: August 12, 2024. AHFS?? Patient Medication Information???. ?? Copyright, 2024 ?? * Bernadine BRISCOE, Viridiana Abbasi: PERFORM Event Display: Patient Education Leaflets Authored Date: [id number] Torsemide ?? [id number] Torsemide WHY is this medicine prescribed? Torsemide is used alone or in combination with other medications to treat high blood pressure. Torsemide is used to treat edema (fluid retention; excess fluid held in body tissues) caused by various medical problems, including heart, kidney, or liver disease. Torsemide is in a class of medications called diuretics ('water pills'). It works by causing the kidneys to get rid of unneeded water and salt from the body into the urine. High blood pressure is a common condition, and when not treated it can cause damage to the brain, heart, blood vessels, kidneys and other parts of the body. Damage to these organs may cause heart disease, a heart attack, heart failure, stroke, kidney failure, loss of vision, and other problems. In addition to taking medication, making lifestyle changes will also help to control your blood pressure. These changes include eating a diet that is low in fat and salt, maintaining a healthy weight, exercising at least 30 minutes most days, not smoking, and using alcohol in moderation. HOW should this medicine be used? Torsemide comes as a tablet to take by mouth. It usually is taken once a day. To help you remember to take torsemide, take it around the same time every day. Follow the directions on your prescription label carefully, and ask your doctor or pharmacist to explain any part you do not understand. Taketorsemide exactly as directed. Do not take more or less of it or take it more often than prescribedby your doctor. Torsemide controls high blood pressure and edema but does not cure these conditions. Continue to take torsemide even if you feel well. Do not stop taking torsemide without talking to your doctor. Are there OTHER USES for this medicine? This medicine is sometimes prescribed for other uses; ask your doctor or pharmacist for more information. What SPECIAL PRECAUTIONS should I follow? Before taking torsemide, ??? tell your doctor and pharmacist if you are allergic to torsemide, sulfonamide medications, any other medications, or any of the ingredients in torsemide tablets. Ask your pharmacist or check the patient information for a list of the ingredients. ??? tell your doctor and pharmacist what prescription and nonprescription medications, vitamins, nutritional supplements, and herbal products you aretaking or plan to take while taking torsemide. Your doctor may need to change the doses of your medications or monitor you carefully for side effects ??? the following nonprescription products may interact with torsemide: aspirin and nonsteroidal anti-inflammatory drugs (NSAIDs) such as ibuprofen (A dvil, Motrin, others) and naproxen (Aleve, Naprosyn, others). Be sure to let your doctor and pharmacist know that you are taking these medications before you start taking torsemide. Do not start any of these medications while taking torsemide without discussing with your healthcare provider. ??? ifyou are taking cholestyramine (Questran), take it 4 hours before or 1 hour after toresemide. ??? tell your doctor if you have or have ever had kidney disease. Your doctor may tell you not to take toresemide. ??? tell your doctor if you have or have ever had diabetes, gout, heart, or liver disease. ??? tell your doctor if you are , plan to become , or are . Do not breastfeed while taking this medicine. If you become while taking torsemide, call your doctor. ??? you should know that torsemide may cause dizziness, lightheadedness, and fainting when you get up too quickly from a lying position. This is more common when you first start taking torsemide. To avoid this problem, get out of bed slowly, resting your feet on the floor for a few minutes before standing up. Alcohol can add to these side effects. What SPECIAL DIETARY instructions should I follow? If your doctor prescribes a low-salt or low-sodium diet, or to eat or drink increased amounts of potassium-rich foods (e.g., bananas, prunes, raisins, and orange juice) in your diet, follow these instructions carefully. What should I do IF I FORGET to take a dose? Take the missed dose as soon as you remember it. However, if it is almost time for your next dose, skip the missed dose and continue your regular dosing schedule. Do not take a double dose to make upfor a missed one. What SIDE EFFECTS can this medicine cause? Some side effects can be serious. If you have any of these symptoms, call your doctor immediately or get emergency medical treatment: ??? dry mouth; thirst; nausea; vomiting; weakness, tiredness; drowsiness; restlessness; confusion; muscle weakness, pain, or cramps; fast heartbeat and other signs of dehydration and electrolyte imbalance ??? rapid, excessive weight loss ??? vomiting blood ??? chest pain ??? difficulty breathing orswallowing ??? blisters or peeling skin ??? hives ??? rash ??? itching ??? ongoing pain that beginsin the stomach area, but may spread to the back If you experience a serious side effect, you or your doctor may send a report to the Food and Drug Administration's (FDA) [employer] Adverse Event Reporting program online (https://www.fda.gov/Safety/MedWatch) or by phone ( ). What should I know about STORAGE and DISPOSAL of this medication? Keep this medicine in the container it came in, tightly closed, and out of reach of children. Storeit at room temperature and away from excess heat and moisture (not in the bathroom). Dispose of unneeded medications in a way so that pets, children, and other people cannot take them.Do not flush this medication down the toilet. Use a medicine take-back program. Talk to your pharmacist about take-back programs in your community. Visit the FDA's Safe Disposal of Medicines website h ttps://goo.gl/c4Rm4p for more information. Keep all medication out of sight and reach of children as many containers are not child-resistant. Always lock safety caps. Place the medication in a safe location ??? one that is up and away and outof their sight and reach. https://www.upandaway.org What should I do in case of OVERDOSE? In case of overdose, call the poison control helpline at . Information is also available online at https://www.poisonhelp.org/help. If the victim has collapsed, had a seizure, has trouble breathing, or can't be awakened, immediately call emergency services at 063. What OTHER INFORMATION should I know? Keep all appointments with your doctor and the laboratory. Your blood pressure should be checked regularly, and blood tests should be done occasionally. Before having any laboratory test, tell your doctor and the laboratory personnel that you are taking torsemide. Do not let anyone else take your medicine. Ask your pharmacist any questions you have about refilling your prescription. Keep a written list of all of the prescription and nonprescription (wioy-ehr-bochwhf) medicines, vitamins, minerals, and dietary supplements you are taking. Bring this list with you each time you visit a doctor or if you are admitted to the hospital. You should carry the list with you in case of xochitl rgencies. Brand Name(s): ??? Demadex?? also available generically ?? This report on medications is for your information only, and is not considered individual patient advice. Because of the changing nature of drug information, please consult your physician or pharmacist about specific clinical use. The [employer] represents that the information provided hereunder was formulated with a reasonable standard of care, and in conformity with professional standards in the field. The [employer] makes no representations or warranties, express or implied, including, but not limited to, any implied warranty of merchantability and/or fitness for a particular purpose, with respect to such information and specifically disclaims all such warranties. Users are advised that decisions regarding drug therapy are complex medical decisions requiring the independent, informed decision of an appropriate health rn complex care, and the information is provided for informational purposes only. The entire monograph for a drug should be reviewed for a thorough understanding of the drug's actions, uses and side effects. The [employer] does not endorse or recommend the use of any drug.The information is not a substitute for medical care. AHFS?? Patient Medication Information???. ?? Copyright, 2023. The [employer]??, [address], [address], [place], [place]. All Rights Reserved. Duplication for commercial use must be authorized by [facility]. Selected Revisions: October 18, 2023. AHFS?? Patient Medication Information???. ?? Copyright, 2024 ?? Patient Care team information Care Team Personnel Name: Oscar Jackman RN Position: [facility] RN Member Role: Primary Care Nurse Name: Shital Hunt RN Position: S RN Member Role: Primary Care Nurse Name: Yanick Breen RN Position: S RN Member Role: Primary Care Nurse Name: Not on Staff, PCP Position: [facility] Physician (General Medicine) Member Role: PCP Name: Kelsey Barkley RN Position: S RN Member Role: Primary Care Nurse Name: Mila Miner RN Position: S RN Member Role: Primary Care Nurse Care Team Related Persons Name: DUDLEY MAGDALENO Name: JHONATAN MAGDALENO Insurance Providers Guarantor name: [employer] Health Plan Information #: 1 Payer: [employer] Adv Payer Identifier: [employer] Member Number: [id number] Group Number: [id number] Subscriber Identifier: [id number] Relationship to Subscriber: self Coverage Type: MEDICARE Coverage Verification Date: NA Telecom: NA Address: Health Plan Information #: 2 Payer: [employer] Payer Identifier: [employer] Member Number: [id number] Group Number: [id number] Subscriber Identifier: [id number] Relationship to Subscriber: self Coverage Type: MEDICAID Coverage Verification Date: [employer] Telecom: [employer] Address:
--- NOTE | 2024-11-02 14:30 | MHC.PC.OV ---
Vital Signs 11/02/24 14:47 BMI Reason not done Patient refused/unable BP 144/66 H Blood Pressure Location Lt brachial Position Sitting Respiration 14 Pulse 68 Pulse Source Pulse Oximeter Temp 98.6 F Temp Source Oral Pulse Oximetry (%) 96 Oxygen Delivery Method Room Air Intake Visit Reasons: Discharged on 10/28 for [facility]. Allergies lemon Allergy (Verified 10/07/24 15:11) Anaphylaxis morphine Allergy (Verified 10/07/24 15:11) Anaphylaxis vancomycin Allergy (Verified 10/07/24 15:11) Chest Pain Tobacco use date assessed: 10/07/24 Dental Screening Dental Screen Date: 09/02/24 HPI HPI Comments History of Present Illness Details The patient is a 79 year old male with a past medical history of type 2 diabetes, CAD, CHF, COPD on 2 L home , chronic back pain presenting for hospital follow up [facility] 10/22-10/28/24. Presented with intermittent episodes of CP, shortness of breath. Treated for acute on chronic dCHF, COPD exacerbation. Transitioned back to po diuretic and started on jardiance. Transitioned to po torsemide at 20mg daily. If weight > 2 lb in 1 day or 5 in one week take additional 20mg pm and call cardiology. PVC plan for outpatient ischemic work up. Has already seen [facility] outpatient. Pulmonary rehab nurse avl-no need for home . Furosemide transitioned to torsemide. DC'd on clopidogrol. ?xarelto. Has developed fungal groin rash COPD/BUTCH: Previously on . On trelegy. Following with pulm. CV: CHF, h/o afib, PAD, ?h/o CAD, ?h/o DVT. Following with cardiology. Echo LVEF 60 65% with moderate asymmetric septal hypertrophy with impaired relaxation filling pattern without elevated filling pressures with vxyr-km-qbkqsxzw aortic stenosis and mildly dilated ascending aorta. Also has nrcp-ui-pgwbmojv infrarenal abdominal aortic aneurysm at 4 cm being followed by vascular surgery. He was history of peripheral vascular disease had stents put in many years ago in [place] due to vascular insufficiency, being followed by vascular surgery again and has mild disease based on his IZABELA. He is currently on chronic anticoagulation with Xarelto because of blood clots and currently on 10 mg daily maintenance dose for usually venous thromboembolic disease. He is also on clopidogrel therapy. Has chronic toe/foot wounds, sacral wound-following vascular and wound. History of chronic pain-lumbar, neck, hip. legs. Recent imaging as above. Says past medications have included methadone, oxycodone, vicodin then on tramadol, lyrica, flexeril-was poorly controlled. He missed appt with pain management but plans to follow up. On xtampza and short acting oxycodone for pain. Recent hospitalizations --August 08-Aug 09 2024. Presented after falling at home-tripped on carpeting, UA suggestive of UTI. Given keflex x 5 days. MRI c spine negative for acute, CT tspine with fracture of a T11 osteophyte, CT lspine without acute fracture, CT pelvis negative for hip fracture. Advanced DDD thoracolumbar spine. Patient is doing ok. He continues to have unsteadiness, generalized weakness most of which he attributes to arthritis and severe chronic pain. He has VNA in the home, has been assessed and recommendation for hospital bed, commode have been made. His mobility is poor. Supportive family --August hospitalization for focal PNA. Seen in follow up by colleague. --Hospitalized 02/26-03/02/24 at [facility]. presented to the ER with right foot swelling, redness and pain for 2 days. In ED received vancomycin. Had feels that arms and chest were on fire. Got tightness and heaviness in the chest. Became hypotensive to 62/36. Vanc stopped. xray foot without evidence of osteomyelitis. Went into afib. Got IVF, zosyn, doxyccyline. Continued on IV doxycycline, IV steroids and Lasix with good response. DCd on additional po 5 days of doxycycline -Hospitalized end of February 2024for pneumonia, COPD exacerbation. Has had appropriate follow up with pulmonary. Echo ordered given history of CHF, persistent shortness of breath. Cardiology appt pending ROS see HPI PHYSICAL EXAM: GENERAL: Alert and oriented x 3. NAD EYES: EOMI. Anicteric. HENT: Moist mucous membranes. No scleral icterus. No cervical lymphadenopathy. LUNGS: Clear to auscultation bilaterally. CARDIOVASCULAR: Regular rate and rhythm. No JVD. ABDOMEN: Soft, non-tender +bs EXTREMITIES: Bilateral chronic distal peripheral vascular changes SKIN: Patch of confluent dishydrotic eczema on the dorsal hand NEUROLOGIC: No focal neurological deficits. CN II-XII grossly intact PSYCHIATRIC: Cooperative. Appropriate mood and affect [facility] Medical History Weakness Mental status alteration COPD (chronic obstructive pulmonary disease) GERD (gastroesophageal reflux disease) Hyperlipidemia Hypertension BPH (benign prostatic hyperplasia) CHF (congestive heart failure) Infrarenal abdominal aortic aneurysm (AAA) without rupture Peripheral vascular disease DDD (degenerative disc disease), lumbosacral Nicotine dependence, cigarettes, uncomplicated Nocturnal hypoxemia PAD (peripheral artery disease) Paroxysmal atrial fibrillation Social History Household Members: Other Household Members Other:: niece and family live upstairs Housing: House Do you presently have visiting nurse or other home services: No Alcohol intake: current Patient Tobacco Use Status: Current everyday Tobacco user Tobacco use type: Cigarette Cigarettes Per Day: 1 Years Smoked: 50 plus e-Cigarette/Vaping Use: Former Use Second Hand Smoke Exposure: No Advance Directives Date on File: 07/01/24 service: No Current occupational status: retired Cognitive needs: No Hearing needs: Yes Vision needs: Yes Questionnaire Thrive Questionnaire Date Thrive assessed: 10/07/24 I am a: Parent/Caregiver What is your living situation today?: I have a steady place to live Within the past 12 months, did the food you bought not last and you didn't have the money to get more?: Never true Within the past 12 months, did you worry whether your food would run out before you got money to buy more?: Never true Do you have trouble paying for medicines?: No Do you have trouble getting transportation to medical appointments?: No Do you have trouble paying your heating and electricity bill?: No Do you have trouble taking care of your child, family member or friend?: No Do you have trouble with day-to-day activities such as bathing, preparing meals, shopping, managing finances, etc.?: No Are you currently unemployed and looking for a job?: No Are you interested in more education?: No Please select the resources that you would like help with: None Currently or been in a relationship where the following occur: No concerns reported THRIVE Score: 0 ANTONIA-7 AMB Questionnaire ANTONIA-7 Date ANTONIA - 7 assessed: 10/07/24 Source: Developed by Drs. Russell L. MikoTania pepe, Graham Luna and colleagues, with an educational jordan from [employer]. Physical exam (Primary Care) Vital Signs: Last Vital Signs Temp 98.6 F 11/02/24 14:47 Pulse 68 11/02/24 14:47 Resp 14 11/02/24 14:47 BP 144/66 H 11/02/24 14:47 Pulse Ox 96 11/02/24 14:47 Oxygen Delivery Method Room Air 11/02/24 14:47 Tobacco/Smoking Status: Tobacco use Status Tobacco use date assessed 10/07/24 11/02/24 14:32 Patient Tobacco Use Status Current everyday Tobacco 11/02/24 14:32 Tobacco use type Cigarette 11/02/24 14:32 e-Cigarette/Vaping Use Former Use 11/02/24 14:32 Thrive Assessment: Date of Thrive Assessment Date Thrive assessed 10/07/24 11/02/24 14:32 Currently or been in a relationship where the following occur: No concerns reported Coding Level of Care Code TCM High MDM <= 14 days Diagnoses Hospital discharge follow-up Z09 Testicular swelling N50.89 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 Heart failure type: combined systolic and diastolic Heart failure chronicity: chronic Assessment & Plan Assessment & Plan (1) Hospital discharge follow-up: Code(s): Z09 - Encounter for follow-up examination after completed treatment for conditions other than malignant neoplasm Category: Medical (2) Testicular swelling: Code(s): N50.89 - Other specified disorders of the male genital organs Category: Medical (3) CHF (congestive heart failure): Code(s): I50.9 - Heart failure, unspecified Category: Medical Qualifiers: Heart failure type: combined systolic and diastolic Heart failure chronicity: chronic Qualified Code(s): I50.42 - Chronic combined systolic (congestive) and diastolic (congestive) heart failure Plan 79 year old for hospital follow up Hospitalization reviewed. Medications reviewed On torsemide. Euvolemic. Follow up cardiology. Chronic pain-controlled on current medication Yeast infection-stop jardiance. patient at risk of UTI, tinea Orders: Orders UA CC w/rflx Micro + Cult 11/02/24 R35.89 - Other polyuria Referrals Urology Referral N50.89 - Other specified disorders of the male genital organs
[2024-11-02 14:47] VITALS: BP 144/66; PULSE 68; RESP 14; TEMP 37; O2SAT 96
--- OUTSIDE RECORDS SUMMARY | 2024-11-02 14:56 | XMS_ITS | Patient Health Record ---
Author [facility] laz [facility] Address [address] [place] [address] Care Team Providers Care Antenna Rigger Name Role Phone Kiana Mckenna MD Primary Care Provider Raul Romero Unavailable [phone] Allergies Allergen (clinical drug ingredient) Drug/Non Drug Allergy documented on EMR Reaction Allergy Type Onset Date Status ibuprofen Advil Throw up Drug Allergy Active Aleve Throw up Drug Allergy Active Motrin Throw up Drug Allergy Active Reason For Referral No Information Medications Medication SIG (Take, Route, Frequency, Duration) Notes Start Date End Date Status Magnesium 250 MG 1 tablet with a meal Orally Once a day 07/16/2024 Active Triamcinolone Acetonide 0.1 % USE 1 APPLICATION TOPICALLY DAILY TO RASH OF THE HAND External; Duration: 14 Days Active predniSONE 10 MG PLEASE SEE ATTACHED FOR DETAILED DIRECTIONS Oral; Duration: 15 Days Active Xarelto 10 MG Oral; Duration: 30 Days Active Dexlansoprazole 60 MG Oral; Duration: 30 Days Active Tamsulosin HCl 0.4 MG Oral; Duration: 90 Days Active Nystatin 193564 UNIT/GM External; Durati on: 7 Days Active Xtampza ER 18 MG Oral; Duration: 28 Days Active Lisinopril 10 MG Oral; Duration: 90 Days Active Nystatin 574669 UNIT/GM External; Durati on: 30 Days Active Naloxone HCl 4 MG/0.1ML PLEASE SEE ATTAC HED FOR DETAILED DIRECTIONS Nasal; Duration: 30 Days Active oxyCODONE HCl 5 MG Oral; Duration: 28 Days Active Celecoxib 100 MG Oral; Duration: [...] A DAY Oral; Duration: 30 Days Active Trelegy Ellipta 200-62.5-25 MCG/ACT USE 1 INHALATION BY MOUTH DIRECTED DAILY Inhalation; Duration: 30 Days Active Clopidogrel Bisulfate 75 MG TAKE 1 TABLE T BY MOUTH DAILY Oral; Duration: 30 Days Active Linezolid 600 MG TAKE 1 TABLET BY IFRAH TH EVERY 12 HOURS Oral; Duration: 13 Days Active Ipratropium-Albuterol 0.5-2.5 (3) MG/3ML Inhalation; Duration: 20 Days Active Amoxicillin-Pot Clavulanate 875-125 MG Oral; Duration: 13 Days Acti ve Furosemide 20 MG Oral; Duration: 30 Days Active Pantoprazole Sodium 40 MG TAKE 1 TABLET BY MOUTH DAILY AT 630 Oral; Duration: 90 Days Active Famotidine 20 MG TAKE 1 TABLET BY IFRAH TH DAILY Oral; Duration: 90 Days Active Immunizations Vaccine Route Administration Date Status Comme nts Influenza Unknown 12/30/2023 Administered Social History Tobacco Use: Social History Observation [...] Problem Acquired hammer toe of right foot (4093685132049067) Other hammer toe(s) (acquired), right foot (M20.41) Active confirmed Problem Acquired hammer toe of left foot (7662593143495153) Other hammer toe(s) (acquired), left foot (M20.42) Active confirmed Problem Bilateral atherosclerosis of arteries of lower limbs (disorder) (27872932571183113 ) Atherosclerosis of g[place] artery of both lower extremities, with unspecified presence of clinical manifestation (I70.203) Active confirmed Q7(A), Q8(2B), Q9(1B,2 C) Problem Localized, primary osteoarthritis of the ankle and/or foot (310496570) Arthritis of joint of lesser toe, left (M19.072) Active confirmed Problem Localized, primary osteoarthritis of the ankle and/or foot (643077631) Arthritis of joint of lesser toe, right (M19.071) Active confirmed Vital Signs Blood pressure diastolic 65 mm Hg 07/23/2024 Height 5 ft 11inch in 07/23/2024 Blood pressure systolic 130 mm Hg 07/23/2024 Weight 220 lbs 07/23/2024 BMI 30.68 kg/m2 07/23/2024 Procedures Procedure Date Ordered Date Performed Result Body Sit e 81968-VYNPRPW NAIL, 6 OR MORE 07/23/2024 N/A 22073-RVSL SKIN LESIONS, OVER 4 07/23/2024 N/A Encounters Encounter Location Date Provider Diagnosis [facility] [address] [address] 07/23/2024 Raul Tavera Atherosclerosis of gakona artery of both lower extremities, with unspecified presence of clinical manifestation I70.203 ; Tinea unguium B35.1 ; Pain in right toe(s) M79.674 ; Pain in left toe(s) M79.675 ; Other hammer toe(s) (acquired), right foot M20.41 ; Arthritis of joint of lesser toe, right M19.071 ; Other hammer toe(s) (acquired), left foot M20.42 and Arthritis of joint of lesser toe, left M19.072 [facility] [address] 10/22/2024 Raul Tavera Assessments Encounter Date Diagnosis (ICD Code) Assessment Notes Treatment Notes Treatment Clinical Notes Section Notes 07/23/2024 Tinea 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) 07/23/2024 Atherosclerosis of g[place] artery of both lower extremities, with unspecified [...] Treatment Pending Test Test Name Order Date 50203-NWFGLAL NAIL, 6 OR MORE 07/23/2024 70816-YIRV SKIN LESIONS, OVER 4 07/24/19 Insurance Providers Payer Name Payer Address Payer Phone Subscriber Number Group Number Insured Name Patient Relationship to Insured Coverage Start Date Coverage End Date [employer] Medicare [id number] [address] [address] [place] [address] [id number] Russell Saeed Self - patient is the insured Medical (General) History Medical History History ICD Code asthma Back,Hip,and Knee pain Broken bones Headaches/Migraines Heart disease Hiatal hernia Numbness (Neuropathy) Poor circulation Reflux ( GERD) Stomach ulcer Ulcer (Skin) Vascular phlebitis (clots) Measles Mumps Chicken pox Joint implants/screws Hypertension Hypercholesterolemia Surgical History Surgery Date(Month/Year) back surgery 2014 Hospitalization History Reason Date(Month/Year) [facility]neum[facility] 05/2024
--- OUTSIDE RECORDS SUMMARY | 2024-11-02 14:56 | XMS_ITS | Encounter Summary ---
Author Organization [facility] Address [address] [place] [address] Care Team Providers Care Chief Transfer And Pumphouse Operator Name Role Phone Roland Morgan MD Primary Care Provider [phone] Encounter Details Date Type Department Care Team (Late st Contact Info) Description 09/29/2024 Lab Requisition [facility] - Main Lab [address] [place] [id number] Roland Morgan MD [address] [place] [address] Hypokalemia Social History Tobacco Use Types Packs/Day Years Used Date Smoking Tobacco: Never Assessed Sex and Gender Information Value Date Recorded Sex Assigned at Not on file Legal Sex Male 8:54 AM EDT Gender Identity Not on file Sexual Orientation Not on file documented as of this encounter Plan of Treatment Upcoming Encounters Date Type Department Care Team (Late st Contact Info) Description 11/16/2024 9:40 AM EDT Office Visit [facility] [address] [place] [phone] Rossi Arnett NP [address] [place] [address] documented as of this encounter Procedures Procedure Name Priority Date/Time Associated Diagnosis Comments BASIC METABOLIC PANEL Routine 09/29/2024 7:30 AM EDT Hypokalemia documented in this encounter Results * (ABNORMAL) Basic metabolic panel (09/29/2024 7:30 AM EDT) Sodium 140 133 - 145 mmol/L LAB CHEMISTRY METHOD 09/29/2024 11:26 AM [facility] Potassium 3.4(L) 3.5 - 5.5 mmol/L LAB CHEMISTRY METHOD 09/29/2024 11:26 AM [facility] Chloride 103 96 - 110 mmol/L LAB CHEMISTRY METHOD 09/29/2024 11:26 AM [facility] CO2 34(H) 21 - 32 mmol/L LAB CHEMISTRY METHOD 09/29/2024 11:26 AM [facility] Anion Gap 3 3 - 11 LAB CHEMISTRY METHOD 09/29/2024 11:26 AM [facility] Glucose 94 70 - 100 mg/dL LAB CHEMISTRY METHOD 09/29/2024 11:26 AM [facility] BUN 18 5 - 25 mg/dL LAB CHEMISTRY METHOD 09/29/2024 11:26 AM [facility] Creatinine 0.98 0.70 - 1.30 mg/dL LAB CHEMISTRY METHOD 09/29/2024 11:26 AM [facility] eGFR 78 >=60 mL/min/1. 73m2 LAB CHEMISTRY METHOD 09/29/2024 11:26 AM [facility] Comment:Calculation based on the Chronic Kidney Disease Epidemiology Collaboration (CKD-EPI) equation refit without adjustment for race. BUN/Creatinine Ratio 18.4 LAB CHEMISTRY METHOD 09/29/2024 11:26 AM [facility] Calcium 8.5 8.5 - 10.5 mg/dL LAB CHEMISTRY METHOD 09/29/2024 11:26 AM [facility] Blood Venous blood specimen / Unknown Venipuncture / Unknown 09/29/2024 7:30 AM EDT 09/29/2024 9:02 AM EDT us Roland Morgan MD LAB BLOOD ORDERABLES Final Resul t [facility] [address] [place] [address], documented in this encounter Visit Diagnoses Diagnosis Hypokalemia Hypopotassemia documented in this encounter Care Teams Chief Transfer And Pumphouse Operator Relationship Specialty Start Date End Date Roladn Morgan MD [address] [place] [address] [address] [place] [address] PCP - General Geriatric Medicine 09/08/24 documented as of this encounter
--- OUTSIDE RECORDS SUMMARY | 2024-11-02 14:56 | XMS_ITS | Clinical Summary ---
Author Organization [facility] Address [facility] [place] [address] Care Team Providers Care Waste Cotton Cleaner Name Role Phone Kashif, Maida Raheem KU [...] Hypertension CAD (coronary artery disease) History of TN (myocardial infarction) (HFpEF) heart failure with preserved [...] any time in the past 12 m [facility], were you homeless or living in a care home (including now)? No 08/20/2023 DH IPV Inpatient [...] - 199 mg/dL 12/10/2023 1:16 AM EDT [facility] Comment:Glucose Concentratio n >=200 mg/dL plus symptoms is consistent with Diabetes Mellitus. Blood Urea Nitrogen 24(H) 10 - 20 mg/dL 12/10/2023 1:16 AM EDT [facility] Creatinine 1.05 0.80 - 1.50 mg/dL 12/10/2023 1:16 AM EDT [facility] Sodium 140 135 - 145 mMol/L 12/10/2023 1:16 AM EDT [facility] Potassium 4.2 3.5 - 5.0 mMol/L 12/10/2023 1:16 AM EDT [facility] Chloride 105 98 - 107 mMol/L 12/10/2023 1:16 AM EDT [facility] Carbon Dioxide 24 22 - 31 mMol/L 12/10/2023 1:16 AM EDT [facility] Anion Gap 11 5 - 15 mMol/L 12/10/2023 1:16 AM EDT [facility] Calcium 8.2(L) 8.5 - 10.5 mg/dL 12/10/2023 1:16 AM EDT [facility] Est Glomerular Filtration Rate - Male 73 mL/min/1. 73 m 12/10/2023 1:16 AM EDT [facility] Comment: This patient's estimated GFR was [...] Mcgill DO CHEMISTRY ORDERABLES Final Re sult [facility] [place] [address] * (ABNORMAL) Hemoglobin A1c (08/19/2023 2:16 PM EDT) Hemoglobin A1c 6.2(H) 4.3 - 5.6 % [facility] Comment: Reference Range: 4.3 - 5.6% [...] Mellitus, Diabetes Care 2013; 36: Suppl. 1, O22-74 Estimated Average Glucose See note mg/dL [facility] Comment: Estimated Average Glucose not appropriate for patients over 70 years of age. Blood Venous Draw / Unknown 08/19/2023 2:16 PM EDT 08/19/2023 11:47 PM EDT Narrative Resulting Agency Comment Spec In Lab Chuy Balderas MD CHEMISTRY ORDERABLES Final Result [facility] [place] [address] from Last 3 Months or Most Recently Relevant to Health Maintenance Insurance [facility] MEDICARE [place]ICAID [place] Advance Directives [...] Status decision made by: Patient Care Teams Waste Cotton Cleaner Relationship Specialty Start Date End Date Maida Rowland APRN [address] [place] [id number] PCP - General Internal Medicine 11/07/23
== END 2024-11-02 15:09 | disposition home or self-care (01) ==
LOC: HO.HMCFM 14:15
PROVIDERS: PCP Internal Medicine; Visit Provider Internal Medicine
DX: N50.89 Other specified disorders of the male genital organs (principal); I50.42 Chronic combined systolic (congestive) and diastolic (congestive) heart failure; Z09 Encounter for follow-up examination after completed treatment for conditions other than malignant neoplasm

== ENCOUNTER → 2024-12-14 23:59 | Outpatient (BNV) | payer MEDICARE, MEDICAID, SELFPAY | PROVIDERS: PCP Internal Medicine; Visit Provider Internal Medicine | DX: I13.0 Hypertensive heart and chronic kidney disease with heart failure and stage 1 through stage 4 chronic kidney disease, or unspecified chronic kidney disease (principal); I50.33 Acute on chronic diastolic (congestive) heart failure; N18.2 Chronic kidney disease, stage 2 (mild) | CPT/HCPCS: G0179 ==

== ENCOUNTER → 2024-12-21 23:59 | Outpatient (BNV) | payer MEDICARE, MEDICAID, SELFPAY | PROVIDERS: PCP Internal Medicine; Visit Provider Internal Medicine | DX: I13.0 Hypertensive heart and chronic kidney disease with heart failure and stage 1 through stage 4 chronic kidney disease, or unspecified chronic kidney disease (principal); I50.33 Acute on chronic diastolic (congestive) heart failure; N18.2 Chronic kidney disease, stage 2 (mild) | CPT/HCPCS: G0179 ==

== ENCOUNTER 2025-01-07 09:12 | Outpatient (AMB) | payer MEDICARE, MEDICAID, SELFPAY ==
--- OUTSIDE RECORDS SUMMARY | 2024-10-22 05:30 | XMS_ITS ---
Author Organization [facility] [place] Address [address] [facility] [place] [address] Care Team Providers Care Knife Operator Name Role Phone Kiana Mckenna MD Primary Care Provider Raul Romero Unavailable [phone] Allergies Allergen (clinical drug ingredient) Drug/Non Drug [...] Naloxone HCl 4 MG/0.1ML PLEASE SEE ATTAC [facility] FOR DETAILED DIRECTIONS Nasal; Duration: 30 Days [...] MG Oral; Duration: 90 Days Active Nystatin 646698 UNIT/GM External; Durati on: 7 Days Active Xtampza ER 18 MG Oral; Duration: 28 Days Active Nystatin 705100 UNIT/GM External; Durati on: 30 Days Active Encounters Encounter Location Date [facility] [address] [address] 10/22/2024 Raul Tavera Plan Of Treatment No Information Progress Notes * Russell MARIADOB:1945 (79 yo M)Acc No.[id number]:10/22/2024 Progress Note Patient: Russell WARE Provider: Arthur Tavera DPM :1945 A ge:79 Y S ex:Male Date:10/22/2024 Address:[address] [place], [place] [id number] Pcp:Kiana Mckenna MD Subjective: * Chief Complaints: [...] Orally Once a day , Taking Nystatin 924316 UNIT/GM Powder External , Taking Xtampza ER 18 MG Capsule ER 12 Hour Abuse-Deterrent Oral , Taking Nystatin 529216 UNIT/GM Cream External , Taking Tamsulosin HCl [...] 0 10/22/2024 Generated for Qamar rock/Micki/Larry on: 09:36 AM EDT
--- NOTE | 2025-01-07 09:15 | MHC.PC.OV ---
Vital Signs 01/07/25 09:17 BMI Reason not done Patient refused/unable BP 132/70 Blood Pressure Location Rt brachial Position Sitting Respiration 16 Pulse 63 Pulse Source Pulse Oximeter Pulse Oximetry (%) 100 Oxygen Delivery Method Room Air Intake Visit Reasons: [facility] Intake Note: Rehab follow up Buck Swamper Required: No Allergies lemon Allergy (Verified 01/07/25 09:16) Anaphylaxis morphine Allergy (Verified 01/07/25 09:16) Anaphylaxis vancomycin Allergy (Verified 01/07/25 09:16) Chest Pain Tobacco use date assessed: 01/07/25 Fall risk assessment: 2 + Falls in past year Last assessed Fall Risk: 01/07/25 Dental Screening Dental Screen Date: 09/02/24 HPI HPI Comments History of Present Illness Details The patient is a 79 year old male with a past medical history of type 2 diabetes, CAD, CHF, COPD on 2 L home , chronic back pain presenting for hospital follow up [facility] 11/08-11/11 for UTI, hypokalemia. Farxiga discontinued. [facility] 10/22-10/28/24. Presented with intermittent episodes of CP, shortness of breath. Treated for acute on chronic dCHF, COPD exacerbation. Transitioned back to po diuretic and started on jardiance. Transitioned to po torsemide at 20mg daily. If weight > 2 lb in 1 day or 5 in one week take additional 20mg pm and call cardiology. PVC plan for outpatient ischemic work up. [place] [facility] [place]. Pulmonary rehab nurse avl-no need for home . Furosemide transitioned to torsemide. DC'd on clopidogrol. ?xarelto. Has developed fungal groin rash -DC jardiance COPD/BUTCH: Previously on 02. On trelegy. Following with pulm. CV: CHF, h/o afib, PAD, NSTEMI. Following with cardiology. Echo LVEF 60 65% with moderate asymmetric septal hypertrophy with impaired relaxation filling pattern without elevated filling pressures with [id number] aortic stenosis and mildly dilated ascending aorta. Also has [id number] infrarenal abdominal aortic aneurysm at 4 cm being followed by vascular surgery. He was history of peripheral vascular disease had stents put in many years ago in [place] due to vascular insufficiency, being followed by vascular surgery again and has mild disease based on his IZABELA. He is currently on chronic anticoagulation with Xarelto because of blood clots and currently on 10 mg daily maintenance dose for usually venous thromboembolic disease. He is also on clopidogrel therapy. Has chronic toe/foot wounds, sacral wound-following vascular and wound. History of chronic pain-lumbar, neck, hip. legs. Recent imaging as above. Says past medications have included methadone, oxycodone, vicodin then on tramadol, lyrica, flexeril-was poorly controlled. He missed appt with pain management but plans to follow up. On xtampza and short acting oxycodone for pain-he has been using 2 per day but would like to add an 8am dose while xtampza starts to work. Ok given to family Recent hospitalizations --August 08-Aug 09 2024. Presented after falling at home-tripped on carpeting, UA suggestive of UTI. Given keflex x 5 days. MRI c spine negative for acute, CT tspine with fracture of a T11 osteophyte, CT lspine without acute fracture, CT pelvis negative for hip fracture. Advanced DDD thoracolumbar spine. Patient is doing ok. He continues to have unsteadiness, generalized weakness most of which he attributes to arthritis and severe chronic pain. He has VNA in the home, has been assessed and recommendation for hospital bed, commode have been made. His mobility is poor. Supportive family --August hospitalization for focal PNA. Seen in follow up by colleague. --Hospital[place]26-03/02/[place] [facility]. presented to the ER with right foot swelling, redness and pain for 2 days. In ED received vancomycin. Had feels that arms and chest were on fire. Got tightness and heaviness in the chest. Became hypotensive to 62/36. Vanc stopped. xray foot without evidence of osteomyelitis. Went into afib. Got IVF, zosyn, doxyccyline. Continued on IV doxycycline, IV steroids and Lasix with good response. DCd on additional po 5 days of doxycycline -Hospitalized end of February 2024for pneumonia, COPD exacerbation. Has had appropriate follow up with pulmonary. Echo ordered given history of CHF, persistent shortness of breath. Cardiology appt pending ROS see HPI PHYSICAL EXAM: GENERAL: Alert and oriented x 3. NAD EYES: EOMI. Anicteric. HENT: Moist mucous membranes. No scleral icterus. No cervical lymphadenopathy. LUNGS: Clear to auscultation bilaterally. CARDIOVASCULAR: Regular rate and rhythm. No JVD. ABDOMEN: Soft, non-tender +bs EXTREMITIES: Bilateral chronic distal peripheral vascular changes SKIN: Patch of confluent dishydrotic eczema on the dorsal hand NEUROLOGIC: No focal neurological deficits. CN II-XII grossly intact PSYCHIATRIC: Cooperative. Appropriate mood and affect [facility] Medical History Weakness Mental status alteration COPD (chronic obstructive pulmonary disease) GERD (gastroesophageal reflux disease) Hyperlipidemia Hypertension BPH (benign prostatic hyperplasia) CHF (congestive heart failure) Infrarenal abdominal aortic aneurysm (AAA) without rupture Peripheral vascular disease DDD (degenerative disc disease), lumbosacral Nicotine dependence, cigarettes, uncomplicated Nocturnal hypoxemia PAD (peripheral artery disease) Paroxysmal atrial fibrillation Social History Household Members: Other Household Members Other:: niece and family live upstairs Housing: House Do you presently have visiting nurse or other home services: No Alcohol intake: current Patient Tobacco Use Status: Current everyday Tobacco user Tobacco use type: Cigarette Cigarettes Per Day: 1 Years Smoked: 50 plus e-Cigarette/Vaping Use: Former Use Second Hand Smoke Exposure: No Advance Directives Date on File: 07/01/24 service: No Current occupational status: retired Cognitive needs: No Hearing needs: Yes Vision needs: Yes Questionnaire Thrive Questionnaire Date Thrive assessed: 10/07/24 I am a: Parent/Caregiver What is your living situation today?: I have a steady place to live Within the past 12 months, did the food you bought not last and you didn't have the money to get more?: Never true Within the past 12 months, did you worry whether your food would run out before you got money to buy more?: Never true Do you have trouble paying for medicines?: No Do you have trouble getting transportation to medical appointments?: No Do you have trouble paying your heating and electricity bill?: No Do you have trouble taking care of your child, family member or friend?: No Do you have trouble with day-to-day activities such as bathing, preparing meals, shopping, managing finances, etc.?: No Are you currently unemployed and looking for a job?: No Are you interested in more education?: No Please select the resources that you would like help with: None Currently or been in a relationship where the following occur: No concerns reported THRIVE Score: 0 ANTONIA-7 AMB Questionnaire ANTONIA-7 Date ANTONIA - 7 assessed: 10/07/24 Source: Developed by Drs. Russell Crouch, Tania Raya, Graham Luna and colleagues, with an educational jordan from [employer]. Physical exam (Primary Care) Vital Signs: Last Vital Signs Pulse 63 01/07/25 09:17 Resp 16 01/07/25 09:17 BP 132/70 01/07/25 09:17 Pulse Ox 100 01/07/25 09:17 Oxygen Delivery Method Room Air 01/07/25 09:17 Tobacco/Smoking Status: Tobacco use Status Tobacco use date assessed 10/07/24 11/02/24 14:32 Patient Tobacco Use Status Current everyday Tobacco 11/02/24 14:32 Tobacco use type Cigarette 11/02/24 14:32 e-Cigarette/Vaping Use Former Use 11/02/24 14:32 Thrive Assessment: Date of Thrive Assessment Date Thrive assessed 10/07/24 11/02/24 14:32 Currently or been in a relationship where the following occur: No concerns reported Coding Level of Care Code Est Pt Level 4 (81080) Diagnoses Hospital discharge follow-up Z09 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 Heart failure type: combined systolic and diastolic Heart failure chronicity: chronic Urinary tract infection without hematuria, site unspecified N39.0 Urinary tract infection type: site unspecified Hematuria presence: without hematuria Assessment & Plan Assessment & Plan (1) Hospital discharge follow-up: Code(s): Z09 - Encounter for follow-up examination after completed treatment for conditions other than malignant neoplasm Category: Medical (2) CHF (congestive heart failure): Code(s): I50.9 - Heart failure, unspecified Category: Medical Qualifiers: Heart failure type: combined systolic and diastolic Heart failure chronicity: chronic Qualified Code(s): I50.42 - Chronic combined systolic (congestive) and diastolic (congestive) heart failure (3) UTI (urinary tract infection): Code(s): N39.0 - Urinary tract infection, site not specified Qualifiers: Urinary tract infection type: site unspecified Hematuria presence: without hematuria Qualified Code(s): N39.0 - Urinary tract infection, site not specified Plan 79 year old for hospital follow up Hospital course reviewed. Justine Huang Recieved antibiotic therapy Multiple medical comordidities necessitating continued in home service due to patient being homebound He has follow up scheduled in one month for physical/cpe Medications: Refilled oxycodone Partial Fill upon patient request. 5 mg PO Q4H PRN 168 tabs 0RF pain (scale score 7-10) G89.29 - Other chronic pain, M54.9 - Dorsalgia, unspecified Xtampza ER (oxycodone myristate) partial fill upon patient request 18 mg PO BID 56 caps 0RF NS M51.372 - Other intervertebral disc degeneration, lumbosacral region with discogenic back pain and lower extremity pain
[2025-01-07 09:17] VITALS: BP 132/70; PULSE 63; RESP 16; O2SAT 100
--- OUTSIDE RECORDS SUMMARY | 2025-01-07 09:36 | XMS_ITS | Patient Health Record ---
Author Organization [facility] laz CallManuelito Address [address] [place] [address] Care Team Providers Care Vmware Architect Name Role Phone Kiana Mckenna MD Primary Care Provider Raul Romero Unavailable [phone] Allergies Allergen (clinical drug ingredient) Drug/Non Drug [...] MG Oral; Duration: 90 Days Active Nystatin 381167 UNIT/GM External; Durati on: 7 Days Active Xtampza ER 18 MG Oral; Duration: 28 Days Active Lisinopril 10 MG Oral; Duration: 90 Days Active Nystatin 252520 UNIT/GM External; Durati on: 30 Days Active [...] Problem Acquired hammer toe of right foot (0242383200145617) Other hammer toe(s) (acquired), right foot (M20.41) Active confirmed Problem Acquired hammer toe of left foot (3028253244448138) Other hammer toe(s) (acquired), left foot (M20.42) Active confirmed Problem Bilateral atherosclerosis of arteries of lower limbs (disorder) (40066349107926948 ) Atherosclerosis of wilton artery of both lower extremities, with unspecified presence of clinical manifestation (I70.203) Active confirmed Q7(A), Q8(2B), Q9(1B,2 C) Problem Localized, primary osteoarthritis of the ankle and/or foot (195060420) Arthritis of joint of lesser toe, left (M19.072) Active confirmed Problem Localized, primary osteoarthritis of the ankle and/or foot (962230133) Arthritis of joint of lesser toe, right (M19.071) Active confirmed Vital Signs Blood pressure diastolic 65 mm Hg 07/23/2024 Height 5 ft 11inch in 07/23/2024 Blood pressure systolic 130 mm Hg 07/23/2024 Weight 220 lbs 07/23/2024 BMI 30.68 kg/m2 07/23/2024 Procedures Procedure Date Ordered Date Performed Result Body Sit e 54852-XPKDCLK NAIL, 6 OR MORE 07/23/2024 N/A 35756-LJRT SKIN LESIONS, OVER 4 07/23/2024 N/A Encounters Encounter Location Date Provider Diagnosis [facility] [address] [address] 07/23/2024 Raul Tavera Atherosclerosis of wilton artery of both lower extremities, with unspecified presence of clinical manifestation I70.203 ; Tinea unguium B35.1 ; Pain in right toe(s) M79.674 ; Pain in left toe(s) M79.675 ; Other hammer toe(s) (acquired), right foot M20.41 ; Arthritis of joint of lesser toe, right M19.071 ; Other hammer toe(s) (acquired), left foot M20.42 and Arthritis of joint of lesser toe, left M19.[address] [facility] [address] 10/22/2024 Raul Tavera Assessments Encounter Date Diagnosis (ICD Code) Assessment Notes Treatment Notes Treatment Clinical Notes Section Notes 07/23/2024 Tinea 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) 07/23/2024 Atherosclerosis of wilton artery of both lower extremities, with unspecified [...] Treatment Pending Test Test Name Order Date [id number] NAIL, 6 OR MORE 07/23/2024 07258-NUOO SKIN LESIONS, OVER 4 07/24/19 Insurance Providers Payer Name Payer Address Payer Phone Subscriber Number Group Number Insured Name Patient Relationship to Insured Coverage Start Date Coverage End Date [employer] Medicare Adv-[id number] [address] [address] [place] [address] [id number] Russell Saeed Self - patient is the insured Medical (General) History Medical History History ICD Code asthma Back,Hip,and Knee pain Broken bones Headaches/Migraines Heart disease Hiatal hernia Numbness (Neuropathy) Poor circulation Reflux ( GERD) Stomach ulcer Ulcer (Skin) Vascular phlebitis (clots) Measles Mumps Chicken pox Joint implants/screws Hypertension Hypercholesterolemia Surgical History Surgery Date(Month/Year) back surgery 2014 Hospitalization History Reason Date(Month/Year) [facility] 05/2024
--- OUTSIDE RECORDS SUMMARY | 2025-01-07 09:36 | XMS_ITS | Encounter Summary ---
Author Organization [facility] Address [address] [place] [address] Care Team Providers Care Tour Conductor Name Role Phone Roland Morgan MD Primary Care Provider [phone] Encounter Details Date Type Department Care Team (Late st Contact Info) Description 09/08/[address] [facility] [address] [facility] [place] [address] Roland Morgan MD [address] [place] [address] Hepatic encephalopathy (CMS/HCC V24, CMS/HCC V28) Social History Tobacco Use Types Packs/Day Years Used Date Smoking Tobacco: Never Assessed Sex and Gender Information Value Date Recorded Sex Assigned at Not on file Legal Sex Male 8:54 AM EDT Gender Identity Not on file Sexual Orientation Not on file documented as of this encounter Plan of Treatment Not on file documented as of this encounter Procedures Procedure Name Priority Date/Time Associated Diagnosis Comments COMPLETE BLOOD COUNT Routine 09/08/2024 6:57 AM EDT Hepatic encephalopathy (CMS/HCC V24, CMS/HCC V28) COMPREHENSIVE METABOLIC PANEL Routine 09/08/2024 6:57 AM EDT Hepatic encephalopathy (CMS/HCC V24, CMS/HCC V28) documented in this encounter Results * (ABNORMAL) Comprehensive metabolic panel (09/08/2024 6:57 AM EDT) Sodium 135 133 - 145 mmol/L LAB CHEMISTRY METHOD 09/08/2024 10:34 AM [facility] Potassium 3.9 3.5 - 5.5 mmol/L LAB CHEMISTRY METHOD 09/08/2024 10:34 AM [facility] Chloride 95(L) 96 - 110 mmol/L LAB CHEMISTRY METHOD 09/08/2024 10:34 AM [facility] CO2 32 21 - 32 mmol/L LAB CHEMISTRY METHOD 09/08/2024 10:34 AM [facility] Anion Gap 8 3 - 11 LAB CHEMISTRY METHOD 09/08/2024 10:34 AM [facility] Glucose 97 70 - 100 mg/dL LAB CHEMISTRY METHOD 09/08/2024 10:34 AM [facility] BUN 25 5 - 25 mg/dL LAB CHEMISTRY METHOD 09/08/2024 10:34 AM [facility] Creatinine 0.99 0.70 - 1.30 mg/dL LAB CHEMISTRY METHOD 09/08/2024 10:34 AM [facility] eGFR 77 >=60 mL/min/1. 73m2 LAB CHEMISTRY METHOD 09/08/2024 10:34 AM [facility] Comment:Calculation based on the Chronic Kidney Disease Epidemiology Collaboration (CKD-EPI) equation refit without adjustment for race. BUN/Creatinine Ratio 25.3 LAB CHEMISTRY METHOD 09/08/2024 10:34 AM [facility] Calcium 8.8 8.5 - 10.5 mg/dL LAB CHEMISTRY METHOD 09/08/2024 10:34 AM [facility] AST (SGOT) 28 10 - 42 unit/L LAB CHEMISTRY METHOD 09/08/2024 10:34 AM [facility] ALT (SGPT) 37 10 - 60 unit/L LAB CHEMISTRY METHOD 09/08/2024 10:34 AM [facility] Alkaline Phosphatase 100 42 - 121 unit/L LAB CHEMISTRY METHOD 09/08/2024 10:34 AM EDT [facility] Total Protein 6.2 6.0 - 8.0 g/dL LAB CHEMISTRY METHOD 09/08/2024 10:34 AM T [facility] Albumin 2.5(L) 3.2 - 5.0 g/dL LAB CHEMISTRY METHOD 09/08/2024 10:34 AM EDT [facility] Total Bilirubin 0.4 0.0 - 1.4 mg/dL LAB CHEMISTRY METHOD 09/08/2024 10:34 AM EDT [facility] Blood Venous blood specimen / Unknown Venipuncture / Unknown 09/08/2024 6:57 AM EDT 09/08/2024 8:56 AM EDT us Roland Morgan MD LAB BLOOD ORDERABLES Final Resul t [facility] [address] [place] [address], * (ABNORMAL) Complete blood count (09/08/2024 6:57 AM EDT) WBC 12.3(H) 4.8 - 10.8 K/mcL LAB HEMETOLOGY METHOD 09/08/2024 10:13 AM [facility] RBC 4.40(L) 4.50 - 5.50 M/mcL LAB HEMETOLOGY METHOD 09/08/2024 10:13 AM EDT [facility] Hemoglobin 12.5(L) 13.5 - 17.5 g/dL LAB HEMETOLOGY METHOD 09/08/2024 10:13 AM [facility] Hematocrit 39.2(L) 42.0 - 54.0 % LAB HEMETOLOGY METHOD 09/08/2024 10:13 AM [facility] MCV 88.9 79.0 - 98.0 FL LAB HEMETOLOGY METHOD 09/08/2024 10:13 AM EDT [facility] MCH 28.3 27.0 - 32.0 pcg LAB HEMETOLOGY METHOD 09/08/2024 10:13 AM EDT [facility] MCHC 31.9(L) 32.0 - 37.0 g/dL LAB HEMETOLOGY METHOD 09/08/2024 10:13 AM EDT [facility] RDW 13.5 11.0 - 15.0 % LAB HEMETOLOGY METHOD 09/08/2024 10:13 AM EDT [facility] Platelets 302 130 - 400 K/mcL LAB HEMETOLOGY METHOD 09/08/2024 10:13 AM EDT [facility] MPV 10.0 7.0 - 11.0 FL LAB HEMETOLOGY METHOD 09/08/2024 10:13 AM EDT [facility] NRBC 0.0 <1.0 % LAB HEMETOLOGY METHOD 09/08/2024 10:13 AM T [facility] NRBC Absolute 0.00 <0.10 K/mcL LAB HEMETOLOGY METHOD 09/08/2024 10:13 AM [facility] Blood Venous blood specimen / Unknown Venipuncture / Unknown 09/08/2024 6:57 AM EDT 09/08/2024 8:56 AM EDT us Roland Morgan MD LAB BLOOD ORDERABLES Final Resul t [facility] [address] [place] [address], documented in this encounter Visit Diagnoses Diagnosis Hepatic encephalopathy (CMS/HCC V24, CMS/HCC V28) Hepatic encephalopathy documented in this encounter Care Teams Tour Conductor Relationship Specialty Start Date End Date Roland Morgan MD [address] [place] [address] [address] [place] [address] PCP - General Geriatric Medicine 09/08/24 documented as of this encounter
--- OUTSIDE RECORDS SUMMARY | 2025-01-07 09:36 | XMS_ITS | Encounter Summary ---
Author Organization [facility] Address [address] [place] [address] Care Team Providers Care Corn Lab Technician Name Role Phone Roland Morgan MD Primary Care Provider [phone] Encounter Details Date Type Department Care Team (Late st Contact Info) Description 09/29/2024 Lab Requisition [facility] [address] [place] [address] Roland Morgan MD [address] [place] [address] Hypokalemia Social History Tobacco Use Types Packs/Day [...] mmol/L LAB CHEMISTRY METHOD 09/29/2024 11:26 AM EDT [facility] Potassium 3.4(L) 3.5 - 5.5 mmol/L LAB CHEMISTRY METHOD 09/29/2024 11:26 AM EDT [facility] Chloride 103 96 - 110 mmol/L LAB CHEMISTRY METHOD 09/29/2024 11:26 AM [facility] CO2 34(H) 21 - 32 mmol/L LAB CHEMISTRY METHOD 09/29/2024 11:26 AM [facility] Anion Gap 3 3 - 11 LAB CHEMISTRY METHOD 09/29/2024 11:26 AM [facility] Glucose 94 70 - 100 mg/dL LAB CHEMISTRY METHOD 09/29/2024 11:26 AM [facility] BUN 18 5 - 25 mg/dL LAB CHEMISTRY METHOD 09/29/2024 11:26 AM [facility] Creatinine 0.98 0.70 - 1.30 mg/dL LAB CHEMISTRY METHOD 09/29/2024 11:26 AM [facility] eGFR 78 >=60 mL/min/1. 73m2 LAB CHEMISTRY METHOD 09/29/2024 11:26 AM [facility] Comment:Calculation based on the Chronic Kidney Disease Epidemiology Collaboration (CKD-EPI) equation refit without adjustment for race. BUN/Creatinine Ratio 18.4 LAB CHEMISTRY METHOD 09/29/2024 11:26 AM [facility] Calcium 8.5 8.5 - 10.5 mg/dL LAB CHEMISTRY METHOD 09/29/2024 11:26 AM [facility] Blood Venous blood specimen / Unknown Venipuncture / Unknown 09/29/2024 7:30 AM EDT 09/29/2024 9:02 AM EDT us Roland Morgan MD LAB BLOOD ORDERABLES Final Resul t [facility] [address] [place] [address], documented in this encounter Visit Diagnoses Diagnosis Hypokalemia Hypopotassemia documented in this encounter Care Teams Corn Lab Technician Relationship Specialty Start Date End Date Roland Morgan MD [address] [place] [address] [address] [place] [address] PCP - General Geriatric Medicine 09/08/24 documented as of this encounter
--- OUTSIDE RECORDS SUMMARY | 2025-01-07 09:36 | XMS_ITS | Encounter Summary ---
Author Organization [facility] Address [address] [place] [address] Care Team Providers Care Counter Intelligence Technician Name Role Phone Roland Morgan MD Primary Care Provider [phone] Encounter Details Date Type Department Care Team (Late st Contact Info) Description 09/17/[address] [facility] - Main Lab 299 [facility] [place] [address] Roland Morgan MD [address] [place] [address] Other malaise; Hepatic encephalopathy (CMS/HCC V24, CMS/HCC V28) Social [...] Associated Diagnosis Comments COMPLETE BLOOD COUNT Routine 09/20/2024 8:33 AM EDT Other malaise Hepatic encephalopathy (CMS/HCC V24, CMS/HCC V28) BASIC METABOLIC PANEL Routine 09/20/2024 8:33 AM EDT Other malaise Hepatic encephalopathy (CMS/HCC V24, CMS/HCC V28) documented in this encounter Results * (ABNORMAL) Basic metabolic panel (09/20/2024 8:33 AM EDT) Sodium 143 133 - 145 mmol/L LAB CHEMISTRY METHOD 09/20/2024 12:47 PM [facility] Potassium 3.5 3.5 - 5.5 mmol/L LAB CHEMISTRY METHOD 09/20/2024 12:47 PM [facility] Chloride 105 96 - 110 mmol/L LAB CHEMISTRY METHOD 09/20/2024 12:47 PM [facility] CO2 32 21 - 32 mmol/L LAB CHEMISTRY METHOD 09/20/2024 12:47 PM [facility] Anion Gap 6 3 - 11 LAB CHEMISTRY METHOD 09/20/2024 12:47 PM [facility] Glucose 98 70 - 100 mg/dL LAB CHEMISTRY METHOD 09/20/2024 12:47 PM [facility] BUN 16 5 - 25 mg/dL LAB CHEMISTRY METHOD 09/20/2024 12:47 PM [facility] Creatinine 1.13 0.70 - 1.30 mg/dL LAB CHEMISTRY METHOD 09/20/2024 12:47 PM [facility] eGFR 66 >=60 mL/min/1. 73m2 LAB CHEMISTRY METHOD 09/20/2024 12:47 PM [facility] Comment:Calculation based on the Chronic Kidney Disease Epidemiology Collaboration (CKD-EPI) equation refit without adjustment for race. BUN/Creatinine Ratio 14.2 LAB CHEMISTRY METHOD 09/20/2024 12:47 PM [facility] Calcium 8.2(L) 8.5 - 10.5 mg/dL LAB CHEMISTRY METHOD 09/20/2024 12:47 PM [facility] Blood Venous blood specimen / Unknown Venipuncture / Unknown 09/20/2024 8:33 AM EDT 09/20/2024 11:07 AM EDT Roland Morgan MD LAB BLOOD ORDERABLES Final Resul t [facility] [address] [place] [address], * (ABNORMAL) Complete blood count (09/20/2024 8:33 AM EDT) [facility] Signature WBC 7.0 4.8 - 10.8 K/mcL LAB HEMETOLOGY METHOD 09/20/2024 12:35 PM EDT [facility] RBC 4.20(L) 4.50 - 5.50 M/mcL LAB HEMETOLOGY METHOD 09/20/2024 12:35 PM EDT [facility] Hemoglobin 11.9(L) 13.5 - 17.5 g/dL LAB HEMETOLOGY METHOD 09/20/2024 12:35 PM EDT [facility] Hematocrit 38.1(L) 42.0 - 54.0 % LAB HEMETOLOGY METHOD 09/20/2024 12:35 PM EDT [facility] MCV 91.1 79.0 - 98.0 FL LAB HEMETOLOGY METHOD 09/20/2024 12:35 PM EDT [facility] MCH 28.5 27.0 - 32.0 pcg LAB HEMETOLOGY METHOD 09/20/2024 12:35 PM EDT [facility] MCHC 31.2(L) 32.0 - 37.0 g/dL LAB HEMETOLOGY METHOD 09/20/2024 12:35 PM EDT [facility] RDW 14.7 11.0 - 15.0 % LAB HEMETOLOGY METHOD 09/20/2024 12:35 PM EDT [facility] Platelets 247 130 - 400 K/mcL LAB HEMETOLOGY METHOD 09/20/2024 12:35 PM EDT [facility] MPV 11.1(H) 7.0 - 11.0 FL LAB HEMETOLOGY METHOD 09/20/2024 12:35 PM EDT [facility] NRBC 0.0 <1.0 % LAB HEMETOLOGY METHOD 09/20/2024 12:35 PM EDT [facility] NRBC Absolute 0.00 <0.10 K/mcL LAB HEMETOLOGY METHOD 09/20/2024 12:35 PM EDT [facility] Blood Venous blood specimen / Unknown Venipuncture / Unknown 09/20/2024 8:33 AM EDT 09/20/2024 11:04 AM EDT us Roland Morgan MD LAB BLOOD ORDERABLES Final Resul t [facility] [address] [place] [address], documented in this encounter Visit Diagnoses Diagnosis Other malaise Hepatic encephalopathy (CMS/HCC V24, CMS/HCC V28) Hepatic encephalopathy documented in this encounter Care Teams Counter Intelligence Technician Relationship Specialty Start Date End Date Roland Morgan MD [address] [place] [address] [address] [place] [address] PCP - General Geriatric Medicine 09/08/24 documented as of this encounter
--- OUTSIDE RECORDS SUMMARY | 2025-01-07 09:36 | XMS_ITS | Clinical Summary ---
Author Organization [address] Address [address] [place] [phone] Phone Care Team Providers Care Telecommunications Manager Name Role Phone Roland Morgan MD Primary Care Provider [phone] Allergies Active Allergy Reactions Criticality Noted Date Comments Morphine Anaphylaxis High 11/16/2024 Medications albuterol HFA (PROAIR HFA ; PROVENTIL HFA ; VENTOLIN HFA) 90 mcg/actuation inhaler Inhale 2 puffs by mouth every 6 (six) hours if needed for shortness of breath. 4 Active albuterol 2.5 mg /3 mL (0.083 %) nebulizer solution if needed. 4 Active atorvastatin (LIPITOR) 40 mg tablet Take 1 tablet (40 mg total) by mouth 1 (one) time each day. 5 Active celecoxib (CeleBREX) 100 mg capsule Take 1 capsule (100 mg total) by mouth 1 (one) time each day. 5 Active clopidogreL (PLAVIX) 75 mg tablet Take 1 tablet (75 mg total) by mouth 1 (one) time each day. 5 Active cyclobenzaprine (FLEXERIL) 10 mg tablet Take 1 tablet (10 mg total) by mouth if needed. 5 Active dexlansoprazole (DEXILANT) [address] capsule Take 1 capsule (60 mg total) by mouth 1 (one) time each day. 5 Active famotidine (PEPCID) 20 mg tablet Take 1 tablet (20 mg total) by mouth 1 (one) time each day. 5 Active Trelegy Ellipta 200-62.5-25 mcg inhaler Inhale 1 puff (200 mcg total) by mouth 1 (one) time each day. 5 Active lisinopriL (PRINIVIL,ZESTR IL) 10 mg tablet Take 1 tablet (10 mg total) by mouth 1 (one) time each day. 5 Active oxyCODONE (ROXICODONE) 10 mg immediate release tablet Take 1 tablet (10 mg total) by mouth every 4 (four) hours. for pain 5 Active oxyCODONE (ROXICODONE) 5 mg immediate release tablet Take 1 tablet (5 mg total) by mouth every 4 (four) hours. for pain 5 Active pantoprazole (PROTONIX) 40 mg EC tablet Take 1 tablet (40 mg total) by mouth 1 (one) time each day before breakfast. 5 Active Xarelto 10 mg tablet Take 2 tablets (20 mg total) by mouth 1 (one) time each day. 5 Active tamsulosin (FLOMAX) 0.4 mg 24 hr capsule Take 2 capsules (0.8 mg total) by mouth 1 (one) time each day. 5 Active Xtampza ER 18 mg capsule,sprinkl e,ER 12hr tmprr Take 1 capsule by mouth 2 (two) times a day. Max Daily Amount: 2 capsules 5 Active pregabalin (LYRICA) 100 mg capsule Take 1 capsule (100 mg total) by mouth 2 (two) times a day. 5 Active torsemide (DEMADEX) 20 mg tablet Take 1 tablet (20 mg total) by mouth 1 (one) time each day. 5 Active empagliflozin (Jardiance) 10 mg tablet Take 1 tablet (10 mg total) by mouth 1 (one) time each day in the morning. 90 tablet 3 5 Active Active Problems Problem Noted Date Diagnosed Date Coronary artery disease invo [place]ving [place] coronary artery of [place] heart without angina pectoris 11/16/2024 Overview (11/16/2024): - treated in [place] the patient does not believe he has any stents - He reportedly had a cardiac cath a number of years ago at [facility] in [place], [place]--records requested - He had a pharmacologic nuclear stress test at [facility] 09/03/2023 which showed no fixed or reversible perfusion defects though small area of decreased activity in the apex seen on stress and rest favored to represent normal apical thinning with normal LVEF 62%. He was noted to have coronary artery and aortic calcifications. Assessment & Plan (11/16/2024 12:25 PM EDT): The patient has ongoing typical and atypical chest discomfort symptoms with nuclear stress test last year without ischemia. Interestingly, his symptoms also occur with straining to move his bowels, which is quite atypical. However, he does have CAC noted on the nuclear stress test and is a current smoker. To start, we will continue his ongoing medical therapy with statin, P2Y12i, and ANITA-I. He is not on a BB due to his COPD with wheezing during his hospitalization, but certainly, this could be considered at future visits as he is not wheezing today. Further, his chest pressure improved with diuresis, see below. We have requested his cath report from [place]. Once his cath report is reviewed, we will decide with Dr. Magana further work up. Consideration can be give for cCTA vs cath depending on his cath from [place]. If we are unable to receive the cath in the next week or so, I will speak with Dr. Magana on his preference for investigating his CAD burden. Chronic heart failure with p reserved ejection fraction (CMS/HCC V24, CMS/HCC V28) 11/16/2024 Overview (11/16/2024): -Echocardiogram 08/2024 at [facility] showed LVEF normal 55 to 60%, normal LV size and wall thickness, no wall motion abnormalities, grade 1 mild diastolic dysfunction, normal biatrial size, mild aortic stenosis with peak/mean gradient of 22.8/12 mmHg Assessment & Plan (11/16/2024 12:26 PM EDT): Patient appears mostly euvolemic on exam today on his current ANITA-I and torsemide. He disclosed during his hospitalization that his meals are prepared by family. Continue his toresmide at current dose. Start Jardiance 10mg/d with BMP in about 2 weeks time. Indication and side effects discussed with patient. Primary hypertension 11/16/2024 Assessment & Plan (11/16/2024 12:26 PM EDT): Patient's blood pressure is reasonable to consider SGLT2i, but if he has any dizziness, would back down on his torsemide to 10mg/d. Pure hypercholesterolemia 11/16/2024 Assessment & Plan (11/16/2024 12:27 PM EDT): I do not have a recent lipid profile. He will obtain a non-fasting lipid profile in a couple of weeks with his other labs ordered. Nonrheumatic aortic valve stenosis 11/16/2024 Overview (11/16/2024): -Echocardiogram 08/2024 at [facility] showed LVEF normal 55 to 60%, normal LV size and wall thickness, no wall motion abnormalities, grade 1 mild diastolic dysfunction, normal biatrial size, mild aortic stenosis with peak/mean gradient of 22.8/12 mmHg Assessment & Plan (11/16/2024 12:27 PM EDT): The patient's aortic stenosis is not likely the main contributor to his CHF. Continue periodic surveillance. Encounters Date Type Department Care Team Description 12/12/2024 Telephone [facility] - [address] [place] [phone] Rossi Arnett NP 11/16/2024 9:40 AM EDT Office Visit [facility] - [address] [place] [phone] Rossi Arnett NP Coronary artery disease involving [place] coronary artery of [place] heart without angina pectoris (Primary Dx); Chronic heart failure with preserved ejection fraction (CMS/HCC V24, CMS/HCC V28); Primary hypertension; Pure hypercholesterolemia; Nonrheumatic aortic valve stenosis 10/27/2024 Telephone [facility] - [address] [place] [address] Rossi Arnett NP from Last 3 Months Social History Tobacco Use Types Packs/Day Years Used Date Smoking Tobacco: Every Day Cigarettes Passive Smoke Exposure: Past Smokeless Tobacco: Never Tobacco Cessation:Ready to Q uit: Not Asked; Counseling Given: Not Answered Alcohol Use Standard Drinks/Week Comments Not Currently 0 (1 standard drink = 0.6 oz pur e alcohol) Sex and Gender Information Value Date Recorded Sex Assigned at Not on file Legal Sex Male 8:54 AM EDT Gender Identity Not on file Sexual Orientation Not on file Obstetrics History Last Filed Vital Signs Vital Sign Reading Time Taken Comments Blood Pressure 104/56 11/16/2024 9:44 AM EDT Pulse 72 11/16/2024 9:44 AM EDT Temperature - - Respiratory Rate - - Oxygen Saturation 97% 11/16/2024 9:44 AM EDT Inhaled Oxygen Concentration - - Weight 101 kg (222 lb) 11/16/2024 9:44 AM EDT Height 180.3 cm (5' 11 ) 11/16/2024 9:44 AM EDT Body Mass Index 30.96 11/16/2024 9:44 AM EDT Plan of Treatment Health Maintenance Due Date Last Done Comments Diabetes: Annual Foot Exam 1955 Diabetes: Annual Retina Eye Exam 1955 DTaP,Tdap,and Td Vaccines (1 - Tdap) 01/14/1964 Pneumococcal Vaccine: 50+ Years (1 of 2 - PCV) 01/14/1964 Zoster Vaccines (1 of 2) 1995 RSV Immunization Adult Patients (1 - 1-dose 75+ series) 01/14/2020 Depression Screening 03/31/2024 Cholesterol Screening (Lipid Panel) 09/08/2024 Falls Risk Assessment 09/08/2024 Hepatitis C Screening 09/08/2024 Medicare Annual Wellness Visit 09/08/2024 Social Influencers of Health Screening 09/08/2024 Diabetes: Annual Urine Albumin-Creatinine Ratio (uACR) 11/16/2024 Diabetes: Blood Sugar Control Test (HGBA1C) 11/16/2024 Influenza Vaccine (#1) 2024 , 02/28/2024, 12/27/2022 COVID-19 Vaccine ( season) 2025 09/13/2024 Diabetes: Annual GFR (Glomerular Filtration Rate) 09/29/2025 09/29/2024, 09/27/2024, 09/20/2024, Additional history exists Hypertension/CHF/CAD Annual BMP Blood Test 09/29/2025 09/29/2024, 09/27/2024, 09/20/2024, Additional history exists HIB Vaccines Aged Out No longer eligi ble based on patient's age to complete this topic HPV Vaccines Aged Out No longer eligi ble based on patient's age to complete this topic Hepatitis A Vaccines Aged Out No long er eligible based on patient's age to complete this topic Hepatitis B Vaccines Aged Out No long er eligible based on patient's age to complete this topic IPV Vaccines Aged Out No longer eligi ble based on patient's age to complete this topic MMR Vaccines Aged Out No longer eligi ble based on patient's age to complete this topic Meningococcal ACWY Vaccine Aged Out N o longer eligible based on patient's age to complete this topic Meningococcal B Vaccine Aged Out No l onger eligible based on patient's age to complete this topic RSV Immunization Patients Under 20 months Aged Out No longer eligible based on patient's age to complete this topic Varicella Vaccines Aged Out No longer eligible based on patient's age to complete this topic Procedures Procedure Name Priority Date/Time Associated Diagnosis Comments BASIC METABOLIC PANEL Routine 09/29/2024 7:30 AM EDT Hypokalemia from Last 3 Months or Most Recently Relevant to Health Maintenance Results * (ABNORMAL) Basic metabolic panel (09/29/2024 7:30 AM EDT) Sodium 140 133 - 145 mmol/L LAB CHEMISTRY METHOD 09/29/2024 11:26 AM EDT [facility] Potassium 3.4(L) 3.5 - 5.5 mmol/L LAB CHEMISTRY METHOD 09/29/2024 11:26 AM EDT [facility] Chloride 103 96 - 110 mmol/L LAB CHEMISTRY METHOD 09/29/2024 11:26 AM T [facility] CO2 34(H) 21 - 32 mmol/L LAB CHEMISTRY METHOD 09/29/2024 11:26 AM [facility] Anion Gap 3 3 - 11 LAB CHEMISTRY METHOD 09/29/2024 11:26 AM [facility] Glucose 94 70 - 100 mg/dL LAB CHEMISTRY METHOD 09/29/2024 11:26 AM [facility] BUN 18 5 - 25 mg/dL LAB CHEMISTRY METHOD 09/29/2024 11:26 AM [facility] Creatinine 0.98 0.70 - 1.30 mg/dL LAB CHEMISTRY METHOD 09/29/2024 11:26 AM [facility] eGFR 78 >=60 mL/min/1. 73m2 LAB CHEMISTRY METHOD 09/29/2024 11:26 AM [facility] Comment:Calculation based on the Chronic Kidney Disease Epidemiology Collaboration (CKD-EPI) equation refit without adjustment for race. BUN/Creatinine Ratio 18.4 LAB CHEMISTRY METHOD 09/29/2024 11:26 AM [facility] Calcium 8.5 8.5 - 10.5 mg/dL LAB CHEMISTRY METHOD 09/29/2024 11:26 AM [facility] Blood Venous blood specimen / Unknown Venipuncture / Unknown 09/29/2024 7:30 AM EDT 09/29/2024 9:02 AM EDT us Roland Morgan MD LAB BLOOD ORDERABLES Final Resul t [facility] [address] [place] [address], from Last 3 Months or Most Recently Relevant to Health Maintenance Insurance MEDICAID - [place] [employer] MEDICARE Care Teams Telecommunications Manager Relationship Specialty Start Date End Date Roland Morgan MD [address] [place] [address] [address] [place] [address] PCP - General Geriatric Medicine 09/08/24
--- OUTSIDE RECORDS SUMMARY | 2025-01-07 09:37 | XMS_ITS | Clinical Summary ---
Author Organization [facility] Address [facility] [place] [address] Care Team Providers Care Director Of Intercollegiate Athletics Name Role Phone Kashif, Maida Raheem K[employer] [...] Hypertension CAD (coronary artery disease) History of HI (myocardial infarction) (HFpEF) heart failure with preserved [...] any time in the past 12 m [facility], were you homeless or living in a [facility] (including now)? No 08/20/2023 DH IPV Inpatient [...] Vaccine (1 - 1-dose 75+ series) 01/14/2020 DM Hemoglobin A1c 6 month 02/19/2024 08/19/2023, Covid-19 Vaccine (1 - 2023-2 5 season) 2024 Influenza (Flu) vaccine (1 o f 1 [...] - 199 mg/dL 12/10/2023 1:16 AM EDT [facility] Comment:Glucose Concentratio n >=200 mg/dL plus symptoms is consistent with Diabetes Mellitus. Blood Urea Nitrogen 24(H) 10 - 20 mg/dL 12/10/2023 1:16 AM EDT [facility] Creatinine 1.05 0.80 - 1.50 mg/dL 12/10/2023 1:16 AM EDT [facility] Sodium 140 135 - 145 mMol/L 12/10/2023 1:16 AM EDT [facility] Potassium 4.2 3.5 - 5.0 mMol/L 12/10/2023 1:16 AM EDT [facility] Chloride 105 98 - 107 mMol/L 12/10/2023 1:16 AM EDT [facility] Carbon Dioxide 24 22 - 31 mMol/L 12/10/2023 1:16 AM EDT [facility] Anion Gap 11 5 - 15 mMol/L 12/10/2023 1:16 AM EDT [facility] Calcium 8.2(L) 8.5 - 10.5 mg/dL 12/10/2023 1:16 AM EDT [facility] Est Glomerular Filtration Rate - Male 73 mL/min/1. 73 m 12/10/2023 1:16 AM EDT [facility] Comment: This patient's estimated GFR [...] Mcgill DO CHEMISTRY ORDERABLES Final Re sult [facility] [place] [address] * (ABNORMAL) Hemoglobin A1c (08/19/2023 2:16 PM EDT) Hemoglobin A1c 6.2(H) 4.3 - 5.6 % [facility] Comment: Reference Range: 4.3 - [...] Mellitus, Diabetes Care 2013; 36: Suppl. 1, H57-01 Estimated Average Glucose See note mg/dL [facility] Comment: Estimated Average Glucose not appropriate for patients over 70 years of age. Blood Venous Draw / Unknown 08/19/2023 2:16 PM EDT 08/19/2023 11:47 PM EDT Narrative Resulting Agency Comment Spec In Lab Chuy Balderas MD CHEMISTRY ORDERABLES Final Result [facility] [place] [address] from Last 3 Months or Most Recently Relevant to Health Maintenance Insurance [facility] MEDICARE [place]ICAID [place] Advance Directives [...] Status decision made by: Patient Care Teams Director Of Intercollegiate Athletics Relationship Specialty Start Date End Date Maida Rowland APRN [address] [place] [phone] PCP - General Internal Medicine 11/07/23
--- OUTSIDE RECORDS SUMMARY | 2025-01-07 09:37 | XMS_ITS | Encounter Summary ---
Author Organization [facility] Address [address] [place] [address] Care Team Providers Care Crop Consultant Name Role Phone Roland Morgan MD Primary Care Provider [phone] Encounter Details Date Type Department Care Team (Late st Contact Info) Description 09/24/2024 Lab Requisition [facility] - Main Lab [address] [facility] [place] [address] Roland Morgan MD [address] [place] [address] Other malaise; Hepatic encephalopathy (CMS/HCC V24, CMS/HCC [...] Associated Diagnosis Comments COMPLETE BLOOD COUNT Routine 09/27/2024 7:42 AM EDT Other malaise Hepatic encephalopathy (CMS/HCC V24, CMS/HCC V28) BASIC METABOLIC PANEL Routine 09/27/2024 7:42 AM EDT Other malaise Hepatic encephalopathy (CMS/HCC V24, CMS/HCC V28) documented in this encounter Results * (ABNORMAL) Basic metabolic panel (09/27/2024 7:42 AM EDT) Sodium 140 133 - 145 mmol/L LAB CHEMISTRY METHOD 09/27/2024 11:47 AM [facility] Potassium 3.1(L) 3.5 - 5.5 mmol/L LAB CHEMISTRY METHOD 09/27/2024 11:47 AM [facility] Chloride 102 96 - 110 mmol/L LAB CHEMISTRY METHOD 09/27/2024 11:47 AM [facility] CO2 28 21 - 32 mmol/L LAB CHEMISTRY METHOD 09/27/2024 11:47 AM [facility] Anion Gap 10 3 - 11 LAB CHEMISTRY METHOD 09/27/2024 11:47 AM [facility] Glucose 97 70 - 100 mg/dL LAB CHEMISTRY METHOD 09/27/2024 11:47 AM [facility] BUN 19 5 - 25 mg/dL LAB CHEMISTRY METHOD 09/27/2024 11:47 AM [facility] Creatinine 1.09 0.70 - 1.30 mg/dL LAB CHEMISTRY METHOD 09/27/2024 11:47 AM [facility] eGFR 69 >=60 mL/min/1. 73m2 LAB CHEMISTRY METHOD 09/27/2024 11:47 AM [facility] Comment:Calculation based on the Chronic Kidney Disease Epidemiology Collaboration (CKD-EPI) equation refit without adjustment for race. BUN/Creatinine Ratio 17.4 LAB CHEMISTRY METHOD 09/27/2024 11:47 AM [facility] Calcium 8.1(L) 8.5 - 10.5 mg/dL LAB CHEMISTRY METHOD 09/27/2024 11:47 AM [facility] Blood Venous blood specimen / Unknown Venipuncture / Unknown 09/27/2024 7:42 AM EDT 09/27/2024 10:00 AM EDT Roland Morgan MD LAB BLOOD ORDERABLES Final Resul t [facility] [address] [place] [address], * (ABNORMAL) Complete blood count (09/27/2024 7:42 AM EDT) [facility] Signature WBC 7.8 4.8 - 10.8 K/mcL LAB HEMETOLOGY METHOD 09/27/2024 10:49 AM EDT [facility] RBC 4.00(L) 4.50 - 5.50 M/mcL LAB HEMETOLOGY METHOD 09/27/2024 10:49 AM EDT [facility] Hemoglobin 11.5(L) 13.5 - 17.5 g/dL LAB HEMETOLOGY METHOD 09/27/2024 10:49 AM EDT [facility] Hematocrit 35.6(L) 42.0 - 54.0 % LAB HEMETOLOGY METHOD 09/27/2024 10:49 AM EDT [facility] MCV 88.1 79.0 - 98.0 FL LAB HEMETOLOGY METHOD 09/27/2024 10:49 AM EDT [facility] MCH 28.5 27.0 - 32.0 pcg LAB HEMETOLOGY METHOD 09/27/2024 10:49 AM EDT [facility] MCHC 32.3 32.0 - 37.0 g/dL LAB HEMETOLOGY METHOD 09/27/2024 10:49 AM EDT [facility] RDW 14.1 11.0 - 15.0 % LAB HEMETOLOGY METHOD 09/27/2024 10:49 AM EDT [facility] Platelets 231 130 - 400 K/mcL LAB HEMETOLOGY METHOD 09/27/2024 10:49 AM EDT [facility] MPV 11.1(H) 7.0 - 11.0 FL LAB HEMETOLOGY METHOD 09/27/2024 10:49 AM EDT [facility] NRBC 0.0 <1.0 % LAB HEMETOLOGY METHOD 09/27/2024 10:49 AM EDT [facility] NRBC Absolute 0.00 <0.10 K/mcL LAB HEMETOLOGY METHOD 09/27/2024 10:49 AM EDT [facility] Blood Venous blood specimen / Unknown Venipuncture / Unknown 09/27/2024 7:42 AM EDT 09/27/2024 9:57 AM EDT us Roland Morgan MD LAB BLOOD ORDERABLES Final Resul t [facility] [address] [place] [address], documented in this encounter Visit Diagnoses Diagnosis Other malaise Hepatic encephalopathy (CMS/HCC V24, CMS/HCC V28) Hepatic encephalopathy documented in this encounter Care Teams Crop Consultant Relationship Specialty Start Date End Date Roland Morgan MD [address] [place] [address] [address] [place] [address] PCP - General Geriatric Medicine 09/08/24 documented as of this encounter
--- OUTSIDE RECORDS SUMMARY | 2025-01-07 09:37 | XMS_ITS | Encounter Summary ---
Author Organization [facility] Address [address] [place] [address] Care Team Providers Care Product Marketing Specialist Name Role Phone Roland Morgan MD Primary Care Provider [phone] Encounter Details Date Type Department Care Team (Late st Contact Info) Description 09/10/2024 Lab Requisition [facility] - Main Lab [address] [facility] [place] [address] Roland Morgan MD [address] [place] [address] Other malaise; Hepatic encephalopathy (CMS/HCC V24, CMS/HCC [...] Associated Diagnosis Comments COMPLETE BLOOD COUNT Routine 09/13/2024 5:42 AM EDT Other malaise Hepatic encephalopathy (CMS/HCC V24, CMS/HCC V28) BASIC METABOLIC PANEL Routine 09/13/2024 5:42 AM EDT Other malaise Hepatic encephalopathy (CMS/HCC V24, CMS/HCC V28) documented in this encounter Results * (ABNORMAL) Basic metabolic panel (09/13/2024 5:42 AM EDT) Sodium 142 133 - 145 mmol/L LAB CHEMISTRY METHOD 09/13/2024 11:20 AM [facility] Potassium 3.4(L) 3.5 - 5.5 mmol/L LAB CHEMISTRY METHOD 09/13/2024 11:20 AM [facility] Chloride 102 96 - 110 mmol/L LAB CHEMISTRY METHOD 09/13/2024 11:20 AM [facility] CO2 32 21 - 32 mmol/L LAB CHEMISTRY METHOD 09/13/2024 11:20 AM [facility] Anion Gap 8 3 - 11 LAB CHEMISTRY METHOD 09/13/2024 11:20 AM [facility] Glucose 88 70 - 100 mg/dL LAB CHEMISTRY METHOD 09/13/2024 11:20 AM [facility] BUN 22 5 - 25 mg/dL LAB CHEMISTRY METHOD 09/13/2024 11:20 AM [facility] Creatinine 1.11 0.70 - 1.30 mg/dL LAB CHEMISTRY METHOD 09/13/2024 11:20 AM [facility] eGFR 68 >=60 mL/min/1. 73m2 LAB CHEMISTRY METHOD 09/13/2024 11:20 AM [facility] Comment:Calculation based on the Chronic Kidney Disease Epidemiology Collaboration (CKD-EPI) equation refit without adjustment for race. BUN/Creatinine Ratio 19.8 LAB CHEMISTRY METHOD 09/13/2024 11:20 AM [facility] Calcium 8.1(L) 8.5 - 10.5 mg/dL LAB CHEMISTRY METHOD 09/13/2024 11:20 AM [facility] Blood Venous blood specimen / Unknown Venipuncture / Unknown 09/13/2024 5:42 AM EDT 09/13/2024 9:25 AM EDT Roland Morgan MD LAB BLOOD ORDERABLES Final Resul t [facility] [address] [place] [address], * (ABNORMAL) Complete blood count (09/13/2024 5:42 AM EDT) [facility] Signature WBC 8.9 4.8 - 10.8 K/mcL LAB HEMETOLOGY METHOD 09/13/2024 10:42 AM EDT [facility] RBC 4.20(L) 4.50 - 5.50 M/mcL LAB HEMETOLOGY METHOD 09/13/2024 10:42 AM EDT [facility] Hemoglobin 12.0(L) 13.5 - 17.5 g/dL LAB HEMETOLOGY METHOD 09/13/2024 10:42 AM EDT [facility] Hematocrit 37.4(L) 42.0 - 54.0 % LAB HEMETOLOGY METHOD 09/13/2024 10:42 AM EDT [facility] MCV 89.9 79.0 - 98.0 FL LAB HEMETOLOGY METHOD 09/13/2024 10:42 AM EDT [facility] MCH 28.8 27.0 - 32.0 pcg LAB HEMETOLOGY METHOD 09/13/2024 10:42 AM EDT [facility] MCHC 32.1 32.0 - 37.0 g/dL LAB HEMETOLOGY METHOD 09/13/2024 10:42 AM EDT [facility] RDW 13.5 11.0 - 15.0 % LAB HEMETOLOGY METHOD 09/13/2024 10:42 AM EDT [facility] Platelets 280 130 - 400 K/mcL LAB HEMETOLOGY METHOD 09/13/2024 10:42 AM EDT [facility] MPV 10.2 7.0 - 11.0 FL LAB HEMETOLOGY METHOD 09/13/2024 10:42 AM EDT [facility] NRBC 0.0 <1.0 % LAB HEMETOLOGY METHOD 09/13/2024 10:42 AM EDT [facility] NRBC Absolute 0.00 <0.10 K/mcL LAB HEMETOLOGY METHOD 09/13/2024 10:42 AM EDT [facility] Blood Venous blood specimen / Unknown Venipuncture / Unknown 09/13/2024 5:42 AM EDT 09/13/2024 9:21 AM EDT us Roland Morgan MD LAB BLOOD ORDERABLES Final Resul t [facility] [address] [place] [address], [place] [phone] documented in this encounter Visit Diagnoses Diagnosis Other malaise Hepatic encephalopathy (CMS/HCC V24, CMS/HCC V28) Hepatic encephalopathy documented in this encounter Care Teams Product Marketing Specialist Relationship Specialty Start Date End Date Roland Morgan MD [address] [place] [address] [address] [place] [address] PCP - General Geriatric Medicine 09/08/24 documented as of this encounter
--- OUTSIDE RECORDS SUMMARY | 2025-01-07 09:37 | XMS_ITS | Encounter Summary ---
Author Organization [facility] Address [address] [place] [address] Care Team Providers Care Tool Liaison Name Role Phone Roland Morgan MD Primary Care Provider [phone] Encounter Details Date Type Department Care Team (Late st Contact Info) Description 09/15/2024 Lab Requisition [facility] Lab [address] [place] [address] Roland Morgan MD [address] [place] [address] Hypokalemia Social History Tobacco Use Types Packs/Day [...] Associated Diagnosis Comments BASIC METABOLIC PANEL Routine 09/15/2024 7:11 AM EDT Hypokalemia documented in this encounter Results * (ABNORMAL) Basic metabolic panel (09/15/2024 7:11 AM EDT) Sodium 141 133 - 145 mmol/L LAB CHEMISTRY METHOD 09/15/2024 10:48 AM EDT [facility] Potassium 3.9 3.5 - 5.5 mmol/L LAB CHEMISTRY METHOD 09/15/2024 10:48 AM EDT [facility] Chloride 104 96 - 110 mmol/L LAB CHEMISTRY METHOD 09/15/2024 10:48 AM [facility] CO2 30 21 - 32 mmol/L LAB CHEMISTRY METHOD 09/15/2024 10:48 AM [facility] Anion Gap 7 3 - 11 LAB CHEMISTRY METHOD 09/15/2024 10:48 AM [facility] Glucose 133(H) 70 - 100 mg/dL LAB CHEMISTRY METHOD 09/15/2024 10:48 AM [facility] BUN 21 5 - 25 mg/dL LAB CHEMISTRY METHOD 09/15/2024 10:48 AM [facility] Creatinine 1.11 0.70 - 1.30 mg/dL LAB CHEMISTRY METHOD 09/15/2024 10:48 AM [facility] eGFR 68 >=60 mL/min/1. 73m2 LAB CHEMISTRY METHOD 09/15/2024 10:48 AM [facility] Comment:Calculation based on the Chronic Kidney Disease Epidemiology Collaboration (CKD-EPI) equation refit without adjustment for race. BUN/Creatinine Ratio 18.9 LAB CHEMISTRY METHOD 09/15/2024 10:48 AM [facility] Calcium 8.2(L) 8.5 - 10.5 mg/dL LAB CHEMISTRY METHOD 09/15/2024 10:48 AM [facility] Blood Venous blood specimen / Unknown Venipuncture / Unknown 09/15/2024 7:11 AM EDT 09/15/2024 9:41 AM EDT us Roland Morgan MD LAB BLOOD ORDERABLES Final Resul t [facility] [address] [place] [address], documented in this encounter Visit Diagnoses Diagnosis Hypokalemia Hypopotassemia documented in this encounter Care Teams Tool Liaison Relationship Specialty Start Date End Date Roland Morgan MD [address] [place] [address] [address] [place] [address] PCP - General Geriatric Medicine 09/08/24 documented as of this encounter
== END 2025-01-07 09:35 | disposition home or self-care (01) ==
LOC: HO.HMCFM 09:12
PROVIDERS: PCP Internal Medicine; Visit Provider Internal Medicine
DX: Z09 Encounter for follow-up examination after completed treatment for conditions other than malignant neoplasm (principal); I50.42 Chronic combined systolic (congestive) and diastolic (congestive) heart failure; N39.0 Urinary tract infection, site not specified

== ENCOUNTER → 2025-01-07 09:12 | Outpatient (BNVA) | payer MEDICARE, MEDICAID, SELFPAY | PROVIDERS: PCP Internal Medicine; Visit Provider Internal Medicine | DX: Z09 Encounter for follow-up examination after completed treatment for conditions other than malignant neoplasm (principal); I11.0 Hypertensive heart disease with heart failure; I50.42 Chronic combined systolic (congestive) and diastolic (congestive) heart failure; N39.0 Urinary tract infection, site not specified; I25.2 Old myocardial infarction; I73.9 Peripheral vascular disease, unspecified; M54.9 Dorsalgia, unspecified; M51.372 Other intervertebral disc degeneration, lumbosacral region with discogenic back pain and lower extremity pain; G89.29 Other chronic pain; I71.40 Abdominal aortic aneurysm, without rupture, unspecified; I25.10 Atherosclerotic heart disease of native coronary artery without angina pectoris; E11.621 Type 2 diabetes mellitus with foot ulcer; L97.509 Non-pressure chronic ulcer of other part of unspecified foot with unspecified severity; J44.9 Chronic obstructive pulmonary disease, unspecified; F17.210 Nicotine dependence, cigarettes, uncomplicated; Z79.899 Other long term (current) drug therapy | CPT/HCPCS: 99212 ==

== ENCOUNTER 2025-02-11 11:24 | Outpatient (AMB) | payer MEDICARE, MEDICAID, SELFPAY ==
--- OUTSIDE RECORDS SUMMARY | 2024-10-22 04:30 | XMS_ITS ---
Author Organization [facility] [place] Address [address] [place] [address] Care Team Providers Care Hand Plug Shaper Name Role Phone Kiana Mckenna MD Primary Care Provider Raul Romero Unavailable [phone] Allergies Allergen (clinical drug ingredient) Drug/Non Drug Allergy documented on EMR Reaction Allergy Type Onset Date Status ibuprofen Advil Throw up Drug Allergy Active Aleve Throw up Drug Allergy Active Motrin Throw up Drug Allergy Active Medications Medication SIG (Take, Route, Frequency, Duration) Notes Start Date End Date Status Triamcinolone Acetonide 0.1 % USE 1 APPLICATION TOPICALLY DAILY TO RASH OF THE HAND External; Duration: 14 Days Active predniSONE 10 MG PLEASE SEE ATTACHED FOR DETAILED DIRECTIONS Oral; Duration: 15 Days Active Xarelto 10 MG Oral; Duration: 30 Days Active Lisinopril 10 MG Oral; Duration: 90 Days Active Naloxone HCl 4 MG/0.1ML PLEASE SEE ATTAC [facility] FOR DETAILED DIRECTIONS Nasal; Duration: 30 Days Active Dexlansoprazole 60 MG Oral; Duration: 30 Days Active Linezolid 600 MG TAKE 1 TABLET BY IFRAH TH EVERY 12 HOURS Oral; Duration: 13 Days Active Celecoxib 100 MG Oral; Duration: 30 Days Active Atorvastatin Calcium 40 MG Oral; Duration: 30 Days Active hydrOXYzine HCl 25 MG TAKE 1 TABLET BY M OUTH THREE TIMES A DAY FOR ITCH Oral; Duration: 90 Days Active Cyclobenzaprine HCl 10 MG Oral; Duration: 30 Days Active Pregabalin 100 MG TAKE 1 CAPSULE BY MO UTH 3 TIMES A DAY Oral; Duration: 30 Days Active Ipratropium-Albuterol 0.5-2.5 (3) MG/3ML Inhalation; Duration: 20 Days Active Amoxicillin-Pot Clavulanate 875-125 MG Oral; Duration: 13 Days Acti ve Furosemide 20 MG Oral; Duration: 30 Days Active Trelegy Ellipta 200-62.5-25 MCG/ACT USE 1 INHALATION BY MOUTH DIRECTED DAILY Inhalation; Duration: 30 Days Active Clopidogrel Bisulfate 75 MG TAKE 1 TABLE T BY MOUTH DAILY Oral; Duration: 30 Days Active oxyCODONE HCl 5 MG Oral; Duration: 28 Days Active Pantoprazole Sodium 40 MG TAKE 1 TABLET BY MOUTH DAILY AT 630 Oral; Duration: 90 Days Active Famotidine 20 MG TAKE 1 TABLET BY IFRAH TH DAILY Oral; Duration: 90 Days Active Magnesium 250 MG 1 tablet with a meal Orally Once a day 07/16/2024 Active Tamsulosin HCl 0.4 MG Oral; Duration: 90 Days Active Nystatin 195673 UNIT/GM External; Durati on: 7 Days Active Xtampza ER 18 MG Oral; Duration: 28 Days Active Nystatin 657577 UNIT/GM External; Durati on: 30 Days Active Encounters Encounter Location Date [facility] [address] [address] [facility]/22/2024 Raul Tavera Plan Of Treatment No Information Progress Notes * Russell MARIADOB:1945 (80 yo M)Acc No.[id number]:10/22/2024 Progress Note Patient: Russell WARE Provider: Arthur Tavera DPM :1945 A ge:79 Y S ex:Male Date:10/22/2024 Address:[address] [place], [place] [id number] Pcp:Kiana Mckenna MD Subjective: * Chief Complaints: * * Medical History: A sthma, Back,Hip,and Knee pain, Broken bones, Headaches/Migraines, Heart disease, Hiatal hernia, Numbness (Neuropathy), Poor circulation, Reflux ( GERD), Stomach ulcer, Ulcer (Skin), Vascular phlebitis (clots), Measles, Mumps, Chicken pox, Joint implants/screws, Hypertension, Hypercholesterolemia. * Medications: T aking Magnesium 250 MG Tablet 1 tablet with a meal Orally Once a day , Taking Nystatin 604611 UNIT/GM Powder External , Taking Xtampza ER 18 MG Capsule ER 12 Hour Abuse-Deterrent Oral , Taking Nystatin 422233 UNIT/GM Cream External , Taking Tamsulosin HCl 0.4 MG Capsule Oral , Taking oxyCODONE HCl 5 MG Tablet Oral , Taking Famotidine 20 MG Tablet TAKE 1 TABLET BY MOUTH DAILY Oral , Taking Pantoprazole Sodium 40 MG Tablet Delayed Release TAKE 1 TABLET BY MOUTH DAILY AT 630 Oral , Taking Clopidogrel Bisulfate 75 MG Tablet TAKE 1 TABLET BY MOUTH DAILY Oral , Taking Trelegy Ellipta 200-62.5-25 MCG/ACT Aerosol Powder Breath Activated USE 1 INHALATION BY MOUTH DIRECTED DAILY Inhalation , Taking Pregabalin 100 MG Capsule TAKE 1 CAPSULE BY MOUTH 3 TIMES A DAY Oral , Taking Cyclobenzaprine HCl 10 MG Tablet Oral , Taking Furosemide 20 MG Tablet Oral , Taking Amoxicillin-Pot Clavulanate 875-125 MG Tablet Oral , Taking Ipratropium-Albuterol 0.5-2.5 (3) MG/3ML Solution Inhalation , Taking Linezolid 600 MG Tablet TAKE 1 TABLET BY MOUTH EVERY 12 HOURS Oral , Taking hydrOXYzine HCl 25 MG Tablet TAKE 1 TABLET BY MOUTH THREE TIMES A DAY FOR ITCH Oral , Taking Atorvastatin Calcium 40 MG Tablet Oral , Taking Celecoxib 100 MG Capsule Oral , Taking Dexlansoprazole 60 MG Capsule Delayed Release Oral , Taking Xarelto 10 MG Tablet Oral , Taking predniSONE 10 MG Tablet PLEASE SEE ATTACHED FOR DETAILED DIRECTIONS Oral , Taking Triamcinolone Acetonide 0.1 % Cream USE 1 APPLICATION TOPICALLY DAILY TO RASH OF THE HAND External , Taking Naloxone HCl 4 MG/0.1ML Liquid PLEASE SEE ATTACHED FOR DETAILED DIRECTIONS Nasal , Taking Lisinopril 10 MG Tablet Oral , Medication List reviewed and reconciled with the patient * Allergies: A dvil: Throw up, Aleve: Throw up, Motrin: Throw up. Objective: * Vitals: Assessment: Plan: * Treatment: * Images: * The named appointment provid er may or may not be the originator of this progress note, and it is not deemed complete until electronically signed by the appointment provider. Sign off status: Pending * Provider: Arthur Tavera DPM Date: 0 10/22/2024 Generated for Qamar rock/Micki/Larry on: 04/13/2024 05:36 PM EST
--- NOTE | 2025-02-11 11:28 | MHC.PC.OV ---
Vital Signs 02/11/25 11:39 Height 5 ft 10 in Weight 215 lb 4 oz BMI 30.9 BMI Reason not done Patient refused/unable BP 120/60 Blood Pressure Location Rt brachial Position Sitting Respiration 16 Pulse 87 Pulse Source Pulse Oximeter Temp 97.2 F Temp Source Temporal Artery Scan Pulse Oximetry (%) 97 Oxygen Delivery Method Room Air Intake Visit Reasons: med check Intake Note: Russell presents in the office today for a medication check. Patient has been out of pain medication for 3 days. Allergies lemon Allergy (Verified 02/11/25 11:33) Anaphylaxis morphine Allergy (Verified 02/11/25 11:33) Anaphylaxis vancomycin Allergy (Verified 02/11/25 11:33) Chest Pain Tobacco use date assessed: 02/11/25 Dental Screening Dental Screen Date: 02/11/25 Did you have a dental visit in the last 12 months?: No Did you have a dental problem in the last 6 months where you did not have access to dental care?: No Was dental information given to patient?: Patient has dentist HPI HPI Comments History of Present Illness Details The patient is a 80 year old male with a past medical history of type 2 diabetes, CAD, CHF, COPD, chronic back pain presenting for hospital follow up COPD/BUTCH: Previously on . On trelegy. Following with pulm. Says increased shortness of breath over the past few weeks. No fevers. Weight stable CV: CHF, h/o afib, PAD, NSTEMI. Saw [facility] cardiology May hospitalization then follow up was scheduled outside. He wants to continue [facility] follow up . Echo LVEF 60 65% with moderate asymmetric septal hypertrophy with impaired relaxation filling pattern without elevated filling pressures with gjjk-sl-pbnxfqvb aortic stenosis and mildly dilated ascending aorta. Also has jntj-lo-bhtgddsl infrarenal abdominal aortic aneurysm at 4 cm being followed by vascular surgery. He was history of peripheral vascular disease had stents put in many years ago in [place] due to vascular insufficiency, being followed by vascular surgery again and has mild disease based on his IZABELA. He is currently on chronic anticoagulation with Xarelto because of blood clots and currently on 10 mg daily maintenance dose for usually venous thromboembolic disease. He is also on clopidogrel therapy. Has chronic toe/foot wounds, sacral wound-following vascular and wound. History of chronic pain-lumbar, neck, hip. legs. On xtampza, oxycodone, stable. Says past medications have included methadone, oxycodone, vicodin then on tramadol, lyrica, flexeril-was poorly controlled. Recent hospitalizations --[facility] 11/08-11/11 for UTI, hypokalemia. Farxiga was discontinued. --[facility] 10/22-10/28/24. Presented with intermittent episodes of CP, shortness of breath. Treated for acute on chronic dCHF, COPD exacerbation. Transitioned back to po diuretic and started on jardiance. Transitioned to po torsemide at 20mg daily. If weight > 2 lb in 1 day or 5 in one week take additional 20mg pm and call cardiology. PVC plan for outpatient ischemic work up. Has already seen [facility] outpatient. Pulmonary rehab nurse avl-no need for home . Furosemide transitioned to torsemide. DC'd on clopidogrol. ?xarelto. Has developed fungal groin rash -DC jardiance --August 08-Aug 09 2024. Presented after falling at home-tripped on carpeting, UA suggestive of UTI. Given keflex x 5 days. MRI c spine negative for acute, CT tspine with fracture of a T11 osteophyte, CT lspine without acute fracture, CT pelvis negative for hip fracture. Advanced DDD thoracolumbar spine. Patient is doing ok. He continues to have unsteadiness, generalized weakness most of which he attributes to arthritis and severe chronic pain. He has VNA in the home, has been assessed and recommendation for hospital bed, commode have been made. His mobility is poor. Supportive family --August hospitalization for focal PNA. Seen in follow up by colleague. --Hospitalized 02/26-03/02/24 at [facility]. presented to the ER with right foot swelling, redness and pain for 2 days. In ED received vancomycin. Had feels that arms and chest were on fire. Got tightness and heaviness in the chest. Became hypotensive to 62/36. Vanc stopped. xray foot without evidence of osteomyelitis. Went into afib. Got IVF, zosyn, doxyccyline. Continued on IV doxycycline, IV steroids and Lasix with good response. DCd on additional po 5 days of doxycycline -Hospitalized end of February 2024for pneumonia, COPD exacerbation. Has had appropriate follow up with pulmonary. Echo ordered given history of CHF, persistent shortness of breath. Cardiology appt pending ROS see HPI PHYSICAL EXAM: GENERAL: Alert and oriented x 3. NAD EYES: EOMI. Anicteric. HENT: Moist mucous membranes. No scleral icterus. No cervical lymphadenopathy. LUNGS: Clear to auscultation bilaterally. CARDIOVASCULAR: Regular rate and rhythm. No JVD. ABDOMEN: Soft, non-tender +bs EXTREMITIES: Bilateral chronic distal peripheral vascular changes SKIN: Warm, dry NEUROLOGIC: No focal neurological deficits. CN II-XII grossly intact PSYCHIATRIC: Cooperative. Appropriate mood and affect ON LICENSE OF [facility] Medical History Weakness Mental status alteration COPD (chronic obstructive pulmonary disease) GERD (gastroesophageal reflux disease) Hyperlipidemia Hypertension BPH (benign prostatic hyperplasia) CHF (congestive heart failure) Infrarenal abdominal aortic aneurysm (AAA) without rupture Peripheral vascular disease DDD (degenerative disc disease), lumbosacral Nicotine dependence, cigarettes, uncomplicated Nocturnal hypoxemia PAD (peripheral artery disease) Paroxysmal atrial fibrillation Social History Household Members: Other Household Members Other:: niece and family live upstairs Housing: House Do you presently have visiting nurse or other home services: No Alcohol intake: current Patient Tobacco Use Status: Current everyday Tobacco user Tobacco use type: Cigarette Cigarettes Per Day: 1 Years Smoked: 50 plus e-Cigarette/Vaping Use: Former Use Second Hand Smoke Exposure: No Advance Directives Date on File: 07/01/24 service: No Current occupational status: retired Cognitive needs: No Hearing needs: Yes Vision needs: Yes Questionnaire Thrive Questionnaire Date Thrive assessed: 10/07/24 ANTONIA-7 AMB Questionnaire ANTONIA-7 Date ANTONIA - 7 assessed: 10/07/24 Source: Developed by Drs. Russell Crouch, Tania Raya, Graham Luna and colleagues, with an educational jordan from [employer]. Physical exam (Primary Care) Vital Signs: Last Vital Signs Temp 97.2 F 02/11/25 11:39 Pulse 87 02/11/25 11:39 Resp 16 02/11/25 11:39 BP 120/60 02/11/25 11:39 Pulse Ox 97 02/11/25 11:39 Oxygen Delivery Method Room Air 02/11/25 11:39 BMI result Body Mass Index 30.9 Tobacco/Smoking Status: Tobacco use Status Tobacco use date assessed 02/11/25 02/11/25 11:43 Patient Tobacco Use Status Current everyday Tobacco 02/11/25 11:30 Tobacco use type Cigarette 02/11/25 11:30 e-Cigarette/Vaping Use Former Use 02/11/25 11:30 Thrive Assessment: Date of Thrive Assessment Date Thrive assessed 10/07/24 02/11/25 11:30 Coding Level of Care Code Est Pt Level 4 (16509) Complex EM visit Add On G2211 Diagnoses 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 Heart failure type: combined systolic and diastolic Heart failure chronicity: chronic PAD (peripheral artery disease) I73.9 DDD (degenerative disc disease), lumbosacral M51.379 Chronic obstructive pulmonary disease, unspecified COPD type J44.9 COPD type: unspecified COPD Assessment & Plan Assessment & Plan (1) CHF (congestive heart failure): Code(s): I50.9 - Heart failure, unspecified Category: Medical Qualifiers: Heart failure type: combined systolic and diastolic Heart failure chronicity: chronic Qualified Code(s): I50.42 - Chronic combined systolic (congestive) and diastolic (congestive) heart failure (2) PAD (peripheral artery disease): Comment: 2021 - right lower extremity angiogram x2 in [place] 2021 - right great toe amputation and [place] Code(s): I73.9 - Peripheral vascular disease, unspecified Category: Medical (3) DDD (degenerative disc disease), lumbosacral: Code(s): M51.379 - Other intervertebral disc degeneration, lumbosacral region without mention of lumbar back pain or lower extremity pain Category: Medical (4) COPD (chronic obstructive pulmonary disease): Code(s): J44.9 - Chronic obstructive pulmonary disease, unspecified Category: Medical Qualifiers: COPD type: unspecified COPD Qualified Code(s): J44.9 - Chronic obstructive pulmonary disease, unspecified Plan 80 year old male presenting for follow up CHF-request [facility] appt. Euvolemic. Continue current medications COPD-possible exacerbation, reports increased shortness of breath. Inhalers refilled. zpak and prednisone. Schedule follow up with pulm Chronic pain is stable on current medications which are refilled today Orders: Orders Complete Blood Count Auto Diff Today I10 - Essential (primary) hypertension, I35.0 - Nonrheumatic aortic (valve) stenosis, I50.42 - Chronic combined systolic (congestive) and diastolic (congestive) heart failure Comprehensive Met. Panel Today I10 - Essential (primary) hypertension, I35.0 - Nonrheumatic aortic (valve) stenosis, I50.42 - Chronic combined systolic (congestive) and diastolic (congestive) heart failure Lipid Panel Today I10 - Essential (primary) hypertension, I35.0 - Nonrheumatic aortic (valve) stenosis, I50.42 - Chronic combined systolic (congestive) and diastolic (congestive) heart failure TSH reflex Free T4 Today I10 - Essential (primary) hypertension, I35.0 - Nonrheumatic aortic (valve) stenosis, I50.42 - Chronic combined systolic (congestive) and diastolic (congestive) heart failure Medications: New prednisone 40 mg (2 x 20 mg) PO DAILY 6 tabs 0RF azithromycin For 250 mg dose pack: take 500 mg today (day 1), then 250 mg for 4 days (days 2-5) PO 6 tabs 0RF Refilled Xtampza ER (oxycodone myristate) partial fill upon patient request 18 mg PO BID 56 caps 0RF NS M51.372 - Other intervertebral disc degeneration, lumbosacral region with discogenic back pain and lower extremity pain ualnebzgswi-qcrvrtxmd-hidgguli 200-62.5-25 mcg (Trelegy Ellipta) 1 ea inhalation DAILY 60 ea 2RF ipratropium-albuterol 0.5 mg-3 mg(2.5 mg base)/3 mL 3 mL inhalation TID 180 mL 3RF oxycodone Partial Fill upon patient request. 5 mg PO Q4H PRN 168 tabs 0RF pain (scale score 7-10) G89.29 - Other chronic pain, M54.9 - Dorsalgia, unspecified albuterol sulfate 90 mcg/actuation 2 puffs inhalation Q6H PRN 8.5 grams 0RF shortness of breath or wheezing
[2025-02-11 11:39] VITALS: BP 120/60; PULSE 87; RESP 16; TEMP 36.2; O2SAT 97; BMI 30.9
--- OUTSIDE RECORDS SUMMARY | 2025-02-11 17:36 | XMS_ITS | Clinical Summary ---
Author Organization [address] Address [address] [place] [address] Phone Care Team Providers Care Oil Well Driller Name Role Phone Roland Morgan MD Primary Care Provider [phone] Allergies Active Allergy Reactions Criticality Noted Date [...] Diagnosed Date Coronary artery disease invo lving hughes coronary artery of hughes heart without angina pectoris 11/16/2024 Overview (11/16/2024): - treated in [place] the patient does not believe he has any stents - He reportedly had a cardiac cath a number of years ago at [facility] in [place], [place]--records requested - He had a pharmacologic nuclear stress test at [facility] [place] [facility] 09/03/2023 which showed no fixed or reversible [...] We have requested his cath report from [place]. Once his cath report is reviewed, we will decide with Dr. Magana further work up. Consideration can be give for cCTA vs cath depending on his cath from [place]. If we are unable to receive the cath in the next week or so, I will speak with Dr. Magana on his preference for investigating his CAD burden. Chronic heart failure with p reserved ejection fraction (CMS/HCC V24, CMS/HCC V28) 11/16/2024 Overview (11/16/2024): -Echocardiogram 08/2024 at [facility] showed LVEF normal 55 to 60%, normal [...] stenosis 11/16/2024 Overview (11/16/2024): -Echocardiogram 08/2024 at [facility] showed LVEF normal 55 to 60%, normal [...] Type Department Care Team Description 12/12/2024 Telephone [facility] [address] [place] [address] Rossi Arnett NP 11/16/2024 9:40 AM EDT Office Visit [facility] [address] [place] [address] Rossi Arnett NP Coronary artery disease involving hughes coronary artery of hughes heart without angina pectoris (Primary Dx); Chronic heart failure with preserved ejection fraction (CMS/HCC V24, CMS/HCC V28); Primary hypertension; Pure hypercholesterolemia; Nonrheumatic aortic valve stenosis from Last 3 Months Social History Tobacco [...] (Lipid Panel) 09/08/2024 Falls Risk Assessment 09/08/2024 Medicare Annual Wellness Visit 09/08/2024 Social Influencers of Health Screening 09/08/2024 Diabetes: Annual Urine Albumin-Creatinine Ratio (uACR) 11/16/2024 Diabetes: Blood Sugar Control Test (HGBA1C) 11/16/2024 COVID-19 Vaccine (2 - season) 2024 09/13/2024 Influenza Vaccine (#1) 2024 , 02/28/2024, 12/27/2022 Diabetes: Annual GFR (Glomerular Filtration Rate) 09/29/2025 [...] mmol/L LAB CHEMISTRY METHOD 09/29/2024 11:26 AM [facility] Potassium 3.4(L) 3.5 - 5.5 mmol/L LAB CHEMISTRY METHOD 09/29/2024 11:26 AM [facility] Chloride 103 96 - 110 mmol/L LAB CHEMISTRY METHOD 09/29/2024 11:26 AM [facility] CO2 34(H) 21 - 32 mmol/L LAB CHEMISTRY METHOD 09/29/2024 11:26 AM [facility] Anion Gap 3 3 - 11 LAB CHEMISTRY METHOD 09/29/2024 11:26 AM EDT [facility] Glucose 94 70 - 100 mg/dL LAB CHEMISTRY METHOD 09/29/2024 11:26 AM EDT [facility] BUN 18 5 - 25 mg/dL LAB CHEMISTRY METHOD 09/29/2024 11:26 AM [facility] Creatinine 0.98 0.70 - 1.30 mg/dL LAB CHEMISTRY METHOD 09/29/2024 11:26 AM EDT [facility] eGFR 78 >=60 mL/min/1. 73m2 LAB CHEMISTRY METHOD 09/29/2024 11:26 AM T [facility] Comment:Calculation based on the Chronic Kidney Disease Epidemiology Collaboration (CKD-EPI) equation refit without adjustment for race. BUN/Creatinine Ratio 18.4 LAB CHEMISTRY METHOD 09/29/2024 11:26 AM [facility] Calcium 8.5 8.5 - 10.5 mg/dL LAB CHEMISTRY METHOD 09/29/2024 11:26 AM T [facility] Blood Venous blood specimen / Unknown Venipuncture / Unknown 09/29/2024 7:30 AM EDT 09/29/2024 9:02 AM EDT us Roland Morgan MD LAB BLOOD ORDERABLES Final Resul t [facility] [address] [place] [address], from Last 3 Months or Most Recently Relevant to Health Maintenance Insurance MEDICAID - [place] [address] Care Teams Oil Well Driller Relationship Specialty Start Date End Date Roland Morgan MD [address] [place] [address] [address] [place] [address] PCP - General Geriatric Medicine 09/08/24
--- OUTSIDE RECORDS SUMMARY | 2025-02-11 17:36 | XMS_ITS | Patient Health Record ---
Author Organization [facility] laz CallManuelito Address [address] [place] [address] Care Team Providers Care Director Check Name Role Phone Kiana Mckenna MD Primary Care Provider Raul Romero Unavailable [phone] Allergies Allergen (clinical drug ingredient) Drug/Non Drug [...] MG Oral; Duration: 90 Days Active Nystatin 457331 UNIT/GM External; Durati on: 7 Days Active Xtampza ER 18 MG Oral; Duration: 28 Days Active Lisinopril 10 MG Oral; Duration: 90 Days Active Nystatin 820563 UNIT/GM External; Durati on: 30 Days Active [...] Problem Acquired hammer toe of right foot (4820445117449044) Other hammer toe(s) (acquired), right foot (M20.41) Active confirmed Problem Acquired hammer toe of left foot (5030577150624763) Other hammer toe(s) (acquired), left foot (M20.42) Active confirmed Problem Bilateral atherosclerosis of arteries of lower limbs (disorder) (69674906247025537 ) Atherosclerosis of [place] artery of both lower extremities, with unspecified presence of clinical manifestation (I70.203) Active confirmed Q7(A), Q8(2B), Q9(1B,2 C) Problem Localized, primary osteoarthritis of the ankle and/or foot (140268358) Arthritis of joint of lesser toe, left (M19.072) Active confirmed Problem Localized, primary osteoarthritis of the ankle and/or foot (743739330) Arthritis of joint of lesser toe, right (M19.071) Active confirmed Vital Signs Blood pressure diastolic 65 mm Hg 07/23/2024 Height 5 ft 11inch in 07/23/2024 Blood pressure systolic 130 mm Hg 07/23/2024 Weight 220 lbs 07/23/2024 BMI 30.68 kg/m2 07/23/2024 Procedures Procedure Date Ordered Date Performed Result Body Sit e 80902-[id number] NAIL, 6 OR MORE 07/23/2024 N/A [id number] SKIN LESIONS, OVER 4 07/23/2024 N/A Encounters Encounter Location Date Provider Diagnosis [facility] [address] [address] 07/23/2024 Raul Tavera Atherosclerosis of [place] artery of both lower extremities, with unspecified presence of clinical manifestation I70.203 ; Tinea unguium B35.1 ; Pain in right toe(s) M79.674 ; Pain in left toe(s) M79.675 ; Other hammer toe(s) (acquired), right foot M20.41 ; Arthritis of joint of lesser toe, right M19.071 ; Other hammer toe(s) (acquired), left foot M20.42 and Arthritis of joint of lesser toe, left M19.072 [facility] [address] 10/22/2024 Raul Tavera Assessments Encounter Date Diagnosis (ICD Code) Assessment Notes Treatment Notes Treatment Clinical Notes Section Notes 07/23/2024 Tinea 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) 07/23/2024 Atherosclerosis of [place] artery of both lower extremities, with unspecified [...] Treatment Pending Test Test Name Order Date [id number] NAIL, 6 OR MORE 07/23/2024 [id number] SKIN LESIONS, OVER 4 07/24/19 Insurance Providers Payer Name Payer Address Payer Phone Subscriber Number Group Number Insured Name Patient Relationship to Insured Coverage Start Date Coverage End Date [employer] Medicare Adv-[id number] [address] [address] [place] [address] [id number] Russell Saeed Self - patient is the insured Medical (General) History Medical History History ICD Code asthma Back,Hip,and Knee pain Broken bones Headaches/Migraines Heart disease Hiatal hernia Numbness (Neuropathy) Poor circulation Reflux ( GERD) Stomach ulcer Ulcer (Skin) Vascular phlebitis (clots) Measles Mumps Chicken pox Joint implants/screws Hypertension Hypercholesterolemia Surgical History Surgery Date(Month/Year) back surgery 2014 Hospitalization History Reason Date(Month/Year) [facility] 05/2024
--- OUTSIDE RECORDS SUMMARY | 2025-02-11 17:36 | XMS_ITS | Encounter Summary ---
Author Organization Address [address] [place] [address] Care Team Providers Care Staff Midwife/Apprenticeship Director Name Role Phone Roland Morgan MD Primary Care Provider [phone] Encounter Details Date Type Department Care Team (Late st Contact Info) Description 09/29/2024 Lab Requisition [facility] - Main Lab 299 Replaced By [facility] [place] [address] Roland Morgan MD [address] [place] [address] Hypokalemia Social History Tobacco Use Types Packs/Day [...] Basic metabolic panel (09/29/2024 7:30 AM EDT) [facility] Signature Sodium 140 133 - 145 mmol/L LAB CHEMISTRY METHOD 09/29/2024 11:26 AM EDT [facility] LAB Potassium 3.4(L) 3.5 - 5.5 mmol/L LAB CHEMISTRY METHOD 09/29/2024 11:26 AM EDT [facility] Chloride 103 96 - 110 mmol/L LAB CHEMISTRY METHOD 09/29/2024 11:26 AM [facility] CO2 34(H) 21 - 32 mmol/L LAB CHEMISTRY METHOD 09/29/2024 11:26 AM [facility] Anion Gap 3 3 - 11 LAB CHEMISTRY METHOD 09/29/2024 11:26 AM [facility] Glucose 94 70 - 100 mg/dL LAB CHEMISTRY METHOD 09/29/2024 11:26 AM [facility] BUN 18 5 - 25 mg/dL LAB CHEMISTRY METHOD 09/29/2024 11:26 AM [facility] Creatinine 0.98 0.70 - 1.30 mg/dL LAB CHEMISTRY METHOD 09/29/2024 11:26 AM [facility] LAB eGFR 78 >=60 mL/min/1. 73m2 LAB CHEMISTRY METHOD 09/29/2024 11:26 AM [facility] Comment:Calculation based on the Chronic Kidney Disease Epidemiology Collaboration (CKD-EPI) equation refit without adjustment for race. BUN/Creatinine Ratio 18.4 LAB CHEMISTRY METHOD 09/29/2024 11:26 AM [facility] Calcium 8.5 8.5 - 10.5 mg/dL LAB CHEMISTRY METHOD 09/29/2024 11:26 AM [facility] Blood Venous blood specimen / Unknown Venipuncture / Unknown 09/29/2024 7:30 AM EDT 09/29/2024 9:02 AM EDT us Roland Morgan MD LAB BLOOD ORDERABLES Final Resul t [facility] [address] [place] [address], documented in this encounter Visit Diagnoses Diagnosis Hypokalemia Hypopotassemia documented in this encounter Care Teams Staff Midwife/Apprenticeship Director Relationship Specialty Start Date End Date Roland Morgan MD [address] [place] [address] [address] [place] [address] PCP - General Geriatric Medicine 09/08/24 documented as of this encounter
--- OUTSIDE RECORDS SUMMARY | 2025-02-11 17:36 | XMS_ITS | Encounter Summary ---
Author Organization [facility] Address [address] [place] [address] Care Team Providers Care Boxing Instructor Name Role Phone Roland Morgan MD Primary Care Provider [phone] Encounter Details Date Type Department Care Team (Late st Contact Info) Description 09/17/2024 Lab Requisition [facility] - Main Lab 299 [facility] [place] [phone] Roland Morgan MD [address] [place], [place] [id number] Other malaise; Hepatic encephalopathy (CMS/HCC V24, CMS/HCC [...] mmol/L LAB CHEMISTRY METHOD 09/20/2024 12:47 PM [facility] Potassium 3.5 3.5 - 5.5 mmol/L LAB CHEMISTRY METHOD 09/20/2024 12:47 PM [facility] Chloride 105 96 - 110 mmol/L LAB CHEMISTRY METHOD 09/20/2024 12:47 PM [facility] CO2 32 21 - 32 mmol/L LAB CHEMISTRY METHOD 09/20/2024 12:47 PM [facility] Anion Gap 6 3 - 11 LAB CHEMISTRY METHOD 09/20/2024 12:47 PM [facility] Glucose 98 70 - 100 mg/dL LAB CHEMISTRY METHOD 09/20/2024 12:47 PM [facility] BUN 16 5 - 25 mg/dL LAB CHEMISTRY METHOD 09/20/2024 12:47 PM [facility] Creatinine 1.13 0.70 - 1.30 mg/dL LAB CHEMISTRY METHOD 09/20/2024 12:47 PM [facility] LAB eGFR 66 >=60 mL/min/1. 73m2 LAB CHEMISTRY METHOD 09/20/2024 12:47 PM [facility] Comment:Calculation based on the Chronic Kidney Disease Epidemiology Collaboration (CKD-EPI) equation refit without adjustment for race. BUN/Creatinine Ratio 14.2 LAB CHEMISTRY METHOD 09/20/2024 12:47 PM [facility] Calcium 8.2(L) 8.5 - 10.5 mg/dL LAB CHEMISTRY METHOD 09/20/2024 12:47 PM [facility] Blood Venous blood specimen / Unknown Venipuncture / Unknown 09/20/2024 8:33 AM EDT 09/20/2024 11:07 AM EDT Roland Morgan MD LAB BLOOD ORDERABLES Final Resul t [facility] [address] [place] [address], * (ABNORMAL) Complete blood count (09/20/2024 8:33 AM EDT) [facility] Signature WBC 7.0 4.8 - 10.8 K/mcL LAB HEMETOLOGY METHOD 09/20/2024 12:35 PM EDT [facility] RBC 4.20(L) 4.50 - 5.50 M/mcL LAB HEMETOLOGY METHOD 09/20/2024 12:35 PM EDT [facility] Hemoglobin 11.9(L) 13.5 - 17.5 g/dL LAB HEMETOLOGY METHOD 09/20/2024 12:35 PM EDT [facility] Hematocrit 38.1(L) 42.0 - 54.0 % LAB HEMETOLOGY METHOD 09/20/2024 12:35 PM EDT [facility] MCV 91.1 79.0 - 98.0 FL LAB HEMETOLOGY METHOD 09/20/2024 12:35 PM EDT [facility] MCH 28.5 27.0 - 32.0 pcg LAB HEMETOLOGY METHOD 09/20/2024 12:35 PM EDT [facility] MCHC 31.2(L) 32.0 - 37.0 g/dL LAB HEMETOLOGY METHOD 09/20/2024 12:35 PM EDT [facility] RDW 14.7 11.0 - 15.0 % LAB HEMETOLOGY METHOD 09/20/2024 12:35 PM EDT [facility] Platelets 247 130 - 400 K/mcL LAB HEMETOLOGY METHOD 09/20/2024 12:35 PM EDT [facility] MPV 11.1(H) 7.0 - 11.0 FL LAB HEMETOLOGY METHOD 09/20/2024 12:35 PM EDT [facility] NRBC 0.0 <1.0 % LAB HEMETOLOGY METHOD 09/20/2024 12:35 PM EDT [facility] NRBC Absolute 0.00 <0.10 K/mcL LAB HEMETOLOGY METHOD 09/20/2024 12:35 PM EDT [facility] Blood Venous blood specimen / Unknown Venipuncture / Unknown 09/20/2024 8:33 AM EDT 09/20/2024 11:04 AM EDT us Roland Morgan MD LAB BLOOD ORDERABLES Final Resul t [facility] [address] [place] [address], documented in this encounter Visit Diagnoses Diagnosis Other malaise Hepatic encephalopathy (CMS/HCC V24, CMS/HCC V28) Hepatic encephalopathy documented in this encounter Care Teams Boxing Instructor Relationship Specialty Start Date End Date Roland Morgan MD [address] [place] [address] [address] [place] [address] PCP - General Geriatric Medicine 09/08/24 documented as of this encounter
--- OUTSIDE RECORDS SUMMARY | 2025-02-11 17:37 | XMS_ITS | Encounter Summary ---
Author Organization [facility] Address [address] [place] [address] Care Team Providers Care Electroplating Laborer Name Role Phone Roland Morgan MD Primary Care Provider [phone] Encounter Details Date Type Department Care Team (Late st Contact Info) Description 09/10/2024 Lab Requisition [facility] - Main Lab 299 [facility] [place] [phone] Roland Morgan MD [address] [place], [place] [phone] Other malaise; Hepatic encephalopathy (CMS/HCC V24, CMS/HCC [...] MD LAB BLOOD ORDERABLES Final Resul t [facility] [address] [place] [address], * (ABNORMAL) Complete blood count (09/13/2024 5:42 AM EDT) WBC 8.9 4.8 - 10.8 K/mcL LAB HEMETOLOGY METHOD 09/13/2024 10:42 AM EDT [facility] LAB RBC 4.20(L) 4.50 - 5.50 M/[facility] LAB HEMETOLOGY METHOD 09/13/2024 10:42 AM EDT [facility] LAB Hemoglobin 12.0(L) 13.5 - 17.5 g/dL LAB HEMETOLOGY METHOD 09/13/2024 10:42 AM EDT [facility] LAB Hematocrit 37.4(L) 42.0 - 54.0 % LAB HEMETOLOGY METHOD 09/13/2024 10:42 AM EDT [facility] MCV 89.9 79.0 - 98.0 FL LAB HEMETOLOGY METHOD 09/13/2024 10:42 AM EDT [facility] LAB MCH 28.8 27.0 - 32.0 pcg LAB HEMETOLOGY METHOD 09/13/2024 10:42 AM EDT [facility] MCHC 32.1 32.0 - 37.0 g/dL LAB HEMETOLOGY METHOD 09/13/2024 10:42 AM EDT [facility] RDW 13.5 11.0 - 15.0 % LAB HEMETOLOGY METHOD 09/13/2024 10:42 AM EDT [facility] LAB Platelets 280 130 - 400 K/mcL LAB HEMETOLOGY METHOD 09/13/2024 10:42 AM EDT [facility] MPV 10.2 7.0 - 11.0 FL LAB HEMETOLOGY METHOD 09/13/2024 10:42 AM EDT [facility] NRBC 0.0 <1.0 % LAB HEMETOLOGY METHOD 09/13/2024 10:42 AM EDT [facility] LAB NRBC Absolute 0.00 <0.10 K/mcL LAB HEMETOLOGY METHOD 09/13/2024 10:42 AM EDT [facility] LAB Blood Venous blood specimen / Unknown Venipuncture / Unknown 09/13/2024 5:42 AM EDT 09/13/2024 9:21 AM EDT us Roland Morgan MD LAB BLOOD ORDERABLES Final Resul t [facility] [address] [place] [address], documented in this encounter Visit Diagnoses Diagnosis Other malaise Hepatic encephalopathy (CMS/HCC V24, CMS/HCC V28) Hepatic encephalopathy documented in this encounter Care Teams Electroplating Laborer Relationship Specialty Start Date End Date Roland Morgan MD [address] [place] [address] [address] [place] [address] PCP - General Geriatric Medicine 09/08/24 documented as of this encounter
--- OUTSIDE RECORDS SUMMARY | 2025-02-11 17:37 | XMS_ITS | Clinical Summary ---
Author Organization [facility] Address [facility] [place] [address] Care Team Providers Care Outcomes Specialist Name Role Phone Kashif, Maida Raheem KU [...] Hypertension CAD (coronary artery disease) History of [place] (myocardial infarction) (HFpEF) heart failure with preserved [...] any time in the past 12 m [facility], were you homeless or living in a half-way (including now)? No 08/20/2023 DH IPV Inpatient [...] month 02/19/2024 08/19/2023, Covid-19 Vaccine (1 - 2024-2 6 season) 2024 Influenza (Flu) vaccine (1 o [...] - 199 mg/dL 12/10/2023 1:16 AM EDT [facility] Comment:Glucose Concentratio n >=200 mg/dL plus symptoms is consistent with Diabetes Mellitus. Blood Urea Nitrogen 24(H) 10 - 20 mg/dL 12/10/2023 1:16 AM EDT [facility] Creatinine 1.05 0.80 - 1.50 mg/dL 12/10/2023 1:16 AM EDT [facility] Sodium 140 135 - 145 mMol/L 12/10/2023 1:16 AM EDT [facility] Potassium 4.2 3.5 - 5.0 mMol/L 12/10/2023 1:16 AM EDT [facility] Chloride 105 98 - 107 mMol/L 12/10/2023 1:16 AM EDT [facility] Carbon Dioxide 24 22 - 31 mMol/L 12/10/2023 1:16 AM EDT [facility] Anion Gap 11 5 - 15 mMol/L 12/10/2023 1:16 AM EDT [facility] Calcium 8.2(L) 8.5 - 10.5 mg/dL 12/10/2023 1:16 AM EDT [facility] Est Glomerular Filtration Rate - Male 73 mL/min/1. 73 m 12/10/2023 1:16 AM EDT [facility] Comment: This patient's estimated [...] Mcgill DO CHEMISTRY ORDERABLES Final Re sult [facility] [place] [address] * (ABNORMAL) Hemoglobin A1c (08/19/2023 2:16 PM EDT) Hemoglobin A1c 6.2(H) 4.3 - 5.6 % [facility] Comment: Reference Range: 4.3 [...] Mellitus, Diabetes Care 2013; 36: Suppl. 1, F31-76 Estimated Average Glucose See note mg/dL [facility] Comment: Estimated Average Glucose not appropriate for patients over 70 years of age. Blood Venous Draw / Unknown 08/19/2023 2:16 PM EDT 08/19/2023 11:47 PM EDT Narrative Resulting Agency Comment Spec In Lab Chuy Balderas MD CHEMISTRY ORDERABLES Final Result [facility] [place] [address] from Last 3 Months or Most Recently Relevant to Health Maintenance Insurance [facility] MEDICARE [place]ICAID [place] Advance Directives * [...] Status decision made by: Patient Care Teams Outcomes Specialist Relationship Specialty Start Date End Date Maida Rowland APRN [address] [place] [phone] PCP - General Internal Medicine 11/07/23
--- OUTSIDE RECORDS SUMMARY | 2025-02-11 17:37 | XMS_ITS | Encounter Summary ---
Author Organization [facility] Address [address] [place] [address] Care Team Providers Care Bond Runner Name Role Phone Roland Morgan MD Primary Care Provider [phone] Encounter Details Date Type Department Care Team (Late st Contact Info) Description 09/24/2024 Lab Requisition [facility] - Main Lab 299 [facility] [place] [phone] Roland Morgan MD [address] [place], [place] [phone] Other malaise; Hepatic encephalopathy (CMS/HCC V24, CMS/HCC [...] mmol/L LAB CHEMISTRY METHOD 09/27/2024 11:47 AM [facility] Potassium 3.1(L) 3.5 - 5.5 mmol/L LAB CHEMISTRY METHOD 09/27/2024 11:47 AM [facility] Chloride 102 96 - 110 mmol/L LAB CHEMISTRY METHOD 09/27/2024 11:47 AM [facility] CO2 28 21 - 32 mmol/L LAB CHEMISTRY METHOD 09/27/2024 11:47 AM [facility] Anion Gap 10 3 - 11 LAB CHEMISTRY METHOD 09/27/2024 11:47 AM [facility] Glucose 97 70 - 100 mg/dL LAB CHEMISTRY METHOD 09/27/2024 11:47 AM [facility] BUN 19 5 - 25 mg/dL LAB CHEMISTRY METHOD 09/27/2024 11:47 AM [facility] Creatinine 1.09 0.70 - 1.30 mg/dL LAB CHEMISTRY METHOD 09/27/2024 11:47 AM [facility] eGFR 69 >=60 mL/min/1. 73m2 LAB CHEMISTRY METHOD 09/27/2024 11:47 AM [facility] Comment:Calculation based on the Chronic Kidney Disease Epidemiology Collaboration (CKD-EPI) equation refit without adjustment for race. BUN/Creatinine Ratio 17.4 LAB CHEMISTRY METHOD 09/27/2024 11:47 AM [facility] Calcium 8.1(L) 8.5 - 10.5 mg/dL LAB CHEMISTRY METHOD 09/27/2024 11:47 AM [facility] Blood Venous blood specimen / Unknown Venipuncture / Unknown 09/27/2024 7:42 AM EDT 09/27/2024 10:00 AM EDT Roland Morgan MD LAB BLOOD ORDERABLES Final Resul t [facility] [address] [place] [address], * (ABNORMAL) Complete blood count (09/27/2024 7:42 AM EDT) WBC 7.8 4.8 - 10.8 K/mcL LAB HEMETOLOGY METHOD 09/27/2024 10:49 AM EDT [facility] RBC 4.00(L) 4.50 - 5.50 M/[facility] LAB HEMETOLOGY METHOD 09/27/2024 10:49 AM EDT [facility] Hemoglobin 11.5(L) 13.5 - 17.5 g/dL LAB HEMETOLOGY METHOD 09/27/2024 10:49 AM EDT [facility] Hematocrit 35.6(L) 42.0 - 54.0 % LAB HEMETOLOGY METHOD 09/27/2024 10:49 AM EDT [facility] MCV 88.1 79.0 - 98.0 FL LAB HEMETOLOGY METHOD 09/27/2024 10:49 AM EDT [facility] MCH 28.5 27.0 - 32.0 pcg LAB HEMETOLOGY METHOD 09/27/2024 10:49 AM EDT [facility] MCHC 32.3 32.0 - 37.0 g/dL LAB HEMETOLOGY METHOD 09/27/2024 10:49 AM EDT [facility] RDW 14.1 11.0 - 15.0 % LAB HEMETOLOGY METHOD 09/27/2024 10:49 AM EDT [facility] Platelets 231 130 - 400 K/mcL LAB HEMETOLOGY METHOD 09/27/2024 10:49 AM EDT [facility] MPV 11.1(H) 7.0 - 11.0 FL LAB HEMETOLOGY METHOD 09/27/2024 10:49 AM EDT [facility] NRBC 0.0 <1.0 % LAB HEMETOLOGY METHOD 09/27/2024 10:49 AM EDT [facility] NRBC Absolute 0.00 <0.10 K/mcL LAB HEMETOLOGY METHOD 09/27/2024 10:49 AM EDT [facility] Blood Venous blood specimen / Unknown Venipuncture / Unknown 09/27/2024 7:42 AM EDT 09/27/2024 9:57 AM EDT us Roland Morgan MD LAB BLOOD ORDERABLES Final Resul t [facility] [address] [place] [address], documented in this encounter Visit Diagnoses Diagnosis Other malaise Hepatic encephalopathy (CMS/HCC V24, CMS/HCC V28) Hepatic encephalopathy documented in this encounter Care Teams Bond Runner Relationship Specialty Start Date End Date Roland Morgan MD [address] [place] [address] [address] [place] [address] PCP - General Geriatric Medicine 09/08/24 documented as of this encounter
--- OUTSIDE RECORDS SUMMARY | 2025-02-11 17:37 | XMS_ITS | Encounter Summary ---
Author Organization [facility] Address [address] [place] [address] Care Team Providers Care Slip Seat Coverer Name Role Phone Roland Morgan MD Primary Care Provider [phone] Encounter Details Date Type Department Care Team (Late st Contact Info) Description 09/08/2024 Lab Requisition [facility] - Main Lab [address] [facility] [place] [address] Roland Morgan MD [address] [place], [place] [id number] Hepatic encephalopathy (CMS/HCC V24, CMS/HCC V28) Social [...] mmol/L LAB CHEMISTRY METHOD 09/08/2024 10:34 AM [facility] Potassium 3.9 3.5 - 5.5 mmol/L LAB CHEMISTRY METHOD 09/08/2024 10:34 AM [facility] Chloride 95(L) 96 - 110 mmol/L LAB CHEMISTRY METHOD 09/08/2024 10:34 AM [facility] CO2 32 21 - 32 mmol/L LAB CHEMISTRY METHOD 09/08/2024 10:34 AM [facility] Anion Gap 8 3 - 11 LAB CHEMISTRY METHOD 09/08/2024 10:34 AM [facility] Glucose 97 70 - 100 mg/dL LAB CHEMISTRY METHOD 09/08/2024 10:34 AM [facility] BUN 25 5 - 25 mg/dL LAB CHEMISTRY METHOD 09/08/2024 10:34 AM [facility] Creatinine 0.99 0.70 - 1.30 mg/dL LAB CHEMISTRY METHOD 09/08/2024 10:34 AM [facility] eGFR 77 >=60 mL/min/1. 73m2 LAB CHEMISTRY METHOD 09/08/2024 10:34 AM [facility] Comment:Calculation based on the Chronic Kidney Disease Epidemiology Collaboration (CKD-EPI) equation refit without adjustment for race. BUN/Creatinine Ratio 25.3 LAB CHEMISTRY METHOD 09/08/2024 10:34 AM [facility] Calcium 8.8 8.5 - 10.5 mg/dL LAB CHEMISTRY METHOD 09/08/2024 10:34 AM [facility] AST (SGOT) 28 10 - 42 unit/L LAB CHEMISTRY METHOD 09/08/2024 10:34 AM [facility] ALT (SGPT) 37 10 - 60 unit/L LAB CHEMISTRY METHOD 09/08/2024 10:34 AM [facility] Alkaline Phosphatase 100 42 - 121 unit/L LAB CHEMISTRY METHOD 09/08/2024 10:34 AM EDT [facility] Total Protein 6.2 6.0 - 8.0 g/dL LAB CHEMISTRY METHOD 09/08/2024 10:34 AM [facility] Albumin 2.5(L) 3.2 - 5.0 g/dL LAB CHEMISTRY METHOD 09/08/2024 10:34 AM EDT [facility] Total Bilirubin 0.4 0.0 - 1.4 mg/dL LAB CHEMISTRY METHOD 09/08/2024 10:34 AM T [facility] Blood Venous blood specimen / Unknown Venipuncture / Unknown 09/08/2024 6:57 AM EDT 09/08/2024 8:56 AM EDT us Roland Morgan MD LAB BLOOD ORDERABLES Final Resul t [facility] [address] [place] [address], * (ABNORMAL) Complete blood count (09/08/2024 6:57 AM EDT) WBC 12.3(H) 4.8 - 10.8 K/mcL LAB HEMETOLOGY METHOD 09/08/2024 10:13 AM [facility] RBC 4.40(L) 4.50 - 5.50 M/[facility] LAB HEMETOLOGY METHOD 09/08/2024 10:13 AM [facility] Hemoglobin 12.5(L) 13.5 - 17.5 g/dL LAB HEMETOLOGY METHOD 09/08/2024 10:13 AM [facility] Hematocrit 39.2(L) 42.0 - 54.0 % LAB HEMETOLOGY METHOD 09/08/2024 10:13 AM [facility] MCV 88.9 79.0 - 98.0 FL LAB HEMETOLOGY METHOD 09/08/2024 10:13 AM EDT [facility] MCH 28.3 27.0 - 32.0 pcg LAB HEMETOLOGY METHOD 09/08/2024 10:13 AM EDT [facility] MCHC 31.9(L) 32.0 - 37.0 g/dL LAB HEMETOLOGY METHOD 09/08/2024 10:13 AM EDT [facility] RDW 13.5 11.0 - 15.0 % LAB HEMETOLOGY METHOD 09/08/2024 10:13 AM EDT [facility] Platelets 302 130 - 400 K/mcL LAB HEMETOLOGY METHOD 09/08/2024 10:13 AM T [facility] MPV 10.0 7.0 - 11.0 FL LAB HEMETOLOGY METHOD 09/08/2024 10:13 AM EDT [facility] NRBC 0.0 <1.0 % LAB HEMETOLOGY METHOD 09/08/2024 10:13 AM T [facility] NRBC Absolute 0.00 <0.10 K/mcL LAB HEMETOLOGY METHOD 09/08/2024 10:13 AM [facility] Blood Venous blood specimen / Unknown Venipuncture / Unknown 09/08/2024 6:57 AM EDT 09/08/2024 8:56 AM EDT us Roland Morgan MD LAB BLOOD ORDERABLES Final Resul t [facility] [address] [place] [address], documented in this encounter Visit Diagnoses Diagnosis Hepatic encephalopathy (CMS/HCC V24, CMS/HCC V28) Hepatic encephalopathy documented in this encounter Care Teams Slip Seat Coverer Relationship Specialty Start Date End Date Roland Morgan MD [address] [place], [place] [id number] [place] [address] PCP - General Geriatric Medicine 09/08/24 documented as of this encounter
--- OUTSIDE RECORDS SUMMARY | 2025-02-11 17:37 | XMS_ITS | Encounter Summary ---
Author Organization [facility] Address [address] [place] [address] Care Team Providers Care Conciliation Court Judge Name Role Phone Roland Morgan MD Primary Care Provider [phone] Encounter Details Date Type Department Care Team (Late st Contact Info) Description 09/15/2024 Lab Requisition [facility] - Main Lab [address] [facility] [place] [address] Roland Morgan MD [address] [place] [address] Hypokalemia Social History Tobacco Use Types Packs/Day [...] LAB CHEMISTRY METHOD 09/15/2024 10:48 AM EDT [facility] Potassium 3.9 3.5 - 5.5 mmol/L LAB CHEMISTRY METHOD 09/15/2024 10:48 AM EDT [facility] Chloride 104 96 - 110 mmol/L LAB CHEMISTRY METHOD 09/15/2024 10:48 AM T [facility] CO2 30 21 - 32 mmol/L LAB CHEMISTRY METHOD 09/15/2024 10:48 AM [facility] Anion Gap 7 3 - 11 LAB CHEMISTRY METHOD 09/15/2024 10:48 AM [facility] Glucose 133(H) 70 - 100 mg/dL LAB CHEMISTRY METHOD 09/15/2024 10:48 AM T [facility] BUN 21 5 - 25 mg/dL LAB CHEMISTRY METHOD 09/15/2024 10:48 AM [facility] Creatinine 1.11 0.70 - 1.30 mg/dL LAB CHEMISTRY METHOD 09/15/2024 10:48 AM [facility] eGFR 68 >=60 mL/min/1. 73m2 LAB CHEMISTRY METHOD 09/15/2024 10:48 AM T [facility] Comment:Calculation based on the Chronic Kidney Disease Epidemiology Collaboration (CKD-EPI) equation refit without adjustment for race. BUN/Creatinine Ratio 18.9 LAB CHEMISTRY METHOD 09/15/2024 10:48 AM [facility] Calcium 8.2(L) 8.5 - 10.5 mg/dL LAB CHEMISTRY METHOD 09/15/2024 10:48 AM [facility] Blood Venous blood specimen / Unknown Venipuncture / Unknown 09/15/2024 7:11 AM EDT 09/15/2024 9:41 AM EDT us Roland Morgan MD LAB BLOOD ORDERABLES Final Resul t [facility] [address] [place] [address], documented in this encounter Visit Diagnoses Diagnosis Hypokalemia Hypopotassemia documented in this encounter Care Teams Conciliation Court Judge Relationship Specialty Start Date End Date Roland Morgan MD [address] [place] [address] [address] [place] [address] PCP - General Geriatric Medicine 09/08/24 documented as of this encounter
== END 2025-02-11 12:11 | disposition home or self-care (01) ==
LOC: HO.HMCFM 11:24
PROVIDERS: PCP Internal Medicine; Visit Provider Internal Medicine
DX: I50.42 Chronic combined systolic (congestive) and diastolic (congestive) heart failure (principal); I73.9 Peripheral vascular disease, unspecified; M51.379 Other intervertebral disc degeneration, lumbosacral region without mention of lumbar back pain or lower extremity pain; J44.9 Chronic obstructive pulmonary disease, unspecified

== ENCOUNTER → 2025-02-11 11:24 | Outpatient (BNVA) | payer MEDICARE, MEDICAID, SELFPAY | PROVIDERS: PCP Internal Medicine; Visit Provider Internal Medicine | DX: I50.42 Chronic combined systolic (congestive) and diastolic (congestive) heart failure (principal); I73.9 Peripheral vascular disease, unspecified; M51.379 Other intervertebral disc degeneration, lumbosacral region without mention of lumbar back pain or lower extremity pain; J44.9 Chronic obstructive pulmonary disease, unspecified; I10 Essential (primary) hypertension; I35.0 Nonrheumatic aortic (valve) stenosis; G89.29 Other chronic pain; M54.9 Dorsalgia, unspecified; Z09 Encounter for follow-up examination after completed treatment for conditions other than malignant neoplasm | CPT/HCPCS: 99212 ==